=== PATIENT | female | born 1945 | race Caucasian/White ===

== ENCOUNTER → 2019-02-10 | Outpatient (CLI) | payer MEDICARE ==
[~2019-02-10] MED LIST: AC500T PO; ALBU8.5H2 IH; ARMOUR THYROID; ASP81CT PO; ASPI-875 PO; CIPR-17 PO; DIAZ2TAB2 PO; DOXY100C42; ESTR0.5T; FLUC200T45 PO; IBP800T PO; IPRA3AMP19 IH; KETO75CA PO; LEVO500T69 PO; LOVA20TA2 PO; NORE1TAB6; PHEN-640 PO; PRCD5U PO; PRD10T PO; PRD20T PO; PROP20TA5 PO; PROP60CA PO; PROP60TA16 PO; PROPRANOLOL; SMTR50T PO; SULF-222; TAMS0.4C98 PO; THYR60TA2 PO; ZOLM5TAB8 PO
[2019-02-10 17:00] LABS: BASOPHILS % (AUTO) 0 % (0-10); EOSINOPHILS # (AUTO) 0.3 10^3/uL (0.0-0.3); EOSINOPHILS % (AUTO) 2 % (0-10); HEMATOCRIT 43 % (35-52); HEMOGLOBIN 14.3 G/DL (11.5-16.0); LYMPHOCYTES # (AUTO) 3.8 X 10^3 (1.0-4.0); LYMPHOCYTES % (AUTO) 24 % (12-44); MEAN CORPUSCULAR HEMOGLOBIN 30 PG (25-34); MEAN CORPUSCULAR HGB CONC 33 G/DL (32-36); MEAN CORPUSCULAR VOLUME 91 FL (80-99); MEAN PLATELET VOLUME 9.6 FL (7.4-10.4); MONOCYTES # (AUTO) 1.4 X 10^3 (0.0-1.0); MONOCYTES % (AUTO) 9 % (0-12); NEUTROPHILS # (AUTO) 10.2 X 10^3 (1.8-7.8); NEUTROPHILS % (AUTO) 65 % (42-75); PLATELET COUNT 337 10^3/uL (130-400); RED CELL DISTRIBUTION WIDTH 14.7 % (10.0-14.5); WHITE BLOOD COUNT 15.7 10^3/uL (4.3-11.0)
[2019-02-10 17:21] LABS: FIBRIN DEGRADATION PRODUCTS 0.83 UG/ML (0.00-0.49)
--- NOTE | 2019-02-10 17:29 | Diagnostic Imaging Report ---
PROCEDURE: US right lower extremity venous. TECHNIQUE: Multiple real-time grayscale images were obtained over the right lower extremity in various projections. Additional spectral analysis and color Doppler duplex images were also obtained. INDICATION: Right lower extremity pain. COMPARISON: None available. FINDINGS: The visualized deep venous structures of the right lower extremity demonstrate normal compression, flow, and augmentation. Limited evaluation in the area of pain in the medial left calf demonstrates no focal abnormality. No significant superficial edema or loculated fluid collection is demonstrated. IMPRESSION: No evidence of DVT. Dictated by: Dictated on workstation # [id number]
[2019-02-10 17:42] LABS: EOSINOPHILS % (MANUAL) 1 %; LYMPHOCYTES % (MANUAL) 25 %; MONOCYTES % (MANUAL) 11 %; NEUTROPHILS % (MANUAL) 63 %; RBC MORPH NORMAL
== END ==
LOC: RAD 16:35
PROVIDERS: ATTEND Nurse Practitioner Family
DX: M79.604 Pain in right leg (principal)
CPT/HCPCS: 36415; 85007; 85027; 85379; 85610

== ENCOUNTER → 2019-02-25 | Outpatient (CLI) | payer MEDICARE ==
--- NOTE | 2019-02-25 14:17 | Diagnostic Imaging Report ---
INDICATION: Back pain. Time of exam 12:42 p.m. FINDINGS: Three views of the lumbar spine were obtained. Curvature and alignment is normal. There is superior endplate compression deformity involving L1 and L4 vertebral bodies. Age of these are indeterminate. No definite retropulsion is seen. There is some multilevel facet arthropathy. Abdominal aorta is calcified. IMPRESSION: There are superior endplate fractures with some mild compression involving L1 and L4, age indeterminate. MRI would be recommended to evaluate acuity. Dictated by: Dictated on workstation # [id number]
--- NOTE | 2019-02-25 14:41 | Diagnostic Imaging Report ---
INDICATION: Right-sided pelvic pain. TIME OF EXAM: 12:43 p.m. Single AP view of the pelvis shows normal femoroacetabular alignment. Hip joint spaces are fairly well-maintained. The femoral heads and necks are intact. There are no fractures are seen. Rami are unremarkable. IMPRESSION: No acute bony abnormality is detected. Dictated by: Dictated on workstation # [id number]
== END ==
LOC: RAD 12:29
DX: S32.010A Wedge compression fracture of first lumbar vertebra, initial encounter for closed fracture (principal); S32.040A Wedge compression fracture of fourth lumbar vertebra, initial encounter for closed fracture; R10.2 Pelvic and perineal pain
CPT/HCPCS: 72100; 72170

== ENCOUNTER → 2019-03-30 | Outpatient (CLI) | payer MEDICARE ==
--- NOTE | 2019-03-30 10:59 | Diagnostic Imaging Report ---
INDICATION: Baseline COMPARISON: Postmenopausal asymptomatic screening FINDINGS: AP Spine L1-L4: [BMD (g/cm2): 0.865] [T-Score: -2.8] [Z-Score: -0.6] [BMD Previous: N/A] [BMD % Change: N/A] LT Hip Neck: [BMD (g/cm2): 0.550] [T-Score: -3.5] [Z-Score: -1.4] LT Hip Total: [BMD (g/cm2):0.571] [T-Score:-3.5] [Z-Score: -1.5] [BMD Previous: N/A] [BMD % Change: N/A] RT Hip Neck: [BMD (g/cm2):0.549] [T-Score:-3.5] [Z-Score:-1.4] RT Hip Total: [BMD (g/cm2):0.59] [T-score:-3.3] [Z-Score:-1.4] [BMD Previous:N/A] [BMD % Change:N/A] *Indicates significant change from prior examination based on 95% confidence level. World Health Organization criteria for BMD interpretation classify patients as Normal (T-score at or above -1.0), Osteopenic (T-score between -1.0 and -2.5) or Osteoporotic (T-score at or below -2.5). LIMITATIONS AND MODIFICATION: None. FRACTURE RISK (FRAX SCORE): The ten year probability of (%): Major Osteoporotic Fracture: [26.2] Hip Fracture: [16.1] IMPRESSION: 1. Osteoporosis. 2. Baseline examination. 3. See below National Osteoporosis Foundation guidelines on when to potentially initiate pharmacologic therapy. Based on the National Osteoporosis Foundation Guidelines, pharmacologic treatment should be initiated in any of the following, unless clinical conditions suggest otherwise: * Any patient with prior fragility fracture of the hip or vertebrae. A spine fracture indicates 5X risk for subsequent spine fracture and 2X risk for subsequent hip fracture. * Osteoporosis (T-score <-2.5). * Postmenopausal women and men age 50 and older with low bone mass/osteopenia (T-score between -1.0 and -2.5) by DXA and 10-year major osteoporotic fracture greater than 20% or a 10-year probability of hip fracture greater than 3%. These fracture risks are supplied above in the FRAX score, if applicable. * Clinician judgement and/or patient preferences may indicate treatment for people with 10-year fracture probabilities above or below these levels. Dictated by: Dictated on workstation # [id number]
== END ==
LOC: RAD 09:18
DX: Z13.820 Encounter for screening for osteoporosis (principal); M81.0 Age-related osteoporosis without current pathological fracture; Z78.0 Asymptomatic menopausal state
CPT/HCPCS: 77080

== ENCOUNTER 2019-05-31 14:41 | Outpatient (CLI) | payer MEDICARE ==
[~2019-05-31] VITALS: Ht 160 cm; Wt 49.9 kg
--- NOTE | 2019-05-31 16:20 | NUR ---
SAO2 88-89% ON ROOM AIR. O2 PLACED ON PT AT 3L PER NC. STATES SHE USES O2 AT HOME.
--- NOTE | 2019-05-31 16:43 | NUR ---
SL STARTED AND SOLUMEDROL GIVEN SLOW IV PUSH BY Ysohi BATES RN. PT UNSURE IF SHE HAS HAD THIS MEDICATION PREVIOUSLY. WILL MONITOR FOR 30 MIN FOR ADVERSE EFFECTS.
[2019-05-31] MEDS ORDERED: methylPREDNISolone 125 MG (Solu-MEDROL) VIAL IV ONE (16:45)
--- NOTE | 2019-05-31 17:10 | NUR ---
DENIES COMPLAINTS. SAO2 93-94%. PT IS TO FOLLOW UP WITH DR DANIEL TOMORROW AT HIS OFFICE. BABS MENSAH.
[2019-05-31 17:12] VITALS: BP 124/75
--- NOTE | 2019-05-31 17:30 | Diagnostic Imaging Report ---
INDICATION: Shortness of breath and cough. TIME OF EXAM: 2:57 p.m. COMPARISON: Comparison is made with prior exam from 12/10/2015. FINDINGS: The heart size is normal. The lungs are hyperinflated consistent with COPD. No infiltrates are seen. There is no effusion or pneumothorax. There are postop changes in the lower cervical spine. IMPRESSION: No acute cardiopulmonary process is detected. Dictated by: Dictated on workstation # [id number]
== END 2019-05-31 17:12 | disposition home or self-care (01) ==
LOC: RAD 14:41
PROVIDERS: ATTEND Nurse Practitioner Family
DX: J44.1 Chronic obstructive pulmonary disease with (acute) exacerbation (principal); Z98.890 Other specified postprocedural states
CPT/HCPCS: 71046; 96374

== ENCOUNTER 2019-06-07 08:02 | Outpatient (RCR) | payer MEDICARE ==
[2019-06-01 10:44] VITALS: BP 131/88
[2019-06-01] MEDS: methylPREDNISolone 125 MG (Solu-MEDROL) VIAL IV SCH ×2 (11:25→19:52)
[2019-06-01] MEDS: NS IV 1000 ML 1,000 ML IV SCH ×2 (11:30→11:56)
[2019-06-01 20:11] VITALS: BP 130/80
[2019-06-02 07:58] VITALS: BP 131/88
[2019-06-02] MEDS: methylPREDNISolone 125 MG (Solu-MEDROL) VIAL IV SCH ×2 (08:08→19:35)
[2019-06-02 19:51] VITALS: BP 130/80
[2019-06-03] MEDS: methylPREDNISolone 125 MG (Solu-MEDROL) VIAL IV SCH ×2 (08:26→19:38)
[2019-06-03 08:32] VITALS: BP 109/53
[2019-06-03 19:42] VITALS: BP 107/62
[2019-06-04] MEDS: methylPREDNISolone 125 MG (Solu-MEDROL) VIAL IV SCH ×2 (08:03→19:35)
[2019-06-04 10:10] VITALS: BP 109/53
[2019-06-04 19:41] VITALS: BP 102/58
[2019-06-05] MEDS: methylPREDNISolone 125 MG (Solu-MEDROL) VIAL IV SCH ×2 (08:25→19:45)
[2019-06-05 08:27] VITALS: BP 108/63
[2019-06-05 19:48] VITALS: BP 112/55
[2019-06-06 08:24] VITALS: BP 115/67
[2019-06-06] MEDS: methylPREDNISolone 125 MG (Solu-MEDROL) VIAL IV SCH ×2 (08:24→19:53)
[2019-06-06 08:40] LABS: BASOPHILS % (AUTO) 0 % (0-10); EOSINOPHILS % (AUTO) 0 % (0-10); HEMATOCRIT 42 % (35-52); HEMOGLOBIN 14.4 G/DL (11.5-16.0); LYMPHOCYTES # (AUTO) 1.6 X 10^3 (1.0-4.0); LYMPHOCYTES % (AUTO) 13 % (12-44); MEAN CORPUSCULAR HEMOGLOBIN 30 PG (25-34); MEAN CORPUSCULAR HGB CONC 35 G/DL (32-36); MEAN CORPUSCULAR VOLUME 87 FL (80-99); MEAN PLATELET VOLUME 9.2 FL (7.4-10.4); MONOCYTES # (AUTO) 0.9 X 10^3 (0.0-1.0); MONOCYTES % (AUTO) 8 % (0-12); NEUTROPHILS # (AUTO) 9.7 X 10^3 (1.8-7.8); NEUTROPHILS % (AUTO) 79 % (42-75); PLATELET COUNT 347 10^3/uL (130-400); RED CELL DISTRIBUTION WIDTH 14.5 % (10.0-14.5); WHITE BLOOD COUNT 12.2 10^3/uL (4.3-11.0)
[2019-06-06 09:08] LABS: ALBUMIN 3.4 GM/DL (3.2-4.5); BILIRUBIN,TOTAL 0.7 MG/DL (0.1-1.0); CALCIUM 8.6 MG/DL (8.5-10.1); CREATININE SERUM 0.96 MG/DL (0.60-1.30); POTASSIUM 4.2 MMOL/L (3.6-5.0); TOTAL PROTEIN 5.6 GM/DL (6.4-8.2)
[2019-06-06 19:59] VITALS: BP 114/77
[~2019-06-07] VITALS: Ht 160 cm; Wt 49.9 kg
[2019-06-07] MEDS: methylPREDNISolone 125 MG (Solu-MEDROL) VIAL IV SCH ×2 (08:18→19:40)
[2019-06-07 08:22] VITALS: BP 109/72
[2019-06-07 19:45] VITALS: BP 116/62
== END 2019-08-30 | disposition home or self-care (01) ==
LOC: SDC 08:02
PROVIDERS: ATTEND Nurse Practitioner Family
DX: E87.1 Hypo-osmolality and hyponatremia (principal); J44.1 Chronic obstructive pulmonary disease with (acute) exacerbation
CPT/HCPCS: 36415; 80053; 85025; 96361; 96365; 96374; 96375

== ENCOUNTER → 2019-10-11 | Outpatient (CLI) | payer MEDICARE ==
--- NOTE | 2019-10-11 15:27 | Diagnostic Imaging Report ---
INDICATION: Abdominal bloating. KUB. FINDINGS: Lung bases are clear. There is a moderate amount of stool throughout the colon. Bowel gas pattern is normal. There are no pathologic masses. There is a 1 cm linear opacity in the left mid abdomen of uncertain origin. This is likely a foreign body as it was not present on a film from 02/25/2019. IMPRESSION: Fecal stasis. No acute abnormality seen in the abdomen. Dictated by: Dictated on workstation # [id number]
== END ==
LOC: RAD 14:40
DX: K59.09 Other constipation (principal); R19.5 Other fecal abnormalities
CPT/HCPCS: 74018

== ENCOUNTER 2019-11-04 12:30 | Outpatient (CLI) | payer MEDICARE ==
[~2019-11-04] VITALS: Ht 160 cm; Wt 52.3 kg
[~2019-11-04 12:30] MED LIST changes: -TAMS0.4C98 PO; +TMSL.4C PO
[2019-11-04] MEDS ORDERED: ASPI-999 PO (12:35)
[2019-11-04] MEDS ORDERED: THYR90TA PO (12:35)
[2019-11-04] MEDS ORDERED: CHOL2000 PO (12:41)
[2019-11-04] MEDS ORDERED: SPIR25TA5 PO (12:41)
[2019-11-04] MEDS ORDERED: CETI10TA20 PO (12:41)
[2019-11-04] MEDS ORDERED: POTA10TA36 PO (12:41)
[2019-11-04] MEDS ORDERED: RT-ALBUINH IH (12:41)
[2019-11-04] MEDS ORDERED: IPRA0.2S51 IH (12:41)
[2019-11-04] MEDS ORDERED: FURO-124 PO (12:41)
[2019-11-04] MEDS ORDERED: ALEN70TA5 PO (12:41)
[2019-11-04] MEDS ORDERED: PROP60CA PO (12:41)
[2019-11-04] MEDS ORDERED: PRD10T PO (12:41)
[2019-11-04] MEDS ORDERED: CHOL500049 PO (12:41)
[2019-11-04] MEDS ORDERED: CALC600T12 PO (12:41)
[2019-11-04] MEDS ORDERED: FORM20VI IH (12:41)
[2019-11-04] MEDS ORDERED: TMSL.4C PO (12:41)
[2019-11-04] MEDS ORDERED: ETOD400T PO (12:41)
== END 2019-11-04 13:52 | disposition home or self-care (01) ==
LOC: PREOP 12:30
PROVIDERS: ATTEND Surgery
DX: Z01.818 Encounter for other preprocedural examination (principal)

== ENCOUNTER 2021-04-06 15:40 | Inpatient (IN) | payer MEDICARE ==
[~2021-04-06] VITALS: Ht 160 cm; Wt 54.8 kg
[~2021-04-06 15:40] MED LIST changes: +ALEN70TA80 PO; +ASPI-999 PO; +CALC600T91 PO; +CETI10TA49 PO; +CHOL200074 PO; +CHOL500049 PO; +DOXY-311; -DOXY100C42; +ETOD400T3 PO; +FORM20VI IH; +FURO-124 PO; +IPRA0.2S51 IH; +POTA10TA36 PO; +RT-ALBUINH IH; +SPIR25TA5 PO; +THYR90TA PO
--- NOTE | 2021-04-06 16:11 | ED General ---
General Chief Complaint: General Problems/Pain Stated Complaint: MULTIPLE FALLS/L LEG LAC/R SIDE PAIN Source of Information: Patient Exam Limitations: No Limitations (DHARMESH KOO APRN) History of Present Illness Date Seen by Provider: Apr 06, 2021 Time Seen by Provider: 16:08 Initial Comments To ER with reports of multiple falls. She arrives by private vehicle from home. The falls began 3 days ago and most recently yesterday. She has a large skin tear to the anterior aspect of the left lower leg. She did call [facility] to come assess her but then decided she did not want to go to the emergency room so was not transported. She fell again yesterday. She states that her family members thought she might have had a stroke because for the past 6 months she has had some troubles with word searching. She has COPD and is oxygen dependent continues to smoke 1 pack of cigarettes per day. She took a hydrocodone 10/325 just prior to arrival in the emergency room. As a result of the fall she also has some right flank pain for the past several days. Timing/Duration: 2-3 Days Severity: Moderate Associated Systoms: Denies Symptoms (DHARMESH KOO APRN) Allergies and Home Medications Allergies Coded Allergies: nitrofurantoin (Verified Allergy, Severe, RASH, 12/10/15) ITCHING AND RASH sulfamethoxazole (Verified Allergy, Severe, RASH, 12/10/15) ITCHING AND RASH trimethoprim (Verified Allergy, Severe, RASH, 12/10/15) ITCHING AND RASH azithromycin (Verified Allergy, Unknown, 08/14/14) cefixime (Verified Allergy, Unknown, 08/14/14) Home Medications Albuterol Sulfate 1 Puff Puff, 2 PUFF IH Q4H PRN for WHEEZING, (Reported) 1 PUFF = 90 MCG Alendronate Sodium 70 Mg Tablet, 70 MG PO WEEK, (Reported) Aspirin 81 Mg Tab.chew, 81 MG PO DAILY, (Reported) Calcium Carbonate 600 Mg Tablet, 1,200 MG PO DAILY, (Reported) Cetirizine HCl 10 Mg Tablet, 10 MG PO DAILY, (Reported) Cholecalciferol (Vitamin D3) 50 Mcg Capsule, 50 MCG PO DAILY, (Reported) Cholecalciferol (Vitamin D3) 50,000 Unit Capsule, 50,000 UNIT PO WEEK, (Reported) Etodolac 400 Mg Tablet, 400 MG PO DAILY PRN for joint swelling, (Reported) Formoterol Fumarate 20 Mcg/2 Ml Vial.neb, 20 MCG IH BID, (Reported) Furosemide 40 Mg Tablet, 40 MG PO DAILY, (Reported) Ipratropium [place] 0.2 Mg/1 Ml Solution, 0.2 MG IH TID PRN for SHORTNESS OF BREATH, (Reported) Potassium Chloride 10 Meq Tab.er.prt, 10 MEQ PO DAILY, (Reported) Prednisone 10 Mg Tab, 10 MG PO DAILY, (Reported) Propranolol HCl Unknown Strength Cap.sa.24h, 1 CAP PO DAILY, (Reported) Spironolactone 25 Mg Tablet, 25 MG PO DAILY, (Reported) Tamsulosin HCl 0.4 Mg Cap, 0.4 MG PO HS, (Reported) Thyroid,Pork 90 Mg Tablet, 90 MG PO DAILY, (Reported) Patient Home Medication List Home Medication List Reviewed: Yes (DHARMESH KOO APRN) Review of Systems Review of Systems Constitutional: see HPI EENTM: see HPI Respiratory: no symptoms reported Cardiovascular: no symptoms reported Genitourinary: no symptoms reported Musculoskeletal: no symptoms reported Skin: no symptoms reported Psychiatric/Neurological: No Symptoms Reported Hematologic/Lymphatic: No Symptoms Reported Immunological/Allergic: no symptoms reported (DHARMESH KOO APRN) Past Svxmlhb-Vbmnma-Tdlrbl Hx Patient Social History Type Used: Cigarettes 2nd Hand Smoke Exposure: Yes Recent Hopitalizations: No (DHARMESH KOO APRN) Immunizations Up To Date PED Vaccines UTD: No Date of Pneumonia Vaccine: May 13, 2013 Date of Influenza Vaccine: Aug 16, 2019 (DHARMESH KOO APRN) Seasonal Allergies Seasonal Allergies: Yes (DHARMESH KOO APRN) Past Medical History Surgeries: Yes (cervical spine, teeth removal) Breast, Orthopedic, Thyroidectomy Respiratory: Yes Pneumonia, COPD Cardiac: No (lower extremity edema) Neurological: Yes (TREMORS) Headaches /Migraines Reproductive Disorders: No Female Reproductive Disorders: Denies Genitourinary: Yes (retention) Bladder Infection Gastrointestinal: No Musculoskeletal: Yes (CERVICAL SPINE SX) Osteoporosis, Chronic Back Pain Endocrine: Yes (BENIGN THYROID TUMOR) Hypothyroidsim HEENT: No Cancer: No Psychosocial: Yes Anxiety Integumentary: No Blood Disorders: No (DHARMESH KOO APRN) Family Medical History Bladder problems G8 SISTER FH: lung cancer 19 FATHER Thyroid disease 19 MOTHER Physical Exam Vital Signs Vital Signs - First Documented 04/06/21 16:08 Temp 36.9 Pulse 89 Resp 22 B/P (MAP) 101/52 (68) Pulse Ox 96 O2 Delivery Room Air (KENDRA LYN MD) Vital Signs Capillary Refill : (DHARMESH KOO APRN) Height, Weight, BMI Height: 5'3.00" Weight: 110lbs. 0.0oz. 49.867238bf; 20.42 BMI Method:Stated General Appearance: No Apparent Distress, WD/WN, Chronically ill (Appears in a poor state of overall health, speaks in full sentences and is no acute distress. There is a scab over the lateral aspect of the left eyebrow likely from one of her falls.) Eyes: Bilateral Eye Normal Inspection, Bilateral Eye PERRL, Bilateral Eye EOMI HEENT: PERRL/EOMI, TMs Normal Neck: Full Range of Motion, Normal Inspection Respiratory: No Accessory Muscle Use, No Respiratory Distress, Decreased Breath Sounds Cardiovascular: Regular Rate, Rhythm Gastrointestinal: Normal Bowel Sounds, Non Tender, Soft Neurologic/Psychiatric: Alert, Oriented x3 Skin: Normal Color, Warm/Dry, Other (Ecchymosis and large skin tear with a small portion of this down to the bone of the anterior tibia on the left) (DHARMESH KOO APRN) Focused Exam Lactate Level 04/06/21 17:58: Lactic Acid Level 1.72 (KENDRA LYN MD) Lactic Acid Level Laboratory Tests Test 04/06/21 17:58 Lactic Acid Level 1.72 MMOL/L (0.50-2.00) (KENDRA LYN MD) Progress/Results/Core Measures Suspected Sepsis SIRS Temperature: Pulse: Respiratory Rate: Laboratory Tests 04/06/21 16:36: White Blood Count 17.5H Blood Pressure / Mean: 04/06/21 17:58: Lactic Acid Level 1.72 Laboratory Tests 04/06/21 16:36: Creatinine 2.45H, Platelet Count 392, Total Bilirubin 0.4 (DHARMESH KOO APRN) Results/Orders Lab Results Laboratory Tests Test 04/06/21 16:26 04/06/21 16:36 04/06/21 17:58 04/06/21 18:40 Range/Units Blood Gas Puncture Site RT RADIAL Blood Gas Patient Temperature 98.3 Arterial Blood pH 7.46 H 7.37-7.43 Arterial Blood Partial Pressure CO2 38 35-45 MMHG Arterial Blood Partial Pressure O2 78 L 79-93 MMHG Arterial Blood HCO3 27 23-27 MMOL/L Arterial Blood Total CO2 28.0 21.0-31.0 MMOL/L Arterial Blood Oxygen Saturation 97 94-100 % Arterial Blood Base Excess 3.1 H -2.5-2.5 MMOL/L [place] Test YES-POS Blood Gas Ventilator Setting NO Blood Gas Inspired Oxygen 3 White Blood Count 17.5 H 4.3-11.0 10^3/uL Red Blood Count 3.80 3.80-5.11 10^6/uL Hemoglobin 11.3 L 11.5-16.0 g/dL Hematocrit 35 35-52 % Mean Corpuscular Volume 92 80-99 fL Mean Corpuscular Hemoglobin 30 25-34 pg Mean Corpuscular Hemoglobin Concent 32 32-36 g/dL Red Cell Distribution Width 14.9 H 10.0-14.5 % Platelet Count 392 130-400 10^3/uL Mean Platelet Volume 9.8 9.0-12.2 fL Immature Granulocyte % (Auto) 1 % Neutrophils (%) (Auto) 81 H 42-75 % Lymphocytes (%) (Auto) 10 L 12-44 % Monocytes (%) (Auto) 7 0-12 % Eosinophils (%) (Auto) 1 0-10 % Basophils (%) (Auto) 0 0-10 % Neutrophils # (Auto) 14.1 H 1.8-7.8 10^3/uL Lymphocytes # (Auto) 1.7 1.0-4.0 10^3/uL Monocytes # (Auto) 1.2 H 0.0-1.0 10^3/uL Eosinophils # (Auto) 0.2 0.0-0.3 10^3/uL Basophils # (Auto) 0.1 0.0-0.1 10^3/uL Immature Granulocyte # (Auto) 0.2 H 0.0-0.1 10^3/uL Neutrophils % (Manual) 84 % Lymphocytes % (Manual) 10 % Monocytes % (Manual) 5 % Eosinophils % (Manual) 1 % Poikilocytosis SLIGHT Anisocytosis SLIGHT Sodium Level 133 L 135-145 MMOL/L Potassium Level 3.9 3.6-5.0 MMOL/L Chloride Level 86 L 98-107 MMOL/L Carbon Dioxide Level 23 21-32 MMOL/L Anion Gap 24 H 5-14 MMOL/L Blood Urea Nitrogen 39 H 7-18 MG/DL Creatinine 2.45 H 0.60-1.30 MG/DL Estimat Glomerular Filtration Rate 19 BUN/Creatinine Ratio 16 Glucose Level 66 L 70-105 MG/DL Calcium Level 10.6 H 8.5-10.1 MG/DL Corrected Calcium 11.1 H 8.5-10.1 MG/DL Magnesium Level 1.8 1.6-2.4 MG/DL Total Bilirubin 0.4 0.1-1.0 MG/DL Aspartate Amino Transf (AST/SGOT) 26 5-34 U/L Alanine Aminotransferase (ALT/SGPT) 16 0-55 U/L Alkaline Phosphatase 47 40-136 U/L B-Type Natriuretic Peptide 259.1 H <100.0 PG/ML Total Protein 6.9 6.4-8.2 GM/DL Albumin 3.4 3.2-4.5 GM/DL Lactic Acid Level 1.72 0.50-2.00 MMOL/L Urine Color YELLOW Urine Clarity CLEAR Urine pH 5.5 5-9 Urine Specific [place] 1.010 L 1.016-1.022 Urine Protein NEGATIVE NEGATIVE Urine Glucose (UA) NEGATIVE NEGATIVE Urine Ketones TRACE H NEGATIVE Urine Nitrite NEGATIVE NEGATIVE Urine Bilirubin NEGATIVE NEGATIVE Urine Urobilinogen 0.2 < = 1.0 MG/DL Urine Leukocyte Esterase NEGATIVE NEGATIVE Urine RBC (Auto) NEGATIVE NEGATIVE Urine RBC NONE /HPF Urine WBC 0-2 /HPF Urine Squamous Epithelial Cells 10-25 H /HPF Urine Renal Epithelial Cells 5-10 /HPF Urine Crystals NONE /LPF Urine Bacteria FEW H /HPF Urine Casts PRESENT /LPF Urine Hyaline Casts 5-10 H /LPF Urine Mucus NEGATIVE /LPF Urine Culture Indicated NO (KENDRA LYN MD) Vital Signs/I&O 04/06/21 16:08 Temp 36.9 Pulse 89 Resp 22 B/P (MAP) 101/52 (68) Pulse Ox 96 O2 Delivery Room Air (KENDRA LYN MD) Vital Signs/I&O Capillary Refill : (DHARMESH KOO APRN) Diagnostic Imaging Diagonstic Imaging: CT Comments NAME: AYO CHÁVEZ [facility] REC#: [id number] PT STATUS: REG ER : 1945 PHYSICIAN: DHARMESH KOO APRN ADMIT DATE: 04/06/21/ER Draft Date of Exam:04/06/21 CT HEAD/CERVICAL SPINE WO PROCEDURE: CT head and CT cervical spine without contrast. TECHNIQUE: Multiple contiguous axial images were obtained through the brain and cervical spine without the use of intravenous contrast. Sagittal and coronal reformations through the cervical spine were then performed. Auto Exposure Controls were utilized during the CT exam to meet ALARA standards for radiation dose reduction. INDICATION: Fall x3 recently. Head injury. EXAMINATION: CT brain and CT cervical spine from 04/06/2021. FINDINGS: BRAIN: There is no evidence for hemorrhage or infarct. No mass, mass effect, or midline shift. No hydrocephalus. The calvarium is intact. Paranasal sinuses and mastoid air cells are clear. IMPRESSION: 1. No acute intracranial process. CT CERVICAL SPINE: There are bilateral intrapedicular screws with intervening rods along the anterior aspect of the cervical spine extending from C5 through C7. The orthopedic hardware appears intact. There is grade 1 anterolisthesis at C4-C5 with minimal grade 1 retrolisthesis at C3-C4. Remaining alignment is preserved. Vertebral body heights are maintained. No acute fractures identified. Pleural thickening noted in the apex on the right with mild emphysematous disease also noted bilaterally. Prevertebral soft tissues appear unremarkable. IMPRESSION: 1. Postoperative findings in the cervical spine with multilevel degenerative changes also noted. No acute osseous abnormality appreciated. Dictated on workstation # [id number] Dict: 04/06/21 1739 Trans: 04/06/21 1750 [id number] Interpreted by: MAYRA GARRIDO MD Electronically signed by: NAME: AYO [facility]Z [facility] REC#: [id number] PT STATUS: REG ER : 1945 PHYSICIAN: DHARMESH KOO APRN ADMIT DATE: 04/06/21/ER Draft Date of Exam:04/06/21 TIBIA/FIBULA, LEFT, 2 VIEWS INDICATION: Multiple recent falls. Gash to the anterior tibia and fibula. EXAMINATION: Left tibia and fibula from 04/06/2021 FINDINGS: 4 views of the tibia and fibula. There is an opacity overlying the medial soft tissues of the proximal tibia and fibula possibly an overlying bandage, correlate clinically. No underlying radiopaque foreign bodies appreciated. There are no acute osseous abnormalities. The joint spaces appear preserved. IMPRESSION: 1. No acute osseous abnormality with no radiopaque foreign bodies appreciated. Dictated on workstation # [id number] Dict: 04/06/21 1754 Trans: 04/06/21 [id number] CV [id number] Interpreted by: MAYRA GARRIDO MD Electronically signed by: (DHARMESH KOO APRN) Departure Impression Primary Impression: Acute kidney injury Additional Impressions: Frequent falls Right rib fracture Disposition: 01 HOME, SELF-CARE Condition: Stable Departure-Patient Inst. Referrals: TIA DANIEL MD (PCP/Family) Primary Care Physician ATTENDING PHYSICIAN NOTE: I was physically present as attending physician in the emergency department during the care of this patient, but I was not directly involved in the decision making or delivery of care for this patient. (KENDRA LYN MD) DHARMESH KOO APRN Apr 06, 2021 16:11 KENDRA LYN MD Apr 07, 2021 06:37
[2021-04-06] MEDS ORDERED: TETANUS,DIPTH,PERTUSS P/F (BOOSTRIX) 0.5 ML VIAL IM ONE (16:15)
[2021-04-06] MEDS ORDERED: NS IV 500 ML 500 ML IV SCH (16:15)
[2021-04-06 16:32] LABS: ABG BASE EXCESS 3.1 MMOL/L (-2.5-2.5); ABG OXYGEN SATURATION 97 % (94-100); ABG PCO2 38 MMHG (35-45); ABG PH 7.46 (7.37-7.43); ABG PO2 78 MMHG (79-93)
[2021-04-06 16:34] LABS: ALLENS TEST YES-POS; INSPIRED O2 3; PATIENT TEMP 98.3; VENTILATOR NO
[2021-04-06 16:43] LABS: BASOPHILS # (AUTO) 0.1 10^3/uL (0.0-0.1); BASOPHILS % (AUTO) 0 % (0-10); EOSINOPHILS # (AUTO) 0.2 10^3/uL (0.0-0.3); EOSINOPHILS % (AUTO) 1 % (0-10); HEMATOCRIT 35 % (35-52); HEMOGLOBIN 11.3 g/dL (11.5-16.0); LYMPHOCYTES # (AUTO) 1.7 10^3/uL (1.0-4.0); LYMPHOCYTES % (AUTO) 10 % (12-44); MEAN CORPUSCULAR HEMOGLOBIN 30 pg (25-34); MEAN CORPUSCULAR HGB CONC 32 g/dL (32-36); MEAN CORPUSCULAR VOLUME 92 fL (80-99); MEAN PLATELET VOLUME 9.8 fL (9.0-12.2); MONOCYTES # (AUTO) 1.2 10^3/uL (0.0-1.0); MONOCYTES % (AUTO) 7 % (0-12); NEUTROPHILS # (AUTO) 14.1 10^3/uL (1.8-7.8); NEUTROPHILS % (AUTO) 81 % (42-75); PLATELET COUNT 392 10^3/uL (130-400); WHITE BLOOD COUNT 17.5 10^3/uL (4.3-11.0)
[2021-04-06 16:53] LABS: ALBUMIN 3.4 GM/DL (3.2-4.5); POTASSIUM 3.9 MMOL/L (3.6-5.0)
[2021-04-06 16:55] LABS: CALCIUM 10.6 MG/DL (8.5-10.1)
[2021-04-06 16:56] LABS: TOTAL PROTEIN 6.9 GM/DL (6.4-8.2)
[2021-04-06 16:57] LABS: BILIRUBIN,TOTAL 0.4 MG/DL (0.1-1.0)
[2021-04-06 16:59] LABS: CREATININE SERUM 2.45 MG/DL (0.60-1.30)
[2021-04-06 17:01] LABS: ANISOCYTOSIS SLIGHT; EOSINOPHILS % (MANUAL) 1 %; LYMPHOCYTES % (MANUAL) 10 %; MONOCYTES % (MANUAL) 5 %; NEUTROPHILS % (MANUAL) 84 %; POIKILOCYTOSIS SLIGHT
[2021-04-06 17:02] LABS: MAGNESIUM 1.8 MG/DL (1.6-2.4)
[2021-04-06] MEDS ORDERED: fentaNYL INJ 100 MCG/2 ML AMP ONE (17:19)
[2021-04-06] MEDS ORDERED: fentaNYL INJ 100 MCG/2 ML AMP IVP ONE ×2 (17:30)
--- NOTE | 2021-04-06 17:51 | Diagnostic Imaging Report ---
PROCEDURE: CT head and CT cervical spine without contrast. TECHNIQUE: Multiple contiguous axial images were obtained through the brain and cervical spine without the use of intravenous contrast. Sagittal and coronal reformations through the cervical spine were then performed. Auto Exposure Controls were utilized during the CT exam to meet ALARA standards for radiation dose reduction. INDICATION: Fall x3 recently. Head injury. EXAMINATION: CT brain and CT cervical spine from 04/06/2021. FINDINGS: BRAIN: There is no evidence for hemorrhage or infarct. No mass, mass effect, or midline shift. No hydrocephalus. The calvarium is intact. Paranasal sinuses and mastoid air cells are clear. IMPRESSION: 1. No acute intracranial process. CT CERVICAL SPINE: There are bilateral intrapedicular screws with intervening rods along the anterior aspect of the cervical spine extending from C5 through C7. The orthopedic hardware appears intact. There is grade 1 anterolisthesis at C4-C5 with minimal grade 1 retrolisthesis at C3-C4. Remaining alignment is preserved. Vertebral body heights are maintained. No acute fractures identified. Pleural thickening noted in the apex on the right with mild emphysematous disease also noted bilaterally. Prevertebral soft tissues appear unremarkable. IMPRESSION: 1. Postoperative findings in the cervical spine with multilevel degenerative changes also noted. No acute osseous abnormality appreciated. Dictated by: Dictated on workstation # [id number]
--- NOTE | 2021-04-06 17:59 | Diagnostic Imaging Report ---
PROCEDURE: CT chest, abdomen, and pelvis without contrast. TECHNIQUE: Multiple contiguous axial images were obtained through the chest, abdomen, and pelvis without the use of intravenous contrast. Auto Exposure Controls were utilized during the CT exam to meet ALARA standards for radiation dose reduction. INDICATION: Falls, right-sided back pain There are slightly displaced fractures of the right 2nd through 8th ribs. These were not present on the prior CT chest exam of 08/14/14 and consequently most likely acute or subacute in nature. There is no sign of a pneumothorax on the right. There also appear to be healed fractures of the left 3rd through 6th ribs. Suspect these are long-standing in nature. The prominent area of atelectasis and consolidation in the right lung base seen previously is again evident although is somewhat less conspicuous than on the prior study. The left lung remains generally clear. The heart size is within normal limits. Coronary artery calcifications are evident. The aorta is not abnormally dilated. There is no obvious mediastinal or hilar adenopathy. The thyroid gland was not well visualized. The orthopedic hardware overlying the cervicothoracic junction seen previously is partially visualized on this study. There is no obvious breast mass. The suspected cyst in the medial aspect of the right lobe of the liver seen previously is again evident. The cyst does measure slightly larger and is now estimated to be approximately 4.0 cm as opposed to 3.4 cm on the prior study. The liver is otherwise unremarkable. The spleen, pancreas, adrenals, gallbladder, kidneys, aorta and inferior vena cava show no sign of an acute abnormality. The stomach is not well-distended and consequently difficult to assess. As on the prior exam, the urinary bladder is distended by urine and the uterus is small. There is no pelvic mass or free fluid collection evident. The appendix was visualized and is not abnormally thickened. There are few diverticula in the sigmoid and descending colon but there is no evidence for acute diverticulitis. The reconstructed parasagittal images show mild compression deformities of the superior endplates of L1 and L4 as well as T5 and T3. These injuries are indeterminate in age but could be acute or subacute in nature. If further evaluation is desired, then MRI would be recommended. IMPRESSION: 1. There are multiple slightly displaced fractures involving the right ribs and several slightly displaced healed fractures of the left ribs. There is no sign of a pneumothorax, however. 2. The prominent area of atelectasis and consolidation in the right lung base seen previously is not as conspicuous on this exam. There is still a fair amount of residual density present, however. 3. There is no acute cardiopulmonary abnormality identified otherwise. 4. There is no acute abnormality of the abdomen or pelvis noted. 5. There are multiple compression deformities involving the thoracic and lumbar spine. These are indeterminate in age. Additional considerations as above. Dictated by: Dictated on workstation # [id number]
--- NOTE | 2021-04-06 18:02 | Diagnostic Imaging Report ---
INDICATION: Multiple recent falls. Gash to the anterior tibia and fibula. EXAMINATION: Left tibia and fibula from 04/06/2021 FINDINGS: 4 views of the tibia and fibula. There is an opacity overlying the medial soft tissues of the proximal tibia and fibula possibly an overlying bandage, correlate clinically. No underlying radiopaque foreign bodies appreciated. There are no acute osseous abnormalities. The joint spaces appear preserved. IMPRESSION: 1. No acute osseous abnormality with no radiopaque foreign bodies appreciated. Dictated by: Dictated on workstation # [id number]
[2021-04-06 19:15] LABS: BILIRUBIN,URINE NEGATIVE (NEGATIVE); CLARITY,URINE CLEAR; COLOR,URINE YELLOW; GLUCOSE, URINE (UA) NEGATIVE (NEGATIVE); KETONES,URINE TRACE (NEGATIVE); LEUKOCYTE ESTERASE ,URINE NEGATIVE (NEGATIVE); NITRITE,URINE NEGATIVE (NEGATIVE); PH,URINE 5.5 (5-9); PROTEIN,URINE NEGATIVE (NEGATIVE)
[2021-04-06 19:32] LABS: BACTERIA,URINE FEW /HPF; WBC,URINE 0-2 /HPF
[2021-04-06 20:35] VITALS: BP 93/62
[2021-04-06] MEDS ORDERED: fentaNYL INJ 100 MCG/2 ML AMP IV PRN (21:30)
[2021-04-06] MEDS ORDERED: ONDANSETRON 4 MG/2 ML (SDV) Z0FRAN IV PRN (21:30)
[2021-04-06] MEDS: CEPHALEXIN 250 MG (KEFLEX) CAP PO SCH (21:50)
[2021-04-06] MEDS: LACTATED RINGERS 1,000 ML IV SCH (21:50)
[2021-04-06 23:40] VITALS: BP 101/52
[2021-04-06 23:46] VITALS: BP 92/60
[2021-04-07] MEDS ORDERED: RT-ALBUTEROL/IPRATROPIUM 3 ML (DUONEB) VIAL INH PRN (00:15)
[2021-04-07 04:13] VITALS: BP 101/50
[2021-04-07] MEDS: LACTATED RINGERS 1,000 ML IV SCH ×3 (05:12→20:36)
[2021-04-07 05:13] LABS: BASOPHILS % (AUTO) 0 % (0-10); EOSINOPHILS # (AUTO) 0.3 10^3/uL (0.0-0.3); EOSINOPHILS % (AUTO) 2 % (0-10); HEMATOCRIT 31 % (35-52); HEMOGLOBIN 9.8 g/dL (11.5-16.0); LYMPHOCYTES # (AUTO) 1.5 10^3/uL (1.0-4.0); LYMPHOCYTES % (AUTO) 12 % (12-44); MEAN CORPUSCULAR HEMOGLOBIN 30 pg (25-34); MEAN CORPUSCULAR HGB CONC 31 g/dL (32-36); MEAN CORPUSCULAR VOLUME 95 fL (80-99); MEAN PLATELET VOLUME 9.4 fL (9.0-12.2); MONOCYTES # (AUTO) 1.1 10^3/uL (0.0-1.0); MONOCYTES % (AUTO) 9 % (0-12); NEUTROPHILS # (AUTO) 9.5 10^3/uL (1.8-7.8); NEUTROPHILS % (AUTO) 76 % (42-75); PLATELET COUNT 322 10^3/uL (130-400); WHITE BLOOD COUNT 12.5 10^3/uL (4.3-11.0)
[2021-04-07 05:28] LABS: POTASSIUM 3.8 MMOL/L (3.6-5.0)
[2021-04-07 05:29] LABS: CALCIUM 9.2 MG/DL (8.5-10.1)
[2021-04-07 05:34] LABS: CREATININE SERUM 2.07 MG/DL (0.60-1.30)
[2021-04-07] MEDS: predniSONE 10 MG TAB PO SCH ×2 (05:46→06:00)
[2021-04-07 07:56] VITALS: BP 109/53
--- NOTE | 2021-04-07 08:56 | Physical Therapy Evaluation ---
PT Evaluation-General Medical Diagnosis Admission Date Apr 06, 2021 at 19:26 Medical Diagnosis: ABHAY/rib fracture/left LE wound Onset Date: Apr 06, 2021 Therapy Diagnosis Therapy Diagnosis: debility/weakness Height/Weight Height (Feet): 5 Height (Inches): 3.00 Weight (Pounds): 110 Weight (Ounces): 0.0 Precautions Precautions/Isolations: Standard Precautions Referral Physician: Balwinder Reason for Referral: Evaluation/Treatment Medical History Pertinent Medical History: COPD (O2 dependent), Smoking Current History ER secondary to multiple falls Reviewed History: Yes Social History Home: Single Level Current Living Status: Other Family Prior Prior Level of Function SCALE: Activities may be completed with or without assistive devices. 4-Kfinnbijga-wgydcnc completes the activity by him/herself with no assistance from a helper. 5-Set-up or Clean-up Assistance-helper sets up or cleans up; patient completes activity. [place] assists only prior to or following the activity. 4-Supervision or Touching Assistance-helper provides verbal cues and/or touching/steadying and/or contact guard assistance as patient completes activity. Assistance may be provided throughout the activity or intermittently. 3-Partial/Moderate Assistance-helper does LESS THAN HALF the effort. [place] lifts, holds or supports trunk or limbs, but provides less than half the effort. 2-Substantial/Maximal Assistance-helper does MORE THAN HALF the effort. [place] lifts or holds trunk or limbs and provides more than half the effort. 2-Vwujsvgwd-llggpa does ALL the effort. Patient does none of the effort to complete the activity. Or, the assistance of 2 or more helpers is required for the patient to complete the activity. If activity was not attempted, code reason: 7-Patient Refused. 9-Not Applicable-not attempted and the patient did not perform the activity before the current illness, exacerbation or injury. 10-Not Attempted due to Environmental Limitations-(lack of equipment, weather restraints, etc.). 88-Not Attempted due to Medical Conditions or Safety Concerns. Bed Mobility: 6 Transfers (B,C,W/C): 6 Gait: 6 Stairs: 6 Indoor Mobility (Ambulation): Independent Stairs: Independent Prior Devices Use: None PT Evaluation-Current Subjective Patient reluctantly agrees to PT. Objective Patient Orientation: Person, Time, Situation Attachments: Oxygen, IV ROM/Strength ROM Lower Extremities bilateral LE WFL Strength Lower Extremities 3/5 grossly bilateral LE all planes Integumentary/Posture Integumentary refer to nursing notes Bowel Incontinence: No Bladder Incontinence: No Posture slightly kyphotic Neuromuscular (Tone, Coordination, Reflexes) grossly intact Sensory Vision: Wears Glasses Hearing: Functional Transfers Roll Left to Right (QC): 3 Lying to Sitting/Side of Bed(Q: 3 Sit to Stand (QC): 3 Chair/Qja-ca-Conll Xfer(QC): 3 Toilet Transfer (QC): 3 (patient toileted self independently) Gait Does the Patient Walk?: Yes Mode of Locomotion: Walk Anticipated Mode of Locomotion: Walk Walk 10 feet (QC): 4 Walk 50 ft with 2 Turns(QC): 4 Walk 150 ft (QC): 7 Gait Assistive Device: FWW Comments/Gait Description slow, functional gait sequence Balance Sitting Static: Normal Sitting Dynamic: Normal Standing Static: Fair Standing Dynamic: Fair Assessment/Needs 76 y.o. female, will benefit from skilled PT to address functional strength and mobility to improve current LOF to safely return to home with family at maximum LOF. Rehab Potential: Fair PT [facility] Goals Systems Analyst Developer Goals PT [facility] Goals Time Frame: Apr 14, 2021 Roll Left & Right (QC): 6 Sit to Lying (QC): 6 Lying-Sitting on Side/Bed(QC): 6 Sit to Stand (QC): 6 Chair/Oyw-ml-Cxsve Xfer(QC): 6 Toilet Transfer (QC): 6 Does the Patient Walk: Yes Walk 10 feet (QC): 6 Walk 50ft with 2 Turns (QC): 6 Walk 150 ft (QC): 6 PT Plan Problem List Problem List: Activity Tolerance, Functional Strength, Safety, Balance, Gait, Transfer, Bed Mobility Treatment/Plan Treatment Plan: Continue Plan of Care Treatment Plan: Bed Mobility, Education, Functional Activity [place], Functional Strength, Gait, Safety, Therapeutic Exercise, Transfers Treatment Duration: Apr 14, 2021 Frequency: 6 times per week Estimated Hrs Per Day: .25 hour per day Patient and/or Family Agrees t: Yes Time/GCodes Time In: 803 Time Out: 820 Total Billed Treatment Time: 17 Total Billed Treatment 1 visit EVModC 17 min JOHNSON FELIZ PT Apr 07, 2021 08:56
[2021-04-07] MEDS: DOCUSATE SODIUM 100 MG (COLACE) CAP PO SCH ×2 (09:07→20:29)
[2021-04-07] MEDS: CEPHALEXIN 250 MG (KEFLEX) CAP PO SCH ×3 (09:08→20:29)
--- NOTE | 2021-04-07 09:13 | Occupational Therapy Eval ---
OT Evaluation-General/PLF Medical Diagnosis Admission Date Apr 06, 2021 at 19:26 Medical Diagnosis: ABHAY/rib fracture/left LE wound Onset Date: Apr 06, 2021 Therapy Diagnosis Therapy Diagnosis: decreased ADL status Height/Weight Height (Feet): 5 Height (Inches): 3.00 Weight (Pounds): 110 Weight (Ounces): 0.0 Precautions Precautions/Isolations: Standard Precautions Referral Physician: Balwinder Referral Reason: Evaluation/Treatment Medical History Pertinent Medical History: COPD (O2 dependent), Smoking Additional Medical History cervical spine surgery, tremors, benign thyroid tumor, hypothyroidism Current History ED due to multiple falls over last several days. Social History Home: Single Level Current Living Status: Spouse ADL-Prior Level of Function SCALE: Activities may be completed with or without assistive devices. 2-Aqehmvlihh-gvdrutn completes the activity by him/herself with no assistance from a helper. 5-Set-up or Clean-up Assistance-helper sets up or cleans up; patient completes activity. [place] assists only prior to or following the activity. 4-Supervision or Touching Assistance-helper provides verbal cues and/or touching/steadying and/or contact guard assistance as patient completes activity. Assistance may be provided throughout the activity or intermittently. 3-Partial/Moderate Assistance-helper does LESS THAN HALF the effort. [place] lifts, holds or supports trunk or limbs, but provides less than half the effort. 2-Substantial/Maximal Assistance-helper does MORE THAN HALF the effort. [place] lifts or holds trunk or limbs and provides more than half the effort. 9-Ojhekyvjn-fnsenq does ALL the effort. Patient does none of the effort to complete the activity. Or, the assistance of 2 or more helpers is required for the patient to complete the activity. If activity was not attempted, code reason: 7-Patient Refused. 9-Not Applicable-not attempted and the patient did not perform the activity before the current illness, exacerbation or injury. 10-Not Attempted due to Environmental Limitations-(lack of equipment, weather restraints, etc.). 88-Not Attempted due to Medical Conditions or Safety Concerns. ADL PLOF Comments Pt indicates her assists her with walking around the house, she owns a 4WW, but only uses on occasion. She is able to get dressed herself, bathe herself, and toilet herself, but has assistance walking into bathroom. She has a tub/shower with a shower chair. Self Care: Needed Some Help DME/Equipment: Bath Chair, Tub/Shower OT Current Status Subjective Pt seated in recliner sleeping, awoken and agreeable to OT evaluation. Mental Status/Objective Patient Orientation: Person, Place, Situation Attachments: IV, Oxygen Current Glasses/Contacts: Yes Hand Dominance: Right Upper Extremity ROM BUE WFL, shoulder flexion to approx 140 degrees Upper Extremity Coordination WFL Upper Extremity Sensation WFL Upper Extremity Strength grossly 3/5 ADL-Treatment Eating (QC): 4 (SBA with taking drink of coffee, pt almost spilled onto self, requiring cue) Oral Hygiene (QC): 4 (SBA, pt able to complete oral care at tray table, required minimal cues for sequencing.) Other Treatments Pt seated in recliner, awoken and agreeable to OT Tx. OT educated pt on purpose and benefit of OT tx, she verbalized understanding. Pt provided information about PLOF and home set up, and participated in UE screen. OT asked pt if she has had breakfast, she shakes her head no, and indicates she isn't hungry. She does take a few drinks of her coffee. Pt agreeable to brushing her hair and teeth. Combed hair with set up assist, SBA for oral care due to min verbal cues for sequencing. Pt's arrived. Pt informs she would like him to order her breakfast. OT offers assistance and calls breakfast in for pt. Post tx, pt seated in recliner, call light in reach and all needs met. Education OT Patient Education: Correct positioning, Modified ADL techniques, Progress toward Goal/Update tx plan, Purpose of tx/functional activities, Rehab process Teaching Recipient: Patient Teaching Methods: Discussion Response to Teaching: Verbalize Understanding OT Group Home Goals Telecom Billing Analyst Goals Time Frame: Apr 14, 2021 Eating (QC): 6 Oral Hygiene (QC): 6 Toileting Hygiene (QC): 4 Shower/Bathe Self (QC): 4 Upper Body Dressing (QC): 5 Lower Body Dressing (QC): 4 On/Off Footwear (QC): 4 Additional Goals: 1-Demonstrate ADL Tasks, 2-Verbalize Understanding, 3- ImproveStrength/[place] 1=Demonstrate adherence to instructed precautions during ADL tasks. 2=Patient will verbalize/demonstrate understanding of assistive devices/modifica tions for ADL. 3=Patient will improve strength/tolerance for activity to enable patient to perform ADL's. OT Education/Plan Problem List/Assessment Assessment: Decreased Activ Tolerance, Decreased UE Strength, Impaired Funct Balance, Impaired I ADL's, Impaired Self-Care Skills, Restricted Funct UE ROM Discharge Recommendations Plan/Recommendations: Continue POC Treatment Plan/Plan of Care Patient would benefit from OT for education, treatment and training to promote independence in ADL's, mobility, safety and/or upper extremity function for ADL's. Plan of Care: ADL Retraining, Functional Mobility, UE Funct Exercise/Act Treatment Duration: Apr 14, 2021 Frequency: 5 times per week Estimated Hrs Per Day: .25 hour per day Rehab Potential: Fair Time/GCodes Start Time: 08:37 Stop Time: 08:57 Total Time Billed (hr/min): 20 Billed Treatment Time 1, SRINIVASAN BENITES OT Apr 07, 2021 09:13
[2021-04-07] MEDS: RT-ALBUTEROL/IPRATROPIUM 3 ML (DUONEB) VIAL INH SCH ×2 (10:00→19:55)
[2021-04-07 11:46] VITALS: BP 101/51
--- NOTE | 2021-04-07 12:36 | Consultation - Surgery ---
History of Present Illness History of Present Illness Patient Consulted On(paz/time) 04/07/21 12:30 Time Seen by Provider: 11:25 History of Present Illness Surgery asked to consult regarding fractured ribs. HPI per ED: To ER with reports of multiple falls. She arrives by private vehicle from home. The falls began 3 days ago and most recently yesterday. She has a large skin tear to the anterior aspect of the left lower leg. She did call [facility] to come assess her but then decided she did not want to go to the emergency room so was not transported. She fell again yesterday. She states that her family members thought she might have had a stroke because for the past 6 months she has had some troubles with word searching. She has COPD and is oxygen dependent continues to smoke 1 pack of cigarettes per day. She took a hydrocodone just prior to arrival in the emergency room. As a result of the fall she also has some right flank pain for the past several days. Timing/Duration: 2-3 Days Severity: Moderate Associated Systoms: Denies Symptoms When I saw pt she was sitting up in chair, sleepy but easily arousable. Stated the rib pain was an 8 out of 10, had been a 3 out of 10. Worse with movement and deep breaths. Her asked about pain control. Allergies and Home Medications Allergies Coded Allergies: nitrofurantoin (Verified Allergy, Severe, RASH, 12/10/15) ITCHING AND RASH sulfamethoxazole (Verified Allergy, Severe, RASH, 12/10/15) ITCHING AND RASH trimethoprim (Verified Allergy, Severe, RASH, 12/10/15) ITCHING AND RASH azithromycin (Verified Allergy, Unknown, 08/14/14) cefixime (Verified Allergy, Unknown, 08/14/14) Home Medications Albuterol Sulfate 1 Puff Puff, 2 PUFF IH Q4H PRN for WHEEZING, (Reported) 1 PUFF = 90 MCG Alendronate Sodium 70 Mg Tablet, 70 MG PO WEEK, (Reported) Aspirin 81 Mg Tab.chew, 81 MG PO DAILY, (Reported) Calcium Carbonate 600 Mg Tablet, 1,200 MG PO DAILY, (Reported) Cetirizine HCl 10 Mg Tablet, 10 MG PO DAILY, (Reported) Cholecalciferol (Vitamin D3) 50 Mcg Capsule, 50 MCG PO DAILY, (Reported) Cholecalciferol (Vitamin D3) 50,000 Unit Capsule, 50,000 UNIT PO WEEK, (Reported) Etodolac 400 Mg Tablet, 400 MG PO DAILY PRN for joint swelling, (Reported) Formoterol Fumarate 20 Mcg/2 Ml Vial.neb, 20 MCG IH BID, (Reported) Furosemide 40 Mg Tablet, 40 MG PO DAILY, (Reported) Ipratropium [place] 0.2 Mg/1 Ml Solution, 0.2 MG IH TID PRN for SHORTNESS OF BREATH, (Reported) Potassium Chloride 10 Meq Tab.er.prt, 10 MEQ PO DAILY, (Reported) Prednisone 10 Mg Tab, 10 MG PO DAILY, (Reported) Propranolol HCl Unknown Strength Cap.sa.24h, 1 CAP PO DAILY, (Reported) Spironolactone 25 Mg Tablet, 25 MG PO DAILY, (Reported) Tamsulosin HCl 0.4 Mg Cap, 0.4 MG PO HS, (Reported) Thyroid,Pork 90 Mg Tablet, 90 MG PO DAILY, (Reported) Patient Home Medication List Home Medication List Reviewed: Yes Past Xozlcyb-Udcizf-Tawfrb Hx Patient Social History Smoking Status: Current Everyday Smoker Type Used: Cigarettes 2nd Hand Smoke Exposure: Yes Recent Hopitalizations: No Alcohol Use?: No Have you traveled recently?: No Immunizations Up To Date PED Vaccines UTD: No Date of Pneumonia Vaccine: May 13, 2013 Date of Influenza Vaccine: Aug 16, 2019 Seasonal Allergies Seasonal Allergies: Yes Surgeries History of Surgeries: Yes (cervical spine, teeth removal) Surgeries: Breast, Orthopedic, Thyroidectomy Respiratory History of Respiratory Disorde: Yes Respiratory Disorders: Pneumonia, COPD Cardiovascular History of Cardiac Disorders: No (lower extremity edema) Neurological History of Neurological Disord: Yes (TREMORS) Neurological Disorders: Headaches /Migraines Reproductive System Hx Reproductive Disorders: No Female Reproductive Disorders: Denies Genitourinary History of Genitourinary Disor: Yes (retention) Genitourinary Disorders: Bladder Infection Gastrointestinal History of Gastrointestinal Di: No Musculoskeletal History of Musculoskeletal Dis: Yes (CERVICAL SPINE SX) Musculoskeletal Disorders: Osteoporosis, Chronic Back Pain Endocrine History of Endocrine Disorders: Yes (BENIGN THYROID TUMOR) Endocrine Disorders: Hypothyroidsim HEENT History of HEENT Disorders: No Cancer History of Cancer: No Psychosocial History of Psychiatric Problem: Yes Behavioral Health Disorders: Anxiety Integumentary History of Skin or Integumenta: No Blood Transfusions History of Blood Disorders: No Family Medical History Significant Family History: Cancer Family Medial History: Bladder problems G8 SISTER FH: lung cancer 19 FATHER Thyroid disease 19 MOTHER Review of Systems-General Constitutional: malaise, weakness EENTM: No blurred vision, No double vision Respiratory: cough, dyspnea on exertion, short of breath Cardiovascular: chest pain (with deep breaths); No palpitations Gastrointestinal: No abdominal pain, No jaundice, No nausea, No vomiting Genitourinary: No dysuria, No frequency, No hematuria Musculoskeletal: joint pain, joint swelling, muscle stiffness Skin: No change in color, No change in hair/nails Psychiatric/Neurological: Anxiety, Depressed; Denies Seizure, Denies Tremors Physical Exam-General Problems Physical Exam Vital Signs Vital Signs - First Documented 04/06/21 04/06/21 04/06/21 16:08 20:24 23:40 Temp 36.9 Pulse 89 Resp 22 B/P (MAP) 101/52 (68) Pulse Ox 96 O2 Delivery Room Air O2 Flow Rate 4.00 FiO2 21 Capillary Refill : Less Than 3 Seconds General Appearance: no apparent distress, cachetic Eyes: Bilateral Eye PERRL, Bilateral Eye EOMI HEENT: pharynx normal; No scleral icterus (R), No scleral icterus (L) Neck: non-tender, supple Respiratory: no respiratory distress, no accessory muscle use, decreased breath sounds Cardiovascular: regular rate, rhythm, no murmur Gastrointestinal: non tender, soft, no organomegaly Back: CVA tenderness (R), muscle spasm, vertebral tenderness Extremities: no pedal edema, no calf tenderness Neurologic/Psychiatric: cutter operator brick II-XII nml as tested, alert, other (sleepy, prob secondary to pain meds) Skin: normal color, warm/dry Lymphatic: no adenopathy (neck, axilla or groin) Data Review Labs Laboratory Tests 04/06/21 16:26: Blood Gas Puncture Site RT RADIAL, Blood Gas Patient Temperature 98.3, Arterial Blood pH 7.46H, Arterial Blood Partial Pressure CO2 38, Arterial Blood Partial Pressure O2 78L, Arterial Blood HCO3 27, Arterial Blood Total CO2 28.0, Arterial Blood Oxygen Saturation 97, Arterial Blood Base Excess 3.1H, [place] Test YES-POS, Blood Gas Ventilator Setting NO, Blood Gas Inspired Oxygen 3 04/06/21 16:36: White Blood Count 17.5H, Red Blood Count 3.80, Hemoglobin 11.3L, Hematocrit 35, Mean Corpuscular Volume 92, Mean Corpuscular Hemoglobin 30, Mean Corpuscular Hemoglobin Concent 32, Red Cell Distribution Width 14.9H, Platelet Count 392, Mean Platelet Volume 9.8, Immature Granulocyte % (Auto) 1, Neutrophils (%) (Auto) 81H, Lymphocytes (%) (Auto) 10L, Monocytes (%) (Auto) 7, Eosinophils (%) (Auto) 1, Basophils (%) (Auto) 0, Neutrophils # (Auto) 14.1H, Lymphocytes # (Auto) 1.7, Monocytes # (Auto) 1.2H, Eosinophils # (Auto) 0.2, Basophils # (Auto) 0.1, Immature Granulocyte # (Auto) 0.2H, Neutrophils % (Manual) 84, Lymphocytes % (Manual) 10, Monocytes % (Manual) 5, Eosinophils % (Manual) 1, Poikilocytosis SLIGHT, Anisocytosis SLIGHT, Sodium Level 133L, Potassium Level 3.9, Chloride Level 86L, Carbon Dioxide Level 23, Anion Gap 24H, Blood Urea Nitrogen 39H, Creatinine 2.45H, Estimat Glomerular Filtration Rate 19, BUN/Creatinine Ratio 16, Glucose Level 66L, Calcium Level 10.6H, Corrected Calcium 11.1H, Magnesium Level 1.8, Total Bilirubin 0.4, Aspartate Amino Transf (AST/SGOT) 26, Alanine Aminotransferase (ALT/SGPT) 16, Alkaline Phosphatase 47, B-Type Natriuretic Peptide 259.1H, Total Protein 6.9, Albumin 3.4 04/06/21 17:58: Lactic Acid Level 1.72 04/06/21 18:40: Urine Color YELLOW, Urine Clarity CLEAR, Urine pH 5.5, Urine Specific [place] 1.010L, Urine Protein NEGATIVE, Urine Glucose (UA) NEGATIVE, Urine Ketones TRACEH, Urine Nitrite NEGATIVE, Urine Bilirubin NEGATIVE, Urine Urobilinogen 0.2, Urine Leukocyte Esterase NEGATIVE, Urine RBC (Auto) NEGATIVE, Urine RBC NONE, Urine WBC 0-2, Urine Squamous Epithelial Cells 10-25H, Urine Renal Epithelial Cells 5-10, Urine Crystals NONE, Urine Bacteria FEWH, Urine Casts PRESENT, Urine Hyaline Casts 5-10H, Urine Mucus NEGATIVE, Urine Culture Indicated NO 04/07/21 05:03: White Blood Count 12.5H, Red Blood Count 3.30L, Hemoglobin 9.8L, Hematocrit 31L, Mean Corpuscular Volume 95, Mean Corpuscular Hemoglobin 30, Mean Corpuscular Hemoglobin Concent 31L, Red Cell Distribution Width 14.6H, Platelet Count 322, Mean Platelet Volume 9.4, Immature Granulocyte % (Auto) 1, Neutrophils (%) (Auto) 76H, Lymphocytes (%) (Auto) 12, Monocytes (%) (Auto) 9, Eosinophils (%) (Auto) 2, Basophils (%) (Auto) 0, Neutrophils # (Auto) 9.5H, Lymphocytes # (Auto) 1.5, Monocytes # (Auto) 1.1H, Eosinophils # (Auto) 0.3, Basophils # (Auto) 0.0, Immature Granulocyte # (Auto) 0.2H, Sodium Level 136, Potassium Level 3.8, Chloride Level 93L, Carbon Dioxide Level 26, Anion Gap 17H, Blood Urea Nitrogen 34H, Creatinine 2.07H, Estimat Glomerular Filtration Rate 23, BUN/Creatinine Ratio 16, Glucose Level 61L, Calcium Level 9.2, Procalcitonin 0.19H Radiology Date of Exam:04/06/21 CT CHEST/ABDOMEN/PELVIS WO PROCEDURE: CT chest, abdomen, and pelvis without contrast. TECHNIQUE: Multiple contiguous axial images were obtained through the chest, abdomen, and pelvis without the use of intravenous contrast. Auto Exposure Controls were utilized during the CT exam to meet ALARA standards for radiation dose reduction. INDICATION: Falls, right-sided back pain There are slightly displaced fractures of the right 2nd through 8th ribs. These were not present on the prior CT chest exam of 08/14/14 and consequently most likely acute or subacute in nature. There is no sign of a pneumothorax on the right. There also appear to be healed fractures of the left 3rd through 6th ribs. Suspect these are long-standing in nature. The prominent area of atelectasis and consolidation in the right lung base seen previously is again evident although is somewhat less conspicuous than on the prior study. The left lung remains generally clear. The heart size is within normal limits. Coronary artery calcifications are evident. The aorta is not abnormally dilated. There is no obvious mediastinal or hilar adenopathy. The thyroid gland was not well visualized. The orthopedic hardware overlying the cervicothoracic junction seen previously is partially visualized on this study. There is no obvious breast mass. The suspected cyst in the medial aspect of the right lobe of the liver seen previously is again evident. The cyst does measure slightly larger and is now estimated to be approximately 4.0 cm as opposed to 3.4 cm on the prior study. The liver is otherwise unremarkable. The spleen, pancreas, adrenals, gallbladder, kidneys, aorta and inferior vena cava show no sign of an acute abnormality. The stomach is not well-distended and consequently difficult to assess. As on the prior exam, the urinary bladder is distended by urine and the uterus is small. There is no pelvic mass or free fluid collection evident. The appendix was visualized and is not abnormally thickened. There are few diverticula in the sigmoid and descending colon but there is no evidence for acute diverticulitis. The reconstructed parasagittal images show mild compression deformities of the superior endplates of L1 and L4 as well as T5 and T3. These injuries are indeterminate in age but could be acute or subacute in nature. If further evaluation is desired, then MRI would be recommended. IMPRESSION: 1. There are multiple slightly displaced fractures involving the right ribs and several slightly displaced healed fractures of the left ribs. There is no sign of a pneumothorax, however. 2. The prominent area of atelectasis and consolidation in the right lung base seen previously is not as conspicuous on this exam. There is still a fair amount of residual density present, however. 3. There is no acute cardiopulmonary abnormality identified otherwise. 4. There is no acute abnormality of the abdomen or pelvis noted. 5. There are multiple compression deformities involving the thoracic and lumbar spine. These are indeterminate in age. Additional considerations as above. Dictated by: Dictated on workstation # [id number] Dict: 04/06/21 [id number] Trans: 04/06/212020 [facility] [id number] Interpreted by: KARMA CHANCE MD Electronically signed by: KARMA CHANCE MD 04/06/212020 Assessment/Plan Assessment/Plan Assessment/Plan Multiple Rib Fx on Right Laceration skin down to Tibia - Left leg COPD Pt must take deep breaths, she hadn't been using the IS; I asked nurse to please instruct pt on the use of IS. I explained to pt that the most important thing would be deep breathing to make sure she doesn't get atelectasis or a pneumonia. She is at increased risk for this because of her COPD and chronic tobacco abuse. In addition she won't want to take deep breaths because of pain. asked about pain control; I told him this will be a fine line because she is already sleepy and we need her awake taking deep breaths. DUGLAS MONTERO DO Apr 07, 2021 12:36
--- NOTE | 2021-04-07 16:11 | History & Physical-Hospitalist ---
History of Present Illness HPI/Chief Complaint Anna Singh is a 76 year old female with PMH oxygen dependent COPD, tobacco abuse, CKD 3, hypothyroidism, who presented with falls. She began falling several days ago. EMS was called at that time but she decided she did not want to go to the hospital. She fell again and she was brought to the ER for evaluation. She is unsure why she fell. She does not know if she was lightheaded or dizzy. She does not know if she passed out. She says she got up from a chair at the kitchen table and began walking to the bedroom and fell. Her thought she had been sitting on the edge of the bed and fell asleep, then fell over. She reports rib pain with deep breaths. She is not short of breath. She has been having frequent falls lately. She has not been eating and drinking well. Source: patient Exam Limitations: no limitations Date Seen 04/07/21 Time Seen by a Provider: 09:50 Attending Physician Margie Farr MD PCP Christiano Pereira MD Referring Physician Date of Admission Apr 06, 2021 at 19:26 Home Medications & Allergies Home Medications Reviewed patient Home Medication Reconciliation performed by pharmacy medication reconciliations layout technician and/or nursing. Patients Allergies have been reviewed. Allergies Allergies Coded Allergies nitrofurantoin (Verified Allergy, Severe, RASH, 12/10/15) ITCHING AND RASH sulfamethoxazole (Verified Allergy, Severe, RASH, 12/10/15) ITCHING AND RASH trimethoprim (Verified Allergy, Severe, RASH, 12/10/15) ITCHING AND RASH azithromycin (Verified Allergy, Unknown, 08/14/14) cefixime (Verified Allergy, Unknown, 08/14/14) Past [place]-Zhipbb-Arfosv Hx Patient Social History Tobacco Use?: Yes Tobacco type used: Cigarettes Smoking Status: Current Everyday Smoker Substance use?: No Alcohol Use?: No Pt feels they are or have been: No Immunizations Up To Date Date of Influenza Vaccine: Aug 16, 2019 First/Initial COVID19 Vaccinat: 2020 Second COVID19 Vaccination Aron: 2020 PED Vaccines UTD: No Date of Pneumonia Vaccine: May 13, 2013 Seasonal Allergies Seasonal Allergies: Yes Current Status Primary Language: Israeli Preferred Spoken Language: Israeli Sensory deficits: Vision impairment Past Medical History Surgeries: Breast, Orthopedic, Thyroidectomy Pneumonia, COPD Headaches /Migraines Bladder Infection Osteoporosis, Chronic Back Pain Hypothyroidsim Anxiety Blood Disorders: No Family Medical History Reviewed Nursing Family Hx Bladder problems G8 SISTER FH: lung cancer 19 FATHER Thyroid disease 19 MOTHER Cancer Review of Systems Constitutional: weakness EENTM: no symptoms reported Respiratory: no symptoms reported Cardiovascular: chest pain Gastrointestinal: no symptoms reported Genitourinary: no symptoms reported Musculoskeletal: back pain Skin: no symptoms reported Psychiatric/Neurological: No Symptoms Reported Physical Exam Physical Exam Vital Signs Vital Signs - First Documented 04/06/21 04/06/21 04/06/21 16:08 20:24 23:40 Temp 36.9 Pulse 89 Resp 22 B/P (MAP) 101/52 (68) Pulse Ox 96 O2 Delivery Room Air O2 Flow Rate 4.00 FiO2 21 Capillary Refill : Less Than 3 Seconds Height, Weight, BMI Height: 5'3.00" Weight: 110lbs. 0.0oz. 49.695391aq; 21.40 BMI Method:Stated General Appearance: No Apparent Distress, Thin HEENT: PERRL/EOMI, Pharynx Normal Neck: Normal Inspection, Supple Respiratory: No Respiratory Distress, Wheezing Cardiovascular: Regular Rate, Rhythm, No Edema, No Murmur Gastrointestinal: Normal Bowel Sounds, Non Tender, Soft Extremity: No Pedal Edema, Other (left shultz wound) Neurologic/Psychiatric: Alert, Oriented x3, Normal Mood/Affect Skin: Other (left shultz wound) Results Results/Procedures Labs Laboratory Tests 04/06/21 16:36 04/07/21 05:03 Patient resulted labs reviewed. Imaging: Reviewed Imaging Report Assessment/Plan Admission Diagnosis Multiple bilateral rib fractures Admission Status: Inpatient Order (span 2 midnights) Reason for Inpatient Admission: ABHAY Frequent falls Assessment and Plan Ground level fall Frequent falls Rib fractures Compression fractures COPD Chronic respiratory failure with hypoxia CT showed multiple bilateral rib fractures, no pneumothorax, no consolidation Surgery consulted, appreciate assistance Incenctive spirometry Pain regimen Bowel regimen Supplemental oxygen as needed PT/OT ABHAY Cr 2.45 on arrival, improved to 2.07 today, baseline ~1 Continue IV fluids DVT prophylaxis: Lovenox Diagnosis/Problems Diagnosis/Problems (1) Multiple fractures of ribs, bilateral, initial encounter for closed fracture Status: Acute (2) ABHAY (acute kidney injury) Status: Acute (3) Tobacco abuse Status: Chronic (4) COPD (chronic obstructive pulmonary disease) Status: Chronic (5) Chronic respiratory failure with hypoxia Status: Chronic MARGIE FARR MD Apr 07, 2021 16:11
[2021-04-07] MEDS ORDERED: polyethylene glycoL POWDER 17 GM (MIRALAX) PACK PO PRN (16:15)
[2021-04-07] MEDS ORDERED: NICOTINE 14 MG (NICODERM) PATCH TD ONE (16:15)
[2021-04-07] MEDS ORDERED: ANTACID SUSP 30 ML UDC (MYLANTA) PO PRN (16:15)
[2021-04-07] MEDS ORDERED: BISACODYL 10 MG SUPP (DULCOLAX) PR PRN (16:15)
[2021-04-07] MEDS ORDERED: ACETAMINOPHEN 325 MG TABLET PO PRN (16:15)
[2021-04-07 16:27] VITALS: BP 108/55
[2021-04-07] MEDS: ENOXAPARIN 30 MG/0.3 ML (LOVENOX) SYR SC SCH ×2 (17:56→17:58)
[2021-04-07 20:04] VITALS: BP 108/53
[2021-04-07] MEDS: SENNOSIDES 8.6 MG (SENOKOT) TAB PO SCH (20:29)
[2021-04-07 23:33] VITALS: BP 92/56
[2021-04-08] MEDS: MELATONIN 3 MG TABLET PO PRN ×2 (01:06→23:52)
[2021-04-08] MEDS: LACTATED RINGERS 1,000 ML IV SCH ×3 (04:31→22:02)
[2021-04-08 04:52] VITALS: BP 94/52
[2021-04-08] MEDS: predniSONE 10 MG TAB PO SCH (06:39)
[2021-04-08] MEDS: RT-ALBUTEROL/IPRATROPIUM 3 ML (DUONEB) VIAL INH SCH ×2 (07:02→19:50)
[2021-04-08 08:00] VITALS: BP 112/54
[2021-04-08] MEDS: NICOTINE 14 MG (NICODERM) PATCH TD SCH (08:15)
[2021-04-08] MEDS: CEPHALEXIN 250 MG (KEFLEX) CAP PO SCH ×3 (08:15→20:20)
[2021-04-08] MEDS: SENNOSIDES 8.6 MG (SENOKOT) TAB PO SCH ×2 (08:15→20:19)
[2021-04-08] MEDS: DOCUSATE SODIUM 100 MG (COLACE) CAP PO SCH ×2 (08:15→20:19)
[2021-04-08] MEDS ORDERED: PHARMACY TO DOSE SQ SCH (09:00)
--- NOTE | 2021-04-08 10:22 | Progress Note - Surgery ---
Subjective Time Seen by a Provider: 09:26 Subjective/Events-last exam Pt seen and examined, sitting up in bed in NAD. Pt states it still hurts to breath, but she has not gotten any worse. Tolerating diet and using IS. Review of Systems General: Fatigue Pulmonary: Dyspnea Cardiovascular: Chest Pain (with deep breaths) Gastrointestinal: No: Nausea, Vomiting, Abdominal Pain Focused Exam Lactate Level 04/06/21 17:58: Lactic Acid Level 1.72 Objective Exam Vital Signs Date Time Temp Pulse Resp B/P (MAP) Pulse Ox O2 Delivery O2 Flow Rate FiO2 04/08/21 08:28 94 Nasal Cannula 4.00 04/08/21 08:00 36.5 63 20 112/54 (73) 95 Nasal Cannula 3.00 04/08/21 07:03 98 Nasal Cannula 4.00 04/08/21 04:52 36.6 64 18 94/52 (66) 98 Nasal Cannula 4.00 04/07/21 23:33 36.5 68 18 92/56 (68) 93 Nasal Cannula 4.00 04/07/21 20:04 35.6 71 18 108/53 (71) 93 Nasal Cannula 4.00 04/07/21 20:00 93 Nasal Cannula 4.00 04/07/21 19:56 90 Nasal Cannula 4.00 04/07/21 16:27 35.7 75 18 108/55 (72) 93 Nasal Cannula 4.00 04/07/21 11:46 36.4 82 20 101/51 (68) 93 Nasal Cannula 4.00 I & O 04/08/21 06:59 Intake Total 1840 ml Balance 1840 ml Capillary Refill : Less Than 3 Seconds General Appearance: No Apparent Distress, Thin HEENT: PERRL/EOMI, Pharynx Normal Neck: Normal Inspection, Supple Respiratory: No Respiratory Distress, Wheezing Cardiovascular: Regular Rate, Rhythm, No Edema, No Murmur Gastrointestinal: non tender, soft, no organomegaly Extremity: No Pedal Edema, Other (left shultz wound) Neurologic/Psychiatric: Alert, Oriented x3, Normal Mood/Affect Skin: Other (left shultz wound) Results Lab Microbiology 04/06/21 Blood Culture - Preliminary, Resulted No growth Assessment/Plan Assessment/Plan Assessment/Plan Multiple Rib Fx on Right Laceration skin down to Tibia - Left leg COPD Pt encouraged to use IS and ambulate. I explained to pt that her rib/chest pain would be there for 2-4 weeks at least; will try to control her pain but it won't be zero. Tibia looks good, no changes. DUGLAS MONTERO DO Apr 08, 2021 10:22
[2021-04-08 11:21] LABS: BASOPHILS % (AUTO) 0 % (0-10); EOSINOPHILS % (AUTO) 0 % (0-10); HEMATOCRIT 28 % (35-52); LYMPHOCYTES # (AUTO) 0.8 10^3/uL (1.0-4.0); LYMPHOCYTES % (AUTO) 7 % (12-44); MEAN CORPUSCULAR HEMOGLOBIN 30 pg (25-34); MEAN CORPUSCULAR HGB CONC 32 g/dL (32-36); MEAN CORPUSCULAR VOLUME 93 fL (80-99); MEAN PLATELET VOLUME 9.2 fL (9.0-12.2); MONOCYTES # (AUTO) 0.4 10^3/uL (0.0-1.0); MONOCYTES % (AUTO) 4 % (0-12); NEUTROPHILS # (AUTO) 10.4 10^3/uL (1.8-7.8); NEUTROPHILS % (AUTO) 89 % (42-75); PLATELET COUNT 323 10^3/uL (130-400); WHITE BLOOD COUNT 11.8 10^3/uL (4.3-11.0)
[2021-04-08 11:43] LABS: CALCIUM 8.6 MG/DL (8.5-10.1); CREATININE SERUM 1.13 MG/DL (0.60-1.30); POTASSIUM 3.8 MMOL/L (3.6-5.0)
[2021-04-08 12:00] VITALS: BP 104/53
--- NOTE | 2021-04-08 12:43 | Progress Note - Hospitalist ---
Subjective HPI/CC On Admission Date Seen by Provider: Apr 08, 2021 Time Seen by Provider: 10:15 Anna Singh is a 76 year old female with PMH oxygen dependent COPD, tobacco abuse, CKD 3, hypothyroidism, who presented with falls. She began falling several days ago. EMS was called at that time but she decided she did not want to go to the hospital. She fell again and she was brought to the ER for evaluation. She is unsure why she fell. She does not know if she was lightheaded or dizzy. She does not know if she passed out. She says she got up from a chair at the kitchen table and began walking to the bedroom and fell. Her thought she had been sitting on the edge of the bed and fell asleep, then fell over. She reports rib pain with deep breaths. She is not short of breath. She has been having frequent falls lately. She has not been eating and drinking well. Subjective/Events-last exam She is still having rib pain. She is using her incentive spirometer. She has now been up and moving around much. She has been refusing her Lovenox and does not want to take it despite her high risk of DVT/PE. Focused Exam Lactate Level 04/06/21 17:58: Lactic Acid Level 1.72 Objective Exam Vital Signs Vital Signs Date Time Temp Pulse Resp B/P (MAP) Pulse Ox O2 Delivery O2 Flow Rate FiO2 04/08/21 12:00 36.6 70 20 104/53 (70) 97 Nasal Cannula 3.00 04/06/21 23:40 21 Capillary Refill : Less Than 3 Seconds General Appearance: No Apparent Distress, WD/WN Respiratory: No Chest Non Tender; Lungs Clear, Normal Breath Sounds, No Respiratory Distress Cardiovascular: Regular Rate, Rhythm, No Edema, No Murmur Gastrointestinal: Normal Bowel Sounds, Non Tender, Soft Extremity: Normal Inspection, Non Tender, No Pedal Edema Neurologic/Psychiatric: Alert, Oriented x3, No Motor/Sensory Deficits, Normal Mood/Affect Skin: Normal Color, Warm/Dry Results/Procedures Lab Laboratory Tests 04/08/21 11:14 Patient resulted labs reviewed. Imaging: Reviewed Imaging Report Assessment/Plan Assessment and Plan Assess & Plan/Chief Complaint Ground level fall Frequent falls Rib fractures History of compression fractures COPD Chronic respiratory failure with hypoxia CT showed multiple bilateral rib fractures, no pneumothorax, no consolidation Surgery consulted, appreciate assistance Incenctive spirometry Pain regimen Bowel regimen Supplemental oxygen as needed PT/OT Refusing prophylactic Lovenox Encourage ambulation ABHAY Cr 2.45 on arrival, improved to 1.13 today, baseline ~1 Decrease IV fluids Normocytic anemia Hgb 9 Check iron, B12, folate DVT prophylaxis: refusing Lovenox Diagnosis/Problems Diagnosis/Problems (1) Multiple fractures of ribs, bilateral, initial encounter for closed fracture Status: Acute (2) ABHAY (acute kidney injury) Status: Acute (3) Tobacco abuse Status: Chronic (4) COPD (chronic obstructive pulmonary disease) Status: Chronic (5) Chronic respiratory failure with hypoxia Status: Chronic (6) Normocytic anemia Status: Acute (7) Medication refused Status: Acute MARGIE FARR MD Apr 08, 2021 12:43
[2021-04-08 15:37] VITALS: BP 128/66
[2021-04-08 19:38] VITALS: BP 113/67
[2021-04-09 00:10] VITALS: BP 111/71
[2021-04-09 04:41] VITALS: BP 110/67
[2021-04-09] MEDS: LACTATED RINGERS 1,000 ML IV SCH ×2 (06:43→12:59)
[2021-04-09] MEDS: predniSONE 10 MG TAB PO SCH (06:43)
[2021-04-09] MEDS: RT-ALBUTEROL/IPRATROPIUM 3 ML (DUONEB) VIAL INH SCH (07:03)
[2021-04-09] MEDS: SENNOSIDES 8.6 MG (SENOKOT) TAB PO SCH (08:05)
[2021-04-09] MEDS: DOCUSATE SODIUM 100 MG (COLACE) CAP PO SCH ×2 (08:05→08:32)
[2021-04-09] MEDS: NICOTINE 14 MG (NICODERM) PATCH TD SCH (08:15)
[2021-04-09 08:18] VITALS: BP 120/79
[2021-04-09] MEDS: CEPHALEXIN 250 MG (KEFLEX) CAP PO SCH ×2 (08:32→12:52)
--- NOTE | 2021-04-09 11:07 | Physical Therapy Daily Note ---
PT Daily Note-Current Subjective Patient agrees to PT. Mental Status Patient Orientation: Normal For Age Attachments: Oxygen (3L O2 NC), IV Transfers SCALE: Activities may be completed with or without assistive devices. 6-Zeyojcawrk-uiwgivp completes the activity by him/herself with no assistance from a helper. 5-Set-up or Clean-up Assistance-helper sets up or cleans up; patient completes activity. [place] assists only prior to or following the activity. 4-Supervision or Touching Assistance-helper provides verbal cues and/or touching/steadying and/or contact guard assistance as patient completes activity. Assistance may be provided throughout the activity or intermittently. 3-Partial/Moderate Assistance-helper does LESS THAN HALF the effort. [place] li fts, holds or supports trunk or limbs, but provides less than half the effort. 2-Substantial/Maximal Assistance-helper does MORE THAN HALF the effort. [place] lifts or holds trunk or limbs and provides more than half the effort. 3-Tycdsgpre-wkmfgp does ALL the effort. Patient does none of the effort to complete the activity. Or, the assistance of 2 or more helpers is required for the patient to complete the activity. If activity was not attempted, code reason: 7-Patient Refused. 9-Not Applicable-not attempted and the patient did not perform the activity before the current illness, exacerbation or injury. 10-Not Attempted due to Environmental Limitations-(lack of equipment, weather restraints, etc.). 88-Not Attempted due to Medical Conditions or Safety Concerns. Lying to Sitting/Side of Bed(Q: 6 Sit to Stand (QC): 4 (CGA) Chair/Wez-rz-Gmshb Xfer(QC): 4 (CGA) Gait Training Does the Patient Walk?: Yes Distance: 250' Walk 10 feet (QC): 4 (CGA) Walk 50 ft with 2 Turns(QC): 4 (CGA) Walk 150 ft (QC): 4 (CGA) Gait Assistive Device: FWW slow, extended UE's with FWW use/3 standing recovery periods due to fatigue Exercises Seated Therapy Exercises: Ankle pumps, Long arc quads Seated Reps: 15 Assessment Patient is up in recliner with needs met. Patient does fatigue with minimal activity. Increase activity as tolerated by patient. PT Predatory Animal Hunter Goals Predatory Animal Hunter Goals PT Predatory Animal Hunter Goals Time Frame: Apr 14, 2021 Roll Left & Right (QC): 6 Sit to Lying (QC): 6 Lying-Sitting on Side/Bed(QC): 6 Sit to Stand (QC): 6 Chair/Lrt-qc-Hgtok Xfer(QC): 6 Toilet Transfer (QC): 6 Does the Patient Walk: Yes Walk 10 feet (QC): 6 Walk 50ft with 2 Turns (QC): 6 Walk 150 ft (QC): 6 PT Plan Treatment/Plan Treatment Plan: Continue Plan of Care Treatment Plan: Bed Mobility, Education, Functional Activity [place], Functional Strength, Gait, Safety, Therapeutic Exercise, Transfers Treatment Duration: Apr 14, 2021 Frequency: 6 times per week Estimated Hrs Per Day: .25 hour per day Patient and/or Family Agrees t: Yes Time/GCodes Time In: 910 Time Out: 922 Total Billed Treatment Time: 12 Total Billed Treatment 1 visit FA 12 min JOHNSON FELIZ PT Apr 09, 2021 11:07
[2021-04-09 11:56] VITALS: BP 111/53
--- NOTE | 2021-04-09 12:17 | Discharge Summary ---
Diagnosis/Chief Complaint Date of Admission Apr 06, 2021 at 19:26 Date of Discharge Discharge Date: Apr 09, 2021 Admission Diagnosis Multiple bilateral rib fractures Primary Care Christiano Pereira MD Discharge Diagnosis (1) Multiple fractures of ribs, bilateral, initial encounter for closed fracture Status: Acute (2) ABHAY (acute kidney injury) Status: Acute (3) Tobacco abuse Status: Chronic (4) COPD (chronic obstructive pulmonary disease) Status: Chronic (5) Chronic respiratory failure with hypoxia Status: Chronic (6) Normocytic anemia Status: Acute (7) Medication refused Status: Acute Discharge Summary Procedures/Consulations Dr Kuo- Surgery Discharge Physical Exam Allergies: Coded Allergies: nitrofurantoin (Verified Allergy, Severe, RASH, 12/10/15) ITCHING AND RASH sulfamethoxazole (Verified Allergy, Severe, RASH, 12/10/15) ITCHING AND RASH trimethoprim (Verified Allergy, Severe, RASH, 12/10/15) ITCHING AND RASH azithromycin (Verified Allergy, Unknown, 08/14/14) cefixime (Verified Allergy, Unknown, 08/14/14) Vitals & I&Os Vital Signs Date Time Temp Pulse Resp B/P (MAP) Pulse Ox O2 Delivery O2 Flow Rate FiO2 04/09/21 11:56 35.8 69 16 111/53 (72) 98 Nasal Cannula 3.00 04/06/21 23:40 21 General Appearance: No Apparent Distress, WD/WN Respiratory: Lungs Clear, No Respiratory Distress Cardiovascular: Regular Rate, Rhythm, No Murmur Neurologic/Psychiatric: Alert, Oriented x3 Hospital Course Pt was admitted due to weakness and falls with resultant rib fractures. She also had an ABHAY which resolved with IVF. She had an uneventful hospital stay. She was seen by PT/OT and did well and was able to be discharged to IRU for continued intensive strengthening. Labs (last 24 hrs) Microbiology 04/06/21 Blood Culture - Preliminary, Resulted No growth Patient resulted labs reviewed. Imaging: Reviewed Imaging Report Discussion & Recommendations Discharge Planning: >30 minutes discharge planning Discharge Home Medications: Active Scripts Active Reported Hydrocodone-Acetamin 10-325 mg (Hydrocodone/Acetaminophen) 1 Each Tablet 1 Each PO Q6H PRN Rhinocort Allergy (Budesonide) 8.43 Ml [place].pump 2 Sprays NS DAILY Vitamin D3 (Cholecalciferol (Vitamin D3)) 1,250 Mcg Capsule 1,250 Mcg PO Friday[place]ston with Iron Tab Chew (Pedi Mv No.79/Ferrous Fumarate) 18 Mg Tab.chew 18 Mg PO DAILY Prednisone 5 Mg Tablet 10 Mg PO DAILY TAKES 2 (5MG) TABLETS Nystatin 100,000 Unit/1 Ml Oral.susp 15 Ml PO BID Citalopram HBr (Citalopram Hydrobromide) 20 Mg Tablet 20 Mg PO HS Promethazine-Codeine Solution (Promethazine HCl/Codeine) 473 Ml Syrup 5 Ml PO HS Propranolol HCl ER (Propranolol HCl) 120 Mg Cap.sa.24h 120 Mg PO DAILY Chlorhexidine Gluconate 473 Ml Mouthwash 15 Ml PO BID Proair Hfa (Albuterol Sulfate) 1 Puff Puff 2 Puff IH Q4H PRN Zyrtec (Cetirizine HCl) 10 Mg Tablet 10 Mg PO DAILY Flomax (Tamsulosin HCl) 0.4 Mg Cap 0.4 Mg PO HS Perforomist (Formoterol Fumarate) 20 Mcg/2 Ml Vial.neb 20 Mcg IH BID Ipratropium [place] 0.2 Mg/1 Ml Solution 0.2 Mg IH TID PRN Lasix (Furosemide) 40 Mg Tablet 40 Mg PO DAILY Potassium Chloride 10 Meq Tab.er.prt 10 Meq PO DAILY Vitamin D3 (Cholecalciferol (Vitamin D3)) 50 Mcg Capsule 50 Mcg PO DAILY Calcium (Calcium Carbonate) 600 Mg Tablet 1,200 Mg PO DAILY Spironolactone 25 Mg Tablet 25 Mg PO DAILY Aspirin 81 Mg Tab.chew 81 Mg PO DAILY [place] Thyroid (Thyroid,Pork) 90 Mg Tablet 90 Mg PO DAILY Instructions to patient/family Please see electronic discharge instructions given to patient. JAYCOB FRIEDMAN MD Apr 09, 2021 12:17
[2021-04-09] MEDS ORDERED: NFCHLORHGL PO (13:05)
[2021-04-09] MEDS ORDERED: CHOL500049 PO (13:05)
[2021-04-09] MEDS ORDERED: NYST1000 PO (13:05)
[2021-04-09] MEDS ORDERED: BUDE8.43 NS (13:05)
[2021-04-09] MEDS ORDERED: CITA20TA9 PO (13:05)
[2021-04-09] MEDS ORDERED: PRED5TAB PO (13:05)
[2021-04-09] MEDS ORDERED: PEDI18TA2 PO (13:05)
[2021-04-09] MEDS ORDERED: CHOL12502 PO (13:05)
[2021-04-09] MEDS ORDERED: PROM473S9 PO (13:05)
[2021-04-09] MEDS ORDERED: PROP120C3 PO (13:05)
[2021-04-09] MEDS ORDERED: HYDR-3820 PO (13:11)
--- NOTE | 2021-04-09 15:04 | Occupational Ther Daily Note ---
OT Current Status-Daily Note Subjective Pt. does not state pain level, but states that she had just "choked" on some perez before OT came into room. States that she is okay now, but needs to drink water. Declines further needed care for this issue. Appearance Pt. up in chair. Agrees to work with OT at chair level. Mental Status/Objective Patient Orientation: Person, Place ADL-Treatment Therapy Code Descriptions/Definitions Functional [place] Measure: 0=Not Assessed/NA 4=Minimal Assistance 1=Total Assistance 5=Supervision or Setup 2=Maximal Assistance 6=Modified [place] 3=Moderate Assistance 7=Complete IndependenceSCALE: Activities may be completed with or without assistive devices. 4-Zttpklgxxd-kdfhezu completes the activity by him/herself with no assistance from a helper. 5-Set-up or Clean-up Assistance-helper sets up or cleans up; patient completes activity. [place] assists only prior to or following the activity. 4-Supervision or Touching Assistance-helper provides verbal cues and/or touching/steadying and/or contact guard assistance as patient completes activity. Assistance may be provided throughout the activity or intermittently. 3-Partial/Moderate Assistance-helper does LESS THAN HALF the effort. [place] lifts, holds or supports trunk or limbs, but provides less than half the effort. 2-Substantial/Maximal Assistance-helper does MORE THAN HALF the effort. [place] lifts or holds trunk or limbs and provides more than half the effort. 6-Nfmfrmxsa-mrbdrl does ALL the effort. Patient does none of the effort to complete the activity. Or, the assistance of 2 or more helpers is required for the patient to complete the activity. If activity was not attempted, code reason: 7-Patient Refused. 9-Not Applicable-not attempted and the patient did not perform the activity before the current illness, exacerbation or injury. 10-Not Attempted due to Environmental Limitations-(lack of equipment, weather restraints, etc.). 88-Not Attempted due to Medical Conditions or Safety Concerns. Oral Hygiene (QC): 5 Other Treatment Pt. up in chair. She is upset because she states that she took a bite of her food, and it "went down the wrong pipe." Pt. has recovered, and OT observes, assesses her with liquids and more food. Pt. okay, but adamant at this time that she will not ambulate into bathroom to clean up. Pt. does agree to brush teeth, but when its suggested to ambulate into bathroom to brush teeth, pt. states, "I'm not walking right now." Pt. had ambulated earlier with PT. OT brings pt. warm washcloth. She washes face, hands and arms with increased time needed, stating that it feels good. OT sets up oral care supplies, and pt. brushes teeth at chair level. Duff hair. OT brings in fresh water and warm blanket. All needs are met and pt. states that she is comfortable. Education OT Patient Education: Correct positioning, Modified ADL techniques, Progress toward Goal/Update tx plan, Purpose of tx/functional activities, Reviewed precautions, Rehab process Teaching Recipient: Patient Teaching Methods: Demonstration Response to Teaching: Verbalize Understanding, Return Demonstration OT Care Home Goals Care Home Goals Time Frame: Apr 14, 2021 Eating (QC): 6 Oral Hygiene (QC): 6 Toileting Hygiene (QC): 4 Shower/Bathe Self (QC): 4 Upper Body Dressing (QC): 5 Lower Body Dressing (QC): 4 On/Off Footwear (QC): 4 Additional Goals: 1-Demonstrate ADL Tasks, 2-Verbalize Understanding, 3- ImproveStrength/[place] 1=Demonstrate adherence to instructed precautions during ADL tasks. 2=Patient will verbalize/demonstrate understanding of assistive devices/modifications for ADL. 3=Patient will improve strength/tolerance for activity to enable patient to perform ADL's. OT Education/Plan Problem List/Assessment Assessment: Decreased Activ Tolerance, Impaired I ADL's, Impaired Self-Care Skills Discharge Recommendations Plan/Recommendations: Continue POC Therapy Discharge Recommendati: Post Acute OT Treatment Plan/Plan of Care Treatment,Training & Education: Yes Patient would benefit from OT for education, treatment and training to promote independence in ADL's, mobility, safety and/or upper extremity function for ADL's. Plan of Care: ADL Retraining, Functional Mobility, UE Funct Exercise/Act Treatment Duration: Apr 14, 2021 Frequency: 5 times per week Estimated Hrs Per Day: .25 hour per day Agreement: Yes Rehab Potential: Fair Time/GCodes Start Time: 10:05 Stop Time: 10:40 Total Time Billed (hr/min): 35 Billed Treatment Time 1, ADL x 2 MALIHA QUEEN OT Apr 09, 2021 15:04
[2021-04-09] MEDS ORDERED: ENOXAPARIN 40 MG/0.4 ML (LOVENOX) SYR SC SCH (17:00)
--- NOTE | 2021-04-10 15:39 | Physician Query Clarification ---
PQ-Further Specificity Admission/Discharge Admission Date: Apr 06, 2021 at 19:26 Discharge Date: Apr 09, 2021 at 13:09 Dr. Navarro, The medical record reflects the following clinical scenario: History/Risk Factors: hx falls, osteoporosis, ABHAY, Clinical Findings:There are multiple slightly displaced fractures involving the right ribs and several slightly displaced healed fractures of the left ribs. Treatment: IVP Fentanyl, Hydrocodone PO,IVF Question: Can you further specify if the fractures are due to trauma or osteoporosis per the clinical indicators above? Please document a response in the Progress Notes or Discharge Summary. 1. rt rib fractures d/t trauma 2. rt rib fractures d/t osteoporosis 3. Other, with explanation of the clinical findings. 4. Clinically undetermined, no explanation for the clinical findings. PHYSICIAN RESPONSE Can you specify per above: 1 Please remember a lack of response to the above will prompt a phone page by CDI/Coding staff. In responding to this query, please exercise your independent professional judgment. The purpose of this communication is to more accurately reflect the complexity of your patients condition. The fact that a question is asked does not imply that any particular answer is desired or expected. Thank you for your timely response to this clarification. Requestors name: Sam THIS PHYSICIAN QUERY FORM IS A PERMANENT PART OF THE MEDICAL RECORD SAM GEORGES Apr 10, 2021 15:39 JAYCOB NAVARRO MD Apr 11, 2021 13:45
== END 2021-04-09 13:09 | DRG 184 ==
LOC: EDUNIT# 15:40 → ER 15:43 → 4TH 19:26
PROVIDERS: ADMIT Internal Medicine; ATTEND Internal Medicine
DX: S22.43XA Multiple fractures of ribs, bilateral, initial encounter for closed fracture (principal); N17.9 Acute kidney failure, unspecified; J96.11 Chronic respiratory failure with hypoxia; Z91.81 History of falling; S81.812A Laceration without foreign body, left lower leg, initial encounter; N18.30 Chronic kidney disease, stage 3 unspecified; J44.9 Chronic obstructive pulmonary disease, unspecified; D64.9 Anemia, unspecified; F17.210 Nicotine dependence, cigarettes, uncomplicated; M81.0 Age-related osteoporosis without current pathological fracture; E89.0 Postprocedural hypothyroidism; F41.9 Anxiety disorder, unspecified; Z99.81 Dependence on supplemental oxygen; Z87.01 Personal history of pneumonia (recurrent); Z23 Encounter for immunization; Z88.1 Allergy status to other antibiotic agents; Z88.2 Allergy status to sulfonamides; Z79.82 Long term (current) use of aspirin; Z79.52 Long term (current) use of systemic steroids; W19.XXXA Unspecified fall, initial encounter
CPT/HCPCS: 36415; 70450; 71250; 72125; 73590; 74176; 80048; 80053; 81000; 82607; 82728; 82746; 82805; 83540; 83550; 83605; 83735; 83880; 84145; 85007; 85025; 85027; 87040; 90471; 90715; 93005; 94640; 94760; 96374

== ENCOUNTER 2021-04-09 11:41 | Inpatient (IN) | payer MEDICARE ==
[~2021-04-09] VITALS: Ht 160 cm; Wt 62.7 kg
[2021-04-09] MEDS ORDERED: MELATONIN 3 MG TABLET PO PRN ×2 (12:15→15:15)
[2021-04-09] MEDS ORDERED: CALCIUM CARBONATE 500 MG (TUMS) TAB.CHEW PO PRN (12:15)
[2021-04-09] MEDS ORDERED: diphenhydrAMINE 25 MG TAB (BENADRYL) PO PRN (12:15)
[2021-04-09] MEDS ORDERED: HYDROcodone/APAP 5 MG/325 MG (LORTAB) TAB PO PRN (12:15)
[2021-04-09] MEDS ORDERED: LACTULOSE SYRUP 10GM/15ML (ENULOSE) 30ML UDC PO PRN (12:15)
[2021-04-09] MEDS ORDERED: ONDANSETRON 4 MG (ZOFRAN) ORAL DISSOLVE TAB PO PRN (12:15)
[2021-04-09] MEDS ORDERED: ACETAMINOPHEN 325 MG TABLET PO PRN ×2 (12:15→15:15)
[2021-04-09] MEDS ORDERED: guaiFENesin/CODEINE (ROBITUSSIN AC) 10ML UDC PO PRN (12:15)
[2021-04-09] MEDS ORDERED: BISACODYL 10 MG SUPP (DULCOLAX) PR PRN ×2 (12:15→15:15)
[2021-04-09] MEDS ORDERED: DOCUSATE SODIUM 100 MG (COLACE) CAP PO PRN (12:15)
[2021-04-09] MEDS ORDERED: FLEET ENEMA ADULT 1 EA BTL PR PRN (12:15)
[2021-04-09] MEDS ORDERED: ALPRAZolam 0.25 MG (XANAX) TAB PO PRN (12:15)
[2021-04-09] MEDS ORDERED: LOPERAMIDE 2 MG (IMODIUM) TABLET PO PRN (12:15)
[2021-04-09 13:00] VITALS: BP 128/78
[2021-04-09] MEDS ORDERED: BUDE8.43 NS (13:05)
[2021-04-09] MEDS ORDERED: CHOL12502 PO (13:05)
[2021-04-09] MEDS ORDERED: CHOL500049 PO (13:05)
[2021-04-09] MEDS ORDERED: NYST1000 PO (13:05)
[2021-04-09] MEDS ORDERED: PROM473S9 PO (13:05)
[2021-04-09] MEDS ORDERED: PRED5TAB PO (13:05)
[2021-04-09] MEDS ORDERED: CITA20TA9 PO (13:05)
[2021-04-09] MEDS ORDERED: PROP120C3 PO (13:05)
[2021-04-09] MEDS ORDERED: NFCHLORHGL PO (13:05)
[2021-04-09] MEDS ORDERED: PEDI18TA2 PO (13:05)
[2021-04-09] MEDS ORDERED: HYDR-3820 PO (13:11)
--- NOTE | 2021-04-09 15:01 | Occupational Therapy Eval ---
OT Evaluation-General/PLF Medical Diagnosis Admission Date Apr 09, 2021 at 13:00 Medical Diagnosis: Debility Onset Date: Apr 06, 2021 Therapy Diagnosis Therapy Diagnosis: weakness, decreased ADL Status Height/Weight Height (Feet): 5 Height (Inches): 3.00 Weight (Pounds): 110 Weight (Ounces): 0.0 Precautions Precautions/Isolations: Fall Prevention, Standard Precautions Referral Physician: John Referral Reason: Evaluation/Treatment Medical History Pertinent Medical History: COPD (O2 dependent), Smoking Additional Medical History cervical spine surgery, tremors, benign thyroid tumor, hypothyroidism Current History ED due to multiple fall. Imaging revealed slightly displaced fractures of the right 2nd through 8th ribs. Transfer to ARU 04/09/21 for continued medication management and skilled therapy. Social History Home: Single Level Current Living Status: Spouse Entry Into Home: Stairs With Railing Steps Into Home: 4 ADL-Prior Level of Function SCALE: Activities may be completed with or without assistive devices. 8-Fpdluoacfs-mpauhfw completes the activity by him/herself with no assistance from a helper. 5-Set-up or Clean-up Assistance-helper sets up or cleans up; patient completes activity. [place] assists only prior to or following the activity. 4-Supervision or Touching Assistance-helper provides verbal cues and/or touching/steadying and/or contact guard assistance as patient completes activity. Assistance may be provided throughout the activity or intermittently. 3-Partial/Moderate Assistance-helper does LESS THAN HALF the effort. [place] lifts, holds or supports trunk or limbs, but provides less than half the effort. 2-Substantial/Maximal Assistance-helper does MORE THAN HALF the effort. [place] lifts or holds trunk or limbs and provides more than half the effort. 3-Zrvmdcxbq-xrffsk does ALL the effort. Patient does none of the effort to complete the activity. Or, the assistance of 2 or more helpers is required for the patient to complete the activity. If activity was not attempted, code reason: 7-Patient Refused. 9-Not Applicable-not attempted and the patient did not perform the activity before the current illness, exacerbation or injury. 10-Not Attempted due to Environmental Limitations-(lack of equipment, weather restraints, etc.). 88-Not Attempted due to Medical Conditions or Safety Concerns. ADL PLOF Comments Pt indicates her assists her with walking around the house, she owns a 4WW, but only uses on occasion. She is able to bathe herself, and toilet herself, but has assistance walking into bathroom. Initially she indicates she is able to dress independently, but further discussion revealed she has assistance with threading BLEs into pants, and assist with footwear. She has a tub/shower with a shower chair. Self Care: Needed Some Help Functional Cognition: Independent DME/Equipment: Bath Chair, Tub/Shower DME/Equipment Comments 4WW OT Current Status Subjective Pt agreeable to OT evaluation and OT/PT cotreat. Rates pain 8/10 in R ribs. Mental Status/Objective Patient Orientation: Person, Place, Time, Situation Attachments: Oxygen (3L) Current Glasses/Contacts: Yes Hearing Aids: No Dentures/Partials: No Hand Dominance: Right Upper Extremity ROM RUE shoulder flexion to approx 110 degrees, limited by pain LUE shoulder flexion to approx 140 degrees, WFL. Upper Extremity Coordination WFL Upper Extremity Sensation WFL Upper Extremity Strength RUE not tested due to pain, LUE grossly 3+/5 ADL-Treatment Eating (QC): 5 (set up assist) Oral Hygiene (QC): 5 (based on clincial judgement, set up assist) Shower/Bathe Self (QC): 4 (CGA, pt able to wash/dry all parts with increased time.) Upper Body Dressing (QC): 5 (set up assist with truss puller helper shirt.) Lower Body Dressing (QC): 3 (CGA in stand for pant hike, pt able to thread BLEs into underwear, assist with threading LLE into pants.) On/Off Footwear (QC): 3 (Pt able to doff bilateral gripper socks, assist to don.) Toileting Hygiene (QC): 4 (CGA, pt able to complete hygiene and pant hike.) Pt required increased time with all ADLs due to pain and slow movements. Other Treatments OT evaluation complete, then OT/PT cotreat due to skill of 2 clinicals required which a rehab spec could not perform in order to decrease fall risk, coordinate UEs/LEs, and due to pt's limitations in strength, pain, mobility, and activity tolerance. OT focused on ADLs, UE placement, cues for sequencing and safety, PT focused on LE placement, gross overall movement, and transfers/mobility. Pt used FWW to perform functional mobility in halls, states legs are fatiguing requiring seated rest break. Pt performed functional car transfers, then requests to use toilet. Pt taken to her room, she completes toileting, then used FWW to go to therapy gym, 1 seated rest break. Pt performed functional transfer for 1 step and uneven surface. Pt sat on edge of mat, encouraged to complete bed transfer, but pt declines at this time stating she would like her pain medicine to kick in. Pt returned to her room, completed sponge bath and dressing at [facility]. Pt states need to toilet again, uses FWW to go into bathroom, CGA. Pt completed toileting, then transferred to bed. Post tx, pt laying in bed, call light in reach and all needs met. Patient performs bed mobility and supine <-> sit with independence, sit <-> stand min assist, transfers CGA, toilet transfer min assist Education OT Patient Education: Correct positioning, Modified ADL techniques, Progress toward Goal/Update tx plan, Purpose of tx/functional activities, Rehab process Teaching Recipient: Patient Teaching Methods: Discussion Response to Teaching: Verbalize Understanding OT Short Term Goals Short Term Goals Time Frame: Apr 18, 2021 Shower/bathe self: 5 Upper body dressin Lower body dressin OT Laborer Concrete Paving Goals Snf Goals Time Frame: May 04, 2021 Eating (QC): 6 Oral Hygiene (QC): 6 Toileting Hygiene (QC): 6 Shower/Bathe Self (QC): 6 Upper Body Dressing (QC): 6 Lower Body Dressing (QC): 6 On/Off Footwear (QC): 6 Additional Goals: 1-Demonstrate ADL Tasks, 2-Verbalize Understanding, 3- ImproveStrength/[place] 1=Demonstrate adherence to instructed precautions during ADL tasks. 2=Patient will verbalize/demonstrate understanding of assistive devices/modifications for ADL. 3=Patient will improve strength/tolerance for activity to enable patient to perform ADL's. OT Education/Plan Problem List/Assessment Assessment: Decreased Activ Tolerance, Decreased UE Strength, Impaired Funct Balance, Impaired I ADL's, Impaired Self-Care Skills, Restricted Funct UE ROM Discharge Recommendations Plan/Recommendations: Continue POC Treatment Plan/Plan of Care Patient would benefit from OT for education, treatment and training to promote independence in ADL's, mobility, safety and/or upper extremity function for ADL's. Plan of Care: ADL Retraining, Functional Mobility, Group Exercise/Act as Ind, UE Funct Exercise/Act Treatment Duration: May 04, 2021 Frequency: At least 5 of 7 days/Wk (IRF) Estimated Hrs Per Day: 1.5 hours per day Agreement: Yes Rehab Potential: Good Time/GCodes Start Time: 13:10 Stop Time: 14:40 Total Time Billed (hr/min): 90 Billed Treatment Time 6305-9515 OT evaluation (10'), 5748-1157 OT/PT cotreat (80') 1, EVM (10'), ADL 2 (35), FA 3 (45) SRINIVASAN LANGE OT Apr 09, 2021 15:01
[2021-04-09] MEDS ORDERED: ONDANSETRON 4 MG/2 ML (SDV) Z0FRAN IV PRN (15:15)
[2021-04-09] MEDS ORDERED: fentaNYL INJ 100 MCG/2 ML AMP IV PRN (15:15)
[2021-04-09] MEDS ORDERED: polyethylene glycoL POWDER 17 GM (MIRALAX) PACK PO PRN (15:15)
[2021-04-09] MEDS ORDERED: ANTACID SUSP 30 ML UDC (MYLANTA) PO PRN (15:15)
[2021-04-09] MEDS ORDERED: ENOXAPARIN 40 MG/0.4 ML (LOVENOX) SYR SC SCH (15:15)
--- NOTE | 2021-04-09 15:15 | Physical Therapy Evaluation ---
PT Evaluation-General Medical Diagnosis Admission Date Apr 09, 2021 at 13:00 Medical Diagnosis: Debility Onset Date: Apr 06, 2021 Therapy Diagnosis Therapy Diagnosis: impaired mobility, strength, endurance Height/Weight Height (Feet): 5 Height (Inches): 3.00 Weight (Pounds): 110 Weight (Ounces): 0.0 Precautions Precautions/Isolations: Fall Prevention, Standard Precautions Referral Physician: Hali Lopez DO Reason for Referral: Evaluation/Treatment Medical History Pertinent Medical History: COPD (O2 dependent), Smoking Additional Medical History O2 dependent Current History ER secondary to multiple falls, has rib fx's Reviewed History: Yes Social History Home: Single Level (but has a basement) Current Living Status: Spouse Entry Into Home: Stairs With Railing PT Steps Into Home: 4 Prior Prior Level of Function SCALE: Activities may be completed with or without assistive devices. 5-Cunmorrkue-uqozyyj completes the activity by him/herself with no assistance from a helper. 5-Set-up or Clean-up Assistance-helper sets up or cleans up; patient completes activity. [place] assists only prior to or following the activity. 4-Supervision or Touching Assistance-helper provides verbal cues and/or touching/steadying and/or contact guard assistance as patient completes activity. Assistance may be provided throughout the activity or intermittently. 3-Partial/Moderate Assistance-helper does LESS THAN HALF the effort. [place] lifts, holds or supports trunk or limbs, but provides less than half the effort. 2-Substantial/Maximal Assistance-helper does MORE THAN HALF the effort. [place] lifts or holds trunk or limbs and provides more than half the effort. 8-Ixiqdjbtd-xvpcai does ALL the effort. Patient does none of the effort to complete the activity. Or, the assistance of 2 or more helpers is required for the patient to complete the activity. If activity was not attempted, code reason: 7-Patient Refused. 9-Not Applicable-not attempted and the patient did not perform the activity before the current illness, exacerbation or injury. 10-Not Attempted due to Environmental Limitations-(lack of equipment, weather restraints, etc.). 88-Not Attempted due to Medical Conditions or Safety Concerns. Bed Mobility: 6 Transfers (B,C,W/C): 6 Gait: 6 Stairs: 6 PT Evaluation-Current Subjective Patient in recliner pre tx, agrees to PT, has 8/10 pain in right flank/rib area, nurse notified. Will be co-treating with OT for part of tx due to poor patient mobility, strength, endurance, severe pain with activity, coordinate UE and LE with activity, safety and reduce risk of falls. Pt/Family Goals to be independent at home Objective Patient Orientation: Person, Place, Situation ROM/Strength ROM Lower Extremities WNL Strength Lower Extremities LLE (hip flexion 3+/5, knee flexion 4-/5, knee extension 4-/5, dorsiflexion 4/5), RLE (hip flexion 3+/5, knee flexion 4-/5, knee extension 4-/5, dorsiflexion 4/5) Sensory Vision: Wears Glasses Hearing: Functional Hand Dominance: Right Sensation Right Lower Extremit: Intact Sensation Left Lower Extremity: Intact Transfers Roll Left & Right (QC): 6 Sit to Lying (QC): 6 Lying to Sitting/Side of Bed(Q: 6 Sit to Stand (QC): 3 Chair/Opt-gs-Wznsv Xfer(QC): 4 Toilet Transfer (QC): 3 Car Transfer (QC): 4 Patient performs bed mobility and supine <-> sit with independence, sit <-> stand min assist, transfers CGA, toilet transfer min assist, car transfer CGA. Patient has some difficulty with sit <-> stand due to leg weakness and rib pain. Gait Does the Patient Walk?: Yes Mode of Locomotion: Walk Anticipated Mode of Locomotion: Walk Walk 10 feet (QC): 4 Walk 50 ft with 2 Turns(QC): 4 Walk 150 ft (QC): 88 Walking 10ft/uneven surface-QC: 4 Distance: 100'x9 Gait Assistive Device: FWW Comments/Gait Description Patient can ambulate 100' with a rolling walker with CGA (including 50' with at least 2 turns of 90 degrees and 10' over an uneven surface). Patient ambulates slowly, has pain, cannot go further due to pain and fatigue. Wheelchair Training Does the Pt Use a Wheelchair?: No Wheel 50 ft with 2 turns (QC): 9 Wheel 150 ft (QC): 9 Stairs #of Steps: 1 1 Step (curb) (QC): 4 4 Steps (QC): 88 12 Steps (QC): 88 Patient can go up and down 1 step using a rolling walker with CGA, cues for foot placement. Balance Sitting Static: Normal Sitting Dynamic: Normal Standing Static: Fair Standing Dynamic: Fair Picking up an Object (QC): 88 Treatment PT performed bed mobility and transfers, ambulation, balance and positioning during toileting and bathing and dressing, OT performed bathing and dressing and toileting and UE positioning and safety during activity. Assessment/Needs Patient in bed post tx with nurse call, phone, tray, all needs met. Patient has impaired mobility, strength, endurance. Patient mostly needs assist to stand from a sitting position. Rehab Potential: Fair PT Short Term Goals Short Term Goals Time Frame: Apr 16, 2021 Roll Left & Right: 6 Sit to lyin Lying to sitting on side of be: 6 Sit to stand: 4 Chair/ztt-ht-vnfug transfer: 4 Walk 10 feet: 4 Walk 50 feet with two turns: 4 Walk 150 feet: 4 PT Injection Molder Goals Usp Goals PT Injection Molder Goals Time Frame: Apr 30, 2021 Roll Left & Right (QC): 6 Sit to Lying (QC): 6 Lying-Sitting on Side/Bed(QC): 6 Sit to Stand (QC): 5 Chair/Qdw-ej-Qbauq Xfer(QC): 5 Toilet Transfer (QC): 5 Car Transfer (QC): 5 Does the Patient Walk: Yes Walk 10 feet (QC): 5 Walk 50ft with 2 Turns (QC): 5 Walk 150 ft (QC): 5 Walking 10ft on Uneven Surface: 5 1 Step (curb) (QC): 5 4 Steps (QC): 5 12 Steps (QC): 88 Picking up an Object (QC): 88 Wheel 50 feet with 2 turns (QC: 9 Wheel 150 feet: 9 PT Plan Problem List Problem List: Activity Tolerance, Functional Strength, Safety, Balance, Gait, Transfer, Bed Mobility, ROM Treatment/Plan Treatment Plan: Continue Plan of Care Treatment Plan: Bed Mobility, Education, Functional Activity [place], Functional Strength, Gait, Safety, Therapeutic Exercise, Transfers Treatment Duration: Apr 30, 2021 Frequency: At least 5 of 7 days/Wk (IRF) Estimated Hrs Per Day: 1.5 hours per day Patient and/or Family Agrees t: Yes Safety Risks/Education Patient Education: Gait Training, Transfer Techniques, Steps, Correct Positioning, Safety Issues Teaching Recipient: Patient Teaching Methods: Demonstration, Discussion Response to Teaching: Reinforcement Needed Discharge Recommendations Plan Patient will perform bed mobility and transfer training, balance and endurance training ,functional strengthening, stair training, gait training, and education, to improve functional mobility and independence at home. Therapy Discharge Recommendati: Scheduled Assistance, Home & Family, Post Acute PT Time/GCodes Time In: 1300 Time Out: 1440 Total Billed Treatment Time: 90 Total Billed Treatment 1 visit EVM 10' FA 80' PT eval from [id number], OT eval from [id number], co-treat from [id number] SONG LEACH PT Apr 09, 2021 15:15
[2021-04-09] MEDS ORDERED: NON-FORMULARY MEDICATION 1 EA EA (Cholecalciferol (Vitamin D3) (Vitamin D3) 1,250 MCG) PO SCH (15:45)
[2021-04-09] MEDS ORDERED: RT-IPRATROPIUM (ATROVENT) 0.5MG/2.5ML AMP IH PRN (15:45)
[2021-04-09] MEDS ORDERED: ENOXAPARIN 30 MG/0.3 ML (LOVENOX) SYR SC SCH (17:00)
[2021-04-09] MEDS: ZINC OXIDE 16% OINT (BUTT PASTE) 57 GM TUBE TOP SCH (17:38)
--- NOTE | 2021-04-09 17:57 | PM&R Post Admission Assessment ---
PM&R HP Date of Visit: Apr 09, 2021 Time of Visit: 18:15 History of Present Illness Chief complaint: Debility with rib fractures from multiple falls History of present illness: This is a 76-year-old white female clinic patient Dr. Pereira who is an oxygen and prednisone dependent COPD patient continues to smoke who presents to inpatient rehab after being admitted for rib fractures and severe pain with exacerbation of COPD. Patient reports pain is an issue so pain medication. She generally does not use any type of assistive device to ambulate she has had multiple falls and x-ray showed multiple compression fractures also. She lives with her at home. 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 She seems to be very chronically debilitated and requires a lot more help at home and originally reported. She reports that her bowels are now moving even though she is taking pain medication. Past Hwiwbhm-Hmrrtm-Ydkqgh Hx Past Med/Social Hx: Reviewed Nursing Past Med/Soc Hx, Reviewed and Corrections made Patient Social History Marrital Status: Employed/Student: retired Alcohol Use: Denies Use Smoking Status: Current Someday Smoker Type Used: Cigarettes 2nd Hand Smoke Exposure: Yes Recent Hopitalizations: No Immunizations Up To Date Pediatric: No Date of Pneumonia Vaccine: May 13, 2013 Date of Influenza Vaccine: Aug 16, 2019 Seasonal Allergies Seasonal Allergies: Yes Past Medical History Surgeries: Breast, Orthopedic, Thyroidectomy Neurological: Headaches /Migraines Reproductive: No Female Reproductive Disorders: Denies Genitourinary: Bladder Infection Musculoskeletal: Osteoporosis, Chronic Back Pain Endocrine: Hypothyroidsim Psychosocial: Anxiety History of Blood Disorders: No Family History Bladder problems G8 SISTER FH: lung cancer 19 FATHER Thyroid disease 19 MOTHER Cancer Prior Level of Function Bed Mobility: 6 Transfers: 6 Gait: 6 Stairs: 6 Self Care: Needed Some Help Functional Cognition: Independent Current Level of Fuctioning Roll Left to Right: 6 Sit to Lyin Lying to Sitting/Side of Bed: 6 Sit to Stand: 3 Chair/Gpx-te-Nxamp Xfer: 4 Car Transfer: 4 Does the Patient Walk: Yes Mode of Locomotion: Walk Anticipated Mode of Locomotion: Walk Walk 10 feet: 4 Walk 50 ft with 2 Turns: 4 Walk 150 ft: 88 Walking 10ft on uneven surface: 4 Gait Assistive Device: FWW Does the Pt Use a Wheelchair: No Wheel 50 ft with 2 turns: 9 Wheel 150 ft: 9 #of Steps: 1 1 Step (curb): 4 4 Steps: 88 12 Steps: 88 Picking up an Object: 88 Eatin (set up assist) Oral Hygiene: 5 (based on clincial judgement, set up assist) Shower/Bathe Self: 4 (CGA, pt able to wash/dry all parts with increased time.) Upper Body Dressin (set up assist with pipe puller shirt.) Lower Body Dressin (CGA in stand for pant hike, pt able to thread BLEs into underwear, assist with threading LLE into pants.) On/Off Footwear: 3 (Pt able to doff bilateral gripper socks, assist to don.) Toileting Hygiene: 4 (CGA, pt able to complete hygiene and pant hike.) PM&R Allergy/Meds/Data Review Allergies Coded Allergies: nitrofurantoin (Verified Allergy, Severe, RASH, 12/10/15) ITCHING AND RASH sulfamethoxazole (Verified Allergy, Severe, RASH, 12/10/15) ITCHING AND RASH trimethoprim (Verified Allergy, Severe, RASH, 12/10/15) ITCHING AND RASH azithromycin (Verified Allergy, Unknown, 08/14/14) cefixime (Verified Allergy, Unknown, 08/14/14) Home Medications Scheduled Aspirin (Aspirin), 81 MG PO DAILY, (Reported) Budesonide (Rhinocort Allergy), 2 SPRAYS NS DAILY, (Reported) Calcium Carbonate (Calcium), 1,200 MG PO DAILY, (Reported) Cetirizine HCl (Zyrtec), 10 MG PO DAILY, (Reported) Chlorhexidine Gluconate (Chlorhexidine Gluconate), 15 ML PO BID, (Reported) Cholecalciferol (Vitamin D3) (Vitamin D3), 50 MCG PO DAILY, (Reported) Cholecalciferol (Vitamin D3) (Vitamin D3), 1,250 MCG PO FRIDAY, (Reported) Citalopram Hydrobromide (Citalopram HBr), 20 MG PO HS, (Reported) Formoterol Fumarate (Perforomist), 20 MCG IH BID, (Reported) Furosemide (Lasix), 40 MG PO DAILY, (Reported) Nystatin (Nystatin), 15 ML PO BID, (Reported) Pedi Mv No.79/Ferrous Fumarate (Flintstones with Iron Tab Chew), 18 MG PO DAILY, (Reported) Potassium Chloride (Potassium Chloride), 10 MEQ PO DAILY, (Reported) Prednisone (Prednisone), 10 MG PO DAILY, (Reported) Promethazine HCl/Codeine (Promethazine-Codeine Solution), 5 ML PO HS, (Reported) Propranolol HCl (Propranolol HCl ER), 120 MG PO DAILY, (Reported) Spironolactone (Spironolactone), 25 MG PO DAILY, (Reported) Tamsulosin HCl (Flomax), 0.4 MG PO HS, (Reported) Thyroid,Pork ([place] Thyroid), 90 MG PO DAILY, (Reported) Scheduled PRN Albuterol Sulfate (Proair Hfa), 2 PUFF IH Q4H PRN for WHEEZING, (Reported) Hydrocodone/Acetaminophen (Hydrocodone-Acetamin 10-325 mg), 1 EACH PO Q6H PRN for PAIN-MODERATE (5-7), (Reported) Ipratropium [place] (Ipratropium [place]), 0.2 MG IH TID PRN for SHORTNESS OF BREATH, (Reported) Discontinued Medications Alendronate Sodium (Alendronate Sodium), 70 MG PO WEEK, (Reported) Discontinued Reason: No Longer Taking Cholecalciferol (Vitamin D3) (Vitamin D3), 50,000 UNIT PO WEEK, (Reported) Discontinued Reason: Prescription changed Cholecalciferol (Vitamin D3) (Weekly-D), 1,250 MCG PO FRIDAY, (Reported) Discontinued Reason: Duplicate Order Etodolac (Etodolac), 400 MG PO DAILY PRN for joint swelling, (Reported) Discontinued Reason: No Longer Taking Prednisone (Prednisone), 10 MG PO DAILY, (Reported) Discontinued Reason: Duplicate Order Propranolol HCl (Propranolol HCl ER), 1 CAP PO DAILY, (Reported) Discontinued Reason: Duplicate Order Current Medications Current Medications Reviewed Review of Systems Constitutional: see HPI EENTM: no symptoms reported Respiratory: cough, dyspnea on exertion, short of breath Cardiovascular: no symptoms reported Gastrointestinal: no symptoms reported Genitourinary: no symptoms reported Musculoskeletal: back pain, joint pain, muscle pain, muscle stiffness, muscle cramps Skin: no symptoms reported Psychiatric/Neurological: Anxiety, Depressed All Other Systems Reviewed Negative Unless Noted: Yes Physical Exam Physical Exam Vital Signs Vital Signs - First Documented 04/09/21 16:53 Pulse Ox 96 O2 Delivery Nasal Cannula O2 Flow Rate 3.00 Capillary Refill : Height, Weight, BMI Height: 5'3.00" Weight: 110lbs. 0.0oz. [id number]; 21.40 BMI Method:Stated General Appearance: No Apparent Distress, WD/WN, Anxious, Chronically ill Eyes: Bilateral Eye Normal Inspection, Bilateral Eye PERRL HEENT: PERRL/EOMI, Normal ENT Inspection, Pharynx Normal Neck: Full Range of Motion, Normal Inspection, Non Tender, Supple, Carotid Bruit Respiratory: Chest Non Tender, No Respiratory Distress, Accessory Muscle Use (Subtle during conversation), Decreased Breath Sounds, Wheezing Cardiovascular: Regular Rate, Rhythm, No Edema, No Gallop, No JVD, No Murmur, Normal Peripheral Pulses Gastrointestinal: Normal Bowel Sounds, No Organomegaly, No Pulsatile Mass, Non Tender, Soft Back: Normal Inspection, No CVA Tenderness, No Vertebral Tenderness Extremity: Normal Capillary Refill, Normal Inspection, Normal Range of Motion, Non Tender, No Calf Tenderness, No Pedal Edema Neurologic/Psychiatric: Alert, Oriented x3, No Motor/Sensory Deficits, Normal Mood/Affect, Abnormal Gait, Depressed Affect, Motor Weakness (Generalized all extremities) Skin: Normal Color, Warm/Dry Lymphatic: No Adenopathy PM&R Medical Assessment & Plan REHAB/MEDICAL ASSESSMENT AND PLAN: REHAB IMPAIRMENT GROUP: Debility with rib fractures and falls ETIOLOGIC DIAGNOSIS: Debility with rib fractures and falls The comorbidities that impact the patients function and/or functional outcome by: Current smoker, severe COPD, oxygen dependency, osteoporosis, steroid dependent REHAB PLAN: The patient is being admitted to our comprehensive inpatient rehabilitation f acility and can tolerate the intensity of service consisting of at least: 180 minutes of therapy a day, 5 out of 7 days a week Rehab treatment will consist of: PT and OT will focus on increased ambulation with assistive device and fall risk prevention in order to return back home to independent living The patient/family has a good understanding of our discharge process and will benefit from an interdisciplinary inpatient rehabilitation program. The patient has potential to make improvement and is in need of at least two of the following multidisciplinary therapies including but not limited to physical, oc cupational, speech, and prosthetics and orthotics. Additionally the patient will need services from respiratory, nutritional services, wound care, psychology, etc. (Customize this to each patient). Given the patients complex condition and risk of further medical complications, rehabilitation services cannot be safely or effectively provided at a lower level of care such as a [facility] nursing facility. BARRIERS TO DISCHARGE: Severe debility ESTIMATED LOS: 10 days DISPOSITION: Home with home health RELEVANT CHANGES SINCE PREADMISSION SCREENING: I have compared the patients medical and functional status at the time of the preadmission screening and there are: no changes PROGNOSIS: Guarded REHABILITATION GOALS: 1. PT and OT will focus on increased ambulation with assistive device and fall risk prevention in order to return back home to independent living All the above goals were reviewed with the patient and he/she is in agreement. By signing this document, I acknowledge that I have personally performed a full physical examination on this patient within 24 hours of admission to this inpatient rehabilitation facility and have determined the patient to be able to tolerate the above course of treatment at an intensive level for a reasonable period of time. I will be completing a detailed individualized Plan of Care for this patient by day #4 of the patients stay based upon the Preadmission Screen, the Post-Admission Evaluation, and the therapy evaluations. Admission Dx/Comorbidities: (1) Debility ICD Codes: R53.81 - Other malaise (2) Immobility ICD Codes: Z74.09 - Other reduced mobility (3) Chronic respiratory failure with hypoxia Status: Chronic ICD Codes: J96.11 - Chronic respiratory failure with hypoxia (4) Medication refused Status: Acute ICD Codes: Z53.20 - Procedure and treatment not carried out because of p atient's decision for unspecified reasons (5) Normocytic anemia Status: Acute ICD Codes: D64.9 - Anemia, unspecified (6) Multiple fractures of ribs, bilateral, initial encounter for closed fracture Status: Acute ICD Codes: S22.43XA - Multiple fractures of ribs, bilateral, initial encounter for closed fracture (7) ABHAY (acute kidney injury) Status: Acute ICD Codes: N17.9 - Acute kidney failure, unspecified (8) Tobacco abuse Status: Chronic ICD Codes: Z72.0 - Tobacco use (9) COPD (chronic obstructive pulmonary disease) Status: Chronic ICD Codes: J44.9 - Chronic obstructive pulmonary disease, unspecified (10) Frequent falls Status: Acute ICD Codes: R29.6 - Repeated falls (11) Dehydration Status: Acute ICD Codes: E86.0 - Dehydration Assessment/Plan Assessment and Plan Assess & Plan/Chief Complaint Assessment: Acute on chronic debility Multiple falls Severe right rib fractures multiple Acute exacerbation of COPD with bronchitis Active wheezing requiring IV steroids and oral antibiotics Current smoker Severe COPD Prednisone dependent Osteoporosis Hypothyroidism Chronic kidney disease Refusing Lovenox for DVT prophylaxis Plan: IV steroids Inpatient rehab protocol Nebulizer treatments Oxygen Refusing DVT prophylaxis CASTRO MOLINA DO Apr 09, 2021 17:57
[2021-04-09] MEDS: LIDOCAINE 4% (SALONPAS) PATCH TOP SCH (19:45)
[2021-04-09] MEDS ORDERED: methylPREDNISolone 40 MG/ML (Solu-MEDROL) VIAL ONE (19:49)
[2021-04-09] MEDS: polyethylene glycoL POWDER 17 GM (MIRALAX) PACK PO SCH (19:51)
[2021-04-09] MEDS: RT-ALBUTEROL/IPRATROPIUM 3 ML (DUONEB) VIAL INH SCH (20:27)
[2021-04-09] MEDS: methylPREDNISolone 40 MG/ML (Solu-MEDROL) VIAL IV SCH (20:36)
[2021-04-09] MEDS: NYSTATIN ORAL SUSP 5 ML UDC PO SCH (20:36)
[2021-04-09] MEDS: CHLORHEXIDINE 0.12% SOLN 15 ML (PERIDEX) UDC PO SCH (20:36)
[2021-04-09] MEDS: PROMETHAZINE/ CODEINE SYRUP 5 ML UDC PO SCH (20:36)
[2021-04-09] MEDS: SENNOSIDES 8.6 MG (SENOKOT) TAB PO SCH (20:37)
[2021-04-09] MEDS: CEFDINIR 300 MG (OMNICEF) CAP PO SCH (20:37)
[2021-04-09] MEDS: DOCUSATE SODIUM 100 MG (COLACE) CAP PO SCH (20:38)
[2021-04-09] MEDS: TAMSULOSIN 0.4 MG (FLOMAX) CAP PO SCH (20:38)
[2021-04-09] MEDS: LIDOCAINE PATCH REMOVAL TP SCH (20:41)
[2021-04-09 20:45] VITALS: BP 140/61
[2021-04-09] MEDS ORDERED: NON-FORMULARY MEDICATION 1 EA EA (Formoterol Fumarate (Perforomist) 20 MCG) IH SCH (21:00)
[2021-04-09] MEDS ORDERED: CEPHALEXIN 250 MG (KEFLEX) CAP PO SCH (21:00)
[2021-04-09] MEDS ORDERED: DOCUSATE SODIUM 100 MG (COLACE) CAP PO SCH (21:00)
[2021-04-09] MEDS ORDERED: SENNA W/DOCUSATE (SENOKOT S) TABLET PO SCH (21:00)
[2021-04-10 05:14] LABS: BASOPHILS % (AUTO) 0 % (0-10); EOSINOPHILS % (AUTO) 0 % (0-10); HEMATOCRIT 30 % (35-52); HEMOGLOBIN 9.2 g/dL (11.5-16.0); LYMPHOCYTES # (AUTO) 0.8 10^3/uL (1.0-4.0); LYMPHOCYTES % (AUTO) 10 % (12-44); MEAN CORPUSCULAR HEMOGLOBIN 30 pg (25-34); MEAN CORPUSCULAR HGB CONC 31 g/dL (32-36); MEAN CORPUSCULAR VOLUME 96 fL (80-99); MEAN PLATELET VOLUME 8.9 fL (9.0-12.2); MONOCYTES # (AUTO) 0.2 10^3/uL (0.0-1.0); MONOCYTES % (AUTO) 2 % (0-12); NEUTROPHILS # (AUTO) 6.4 10^3/uL (1.8-7.8); NEUTROPHILS % (AUTO) 85 % (42-75); PLATELET COUNT 287 10^3/uL (130-400); WHITE BLOOD COUNT 7.5 10^3/uL (4.3-11.0)
[2021-04-10 05:29] LABS: ALBUMIN 2.7 GM/DL (3.2-4.5)
[2021-04-10 05:30] LABS: POTASSIUM 4.2 MMOL/L (3.6-5.0)
[2021-04-10 05:31] LABS: CALCIUM 8.5 MG/DL (8.5-10.1)
[2021-04-10 05:32] LABS: TOTAL PROTEIN 5.1 GM/DL (6.4-8.2)
[2021-04-10 05:34] LABS: BILIRUBIN,TOTAL 0.2 MG/DL (0.1-1.0)
[2021-04-10 05:35] LABS: CREATININE SERUM 0.95 MG/DL (0.60-1.30)
[2021-04-10] MEDS: THYROID (ARMOUR) 60 MG TABLET PO SCH (06:26)
[2021-04-10] MEDS: MULTIVITAMINS LIQUID 15 ML UDC PO SCH ×3 (06:29→09:09)
--- NOTE | 2021-04-10 06:42 | Individualized Plan of Care ---
Individualized Plan of Care Rehab Nursing IPOC Order Admission Date Apr 09, 2021 at 13:00 Current Orders Orders Admission Order(Inpt,Obs,Sdc) (04/09/21 12:07) Vital Signs: Per Unit Policy ( ,16,00 (04/09/21 12:07) Shailesh Perkins (04/09/21 12:07) Sequential Compression Device .admit (04/09/21 12:07) Numerical Analysis Group Manager-Inpt Rehab Con (04/09/21 12:07) Rehab Nursing Orders-Ipoc (04/09/21 12:07) Physical Therapy Rehab Orders (04/09/21 12:07) Occupational Therapy Rehab Ord (04/09/21 12:07) Speech Therapy Rehab Orders (04/09/21 12:07) Cbc With Automated Diff (04/10/21 06:00) Comprehensive Metabolic Panel (04/10/21 06:00) Precautions (Aru) (04/09/21 12:07) Weekly Weight WEEK (04/09/21 12:07) Rehab-Intensity Of Therapy (04/09/21 12:07) Acetaminophen Tablet/Caplet (Tylenol T (04/09/21 12:15) Alprazolam Tablet (Xanax Tablet) (04/09/21 12:15) Calcium Carbonate Chew Tablet (Antacid C (04/09/21 12:15) Diphenhydramine Tablet (Benadryl Tablet) (04/09/21 12:15) Docusate Sodium Capsule (Colace Capsule) (04/09/21 21:00) Docusate Sodium Capsule (Colace Capsule) (04/09/21 12:15) Bisacodyl Suppository (Dulcolax Supposit (04/09/21 12:15) Lactulose Oral Solution (Enulose Oral So (04/09/21 12:15) Na Phos/Na Biphos Enema (Fleet Enema [place] (04/09/21 12:15) Guaifenesin/Codeine Syrup (Robitussin Ac (04/09/21 12:15) Hydrocodone/Apap 5/325 Tablet (Lortab 5 (04/09/21 12:15) Loperamide Tablet (Imodium Tablet) (04/09/21 12:15) Melatonin Tablet (Melatonin Tablet) (04/09/21 12:15) Polyethylene Glycol Powder Pkt (Miralax (04/09/21 21:00) Ondansetron Oral Dissolve Tab (Zofran (04/09/21 12:15) Senna S Tablet (Senokot S Tablet) (04/09/21 21:00) Initiate Admission Nursing Pro .admission (04/09/21 12:07) Admission Order(Inpt,Obs,Sdc) (04/09/21 13:00) Code/Resuscitation (04/09/21 13:21) Ambulate 08,12,20 (04/09/21 13:00) Isolation Central Supply Req (04/09/21 13:21) Admission Arrival Bed Request (04/09/21 13:25) General/Regular (04/09/21 Lunch) Mat Initiate Protocol (04/09/21 14:14) Rt Request For Service (04/09/21 14:14) Rt Request For Service (04/09/21 14:14) General/Regular (04/09/21 Dinner) Albuterol/Ipra Inhalation Soln (Duoneb I (04/09/21 15:15) Cephalexin Capsule (Keflex Capsule) (04/09/21 21:00) Docusate Sodium Capsule (Colace Capsule) (04/09/21 21:00) Bisacodyl Suppository (Dulcolax Supposit (04/09/21 15:15) Enoxaparin Injection (Lovenox Injection) (04/09/21 15:15) Hydrocodone/Apap 10/325 Tablet (Lortab 1 (04/09/21 15:15) Melatonin Tablet (Melatonin Tablet) (04/09/21 15:15) Polyethylene Glycol Powder Pkt (Miralax (04/09/21 15:15) Antacid Suspension (Mylanta Suspension (04/09/21 15:15) Nicotine Patch (Nicoderm Patch) (04/10/21 09:00) Ondansetron Injection (Zofran Injectio (04/09/21 15:15) Sennosides Tablet (Senokot Tablet) (04/09/21 21:00) Acetaminophen Tablet/Caplet (Tylenol T (04/09/21 15:15) Fentanyl Inj (Sublimaze Injection) (04/09/21 15:15) Prednisone Tablet (Deltasone Tablet) (04/10/21 07:00) Consult General Surgery (04/09/21 15:10) Incentive Spirometry Initial (04/09/21 15:10) Mat Initiate Protocol (04/09/21 15:10) Svn Small Volume Nebulizer (04/09/21 15:10) Incentive Spirometry (Nursing) Q2H (04/09/21 15:10) Aspirin Chewable Tablet (Baby Aspirin Ch (04/10/21 09:00) Calcium Carbonate Tablet (Calcarb 600 Ta (04/10/21 09:00) Chlorhexidine 0.12% Oral Soln (Peridex 0 (04/09/21 21:00) Citalopram Tablet (Celexa Tablet) (04/09/21 21:00) Furosemide Tablet (Lasix Tablet) (04/10/21 09:00) Hydrocodone/Apap 10/325 Tablet (Lortab 1 (04/09/21 15:45) Ipratropium 0.02% Neb Solution (Atrovent (04/09/21 15:45) Nystatin Oral Suspension (Mycostatin O (04/09/21 21:00) Promethazine/ Codeine Syrup (Phenergan W (04/09/21 21:00) Propranolol [place] (Non-Formulary) (Inderal (04/10/21 18:15) Spironolactone Tablet (Aldactone Tablet) (04/10/21 09:00) Tamsulosin Capsule (Flomax Capsule) (04/09/21 21:00) (Nf) Budesonide (Rhinocort Allergy) (04/10/21 09:00) (Nf) Cetirizine Hcl (Zyrtec) (04/10/21 09:00) (Nf) Cholecalciferol (Vitamin D3) (Vitam (04/09/21 15:45) (Nf) Cholecalciferol (Vitamin D3) (Vitam (04/10/21 09:00) (Nf) Formoterol Fumarate (Perforomist) (04/09/21 21:00) (Nf) Pedi Mv No.79/Ferrous Fumarate (Fli (04/10/21 09:00) (Nf) Potassium Chloride (04/10/21 09:00) (Nf) Thyroid,Pork ([place] Thyroid) (04/10/21 09:00) Patch Removal (Patch Removal) (04/10/21 08:59) Potassium Chloride (Tablet) (Klor Con Ta (04/10/21 08:00) Loratadine Tablet (Claritin Tablet) (04/10/21 09:00) Cholecalciferol Capsule/Tablet (Vitamin (04/10/21 09:00) Thyroid ([place]) Tablet (Thyroid ([place] (04/10/21 06:30) Fluticasone Nasal [place] (Flonase Nasal S (04/10/21 09:00) Enoxaparin Injection (Lovenox Injection) (04/09/21 17:00) Multivitamins Liquid (Geritol Liquid) (04/10/21 07:00) Zinc Oxide 16% (Butt Paste) (04/09/21 21:00) Lidocaine 4% Patch ([place] 4% Patch) (04/09/21 19:00) Albuterol/Ipra Inhalation Soln (Duoneb I (04/09/21 19:00) Svn Small Volume Nebulizer (04/09/21 18:49) Oxycodone Immediate Rel Tablet (Oxyir Ta (04/09/21 19:00) Cefdinir Capsule (Omnicef Capsule) (04/09/21 21:00) Methylprednisolone Sod Succ (Solu-Medrol (04/09/21 21:00) Methylprednisolone Sod Succ (Solu-Medrol (04/09/21 19:49) Patch Removal (Patch Removal) (04/09/21 21:00) Patient Visit (04/09/21 ) Pt Eval Moderate Complexity (04/09/21 ) Functional Activities, Ea 15 (04/09/21 ) Consult Pulmonology (04/10/21 09:05) Enoxaparin Injection (Lovenox Injection) (04/10/21 09:00) (Nf) Formoterol Fumarate (Perforomist) (04/10/21 21:00) Bipap (Bilevel) Set Up (04/10/21 12:34) Therapeutic Multivitamin Tab (Vitamins, (04/11/21 07:00) Patient May Use Own Med,Single (Patient (04/10/21 13:45) Patient May Use Own Med,Single (Patient (04/10/21 13:45) Patient Visit (04/10/21 ) Speech Sound Lang Comp (04/10/21 ) Treat. Speech/Lang/Voice (04/10/21 ) Patient Visit (04/10/21 ) Functional Activities, Ea 15 (04/10/21 ) Exercise Therap, Ea 15 Min (04/10/21 ) Dressing Order (Intervention) DAILY PRN (04/10/21 14:56) Rehab Nursing Orders: Ongoing Assess. of Cognitive Status, Ongoing Assess. of Function Status, Bladder Management, Bladder Scan, Bladder Training, Bowel Management, Bowel Training, Disease Management & Educaiton, DVT Prophylaxis, Fall Prevention, Fluid/Electrolyte/Nutrition Mgmt, Infection Prevention, Medication Management & Education, Management of Risks & Complications, Nutrition Management, Pain Management, Patient/Family Support, Safety Management Intensity of Therapy to be met Patient to be seen: Min.3h per day/5 of 7d PT IPOC Problem List: Activity Tolerance, Functional Strength, Safety, Balance, Gait, Transfer, Bed Mobility, ROM Treatment Plan: Continue Plan of Care Bed Mobility, Education, Functional Activity [place], Functional Strength, Gait, Safety, Therapeutic Exercise, Transfers Treatment Duration: Apr 30, 2021 Frequency: At least 5 of 7 days/Wk (IRF) Estimated Hrs Per Day: 1.5 hours per day OT IPOC Problems: Decreased Activ Tolerance, Decreased UE Strength, Impaired Funct Balance, Impaired I ADL's, Impaired Self-Care Skills, Restricted Funct UE ROM OT Treatment, Training and Edu: Yes Plan of Care: ADL Retraining, Functional Mobility, Group Exercise/Act as Ind, U E Funct Exercise/Act Treatment Duration: May 04, 2021 Frequency: At least 5 of 7 days/Wk (IRF) Estimated Hrs Per Day: 1.[address] IPOC Speech Therapy Treatment Plan: Discontinue ST Treatment Duration: Apr 10, 2021 Frequency: Modified Program (IRF) Estimated Hrs Per Day: Other Numerical Analysis Group Manager/Case Mgmt Numerical Analysis Group Manager/Case Managemen: Discharge Planning Dietitian/Workers Compensation Specialist Dietitian/Workers Compensation Specialist to monitor nutritional status and make changes and/or recommendations as needed and work with speech pathology on dietary upgrades as the occur. Physician IPOC Medical Issues being managed closely and that require the 24 hour availability of a physician: Patient with severe COPD now with rib fractures and exacerbation of COPD with bronchitis requiring IV steroids and antibiotics and pulmonology consultation nebulizer treatments and increased oxygen requirements will require close monitoring for decompensation Medical Issues: Bowel/Bladder Function, DVT Prophylaxis, Falls Precautions, Fluid/Electrolyte/Nutrition Balance, Infection Protection, Pain Management Brief Synthesis of Preadmission Screen, Post-Admission Evaluation, and Therapy Evaluations: PT and OT will focus on regaining ambulatory function along with independent ADLs in order to recover from rib fractures and manage rib pain along with resolution of exacerbation of COPD with bronchitis Medical Prognosis: Guarded Anticipated Length of Stay: 7 days CASTRO MOLINA DO Apr 10, 2021 06:42
--- NOTE | 2021-04-10 06:42 | PM&R Progress Note ---
Subjective HPI/CC On Admission Date Seen by Provider: Apr 10, 2021 Time Seen by Provider: 10:00 Subjective/Events-last exam 04/10/2021: Pt doing pretty well Upset about her home nebulizer medication restarted. Pharmacy will be in charge of that Pulmonology consult at noon today Hemoglobin 9.2 Pt very wheezy Refusing SCDs and Lovenox Bowels are moving well Review of Systems General: Fatigue Pulmonary: Dyspnea Objective Exam Vital Signs Vital Signs Date Time Temp Pulse Resp B/P (MAP) Pulse Ox O2 Delivery O2 Flow Rate FiO2 04/10/21 21:29 95 Nasal Cannula 3.00 04/10/21 20:00 36.4 88 16 91/51 (64) Capillary Refill : General Appearance: No Apparent Distress, WD/WN, Anxious, Chronically ill HEENT: PERRL/EOMI, Normal ENT Inspection, Pharynx Normal Neck: Full Range of Motion, Normal Inspection, Non Tender, Supple, Carotid Bruit Respiratory: Chest Non Tender, No Respiratory Distress, Accessory Muscle Use (Subtle during conversation), Decreased Breath Sounds, Wheezing Cardiovascular: Regular Rate, Rhythm, No Edema, No Gallop, No JVD, No Murmur, Normal Peripheral Pulses Gastrointestinal: Normal Bowel Sounds, No Organomegaly, No Pulsatile Mass, Non Tender, Soft Back: Normal Inspection, No CVA Tenderness, No Vertebral Tenderness Extremity: Normal Capillary Refill, Normal Inspection, Normal Range of Motion, Non Tender, No Calf Tenderness, No Pedal Edema Neurologic/Psychiatric: Alert, Oriented x3, No Motor/Sensory Deficits, Normal Mood/Affect, Abnormal Gait, Depressed Affect, Motor Weakness (Generalized all extremities) Skin: Normal Color, Warm/Dry Lymphatic: No Adenopathy Results/Procedures Lab Patient resulted labs reviewed. FIM Transfers Therapy Code Descriptions/Definitions Functional [place] Measure: 0=Not Assessed/NA 4=Minimal Assistance 1=Total Assistance 5=Supervision or Setup 2=Maximal Assistance 6=Modified [place] 3=Moderate Assistance 7=Complete IndependenceSCALE: Activities may be completed with or without assistive devices. 9-Qdjxuvyaek-dyihtdq completes the activity by him/herself with no assistance from a helper. 5-Set-up or Clean-up Assistance-helper sets up or cleans up; patient completes activity. [place] assists only prior to or following the activity. 4-Supervision or Touching Assistance-helper provides verbal cues and/or touching/steadying and/or contact guard assistance as patient completes activity. Assistance may be provided throughout the activity or intermittently. 3-Partial/Moderate Assistance-helper does LESS THAN HALF the effort. [place] lifts, holds or supports trunk or limbs, but provides less than half the effort. 2-Substantial/Maximal Assistance-helper does MORE THAN HALF the effort. [place] lifts or holds trunk or limbs and provides more than half the effort. 6-Vouipqwlb-ettmzh does ALL the effort. Patient does none of the effort to complete the activity. Or, the assistance of 2 or more helpers is required for the patient to complete the activity. If activity was not attempted, code reason: 7-Patient Refused. 9-Not Applicable-not attempted and the patient did not perform the activity before the current illness, exacerbation or injury. 10-Not Attempted due to Environmental Limitations-(lack of equipment, weather restraints, etc.). 88-Not Attempted due to Medical Conditions or Safety Concerns. Roll Left to Right (QC): 6 Sit to Lying (QC): 6 Sit to Stand (QC): 3 Chair/Vrp-op-Xouwy Xfer(QC): 4 Car Transfer (QC): 4 Gait Training Does the Patient Walk?: Yes Walk 10 feet (QC): 4 Walk 50 ft with 2 Turns(QC): 4 Walk 150 ft (QC): 88 Walking 10ft/uneven surface-QC: 4 Gait Assistive Device: FWW Wheelchair Training Does the Pt Use a Wheelchair?: No Wheel 50 ft with 2 turns (QC): 9 Wheel 150 ft (QC): 9 Stair Training #of Steps: 1 1 Step (curb) (QC): 4 4 Steps (QC): 88 12 Steps (QC): 88 Balance Picking up an Object (QC): 88 ADL-Treatment Eating (QC): 5 (set up assist) Oral Hygiene (QC): 5 (based on clincial judgement, set up assist) Shower/Bathe Self (QC): 4 (CGA, pt able to wash/dry all parts with increased time.) Upper Body Dressing (QC): 5 (set up assist with tack puller shirt.) Lower Body Dressing (QC): 3 (CGA in stand for pant hike, pt able to thread BLEs into underwear, assist with threading LLE into pants.) On/Off Footwear (QC): 3 (Pt able to doff bilateral gripper socks, assist to don.) Toileting Hygiene (QC): 4 (CGA, pt able to complete hygiene and pant hike.) Assessment/Plan Assessment and Plan Assess & Plan/Chief Complaint Assessment: Acute on chronic debility Multiple falls Severe right rib fractures multiple Acute exacerbation of COPD with bronchitis Active wheezing requiring IV steroids and oral antibiotics Current smoker Severe COPD Prednisone dependent Osteoporosis Hypothyroidism Chronic kidney disease Refusing Lovenox for DVT prophylaxis Plan: IV steroids Inpatient rehab protocol Nebulizer treatments Oxygen Refusing DVT prophylaxis 04/10/2021: Pulmonology consult appreciated Wheezing continues Monitor closely Home nebulizer machine meds to be restarted (1) Debility (2) Immobility (3) Chronic respiratory failure with hypoxia Status: Chronic (4) Medication refused Status: Acute (5) Normocytic anemia Status: Acute (6) Multiple fractures of ribs, bilateral, initial encounter for closed fracture Status: Acute (7) ABHAY (acute kidney injury) Status: Acute (8) Tobacco abuse Status: Chronic (9) COPD (chronic obstructive pulmonary disease) Status: Chronic (10) Frequent falls Status: Acute (11) Dehydration Status: Acute CASTRO MOLINA DO Apr 10, 2021 06:42
[2021-04-10] MEDS ORDERED: predniSONE 10 MG TAB PO SCH (07:00)
[2021-04-10] MEDS: RT-ALBUTEROL/IPRATROPIUM 3 ML (DUONEB) VIAL INH SCH ×2 (07:18→07:27)
[2021-04-10 07:57] VITALS: BP 117/57
[2021-04-10] MEDS: SENNOSIDES 8.6 MG (SENOKOT) TAB PO SCH ×2 (08:57→20:36)
[2021-04-10] MEDS: NICOTINE 14 MG (NICODERM) PATCH TD SCH (08:57)
[2021-04-10] MEDS: CALCIUM CARBONATE 600 MG (CALCARB) TAB PO SCH (08:57)
[2021-04-10] MEDS: SPIRONOLACTONE 25 MG (ALDACTONE) TAB PO SCH (08:57)
[2021-04-10] MEDS: KCL 10 MEQ TAB (MICRO K) PO SCH (08:57)
[2021-04-10] MEDS: LORATADINE (CLARITIN) 10 MG TAB PO SCH (08:58)
[2021-04-10] MEDS: ASPIRIN 81 MG CHEW (CHILDREN'S ASA) PO SCH (08:58)
[2021-04-10] MEDS: VITAMIN D3 25 MCG (1,000 UNITS) TABLET PO SCH (08:58)
[2021-04-10] MEDS: DOCUSATE SODIUM 100 MG (COLACE) CAP PO SCH ×2 (08:58→20:36)
[2021-04-10] MEDS: CEFDINIR 300 MG (OMNICEF) CAP PO SCH ×2 (08:58→20:36)
[2021-04-10] MEDS: FUROSEMIDE 40 MG (LASIX) TAB PO SCH (08:58)
[2021-04-10] MEDS: methylPREDNISolone 40 MG/ML (Solu-MEDROL) VIAL IV SCH ×2 (08:59→20:36)
[2021-04-10] MEDS: LIDOCAINE 4% (SALONPAS) PATCH TOP SCH (08:59)
[2021-04-10] MEDS: polyethylene glycoL POWDER 17 GM (MIRALAX) PACK PO SCH ×2 (08:59→20:46)
[2021-04-10] MEDS ORDERED: [UNRECOGNIZED DRUG - REMARK] NS SCH (09:00)
[2021-04-10] MEDS ORDERED: NON-FORMULARY MEDICATION 1 EA EA (Potassium Chloride 10 MEQ) PO SCH (09:00)
[2021-04-10] MEDS ORDERED: NON-FORMULARY MEDICATION 1 EA EA (Cetirizine HCl (Zyrtec) 10 MG) PO SCH (09:00)
[2021-04-10] MEDS ORDERED: NON-FORMULARY MEDICATION 1 EA EA (Pedi Mv No.79/Ferrous Fumarate (Flintstones with Iron Ta PO SCH (09:00)
[2021-04-10] MEDS: NICOTINE PATCH REMOVAL TP SCH (09:00)
[2021-04-10] MEDS ORDERED: THYROID PORK 90 MG PO SCH (09:00)
[2021-04-10] MEDS ORDERED: NON-FORMULARY MEDICATION 1 EA EA (Cholecalciferol (Vitamin D3) (Vitamin D3) 50 MCG) PO SCH (09:00)
[2021-04-10] MEDS: CHLORHEXIDINE 0.12% SOLN 15 ML (PERIDEX) UDC PO SCH ×2 (09:00→20:37)
[2021-04-10] MEDS: FLUTICASONE NASAL SPRAY (FLONASE) 16 GM BTL NS SCH (09:01)
--- NOTE | 2021-04-10 09:01 | ST Cognitive Linguistic Eval ---
Speech Evaluation-General Medical Diagnosis Debility Onset Date: Apr 06, 2021 Therapy Diagnosis Therapy Diagnosis: Cognitive-communication Medical History Pertinent Medical History: COPD (O2 dependent), Smoking Reviewed History: Yes Social History Current Living Status: Spouse Speech PLF-Current Status Prior Level of Function Patient lives at home with her where she was independent for most of her daily needs. Subjective Patient was pleasant and cooperative with the cognitive assessment. Language Eval: Auditory Comprehends Simple Yes/No Ques: Functional Indent/Objects [place]: Functional Ident/Pics in [place]: Functional Follows 1-Step Commands: Functional Follows Complex Directions: Functional Follows General Conversations: Functional Language Eval: Verbal Language Completes Spontaneous Greeting: Functional Produces Auto, Serial Info: Functional Imitates Simple Words/Phrases: Functional Word Finding: Mild Requests Basic Needs: Functional States Basic Personal Info: Functional Expresses Complex Ideas: Functional Objective Cognitive Domain Attention: WNL Memory: WNL Problem Solving: Functional Executive Functions: WNL Visuospatial Skills: WNL Composite Severity Rating: WNL Clock Drawing Severity Rating: WNL Objective Formal/Standardized Tests [facility] Status ([facility]) Results 28/30, within normal range of function Oral Motor/Speech Production Within Normal Limits Impression Patient is a pleasant 76 y/o female who was admitted to the ARU with fractured ribs from a fall. Patient states she has fallen 3x in the past week. Her fractured ribs are causing a great deal of pain and she has debility requiring therapy to improve. The patient was given the SLUMS at bedside with her present. She obtained a score of 28/30 which is within the normal range of function. Speech Patient Assess Expression of Ideas/Wants: Expression (4) Understanding Verbal Content: Understands (4) Brief Interview-Mental Status: Yes Repetition of Three Words: Three (3) Temporal Orientation: Year: Correct (3) Temporal Orientation: Month: Accurate within 5 days(2) Temporal Orientation: Day: Correct (1) Recall : Wear to say "Sock": Yes, no cue required (2) Recall : Color: Yes, no cue required (2) Recall : Bed: Yes,after cueing (1) Memory/Recall Ability: Current season, That he or she is in a hsp/hsp unit Speech-Plan Patient/Family Goals Patient/Family Goals: Patient plans on returning to her home upon discharge. Treatment Plan Speech Therapy Treatment Plan: Discontinue ST Treatment Duration: Apr 10, 2021 Frequency: 1 time per week Estimated Hrs Per Day: .5 hour per day Rehab Potential: Fair Barriers to Learning: Patient's recent series of falls Pt/Family Agrees to Plan: Yes Safety Risks/Education Teaching Recipient: Patient, Significant Other Teaching Methods: Discussion Response to Teaching: Verbalize Understanding Education Topics Provided: Safety within her room, communication of wants/needs Time Speech Therapy Time In: 08:30 Speech Therapy Time Out: 09:00 Total Billed Time: 30 Billed Treatment Time 1, [facility] Apr 10, 2021 09:01
[2021-04-10] MEDS: ZINC OXIDE 16% OINT (BUTT PASTE) 57 GM TUBE TOP SCH ×2 (09:07→20:37)
--- NOTE | 2021-04-10 10:15 | Pulmonary Consultation ---
History of Present Illness History of Present Illness Date Seen by Provider: Apr 10, 2021 Time Seen by Provider: 11:00 Date of Admission History of Present Illness Pt with hx of copd, advanced stage, on home o2 4l, steroids chronic use, presented to rehab for optimization of function and exercise tolerance. Exercise tolerance feet now up to 1 block and 4 steps stairs cough pattern occ / clear sputum ( painful act due to broken ribs) sputum production on/ off sputum color clear to yellow nocturnal symptoms uses o2 snoring occ daytime sleepiness occ use of rescue inhalers 2-4/day use of rescue nebs 1-2/ day Allergies and Home Medications Allergies Coded Allergies: nitrofurantoin (Verified Allergy, Severe, RASH, 12/10/15) ITCHING AND RASH sulfamethoxazole (Verified Allergy, Severe, RASH, 12/10/15) ITCHING AND RASH trimethoprim (Verified Allergy, Severe, RASH, 12/10/15) ITCHING AND RASH azithromycin (Verified Allergy, Unknown, 08/14/14) cefixime (Verified Allergy, Unknown, 08/14/14) Home Medications Albuterol Sulfate 1 Puff Puff, 2 PUFF IH Q4H PRN for WHEEZING, (Reported) Aspirin 81 Mg Tab.chew, 81 MG PO DAILY, (Reported) Budesonide 8.43 Ml [place].pump, 2 SPRAYS NS DAILY, (Reported) Calcium Carbonate 600 Mg Tablet, 1,200 MG PO DAILY, (Reported) Cetirizine HCl 10 Mg Tablet, 10 MG PO DAILY, (Reported) Chlorhexidine Gluconate 473 Ml Mouthwash, 15 ML PO BID, (Reported) Cholecalciferol (Vitamin D3) 50 Mcg Capsule, 50 MCG PO DAILY, (Reported) Cholecalciferol (Vitamin D3) 1,250 Mcg Capsule, 1,250 MCG PO FRIDAY, (Reported) Citalopram Hydrobromide 20 Mg Tablet, 20 MG PO HS, (Reported) Formoterol Fumarate 20 Mcg/2 Ml Vial.neb, 20 MCG IH BID, (Reported) Furosemide 40 Mg Tablet, 40 MG PO DAILY, (Reported) Hydrocodone/Acetaminophen 1 Each Tablet, 1 EACH PO Q6H PRN for PAIN-MODERATE (5- 7), (Reported) Ipratropium [place] 0.2 Mg/1 Ml Solution, 0.2 MG IH TID PRN for SHORTNESS OF BREATH, (Reported) Nystatin 100,000 Unit/1 Ml Oral.susp, 15 ML PO BID, (Reported) Pedi Mv No.79/Ferrous Fumarate 18 Mg Tab.chew, 18 MG PO DAILY, (Reported) Potassium Chloride 10 Meq Tab.er.prt, 10 MEQ PO DAILY, (Reported) Prednisone 5 Mg Tablet, 10 MG PO DAILY, (Reported) TAKES 2 (5MG) TABLETS Promethazine HCl/Codeine 473 Ml Syrup, 5 ML PO HS, (Reported) Propranolol HCl 120 Mg Cap.sa.24h, 120 MG PO DAILY, (Reported) Spironolactone 25 Mg Tablet, 25 MG PO DAILY, (Reported) Tamsulosin HCl 0.4 Mg Cap, 0.4 MG PO HS, (Reported) Thyroid,Pork 90 Mg Tablet, 90 MG PO DAILY, (Reported) Past Medical/Social/Family Hx Patient Social History Mar[place] Status: Employed/Student: retired Tobacco Use?: Yes Tobacco type used: Cigarettes Smoking Status: Current Someday Smoker Smokeless Tobacco Frequency: Current Everyday User E-Cig or Vaping type used: Nicotine Substance use?: No Alcohol Use?: Yes Immunizations Up To Date Influenza Vaccine Up-to-Date: No; Not Current First/Initial COVID19 Vaccinat: 2020 Second COVID19 Vaccination [place]: 2020 TB Skin Test: Positive Date of Pneumonia Vaccine: May 13, 2013 Current Status Communicates: Verbally Primary Language: Somali Preferred Spoken Language: Somali Is interpretation needed?: No Review of Systems Constitutional: weakness Respiratory: cough, dyspnea on exertion, short of breath Sepsis Event Evaluation Height, Weight, BMI Height: 5'3.00" Weight: 110lbs. 0.0oz. 49.863665tm; 21.40 BMI Method:Stated Exam Exam Patient acknowledged, consented, and participated in this virtual visit which was conducted using real time audio/video Vital Signs Date Time Temp Pulse Resp B/P (MAP) Pulse Ox O2 Delivery O2 Flow Rate FiO2 04/10/21 09:12 95 Room Air 3.00 04/10/21 07:57 36.6 86 16 117/57 (77) 96 Nasal Cannula 3.00 04/10/21 07:28 96 Nasal Cannula 3.00 04/09/21 20:45 95 Room Air 3.00 04/09/21 20:45 36.7 79 22 140/61 (87) 95 Room Air 04/09/21 20:28 96 Nasal Cannula 3.00 04/09/21 16:53 96 Nasal Cannula 3.00 04/09/21 13:00 36.4 72 22 128/78 (95) 97 Nasal Cannula 3.00 Height & Weight Height: 5'3.00" Weight: 110lbs. 0.0oz. 49.865000pa; 21.40 BMI Method:Stated General Appearance: No Apparent Distress, WD/WN, Anxious, Chronically ill HEENT: PERRL/EOMI, Normal ENT Inspection, Pharynx Normal Neck: Full Range of Motion, Normal Inspection, Non Tender, Supple, Carotid Bruit Respiratory: Chest Non Tender, No Respiratory Distress, Accessory Muscle Use (Subtle during conversation), Decreased Breath Sounds, Wheezing Cardiovascular: Regular Rate, Rhythm, No Edema, No Gallop, No JVD, No Murmur, Normal Peripheral Pulses Extremity: Normal Capillary Refill, Normal Inspection, Normal Range of Motion, Non Tender, No Calf Tenderness, No Pedal Edema Neurologic/Psychiatric: Alert, Oriented x3, No Motor/Sensory Deficits, Normal Mood/Affect, Abnormal Gait, Depressed Affect, Motor Weakness (Generalized all extremities) Skin: Normal Color, Warm/Dry Lymphatic: No Adenopathy Results Lab Laboratory Tests 04/10/21 05:05 Assessment/Plan Assessment/Plan Advanced COPD -home O2 keep pulse ox >89% -consider ABG if pco2 >54mmHg we will advice nocturnal bipap -sleep study outpatient -[facility] inhaler may not be an option due to financial constrains; consider sample in the clinic/ continue LABA nebs and prn nebs/ inhalers SUJATHA -covid vaccination/ influenza pneumonia vaccine updates -smoking cessation discussed in details/ continue to use the nicotine patch -abg if pco2>54 consider nocturnal bipap / bipap 10/ empirically dw patient in details used magdiel miller communicated with DONALD Jaquez MD Apr 10, 2021 10:14
[2021-04-10] MEDS: ENOXAPARIN 40 MG/0.4 ML (LOVENOX) SYR SC SCH (10:48)
--- NOTE | 2021-04-10 12:01 | Occupational Ther Daily Note ---
OT Current Status-Daily Note Subjective Pt alert, sitting in recliner. Pt wondering about her breathing treatments, let nrsg know pt's question. No c/o pain at this time though fatigues easily and requires multiple lengthy recovery breaks. Mental Status/Objective Patient Orientation: Person, Place, Time, Situation Attachments: IV, Oxygen (4L sitting, 6L with activity) ADL-Treatment Pt agrees to shower. Pt ambulates to bathroom using FWW with SBA. SBA to transfer on/off toilet using grabbars and FWW. SBA using grabbars and FWW to manipulate clothing, sitting on toilet to complete hygiene. SBA for shower transfer using FWW, grabbars and shower bench. Sitting on shower bench, pt able to complete all areas except buttocks and jolie area. SBA in standing while pt stood to bath those areas. Pt used LH sponge, grabbars and hand held shower to complete bathing. After set up, pt able to don/doff upper body clothing by self. Pt will need AE for lower body dressing due to SOA with bending over. Assist given to thread lower body clothing over feet then pt able to stand and hike pants over hips with SBA. Pt completed toileting 2x's during session. Co -treat with PT ([id number]) for skilled intervention that requires 2 clinicians due to increase SOA with activity, decreased activity tolerance. PT focusing on B LE strengthening, mobility and transfers while OT focusing on ADLs and functional mobility. After session, pt sitting in recliner with call light/phone in reach. All needs met in room. Therapy Code Descriptions/Definitions Functional [place] Measure: 0=Not Assessed/NA 4=Minimal Assistance 1=Total Assistance 5=Supervision or Setup 2=Maximal Assistance 6=Modified [place] 3=Moderate Assistance 7=Complete IndependenceSCALE: Activities may be completed with or without assistive devices. 0-Nmkkookhgg-syceavz completes the activity by him/herself with no assistance from a helper. 5-Set-up or Clean-up Assistance-helper sets up or cleans up; patient completes activity. [place] assists only prior to or following the activity. 4-Supervision or Touching Assistance-helper provides verbal cues and/or touching/steadying and/or contact guard assistance as patient completes act ivity. Assistance may be provided throughout the activity or intermittently. 3-Partial/Moderate Assistance-helper does LESS THAN HALF the effort. [place] lifts, holds or supports trunk or limbs, but provides less than half the effort. 2-Substantial/Maximal Assistance-helper does MORE THAN HALF the effort. [place] lifts or holds trunk or limbs and provides more than half the effort. 4-Rqktsylmh-ydfgcs does ALL the effort. Patient does none of the effort to complete the activity. Or, the assistance of 2 or more helpers is required for the patient to complete the activity. If activity was not attempted, code reason: 7-Patient Refused. 9-Not Applicable-not attempted and the patient did not perform the activity before the current illness, exacerbation or injury. 10-Not Attempted due to Environmental Limitations-(lack of equipment, weather restraints, etc.). 88-Not Attempted due to Medical Conditions or Safety Concerns. Oral Hygiene (QC): 7 (Declined due to fatigue) Shower/Bathe Self (QC): 4 Upper Body Dressing (QC): 5 Lower Body Dressing (QC): 3 On/Off Footwear: 3 Toileting Hygiene (QC): 4 Toilet Transfer (QC): 4 OT Short Term Goals Short Term Goals Time Frame: Apr 18, 2021 Shower/bathe self: 5 Upper body dressin Lower body dressin OT Mcfp Goals Sign Carpenter Goals Time Frame: May 04, 2021 Eating (QC): 6 Oral Hygiene (QC): 6 Toileting Hygiene (QC): 6 Shower/Bathe Self (QC): 6 Upper Body Dressing (QC): 6 Lower Body Dressing (QC): 6 On/Off Footwear (QC): 6 Additional Goals: 1-Demonstrate ADL Tasks, 2-Verbalize Understanding, 3- ImproveStrength/[place] 1=Demonstrate adherence to instructed precautions during ADL tasks. 2=Patient will verbalize/demonstrate understanding of assistive devices/modifications for ADL. 3=Patient will improve strength/tolerance for activity to enable patient to perform ADL's. OT Education/Plan Problem List/Assessment Assessment: Decreased Activ Tolerance, Decreased UE Strength, Impaired Self- Care Skills Discharge Recommendations Plan/Recommendations: Continue POC Treatment Plan/Plan of Care Patient would benefit from OT for education, treatment and training to promote independence in ADL's, mobility, safety and/or upper extremity function for ADL's. Plan of Care: ADL Retraining, Functional Mobility, Group Exercise/Act as Ind, UE Funct Exercise/Act Treatment Duration: May 04, 2021 Frequency: At least 5 of 7 days/Wk (IRF) Estimated Hrs Per Day: 1.5 hours per day Agreement: Yes Rehab Potential: Fair Time/GCodes Start Time: 10:30 Stop Time: 12:00 Total Time Billed (hr/min): 90 Billed Treatment Time 1 visit-ADL 5 (70 min) FA 1 (20 min) co-treat with PT [id number] ERIK DE LA GARZA Apr 10, 2021 12:01
--- NOTE | 2021-04-10 12:23 | Physical Therapy Daily Note ---
PT Daily Note-Current Subjective Pt finishing shower and getting dressed upon arrival. Pt agrees to co-treat w/OT. Pain Comment: Pt reports pain in ribs during tx but doesn't rate. Mental Status Patient Orientation: Person, Place, Situation Attachments: Oxygen (4L when sitting and 6L with standing or ambulation) Transfers SCALE: Activities may be completed with or without assistive devices. 7-Htlprosptf-jrqbwak completes the activity by him/herself with no assistance from a helper. 5-Set-up or Clean-up Assistance-helper sets up or cleans up; patient completes activity. [place] assists only prior to or following the activity. 4-Supervision or Touching Assistance-helper provides verbal cues and/or touching/steadying and/or contact guard assistance as patient completes activity. Assistance may be provided throughout the activity or intermittently. 3-Partial/Moderate Assistance-helper does LESS THAN HALF the effort. [place] lifts, holds or supports trunk or limbs, but provides less than half the effort. 2-Substantial/Maximal Assistance-helper does MORE THAN HALF the effort. [place] lifts or holds trunk or limbs and provides more than half the effort. 3-Gujsmzvhz-wfcmbb does ALL the effort. Patient does none of the effort to complete the activity. Or, the assistance of 2 or more helpers is required for the patient to complete the activity. If activity was not attempted, code reason: 7-Patient Refused. 9-Not Applicable-not attempted and the patient did not perform the activity before the current illness, exacerbation or injury. 10-Not Attempted due to Environmental Limitations-(lack of equipment, weather restraints, etc.). 88-Not Attempted due to Medical Conditions or Safety Concerns. Sit to Lying (QC): 4 Sit to Stand (QC): 4 Toilet Transfer (QC): 4 Weight Bearing Full Weight Bearing Full Weight Bearing Gait Training Does the Patient Walk?: Yes Distance: 15' x4 Walk 10 feet (QC): 4 Gait Persons Needed: 1 Gait Assistive Device: FWW Exercises Seated Therapy Exercises: Ankle pumps, Long arc quads, Hip flexion, Glut set Seated Reps: 15 Treatments Co-treat with PT ([id number]) for skilled intervention that requires 2 clinicians due to increase SOA with activity, decreased activity tolerance. PT focusing on B LE strengthening, mobility and transfers while OT focusing on ADLs and functional mobility. Pt toilets and finishes dressing. Pt completes Seated EX in recliner. After session, pt sitting in recliner with call light/phone [facility]. All needs met in room. [id number]: Pt asks to use BR then wants to return to bed to rest at end of tx. NUMERICAL CONTROL DRILL PRESS OPERATOR assists with positioning to comfort. All needs met, call light in hand. Assessment Current Status: Fair Progress Pt continues to be SOA and needs frequent RB. Pt wants to have breathing tx before extensive walking or hard exercise progression. NUMERICAL CONTROL DRILL PRESS OPERATOR encourages pt to push self but monitors O2 during tx. PT Short Term Goals Short Term Goals Time Frame: Apr 16, 2021 Roll Left & Right: 6 Sit to lyin Lying to sitting on side of be: 6 Sit to stand: 4 Chair/ckc-la-gvddt transfer: 4 Walk 10 feet: 4 Walk 50 feet with two turns: 4 Walk 150 feet: 4 PT Lab Pack Chemist Goals [facility] Goals PT Lab Pack Chemist Goals Time Frame: Apr 30, 2021 Roll Left & Right (QC): 6 Sit to Lying (QC): 6 Lying-Sitting on Side/Bed(QC): 6 Sit to Stand (QC): 5 Chair/Nkr-ob-Zinpj Xfer(QC): 5 Toilet Transfer (QC): 5 Car Transfer (QC): 5 Does the Patient Walk: Yes Walk 10 feet (QC): 5 Walk 50ft with 2 Turns (QC): 5 Walk 150 ft (QC): 5 Walking 10ft on Uneven Surface: 5 1 Step (curb) (QC): 5 4 Steps (QC): 5 12 Steps (QC): 88 Picking up an Object (QC): 88 Wheel 50 feet with 2 turns (QC: 9 Wheel 150 feet: 9 PT Plan Problem List Problem List: Activity Tolerance, Functional Strength Treatment/Plan Treatment Plan: Continue Plan of Care Treatment Plan: Bed Mobility, Education, Functional Activity [place], Functional Strength, Gait, Safety, Therapeutic Exercise, Transfers Treatment Duration: Apr 30, 2021 Frequency: At least 5 of 7 days/Wk (IRF) Estimated Hrs Per Day: 1.5 hours per day Patient and/or Family Agrees t: Yes Safety Risks/Education Patient Education: Gait Training, Correct Positioning, Safety Issues Teaching Recipient: Patient Teaching Methods: Discussion Response to Teaching: Verbalize Understanding Time/GCodes Time In: 1115 Time Out: 1430 Total Billed Treatment Time: 75 Total Billed Treatment [id number]: 1, FA x2 (25m) & EX (20m) Co-treat for 45m [id number]: 1, FA (15m) & EX (15m) PARKER LICEA NUMERICAL CONTROL DRILL PRESS OPERATOR Apr 10, 2021 12:23
[2021-04-10] MEDS: NYSTATIN ORAL SUSP 5 ML UDC PO SCH ×2 (13:22→20:37)
[2021-04-10] MEDS ORDERED: PATIENT MAY USE OWN MED,SINGLE MED PO SCH ×2 (13:45)
[2021-04-10] MEDS: PROPRANOLOL LA 120 MG (INDERAL LA) CAP NON-FORMULARY PO SCH (18:39)
[2021-04-10 20:00] VITALS: BP 91/51
[2021-04-10] MEDS: TAMSULOSIN 0.4 MG (FLOMAX) CAP PO SCH (20:36)
[2021-04-10] MEDS: PROMETHAZINE/ CODEINE SYRUP 5 ML UDC PO SCH (20:37)
[2021-04-10] MEDS: LIDOCAINE PATCH REMOVAL TP SCH (20:38)
[2021-04-10] MEDS: [UNRECOGNIZED DRUG - REMARK] IH SCH (21:29)
[2021-04-11] MEDS: THYROID (ARMOUR) 60 MG TABLET PO SCH (06:07)
--- NOTE | 2021-04-11 06:39 | PM&R Progress Note ---
Subjective HPI/CC On Admission Date Seen by Provider: Apr 11, 2021 Time Seen by Provider: 11:15 Subjective/Events-last exam 04/11/2021: Pt doing pretty well Pulmonology consult appreciated BiPAP will be set up tonight since it wasnt set up yesterday Bowels havent moved so giving laxatives Refusing Lovenox and SCDs Lungs are much improved on exam Discharge on 04/16/21 04/10/2021: Pt doing pretty well Upset about her home nebulizer medication restarted. Pharmacy will be in charge of that Pulmonology consult at noon today Hemoglobin 9.2 Pt very wheezy Refusing SCDs and Lovenox Bowels are moving well Review of Systems General: Fatigue, Malaise Pulmonary: Dyspnea Objective Exam Vital Signs Vital Signs Date Time Temp Pulse Resp B/P (MAP) Pulse Ox O2 Delivery O2 Flow Rate FiO2 04/11/21 21:00 Nasal Cannula 4.00 04/11/21 20:49 98 04/11/21 20:00 36.2 74 14 120/58 (78) Capillary Refill : General Appearance: No Apparent Distress, WD/WN, Anxious, Chronically ill HEENT: PERRL/EOMI, Normal ENT Inspection, Pharynx Normal Neck: Full Range of Motion, Normal Inspection, Non Tender, Supple, Carotid Bruit Respiratory: Chest Non Tender, No Respiratory Distress, Accessory Muscle Use (Subtle during conversation), Decreased Breath Sounds, Wheezing (Improved today) Cardiovascular: Regular Rate, Rhythm, No Edema, No Gallop, No JVD, No Murmur, Normal Peripheral Pulses Gastrointestinal: Normal Bowel Sounds, No Organomegaly, No Pulsatile Mass, Non Tender, Soft Back: Normal Inspection, No CVA Tenderness, No Vertebral Tenderness Extremity: Normal Capillary Refill, Normal Inspection, Normal Range of Motion, Non Tender, No Calf Tenderness, No Pedal Edema Neurologic/Psychiatric: Alert, Oriented x3, No Motor/Sensory Deficits, Normal Mood/Affect, Abnormal Gait, Depressed Affect, Motor Weakness (Generalized all extremities) Skin: Normal Color, Warm/Dry Lymphatic: No Adenopathy Results/Procedures Lab Patient resulted labs reviewed. FIM Transfers Therapy Code Descriptions/Definitions Functional [place] Measure: 0=Not Assessed/NA 4=Minimal Assistance 1=Total Assistance 5=Supervision or Setup 2=Maximal Assistance 6=Modified [place] 3=Moderate Assistance 7=Complete IndependenceSCALE: Activities may be completed with or without assistive devices. 5-Xukmrwvkdx-wwuvidv completes the activity by him/herself with no assistance from a helper. 5-Set-up or Clean-up Assistance-helper sets up or cleans up; patient completes activity. [place] assists only prior to or following the activity. 4-Supervision or Touching Assistance-helper provides verbal cues and/or touching/steadying and/or contact guard assistance as patient completes activity. Assistance may be provided throughout the activity or intermittently. 3-Partial/Moderate Assistance-helper does LESS THAN HALF the effort. [place] lifts, holds or supports trunk or limbs, but provides less than half the effort. 2-Substantial/Maximal Assistance-helper does MORE THAN HALF the effort. [place] lifts or holds trunk or limbs and provides more than half the effort. 4-Ohoyzbfse-evmavf does ALL the effort. Patient does none of the effort to complete the activity. Or, the assistance of 2 or more helpers is required for the patient to complete the activity. If activity was not attempted, code reason: 7-Patient Refused. 9-Not Applicable-not attempted and the patient did not perform the activity before the current illness, exacerbation or injury. 10-Not Attempted due to Environmental Limitations-(lack of equipment, weather restraints, etc.). 88-Not Attempted due to Medical Conditions or Safety Concerns. Roll Left to Right (QC): 6 Sit to Lying (QC): 4 Sit to Stand (QC): 4 Chair/Adp-pv-Zvwxv Xfer(QC): 4 Car Transfer (QC): 4 Gait Training Does the Patient Walk?: Yes Distance: 15' x4 Walk 10 feet (QC): 4 Walk 50 ft with 2 Turns(QC): 4 Walk 150 ft (QC): 88 Walking 10ft/uneven surface-QC: 4 Gait Persons Needed: 1 Gait Assistive Device: FWW Wheelchair Training Does the Pt Use a Wheelchair?: No Wheel 50 ft with 2 turns (QC): 9 Wheel 150 ft (QC): 9 Stair Training #of Steps: 1 1 Step (curb) (QC): 4 4 Steps (QC): 88 12 Steps (QC): 88 Balance Picking up an Object (QC): 88 ADL-Treatment Eating (QC): 5 (set up assist) Oral Hygiene (QC): 7 (Declined due to fatigue) Shower/Bathe Self (QC): 4 Upper Body Dressing (QC): 5 Lower Body Dressing (QC): 3 On/Off Footwear (QC): 3 Toileting Hygiene (QC): 4 Toilet Transfer (QC): 4 Assessment/Plan Assessment and Plan Assess & Plan/Chief Complaint Assessment: Acute on chronic debility Multiple falls Severe right rib fractures multiple Acute exacerbation of COPD with bronchitis Active wheezing requiring IV steroids and oral antibiotics Current smoker Severe COPD Prednisone dependent Osteoporosis Hypothyroidism Chronic kidney disease Refusing Lovenox for DVT prophylaxis Plan: IV steroids Inpatient rehab protocol Nebulizer treatments Oxygen Refusing DVT prophylaxis 04/10/2021: Pulmonology consult appreciated Wheezing continues Monitor closely Home nebulizer machine meds to be restarted 04/11/2021: BiPAP set up Nebulizers IV steroids Antibiotics (1) Debility (2) Immobility (3) Chronic respiratory failure with hypoxia Status: Chronic (4) Medication refused Status: Acute (5) Normocytic anemia Status: Acute (6) Multiple fractures of ribs, bilateral, initial encounter for closed fracture Status: Acute (7) ABHAY (acute kidney injury) Status: Acute (8) Tobacco abuse Status: Chronic (9) COPD (chronic obstructive pulmonary disease) Status: Chronic (10) Frequent falls Status: Acute (11) Dehydration Status: Acute CASTRO MOLINA DO Apr 11, 2021 06:39
[2021-04-11] MEDS ORDERED: [UNRECOGNIZED DRUG - REMARK] PO SCH (07:00)
[2021-04-11 07:35] VITALS: BP 107/59
[2021-04-11] MEDS: methylPREDNISolone 40 MG/ML (Solu-MEDROL) VIAL IV SCH ×2 (08:22→20:14)
[2021-04-11] MEDS: NYSTATIN ORAL SUSP 5 ML UDC PO SCH ×2 (08:22→20:14)
[2021-04-11] MEDS: CHLORHEXIDINE 0.12% SOLN 15 ML (PERIDEX) UDC PO SCH ×2 (08:22→20:14)
[2021-04-11] MEDS: ENOXAPARIN 40 MG/0.4 ML (LOVENOX) SYR SC SCH ×2 (08:22→08:34)
[2021-04-11] MEDS: polyethylene glycoL POWDER 17 GM (MIRALAX) PACK PO SCH ×3 (08:22→20:19)
[2021-04-11] MEDS: LORATADINE (CLARITIN) 10 MG TAB PO SCH (08:23)
[2021-04-11] MEDS: ASPIRIN 81 MG CHEW (CHILDREN'S ASA) PO SCH (08:23)
[2021-04-11] MEDS: FUROSEMIDE 40 MG (LASIX) TAB PO SCH (08:23)
[2021-04-11] MEDS: KCL 10 MEQ TAB (MICRO K) PO SCH (08:23)
[2021-04-11] MEDS: DOCUSATE SODIUM 100 MG (COLACE) CAP PO SCH ×2 (08:23→20:14)
[2021-04-11] MEDS: CEFDINIR 300 MG (OMNICEF) CAP PO SCH ×2 (08:23→20:14)
[2021-04-11] MEDS: CALCIUM CARBONATE 600 MG (CALCARB) TAB PO SCH (08:23)
[2021-04-11] MEDS: SPIRONOLACTONE 25 MG (ALDACTONE) TAB PO SCH (08:23)
[2021-04-11] MEDS: SENNOSIDES 8.6 MG (SENOKOT) TAB PO SCH ×2 (08:23→20:14)
[2021-04-11] MEDS: VITAMIN D3 25 MCG (1,000 UNITS) TABLET PO SCH (08:24)
[2021-04-11] MEDS: LIDOCAINE 4% (SALONPAS) PATCH TOP SCH (08:24)
[2021-04-11] MEDS: ZINC OXIDE 16% OINT (BUTT PASTE) 57 GM TUBE TOP SCH ×2 (08:24→20:19)
[2021-04-11] MEDS: FLUTICASONE NASAL SPRAY (FLONASE) 16 GM BTL NS SCH (08:25)
[2021-04-11] MEDS: PROPRANOLOL LA 120 MG (INDERAL LA) CAP NON-FORMULARY PO SCH (08:25)
[2021-04-11] MEDS: NICOTINE PATCH REMOVAL TP SCH (08:26)
[2021-04-11] MEDS: NICOTINE 14 MG (NICODERM) PATCH TD SCH (08:26)
[2021-04-11] MEDS: [UNRECOGNIZED DRUG - REMARK] IH SCH ×2 (08:29→20:44)
[2021-04-11] MEDS: RT-ALBUTEROL/IPRATROPIUM 3 ML (DUONEB) VIAL INH PRN ×2 (08:30→08:37)
--- NOTE | 2021-04-11 09:56 | Pulmonary Progress Note ---
Subjective Date Seen by a Provider: Apr 11, 2021 Time Seen by a Provider: 09:40 Subjective/Events-last exam 76 yo F with severe COPD, on LAMA neb, , IV Medrol, Recent CT chest showed several slightly displaced rib Fx on right and left, has had nerve block for pain. Rib pain is less after nerve block, feels can take deeper breath and cough better. Coughing up whitish yellow. Breathing is better, uses walker but breathing on minimal exertion is SOB. Still smoking few cigarettes/d Using nicotine patch Got COVID vaccine, No chest pain, At home takes nebulizer, albuterol, oxygen at home is set @ 4 lpm Sepsis Event Evaluation Height, Weight, BMI Height: 5'3.00" Weight: 110lbs. 0.0oz. 49.890486wg; 21.40 BMI Method:Stated Exam Exam Patient acknowledged, consented, and participated in this virtual visit which was conducted using real time audio/video Vital Signs Date Time Temp Pulse Resp B/P (MAP) Pulse Ox O2 Delivery O2 Flow Rate FiO2 04/11/21 08:38 96 Nasal Cannula 4.00 04/11/21 08:30 98 Nasal Cannula 4.00 04/11/21 07:35 36.4 58 16 107/59 (75) 99 Nasal Cannula 3.50 04/10/21 21:29 95 Nasal Cannula 3.00 04/10/21 21:00 Room Air 3.00 04/10/21 20:00 36.4 88 16 91/51 (64) 99 Height & Weight Height: 5'3.00" Weight: 110lbs. 0.0oz. 49.443817mm; 21.40 BMI Method:Stated General Appearance: No Apparent Distress, WD/WN, Anxious, Chronically ill HEENT: PERRL/EOMI, Normal ENT Inspection, Pharynx Normal Neck: Full Range of Motion, Normal Inspection, Non Tender, Supple, Carotid Bruit Respiratory: Chest Non Tender, No Respiratory Distress, Accessory Muscle Use (Subtle during conversation), Decreased Breath Sounds, Rhonci, Wheezing, Other Cardiovascular: Regular Rate, Rhythm, No Edema, No Gallop, No JVD, No Murmur, Normal Peripheral Pulses Gastrointestinal: normal bowel sounds Extremity: Normal Capillary Refill, Normal Inspection, Normal Range of Motion, Non Tender, No Calf Tenderness, No Pedal Edema, Pedal Edema Neurologic/Psychiatric: Alert, Oriented x3, No Motor/Sensory Deficits, Normal Mood/Affect, Abnormal Gait, Depressed Affect, Motor Weakness (Generalized all e xtremities) Skin: Normal Color, Warm/Dry Lymphatic: No Adenopathy Results Lab Laboratory Tests 04/10/21 05:05 Assessment/Plan Assessment/Plan Trend is towards improvement, would continue on present meds, can roll changer to oral prednisone tomorrow and continue other meds, She will work on smoking cessation. SpO2 is in good range , Time spent with patient (mins): 15 GIANLUCA DE LA CRUZ MD Apr 11, 2021 09:56
--- NOTE | 2021-04-11 10:55 | Occupational Ther Daily Note ---
OT Current Status-Daily Note Subjective Pt alert, sitting in recliner. Pt agrees to therapy. No c/o pain. Pt communicates a lot and requires multiple recovery breaks, increased time to complete all tasks. Mental Status/Objective Patient Orientation: Person, Place, Time, Situation Attachments: Oxygen (4L-6L with activity) ADL-Treatment Pt declines shower today, wants every other day due to being cold. Pt initially wanted to shampoo hair, but did not want to get cold. Attempted to have pt use shampoo cap and pt Pt sits at sink to complete oral care independently. Pt declines to change clothing. Discussed home bathroom, pt has tub shower with shower seat. Discussing alternative ways of stepping into tub that will be more safe, at this time pt's is assisting with stepping in. Therapy Code Descriptions/Definitions Functional [place] Measure: 0=Not Assessed/NA 4=Minimal Assistance 1=Total Assistance 5=Supervision or Setup 2=Maximal Assistance 6=Modified [place] 3=Moderate Assistance 7=Complete IndependenceSCALE: Activities may be completed with or without assistive devices. 9-Sicjedssal-syikzwt completes the activity by him/herself with no assistance from a helper. 5-Set-up or Clean-up Assistance-helper sets up or cleans up; patient completes activity. [place] assists only prior to or following the activity. 4-Supervision or Touching Assistance-helper provides verbal cues and/or touching/steadying and/or contact guard assistance as patient completes activity. Assistance may be provided throughout the activity or intermittently. 3-Partial/Moderate Assistance-helper does LESS THAN HALF the effort. [place] lifts, holds or supports trunk or limbs, but provides less than half the effort. 2-Substantial/Maximal Assistance-helper does MORE THAN HALF the effort. [place] lifts or holds trunk or limbs and provides more than half the effort. 5-Ruviisaad-lcbgni does ALL the effort. Patient does none of the effort to complete the activity. Or, the assistance of 2 or more helpers is required for the patient to complete the activity. If activity was not attempted, code reason: 7-Patient Refused. 9-Not Applicable-not attempted and the patient did not perform the activity before the current illness, exacerbation or injury. 10-Not Attempted due to Environmental Limitations-(lack of equipment, weather restraints, etc.). 88-Not Attempted due to Medical Conditions or Safety Concerns. Oral Hygiene (QC): 6 Other Treatment Gathered all equipment for lower body dressing for pt to use during stay. Pt ambulating using FWW with SBA for safety throughout ARU floor to increase B UE strength, activity tolerance and functional mobility balance. After session, pt sitting in recliner with call light/phone in reach. All needs met in room. OT Short Term Goals Short Term Goals Time Frame: Apr 18, 2021 Shower/bathe self: 5 Upper body dressin Lower body dressin OT Care Home Goals Rn Nicu Goals Time Frame: May 04, 2021 Eating (QC): 6 Oral Hygiene (QC): 6 Toileting Hygiene (QC): 6 Shower/Bathe Self (QC): 6 Upper Body Dressing (QC): 6 Lower Body Dressing (QC): 6 On/Off Footwear (QC): 6 Additional Goals: 1-Demonstrate ADL Tasks, 2-Verbalize Understanding, 3- ImproveStrength/[place] 1=Demonstrate adherence to instructed precautions during ADL tasks. 2=Patient will verbalize/demonstrate understanding of assistive dev ices/modifications for ADL. 3=Patient will improve strength/tolerance for activity to enable patient to perform ADL's. OT Education/Plan Problem List/Assessment Assessment: Decreased Activ Tolerance, Decreased UE Strength, Impaired Self- Care Skills Discharge Recommendations Plan/Recommendations: Continue POC Treatment Plan/Plan of Care Patient would benefit from OT for education, treatment and training to promote independence in ADL's, mobility, safety and/or upper extremity function for ADL's. Plan of Care: ADL Retraining, Functional Mobility, Group Exercise/Act as Ind, UE Funct Exercise/Act Treatment Duration: May 04, 2021 Frequency: At least 5 of 7 days/Wk (IRF) Estimated Hrs Per Day: 1.5 hours per day Agreement: Yes Rehab Potential: Fair Time/GCodes Start Time: 10:00 Stop Time: 11:00 Total Time Billed (hr/min): 60 Billed Treatment Time 1 visit-ADL 2 (30 min) FA 2 (30 min) ERIK DE LA GARZA Apr 11, 2021 10:55
--- NOTE | 2021-04-11 12:20 | Physical Therapy Daily Note ---
PT Daily Note-Current Subjective Pt sitting in recliner upon arrival. Pt agrees to PT. Pt reports SOA and wants to work on EX before walking since just getting back from OT tx. Pain Location: No Pain Reported Mental Status Patient Orientation: Person, Place, Time, Situation Attachments: Oxygen Transfers SCALE: Activities may be completed with or without assistive devices. 8-Rsdphqhlhm-snpwraj completes the activity by him/herself with no assistance from a helper. 5-Set-up or Clean-up Assistance-helper sets up or cleans up; patient completes activity. [place] assists only prior to or following the activity. 4-Supervision or Touching Assistance-helper provides verbal cues and/or touching/steadying and/or contact guard assistance as patient completes activity. Assistance may be provided throughout the activity or intermittently. 3-Partial/Moderate Assistance-helper does LESS THAN HALF the effort. [place] lifts, holds or supports trunk or limbs, but provides less than half the effort. 2-Substantial/Maximal Assistance-helper does MORE THAN HALF the effort. [place] lifts or holds trunk or limbs and provides more than half the effort. 6-Apzscgkos-qjjprg does ALL the effort. Patient does none of the effort to comp lete the activity. Or, the assistance of 2 or more helpers is required for the patient to complete the activity. If activity was not attempted, code reason: 7-Patient Refused. 9-Not Applicable-not attempted and the patient did not perform the activity before the current illness, exacerbation or injury. 10-Not Attempted due to Environmental Limitations-(lack of equipment, weather restraints, etc.). 88-Not Attempted due to Medical Conditions or Safety Concerns. Sit to Stand (QC): 5 Weight Bearing Full Weight Bearing Full Weight Bearing Gait Training Does the Patient Walk?: Yes Distance: 200', 150' Walk 10 feet (QC): 5 Walk 50 ft with 2 Turns(QC): 5 Walk 150 ft (QC): 5 Gait Persons Needed: 1 Gait Assistive Device: FWW Exercises Supine Ex: Ankle pumps, Quad Set, Glut sets, Heel Slides, Short Arc Quads, Straight leg raise, Hip abd/add Supine Reps: 10 Seated Therapy Exercises: Ankle pumps, Long arc quads, Hip flexion, Glut set Seated Reps: 10 Treatments Completes Supine & Seated Ex with RECOVERY ASSISTANT giving written HEP for both EX. Pt asks questions about how Weekly Mtg works and reports feeling better with Breathing Tx. TF to standing and amb. in hallway, RB as needed. Pt returns to room with all needs met, call light in hand. Assessment Current Status: Good Progress Pt is limited by discomfort & SOA at this time. PT Short Term Goals Short Term Goals Time Frame: Apr 16, 2021 Roll Left & Right: 6 Sit to lyin Lying to sitting on side of be: 6 Sit to stand: 4 Chair/kmz-rb-xuzmz transfer: 4 Walk 10 feet: 4 Walk 50 feet with two turns: 4 Walk 150 feet: 4 PT Machine Applicator Cementer Goals Machine Applicator Cementer Goals PT Machine Applicator Cementer Goals Time Frame: Apr 30, 2021 Roll Left & Right (QC): 6 Sit to Lying (QC): 6 Lying-Sitting on Side/Bed(QC): 6 Sit to Stand (QC): 5 Chair/Auc-ih-Lbxov Xfer(QC): 5 Toilet Transfer (QC): 5 Car Transfer (QC): 5 Does the Patient Walk: Yes Walk 10 feet (QC): 5 Walk 50ft with 2 Turns (QC): 5 Walk 150 ft (QC): 5 Walking 10ft on Uneven Surface: 5 1 Step (curb) (QC): 5 4 Steps (QC): 5 12 Steps (QC): 88 Picking up an Object (QC): 88 Wheel 50 feet with 2 turns (QC: 9 Wheel 150 feet: 9 PT Plan Problem List Problem List: Activity Tolerance, Functional Strength Treatment/Plan Treatment Plan: Continue Plan of Care Treatment Plan: Bed Mobility, Education, Functional Activity [place], Functional Strength, Gait, Safety, Therapeutic Exercise, Transfers Treatment Duration: Apr 30, 2021 Frequency: At least 5 of 7 days/Wk (IRF) Estimated Hrs Per Day: 1.5 hours per day Patient and/or Family Agrees t: Yes Safety Risks/Education Patient Education: Gait Training, Transfer Techniques, Correct Positioning Teaching Recipient: Patient Teaching Methods: Discussion Response to Teaching: Verbalize Understanding Time/GCodes Time In: 1100 Time Out: 1200 Total Billed Treatment Time: 60 Total Billed Treatment 1, FA (15m), EX x2 (25m) & GT (20m) PARKER LICEA RECOVERY ASSISTANT Apr 11, 2021 12:19
[2021-04-11] MEDS ORDERED: ERGO1250 PO (12:44)
--- NOTE | 2021-04-11 14:51 | Therapy Group Daily Note ---
Therapy Daily Group Note Patient Education Topic Other List Below (memory) Exercises LE Seated Exercise, UE Exercise Session Ratio (pt:therapist): 6:2 Goal of Session: Memory Strategies, UE/LE Strengthing Goal Met for this Session: Yes Pt Benefit of Group: Contributions to Others, F/U Use of Strategies @Home, Increased Functional Safety, Increased Functional Strength, Improved Cognition, Recognition of Peers, Socialization Other/Notes Pt ambulated using [facility]PT [facility]. Group consisted of introductions (name, place born, most trouble in childhood), socialization, seated B UE/LE exercises, memory activity and education on memory strategies. Pt introduced self appropriately and actively listened to peers. Pt able to complete B UE/LE seated exercises without difficulty, 1 set 10 reps of each. Pt acknowledged understanding of memory education and gave personal strategies for memory aides. Pt participated fully in memory activity and was able to complete 2 out 4 attempts. After therapy, pt lying in bed with call light/phone in reach. All needs met in room. Start Time: 13:00 Stop Time: 14:15 Total Billed Treatment Time: 75 Total Billed Treatment 1-GRP ERIK DE LA GARZA Apr 11, 2021 14:51
[2021-04-11 20:00] VITALS: BP 120/58
[2021-04-11] MEDS: PROMETHAZINE/ CODEINE SYRUP 5 ML UDC PO SCH (20:14)
[2021-04-11] MEDS: TAMSULOSIN 0.4 MG (FLOMAX) CAP PO SCH (20:14)
[2021-04-11] MEDS: LIDOCAINE PATCH REMOVAL TP SCH (20:18)
[2021-04-11] MEDS ORDERED: RT-ALBUTEROL/IPRATROPIUM 3 ML (DUONEB) VIAL INH SCH (21:00)
--- NOTE | 2021-04-12 06:10 | PM&R Progress Note ---
Subjective HPI/CC On Admission Date Seen by Provider: Apr 12, 2021 Time Seen by Provider: 11:30 Subjective/Events-last exam 04/12/2021: Moved to ICU 04/11/2021: Pt doing pretty well Pulmonology consult appreciated BiPAP will be set up tonight since it wasnt set up yesterday Bowels havent moved so giving laxatives Refusing Lovenox and SCDs Lungs are much improved on exam Discharge on 04/16/21 04/10/2021: Pt doing pretty well Upset about her home nebulizer medication restarted. Pharmacy will be in charge of that Pulmonology consult at noon today Hemoglobin 9.2 Pt very wheezy Refusing SCDs and Lovenox Bowels are moving well Review of Systems Pulmonary: Dyspnea Focused Exam Lactate Level 04/12/21 06:50: Lactic Acid Level 1.33 Objective Exam Vital Signs Vital Signs Date Time Temp Pulse Resp B/P (MAP) Pulse Ox O2 Delivery O2 Flow Rate FiO2 04/12/21 06:34 57 19 93 100.00 04/11/21 21:00 Nasal Cannula 04/11/21 20:00 36.2 120/58 (78) Capillary Refill : General Appearance: WD/WN, Anxious, Chronically ill, Moderate Distress HEENT: PERRL/EOMI, Normal ENT Inspection, Pharynx Normal Neck: Full Range of Motion, Normal Inspection, Non Tender, Supple, Carotid Bruit Respiratory: Chest Non Tender, No Respiratory Distress, Accessory Muscle Use (Subtle during conversation), Decreased Breath Sounds, Wheezing (Improved today) Cardiovascular: Regular Rate, Rhythm, No Edema, No Gallop, No JVD, No Murmur, Normal Peripheral Pulses Gastrointestinal: Normal Bowel Sounds, No Organomegaly, No Pulsatile Mass, Non Tender, Soft Back: Normal Inspection, No CVA Tenderness, No Vertebral Tenderness Extremity: Normal Capillary Refill, Normal Inspection, Normal Range of Motion, Non Tender, No Calf Tenderness, No Pedal Edema Neurologic/Psychiatric: Alert, Oriented x3, No Motor/Sensory Deficits, Normal Mood/Affect, Abnormal Gait, Depressed Affect, Motor Weakness (Generalized all extremities) Skin: Normal Color, Warm/Dry Lymphatic: No Adenopathy Results/Procedures Lab Laboratory Tests 04/12/21 06:50 Patient resulted labs reviewed. FIM Transfers Therapy Code Descriptions/Definitions Functional [place] Measure: 0=Not Assessed/NA 4=Minimal Assistance 1=Total Assistance 5=Supervision or Setup 2=Maximal Assistance 6=Modified [place] 3=Moderate Assistance 7=Complete IndependenceSCALE: Activities may be completed with or without assistive devices. 3-Hkgmtjwmgl-bvexfzr completes the activity by him/herself with no assistance from a helper. 5-Set-up or Clean-up Assistance-helper sets up or cleans up; patient completes activity. [place] assists only prior to or following the activity. 4-Supervision or Touching Assistance-helper provides verbal cues and/or touching/steadying and/or contact guard assistance as patient completes activity. Assistance may be provided throughout the activity or intermittently. 3-Partial/Moderate Assistance-helper does LESS THAN HALF the effort. [place] lifts, holds or supports trunk or limbs, but provides less than half the effort. 2-Substantial/Maximal Assistance-helper does MORE THAN HALF the effort. [place] lifts or holds trunk or limbs and provides more than half the effort. 4-Dqfhtfrsj-cepmhp does ALL the effort. Patient does none of the effort to complete the activity. Or, the assistance of 2 or more helpers is required for the patient to complete the activity. If activity was not attempted, code reason: 7-Patient Refused. 9-Not Applicable-not attempted and the patient did not perform the activity before the current illness, exacerbation or injury. 10-Not Attempted due to Environmental Limitations-(lack of equipment, weather restraints, etc.). 88-Not Attempted due to Medical Conditions or Safety Concerns. Roll Left to Right (QC): 6 Sit to Lying (QC): 4 Sit to Stand (QC): 5 Chair/Fvv-yl-Huyyc Xfer(QC): 4 Car Transfer (QC): 4 Gait Training Does the Patient Walk?: Yes Distance: 200', 150' Walk 10 feet (QC): 5 Walk 50 ft with 2 Turns(QC): 5 Walk 150 ft (QC): 5 Walking 10ft/uneven surface-QC: 4 Gait Persons Needed: 1 Gait Assistive Device: FWW Wheelchair Training Does the Pt Use a Wheelchair?: No Wheel 50 ft with 2 turns (QC): 9 Wheel 150 ft (QC): 9 Stair Training #of Steps: 1 1 Step (curb) (QC): 4 4 Steps (QC): 88 12 Steps (QC): 88 Balance Picking up an Object (QC): 88 ADL-Treatment Eating (QC): 5 (set up assist) Oral Hygiene (QC): 6 Shower/Bathe Self (QC): 4 Upper Body Dressing (QC): 5 Lower Body Dressing (QC): 3 On/Off Footwear (QC): 3 Toileting Hygiene (QC): 4 Toilet Transfer (QC): 4 Assessment/Plan Assessment and Plan Assess & Plan/Chief Complaint Assessment: Acute on chronic debility Multiple falls Severe right rib fractures multiple Acute exacerbation of COPD with bronchitis Active wheezing requiring IV steroids and oral antibiotics Current smoker Severe COPD Prednisone dependent Osteoporosis Hypothyroidism Chronic kidney disease Refusing Lovenox for DVT prophylaxis Plan: IV steroids Inpatient rehab protocol Nebulizer treatments Oxygen Refusing DVT prophylaxis 04/10/2021: Pulmonology consult appreciated Wheezing continues Monitor closely Home nebulizer machine meds to be restarted 04/11/2021: BiPAP set up Nebulizers IV steroids Antibiotics 04/12/2021: Moved to ICU (1) Debility (2) Immobility (3) Chronic respiratory failure with hypoxia Status: Chronic (4) Medication refused Status: Acute (5) Normocytic anemia Status: Acute (6) Multiple fractures of ribs, bilateral, initial encounter for closed fracture Status: Acute (7) ABHAY (acute kidney injury) Status: Acute (8) Tobacco abuse Status: Chronic (9) COPD (chronic obstructive pulmonary disease) Status: Chronic (10) Frequent falls Status: Acute (11) Dehydration Status: Acute CASTRO MOLINA DO Apr 12, 2021 06:10
[2021-04-12] MEDS: [UNRECOGNIZED DRUG - REMARK] IH SCH (06:39)
[2021-04-12 06:55] LABS: BASOPHILS % (AUTO) 0 % (0-10); EOSINOPHILS % (AUTO) 0 % (0-10); HEMATOCRIT 31 % (35-52); HEMOGLOBIN 9.6 g/dL (11.5-16.0); LYMPHOCYTES # (AUTO) 1.9 10^3/uL (1.0-4.0); LYMPHOCYTES % (AUTO) 14 % (12-44); MEAN CORPUSCULAR HEMOGLOBIN 30 pg (25-34); MEAN CORPUSCULAR HGB CONC 31 g/dL (32-36); MEAN CORPUSCULAR VOLUME 95 fL (80-99); MEAN PLATELET VOLUME 8.8 fL (9.0-12.2); MONOCYTES # (AUTO) 0.8 10^3/uL (0.0-1.0); MONOCYTES % (AUTO) 6 % (0-12); NEUTROPHILS # (AUTO) 10.1 10^3/uL (1.8-7.8); NEUTROPHILS % (AUTO) 77 % (42-75); PLATELET COUNT 320 10^3/uL (130-400); WHITE BLOOD COUNT 13.1 10^3/uL (4.3-11.0)
[2021-04-12 07:04] LABS: ALBUMIN 3.3 GM/DL (3.2-4.5); POTASSIUM 4.1 MMOL/L (3.6-5.0)
[2021-04-12 07:06] LABS: CALCIUM 9.6 MG/DL (8.5-10.1)
[2021-04-12 07:07] LABS: TOTAL PROTEIN 5.6 GM/DL (6.4-8.2)
[2021-04-12 07:09] LABS: BILIRUBIN,TOTAL 0.3 MG/DL (0.1-1.0)
[2021-04-12 07:10] LABS: CREATININE SERUM 1.11 MG/DL (0.60-1.30)
--- NOTE | 2021-04-12 07:16 | Diagnostic Imaging Report ---
INDICATION: Patient is on BiPAP, respiratory distress. Comparison with 12/10/2015. FINDINGS: Portable chest. There is obstructive interstitial lung disease. There is hazy appearance of the right lung base suggesting probable infiltrate as well. Heart is not enlarged. No pneumothorax. There is blunting of the right costophrenic angle consistent with small pleural effusion. IMPRESSION: Findings suggesting probable superimposed right lower lobe pneumonia with pleural effusion on chronic obstructive lung disease. Dictated by: Dictated on workstation # [id number]
[2021-04-12] MEDS ORDERED: THYR60TA2 PO (10:29)
--- NOTE | 2021-04-13 09:29 | Discharge Summary ---
Diagnosis/Chief Complaint Date of Admission Apr 09, 2021 at 13:00 Date of Discharge Discharge Diagnosis Assessment: Acute on chronic debility Multiple falls Severe right rib fractures multiple Acute exacerbation of COPD with bronchitis Active wheezing requiring IV steroids and oral antibiotics Current smoker Severe COPD Prednisone dependent Osteoporosis Hypothyroidism Chronic kidney disease Refusing Lovenox for DVT prophylaxis Plan: IV steroids Inpatient rehab protocol Nebulizer treatments Oxygen Refusing DVT prophylaxis 04/10/2021: Pulmonology consult appreciated Wheezing continues Monitor closely Home nebulizer machine meds to be restarted 04/11/2021: BiPAP set up Nebulizers IV steroids Antibiotics 04/12/2021: Moved to ICU (1) Debility (2) Immobility (3) Chronic respiratory failure with hypoxia Status: Chronic (4) Medication refused Status: Acute (5) Normocytic anemia Status: Acute (6) Multiple fractures of ribs, bilateral, initial encounter for closed fracture Status: Acute (7) ABHAY (acute kidney injury) Status: Acute (8) Tobacco abuse Status: Chronic (9) COPD (chronic obstructive pulmonary disease) Status: Chronic (10) Frequent falls Status: Acute (11) Dehydration Status: Acute Discharge Summary Discharge Physical Examination Allergies: Coded Allergies: nitrofurantoin (Verified Allergy, Severe, RASH, 12/10/15) ITCHING AND RASH sulfamethoxazole (Verified Allergy, Severe, RASH, 12/10/15) ITCHING AND RASH trimethoprim (Verified Allergy, Severe, RASH, 12/10/15) ITCHING AND RASH azithromycin (Verified Allergy, Unknown, 08/14/14) cefixime (Verified Allergy, Unknown, 08/14/14) Vitals & I&Os Vital Signs Date Time Temp Pulse Resp B/P (MAP) Pulse Ox O2 Delivery O2 Flow Rate FiO2 04/12/21 06:34 57 19 93 100.00 04/11/21 21:00 Nasal Cannula 04/11/21 20:00 36.2 120/58 (78) General Appearance: Alert, Oriented X3, Cooperative Respiratory: Other (wheezing) Hospital Course Was the Problem List Reviewed?: Yes Hospital course: Patient had an uneventful hospital course although short until she started having more difficulty respiratory willard even though she was on IV steroids and oral antibiotics for bacterial bronchitis. She was able to participate in therapy but she started declining with low oxygen levels and the decision was made to send up to the ICU and return back within 3 days but she appeared to have declined and the decision was made to close at the rehab account. Labs (last 24 hrs) Laboratory Tests 04/10/21 05:05: White Blood Count 7.5, Red Blood Count 3.08L, Hemoglobin 9.2L, Hematocrit 30L, Mean Corpuscular Volume 96, Mean Corpuscular Hemoglobin 30, Mean Corpuscular Hemoglobin Concent 31L, Red Cell Distribution Width 14.9H, Platelet Count 287, Mean Platelet Volume 8.9L, Immature Granulocyte % (Auto) 2, Neutrophils (%) (Auto) 85H, Lymphocytes (%) (Auto) 10L, Monocytes (%) (Auto) 2, Eosinophils (%) (Auto) 0, Basophils (%) (Auto) 0, Neutrophils # (Auto) 6.4, Lymphocytes # (Auto) 0.8L, Monocytes # (Auto) 0.2, Eosinophils # (Auto) 0.0, Basophils # (Auto) 0.0, Immature Granulocyte # (Auto) 0.2H, Sodium Level 137, Potassium Level 4.2, Chloride Level 101, Carbon Dioxide Level 27, Anion Gap 9, Blood Urea Nitrogen 13, Creatinine 0.95, Estimat Glomerular Filtration Rate 58, BUN/Creatinine Ratio 14, Glucose Level 127H, Calcium Level 8.5, Corrected Calcium 9.5, Total Bilirubin 0.2, Aspartate Amino Transf (AST/SGOT) 21, Alanine Aminotransferase (ALT/SGPT) 19, Alkaline Phosphatase 39L, Total Protein 5.1L, Albumin 2.7L 04/12/21 06:50: White Blood Count 13.1H, Red Blood Count 3.22L, Hemoglobin 9.6L, Hematocrit 31L, Mean Corpuscular Volume 95, Mean Corpuscular Hemoglobin 30, Mean Corpuscular Hemoglobin Concent 31L, Red Cell Distribution Width 15.1H, Platelet Count 320, Mean Platelet Volume 8.8L, Immature Granulocyte % (Auto) 2, Neutrophils (%) (Auto) 77H, Lymphocytes (%) (Auto) 14, Monocytes (%) (Auto) 6, Eosinophils (%) (Auto) 0, Basophils (%) (Auto) 0, Neutrophils # (Auto) 10.1H, Lymphocytes # (Auto) 1.9, Monocytes # (Auto) 0.8, Eosinophils # (Auto) 0.0, Basophils # (Auto) 0.0, Immature Granulocyte # (Auto) 0.3H, Sodium Level 136, Potassium Level 4.1, Chloride Level 95L, Carbon Dioxide Level 31, Anion Gap 10, Blood Urea Nitrogen 22H, Creatinine 1.11, Estimat Glomerular Filtration Rate 48, BUN/Creatinine Ratio 20, Glucose Level 102, Calcium Level 9.6, Corrected Calcium 10.2H, Total B ilirubin 0.3, Aspartate Amino Transf (AST/SGOT) 17, Alanine Aminotransferase (ALT/SGPT) 19, Alkaline Phosphatase 42, Total Protein 5.6L, Albumin 3.3, D-Dimer 2.18H, Lactic Acid Level 1.33, Troponin I 0.035H, B-Type Natriuretic Peptide 548.3H, Procalcitonin 0.03 Pending Labs Laboratory Tests 04/10/21 05:05: White Blood Count 7.5, Red Blood Count 3.08, Hemoglobin 9.2, Hematocrit 30, Mean Corpuscular Volume 96, Mean Corpuscular Hemoglobin 30, Mean Corpuscular Hemoglobin Concent 31, Red Cell Distribution Width 14.9, Platelet Count 287, Mean Platelet Volume 8.9, Immature Granulocyte % (Auto) 2, Neutrophils (%) (Auto) 85, Lymphocytes (%) (Auto) 10, Monocytes (%) (Auto) 2, Eosinophils (%) (Auto) 0, Basophils (%) (Auto) 0, Neutrophils # (Auto) 6.4, Lymphocytes # (Auto) 0.8, Monocytes # (Auto) 0.2, Eosinophils # (Auto) 0.0, Basophils # (Auto) 0.0, Immature Granulocyte # (Auto) 0.2, Sodium Level 137, Potassium Level 4.2, Chloride Level 101, Carbon Dioxide Level 27, Anion Gap 9, Blood Urea Nitrogen 13, Creatinine 0.95, Estimat Glomerular Filtration Rate 58, BUN/Creatinine Ratio 14, Glucose Level 127, Calcium Level 8.5, Corrected Calcium 9.5, Total Bilirubin 0.2, Aspartate Amino Transf (AST/SGOT) 21, Alanine Aminotransferase (ALT/SGPT) 19, Alkaline Phosphatase 39, Total Protein 5.1, Albumin 2.7 04/12/21 06:50: White Blood Count 13.1, Red Blood Count 3.22, Hemoglobin 9.6, Hematocrit 31, Mean Corpuscular Volume 95, Mean Corpuscular Hemoglobin 30, Mean Corpuscular Hemoglobin Concent 31, Red Cell Distribution Width 15.1, Platelet Count 320, Mean Platelet Volume 8.8, Immature Granulocyte % (Auto) 2, Neutrophils (%) (Auto) 77, Lymphocytes (%) (Auto) 14, Monocytes (%) (Auto) 6, Eosinophils (%) (Auto) 0, Basophils (%) (Auto) 0, Neutrophils # (Auto) 10.1, Lymphocytes # (Auto) 1.9, Monocytes # (Auto) 0.8, Eosinophils # (Auto) 0.0, Basophils # (Auto) 0.0, Immature Granulocyte # (Auto) 0.3, Sodium Level 136, Potassium Level 4.1, Chloride Level 95, Carbon Dioxide Level 31, Anion Gap 10, Blood Urea Nitrogen 22, Creatinine 1.11, Estimat Glomerular Filtration Rate 48, BUN/Creatinine Ratio 20, Glucose Level 102, Calcium Level 9.6, Corrected Calcium 10.2, Total Bilirubin 0.3, Aspartate Amino Transf (AST/SGOT) 17, Alanine Aminotransferase (ALT/SGPT) 19, Alkaline Phosphatase 42, Total Protein 5.6, Albumin 3.3, D-Dimer 2.18, Lactic Acid Level 1.33, Troponin I 0.035, B-Type Natriuretic Peptide 548.3, Procalcitonin 0.03 Discharge Home Medications: Active Scripts Active Reported [place] Thyroid (Thyroid,Pork) 60 Mg Tablet 90 Mg PO DAILY TAKES 1 & (60MG) TABS Vitamin D2 (Ergocalciferol (Vitamin D2)) 1,250 Mcg Capsule 1,250 Mcg PO FRIDAY Hydrocodone-Acetamin 10-325 mg (Hydrocodone/Acetaminophen) 1 Each Tablet 1 Each PO Q6H PRN Rhinocort Allergy (Budesonide) 8.43 Ml [place].pump 2 Sprays NS DAILY [place] with Iron Tab Chew (Pedi Mv No.79/Ferrous Fumarate) 18 Mg Tab.chew 18 Mg PO DAILY Prednisone 5 Mg Tablet 10 Mg PO DAILY TAKES 2 (5MG) TABLETS Citalopram HBr (Citalopram Hydrobromide) 20 Mg Tablet 20 Mg PO HS Promethazine-Codeine Solution (Promethazine HCl/Codeine) 473 Ml Syrup 5 Ml PO HS Propranolol HCl ER (Propranolol HCl) 120 Mg Cap.sa.24h 120 Mg PO DAILY LAST FILLED 01-26-2021 #30/30 DAY SUPPLY Chlorhexidine Gluconate 473 Ml Mouthwash 15 Ml PO BID TAKES AFTER BREATHING TREATMENTS Proair Hfa (Albuterol Sulfate) 1 Puff Puff 2 Puff IH Q4H PRN Zyrtec (Cetirizine HCl) 10 Mg Tablet 10 Mg PO DAILY Flomax (Tamsulosin HCl) 0.4 Mg Cap 0.4 Mg PO HS Perforomist (Formoterol Fumarate) 20 Mcg/2 Ml Vial.neb 20 Mcg IH BID Ipratropium [place] 0.2 Mg/1 Ml Solution 0.2 Mg IH TID PRN Lasix (Furosemide) 40 Mg Tablet 40 Mg PO DAILY Potassium Chloride 10 Meq Tab.er.prt 10 Meq PO DAILY Vitamin D3 (Cholecalciferol (Vitamin D3)) 50 Mcg Capsule 50 Mcg PO DAILY Calcium (Calcium Carbonate) 600 Mg Tablet 1,200 Mg PO DAILY Spironolactone 25 Mg Tablet 25 Mg PO DAILY Aspirin 81 Mg Tab.chew 81 Mg PO DAILY Instructions to patient/family Please see electronic discharge instructions given to patient. Diagnosis/Problems Diagnosis/Problems (1) Debility (2) Immobility (3) Chronic respiratory failure with hypoxia Status: Chronic (4) Medication refused Status: Acute (5) Normocytic anemia Status: Acute (6) Multiple fractures of ribs, bilateral, initial encounter for closed fracture Status: Acute (7) ABHAY (acute kidney injury) Status: Acute (8) Tobacco abuse Status: Chronic (9) COPD (chronic obstructive pulmonary disease) Status: Chronic (10) Frequent falls Status: Acute (11) Dehydration Status: Acute CASTRO MOLINA DO Apr 13, 2021 09:29
--- NOTE | 2021-04-13 14:25 | Therapy Team Discharge Summary ---
Therapy Discharge Summary Discharge Recommendations Date of Discharge Apr 12, 2021 at 06:58 Occupational Therapy Pt admitted to ARU with debility. At OF, pt had assistance with functional m obility using FWW. Her assisted her around the house and into bathroom. Pt indicates she was IND with toileting and showering, but required assistance with LE dressing. Upon initial evaluation, pt required set up assistance with eating, CGA showering, set up upper body dressing, min A lower body dressing, mod A footwear and CGA toileting. OT txs focused on increasing safety and independence with ADLS and functional mobility and increasing BUE strength and activity tolerance. Pt transferred to ICU due to c/o SOB with O2 sat at 77% (O2 level increased but sats didn't improve greater than 82%). Pt met LTG of being independent with oral care, but did not attain any other goals due to short stay. Pt transferred off of unit to higher level of care, discharge from OT. Decreased Activ Tolerance, Decreased UE Strength, Impaired Self-Care Skills PT Server Software Engineer Goals Server Software Engineer Goals PT Mcfp Goals Time Frame: Apr 30, 2021 Roll Left to Right (QC): 6 Sit to Lying (QC): 6 Lying-Sitting on Side/Bed(QC): 6 Sit to Stand (QC): 5 Chair/Nob-ao-Ljcrg Xfer(QC): 5 Car Transfer (QC): 5 Does the Patient Walk: Yes Walk 10 feet (QC): 5 Walk 10ft-Uneven Surface(QC): 5 Walk 50ft with 2 Turns (QC): 5 Walk 150 ft (QC): 5 Wheel 50 feet with 2 turns (QC: 9 1 Step (curb) (QC): 5 4 Steps (QC): 5 12 Steps (QC): 88 Picking up an Object (QC): 88 OT Mcfp Goals Server Software Engineer Goals Time Frame: May 04, 2021 Eating (QC): 6 (not met) Oral Hygiene (QC): 6 (met) Shower/Bathe Self (QC): 6 (not met) Upper Body Dressing (QC): 6 Lower Body Dressing (QC): 6 (not met) On/Off Footwear (QC): 6 (not met) Toileting Hygiene (QC): 6 (not met) Toilet/Commode Transfer (QC): 5 (not met) Additional Goals: 1-Demonstrate ADL Tasks, 2-Verbalize Understanding, 3- ImproveStrength/[place] 1=Demonstrate adherence to instructed precautions during ADL tasks. 2=Patient will verbalize/demonstrate understanding of assistive devices/modifications for ADL. 3=Patient will improve strength/tolerance for activity to enable patient to perform ADL's. SRINIVASAN LANGE OT Apr 13, 2021 14:25
--- NOTE | 2021-04-13 14:26 | Therapy Team Discharge Summary ---
Therapy Discharge Summary Discharge Recommendations Date of Discharge Apr 12, 2021 at 06:58 Physical Therapy Patient came to rehab with debility. Upon evaluation patient performed bed mobility and supine <-> sit with independence, sit <-> stand min assist, transfers CGA, toilet transfer min assist, car transfer CGA, ambulated 100' with a rolling walker with CGA (including 50' with at least 2 turns of 90 degrees and 10' over an uneven surface), and could go up and down 1 step using a rolling walker with CGA. Patient has been performing bed mobility and transfer traini ng, balance and endurance training, functional strengthening, gait training, and education. Patient ended up having to go to ICU due to respiratory issues. Her ending quality codes were not able to be obtained. Patient will be discharged from PT at this time. Occupational Therapy Decreased Activ Tolerance, Decreased UE Strength, Impaired Self-Care Skills PT Window Framer Goals Window Framer Goals PT Window Framer Goals Time Frame: Apr 30, 2021 Roll Left to Right (QC): 6 Sit to Lying (QC): 6 Lying-Sitting on Side/Bed(QC): 6 Sit to Stand (QC): 5 Chair/Ehu-hw-Vqari Xfer(QC): 5 Car Transfer (QC): 5 Does the Patient Walk: Yes Walk 10 feet (QC): 5 Walk 10ft-Uneven Surface(QC): 5 Walk 50ft with 2 Turns (QC): 5 Walk 150 ft (QC): 5 Wheel 50 feet with 2 turns (QC: 9 1 Step (curb) (QC): 5 4 Steps (QC): 5 12 Steps (QC): 88 Picking up an Object (QC): 88 OT Window Framer Goals Intermediate Goals Time Frame: May 04, 2021 Eating (QC): 6 Oral Hygiene (QC): 6 Shower/Bathe Self (QC): 6 Upper Body Dressing (QC): 6 Lower Body Dressing (QC): 6 On/Off Footwear (QC): 6 Toileting Hygiene (QC): 6 Toilet/Commode Transfer (QC): 5 Additional Goals: 1-Demonstrate ADL Tasks, 2-Verbalize Understanding, 3- ImproveStrength/Kaleigh 1=Demonstrate adherence to instructed precautions during ADL tasks. 2=Patient will verbalize/demonstrate understanding of assistive devices/modifications for ADL. 3=Patient will improve strength/tolerance for activity to enable patient to perform ADL's. SONG LEACH PT Apr 13, 2021 14:26
[2021-04-15] MEDS ORDERED: VITAMIN D2 1.25 MG (50,000 UNITS) CAP PO SCH (09:00)
== END 2021-04-12 06:58 | disposition short-term general hospital (02) | DRG 560 ==
PROVIDERS: ADMIT Internal Medicine; ATTEND Internal Medicine
DX: S22.41XD Multiple fractures of ribs, right side, subsequent encounter for fracture with routine healing (principal); J44.1 Chronic obstructive pulmonary disease with (acute) exacerbation; J96.11 Chronic respiratory failure with hypoxia; N17.9 Acute kidney failure, unspecified; Z91.81 History of falling; N18.9 Chronic kidney disease, unspecified; F17.210 Nicotine dependence, cigarettes, uncomplicated; E03.9 Hypothyroidism, unspecified; F41.9 Anxiety disorder, unspecified; F32.9 Major depressive disorder, single episode, unspecified; M81.0 Age-related osteoporosis without current pathological fracture; Z99.81 Dependence on supplemental oxygen; Z79.82 Long term (current) use of aspirin; Z79.52 Long term (current) use of systemic steroids; Z88.1 Allergy status to other antibiotic agents; Z88.2 Allergy status to sulfonamides; W19.XXXD Unspecified fall, subsequent encounter; Z74.09 Other reduced mobility; R53.81 Other malaise; D64.9 Anemia, unspecified; E86.0 Dehydration; Z79.899 Other long term (current) drug therapy
CPT/HCPCS: 36415; 71045; 80053; 83605; 83880; 84145; 84484; 85025; 85379; 94640; 94660; 94760

== ENCOUNTER 2021-04-18 11:59 | Inpatient (IN) | payer MEDICARE ==
[~2021-04-18] VITALS: Ht 160 cm; Wt 61.7 kg
[~2021-04-18 11:59] MED LIST changes: +ACETAMINOPHEN 325 MG TABLET PO PRN; +ANTACID SUSP 30 ML UDC (MYLANTA) PO PRN; +BISACODYL 10 MG SUPP (DULCOLAX) PR PRN; +BUDE8.43 NS; +CALCIUM CARBONATE 500 MG (TUMS) TAB.CHEW PO PRN; +CHOL12502 PO; +CITA20TA9 PO; +DOCUSATE SODIUM 100 MG (COLACE) CAP PO PRN; +ENOXAPARIN 60 MG/0.6 ML (LOVENOX) SYR SC SCH; +ERGO1250 PO; +FLEET ENEMA ADULT 1 EA BTL PR PRN; +HYDR-3820 PO; +LOPERAMIDE 2 MG (IMODIUM) TABLET PO PRN; +LORazepam INJ 2 MG/ML (ATIVAN) VIAL IVP PRN; +MELATONIN 3 MG TABLET PO PRN; +NFCHLORHGL PO; +NS IV 500 ML 500 ML IV SCH; +NYST1000 PO; +ONDANSETRON 4 MG (ZOFRAN) ORAL DISSOLVE TAB PO PRN; +ONDANSETRON 4 MG/2 ML (SDV) Z0FRAN IV PRN; +PEDI18TA2 PO; +PRED5TAB PO; +PROM473S9 PO; +PROP120C3 PO; +RT-ALBUTEROL SULF 2.5 MG/3 ML PRE-MIX VIAL IH PRN; +RT-IPRATROPIUM (ATROVENT) 0.5MG/2.5ML AMP IH PRN; +diphenhydrAMINE 25 MG TAB (BENADRYL) PO PRN; +fentaNYL INJ 100 MCG/2 ML AMP IV PRN; +guaiFENesin/CODEINE (ROBITUSSIN AC) 10ML UDC PO PRN; +morphine INJ 10 MG/ML 1ML (SYR OR VIAL) IVP PRN; +polyethylene glycoL POWDER 17 GM (MIRALAX) PACK PO PRN
--- NOTE | 2021-04-18 13:22 | Occupational Therapy Eval ---
OT Evaluation-General/PLF Medical Diagnosis Admission Date Apr 18, 2021 at 11:59 Medical Diagnosis: Weakness/ debility Onset Date: Apr 06, 2021 Therapy Diagnosis Therapy Diagnosis: Decreased ADL status Height/Weight Height (Feet): 5 Height (Inches): 3.00 Weight (Pounds): 110 Weight (Ounces): 0.0 Referral Physician: Balwinder Referral Reason: Activity Tolerance, Self Care, Evaluation/Treatment, Strengthening/ROM Medical History Pertinent Medical History: COPD, Smoking Additional Medical History COPD, frequent falls, weakness/ debility Current History ED due to multiple falls over last several days April 06. Pt has multiple rib fx, ABHAY, COPD exasperation. Pt admits to ARU, transfer to ICU 04/12 2* to SOB and 82% 02 levels. Reviewed History: Yes Social History Home: Single Level Current Living Status: Spouse Entry Into Home: Stairs With Railing Steps Into Home: 4 ADL-Prior Level of Function SCALE: Activities may be completed with or without assistive devices. 6-Dnfckuwsrw-kasubhi completes the activity by him/herself with no assistance from a helper. 5-Set-up or Clean-up Assistance-helper sets up or cleans up; patient completes activity. [place] assists only prior to or following the activity. 4-Supervision or Touching Assistance-helper provides verbal cues and/or t ouching/steadying and/or contact guard assistance as patient completes activity. Assistance may be provided throughout the activity or intermittently. 3-Partial/Moderate Assistance-helper does LESS THAN HALF the effort. [place] lifts, holds or supports trunk or limbs, but provides less than half the effort. 2-Substantial/Maximal Assistance-helper does MORE THAN HALF the effort. [place] lifts or holds trunk or limbs and provides more than half the effort. 3-Xnpmvsmhy-ttyosv does ALL the effort. Patient does none of the effort to complete the activity. Or, the assistance of 2 or more helpers is required for the patient to complete the activity. If activity was not attempted, code reason: 7-Patient Refused. 9-Not Applicable-not attempted and the patient did not perform the activity before the current illness, exacerbation or injury. 10-Not Attempted due to Environmental Limitations-(lack of equipment, weather restraints, etc.). 88-Not Attempted due to Medical Conditions or Safety Concerns. ADL PLOF Comments IND PLOF though required min A with LB dressing PLOF Self Care: Needed Some Help Functional Cognition: Independent DME/Equipment: Bath Chair, Tub/Shower DME/Equipment Comments bc, tub/shower Occupation: retired Drive Self: No OT Current Status Subjective Pt AxO, present. Pt upright in recliner with BLE elevated. Pt agrees to tx. OT evaluation: 0206-7492 (10) PT evaluation: 2331-3029 (10) OT/ PT co-treat: 3334-3520 (15) with OT addressing ADLs, home environment, AE/ AD etc and PT addressing fx endurance, LE movement, balance/ transfers, etc. Mental Status/Objective Patient Orientation: Person, Place, Situation, Normal For Age Attachments: Oxygen Current Glasses/Contacts: Yes Hearing Aids: No Dentures/Partials: No Hand Dominance: Right Upper Extremity ROM WFL BUE, excluding RUE wrist (decreased wrist flexion due to edema/ bruising/ pain, PROM WFL) Upper Extremity Coordination WFL BUE Upper Extremity Sensation WFL BUE Upper Extremity Strength Decreased BUE (3+/5) Edema: BLE (10+ sec pitting), pain ADL-Treatment Eating (QC): 5 (s/u and assist with cutting tasks due to R hand weakness (pt is bruised from hand to shoulder)) Oral Hygiene (QC): 6 (IND in chair per clinical judgment) Shower/Bathe Self (QC): 3 (min A 2* to LB per clinical judgment) Upper Body Dressing (QC): 5 (s/u per clinical judgment) Lower Body Dressing (QC): 3 (Mod A (pt threads RLE, requires assist with threading LLE and completes pulling over hips with min A.) On/Off Footwear (QC): 1 (TD increased pain.) Toileting Hygiene (QC): 3 (min A for thoroughness.) Other Treatments Pt requires cues for initiation of tasks. Pt MMT/ ROM and home screening. Pt and OT discuss use of TTB and HHOT post SNF setting. Pt agrees. Dons briefs over BLE as outlined. Pt sit to stand with PT assist (see PT notes for A level). Ambulates with FWW to commode over toilet. Pt requires A to pull down/ pull up pants. Butt paste applied to coccyx per pt request. Returns to chair CGA, LEs elevated (BLE swelling pitting 10+ sec). Pt educated on OT/ PT role and SWB status. Pt will benefit from OT to address functional ambulation/ activity tolerance, UE strength, ADLs and IADLs and adaptive techniques to continue to increase functional IND. Education OT Patient Education: Correct positioning, Modified ADL techniques, Progress toward Goal/Update tx plan, Purpose of tx/functional activities, Safety issues, Transfer techniques Teaching Recipient: Patient Teaching Methods: Demonstration, Discussion Response to Teaching: Verbalize Understanding, Return Demonstration, Reinforcement Needed OT Intermediate Goals Manager Field Investigations Goals Time Frame: May 02, 2021 Eating (QC): 6 Oral Hygiene (QC): 6 Toileting Hygiene (QC): 4 Shower/Bathe Self (QC): 4 Upper Body Dressing (QC): 5 Lower Body Dressing (QC): 4 On/Off Footwear (QC): 4 Additional Goals: 1-Demonstrate ADL Tasks, 2-Verbalize Understanding, 3-ImproveStrength/[place] 1=Demonstrate adherence to instructed precautions during ADL tasks. 2=Patient will verbalize/demonstrate understanding of assistive devices/modifications for ADL. 3=Patient will improve strength/tolerance for activity to enable patient to perform ADL's. OT Education/Plan Problem List/Assessment Assessment: Decreased Activ Tolerance, Decreased UE Strength, Dependent Transfers, Edema, Impaired Bed Mobility, Impaired Coordination, Impaired Funct Balance, Impaired I ADL's, Impaired Self-Care Skills, Restricted Funct UE ROM Discharge Recommendations Plan/Recommendations: Continue POC Therapy Discharge Recommendati: 24 Hour Supervision, Post Acute OT Equpiment Recommendations-D/C: Extended Bath Bench, Hip Kit Treatment Plan/Plan of Care Treatment,Training & Education: Yes Patient would benefit from OT for education, treatment and training to promote independence in ADL's, mobility, safety and/or upper extremity function for ADL's. Plan of Care: ADL Retraining, Caregiver Training, Functional Mobility, UE Funct Exercise/Act, W/C Management Training Treatment Duration: May 02, 2021 Frequency: 5 times per week Estimated Hrs Per Day: .25 hour per day Agreement: Yes Rehab Potential: Fair Time/GCodes Start Time: 12:38 (1258) Stop Time: 12:48 (1313) Total Time Billed (hr/min): 25 Billed Treatment Time OT evaluation: 1603-7060 (10) PT evaluation: 7737-3601 (10)-- uncharged time. OT/ PT co-treat: 3061-8902 (15) with OT addressing ADLs, home environment, AE/ AD etc and PT addressing fx endurance, LE movement, balance/ transfers, etc. 1, EVM (10), ADL (15)= 25 RENETTA HERNANDEZ OTR Apr 18, 2021 13:22
[2021-04-18] MEDS ORDERED: FUROSEMIDE 40 MG/4 ML INJ (LASIX) IVP ONE (13:45)
--- NOTE | 2021-04-18 14:09 | Physical Therapy Evaluation ---
PT Evaluation-General Medical Diagnosis Admission Date Apr 18, 2021 at 11:59 Medical Diagnosis: Weakness/ debility Onset Date: Apr 06, 2021 Therapy Diagnosis Therapy Diagnosis: impaired mobility, strength, endurance Height/Weight Height (Feet): 5 Height (Inches): 3.00 Weight (Pounds): 110 Weight (Ounces): 0.0 Referral Physician: Balwinder Reason for Referral: Evaluation/Treatment Medical History Pertinent Medical History: COPD, Smoking Additional Medical History rib fractures from falls at home Reviewed History: Yes Social History Home: Single Level Current Living Status: Spouse Entry Into Home: Stairs With Railing PT Steps Into Home: 4 Prior Prior Level of Function SCALE: Activities may be completed with or without assistive devices. 2-Ngytkzjjvp-vmdxfbs completes the activity by him/herself with no assistance from a helper. 5-Set-up or Clean-up Assistance-helper sets up or cleans up; patient completes activity. [place] assists only prior to or following the activity. 4-Supervision or Touching Assistance-helper provides verbal cues and/or touching/steadying and/or contact guard assistance as patient completes activity. Assistance may be provided throughout the activity or intermittently. 3-Partial/Moderate Assistance-helper does LESS THAN HALF the effort. [place] lifts, holds or supports trunk or limbs, but provides less than half the effort. 2-Substantial/Maximal Assistance-helper does MORE THAN HALF the effort. [place] lifts or holds trunk or limbs and provides more than half the effort. 7-Irqsxmwiw-raupeh does ALL the effort. Patient does none of the effort to complete the activity. Or, the assistance of 2 or more helpers is required for the patient to complete the activity. If activity was not attempted, code reason: 7-Patient Refused. 9-Not Applicable-not attempted and the patient did not perform the activity before the current illness, exacerbation or injury. 10-Not Attempted due to Environmental Limitations-(lack of equipment, weather restraints, etc.). 88-Not Attempted due to Medical Conditions or Safety Concerns. Bed Mobility: 6 Transfers (B,C,W/C): 6 Gait: 6 Stairs: 6 Indoor Mobility (Ambulation): Independent Stairs: Independent PT Evaluation-Current Subjective Patient in recliner pre tx, agrees to PT, has unrated pain in legs (says it is pretty bad) Pt/Family Goals "to get stronger" Objective Patient Orientation: Person, Place, Situation Attachments: Oxygen, IV ROM/Strength ROM Lower Extremities WNL Strength Lower Extremities LLE (hip flexion 3/5, knee flexion 3+/5, knee extension 4-/5, dorsiflexion 3/5), RLE (hip flexion 3/5, knee flexion 3+/5, knee extension 4-/5, dorsiflexion 3/5) Sensory Hearing: Functional Hand Dominance: Right Sensation Right Lower Extremit: Intact Sensation Left Lower Extremity: Intact Transfers Roll Left & Right (QC): 7 Sit to Lying (QC): 7 Lying to Sitting/Side of Bed(Q: 7 Sit to Stand (QC): 3 Chair/Rek-ah-Zvhrl Xfer(QC): 3 Toilet Transfer (QC): 3 Car Transfer (QC): 9 Patient refused to get into and out of bed. She stands with min/mod assist and performs transfers with min assist, cues for hand placement and positioning Gait Does the Patient Walk?: Yes Mode of Locomotion: Walk Anticipated Mode of Locomotion: Walk Walk 10 feet (QC): 4 Walk 50 ft with 2 Turns(QC): 88 Walk 150 ft (QC): 88 Walking 10ft/uneven surface-QC: 88 Distance: 15'x2 Gait Assistive Device: FWW Comments/Gait Description Patient ambulates slowly, unsteady but no vaughn LOB, she gets very SOB after just walking 15', she recovers fairly quickly after sitting and having a short rest with purse lip breathing. Patient ambulates to the restroom and sits on toilet, she is able to get her brief on/off herself and wipe herself (OT helps with this). Wheelchair Training Wheel 50 ft with 2 turns (QC): 9 Wheel 150 ft (QC): 9 Stairs 1 Step (curb) (QC): 88 4 Steps (QC): 88 12 Steps (QC): 88 Balance Sitting Static: Fair Sitting Dynamic: Fair Standing Static: Poor Standing Dynamic: Poor Picking up an Object (QC): 88 Treatment BLE seated exercise x20 (AP, LAQ) Assessment/Needs Patient in recliner post tx with nurse call, phone, tray, all needs met, legs elevated and on pillows with heel float. Patient has impaired mobility, strength, endurance. She is unsteady with ambulation and can only ambulate short distances. Rehab Potential: Fair PT Mechanical Fitter Goals Longterm Goals PT Mechanical Fitter Goals Time Frame: May 02, 2021 Roll Left & Right (QC): 6 Sit to Lying (QC): 4 Lying-Sitting on Side/Bed(QC): 4 Sit to Stand (QC): 4 Chair/Gkl-zd-Unhat Xfer(QC): 4 Toilet Transfer (QC): 4 Car Transfer (QC): 4 Does the Patient Walk: Yes Walk 10 feet (QC): 4 Walk 50ft with 2 Turns (QC): 4 Walk 150 ft (QC): 88 Walking 10ft on Uneven Surface: 88 1 Step (curb) (QC): 3 4 Steps (QC): 3 12 Steps (QC): 88 Picking up an Object (QC): 88 Wheel 50 feet with 2 turns (QC: 9 Wheel 150 feet: 9 PT Plan Problem List Problem List: Activity Tolerance, Functional Strength, Safety, Balance, Gait, Transfer, Bed Mobility, ROM Treatment/Plan Treatment Plan: Continue Plan of Care Treatment Plan: Bed Mobility, Education, Functional Activity [place], Functional Strength, Gait, Safety, Therapeutic Exercise, Transfers Treatment Duration: May 02, 2021 Frequency: 6 times per week Estimated Hrs Per Day: .25 hour per day Patient and/or Family Agrees t: Yes Safety Risks/Education Patient Education: Gait Training, Transfer Techniques, Correct Positioning, Safety Issues Teaching Recipient: Patient Teaching Methods: Demonstration, Discussion Response to Teaching: Reinforcement Needed Discharge Recommendations Plan Patient will perform bed mobility and transfer training, balance and endurance training, functional strengthening, stair training, gait training, and education, to improve functional mobility and independence at home. Therapy Discharge Recommendati: Scheduled Assistance, Home & Family, Post Acute PT Time/GCodes Time In: 1248 Time Out: 1313 Total Billed Treatment Time: 25 Total Billed Treatment 1 visit TRES 10' FA 15' SONG LEACH PT Apr 18, 2021 14:09
[2021-04-18] MEDS: AUGMENTIN 500 MG TAB (AMOXICILLIN/CLAVULANATE) PO SCH (17:16)
[2021-04-18 17:50] VITALS: BP 128/73
[2021-04-18] MEDS: RT-ALBUTEROL/IPRATROPIUM 3 ML (DUONEB) VIAL INH SCH (18:36)
--- NOTE | 2021-04-18 18:46 | CONSULTATION REPORT ---
DATE OF SERVICE: 04/18/2021 ADMITTING PHYSICIAN: Dr. Lopez. HISTORY OF PRESENT ILLNESS: The patient is a 76-year-old female, who was admitted acute bed status on 04/12/2021. She was moved from inpatient rehabilitation to the ICU due to hypoxia with a pulse oxygenation of 82% on BiPAP. The patient had an uneventful rehabilitation course and was there after a same level fall and rib fractures. She does have a multitude of medical problems including COPD and is oxygen dependent at home and also does take prednisone. She was admitted to the ICU for exacerbation of COPD. Since that time, she has improved with medical management; however, she has had significant anemia. On initial admission, her hemoglobin was 9.1; however, over several days, she has had a decreasing hemoglobin to where it 7.0 today with a hematocrit of 22. We had done a previous endoscopy before in the past. We had done a colonoscopy on her on 11/10/2019 and she was found to have chronic stage II external and internal hemorrhoids as well as a moderate sigmoid diverticulosis and a small hyperplastic polyp of the ascending colon. PAST MEDICAL HISTORY: COPD, history of pneumonia, hypertension, migraine headaches, osteoporosis, degenerative joint disease, anxiety. PAST SURGICAL HISTORY: Thyroidectomy, breast biopsy, orthopedic procedure. ALLERGIES: NITROFURANTOIN, BACTRIM, AZITHROMYCIN. MEDICATIONS: Albuterol inhaler 1 puff q.4 hours p.r.n., aspirin 81 mg daily, budesonide 2 sprays daily, cetirizine 10 mg daily, citalopram 25 mg daily, formoterol 20 mcg nebulizer b.i.d., furosemide 40 mg daily, hydrocodone 10/325 q.6 hours p.r.n., ipratropium bromide t.i.d. p.r.n., potassium 10 mEq daily, prednisone 5 mg daily, propranolol 120 mg daily, spironolactone 25 mg daily, tamsulosin 0.4 mg daily, Pork Thyroid 60 mg daily. SOCIAL HISTORY: Positive smoke 60 pack years. Negative alcohol. FAMILY HISTORY: Father with lung cancer at age 65. Son, diabetes. Brother, myocardial infarction, age 55. VITAL SIGNS: Temperature 36.6, blood pressure 127/62, pulse 65, respirations 18, pulse ox 96% on 2 liters nasal cannula. REVIEW OF SYSTEMS: A well-nourished female, currently in no acute distress. She is not experiencing any shortness of breath or difficulty breathing. No chest pain, palpitations, diaphoresis. No nausea, vomiting, no diarrhea or constipation. No known red blood per rectum, no dark tarry stools. No fever, chills, no recent inadvertent weight loss. All other review of systems negative. PHYSICAL EXAMINATION: CHEST: Distant breath sounds and scattered wheezes bilaterally. HEART: Regular, no murmurs. EXTREMITIES: No lower extremity edema, negative Homans sign. HEENT: No scleral icterus. NECK: No cervical lymphadenopathy. ABDOMEN: Soft, nontender, nondistended. SKIN: Warm, dry. LABORATORY DATA: WBC 12.5, hemoglobin 7.0, hematocrit 22, platelets 260. BUN is 22, creatinine 0.83. Iron 24. Total iron binding capacity 227. ASSESSMENT AND PLAN: A 76-year-old female with iron deficiency anemia. Differential is broad and we will schedule her for an EGD and colonoscopy on this visit. Job ID: [id number] DocumentID: [id number] Dictated Date: 04/18/2021 15:40:27 Casing Crew Date: 04/18/2021 16:42:45 Dictated By: BOB SERRANO MD [facility]
[2021-04-18] MEDS: SENNA W/DOCUSATE (SENOKOT S) TABLET PO SCH (19:36)
[2021-04-18] MEDS: LACTULOSE SYRUP 10GM/15ML (ENULOSE) 30ML UDC PO SCH (19:36)
[2021-04-18] MEDS: SENNOSIDES 8.6 MG (SENOKOT) TAB PO SCH (19:37)
[2021-04-18] MEDS: FAMOTIDINE 20 MG (PEPCID) TABLET PO SCH (20:37)
[2021-04-18] MEDS: PROMETHAZINE/ CODEINE SYRUP 5 ML UDC PO SCH (20:37)
[2021-04-18] MEDS: NYSTATIN ORAL SUSP 5 ML UDC PO SCH (20:37)
[2021-04-18] MEDS: TAMSULOSIN 0.4 MG (FLOMAX) CAP PO SCH (20:37)
[2021-04-18] MEDS: ZINC OXIDE 16% OINT (BUTT PASTE) 57 GM TUBE TOP SCH (20:43)
[2021-04-18] MEDS: PATCH REMOVAL TP SCH (20:44)
[2021-04-18] MEDS: CHLORHEXIDINE 0.12% SOLN 15 ML (PERIDEX) UDC PO SCH (20:46)
[2021-04-18] MEDS ORDERED: methylPREDNISolone 40 MG/ML (Solu-MEDROL) VIAL IV SCH (21:00)
[2021-04-19] MEDS: MULTIVIT W/MINERALS TAB (THERAGRAN M) PO SCH (04:07)
[2021-04-19] MEDS: THYROID (ARMOUR) 60 MG TABLET PO SCH (06:02)
[2021-04-19] MEDS: predniSONE 20 MG TAB PO SCH (06:03)
[2021-04-19 06:19] VITALS: BP 122/73
[2021-04-19 07:03] LABS: BASOPHILS % (AUTO) 0 % (0-10); EOSINOPHILS # (AUTO) 0.1 10^3/uL (0.0-0.3); EOSINOPHILS % (AUTO) 0 % (0-10); HEMATOCRIT 28 % (35-52); LYMPHOCYTES # (AUTO) 2.1 10^3/uL (1.0-4.0); LYMPHOCYTES % (AUTO) 14 % (12-44); MEAN CORPUSCULAR HEMOGLOBIN 31 pg (25-34); MEAN CORPUSCULAR HGB CONC 34 g/dL (32-36); MEAN CORPUSCULAR VOLUME 92 fL (80-99); MEAN PLATELET VOLUME 9.8 fL (9.0-12.2); MONOCYTES # (AUTO) 1.5 10^3/uL (0.0-1.0); MONOCYTES % (AUTO) 10 % (0-12); NEUTROPHILS # (AUTO) 11.3 10^3/uL (1.8-7.8); NEUTROPHILS % (AUTO) 71 % (42-75); PLATELET COUNT 259 10^3/uL (130-400); WHITE BLOOD COUNT 15.9 10^3/uL (4.3-11.0)
[2021-04-19 07:06] LABS: HEMOGLOBIN 9.5 g/dL (11.5-16.0)
[2021-04-19] MEDS: RT-ALBUTEROL/IPRATROPIUM 3 ML (DUONEB) VIAL INH SCH ×4 (07:10→18:23)
[2021-04-19 07:26] LABS: BUN/CREATININE RATIO 27; CALCIUM 8.7 MG/DL (8.5-10.1); CARBON DIOXIDE 26 MMOL/L (21-32); CHLORIDE 97 MMOL/L (98-107); CREATININE SERUM 0.83 MG/DL (0.60-1.30); GFR ESTIMATED > 60; GLUCOSE 80 MG/DL (70-105); MAGNESIUM 1.7 MG/DL (1.6-2.4); POTASSIUM 3.8 MMOL/L (3.6-5.0); SODIUM 131 MMOL/L (135-145)
[2021-04-19] MEDS: KCL 20 MEQ TAB (K-DUR) PO SCH (07:52)
[2021-04-19] MEDS: POTASSIUM CL 10MEQ/50ML IVPB 50 ML IV SCH (07:52)
--- NOTE | 2021-04-19 08:41 | Cardiology Progress Note ---
Subjective Date Seen by Provider: Apr 19, 2021 Time Seen by Provider: 08:39 Subjective/Events-last exam Patient was seen at bedside, laying down comfortably, still having some shortness of breath but overall feeling better Review of Systems General: No Chills, No Night Sweats; Fatigue, Malaise; No Appetite, No Other HEENT: No Head Aches, No Visual Changes, No Eye Pain, No Ear Pain, No Dysphasia, No Sinus Congestion, No Post Nasal Drip, No Sore Throat, No Other Pulmonary: Dyspnea; No Cough, No Pleuritic Chest Pain, No Other Cardiovascular: No: Chest Pain, Palpitations, Orthopnea, Paroxysmal Noc. Dyspnea, Edema, Lt Headedness, Other Objective-Cardiology Exam Last Set of Vital Signs Vital Signs 04/19/21 04/19/21 06:19 07:10 Temp 35.6 Pulse 63 Resp 20 B/P (MAP) 122/73 (89) Pulse Ox 94 O2 Delivery Nasal Cannula O2 Flow Rate 2.00 I&O Intake and Output 04/19/21 00:00 Intake Total 1470 ml Balance 1470 ml Intake Oral 1470 ml # Voids 5 # Bowel Movements 4 General: Alert, Oriented X3, Cooperative HEENT: Atraumatic, PERRLA Neck: Supple, No JVD, No Thyromegaly Lungs: Other (Bilateral rhonchi and wheezing) Heart: Regular Rate, Normal S1, Normal S2, No Murmurs Abdomen: Normal Bowel Sounds, Soft, No Tenderness, No Hepatosplenomegaly, No Masses Extremities: No Clubbing, No Cyanosis, No Edema, Normal Pulses, No Tenderness/Swelling Skin: No Rashes, No Breakdown, No Significant Lesion Neuro: Normal Gait, Normal Speech, Strength at 5/5 X4 Ext, Normal Tone, Sensati on Intact Psych/Mental Status: Mental Status NL, Mood NL Results Lab Laboratory Tests 04/19/21 06:33 A/P-Cardiology Admission Diagnosis Acute respiratory failure Anemia Paroxysmal atrial fibrillation Tobaccoism Assessment/Plan Acute on chronic respiratory failure, slight improvement, currently on nasal cannula, improving slowly, managed by primary care team, overall guarded prognosis Anemia, received blood transfusion, seen by Dr. Cat, possible endoscopy. Paroxysmal atrial fibrillation, had transient episode of atrial fibrillation on April 13, 2021, converted back to sinus rhythm on Cardizem drip. Better at this time, continue to monitor Pneumonia, pulmonary infiltrate and pleural effusion, receiving antibiotics. No change on chest x-ray Congestive heart failure, mild elevation in BNP. Echocardiogram showed ejection fraction 50%, started on low-dose diuretics. Continue to monitor Change in mental status, generalized fatigue and lethargy, probably secondary to severe hypoxemia and respiratory failure. Feeling better today Tobaccoism, still an active smoker, discussed with her and her about smoking cessation Multiple rib fractures. History of anemia. Monitor H&H. Debility and generalized weakness, patient was followed by PT/OT AKOSUA NEWELL MD Apr 19, 2021 8:40 am
[2021-04-19] MEDS: LIDOCAINE 4% (SALONPAS) PATCH TOP SCH (08:47)
[2021-04-19] MEDS: MAGNESIUM 1 GM/100 ML IVPB 100 ML IV SCH (08:47)
[2021-04-19] MEDS: PANTOPRAZOLE 40 MG (PROTONIX) TAB PO SCH (08:48)
[2021-04-19] MEDS: CALCIUM CARBONATE 600 MG (CALCARB) TAB PO SCH (08:48)
[2021-04-19] MEDS: LORATADINE (CLARITIN) 10 MG TAB PO SCH (08:48)
[2021-04-19] MEDS: VITAMIN D3 25 MCG (1,000 UNITS) TABLET PO SCH (08:48)
[2021-04-19] MEDS: NICOTINE 14 MG (NICODERM) PATCH TD SCH (08:48)
[2021-04-19] MEDS: SPIRONOLACTONE 25 MG (ALDACTONE) TAB PO SCH (08:48)
[2021-04-19] MEDS: AUGMENTIN 500 MG TAB (AMOXICILLIN/CLAVULANATE) PO SCH ×2 (08:48→17:04)
[2021-04-19] MEDS: CHLORHEXIDINE 0.12% SOLN 15 ML (PERIDEX) UDC PO SCH ×2 (08:48→21:32)
[2021-04-19] MEDS: SENNA W/DOCUSATE (SENOKOT S) TABLET PO SCH ×2 (08:49→21:32)
[2021-04-19] MEDS: NYSTATIN ORAL SUSP 5 ML UDC PO SCH ×2 (08:49→21:32)
[2021-04-19] MEDS: ZINC OXIDE 16% OINT (BUTT PASTE) 57 GM TUBE TOP SCH ×2 (08:50→21:33)
[2021-04-19] MEDS: PROPRANOLOL LA 120 MG (INDERAL LA) CAP NON-FORMULARY PO SCH (08:50)
[2021-04-19] MEDS: FLUTICASONE NASAL SPRAY (FLONASE) 16 GM BTL NS SCH (08:51)
[2021-04-19] MEDS: SENNOSIDES 8.6 MG (SENOKOT) TAB PO SCH ×2 (09:02→21:33)
[2021-04-19] MEDS: LACTULOSE SYRUP 10GM/15ML (ENULOSE) 30ML UDC PO SCH ×2 (09:02→21:32)
[2021-04-19] MEDS: ASPIRIN 81 MG CHEW (CHILDREN'S ASA) PO SCH (09:02)
[2021-04-19] MEDS: KCL 10 MEQ TAB (MICRO K) PO SCH (09:02)
--- NOTE | 2021-04-19 10:19 | Physical Therapy Daily Note ---
PT Daily Note-Current Subjective Patient agrees to PT. Mental Status Patient Orientation: Normal For Age Attachments: Oxygen, IV Transfers SCALE: Activities may be completed with or without assistive devices. 0-Pkplkdelnn-rarbnlr completes the activity by him/herself with no assistance from a helper. 5-Set-up or Clean-up Assistance-helper sets up or cleans up; patient completes activity. [place] assists only prior to or following the activity. 4-Supervision or Touching Assistance-helper provides verbal cues and/or touching/steadying and/or contact guard assistance as patient completes activity. Assistance may be provided throughout the activity or intermittently. 3-Partial/Moderate Assistance-helper does LESS THAN HALF the effort. [place] lifts, holds or supports trunk or limbs, but provides less than half the effort. 2-Substantial/Maximal Assistance-helper does MORE THAN HALF the effort. [place] lifts or holds trunk or limbs and provides more than half the effort. 6-Gzlvooouy-gmzwxx does ALL the effort. Patient does none of the effort to complete the activity. Or, the assistance of 2 or more helpers is required for the patient to complete the activity. If activity was not attempted, code reason: 7-Patient Refused. 9-Not Applicable-not attempted and the patient did not perform the activity before the current illness, exacerbation or injury. 10-Not Attempted due to Environmental Limitations-(lack of equipment, weather restraints, etc.). 88-Not Attempted due to Medical Conditions or Safety Concerns. Lying to Sitting/Side of Bed(Q: 4 (SBA) Sit to Stand (QC): 3 Chair/Msp-wd-Hfiye Xfer(QC): 4 (CGA) Gait Training Does the Patient Walk?: Yes Distance: 30' Walk 10 feet (QC): 3 Gait Assistive Device: FWW very slow with increase SOA with minimal activity Exercises Seated Therapy Exercises: Ankle pumps, Long arc quads Seated Reps: 15 Assessment Patient requires time to complete all functional tasks. Patient tolerates minimal activity. PT Custodial Goals Tire Service Technician Goals PT Custodial Goals Time Frame: May 02, 2021 Roll Left & Right (QC): 6 Sit to Lying (QC): 4 Lying-Sitting on Side/Bed(QC): 4 Sit to Stand (QC): 4 Chair/Gia-xq-Sgmzm Xfer(QC): 4 Toilet Transfer (QC): 4 Car Transfer (QC): 4 Does the Patient Walk: Yes Walk 10 feet (QC): 4 Walk 50ft with 2 Turns (QC): 4 Walk 150 ft (QC): 88 Walking 10ft on Uneven Surface: 88 1 Step (curb) (QC): 3 4 Steps (QC): 3 12 Steps (QC): 88 Picking up an Object (QC): 88 Wheel 50 feet with 2 turns (QC: 9 Wheel 150 feet: 9 PT Plan Treatment/Plan Treatment Plan: Continue Plan of Care Treatment Plan: Bed Mobility, Education, Functional Activity [place], Functional Strength, Gait, Safety, Therapeutic Exercise, Transfers Treatment Duration: May 02, 2021 Frequency: 6 times per week Estimated Hrs Per Day: .25 hour per day Patient and/or Family Agrees t: Yes Time/GCodes Time In: 916 Time Out: 934 Total Billed Treatment Time: 18 Total Billed Treatment 1 visit FA 18 min JOHNSON FELIZ PT Apr 19, 2021 10:19
[2021-04-19 10:41] VITALS: BP 122/73
--- NOTE | 2021-04-19 10:54 | Occupational Ther Daily Note ---
OT Current Status-Daily Note Subjective Pt alert, sitting in recliner. Attempted to see pt at 1040 and pt refused at this time stating that she had to recovery from her busy morning. Will attempt to see pt at 1300. Pt agrees to participate in OT session at 1300. Mental Status/Objective Patient Orientation: Person, Place, Time, Situation Attachments: IV, Oxygen (2L at rest 4L with activity) ADL-Treatment Pt requests shower. Set up for shower. Pt sitting on BSC is able to bathe upper body, buttocks and jolie area. Assist to bathe lower body/feet. Pt takes increased time to complete all tasks due to low endurance and SOA. Assist to don/doff socks and SHAKA hose. After set up, pt able to don/doff upper body clothing, After therapy, pt sitting in recliner with call light/phone in reach. BSC close to pt due to bowel prep for colonoscopy tomorrow. All needs met in room. Therapy Code Descriptions/Definitions Functional [place] Measure: 0=Not Assessed/NA 4=Minimal Assistance 1=Total Assistance 5=Supervision or Setup 2=Maximal Assistance 6=Modified [place] 3=Moderate Assistance 7=Complete IndependenceSCALE: Activities may be completed with or without assistive devices. 9-Hpjtubigru-ajfjvcc completes the activity by him/herself with no assistance from a helper. 5-Set-up or Clean-up Assistance-helper sets up or cleans up; patient completes activity. [place] assists only prior to or following the activity. 4-Supervision or Touching Assistance-helper provides verbal cues and/or touching/steadying and/or contact guard assistance as patient completes activity. Assistance may be provided throughout the activity or intermittently. 3-Partial/Moderate Assistance-helper does LESS THAN HALF the effort. [place] lifts, holds or supports trunk or limbs, but provides less than half the effort. 2-Substantial/Maximal Assistance-helper does MORE THAN HALF the effort. [place] lifts or holds trunk or limbs and provides more than half the effort. 7-Bxlqvcnnu-hythyj does ALL the effort. Patient does none of the effort to complete the activity. Or, the assistance of 2 or more helpers is required for the patient to complete the activity. If activity was not attempted, code reason: 7-Patient Refused. 9-Not Applicable-not attempted and the patient did not perform the activity before the current illness, exacerbation or injury. 10-Not Attempted due to Environmental Limitations-(lack of equipment, weather restraints, etc.). 88-Not Attempted due to Medical Conditions or Safety Concerns. Bathing Location: L Arm, R Arm, L Upper Leg, R Upper Leg, Chest, Abdomen, Buttocks, Perineal Area Shower/Bathe Self (QC): 3 Upper Body Dressing (QC): 5 On/Off Footwear: 2 Toileting Hygiene (QC): 4 Toilet Transfer (QC): 4 OT Mail Room Clerk Goals Assisted Goals Time Frame: May 02, 2021 Eating (QC): 6 Oral Hygiene (QC): 6 Toileting Hygiene (QC): 4 Shower/Bathe Self (QC): 4 Upper Body Dressing (QC): 5 Lower Body Dressing (QC): 4 On/Off Footwear (QC): 4 Additional Goals: 1-Demonstrate ADL Tasks, 2-Verbalize Understanding, 3- ImproveStrength/[place] 1=Demonstrate adherence to instructed precautions during ADL tasks. 2=Patient will verbalize/demonstrate understanding of assistive devices/modifications for ADL. 3=Patient will improve strength/tolerance for activity to enable patient to perform ADL's. OT Education/Plan Problem List/Assessment Assessment: Decreased Activ Tolerance, Decreased UE Strength, Impaired Self- Care Skills Discharge Recommendations Plan/Recommendations: Continue POC Treatment Plan/Plan of Care Patient would benefit from OT for education, treatment and training to promote independence in ADL's, mobility, safety and/or upper extremity function for ADL's. Plan of Care: ADL Retraining, Caregiver Training, Functional Mobility, UE Funct Exercise/Act, W/C Management Training Treatment Duration: May 02, 2021 Frequency: 5 times per week Estimated Hrs Per Day: .25 hour per day Agreement: Yes Rehab Potential: Fair Time/GCodes Start Time: 13:00 Stop Time: 14:10 Total Time Billed (hr/min): 70 Billed Treatment Time 1 visit-ADL 5 (70 min) ERIK DE LA GARZA Apr 19, 2021 10:54
[2021-04-19] MEDS ORDERED: MAGNESIUM CITRATE 300 ML BTL PO SCH (11:00)
--- NOTE | 2021-04-19 15:11 | Progress Note-Pre Operative ---
Pre-Operative Progress Note H&P Reviewed The H&P was reviewed, patient examined and no changes noted. Date Seen by Provider: Apr 19, 2021 Time Seen by Provider: 15:00 Date H&P Reviewed: Apr 19, 2021 Time H&P Reviewed: 15:00 Pre-Operative Diagnosis: anemia BOB SERRANO MD Apr 19, 2021 15:11
--- NOTE | 2021-04-19 15:12 | Conscious Sedation/ASA ---
Conscious Sedation Pre-Proced Time 15:00 ASA Score 3 For ASA 3 and 4: Consider anesthesia and medical clearance. Also, for patients with a history of failed moderate sedation consider anesthesia. Airway Lungs Heart ASA score ASA 1: a normal healthy patient ASA 2: a patient with a mild systemic disease (mid diabetes, controlled hypertension, obesity ASA 3: a patient with a severe systemic disease that limits activity (angina, COPD, prior Myocardial infarction) ASA 4: a patient with an incapacitating disease that is a constant threat to life (CHF, renal failure) ASA 5: a moribund patient not expected to survive 24 hrs. (ruptured aneurysm) ASA 6: a declared brain- patient whose organs are being harvested. For emergent operations, add the letter E after the classification Mallampati Classification Grade 2 Sedation Plan Analgesia, Amnesia, Plan communicated to team members, Discussed options with patient/fam, Discussed risks with patient/fam The patient is an appropriate candidate to undergo the planned procedure, sedation, and anesthesia. The patient immediately re-assessed prior to indication. BOB SERRANO MD Apr 19, 2021 15:12
[2021-04-19] MEDS: MAGNESIUM CITRATE 300 ML BTL PO SCH ×2 (17:04→21:32)
[2021-04-19 17:13] VITALS: BP 120/71
[2021-04-19] MEDS: TAMSULOSIN 0.4 MG (FLOMAX) CAP PO SCH (21:32)
[2021-04-19] MEDS: PROMETHAZINE/ CODEINE SYRUP 5 ML UDC PO SCH (21:32)
[2021-04-19] MEDS: FAMOTIDINE 20 MG (PEPCID) TABLET PO SCH (21:32)
[2021-04-19] MEDS: PATCH REMOVAL TP SCH (21:33)
[2021-04-20] VITALS (9 sets, daily range): BP systolic 96–127; BP diastolic 48–75
[2021-04-20] MEDS: MAGNESIUM CITRATE 300 ML BTL PO SCH ×2 (00:08→03:48)
[2021-04-20 04:19] LABS: BASOPHILS # (AUTO) 0.1 10^3/uL (0.0-0.1); BASOPHILS % (AUTO) 0 % (0-10); EOSINOPHILS # (AUTO) 0.1 10^3/uL (0.0-0.3); EOSINOPHILS % (AUTO) 1 % (0-10); HEMATOCRIT 29 % (35-52); HEMOGLOBIN 9.4 g/dL (11.5-16.0); LYMPHOCYTES # (AUTO) 1.9 10^3/uL (1.0-4.0); LYMPHOCYTES % (AUTO) 12 % (12-44); MEAN CORPUSCULAR HEMOGLOBIN 30 pg (25-34); MEAN CORPUSCULAR HGB CONC 33 g/dL (32-36); MEAN CORPUSCULAR VOLUME 92 fL (80-99); MEAN PLATELET VOLUME 9.3 fL (9.0-12.2); MONOCYTES # (AUTO) 1.5 10^3/uL (0.0-1.0); MONOCYTES % (AUTO) 10 % (0-12); NEUTROPHILS # (AUTO) 11.5 10^3/uL (1.8-7.8); NEUTROPHILS % (AUTO) 72 % (42-75); PLATELET COUNT 256 10^3/uL (130-400); WHITE BLOOD COUNT 15.9 10^3/uL (4.3-11.0)
[2021-04-20 04:33] LABS: CHLORIDE 102 MMOL/L (98-107); POTASSIUM 3.4 MMOL/L (3.6-5.0); SODIUM 134 MMOL/L (135-145)
[2021-04-20 04:34] LABS: CALCIUM 8.3 MG/DL (8.5-10.1)
[2021-04-20 04:35] LABS: GLUCOSE 82 MG/DL (70-105)
[2021-04-20 04:36] LABS: CARBON DIOXIDE 24 MMOL/L (21-32)
[2021-04-20 04:37] LABS: BILIRUBIN,TOTAL 0.9 MG/DL (0.1-1.0)
[2021-04-20 04:39] LABS: ALKALINE PHOSPHATASE 49 U/L (40-136); CREATININE SERUM 0.81 MG/DL (0.60-1.30); GFR ESTIMATED > 60
[2021-04-20 04:40] LABS: BUN/CREATININE RATIO 19
[2021-04-20 04:42] LABS: ALANINE AMINOTRANSFERASE 32 U/L (0-55); MAGNESIUM 2.7 MG/DL (1.6-2.4)
[2021-04-20] MEDS: MAGNESIUM 1 GM/100 ML IVPB 100 ML IV SCH (04:46)
[2021-04-20] MEDS: KCL 20 MEQ TAB (K-DUR) PO SCH (04:46)
[2021-04-20] MEDS: POTASSIUM CL 10MEQ/50ML IVPB 50 ML IV SCH ×2 (04:47→05:06)
[2021-04-20] MEDS: MULTIVIT W/MINERALS TAB (THERAGRAN M) PO SCH (04:47)
[2021-04-20] MEDS: predniSONE 20 MG TAB PO SCH (05:21)
[2021-04-20] MEDS: THYROID (ARMOUR) 60 MG TABLET PO SCH (05:21)
[2021-04-20] MEDS: RT-ALBUTEROL/IPRATROPIUM 3 ML (DUONEB) VIAL INH SCH ×3 (07:13→20:51)
[2021-04-20] MEDS: LIDOCAINE 4% (SALONPAS) PATCH TOP SCH (08:03)
[2021-04-20] MEDS: NICOTINE 14 MG (NICODERM) PATCH TD SCH (08:03)
[2021-04-20] MEDS: IRON SUCROSE 200 MG/10 ML (VENOFER) VIAL IV SCH (08:04)
[2021-04-20] MEDS: ZINC OXIDE 16% OINT (BUTT PASTE) 57 GM TUBE TOP SCH ×2 (08:04→21:18)
--- NOTE | 2021-04-20 08:41 | Occupational Ther Daily Note ---
OT Current Status-Daily Note Subjective Pt alert, lying in bed. Pt requires encouragement to participate in therapy though no OOB activities. Pt states that she has been up all night pooping and is just to tired. PT and [place] encouraging pt to get OOB to help increase strength and endurance. Pt refused to get OOB. Mental Status/Objective Patient Orientation: Person, Place, Time, Situation Attachments: IV, Oxygen (2L) ADL-Treatment After gathering supplies, pt able to complete oral care and wash face. Pt continued to decline to sit in recliner. After therapy, pt lying in bed with call light/phone in reach. All needs met in room. Therapy Code Descriptions/Definitions Functional [place] Measure: 0=Not Assessed/NA 4=Minimal Assistance 1=Total Assistance 5=Supervision or Setup 2=Maximal Assistance 6=Modified [place] 3=Moderate Assistance 7=Complete IndependenceSCALE: Activities may be completed with or without assistive devices. 3-Wpqahgnafy-ltaunck completes the activity by him/herself with no assistance from a helper. 5-Set-up or Clean-up Assistance-helper sets up or cleans up; patient completes activity. [place] assists only prior to or following the activity. 4-Supervision or Touching Assistance-helper provides verbal cues and/or touching/steadying and/or contact guard assistance as patient completes activity. Assistance may be provided throughout the activity or intermittently. 3-Partial/Moderate Assistance-helper does LESS THAN HALF the effort. [place] lifts, holds or supports trunk or limbs, but provides less than half the effort. 2-Substantial/Maximal Assistance-helper does MORE THAN HALF the effort. [place] lifts or holds trunk or limbs and provides more than half the effort. 1-Txfjgqjeh-sbojmy does ALL the effort. Patient does none of the effort to complete the activity. Or, the assistance of 2 or more helpers is required for the patient to complete the activity. If activity was not attempted, code reason: 7-Patient Refused. 9-Not Applicable-not attempted and the patient did not perform the activity before the current illness, exacerbation or injury. 10-Not Attempted due to Environmental Limitations-(lack of equipment, weather restraints, etc.). 88-Not Attempted due to Medical Conditions or Safety Concerns. Oral Hygiene (QC): 5 OT Jail Goals Jail Goals Time Frame: May 02, 2021 Eating (QC): 6 Oral Hygiene (QC): 6 Toileting Hygiene (QC): 4 Shower/Bathe Self (QC): 4 Upper Body Dressing (QC): 5 Lower Body Dressing (QC): 4 On/Off Footwear (QC): 4 Additional Goals: 1-Demonstrate ADL Tasks, 2-Verbalize Understanding, 3-ImproveStrength/[place] 1=Demonstrate adherence to instructed precautions during ADL tasks. 2=Patient will verbalize/demonstrate understanding of assistive devices/modifications for ADL. 3=Patient will improve strength/tolerance for activity to enable patient to perform ADL's. OT Education/Plan Problem List/Assessment Assessment: Decreased Activ Tolerance Discharge Recommendations Plan/Recommendations: Continue POC Treatment Plan/Plan of Care Patient would benefit from OT for education, treatment and training to promote independence in ADL's, mobility, safety and/or upper extremity function for ADL's. Plan of Care: ADL Retraining, Caregiver Training, Functional Mobility, UE Funct Exercise/Act, W/C Management Training Treatment Duration: May 02, 2021 Frequency: 5 times per week Estimated Hrs Per Day: .25 hour per day Agreement: Yes Rehab Potential: Fair Time/GCodes Start Time: 08:30 Stop Time: 08:45 Total Time Billed (hr/min): 15 Billed Treatment Time 1 visit-ADL 1 (15 min) ERIK DE LA GARZA Apr 20, 2021 08:41
[2021-04-20] MEDS: AUGMENTIN 500 MG TAB (AMOXICILLIN/CLAVULANATE) PO SCH ×2 (09:01→16:27)
[2021-04-20] MEDS: LORATADINE (CLARITIN) 10 MG TAB PO SCH (09:02)
[2021-04-20] MEDS: SPIRONOLACTONE 25 MG (ALDACTONE) TAB PO SCH (09:02)
[2021-04-20] MEDS: NYSTATIN ORAL SUSP 5 ML UDC PO SCH ×2 (09:02→21:21)
[2021-04-20] MEDS: CALCIUM CARBONATE 600 MG (CALCARB) TAB PO SCH (09:02)
[2021-04-20] MEDS: PROPRANOLOL LA 120 MG (INDERAL LA) CAP NON-FORMULARY PO SCH (09:02)
[2021-04-20] MEDS: ASPIRIN 81 MG CHEW (CHILDREN'S ASA) PO SCH (09:02)
[2021-04-20] MEDS: KCL 10 MEQ TAB (MICRO K) PO SCH (09:02)
[2021-04-20] MEDS: LACTULOSE SYRUP 10GM/15ML (ENULOSE) 30ML UDC PO SCH ×2 (09:02→21:16)
[2021-04-20] MEDS: CHLORHEXIDINE 0.12% SOLN 15 ML (PERIDEX) UDC PO SCH ×2 (09:02→21:18)
[2021-04-20] MEDS: FLUTICASONE NASAL SPRAY (FLONASE) 16 GM BTL NS SCH (09:02)
[2021-04-20] MEDS: SENNOSIDES 8.6 MG (SENOKOT) TAB PO SCH ×2 (09:03→21:15)
[2021-04-20] MEDS: VITAMIN D3 25 MCG (1,000 UNITS) TABLET PO SCH (09:03)
[2021-04-20] MEDS: PANTOPRAZOLE 40 MG (PROTONIX) TAB PO SCH (09:03)
[2021-04-20] MEDS: SENNA W/DOCUSATE (SENOKOT S) TABLET PO SCH ×2 (09:03→21:15)
--- NOTE | 2021-04-20 09:52 | Physical Therapy Progress Note ---
Therapy Progress Note Patient adamantly declined PT stating she "wasn't feeling it". Patient reports she has been up all night incontinent BM due to prep for colonoscopy. Nursing confirms. PT attempted to encourage patient to perform up to recliner or commode and to ambulate in room, however, patient continued to decline. OT present for bed ADL session. SW coordinator notified. 1 ref ([id number]) JOHNSON FELIZ PT Apr 20, 2021 09:52
[2021-04-20] MEDS ORDERED: LACTATED RINGERS 1,000 ML IV ONE ×2 (13:24→14:30)
[2021-04-20] MEDS ORDERED: fentaNYL INJ 100 MCG/2 ML AMP ONE (14:01)
[2021-04-20] MEDS ORDERED: MIDAZOLAM 5 MG/5 ML (VERSED) VIAL ONE (14:02)
[2021-04-20] MEDS ORDERED: LIDOCAINE JELLY 2% 6 ML SYRINGE ONE (14:02)
[2021-04-20] MEDS ORDERED: HURRICAINE EXT TUBE (BENZOCAINE) ONE (14:03)
[2021-04-20] MEDS ORDERED: LIDOCAINE JELLY 2% 6 ML SYRINGE MM PRN (14:15)
[2021-04-20] MEDS ORDERED: MIDAZOLAM 5 MG/5 ML (VERSED) VIAL IV ONE (14:15)
[2021-04-20] MEDS ORDERED: HURRICAINE EXT TUBE (BENZOCAINE) XX PRN (14:15)
[2021-04-20] MEDS ORDERED: fentaNYL INJ 100 MCG/2 ML AMP IVP ONE (14:15)
--- NOTE | 2021-04-20 14:38 | Progress Note-Post Operative ---
Post-Operative Progess Note Surgeon (s)/Farmer [employer] Grain (s) Surgeon BOB SERRANO MD [employer]: none Pre-Operative Diagnosis anemia Post-Operative Diagnosis reflux esophagitis(stage 3), moderate gastritis, large pyloric ulcer with overlying fibrin clot(6-8mm). chronic stage 2 ext and int hemorrhoids, moderate sigmoid diverticulosis, no active bleed. Procedure & Operative Findings Date of Procedure 04/20/21 Procedure Performed/Findings EGD with bx. Sigmoidoscopy Anesthesia Type cs Estimated Blood Loss Estimated blood loss (mL): minimal Specimens/Packing Specimens Removed pyloric ulcer, antrum, ge jxn BOB SERRANO MD Apr 20, 2021 14:38
[2021-04-20] MEDS: SUCRALFATE 1 GM (CARAFATE) TAB PO SCH ×2 (16:27→21:18)
--- NOTE | 2021-04-20 18:54 | OPERATIVE REPORT ---
DATE OF SERVICE: 04/20/2021 ATTENDING PRIMARY CARE PHYSICIAN: Christiano Pereira MD ADMITTING PHYSICIAN: Dr. Lopez. PREOPERATIVE DIAGNOSIS: Iron deficiency anemia. POSTOPERATIVE DIAGNOSES: Large pyloric ulcer approximately 6 to 8 mm in size with an overlying fibrin clot, no active bleeding. Reflux esophagitis stage III, small hiatal hernia approximately 2 cm in size. Moderate sigmoid diverticulosis, chronic stage II external and internal hemorrhoids. PROCEDURE: EGD with biopsy, sigmoidoscopy. SURGEON: Bob Cat MD. ANESTHESIA: Conscious sedation. ESTIMATED BLOOD LOSS: Minimal. FINDINGS: Large pyloric ulcer approximately 6 to 8 mm in size with an overlying fibrin clot, no active bleeding. Reflux esophagitis stage III, small hiatal hernia approximately 2 cm in size. Moderate sigmoid diverticulosis, chronic stage II external and internal hemorrhoids. DISPOSITION: The patient tolerated the procedure well. INDICATIONS: The patient is a 76-year-old female who fell some time ago; however, she did have a fractured rib and did require rehabilitation. She was admitted for increased weakness and was found to have a significant iron deficiency anemia. Upon further questioning, she does report a history of gastroesophageal reflux disease as well as peptic ulcer disease. We had also done a colonoscopy on her in 2019 and she was found to have diverticulosis. DESCRIPTION OF PROCEDURE: The patient was brought to the endoscopy suite, laid in left lateral decubitus position with head slightly elevated. After adequate IV pain and sedating medications and conscious sedation anesthesia, the mouthpiece was applied. The endoscope was placed in the mouth, visualizing the pharynx and hypopharyngeal region. Vocal cords, epiglottis and vallecula identified and appeared to be normal. The endoscope was then gently intubated into the esophageal opening and esophagus insufflated. The endoscope was then advanced through the first, second and third portion of esophagus at the level of the GE junction, a reflux esophagitis stage III identified. There were no ulcers or strictures identified in this region. A biopsy was taken with forceps with visualization of good hemostasis. The endoscope was then advanced into the stomach and endoscope retroflexed, visualizing a small hiatal hernia approximately 2 cm in size. There was a significant size of a pyloric ulcer with an overlying fibrin clot approximately 6 to 8 mm in size. A biopsy was taken of the edge of the ulcer with forceps with visualization of good hemostasis. The endoscope was then advanced through the pylorus to the first and second portion of the duodenum, which appeared normal. Biopsy was taken of the antrum to rule out H. pylori as well as the GE junction. The endoscope was then slowly withdrawn while taking a second look and suctioning of residual air with no additional findings. We then proceeded with a sigmoidoscopy portion of the procedure and a digital rectal examination was performed, which revealed chronic stage II external and internal hemorrhoids, not actively edematous nor inflamed and no bleeding. Endoscope was then intubated and anus and rectum gently insufflated. The endoscope was then advanced through the valves of [place] of the rectum with no polyps or any neoplasms identified. Through the sigmoid colon, a moderate sigmoid diverticulosis identified. There were no mucosal inflammatory changes to indicate any active diverticulitis. There was a significant amount of resistance met at this time and it was decided to just stop at the descending colon and proceeded with a sigmoidoscopy. The endoscope was then slowly withdrawn while taking a second look and suctioning residual air with no additional findings. The patient tolerated the procedure well. We will start her on Protonix 40 mg daily as well as Carafate 1 gram q.i.d. for the next two weeks as well on a p.r.n. basis. Job ID: [id number] DocumentID: [id number] Dictated Date: 04/20/2021 14:33:48 Cell Operator Date: 04/20/2021 18:54:02 Dictated By: BOB CAT MD
[2021-04-20] MEDS: PANTOPRAZOLE 40 MG (PROTONIX) VIAL IV SCH (21:18)
[2021-04-20] MEDS: FAMOTIDINE 20 MG (PEPCID) TABLET PO SCH (21:18)
[2021-04-20] MEDS: PROMETHAZINE/ CODEINE SYRUP 5 ML UDC PO SCH (21:18)
[2021-04-20] MEDS: TAMSULOSIN 0.4 MG (FLOMAX) CAP PO SCH (21:18)
[2021-04-20] MEDS: PATCH REMOVAL TP SCH (21:18)
[2021-04-20] MEDS: ALPRAZolam 0.25 MG (XANAX) TAB PO PRN (21:46)
[2021-04-21 00:15] VITALS: BP 102/55
[2021-04-21] MEDS: MAGNESIUM 1 GM/100 ML IVPB 100 ML IV SCH (06:00)
[2021-04-21] MEDS: oxyCODONE/APAP 7.5-325 MG (PERCOCET 7.5) TABLET PO PRN ×2 (06:08→14:54)
[2021-04-21 06:41] LABS: BASOPHILS % (AUTO) 0 % (0-10); EOSINOPHILS # (AUTO) 0.3 10^3/uL (0.0-0.3); EOSINOPHILS % (AUTO) 3 % (0-10); HEMATOCRIT 27 % (35-52); HEMOGLOBIN 8.9 g/dL (11.5-16.0); LYMPHOCYTES # (AUTO) 1.4 10^3/uL (1.0-4.0); LYMPHOCYTES % (AUTO) 12 % (12-44); MEAN CORPUSCULAR HEMOGLOBIN 31 pg (25-34); MEAN CORPUSCULAR HGB CONC 33 g/dL (32-36); MEAN CORPUSCULAR VOLUME 94 fL (80-99); MEAN PLATELET VOLUME 9.3 fL (9.0-12.2); MONOCYTES % (AUTO) 8 % (0-12); NEUTROPHILS # (AUTO) 8.5 10^3/uL (1.8-7.8); NEUTROPHILS % (AUTO) 71 % (42-75); PLATELET COUNT 229 10^3/uL (130-400)
[2021-04-21] MEDS: RT-ALBUTEROL/IPRATROPIUM 3 ML (DUONEB) VIAL INH SCH ×2 (06:44→20:36)
[2021-04-21] MEDS: FORMOTEROL FUMARATE IH SCH ×3 (06:45→11:01)
[2021-04-21 06:48] LABS: CHLORIDE 101 MMOL/L (98-107); POTASSIUM 3.6 MMOL/L (3.6-5.0); SODIUM 134 MMOL/L (135-145)
[2021-04-21] MEDS: predniSONE 20 MG TAB PO SCH (06:48)
[2021-04-21] MEDS: THYROID (ARMOUR) 60 MG TABLET PO SCH (06:48)
[2021-04-21] MEDS: SUCRALFATE 1 GM (CARAFATE) TAB PO SCH ×4 (06:48→21:28)
[2021-04-21 06:50] LABS: CALCIUM 7.7 MG/DL (8.5-10.1); GLUCOSE 71 MG/DL (70-105)
[2021-04-21] MEDS: POTASSIUM CL 10MEQ/50ML IVPB 50 ML IV SCH (06:50)
[2021-04-21] MEDS: KCL 20 MEQ TAB (K-DUR) PO SCH (06:51)
[2021-04-21 06:52] VITALS: BP 96/57
[2021-04-21 06:52] LABS: CARBON DIOXIDE 25 MMOL/L (21-32)
[2021-04-21 06:54] LABS: CREATININE SERUM 0.76 MG/DL (0.60-1.30); GFR ESTIMATED > 60
[2021-04-21] MEDS: MULTIVIT W/MINERALS TAB (THERAGRAN M) PO SCH (06:54)
[2021-04-21 06:55] LABS: BUN/CREATININE RATIO 16
[2021-04-21 06:56] LABS: MAGNESIUM 2.3 MG/DL (1.6-2.4)
[2021-04-21 08:00] VITALS: BP 94/53
[2021-04-21] MEDS ORDERED: KCL 20 MEQ TAB (K-DUR) PO ONE (09:00)
[2021-04-21] MEDS: VITAMIN D3 25 MCG (1,000 UNITS) TABLET PO SCH (10:58)
[2021-04-21] MEDS: LORATADINE (CLARITIN) 10 MG TAB PO SCH (10:58)
[2021-04-21] MEDS: CALCIUM CARBONATE 600 MG (CALCARB) TAB PO SCH (10:58)
[2021-04-21] MEDS: ASPIRIN 81 MG CHEW (CHILDREN'S ASA) PO SCH (10:59)
[2021-04-21] MEDS: SPIRONOLACTONE 25 MG (ALDACTONE) TAB PO SCH (10:59)
[2021-04-21] MEDS: NYSTATIN ORAL SUSP 5 ML UDC PO SCH ×2 (10:59→21:29)
[2021-04-21] MEDS: PANTOPRAZOLE 40 MG (PROTONIX) VIAL IV SCH ×2 (10:59→21:28)
[2021-04-21] MEDS: NICOTINE 14 MG (NICODERM) PATCH TD SCH (10:59)
[2021-04-21] MEDS: CHLORHEXIDINE 0.12% SOLN 15 ML (PERIDEX) UDC PO SCH ×2 (10:59→21:28)
[2021-04-21] MEDS: KCL 10 MEQ TAB (MICRO K) PO SCH (10:59)
[2021-04-21] MEDS: LACTULOSE SYRUP 10GM/15ML (ENULOSE) 30ML UDC PO SCH ×2 (11:02→21:11)
[2021-04-21] MEDS: SENNOSIDES 8.6 MG (SENOKOT) TAB PO SCH ×2 (11:02→21:10)
[2021-04-21] MEDS: SENNA W/DOCUSATE (SENOKOT S) TABLET PO SCH ×2 (11:02→21:10)
[2021-04-21] MEDS: FLUTICASONE NASAL SPRAY (FLONASE) 16 GM BTL NS SCH (11:02)
[2021-04-21] MEDS: PROPRANOLOL LA 120 MG (INDERAL LA) CAP NON-FORMULARY PO SCH (11:03)
[2021-04-21] MEDS: ZINC OXIDE 16% OINT (BUTT PASTE) 57 GM TUBE TOP SCH ×2 (11:04→21:30)
[2021-04-21] MEDS: LIDOCAINE 4% (SALONPAS) PATCH TOP SCH (11:11)
[2021-04-21] MEDS: AUGMENTIN 500 MG TAB (AMOXICILLIN/CLAVULANATE) PO SCH ×2 (11:11→18:03)
--- NOTE | 2021-04-21 11:17 | Cardiology Progress Note ---
Subjective Date Seen by Provider: Apr 21, 2021 Time Seen by Provider: 11:16 Subjective/Events-last exam Patient was seen at bedside, laying down comfortably, feeling better today. Review of Systems General: No Chills, No Night Sweats, No Fatigue, No Malaise, No Appetite, No Other HEENT: No Head Aches, No Visual Changes, No Eye Pain, No Ear Pain, No Dysphasia, No Sinus Congestion, No Post Nasal Drip, No Sore Throat, No Other Pulmonary: No Dyspnea, No Cough, No Pleuritic Chest Pain, No Other Cardiovascular: No: Chest Pain, Palpitations, Orthopnea, Paroxysmal Noc. Dyspnea, Edema, Lt Headedness, Other Objective-Cardiology Exam Last Set of Vital Signs Vital Signs 04/19/21 04/21/21 04/21/21 10:41 08:00 09:00 Temp 35.4 Pulse 66 Resp 18 B/P (MAP) 94/53 (67) Pulse Ox 94 O2 Delivery High Flow N/C O2 Flow Rate 3.00 FiO2 28 I&O Intake and Output 04/21/21 00:00 Intake Total 700 ml Balance 700 ml Intake Oral 400 ml IV Total 300 ml # Voids 3 # Bowel Movements 9 General: Alert, Oriented X3, Cooperative HEENT: Atraumatic, PERRLA Neck: Supple, No JVD, No Thyromegaly Lungs: Other (Bilateral rhonchi and wheezing) Heart: Regular Rate, Normal S1, Normal S2, No Murmurs Abdomen: Normal Bowel Sounds, Soft, No Tenderness, No Hepatosplenomegaly, No Masses Extremities: No Clubbing, No Cyanosis, No Edema, Normal Pulses, No Tenderness/Swelling Skin: No Rashes, No Breakdown, No Significant Lesion Neuro: Normal Gait, Normal Speech, Strength at 5/5 X4 Ext, Normal Tone, Sensation Intact Psych/Mental Status: Mental Status NL, Mood NL Results Lab Laboratory Tests 04/21/21 06:30 A/P-Cardiology Admission Diagnosis Acute respiratory failure Anemia Paroxysmal atrial fibrillation Tobaccoism Assessment/Plan Acute on chronic respiratory failure, slight improvement, currently on nasal cannula, improving slowly, managed by primary care team, overall guarded prognosis Gastric ulcer noted by endoscopy, no active bleeding, started on Carafate in addition to PPI, managed by Dr. Cat Anemia, status post blood transfusion, continue to monitor H&H Paroxysmal atrial fibrillation, had transient episode of atrial fibrillation on April 13, 2021, converted back to sinus rhythm on Cardizem drip. Better at this time, continue to monitor Pneumonia, pulmonary infiltrate and pleural effusion, receiving antibiotics. No change on chest x-ray, managed by primary care physician Congestive heart failure, mild elevation in BNP. Echocardiogram showed ejection fraction 50%, started on low-dose diuretics. Continue to monitor Change in mental status, generalized fatigue and lethargy, probably secondary to severe hypoxemia and respiratory failure. Feeling better today Tobaccoism, still an active smoker, discussed with her and her about smoking cessation Multiple rib fractures. History of anemia. Monitor H&H. Debility and generalized weakness, patient was followed by PT/OT AKOSUA NEWELL MD Apr 21, 2021 11:17 am
[2021-04-21 12:00] VITALS: BP 109/69
--- NOTE | 2021-04-21 13:01 | Progress Note - Hospitalist ---
Subjective HPI/CC On Admission Date Seen by Provider: Apr 21, 2021 Time Seen by Provider: 10:10 Subjective/Events-last exam She has not been sleeping well recently. She is still feeling weak. She is not short of breath at this time. She denies any chest pain. She is not having any nausea or vomiting. She has not been eating much. Objective Exam Vital Signs Vital Signs Date Time Temp Pulse Resp B/P (MAP) Pulse Ox O2 Delivery O2 Flow Rate FiO2 04/21/21 12:00 36.2 73 18 109/69 (82) 95 High Flow N/C 2.00 04/19/21 10:41 28 Capillary Refill : General Appearance: No Apparent Distress, Chronically ill Respiratory: No Respiratory Distress, Decreased Breath Sounds Cardiovascular: Regular Rate, Rhythm, No Murmur Gastrointestinal: Normal Bowel Sounds, Non Tender, Soft Extremity: Normal Inspection, Non Tender, Pedal Edema Neurologic/Psychiatric: Alert, Oriented x3, Normal Mood/Affect, Motor Weakness Skin: Normal Color, Warm/Dry Results/Procedures Lab Laboratory Tests 04/21/21 06:30 Patient resulted labs reviewed. Imaging: Reviewed Imaging Report Assessment/Plan Assessment and Plan Assess & Plan/Chief Complaint Acute on chronic respiratory failure with hypoxia Pneumonia Acute exacerbation of severe COPD Current smoker Poor prognosis Continue antibiotics Continue steroids MAT protocol Supplemental oxygen as needed Paroxysmal atrial fibrillation Cardiology consulted, appreciate assistance Currently in normal sinus rhythm Refusing Lovenox Iron deficiency anemia Pyloric ulcer Gastritis Esophagitis s/p EGD/colonoscopy 04/20 Revealed esophagitis, gastritis, pyloric ulcer, diverticulosis, internal and external hemorrhoids Started PPI and Carafate Recent falls Rib fractures Debility PT/OT Planning for discharge to [facility] for ongoing therapies Diagnosis/Problems Diagnosis/Problems (1) Acute and chronic respiratory failure with hypoxia Status: Acute (2) Pneumonia Status: Acute (3) COPD (chronic obstructive pulmonary disease) Status: Acute Qualifiers: COPD type: COPD with acute exacerbation Qualified Codes: J44.1 - Chronic obstructive pulmonary disease with (acute) exacerbation (4) WAYNE (iron deficiency anemia) Status: Acute Qualifiers: Iron deficiency anemia type: chronic blood loss Qualified Codes: D50.0 - Iron deficiency anemia secondary to blood loss (chronic) (5) Esophagitis with gastritis Status: Acute (6) Pyloric ulcer Status: Acute Qualifiers: Gastric ulcer chronicity: acute Qualified Codes: K25.3 - Acute gastric ulcer without hemorrhage or perforation (7) Diverticulosis Status: Acute (8) Internal and external hemorrhoids without complication Status: Acute (9) Atrial fibrillation Status: Acute Qualifiers: Atrial fibrillation type: paroxysmal Qualified Codes: I48.0 - Paroxysmal atrial fibrillation (10) Tobacco abuse Status: Acute (11) Frequent falls Status: Acute (12) Multiple fractures of ribs, bilateral, initial encounter for closed fracture Status: Acute (13) Debility Status: Acute MARGIE FARR MD Apr 21, 2021 13:01
--- NOTE | 2021-04-21 13:25 | Physical Therapy Progress Note ---
Therapy Progress Note Pt's was present and politely declined therapy for Anna due to pt resting. PORSHA OGDEN PT Apr 21, 2021 13:25
[2021-04-21 13:53] VITALS: BP 109/62
[2021-04-21 18:00] VITALS: BP 113/73
[2021-04-21] MEDS: TAMSULOSIN 0.4 MG (FLOMAX) CAP PO SCH (21:28)
[2021-04-21] MEDS: FAMOTIDINE 20 MG (PEPCID) TABLET PO SCH (21:29)
[2021-04-21] MEDS: PATCH REMOVAL TP SCH (21:29)
[2021-04-21] MEDS: PROMETHAZINE/ CODEINE SYRUP 5 ML UDC PO SCH (21:29)
[2021-04-21] MEDS: ALPRAZolam 0.25 MG (XANAX) TAB PO PRN (22:11)
[2021-04-22] MEDS: oxyCODONE/APAP 7.5-325 MG (PERCOCET 7.5) TABLET PO PRN (02:52)
[2021-04-22 05:40] LABS: POTASSIUM 4.9 MMOL/L (3.6-5.0)
[2021-04-22 05:42] LABS: CALCIUM 7.4 MG/DL (8.5-10.1)
[2021-04-22 05:46] LABS: CREATININE SERUM 0.93 MG/DL (0.60-1.30)
[2021-04-22 05:48] LABS: MAGNESIUM 2.1 MG/DL (1.6-2.4)
[2021-04-22] MEDS: MAGNESIUM 1 GM/100 ML IVPB 100 ML IV SCH (05:50)
[2021-04-22] MEDS: KCL 20 MEQ TAB (K-DUR) PO SCH (05:50)
[2021-04-22] MEDS: POTASSIUM CL 10MEQ/50ML IVPB 50 ML IV SCH (05:50)
[2021-04-22 06:40] VITALS: BP 92/53
[2021-04-22] MEDS: SUCRALFATE 1 GM (CARAFATE) TAB PO SCH ×4 (06:44→21:24)
[2021-04-22] MEDS: THYROID (ARMOUR) 60 MG TABLET PO SCH (06:44)
[2021-04-22] MEDS: MULTIVIT W/MINERALS TAB (THERAGRAN M) PO SCH (06:44)
[2021-04-22] MEDS: predniSONE 20 MG TAB PO SCH (06:44)
[2021-04-22] MEDS: SPIRONOLACTONE 25 MG (ALDACTONE) TAB PO SCH (08:57)
[2021-04-22] MEDS: LORATADINE (CLARITIN) 10 MG TAB PO SCH (08:57)
[2021-04-22] MEDS: KCL 10 MEQ TAB (MICRO K) PO SCH (08:57)
[2021-04-22] MEDS: VITAMIN D3 25 MCG (1,000 UNITS) TABLET PO SCH (08:57)
[2021-04-22] MEDS: AUGMENTIN 500 MG TAB (AMOXICILLIN/CLAVULANATE) PO SCH (08:57)
[2021-04-22] MEDS: ASPIRIN 81 MG CHEW (CHILDREN'S ASA) PO SCH (08:57)
[2021-04-22] MEDS: PANTOPRAZOLE 40 MG (PROTONIX) VIAL IV SCH ×2 (08:59→21:24)
[2021-04-22] MEDS: NYSTATIN ORAL SUSP 5 ML UDC PO SCH ×2 (09:00→21:24)
[2021-04-22] MEDS ORDERED: VITAMIN D2 1.25 MG (50,000 UNITS) CAP PO SCH (09:00)
[2021-04-22] MEDS: SENNOSIDES 8.6 MG (SENOKOT) TAB PO SCH ×2 (09:04→21:35)
[2021-04-22] MEDS: NICOTINE 14 MG (NICODERM) PATCH TD SCH (09:04)
[2021-04-22] MEDS: SENNA W/DOCUSATE (SENOKOT S) TABLET PO SCH ×2 (09:04→21:35)
[2021-04-22] MEDS: ZINC OXIDE 16% OINT (BUTT PASTE) 57 GM TUBE TOP SCH ×2 (09:04→21:26)
[2021-04-22] MEDS: LACTULOSE SYRUP 10GM/15ML (ENULOSE) 30ML UDC PO SCH ×2 (09:05→21:35)
[2021-04-22] MEDS: PROPRANOLOL LA 120 MG (INDERAL LA) CAP NON-FORMULARY PO SCH ×2 (09:06→11:54)
[2021-04-22] MEDS: CALCIUM CARBONATE 600 MG (CALCARB) TAB PO SCH (10:01)
[2021-04-22] MEDS: CHLORHEXIDINE 0.12% SOLN 15 ML (PERIDEX) UDC PO SCH ×2 (10:01→21:24)
[2021-04-22] MEDS: IRON SUCROSE 200 MG/10 ML (VENOFER) VIAL IV SCH (10:01)
[2021-04-22] MEDS: RT-ALBUTEROL/IPRATROPIUM 3 ML (DUONEB) VIAL INH SCH ×2 (10:06→20:48)
[2021-04-22] MEDS: FLUTICASONE NASAL SPRAY (FLONASE) 16 GM BTL NS SCH (10:34)
--- NOTE | 2021-04-22 11:50 | Cardiology Progress Note ---
Subjective Date Seen by Provider: Apr 22, 2021 Time Seen by Provider: 11:49 Subjective/Events-last exam Patient was seen at bedside, sitting comfortably in a chair, still having dyspnea Review of Systems General: No Chills, No Night Sweats; Fatigue; No Malaise, No Appetite, No Other HEENT: No Head Aches, No Visual Changes, No Eye Pain, No Ear Pain, No Dysphasia, No Sinus Congestion, No Post Nasal Drip, No Sore Throat, No Other Pulmonary: Dyspnea; No Cough, No Pleuritic Chest Pain, No Other Cardiovascular: No: Chest Pain, Palpitations, Orthopnea, Paroxysmal Noc. Dyspnea, Edema, Lt Headedness, Other Objective-Cardiology Exam Last Set of Vital Signs Vital Signs 04/21/21 04/22/21 04/22/21 13:53 06:40 10:06 Temp 36.3 Pulse 61 Resp 20 B/P (MAP) 92/53 (66) Pulse Ox 98 O2 Delivery Nasal Cannula O2 Flow Rate 3.00 FiO2 28 I&O Intake and Output 04/22/21 00:00 Intake Total 950 ml Balance 950 ml Intake Oral 950 ml # Voids 4 # Bowel Movements 1 General: Alert, Oriented X3, Cooperative HEENT: Atraumatic, PERRLA Neck: Supple, No JVD, No Thyromegaly Lungs: Other (Bilateral rhonchi and wheezing) Heart: Regular Rate, Normal S1, Normal S2, No Murmurs Abdomen: Normal Bowel Sounds, Soft, No Tenderness, No Hepatosplenomegaly, No Masses Extremities: No Clubbing, No Cyanosis, No Edema, Normal Pulses, No Tenderness/Swelling Skin: No Rashes, No Breakdown, No Significant Lesion Neuro: Normal Gait, Normal Speech, Strength at 5/5 X4 Ext, Normal Tone, Sensation Intact Psych/Mental Status: Mental Status NL, Mood NL Results Lab Laboratory Tests 04/22/21 05:15 A/P-Cardiology Admission Diagnosis Acute respiratory failure Anemia Paroxysmal atrial fibrillation Tobaccoism Assessment/Plan Status post acute on chronic respiratory failure, slight improvement, currently on nasal cannula, improving slowly, managed by primary care team, overall guarded prognosis Gastric ulcer noted by endoscopy, no active bleeding, started on Carafate in addition to PPI, managed by Dr. Cat Anemia, status post blood transfusion, continue to monitor H&H Paroxysmal atrial fibrillation, had transient episode of atrial fibrillation on April 13, 2021, converted back to sinus rhythm on Cardizem drip. Better at this time, continue to monitor Pneumonia, pulmonary infiltrate and pleural effusion, receiving antibiotics. No change on chest x-ray, managed by primary care physician Congestive heart failure, mild elevation in BNP. Echocardiogram showed ejection fraction 50%, started on low-dose diuretics. Continue to monitor Change in mental status, generalized fatigue and lethargy, probably secondary to severe hypoxemia and respiratory failure. Feeling better today Tobaccoism, still an active smoker, discussed with her and her about smoking cessation Multiple rib fractures. History of anemia. Monitor H&H. Debility and generalized weakness, patient was followed by PT/OT AKOSUA NEWELL MD Apr 22, 2021 11:50
[2021-04-22] MEDS: LIDOCAINE 4% (SALONPAS) PATCH TOP SCH (15:15)
[2021-04-22 15:55] VITALS: BP 111/70
[2021-04-22 18:00] VITALS: BP 111/70
[2021-04-22] MEDS: FAMOTIDINE 20 MG (PEPCID) TABLET PO SCH (21:24)
[2021-04-22] MEDS: PROMETHAZINE/ CODEINE SYRUP 5 ML UDC PO SCH (21:24)
[2021-04-22] MEDS: PATCH REMOVAL TP SCH (21:26)
[2021-04-23 04:31] VITALS: BP 111/70
[2021-04-23 06:18] VITALS: BP 96/60
[2021-04-23 06:21] LABS: BASOPHILS % (AUTO) 0 % (0-10); EOSINOPHILS # (AUTO) 0.1 10^3/uL (0.0-0.3); EOSINOPHILS % (AUTO) 1 % (0-10); HEMATOCRIT 25 % (35-52); LYMPHOCYTES # (AUTO) 1.3 10^3/uL (1.0-4.0); LYMPHOCYTES % (AUTO) 13 % (12-44); MEAN CORPUSCULAR HEMOGLOBIN 30 pg (25-34); MEAN CORPUSCULAR HGB CONC 32 g/dL (32-36); MEAN CORPUSCULAR VOLUME 97 fL (80-99); MEAN PLATELET VOLUME 9.7 fL (9.0-12.2); MONOCYTES % (AUTO) 10 % (0-12); NEUTROPHILS # (AUTO) 7.5 10^3/uL (1.8-7.8); NEUTROPHILS % (AUTO) 71 % (42-75); PLATELET COUNT 236 10^3/uL (130-400); WHITE BLOOD COUNT 10.7 10^3/uL (4.3-11.0)
[2021-04-23] MEDS: THYROID (ARMOUR) 60 MG TABLET PO SCH (06:21)
[2021-04-23] MEDS: predniSONE 20 MG TAB PO SCH (06:21)
[2021-04-23] MEDS: SUCRALFATE 1 GM (CARAFATE) TAB PO SCH ×2 (06:21→10:18)
[2021-04-23] MEDS: MULTIVIT W/MINERALS TAB (THERAGRAN M) PO SCH (06:21)
[2021-04-23 06:23] LABS: SMEAR SCAN COMMENT YES
[2021-04-23 06:32] LABS: CHLORIDE 104 MMOL/L (98-107); POTASSIUM 4.7 MMOL/L (3.6-5.0); SODIUM 134 MMOL/L (135-145)
[2021-04-23 06:33] LABS: CALCIUM 7.8 MG/DL (8.5-10.1)
[2021-04-23 06:34] LABS: GLUCOSE 92 MG/DL (70-105)
[2021-04-23 06:35] LABS: CARBON DIOXIDE 24 MMOL/L (21-32)
[2021-04-23] MEDS: POTASSIUM CL 10MEQ/50ML IVPB 50 ML IV SCH (06:37)
[2021-04-23] MEDS: KCL 20 MEQ TAB (K-DUR) PO SCH (06:37)
[2021-04-23 06:38] LABS: CREATININE SERUM 0.79 MG/DL (0.60-1.30); GFR ESTIMATED > 60
[2021-04-23 06:39] LABS: BUN/CREATININE RATIO 14
[2021-04-23 06:40] LABS: MAGNESIUM 1.9 MG/DL (1.6-2.4)
[2021-04-23] MEDS: MAGNESIUM 1 GM/100 ML IVPB 100 ML IV SCH (06:44)
[2021-04-23] MEDS: RT-ALBUTEROL/IPRATROPIUM 3 ML (DUONEB) VIAL INH SCH (07:23)
[2021-04-23] MEDS: SENNA W/DOCUSATE (SENOKOT S) TABLET PO SCH (09:00)
[2021-04-23] MEDS: LACTULOSE SYRUP 10GM/15ML (ENULOSE) 30ML UDC PO SCH (09:00)
[2021-04-23] MEDS: SENNOSIDES 8.6 MG (SENOKOT) TAB PO SCH (09:00)
[2021-04-23] MEDS ORDERED: ENOXAPARIN 40 MG/0.4 ML (LOVENOX) SYR SQ SCH (09:00)
[2021-04-23] MEDS ORDERED: PANT40TA2 PO (10:10)
[2021-04-23] MEDS ORDERED: HYDR-3820 PO (10:10)
[2021-04-23] MEDS ORDERED: SUCR1TAB PO (10:10)
[2021-04-23] MEDS ORDERED: NYST1000 PO (10:10)
--- NOTE | 2021-04-23 10:12 | Discharge Inst-Skilled Nursing ---
Discharge Inst-Skilled NF Consult/Follow Up/Orders Follow Up Appt.: within [address] Pereira Skilled NF Admit to: Via [facility] Certification ([facility]) I certify that SNF services are required to be given on an inpatient basis because of the above named patient's need for [facility] care on a continuing basis for the conditions(s) for which he/she was receiving inpatient hospital services prior to his/her transfer to the SNF. Detention Facility Order: Nursing Services, Director Of Marketing-Evaluate & Treat, Physical Therapy-Evaluate & Treat Oxygen Delivery Method: Nasal Cannula Oxygen Flow Rate L/min (Range): 3 Discharge Diet: Other Diet (Peptic ulcer diet) Daily Activity as Tolerated: Yes Resuscitation Status: Do Not Resuscitate New & Resume Previous Orders Jaycob Navarro Apr 23, 2021 10:11 JAYCOB NAVARRO MD Apr 23, 2021 10:12
--- NOTE | 2021-04-23 10:15 | Discharge Summary ---
Diagnosis/Chief Complaint Date of Admission Apr 18, 2021 at 11:59 Date of Discharge Discharge Date: Apr 23, 2021 Primary Care Christiano Pereira MD Discharge Diagnosis (1) Acute and chronic respiratory failure with hypoxia Status: Acute (2) Pneumonia Status: Acute (3) COPD (chronic obstructive pulmonary disease) Status: Acute (4) WAYNE (iron deficiency anemia) Status: Acute (5) Esophagitis with gastritis Status: Acute (6) Pyloric ulcer Status: Acute (7) Diverticulosis Status: Acute (8) Internal and external hemorrhoids without complication Status: Acute (9) Atrial fibrillation Status: Acute (10) Tobacco abuse Status: Acute (11) Frequent falls Status: Acute (12) Multiple fractures of ribs, bilateral, initial encounter for closed fracture Status: Acute (13) Debility Status: Acute Discharge Summary Discharge Physical Exam Allergies: Coded Allergies: nitrofurantoin (Verified Allergy, Severe, RASH, 12/10/15) ITCHING AND RASH sulfamethoxazole (Verified Allergy, Severe, RASH, 12/10/15) ITCHING AND RASH trimethoprim (Verified Allergy, Severe, RASH, 12/10/15) ITCHING AND RASH azithromycin (Verified Allergy, Unknown, 08/14/14) cefixime (Verified Allergy, Unknown, 08/14/14) Vitals & I&Os Vital Signs Date Time Temp Pulse Resp B/P (MAP) Pulse Ox O2 Delivery O2 Flow Rate FiO2 04/23/21 07:24 94 Nasal Cannula 3.00 04/23/21 06:18 36.5 61 20 96/60 (72) 04/23/21 04:31 28 Hospital Course Labs (last 24 hrs) Laboratory Tests 04/23/21 06:14: White Blood Count 10.7, Red Blood Count 2.63L, Hemoglobin 8.0L, Hematocrit 25L, Mean Corpuscular Volume 97, Mean Corpuscular Hemoglobin 30, Mean Corpuscular Hemoglobin Concent 32, Red Cell Distribution Width 15.5H, Platelet Count 236, Mean Platelet Volume 9.7, Immature Granulocyte % (Auto) 6, Neutrophils (%) (Auto) 71, Lymphocytes (%) (Auto) 13, Monocytes (%) (Auto) 10, Eosinophils (%) (Auto) 1, Basophils (%) (Auto) 0, Neutrophils # (Auto) 7.5, Lymphocytes # (Auto) 1.3, Monocytes # (Auto) 1.0, Eosinophils # (Auto) 0.1, Basophils # (Auto) 0.0, Immature Granulocyte # (Auto) 0.6H, Sodium Level 134L, Potassium Level 4.7, Chloride Level 104, Carbon Dioxide Level 24, Anion Gap 6, Blood Urea Nitrogen 11, Creatinine 0.79, Estimat Glomerular Filtration Rate > 60, BUN/Creatinine Ratio 14, Glucose Level 92, Calcium Level 7.8L, Magnesium Level 1.9, Smear Scan YES Patient resulted labs reviewed. Pending Labs Laboratory Tests 04/23/21 06:14: White Blood Count 10.7, Red Blood Count 2.63, Hemoglobin 8.0, Hematocrit 25, Mean Corpuscular Volume 97, Mean Corpuscular Hemoglobin 30, Mean Corpuscular Hemoglobin Concent 32, Red Cell Distribution Width 15.5, Platelet Count 236, Mean Platelet Volume 9.7, Immature Granulocyte % (Auto) 6, Neutrophils (%) (Auto) 71, Lymphocytes (%) (Auto) 13, Monocytes (%) (Auto) 10, Eosinophils (%) (Auto) 1, Basophils (%) (Auto) 0, Neutrophils # (Auto) 7.5, Lymphocytes # (Auto) 1.3, Monocytes # (Auto) 1.0, Eosinophils # (Auto) 0.1, Basophils # (Auto) 0.0, Immature Granulocyte # (Auto) 0.6, Sodium Level 134, Potassium Level 4.7, Chloride Level 104, Carbon Dioxide Level 24, Anion Gap 6, Blood Urea Nitrogen 11, Creatinine 0.79, Estimat Glomerular Filtration Rate > 60, BUN/Creatinine Ratio 14, Glucose Level 92, Calcium Level 7.8, Magnesium Level 1.9, Smear Scan YES Imaging: Reviewed Imaging Report Discharge Home Medications: Active Scripts Active Protonix (Pantoprazole Sodium) 40 Mg Tablet.dr 40 Mg PO DAILY Sucralfate 1 Gm Tablet 1 Gm PO ACHS Nystatin 100,000 Unit/1 Ml Oral.susp 15 Ml PO BID Hydrocodone-Acetamin 10-325 mg (Hydrocodone/Acetaminophen) 1 Each Tablet 1 Each PO Q6H PRN Reported [place] Thyroid (Thyroid,Pork) 60 Mg Tablet 90 Mg PO DAILY TAKES 1 & (60MG) TABS Vitamin D2 (Ergocalciferol (Vitamin D2)) 1,250 Mcg Capsule 1,250 Mcg PO FRIDAY Rhinocort Allergy (Budesonide) 8.43 Ml [place].pump 2 Sprays NS DAILY Flintstones with Iron Tab Chew (Pedi Mv No.79/Ferrous Fumarate) 18 Mg Tab.chew 18 Mg PO DAILY Prednisone 5 Mg Tablet 10 Mg PO DAILY TAKES 2 (5MG) TABLETS Citalopram HBr (Citalopram Hydrobromide) 20 Mg Tablet 20 Mg PO HS Promethazine-Codeine Solution (Promethazine HCl/Codeine) 473 Ml Syrup 5 Ml PO HS Propranolol HCl ER (Propranolol HCl) 120 Mg Cap.sa.24h 120 Mg PO DAILY LAST FILLED 01-26-2021 #30/30 DAY SUPPLY Chlorhexidine Gluconate 473 Ml Mouthwash 15 Ml PO BID TAKES AFTER BREATHING TREATMENTS Proair Hfa (Albuterol Sulfate) 1 Puff Puff 2 Puff IH Q4H PRN Zyrtec (Cetirizine HCl) 10 Mg Tablet 10 Mg PO DAILY Flomax (Tamsulosin HCl) 0.4 Mg Cap 0.4 Mg PO HS Perforomist (Formoterol Fumarate) 20 Mcg/2 Ml Vial.neb 20 Mcg IH BID Ipratropium Dell 0.2 Mg/1 Ml Solution 0.2 Mg IH TID PRN Lasix (Furosemide) 40 Mg Tablet 40 Mg PO DAILY Potassium Chloride 10 Meq Tab.er.prt 10 Meq PO DAILY Vitamin D3 (Cholecalciferol (Vitamin D3)) 50 Mcg Capsule 50 Mcg PO DAILY Calcium (Calcium Carbonate) 600 Mg Tablet 1,200 Mg PO DAILY Spironolactone 25 Mg Tablet 25 Mg PO DAILY Aspirin 81 Mg Tab.chew 81 Mg PO DAILY Instructions to patient/family Please see electronic discharge instructions given to patient. Problem Qualifiers (1) COPD (chronic obstructive pulmonary disease): COPD type: COPD with acute exacerbation Qualified Codes: J44.1 - Chronic o bstructive pulmonary disease with (acute) exacerbation (2) WAYNE (iron deficiency anemia): Iron deficiency anemia type: chronic blood loss Qualified Codes: D50.0 - Iron deficiency anemia secondary to blood loss (chronic) (3) Pyloric ulcer: Gastric ulcer chronicity: acute Qualified Codes: K25.3 - Acute gastric ulcer without hemorrhage or perforation (4) Atrial fibrillation: Atrial fibrillation type: paroxysmal Qualified Codes: I48.0 - Paroxysmal atrial fibrillation JAYCOB FRIEDMAN MD Apr 23, 2021 10:14
[2021-04-23] MEDS: PANTOPRAZOLE 40 MG (PROTONIX) VIAL IV SCH (10:17)
[2021-04-23] MEDS: ASPIRIN 81 MG CHEW (CHILDREN'S ASA) PO SCH (10:17)
[2021-04-23] MEDS: VITAMIN D3 25 MCG (1,000 UNITS) TABLET PO SCH (10:18)
[2021-04-23] MEDS: KCL 10 MEQ TAB (MICRO K) PO SCH (10:18)
[2021-04-23] MEDS: NYSTATIN ORAL SUSP 5 ML UDC PO SCH (10:18)
[2021-04-23] MEDS: SPIRONOLACTONE 25 MG (ALDACTONE) TAB PO SCH (10:18)
[2021-04-23] MEDS: LORATADINE (CLARITIN) 10 MG TAB PO SCH (10:18)
[2021-04-23] MEDS: CALCIUM CARBONATE 600 MG (CALCARB) TAB PO SCH (10:19)
[2021-04-23] MEDS: CHLORHEXIDINE 0.12% SOLN 15 ML (PERIDEX) UDC PO SCH (10:28)
[2021-04-23] MEDS: FLUTICASONE NASAL SPRAY (FLONASE) 16 GM BTL NS SCH (10:28)
[2021-04-23] MEDS: NICOTINE 14 MG (NICODERM) PATCH TD SCH (10:29)
[2021-04-23] MEDS: ZINC OXIDE 16% OINT (BUTT PASTE) 57 GM TUBE TOP SCH (10:29)
[2021-04-23] MEDS: LIDOCAINE 4% (SALONPAS) PATCH TOP SCH (10:39)
--- NOTE | 2021-04-23 10:46 | Cardiology Progress Note ---
Subjective Date Seen by Provider: Apr 23, 2021 Time Seen by Provider: 10:45 Subjective/Events-last exam Patient was seen at bedside, sitting comfortably, feeling better today, breathing better today Review of Systems General: No Chills, No Night Sweats; Fatigue; No Malaise, No Appetite, No Other HEENT: No Head Aches, No Visual Changes, No Eye Pain, No Ear Pain, No D ysphasia, No Sinus Congestion, No Post Nasal Drip, No Sore Throat, No Other Pulmonary: Dyspnea; No Cough, No Pleuritic Chest Pain, No Other Cardiovascular: No: Chest Pain, Palpitations, Orthopnea, Paroxysmal Noc. Dyspnea, Edema, Lt Headedness, Other Objective-Cardiology Exam Last Set of Vital Signs Vital Signs 04/23/21 04/23/21 04/23/21 04:31 06:18 07:24 Temp 36.5 Pulse 61 Resp 20 B/P (MAP) 96/60 (72) Pulse Ox 94 O2 Delivery Nasal Cannula O2 Flow Rate 3.00 FiO2 28 I&O Intake and Output 04/22/21 23:59 Intake Total 1530 ml Output Total 400 ml Balance 1130 ml Intake Oral 1530 ml Output Urine Total 400 ml # Voids 2 # Bowel Movements 1 General: Alert, Oriented X3, Cooperative HEENT: Atraumatic, PERRLA Neck: Supple, No JVD, No Thyromegaly Lungs: Other (Bilateral rhonchi and wheezing) Heart: Regular Rate, Normal S1, Normal S2, No Murmurs Abdomen: Normal Bowel Sounds, Soft, No Tenderness, No Hepatosplenomegaly, No Masses Extremities: No Clubbing, No Cyanosis, No Edema, Normal Pulses, No Tenderness/Swelling Skin: No Rashes, No Breakdown, No Significant Lesion Neuro: Normal Gait, Normal Speech, Strength at 5/5 X4 Ext, Normal Tone, Sensation Intact Psych/Mental Status: Mental Status NL, Mood NL Results Lab Laboratory Tests 04/23/21 06:14 A/P-Cardiology Admission Diagnosis Acute respiratory failure Anemia Paroxysmal atrial fibrillation Tobaccoism Assessment/Plan Status post acute on chronic respiratory failure, slight improvement, currently on nasal cannula, improving slowly, managed by primary care team, overall guarded prognosis Gastric ulcer noted by endoscopy, no active bleeding, started on Carafate in addition to PPI, managed by Dr. Cat Anemia, status post blood transfusion, continue to monitor H&H Paroxysmal atrial fibrillation, had transient episode of atrial fibrillation on April 13, 2021, converted back to sinus rhythm on Cardizem drip. Better at this time, continue to monitor Pneumonia, pulmonary infiltrate and pleural effusion, receiving antibiotics. No change on chest x-ray, managed by primary care physician Congestive heart failure, mild elevation in BNP. Echocardiogram showed ejection fraction 50%, started on low-dose diuretics. Continue to monitor Change in mental status, generalized fatigue and lethargy, probably secondary to severe hypoxemia and respiratory failure. Feeling better today Tobaccoism, still an active smoker, discussed with her and her about smoking cessation Multiple rib fractures. History of anemia. Monitor H&H. Debility and generalized weakness, patient was followed by PT/OT AKOSUA NEWELL MD Apr 23, 2021 10:46 am
--- NOTE | 2021-04-23 11:46 | Therapy Team Discharge Summary ---
Therapy Discharge Summary Discharge Recommendations Date of Discharge Physical Therapy Patient continues to require minimal assist with all mobility and much encouragement to participate with therapy. Patient ambulates with FWW and O2 minimal assist x 20-30' with noted increase SOA with HF O2. Patient tolerates minimal activity and requires much education to increase activity to ensure safe return to home. Patient bed mobility and transfers are minimal assist. PT to continue at [place]. Goals address but not attained. Occupational Therapy Decreased Activ Tolerance PT Health Promotion Specialist Goals Senior Care Goals PT Senior Care Goals Time Frame: May 02, 2021 Roll Left to Right (QC): 6 Sit to Lying (QC): 4 Lying-Sitting on Side/Bed(QC): 4 Sit to Stand (QC): 4 Chair/Iot-qk-Cecyc Xfer(QC): 4 Car Transfer (QC): 4 Does the Patient Walk: Yes Walk 10 feet (QC): 4 Walk 10ft-Uneven Surface(QC): 88 Walk 50ft with 2 Turns (QC): 4 Walk 150 ft (QC): 88 Wheel 50 feet with 2 turns (QC: 9 1 Step (curb) (QC): 3 4 Steps (QC): 3 12 Steps (QC): 88 Picking up an Object (QC): 88 OT Senior Care Goals Health Promotion Specialist Goals Time Frame: May 02, 2021 Eating (QC): 6 Oral Hygiene (QC): 6 Shower/Bathe Self (QC): 4 Upper Body Dressing (QC): 5 Lower Body Dressing (QC): 4 On/Off Footwear (QC): 4 Toileting Hygiene (QC): 4 Toilet/Commode Transfer (QC): 4 Additional Goals: 1-Demonstrate ADL Tasks, 2-Verbalize Understanding, 3- ImproveStrength/Kaleigh 1=Demonstrate adherence to instructed precautions during ADL tasks. 2=Patient will verbalize/demonstrate understanding of assistive devices/modifications for ADL. 3=Patient will improve strength/tolerance for activity to enable patient to perform ADL's. JOHNSON FELIZ PT Apr 23, 2021 11:46
--- NOTE | 2021-04-23 12:43 | Occupational Ther Daily Note ---
OT Current Status-Daily Note Subjective Pt alert and oriented, sitting in recliner. Pt declines to participate in ADLs stating that they are just going to bundle me up and take me to [facility]. Encouraged pt to don clothing, brush teeth and pt continued to decline to participate stating that she will be leaving shortly. Mental Status/Objective Patient Orientation: Person, Place, Time, Situation Attachments: Oxygen ADL-Treatment Pt stated that she had shower 04/22/21. As described, pt sat on shower bench and completed shower using hand held shower, grabbars. Pt unable to stand up from bench on own, required assistance to cleanse feet. Pt stated that she was able to reach all other areas by self. Pt also stated that she had gotten herself the bathroom and completed toileting independently. Pt has demonstrated that she is able to complete oral care and eating independently. Pt does fatigue quickly and then requires recovery break and at time more assistance. Pt continued to decline participating in OT session. Reported to nrsg. Pt sitting in recliner with call light/phone in reach. All needs met in room. Therapy Code Descriptions/Definitions Functional Elbert Measure: 0=Not Assessed/NA 4=Minimal Assistance 1=Total Assistance 5=Supervision or Setup 2=Maximal Assistance 6=Modified Elbert 3=Moderate Assistance 7=Complete IndependenceSCALE: Activities may be completed with or without assistive devices. 2-Cufvhzgifx-unopeql completes the activity by him/herself with no assistance from a helper. 5-Set-up or Clean-up Assistance-helper sets up or cleans up; patient completes activity. [place] assists only prior to or following the activity. 4-Supervision or Touching Assistance-helper provides verbal cues and/or touching/steadying and/or contact guard assistance as patient completes activity. Assistance may be provided throughout the activity or intermittently. 3-Partial/Moderate Assistance-helper does LESS THAN HALF the effort. [place] lifts, holds or supports trunk or limbs, but provides less than half the effort. 2-Substantial/Maximal Assistance-helper does MORE THAN HALF the effort. [place] lifts or holds trunk or limbs and provides more than half the effort. 8-Igcwsuwbu-ilrzak does ALL the effort. Patient does none of the effort to complete the activity. Or, the assistance of 2 or more helpers is required for the patient to complete the activity. If activity was not attempted, code reason: 7-Patient Refused. 9-Not Applicable-not attempted and the patient did not perform the activity before the current illness, exacerbation or injury. 10-Not Attempted due to Environmental Limitations-(lack of equipment, weather restraints, etc.). 88-Not Attempted due to Medical Conditions or Safety Concerns. Eating (QC): 6 Oral Hygiene (QC): 6 Shower/Bathe Self (QC): 3 Upper Body Dressing (QC): 5 Lower Body Dressing (QC): 4 On/Off Footwear: 3 Toileting Hygiene (QC): 6 Toilet Transfer (QC): 6 OT Terrazzo Supervisor Goals Detention Goals Time Frame: May 02, 2021 Eating (QC): 6 Oral Hygiene (QC): 6 Toileting Hygiene (QC): 4 Shower/Bathe Self (QC): 4 Upper Body Dressing (QC): 5 Lower Body Dressing (QC): 4 On/Off Footwear (QC): 4 Additional Goals: 1-Demonstrate ADL Tasks, 2-Verbalize Understanding, 3- ImproveStrength/Kaleigh 1=Demonstrate adherence to instructed precautions during ADL tasks. 2=Patient will verbalize/demonstrate understanding of assistive devices/modifications for ADL. 3=Patient will improve strength/tolerance for activity to enable patient to perform ADL's. OT Education/Plan Problem List/Assessment Assessment: Decreased Activ Tolerance, Decreased UE Strength, Impaired Self- Care Skills Discharge Recommendations Plan/Recommendations: Continue POC Treatment Plan/Plan of Care Patient would benefit from OT for education, treatment and training to promote independence in ADL's, mobility, safety and/or upper extremity function for ADL's. Plan of Care: ADL Retraining, Caregiver Training, Functional Mobility, UE Funct Exercise/Act, W/C Management Training Treatment Duration: May 02, 2021 Frequency: 5 times per week Estimated Hrs Per Day: .25 hour per day Agreement: Yes Rehab Potential: Fair Time/GCodes Start Time: 11:20 Stop Time: 11:28 Total Time Billed (hr/min): 8 Billed Treatment Time 1 visit-FA 1 (8 min) ERIK DE LA GARZA Apr 23, 2021 12:43
[2021-04-23 13:20] VITALS: BP 96/60
--- NOTE | 2021-04-24 15:31 | Therapy Team Discharge Summary ---
Therapy Discharge Summary Discharge Recommendations Date of Discharge Apr 23, 2021 at 13:20 Occupational Therapy Pt admitted to [facility]. At OF, pt indicates independent with most ADLs, requiring min A with lower body dressing. Upon initial evaluation, pt required set up assistance with eating, IND oral care, min A showering, set up upper body dressing, mod A lower body dressing, total assist footwear, and min A toileting. OT tx focused on increasing BUE Strength and activity tolerance, and increasing safety and independence with ADLs. At discharge, pt IND with eating, oral care and toileting, required set up assistance UE dressing, min A showering, CGA lower body dressing, and mod A footwear. LTGs addressed, pt made functional progress towards goals, but did not attain all LTGs. Pt discharged to SNF, OT recommended to continue. Pt discharged from this facility, d/c from OT. Decreased Activ Tolerance, Decreased UE Strength, Impaired Self-Care Skills PT Mcfp Goals Mcfp Goals PT Periodicals Clerk Goals Time Frame: May 02, 2021 Roll Left to Right (QC): 6 Sit to Lying (QC): 4 Lying-Sitting on Side/Bed(QC): 4 Sit to Stand (QC): 4 Chair/Pna-yx-Ogasr Xfer(QC): 4 Car Transfer (QC): 4 Does the Patient Walk: Yes Walk 10 feet (QC): 4 Walk 10ft-Uneven Surface(QC): 88 Walk 50ft with 2 Turns (QC): 4 Walk 150 ft (QC): 88 Wheel 50 feet with 2 turns (QC: 9 1 Step (curb) (QC): 3 4 Steps (QC): 3 12 Steps (QC): 88 Picking up an Object (QC): 88 OT Mcfp Goals Mcfp Goals Time Frame: May 02, 2021 Eating (QC): 6 (met) Oral Hygiene (QC): 6 (met) Shower/Bathe Self (QC): 4 (not met) Upper Body Dressing (QC): 5 (met) Lower Body Dressing (QC): 4 (met) On/Off Footwear (QC): 4 (not met) Toileting Hygiene (QC): 4 (met) Toilet/Commode Transfer (QC): 4 (met) Additional Goals: 1-Demonstrate ADL Tasks, 2-Verbalize Understanding, 3-ImproveStrength/K[place] 1=Demonstrate adherence to instructed precautions during ADL tasks. 2=Patient will verbalize/demonstrate understanding of assistive devices/modifications for ADL. 3=Patient will improve strength/tolerance for activity to enable patient to perform ADL's. SRINIVASAN LANGE OT Apr 24, 2021 15:31
== END 2021-04-23 13:20 | DRG 193 ==
LOC: 4TH 11:59
PROVIDERS: ADMIT Internal Medicine; ATTEND Family Medicine
PROC: 0DJD8ZZ Inspection of Lower Intestinal Tract, Via Natural or Artificial Opening Endoscopic (ICD-10-PCS; 2021-04-20)
PROC: 0DB78ZX Excision of Stomach, Pylorus, Via Natural or Artificial Opening Endoscopic, Diagnostic (ICD-10-PCS; principal; 2021-04-20 14:05)
PROC: 0DB48ZX Excision of Esophagogastric Junction, Via Natural or Artificial Opening Endoscopic, Diagnostic (ICD-10-PCS; 2021-04-20 14:05)
DX: J18.9 Pneumonia, unspecified organism (principal); J96.21 Acute and chronic respiratory failure with hypoxia; K25.4 Chronic or unspecified gastric ulcer with hemorrhage; J44.0 Chronic obstructive pulmonary disease with (acute) lower respiratory infection; J44.1 Chronic obstructive pulmonary disease with (acute) exacerbation; Z99.81 Dependence on supplemental oxygen; S22.43XD Multiple fractures of ribs, bilateral, subsequent encounter for fracture with routine healing; D50.9 Iron deficiency anemia, unspecified; I11.0 Hypertensive heart disease with heart failure; I50.9 Heart failure, unspecified; M81.0 Age-related osteoporosis without current pathological fracture; M19.91 Primary osteoarthritis, unspecified site; F41.9 Anxiety disorder, unspecified; F17.210 Nicotine dependence, cigarettes, uncomplicated; I48.0 Paroxysmal atrial fibrillation; K21.00 Gastro-esophageal reflux disease with esophagitis, without bleeding; K29.70 Gastritis, unspecified, without bleeding; K44.9 Diaphragmatic hernia without obstruction or gangrene; K64.1 Second degree hemorrhoids; K57.90 Diverticulosis of intestine, part unspecified, without perforation or abscess without bleeding; Z79.82 Long term (current) use of aspirin; Z79.52 Long term (current) use of systemic steroids
CPT/HCPCS: 36415; 80048; 80053; 83735; 85025; 94640; 94760

== ENCOUNTER 2021-06-13 13:10 | Inpatient (IN) | payer MEDICARE ==
[~2021-06-13] VITALS: Ht 160 cm; Wt 68.0 kg
[~2021-06-13 13:10] MED LIST changes: -ACETAMINOPHEN 325 MG TABLET PO PRN; -ANTACID SUSP 30 ML UDC (MYLANTA) PO PRN; -BISACODYL 10 MG SUPP (DULCOLAX) PR PRN; -CALCIUM CARBONATE 500 MG (TUMS) TAB.CHEW PO PRN; -DOCUSATE SODIUM 100 MG (COLACE) CAP PO PRN; -ENOXAPARIN 60 MG/0.6 ML (LOVENOX) SYR SC SCH; -FLEET ENEMA ADULT 1 EA BTL PR PRN; -FORM20VI IH; +FORM20VI NEB; -LOPERAMIDE 2 MG (IMODIUM) TABLET PO PRN; -LORazepam INJ 2 MG/ML (ATIVAN) VIAL IVP PRN; -MELATONIN 3 MG TABLET PO PRN; -NS IV 500 ML 500 ML IV SCH; -ONDANSETRON 4 MG (ZOFRAN) ORAL DISSOLVE TAB PO PRN; -ONDANSETRON 4 MG/2 ML (SDV) Z0FRAN IV PRN; +PANT40TA2 PO; -RT-ALBUTEROL SULF 2.5 MG/3 ML PRE-MIX VIAL IH PRN; -RT-IPRATROPIUM (ATROVENT) 0.5MG/2.5ML AMP IH PRN; +SUCR1TAB PO; -diphenhydrAMINE 25 MG TAB (BENADRYL) PO PRN; -fentaNYL INJ 100 MCG/2 ML AMP IV PRN; -guaiFENesin/CODEINE (ROBITUSSIN AC) 10ML UDC PO PRN; -morphine INJ 10 MG/ML 1ML (SYR OR VIAL) IVP PRN; -polyethylene glycoL POWDER 17 GM (MIRALAX) PACK PO PRN
--- NOTE | 2021-06-13 13:36 | ED General ---
General Stated Complaint: AMS Source of Information: EMS Exam Limitations: Physical Impairments History of Present Illness Date Seen by Provider: Jun 13, 2021 Time Seen by Provider: 13:15 Initial Comments Patient is a 76-year-old female who presents from home by EMS with a chief complaint of increasing altered mental status over 3 days. Patient is a poor h istorian, will not converse for me all she does is lay in the bed and moaning. When asked specific things like to you have a headache she will say abruptly "no". She also denies chest pain. She would not answer the question of whether or not she has abdominal pain. She states "I am cold". When I asked her to open her eyes she said "no" and when I asked her why she said "because I do not want to". I am unable to gather any other history as the patient will not otherwise converse. Patient known to wear oxygen at home at 3 L. EMS reported that the patient was hypoxic at 80% on 5 L per nasal cannula in route. Covid vaccination status unknown, Covid exposure unknown. Further history from her is that she has had a fairly rapid decline over the last 3 to 4 days, not conversing, not interacting or answering questions. He was concerned for stroke. He is asking if she can go back over to [facility] for rehab after her admission again here as she did so well back earlier in the summer when she was admitted for similar complaints. Timing/Duration: 3-4 Days Allergies and Home Medications Allergies Coded Allergies: nitrofurantoin (Verified Allergy, Severe, RASH, 12/10/15) ITCHING AND RASH sulfamethoxazole (Verified Allergy, Severe, RASH, 12/10/15) ITCHING AND RASH trimethoprim (Verified Allergy, Severe, RASH, 12/10/15) ITCHING AND RASH azithromycin (Verified Allergy, Unknown, 08/14/14) cefixime (Verified Allergy, Unknown, 08/14/14) Home Medications Acetaminophen 325 Mg Capsule, 325-650 MG PO Q8H PRN for PAIN-MILD (1-4), (Reported) Last Action: Held Albuterol Sulfate 1 Puff Puff, 2 PUFF IH Q4H PRN for WHEEZING, (Reported) Last Action: Held Alprazolam 0.5 Mg Tablet, 0.5 MG PO BID PRN for ANXIETY, (Reported) Last Action: Continued Aspirin 81 Mg Tab.chew, 81 MG PO DAILY, (Reported) Last Action: Continued Budesonide 8.43 Ml [place].pump, 2 SPRAYS NS DAILY, (Reported) Last Action: Converted Calcium Carbonate 600 Mg Tablet, 1,200 MG PO DAILY, (Reported) Last Action: Held Cetirizine HCl 10 Mg Tablet, 10 MG PO DAILY, (Reported) Last Action: Converted Chlorhexidine Gluconate 473 Ml Mouthwash, 15 ML PO BID, (Reported) TAKES AFTER BREATHING TREATMENTS Last Action: Held Cholecalciferol (Vitamin D3) 50 Mcg Capsule, 50 MCG PO DAILY, (Reported) Last Action: Held Citalopram Hydrobromide 20 Mg Tablet, 20 MG PO HS, (Reported) Last Action: Continued Ergocalciferol (Vitamin D2) 1,250 Mcg Capsule, 1,250 MCG PO FRIDAY, (Reported) LAST FILLED 04-01-2021 #4/28 DAY SUPPLY Last Action: Held Formoterol Fumarate 20 Mcg/2 Ml Vial.neb, 2 ML NEB BID, (Reported) Last Action: Converted Furosemide 40 Mg Tablet, 40 MG PO DAILY, (Reported) Last Action: Held Hydrocodone/Acetaminophen 1 Each Tablet, 1 EACH PO QID PRN for PAIN-MODERATE (5- 7), (Reported) Last Action: Held Ipratropium [place] 0.2 Mg/1 Ml Solution, 0.2 MG IH TID PRN for SHORTNESS OF BREATH, (Reported) Last Action: Held Pedi Mv No.79/Ferrous Fumarate 18 Mg Tab.chew, 18 MG PO DAILY, (Reported) Last Action: Held Potassium Chloride 10 Meq Tablet.er, 10 MEQ PO DAILY, (Reported) Last Action: Held Prednisone 5 Mg Tablet, 10 MG PO DAILY, (Reported) LAST FILLED 01-26-2021 #60/30 DAY SUPPLY TAKES 2 (5MG) TABLETS Last Action: Continued Promethazine HCl/Codeine 473 Ml Syrup, 5 ML PO HS, (Reported) Last Action: Held Propranolol HCl 120 Mg Cap.sa.24h, 120 MG PO DAILY, (Reported) LAST FILLED 01-26-2021 #30/30 DAY SUPPLY Last Action: Held Spironolactone 25 Mg Tablet, 25 MG PO DAILY, (Reported) Last Action: Held Tamsulosin HCl 0.4 Mg Cap, 0.4 MG PO HS, (Reported) Last Action: Continued Thyroid,Pork 60 Mg Tablet, 90 MG PO DAILY, (Reported) TAKES 1 & (60MG) TABS Last Action: Continued Patient Home Medication List Home Medication List Reviewed: Yes Review of Systems Review of Systems Constitutional: see HPI Cardiovascular: no symptoms reported Psychiatric/Neurological: Denies Headache Past Jxewraf-Irngql-Ykelxp Hx Immunizations Up To Date PED Vaccines UTD: No Seasonal Allergies Seasonal Allergies: Yes Past Medical History Surgeries: Yes (cervical spine, teeth removal) Breast, Orthopedic, Thyroidectomy Respiratory: Yes Pneumonia, COPD Cardiac: No (lower extremity edema) Hypertension Neurological: Yes (TREMORS) Headaches /Migraines Reproductive Disorders: No Female Reproductive Disorders: Denies Genitourinary: Yes (retention) Bladder Infection Gastrointestinal: No Musculoskeletal: Yes (CERVICAL SPINE SX) Osteoporosis, Chronic Back Pain Endocrine: Yes (BENIGN THYROID TUMOR) Hypothyroidsim HEENT: No Cancer: No Psychosocial: Yes Anxiety Integumentary: No Blood Disorders: No Family Medical History Bladder problems G8 SISTER FH: lung cancer 19 FATHER Thyroid disease 19 MOTHER Cancer Physical Exam-Suspected Sepsis Physical Exam Vital Signs Vital Signs - First Documented 06/13/21 16:24 FiO2 21 Capillary Refill : Height, Weight, BMI Height: 5'3.00" Weight: 110lbs. 0.0oz. 49.957614kj; 24.49 BMI Method:Stated General Appearance: Anxious, Chronically ill Eyes: Bilateral Eye Normal Inspection, Bilateral Eye PERRL HEENT: PERRL/EOMI, Other (dry oral mucosa) Neck: Supple Respiratory: No Accessory Muscle Use, No Respiratory Distress, Wheezing (Coarse expiratory wheezes noted throughout all lung alva.) Cardiovascular: Regular Rate, Rhythm, Normal Peripheral Pulses Gastrointestinal: Soft, Distended, Tenderness (Patient moans louder with palpation of the abdomen) Extremity: Normal Capillary Refill, Normal Inspection, No Calf Tenderness Neurologic/Psychiatric: No Motor/Sensory Deficits Skin: normal color, warm/dry Focused Exam Lactate Level 06/13/21 13:25: Lactic Acid Level 1.94 Lactic Acid Level Progress/Results/Core Measures Suspected Sepsis SIRS Temperature: Pulse: Respiratory Rate: Laboratory Tests 06/13/21 13:25: White Blood Count 13.9H 06/15/21 07:15: White Blood Count 12.3H Blood Pressure / Mean: 06/13/21 13:25: Lactic Acid Level 1.94 Laboratory Tests 06/13/21 13:25: Creatinine 0.84, INR Comment 0.9, Platelet Count 393, Total Bilirubin 0.6 06/15/21 07:15: Creatinine 0.70, Platelet Count 268 Results/Orders Lab Results Laboratory Tests Test 06/13/21 19:04 06/15/21 07:15 Range/Units Glucometer 99 70-110 MG/DL White Blood Count 12.3 H 4.3-11.0 10^3/uL Red Blood Count 3.37 L 3.80-5.11 10^6/uL Hemoglobin 10.4 L 11.5-16.0 g/dL Hematocrit 34 L 35-52 % Mean Corpuscular Volume 100 H 80-99 fL Mean Corpuscular Hemoglobin 31 25-34 pg Mean Corpuscular Hemoglobin Concent 31 L 32-36 g/dL Red Cell Distribution Width 15.3 H 10.0-14.5 % Platelet Count 268 130-400 10^3/uL Mean Platelet Volume 9.1 9.0-12.2 fL Immature Granulocyte % (Auto) 2 % Neutrophils (%) (Auto) 73 42-75 % Lymphocytes (%) (Auto) 12 12-44 % Monocytes (%) (Auto) 11 0-12 % Eosinophils (%) (Auto) 2 0-10 % Basophils (%) (Auto) 0 0-10 % Neutrophils # (Auto) 9.0 H 1.8-7.8 10^3/uL Lymphocytes # (Auto) 1.5 1.0-4.0 10^3/uL Monocytes # (Auto) 1.4 H 0.0-1.0 10^3/uL Eosinophils # (Auto) 0.3 0.0-0.3 10^3/uL Basophils # (Auto) 0.0 0.0-0.1 10^3/uL Immature Granulocyte # (Auto) 0.2 H 0.0-0.1 10^3/uL Sodium Level 140 135-145 MMOL/L Potassium Level 2.9 L 3.6-5.0 MMOL/L Chloride Level 106 98-107 MMOL/L Carbon Dioxide Level 25 21-32 MMOL/L Anion Gap 9 5-14 MMOL/L Blood Urea Nitrogen 5 L 7-18 MG/DL Creatinine 0.70 0.60-1.30 MG/DL Estimat Glomerular Filtration Rate 82 BUN/Creatinine Ratio 7 Glucose Level 86 70-105 MG/DL Calcium Level 8.1 L 8.5-10.1 MG/DL Magnesium Level 1.5 L 1.6-2.4 MG/DL My Orders Medications Given in ED Vital Signs/I&O 06/15/21 06/15/21 06/15/21 06/15/21 07:00 08:00 08:00 10:32 Temp 36.1 Pulse 68 68 Resp 20 B/P (MAP) 97/53 (68) Pulse Ox 99 99 O2 Delivery Nasal Cannula Nasal Cannula Nasal Cannula O2 Flow Rate 4.00 4.00 4.00 06/15/21 06/15/21 06/15/21 06/15/21 12:00 12:54 14:26 16:00 Temp 36.0 36.4 Pulse 70 68 77 Resp 20 22 B/P (MAP) 111/55 (73) 109/54 (72) Pulse Ox 98 99 95 O2 Delivery Nasal Cannula Nasal Cannula Nasal Cannula O2 Flow Rate 4.00 4.00 2.00 Capillary Refill : Diagnostic Imaging Diagonstic Imaging: Xray, CT Plain Films/CT/US/NM/MRI: chest, head Comments NAME: CHÁVEZAYO Lifestander REC#: [id number] PT STATUS: REG ER : 1945 PHYSICIAN: VIKTORIYA MARI MD ADMIT DATE: 06/13/21/ER Draft Date of Exam:06/13/21 CHEST 1 VIEW, AP/PA ONLY INDICATION: Altered mental status, cough COMPARISON: 04/17/2021 FINDINGS: Single view chest demonstrates small effusion and atelectasis in the right base. Underlying pneumonia not excluded. Chronic healed rib fractures are seen bilaterally. Left lung is clear. The heart is prominent without pulmonary edema. There is no pneumothorax. IMPRESSION: Atelectasis, effusion and/or infiltrate right lung base. Dictated on workstation # [id number] Dict: 06/13/21 1444 Trans: 06/13/21 1447 [facility] [id number] Interpreted by: MINA CURTIS Electronically signed by: NAME: AYO CHÁVEZ Lifestander REC#: [id number] PT STATUS: REG ER : 1945 PHYSICIAN: VIKTORIYA MARI MD ADMIT DATE: 06/13/21/ER Draft Date of Exam:06/13/21 CT HEAD WO PROCEDURE: CT head without contrast. TECHNIQUE: Multiple contiguous axial images were obtained through the brain without the use of intravenous contrast. Auto Exposure Controls were utilized during the CT exam to meet ALARA standards for radiation dose reduction. INDICATION: Altered mental status and slurred speech. Comparison is made prior head CT from 04/06/2021. Ventricles and sulci are within normal limits. No sulcal effacement or midline shift is identified. No acute intra-axial or extra-axial hemorrhage is detected. Cisterns are patent. The visualized paranasal sinuses are clear. IMPRESSION: No acute intracranial process is detected. Dictated on workstation # [id number] Dict: 06/13/21 1500 Trans: 06/13/21 1503 [facility] [id number] Interpreted by: LADI MATHIS MD Electronically signed by: Departure Communication (Admissions) Time/Spoke to Admitting Phy: 15:[address] Britt Impression Primary Impression: UTI (lower urinary tract infection) Additional Impressions: Altered mental status Qualified Codes: R41.82 - Altered mental status, unspecified Sepsis Qualified Codes: A41.9 - Sepsis, unspecified organism; R65.20 - Severe sepsis without septic shock; G93.40 - Encephalopathy, unspecified Disposition: ADMITTED INPATIENT Condition: Stable Admissions Decision to Admit Reason: Admit from ER (General) Decision to Admit/Date: Jun 13, 2021 Time/Decision to Admit Time: 15:13 Departure-Patient Inst. Referrals: TIA DANIEL MD (PCP/Family) Primary Care Physician VIKTORIYA MARI MD Jun 13, 2021 13:36
[2021-06-13 13:48] LABS: BASOPHILS # (AUTO) 0.1 10^3/uL (0.0-0.1); BASOPHILS % (AUTO) 0 % (0-10); EOSINOPHILS # (AUTO) 0.4 10^3/uL (0.0-0.3); EOSINOPHILS % (AUTO) 3 % (0-10); HEMATOCRIT 41 % (35-52); HEMOGLOBIN 12.3 g/dL (11.5-16.0); LYMPHOCYTES # (AUTO) 2.2 10^3/uL (1.0-4.0); LYMPHOCYTES % (AUTO) 16 % (12-44); MEAN CORPUSCULAR HEMOGLOBIN 31 pg (25-34); MEAN CORPUSCULAR HGB CONC 30 g/dL (32-36); MEAN CORPUSCULAR VOLUME 102 fL (80-99); MEAN PLATELET VOLUME 9.4 fL (9.0-12.2); MONOCYTES # (AUTO) 1.3 10^3/uL (0.0-1.0); MONOCYTES % (AUTO) 10 % (0-12); NEUTROPHILS # (AUTO) 9.7 10^3/uL (1.8-7.8); NEUTROPHILS % (AUTO) 70 % (42-75); PLATELET COUNT 393 10^3/uL (130-400); WHITE BLOOD COUNT 13.9 10^3/uL (4.3-11.0)
[2021-06-13 13:50] LABS: BILIRUBIN,URINE NEGATIVE (NEGATIVE); CLARITY,URINE CLOUDY; COLOR,URINE YELLOW; GLUCOSE, URINE (UA) NEGATIVE (NEGATIVE); KETONES,URINE NEGATIVE (NEGATIVE); LEUKOCYTE ESTERASE ,URINE 2+ (NEGATIVE); NITRITE,URINE POSITIVE (NEGATIVE); PH,URINE 6.5 (5-9); PROTEIN,URINE TRACE (NEGATIVE)
[2021-06-13 13:57] LABS: ALBUMIN 3.4 GM/DL (3.2-4.5); POTASSIUM 4.4 MMOL/L (3.6-5.0)
[2021-06-13 13:58] LABS: CALCIUM 9.7 MG/DL (8.5-10.1)
[2021-06-13 13:59] LABS: TOTAL PROTEIN 6.5 GM/DL (6.4-8.2)
[2021-06-13 14:01] LABS: BILIRUBIN,TOTAL 0.6 MG/DL (0.1-1.0); INR 0.9 (0.8-1.4); PROTHROMBIN TIME PATIENT 12.4 SEC (12.2-14.7)
[2021-06-13 14:03] LABS: CREATININE SERUM 0.84 MG/DL (0.60-1.30)
[2021-06-13 14:06] LABS: BACTERIA,URINE MODERATE /HPF; WBC,URINE TNTC /HPF
[2021-06-13] MEDS ORDERED: PIPERACILLIN/TAZOBACTAM (BULK) 4.5 GM in NS (IVPB) 100 ML IV ONE (14:45)
--- NOTE | 2021-06-13 14:48 | Diagnostic Imaging Report ---
INDICATION: Altered mental status, cough COMPARISON: 04/17/2021 FINDINGS: Single view chest demonstrates small effusion and atelectasis in the right base. Underlying pneumonia not excluded. Chronic healed rib fractures are seen bilaterally. Left lung is clear. The heart is prominent without pulmonary edema. There is no pneumothorax. IMPRESSION: Atelectasis, effusion and/or infiltrate right lung base. Dictated by: Dictated on workstation # [id number]
--- NOTE | 2021-06-13 15:03 | Diagnostic Imaging Report ---
PROCEDURE: CT head without contrast. TECHNIQUE: Multiple contiguous axial images were obtained through the brain without the use of intravenous contrast. Auto Exposure Controls were utilized during the CT exam to meet ALARA standards for radiation dose reduction. INDICATION: Altered mental status and slurred speech. Comparison is made prior head CT from 04/06/2021. Ventricles and sulci are within normal limits. No sulcal effacement or midline shift is identified. No acute intra-axial or extra-axial hemorrhage is detected. Cisterns are patent. The visualized paranasal sinuses are clear. IMPRESSION: No acute intracranial process is detected. Dictated by: Dictated on workstation # [id number]
[2021-06-13 16:20] VITALS: BP 118/78
[2021-06-13 16:24] VITALS: BP 107/49
[2021-06-13] MEDS ORDERED: RT-ALBUTEROL/IPRATROPIUM 3 ML (DUONEB) VIAL INH PRN (16:30)
[2021-06-13] MEDS: NS IV 1000 ML 1,000 ML IV SCH (17:17)
[2021-06-13 19:35] VITALS: BP 93/55
[2021-06-13] MEDS: PIPERACILLIN/TAZO 4.5 GM/NS 100 ML IV SCH ×2 (20:23)
[2021-06-13 20:55] VITALS: BP 101/59
[2021-06-13] MEDS ORDERED: ACETAMINOPHEN 500 MG TAB (TYLENOL) PO PRN (21:30)
[2021-06-13] MEDS ORDERED: CALCIUM CARBONATE 500 MG (TUMS) TAB.CHEW PO PRN (21:30)
[2021-06-13] MEDS ORDERED: LOPERAMIDE 2 MG (IMODIUM) TABLET PO PRN (21:30)
[2021-06-13] MEDS ORDERED: ONDANSETRON 4 MG/2 ML (SDV) Z0FRAN IVP PRN (21:30)
[2021-06-13] MEDS ORDERED: MELATONIN 3 MG TABLET PO PRN (21:30)
[2021-06-13] MEDS ORDERED: DOCUSATE SODIUM 100 MG (COLACE) CAP PO PRN (21:30)
[2021-06-13] MEDS ORDERED: ONDANSETRON 4 MG (ZOFRAN) ORAL DISSOLVE TAB PO PRN (21:30)
[2021-06-13] MEDS ORDERED: diphenhydrAMINE 25 MG TAB (BENADRYL) PO PRN (21:30)
[2021-06-13] MEDS ORDERED: APIXABAN 5 MG (ELIQUIS) TABLET ONE (21:52)
[2021-06-13] MEDS: APIXABAN 5 MG (ELIQUIS) TABLET PO SCH (21:53)
[2021-06-13] MEDS: dilTIAZem120 MG (CARDIZEM CD) CAP PO SCH (21:53)
[2021-06-13 23:25] VITALS: BP 95/50
[2021-06-14 03:39] VITALS: BP 102/50
[2021-06-14] MEDS: PIPERACILLIN/TAZO 4.5 GM/NS 100 ML IV SCH ×6 (04:54→19:49)
[2021-06-14] MEDS: NS IV 1000 ML 1,000 ML IV SCH ×3 (04:54→23:55)
[2021-06-14] MEDS: ALPRAZolam 0.25 MG (XANAX) TAB PO PRN ×2 (05:45→19:49)
[2021-06-14 07:43] VITALS: BP 94/51
[2021-06-14] MEDS ORDERED: ACETAMINOPHEN 325 MG TABLET PO PRN (08:00)
[2021-06-14] MEDS: dilTIAZem120 MG (CARDIZEM CD) CAP PO SCH (08:38)
[2021-06-14] MEDS: polyethylene glycoL POWDER 17 GM (MIRALAX) PACK PO SCH ×2 (08:38→19:49)
[2021-06-14] MEDS: APIXABAN 5 MG (ELIQUIS) TABLET PO SCH ×2 (08:38→19:49)
[2021-06-14] MEDS: SENNA W/DOCUSATE (SENOKOT S) TABLET PO SCH ×2 (08:39→19:51)
[2021-06-14] MEDS ORDERED: HYDR-3820 PO ×2 (09:27)
[2021-06-14] MEDS ORDERED: FURO40TA4 PO ×2 (09:27)
[2021-06-14] MEDS ORDERED: ACET325C7 PO ×2 (09:27)
[2021-06-14] MEDS ORDERED: POTA10TA PO ×2 (09:27)
[2021-06-14] MEDS ORDERED: ALPR0.5T7 PO ×2 (09:27)
[2021-06-14 11:37] VITALS: BP 114/58
--- NOTE | 2021-06-14 12:05 | Consultation-Cardiology ---
HPI-Cardiology Cardiology Consultation Date of Consultation 06/14/21 Date of Admission Time Seen by Provider: 12:00 Indication: Atrial fibrillation HPI 76-year-old lady with extensive history, was admitted for change in mental status and lethargy, has been deteriorating. I was unable to obtain any history from the patient, history was obtained by reviewing her record. It was felt that she had atrial fibrillation, review of her EKGs showed significant artifact with underlying sinus rhythm, repeat EKG showed again artifacts with sinus rhythm, she has been requiring higher dose of oxygen. Was seen by the emergency room physician then she was admitted to the floor. Home Medications & Allergies Allergies: Coded Allergies: nitrofurantoin (Verified Allergy, Severe, RASH, 12/10/15) ITCHING AND RASH sulfamethoxazole (Verified Allergy, Severe, RASH, 12/10/15) ITCHING AND RASH trimethoprim (Verified Allergy, Severe, RASH, 12/10/15) ITCHING AND RASH azithromycin (Verified Allergy, Unknown, 08/14/14) cefixime (Verified Allergy, Unknown, 08/14/14) Home Medication List Reviewed: Yes OLF-Iinsto-Mlhwti Hx Patient Social History Marital Status: Type Used: Cigarettes 2nd Hand Smoke Exposure: Yes Recent Hopitalizations: No Have you traveled recently?: No Immunizations Up To Date Date of Pneumonia Vaccine: May 13, 2013 Date of Influenza Vaccine: Aug 16, 2019 Past Medical History Unable to provide past medical history Family Medical History Significant Family History: Cancer Family History: Bladder problems G8 SISTER FH: lung cancer 19 FATHER Thyroid disease 19 MOTHER Review of Systems-General Review of Systems Constitutional: see HPI, malaise, weakness, other (Unable to provide review of system) Respiratory: short of breath Cardiovascular: no symptoms reported Psychiatric/Neurological: Denies Headache Reviewed Test Results Reviewed Test Results Lab Laboratory Tests Test 06/13/21 13:25 06/13/21 13:36 06/13/21 13:38 06/13/21 19:04 Range/Units White Blood Count 13.9 H 4.3-11.0 10^3/uL Red Blood Count 3.99 3.80-5.11 10^6/uL Hemoglobin 12.3 11.5-16.0 g/dL Hematocrit 41 35-52 % Mean Corpuscular Volume 102 H 80-99 fL Mean Corpuscular Hemoglobin 31 25-34 pg Mean Corpuscular Hemoglobin Concent 30 L 32-36 g/dL Red Cell Distribution Width 15.3 H 10.0-14.5 % Platelet Count 393 130-400 10^3/uL Mean Platelet Volume 9.4 9.0-12.2 fL Immature Granulocyte % (Auto) 2 % Neutrophils (%) (Auto) 70 42-75 % Lymphocytes (%) (Auto) 16 12-44 % Monocytes (%) (Auto) 10 0-12 % Eosinophils (%) (Auto) 3 0-10 % Basophils (%) (Auto) 0 0-10 % Neutrophils # (Auto) 9.7 H 1.8-7.8 10^3/uL Lymphocytes # (Auto) 2.2 1.0-4.0 10^3/uL Monocytes # (Auto) 1.3 H 0.0-1.0 10^3/uL Eosinophils # (Auto) 0.4 H 0.0-0.3 10^3/uL Basophils # (Auto) 0.1 0.0-0.1 10^3/uL Immature Granulocyte # (Auto) 0.2 H 0.0-0.1 10^3/uL Prothrombin Time 12.4 12.2-14.7 SEC INR Comment 0.9 0.8-1.4 Activated Partial Thromboplast Time 32 24-35 SEC Sodium Level 137 135-145 MMOL/L Potassium Level 4.4 3.6-5.0 MMOL/L Chloride Level 97 L 98-107 MMOL/L Carbon Dioxide Level 32 21-32 MMOL/L Anion Gap 8 5-14 MMOL/L Blood Urea Nitrogen 10 7-18 MG/DL Creatinine 0.84 0.60-1.30 MG/DL Estimat Glomerular Filtration Rate 66 BUN/Creatinine Ratio 12 Glucose Level 92 70-105 MG/DL Lactic Acid Level 1.94 0.50-2.00 MMOL/L Calcium Level 9.7 8.5-10.1 MG/DL Corrected Calcium 10.2 H 8.5-10.1 MG/DL Total Bilirubin 0.6 0.1-1.0 MG/DL Aspartate Amino Transf (AST/SGOT) 12 5-34 U/L Alanine Aminotransferase (ALT/SGPT) 11 0-55 U/L Alkaline Phosphatase 104 40-136 U/L C-Reactive Protein High Sensitivity 8.37 H 0.00-0.50 MG/DL Total Protein 6.5 6.4-8.2 GM/DL Albumin 3.4 3.2-4.5 GM/DL Procalcitonin 0.07 <0.10 NG/ML Urine Color YELLOW Urine Clarity CLOUDY Urine pH 6.5 5-9 Urine Specific [place] 1.010 L 1.016-1.022 Urine Protein TRACE H NEGATIVE Urine Glucose (UA) NEGATIVE NEGATIVE Urine Ketones NEGATIVE NEGATIVE Urine Nitrite POSITIVE H NEGATIVE Urine Bilirubin NEGATIVE NEGATIVE Urine Urobilinogen 0.2 < = 1.0 MG/DL Urine Leukocyte Esterase 2+ H NEGATIVE Urine RBC (Auto) 1+ H NEGATIVE Urine RBC 2-5 H /HPF Urine WBC TNTC H /HPF Urine Crystals NONE /LPF Urine Bacteria MODERATE H /HPF Urine Casts NONE /LPF Urine Mucus NEGATIVE /LPF Urine Culture Indicated CULTURE PENDING Influenza Type A (RT-PCR) Not Detected Not Detecte Influenza Type B (RT-PCR) Not Detected Not Detecte SARS-CoV-2 RNA (RT-PCR) Not Detected Not Detecte Glucometer 99 70-110 MG/DL Physical Exam Physical Exam Vital Signs Vital Signs - First Documented 06/13/21 16:24 FiO2 21 Capillary Refill : Less Than 3 Seconds Height, Weight, BMI Height: 5'3.00" Weight: 110lbs. 0.0oz. 49.936795dh; 26.56 BMI Method:Stated General Appearance: Anxious, Chronically ill Eyes: Bilateral Eye Normal Inspection, Bilateral Eye PERRL HEENT: PERRL/EOMI, Other (dry oral mucosa) Neck: Supple Respiratory: No Accessory Muscle Use, No Respiratory Distress, Wheezing (Coarse expiratory wheezes noted throughout all lung alva.) Cardiovascular: Regular Rate, Rhythm, Normal Peripheral Pulses Gastrointestinal: Soft, Distended, Tenderness (Patient moans louder with palpation of the abdomen) Extremity: Normal Capillary Refill, Normal Inspection, No Calf Tenderness Neurologic/Psychiatric: No Motor/Sensory Deficits A/P-Cardiology Admission Diagnosis Sepsis Urinary tract infection Change in mental status Hypoxemia Assessment/Plan Change in mental status, progressive cognitive deterioration with generalized weakness. Probably at this time due to underlying sepsis. Managed by primary care team Urinary tract infection, started on Zosyn, managed by primary care physician Progressive shortness of breath, requiring higher dose of oxygen, probable underlying pneumonia. Managed by primary care team, I recommend evaluating ABG Paroxysmal atrial fibrillation, had a transient episode of atrial fibrillation in April 2021 and converted to sinus rhythm on Cardizem drip. She has been maintained on oral Cardizem and Eliquis. Tolerating medication well. This admission all her EKGs are showing underlying sinus rhythm with artifacts Echocardiogram done in April 2021 showing ejection fraction 50 to 55%, PA pressure 20 to 25 mmHg. Continue to monitor History of anemia requiring blood transfusion, continue to monitor H&H History of tobaccoism, has been an active smoker until her last admission in April 2021 History of multiple rib fractures, generalized weakness and debility. AKOSUA NEWELL MD Jun 14, 2021 12:05
--- NOTE | 2021-06-14 12:31 | History & Physical-Hospitalist ---
History of Present Illness HPI/Chief Complaint Anna Singh is a 76 year old female with PMH COPD, chronic hypoxic respiratory failure on home oxygen, tobacco abuse, atrial fibrillation, osteoporosis, CKD, hypothyroidism, who presented with altered mental status. She is a poor historian due to her altered mental status. Her is present and provides the history. She had been in her normal state of health until a few days ago. He says she was slurring her words. She became more confused and she was brought into the hospital. He says she has had urinary tract infections before, but she used to be able to tell when she was getting them, until recently. Source: patient, family Exam Limitations: clinical condition Date Seen 06/14/21 Time Seen by a Provider: 08:55 Attending Physician Margie Farr MD PCP Christiano Pereira MD Referring Physician Date of Admission Jun 13, 2021 at 15:22 Home Medications & Allergies Home Medications Reviewed patient Home Medication Reconciliation performed by pharmacy medication reconciliations truck engine technician and/or nursing. Patients Allergies have been reviewed. Allergies Allergies Coded Allergies nitrofurantoin (Verified Allergy, Severe, RASH, 12/10/15) ITCHING AND RASH sulfamethoxazole (Verified Allergy, Severe, RASH, 12/10/15) ITCHING AND RASH trimethoprim (Verified Allergy, Severe, RASH, 12/10/15) ITCHING AND RASH azithromycin (Verified Allergy, Unknown, 08/14/14) cefixime (Verified Allergy, Unknown, 08/14/14) Past Hetahxz-Alafjo-Fijyhb Hx Patient Social History Marrital Status: Tobacco Use?: No Immunizations Up To Date Date of Influenza Vaccine: Aug 16, 2019 First/Initial COVID19 Vaccinat: 2020 Second COVID19 Vaccination Aron: 2020 Tetanus Booster (TDap): Unknown PED Vaccines UTD: No Date of Pneumonia Vaccine: May 13, 2013 Seasonal Allergies Seasonal Allergies: Yes Current Status status: No status: No Advance Directives: Yes Advance Directive Location: Copy placed in chart Communicates: Verbally Primary Language: [place] Preferred Spoken Language: [place] Is interpretation needed?: No Implanted or Applied Medical D: None Past Medical History Surgeries: Breast, Orthopedic, Thyroidectomy Pneumonia, COPD Hypertension Headaches /Migraines Bladder Infection Osteoporosis, Chronic Back Pain Hypothyroidsim Anxiety Blood Disorders: No Family Medical History Bladder problems G8 SISTER FH: lung cancer 19 FATHER Thyroid disease 19 MOTHER Cancer Review of Systems Constitutional: see HPI Physical Exam Physical Exam Vital Signs Vital Signs - First Documented 06/13/21 16:24 FiO2 21 Capillary Refill : Less Than 3 Seconds Height, Weight, BMI Height: 5'3.00" Weight: 110lbs. 0.0oz. 49.016764sq; 26.56 BMI Method:Stated General Appearance: No Apparent Distress, Chronically ill Neck: Normal Inspection, Supple Respiratory: Lungs Clear, Normal Breath Sounds, No Respiratory Distress Cardiovascular: Regular Rate, Rhythm, No Murmur Gastrointestinal: Normal Bowel Sounds, Non Tender, Soft Extremity: Normal Inspection, Non Tender, Pedal Edema Neurologic/Psychiatric: Alert, Disoriented (oriented to self and place, disoriented to date), Motor Weakness Skin: Normal Color, Warm/Dry Results Results/Procedures Labs Laboratory Tests 06/13/21 13:25 Patient resulted labs reviewed. Imaging: Reviewed Imaging Report Assessment/Plan Admission Diagnosis Sepsis due to UTI Admission Status: Inpatient Order (span 2 midnights) Reason for Inpatient Admission: IV antibiotics Assessment and Plan Sepsis due to UTI UA consistent with UTI Urine culture with preliminary Klebsiella Await final ID and susceptibilities Started on Zosyn IV fluids Chronic respiratory failure with hypoxia COPD Continue home meds and oxygen AFib Continue home meds Cardiology consulted, appreciate assistance Debility PT/OT DVT prophylaxis: already receiving therapeutic anticoagulation Diagnosis/Problems Diagnosis/Problems (1) Sepsis Status: Acute Qualifiers: Sepsis type: sepsis due to unspecified organism Sepsis acute organ dysfunction status: with acute organ dysfunction Severe sepsis acute organ dy sfunction type: encephalopathy Severe sepsis shock status: without septic shock Qualified Codes: A41.9 - Sepsis, unspecified organism; R65.20 - Severe sepsis without septic shock; G93.40 - Encephalopathy, unspecified (2) UTI (lower urinary tract infection) Status: Acute (3) Debility Status: Acute (4) Chronic respiratory failure with hypoxia Status: Chronic (5) COPD (chronic obstructive pulmonary disease) Status: Chronic MARGIE FARR MD Jun 14, 2021 12:31
[2021-06-14] MEDS ORDERED: ALPRAZolam 0.5 MG (XANAX) TAB PO PRN (12:45)
--- NOTE | 2021-06-14 14:17 | Physical Therapy Evaluation ---
PT Evaluation-General Medical Diagnosis Admission Date Jun 13, 2021 at 15:22 Medical Diagnosis: UTI/sepsis/AMS Onset Date: Jun 13, 2021 Therapy Diagnosis Therapy Diagnosis: generalized weakness/debility Height/Weight Height (Feet): 5 Height (Inches): 3.00 Weight (Pounds): 110 Weight (Ounces): 0.0 Precautions Precautions/Isolations: Fall Prevention, Standard Precautions Referral Physician: Balwinder Reason for Referral: Evaluation/Treatment Medical History Pertinent Medical History: Atrial Fib, COPD (O2 dependent), HTN, Smoking Current History EMS from home secondary to AMS Reviewed History: Yes Social History Home: Single Level Current Living Status: Spouse Prior Prior Level of Function SCALE: Activities may be completed with or without assistive devices. 9-Enqcpnczux-qwxnoji completes the activity by him/herself with no assistance from a helper. 5-Set-up or Clean-up Assistance-helper sets up or cleans up; patient completes activity. [place] assists only prior to or following the activity. 4-Supervision or Touching Assistance-helper provides verbal cues and/or touching/steadying and/or contact guard assistance as patient completes activity. Assistance may be provided throughout the activity or intermittently. 3-Partial/Moderate Assistance-helper does LESS THAN HALF the effort. [place] lifts, holds or supports trunk or limbs, but provides less than half the effort. 2-Substantial/Maximal Assistance-helper does MORE THAN HALF the effort. [place] lifts or holds trunk or limbs and provides more than half the effort. 8-Cxbhqclwp-mnmwjf does ALL the effort. Patient does none of the effort to complete the activity. Or, the assistance of 2 or more helpers is required for the patient to complete the activity. If activity was not attempted, code reason: 7-Patient Refused. 9-Not Applicable-not attempted and the patient did not perform the activity before the current illness, exacerbation or injury. 10-Not Attempted due to Environmental Limitations-(lack of equipment, weather restraints, etc.). 88-Not Attempted due to Medical Conditions or Safety Concerns. Bed Mobility: 6 Transfers (B,C,W/C): 6 Gait: 6 Indoor Mobility (Ambulation): Independent Prior Devices Use: Walker PT Evaluation-Current Subjective Patient is very confused. Did request to use commode. Objective Patient Orientation: Confused Attachments: Oxygen, Sotomayor Catheter, IV ROM/Strength ROM Lower Extremities bilateral LE WFL Strength Lower Extremities 3-/5 grossly bilateral LE all planes (patient unable to follow direction for formal testing) Integumentary/Posture Bowel Incontinence: Yes Bladder Incontinence: Sotomayor Cath Posture WFL Neuromuscular (Tone, Coordination, Reflexes) severely diminished with all Sensory Vision: Functional Hearing: Functional Transfers Roll Left to Right (QC): 2 Sit to Lying (QC): 2 Lying to Sitting/Side of Bed(Q: 2 Sit to Stand (QC): 2 Toilet Transfer (QC): 2 Patient incontinent BM during transfer Gait Does the Patient Walk?: No and Walking Goal IS indicated Mode of Locomotion: Walk Anticipated Mode of Locomotion: Walk Walk 10 feet (QC): 88 Walk 50 ft with 2 Turns(QC): 88 Walk 150 ft (QC): 88 Balance Sitting Static: Fair Sitting Dynamic: Fair Standing Static: Poor Standing Dynamic: Poor Assessment/Needs 76 y.o. female, will benefit from skilled PT to address functional strength and mobility to improve current LOF to safely return to home or care facility at maximum LOF. Rehab Potential: Guarded PT Fdc Goals Fdc Goals PT [employer] Clerk Goals Time Frame: Jun 30, 2021 Roll Left & Right (QC): 5 Sit to Lying (QC): 5 Lying-Sitting on Side/Bed(QC): 5 Sit to Stand (QC): 5 Chair/Jie-aj-Nyimu Xfer(QC): 5 Toilet Transfer (QC): 5 Walk 10 feet (QC): 4 Walk 50ft with 2 Turns (QC): 4 Walk 150 ft (QC): 4 PT Plan Problem List Problem List: Activity Tolerance, Functional Strength, Safety, Balance, Gait, Transfer, Bed Mobility Treatment/Plan Treatment Plan: Continue Plan of Care Treatment Plan: Bed Mobility, Education, Functional Activity [place], Functional Strength, Gait, Safety, Therapeutic Exercise, Transfers Treatment Duration: Jun 30, 2021 Frequency: 6 times per week Estimated Hrs Per Day: .25 hour per day Time/GCodes Time In: 1346 Time Out: 1400 Total Billed Treatment Time: 14 Total Billed Treatment 1 visit EVMod 14 min JOHNSON FELIZ PT Jun 14, 2021 14:17
--- NOTE | 2021-06-14 14:53 | Occupational Therapy Eval ---
OT Evaluation-General/PLF Medical Diagnosis Admission Date Jun 13, 2021 at 15:22 Medical Diagnosis: UTI/sepsis/AMS Onset Date: Jun 13, 2021 Therapy Diagnosis Therapy Diagnosis: decreased ADL status, weakness Height/Weight Height (Feet): 5 Height (Inches): 3.00 Weight (Pounds): 110 Weight (Ounces): 0.0 Precautions Precautions/Isolations: Fall Prevention, Standard Precautions Referral Physician: Balwinder Referral Reason: Evaluation/Treatment Medical History Pertinent Medical History: Atrial Fib, COPD (O2 dependent), HTN, Smoking Additional Medical History COPD, hypoxic respiratory failure, tobacco abuse, afib, osteoporosis, CKD, hypothyroidism. Current History present with AMS Social History Home: Single Level Current Living Status: Spouse ADL-Prior Level of Function SCALE: Activities may be completed with or without assistive devices. 7-Njzjdahqno-nbyfkjo completes the activity by him/herself with no assistance from a helper. 5-Set-up or Clean-up Assistance-helper sets up or cleans up; patient completes activity. [place] assists only prior to or following the activity. 4-Supervision or Touching Assistance-helper provides verbal cues and/or touching/steadying and/or contact guard assistance as patient completes activity. Assistance may be provided throughout the activity or intermittently. 3-Partial/Moderate Assistance-helper does LESS THAN HALF the effort. [place] lifts, holds or supports trunk or limbs, but provides less than half the effort. 2-Substantial/Maximal Assistance-helper does MORE THAN HALF the effort. [place] lifts or holds trunk or limbs and provides more than half the effort. 5-Iyzfurrdb-noxrqk does ALL the effort. Patient does none of the effort to complete the activity. Or, the assistance of 2 or more helpers is required for the patient to complete the activity. If activity was not attempted, code reason: 7-Patient Refused. 9-Not Applicable-not attempted and the patient did not perform the activity before the current illness, exacerbation or injury. 10-Not Attempted due to Environmental Limitations-(lack of equipment, weather restraints, etc.). 88-Not Attempted due to Medical Conditions or Safety Concerns. ADL PLOF Comments Unknown at this time, pt unable to provide information Self Care: Unknown Functional Cognition: Unknown OT Current Status Subjective Pt on BSC, agreeable to OT tx. Mental Status/Objective Patient Orientation: Confused Attachments: Sotomayor Catheter, IV, Oxygen Current Glasses/Contacts: Yes Upper Extremity ROM unable to assess due to pt unable to follow instructions. Upper Extremity Strength unable to assess due to pt unable to follow instructions. ADL-Treatment Eating (QC): 2 (Pt refused to drink, assist to bring spoon to mouth. ate 2 bites of jello.) Toileting Hygiene (QC): 1 (Total assist ) Other Treatments Pt on BSC, completed toileting. Max A sit to stand. Total assist with hygiene post BM, then max A transfer to bed, max A supine to sit. Pt unable to follow instructions for ROM/MMT testing. OT encouraged pt to eat, she would not reach for food on tray. OT attempted to place cup in pt's hand, but pt moved hand back under the covers. Pt able to open eyes with instruction, but then closed them. OT placed straw in pts mouth, pt refused to drink sprite and broth. OT scooped up jello, pt ate 2 bites, then began shaking her head "no" refusing more. Post tx, pt in bed, call light in reach and all needs met Education OT Patient Education: Correct positioning, Modified ADL techniques, Progress toward Goal/Update tx plan, Purpose of tx/functional activities Teaching Recipient: Patient Teaching Methods: Discussion Response to Teaching: Unable to Return Demonstration, Unable to Comprehend OT Penitentiary Goals Swimming Teacher Goals Time Frame: Jun 29, 2021 Eating (QC): 6 Oral Hygiene (QC): 5 Toileting Hygiene (QC): 4 Shower/Bathe Self (QC): 4 Upper Body Dressing (QC): 5 Lower Body Dressing (QC): 4 On/Off Footwear (QC): 4 Additional Goals: 1-Demonstrate ADL Tasks, 2-Verbalize Understanding, 3-ImproveStrength/[place] 1=Demonstrate adherence to instructed precautions during ADL tasks. 2=Patient will verbalize/demonstrate understanding of assistive devices/modifications for ADL. 3=Patient will improve strength/tolerance for activity to enable patient to perform ADL's. OT Education/Plan Problem List/Assessment Assessment: Decreased Activ Tolerance, Decreased Safety Aware, Decreased UE Strength, Impaired Bed Mobility, Impaired Cognition, Impaired Coordination, Impaired Funct Balance, Impaired I ADL's, Impaired Self-Care Skills Discharge Recommendations Plan/Recommendations: Continue POC Treatment Plan/Plan of Care Patient would benefit from OT for education, treatment and training to promote independence in ADL's, mobility, safety and/or upper extremity function for ADL's. Plan of Care: ADL Retraining, Functional Mobility, UE Funct Exercise/Act Treatment Duration: Jun 22, 2021 Frequency: 5 times per week Estimated Hrs Per Day: .25 hour per day Rehab Potential: Guarded Time/GCodes Start Time: 13:55 Stop Time: 14:05 Total Time Billed (hr/min): 10 Billed Treatment Time 1, SRINIVASAN BENITES OT Jun 14, 2021 14:53
[2021-06-14 16:00] VITALS: BP 107/53
[2021-06-14] MEDS: TAMSULOSIN 0.4 MG (FLOMAX) CAP PO SCH (19:49)
[2021-06-14 19:53] VITALS: BP 110/54
[2021-06-14] MEDS: RT-ALBUTEROL HFA 8.5 GM INHALER IH SCH (20:19)
[2021-06-14 23:21] VITALS: BP 95/50
[2021-06-15 03:37] VITALS: BP 102/57
[2021-06-15] MEDS: RT-ALBUTEROL HFA 8.5 GM INHALER IH SCH ×4 (04:04→22:25)
[2021-06-15] MEDS: PIPERACILLIN/TAZO 4.5 GM/NS 100 ML IV SCH ×2 (04:08)
[2021-06-15 07:24] LABS: BASOPHILS % (AUTO) 0 % (0-10); EOSINOPHILS # (AUTO) 0.3 10^3/uL (0.0-0.3); EOSINOPHILS % (AUTO) 2 % (0-10); HEMATOCRIT 34 % (35-52); HEMOGLOBIN 10.4 g/dL (11.5-16.0); LYMPHOCYTES # (AUTO) 1.5 10^3/uL (1.0-4.0); LYMPHOCYTES % (AUTO) 12 % (12-44); MEAN CORPUSCULAR HEMOGLOBIN 31 pg (25-34); MEAN CORPUSCULAR HGB CONC 31 g/dL (32-36); MEAN CORPUSCULAR VOLUME 100 fL (80-99); MEAN PLATELET VOLUME 9.1 fL (9.0-12.2); MONOCYTES # (AUTO) 1.4 10^3/uL (0.0-1.0); MONOCYTES % (AUTO) 11 % (0-12); NEUTROPHILS % (AUTO) 73 % (42-75); PLATELET COUNT 268 10^3/uL (130-400); WHITE BLOOD COUNT 12.3 10^3/uL (4.3-11.0)
[2021-06-15 07:40] LABS: POTASSIUM 2.9 MMOL/L (3.6-5.0)
[2021-06-15 07:41] LABS: CALCIUM 8.1 MG/DL (8.5-10.1)
[2021-06-15 07:45] LABS: CREATININE SERUM 0.7 MG/DL (0.60-1.30)
[2021-06-15 08:00] VITALS: BP 97/53
[2021-06-15] MEDS: SENNA W/DOCUSATE (SENOKOT S) TABLET PO SCH ×2 (08:07→20:12)
[2021-06-15] MEDS: polyethylene glycoL POWDER 17 GM (MIRALAX) PACK PO SCH ×2 (08:07→20:12)
[2021-06-15] MEDS: APIXABAN 5 MG (ELIQUIS) TABLET PO SCH ×2 (09:13→20:11)
[2021-06-15] MEDS: predniSONE 5 MG TAB PO SCH (09:13)
[2021-06-15] MEDS: ASPIRIN 81 MG CHEW (CHILDREN'S ASA) PO SCH (09:13)
[2021-06-15] MEDS: THYROID (ARMOUR) 60 MG TABLET PO SCH (09:13)
[2021-06-15] MEDS: LORATADINE (CLARITIN) 10 MG TAB PO SCH (09:13)
[2021-06-15] MEDS: dilTIAZem120 MG (CARDIZEM CD) CAP PO SCH (09:13)
[2021-06-15] MEDS: FLUTICASONE NASAL SPRAY (FLONASE) 16 GM BTL NS SCH (09:14)
[2021-06-15] MEDS: POTASSIUM CL 10MEQ/50ML IVPB 50 ML IV SCH ×5 (09:49→15:17)
[2021-06-15] MEDS: MAGNESIUM 1 GM/100 ML IVPB 100 ML IV SCH ×3 (09:49→15:15)
[2021-06-15] MEDS: KCL 20 MEQ TAB (K-DUR) PO SCH (09:50)
--- NOTE | 2021-06-15 09:51 | Physical Therapy Daily Note ---
PT Daily Note-Current Subjective Patient slightly more alert on this date. Mental Status Patient Orientation: Confused Attachments: Oxygen, Sotomayor Catheter, IV Transfers SCALE: Activities may be completed with or without assistive devices. 7-Ynmijmsvpk-nycndor completes the activity by him/herself with no assistance from a helper. 5-Set-up or Clean-up Assistance-helper sets up or cleans up; patient completes activity. [place] assists only prior to or following the activity. 4-Supervision or Touching Assistance-helper provides verbal cues and/or touching/steadying and/or contact guard assistance as patient completes activity. Assistance may be provided throughout the activity or intermittently. 3-Partial/Moderate Assistance-helper does LESS THAN HALF the effort. [place] lifts, holds or supports trunk or limbs, but provides less than half the effort. 2-Substantial/Maximal Assistance-helper does MORE THAN HALF the effort. [place] lifts or holds trunk or limbs and provides more than half the effort. 5-Tsgnihgeo-hdnplq does ALL the effort. Patient does none of the effort to complete the activity. Or, the assistance of 2 or more helpers is required for the patient to complete the activity. If activity was not attempted, code reason: 7-Patient Refused. 9-Not Applicable-not attempted and the patient did not perform the activity before the current illness, exacerbation or injury. 10-Not Attempted due to Environmental Limitations-(lack of equipment, weather restraints, etc.). 88-Not Attempted due to Medical Conditions or Safety Concerns. Sit to Lying (QC): 2 Lying to Sitting/Side of Bed(Q: 2 Sit to Stand (QC): 2 Toilet Transfer (QC): 2 sit to stand x 3 sets with BOOT REPAIRER present due to incontinent BM requiring dependent assist to cleanse and change patient. Gait Training Does the Patient Walk?: No and Walking Goal IS indicated Assessment Patient tolerates minimal activity due to fatigue. Increase activity as tolerated by patient. PT Dry Cleaning Teacher Goals Usp Goals PT Dry Cleaning Teacher Goals Time Frame: Jun 30, 2021 Roll Left & Right (QC): 5 Sit to Lying (QC): 5 Lying-Sitting on Side/Bed(QC): 5 Sit to Stand (QC): 5 Chair/Hry-hb-Gbcau Xfer(QC): 5 Toilet Transfer (QC): 5 Walk 10 feet (QC): 4 Walk 50ft with 2 Turns (QC): 4 Walk 150 ft (QC): 4 PT Plan Treatment/Plan Treatment Plan: Continue Plan of Care Treatment Plan: Bed Mobility, Education, Functional Activity [place], Functional Strength, Gait, Safety, Therapeutic Exercise, Transfers Treatment Duration: Jun 30, 2021 Frequency: 6 times per week Estimated Hrs Per Day: .25 hour per day Time/GCodes Time In: 854 Time Out: 905 Total Billed Treatment Time: 11 Total Billed Treatment 1 visit FA 11 min JOHNSON FELIZ PT Jun 15, 2021 09:51
[2021-06-15] MEDS: MEROPENEM 500 MG in WATER (STERILE) FOR INJECTION 10 ML IV SCH ×3 (11:15→22:10)
[2021-06-15 12:00] VITALS: BP 111/55
--- NOTE | 2021-06-15 12:56 | Progress Note - Hospitalist ---
Subjective HPI/CC On Admission Date Seen by Provider: Jun 15, 2021 Time Seen by Provider: 09:45 Anna Singh is a 76 year old female with PMH COPD, chronic hypoxic respiratory failure on home oxygen, tobacco abuse, atrial fibrillation, osteoporosis, CKD, hypothyroidism, who presented with altered mental status. She is a poor historian due to her altered mental status. Her is present and provides the history. She had been in her normal state of health until a few days ago. He says she was slurring her words. She became more confused and she was brought into the hospital. He says she has had urinary tract infections b efore, but she used to be able to tell when she was getting them, until recently. Subjective/Events-last exam She is still sleepy and lethargic. She does wake up and follow commands. She is disoriented. Her is at the bedside and all questions were answered. Focused Exam Lactate Level 06/13/21 13:25: Lactic Acid Level 1.94 Objective Exam Vital Signs Vital Signs Date Time Temp Pulse Resp B/P (MAP) Pulse Ox O2 Delivery O2 Flow Rate FiO2 06/15/21 10:32 99 Nasal Cannula 4.00 06/15/21 08:00 36.1 68 20 97/53 (68) 06/13/21 16:24 21 Capillary Refill : Less Than 3 Seconds General Appearance: No Apparent Distress, WD/WN HEENT: PERRL/EOMI, Pharynx Normal Neck: Normal Inspection, Supple Respiratory: Lungs Clear, Normal Breath Sounds, No Respiratory Distress Cardiovascular: Regular Rate, Rhythm, No Edema, No Murmur Gastrointestinal: Normal Bowel Sounds, Non Tender, Soft Extremity: Normal Inspection, Non Tender, No Pedal Edema Neurologic/Psychiatric: Disoriented, Motor Weakness (diffuse), Other (sleeping, easily arousable, lethargic) Skin: Normal Color, Warm/Dry Results/Procedures Lab Laboratory Tests 06/15/21 07:15 Patient resulted labs reviewed. Imaging: Reviewed Imaging Report Assessment/Plan Assessment and Plan Assess & Plan/Chief Complaint Sepsis due to UTI UA consistent with UTI Urine culture with Klebsiella aerogenes Appears to be resistant to Zosyn Transition to Meropenem Chronic respiratory failure with hypoxia COPD Continue home meds and oxygen AFib Continue home meds Cardiology consulted, appreciate assistance Debility PT/OT DVT prophylaxis: already receiving therapeutic anticoagulation Diagnosis/Problems Diagnosis/Problems (1) Sepsis Status: Acute Qualifiers: Sepsis type: sepsis due to unspecified organism Sepsis acute organ dysfunction status: with acute organ dysfunction Severe sepsis acute organ dysfunction type: encephalopathy Severe sepsis shock status: without septic shock Qualified Codes: A41.9 - Sepsis, unspecified organism; R65.20 - Severe sepsis without septic shock; G93.40 - Encephalopathy, unspecified (2) UTI (lower urinary tract infection) Status: Acute (3) Debility Status: Acute (4) Chronic respiratory failure with hypoxia Status: Chronic (5) COPD (chronic obstructive pulmonary disease) Status: Chronic MARGIE FARR MD Jun 15, 2021 12:56
--- NOTE | 2021-06-15 12:59 | Occupational Ther Daily Note ---
OT Current Status-Daily Note Subjective Pt's eyes closed and would not open to name or touch. Pt was moving arms and body around in bed though not alert/awake, moaning in sleep. Mental Status/Objective Patient Orientation: Unable to Assess Attachments: IV, Telemetry ADL-Treatment Pt dependent for toileting. Incontinent of bowel. Assist x2 to roll and cleanse in bed. Opened eyes 1x during session then closed them and did not open again. Pt did verbalize during session, though did not make sense. After therapy, pt lying in bed with call light/phone in reach. Nrsg aware of position. All needs met. Therapy Code Descriptions/Definitions Functional [place] Measure: 0=Not Assessed/NA 4=Minimal Assistance 1=Total Assistance 5=Supervision or Setup 2=Maximal Assistance 6=Modified [place] 3=Moderate Assistance 7=Complete IndependenceSCALE: Activities may be completed with or without assistive devices. 4-Zubvisyfve-mokvbif completes the activity by him/herself with no assistance from a helper. 5-Set-up or Clean-up Assistance-helper sets up or cleans up; patient completes activity. [place] assists only prior to or following the activity. 4-Supervision or Touching Assistance-helper provides verbal cues and/or touching/steadying and/or contact guard assistance as patient completes activity. Assistance may be provided throughout the activity or intermittently. 3-Partial/Moderate Assistance-helper does LESS THAN HALF the effort. [place] lifts, holds or supports trunk or limbs, but provides less than half the effort. 2-Substantial/Maximal Assistance-helper does MORE THAN HALF the effort. [place] lifts or holds trunk or limbs and provides more than half the effort. 6-Qvncgovcx-gzlnxl does ALL the effort. Patient does none of the effort to complete the activity. Or, the assistance of 2 or more helpers is required for the patient to complete the activity. If activity was not attempted, code reason: 7-Patient Refused. 9-Not Applicable-not attempted and the patient did not perform the activity before the current illness, exacerbation or injury. 10-Not Attempted due to Environmental Limitations-(lack of equipment, weather restraints, etc.). 88-Not Attempted due to Medical Conditions or Safety Concerns. Toileting Hygiene (QC): 1 OT Prison Goals Prison Goals Time Frame: Jun 29, 2021 Eating (QC): 6 Oral Hygiene (QC): 5 Toileting Hygiene (QC): 4 Shower/Bathe Self (QC): 4 Upper Body Dressing (QC): 5 Lower Body Dressing (QC): 4 On/Off Footwear (QC): 4 Additional Goals: 1-Demonstrate ADL Tasks, 2-Verbalize Understanding, 3- ImproveStrength/[place] 1=Demonstrate adherence to instructed precautions during ADL tasks. 2=Patient will verbalize/demonstrate understanding of assistive devices/modif ications for ADL. 3=Patient will improve strength/tolerance for activity to enable patient to perform ADL's. OT Education/Plan Problem List/Assessment Assessment: Decreased Activ Tolerance, Decreased Safety Aware, Impaired Bed Mobility, Impaired Cognition, Impaired Self-Care Skills Discharge Recommendations Plan/Recommendations: Continue POC Treatment Plan/Plan of Care Patient would benefit from OT for education, treatment and training to promote independence in ADL's, mobility, safety and/or upper extremity function for ADL's. Plan of Care: ADL Retraining, Functional Mobility, UE Funct Exercise/Act Treatment Duration: Jun 22, 2021 Frequency: 5 times per week Estimated Hrs Per Day: .25 hour per day Rehab Potential: Guarded Time/GCodes Start Time: 12:30 Stop Time: 12:45 Total Time Billed (hr/min): 15 Billed Treatment Time 1 visit-FA 1 (15 min) ERIK DE LA GARZA Jun 15, 2021 12:59
[2021-06-15 16:00] VITALS: BP 109/54
--- NOTE | 2021-06-15 16:51 | Physician Query Clarification ---
Physician Query-General Query to Physician: The medical record reflects the following clinical evidence: Clinical Indicators: Per HPI: " She had been in her normal state of health until a few days ago. He says she was slurring her words. She became more confused and she was brought into the hospital". laborer beam house documentation of GCS 12, has improved to 14 since starting treatment Risk Factor(s): UTI, Sepsis Treatment: IV fluids, IV Meropenem, IV Zosyn, 1. Metabolic encephalopathy in the setting of UTI/Sepsis, present on admission 2. Other explanation of clinical findings 3. Unable to determine (no explanation for clinical findings) Please clarify and document your clinical opinion in the progress notes and discharge summary including the definitive and/or presumptive diagnosis, (suspected or probable), related to the above clinical findings. Please include clinical findings supporting your diagnosis. Karina Hough MSN, RN Clinical Truck Safety Inspector [phone] [email or web address] PHYSICIAN RESPONSE: Based on the clinical findings in the record, please respond to the query above on this document as an addendum. Physician Response: Physician Response 1 If you have questions please contact: Missile Inspector: Ext: Thank you for your time and cooperation. Clinical Truck Safety Inspector/Missile Inspector This is a permanent part of the medical re cord KARINA HOUGH Jun 15, 2021 16:51 JAYCOB FRIEDMAN MD Jul 02, 2021 15:06
--- NOTE | 2021-06-15 16:57 | Physician Query Clarification ---
Physician Query-General Query to Physician: The medical record reflects the following clinical evidence: Clinical Indicators: Documentation on Nursing admission assessment of a stage II pressure ulcer to coccyx/sacral area Risk Factor(s): Chronic Hypoxic Respiratory failure, Smoker, Weakness Treatment: Turn q 2 hours, "Aquacel AG applied to slough base, covered with Allevyn", Frequent skin assessments, 1. Pressure ulcer of sacral region, stage 2, present on admission 2. Other explanation of clinical findings 3. Unable to determine (no explanation for clinical findings) Please clarify and document your clinical opinion in the progress notes and discharge summary including the definitive and/or presumptive diagnosis, (susp ected or probable), related to the above clinical findings. Please include clinical findings supporting your diagnosis. Karina Hough MSN, RN Clinical Software Analyst [phone] [email or web address] PHYSICIAN RESPONSE: Based on the clinical findings in the record, please respond to the query above on this document as an addendum. Physician Response: Physician Response 1 If you have questions please contact: Principal Programmer: Ext: Thank you for your time and cooperation. Clinical Software Analyst/Principal Programmer This is a permanent part of the medical record KARINA HOUGH Jun 15, 2021 16:57 JAYCOB FRIEDMAN MD Jul 02, 2021 15:07
[2021-06-15 20:00] VITALS: BP 113/57
[2021-06-15] MEDS: TAMSULOSIN 0.4 MG (FLOMAX) CAP PO SCH (20:11)
[2021-06-15] MEDS: NS IV 1000 ML 1,000 ML IV SCH (22:10)
[2021-06-15 23:30] VITALS: BP 114/55
[2021-06-16] MEDS: RT-ALBUTEROL HFA 8.5 GM INHALER IH SCH ×4 (03:19→21:24)
[2021-06-16] MEDS: MEROPENEM 500 MG in WATER (STERILE) FOR INJECTION 10 ML IV SCH ×4 (03:57→23:47)
[2021-06-16 04:00] VITALS: BP 109/62
[2021-06-16 07:10] LABS: BASOPHILS # (AUTO) 0.1 10^3/uL (0.0-0.1); BASOPHILS % (AUTO) 1 % (0-10); EOSINOPHILS # (AUTO) 0.2 10^3/uL (0.0-0.3); EOSINOPHILS % (AUTO) 2 % (0-10); HEMATOCRIT 33 % (35-52); HEMOGLOBIN 9.9 g/dL (11.5-16.0); LYMPHOCYTES # (AUTO) 1.5 10^3/uL (1.0-4.0); LYMPHOCYTES % (AUTO) 14 % (12-44); MEAN CORPUSCULAR HEMOGLOBIN 31 pg (25-34); MEAN CORPUSCULAR HGB CONC 30 g/dL (32-36); MEAN CORPUSCULAR VOLUME 101 fL (80-99); MONOCYTES # (AUTO) 0.8 10^3/uL (0.0-1.0); MONOCYTES % (AUTO) 7 % (0-12); NEUTROPHILS # (AUTO) 8.4 10^3/uL (1.8-7.8); NEUTROPHILS % (AUTO) 75 % (42-75); PLATELET COUNT 303 10^3/uL (130-400); WHITE BLOOD COUNT 11.3 10^3/uL (4.3-11.0)
[2021-06-16 07:16] LABS: ALBUMIN 2.6 GM/DL (3.2-4.5); POTASSIUM 3.8 MMOL/L (3.6-5.0)
[2021-06-16 07:17] LABS: CALCIUM 8.2 MG/DL (8.5-10.1)
[2021-06-16 07:18] LABS: TOTAL PROTEIN 4.9 GM/DL (6.4-8.2)
[2021-06-16 07:20] LABS: BILIRUBIN,TOTAL 0.3 MG/DL (0.1-1.0)
[2021-06-16 07:22] LABS: CREATININE SERUM 0.63 MG/DL (0.60-1.30)
[2021-06-16 08:00] VITALS: BP 124/76
[2021-06-16] MEDS: MAGNESIUM 1 GM/100 ML IVPB 100 ML IV SCH (09:26)
[2021-06-16] MEDS: POTASSIUM CL 10MEQ/50ML IVPB 50 ML IV SCH (09:26)
[2021-06-16] MEDS: KCL 20 MEQ TAB (K-DUR) PO SCH (09:26)
[2021-06-16] MEDS: ASPIRIN 81 MG CHEW (CHILDREN'S ASA) PO SCH (09:28)
[2021-06-16] MEDS: LORATADINE (CLARITIN) 10 MG TAB PO SCH (09:28)
[2021-06-16] MEDS: APIXABAN 5 MG (ELIQUIS) TABLET PO SCH ×3 (09:28→23:16)
[2021-06-16] MEDS: polyethylene glycoL POWDER 17 GM (MIRALAX) PACK PO SCH ×2 (09:28→21:07)
[2021-06-16] MEDS: THYROID (ARMOUR) 60 MG TABLET PO SCH (09:28)
[2021-06-16] MEDS: dilTIAZem120 MG (CARDIZEM CD) CAP PO SCH (09:28)
[2021-06-16] MEDS: SENNA W/DOCUSATE (SENOKOT S) TABLET PO SCH ×2 (09:28→21:07)
[2021-06-16] MEDS: predniSONE 5 MG TAB PO SCH (09:28)
[2021-06-16] MEDS: NS IV 1000 ML 1,000 ML IV SCH (09:29)
[2021-06-16] MEDS: FLUTICASONE NASAL SPRAY (FLONASE) 16 GM BTL NS SCH (09:29)
--- NOTE | 2021-06-16 09:38 | Physical Therapy Progress Note ---
Therapy Progress Note Pt refusing PT session this date, she is sitting up in recliner with blankets covering her shoulders and legs, noticeable shaking. Pt states she is not feeling well and has tears in her eyes. She reports she has already been up and showered this date. Will return Friday to continue with PT POC. ELISEO VAUGHAN PT Jun 16, 2021 09:37
--- NOTE | 2021-06-16 11:36 | Diagnostic Imaging Report ---
EXAMINATION: Chest radiograph, portable AP view. DATE: 06/16/2021 11:01 AM INDICATION: 76-year-old female, shortness of breath, pneumonia. COMPARISON: June 13, 2021. FINDINGS: There is cervical spine hardware. Heart size and mediastinal contours are unchanged. There is a normal variant esophagus lobe. There is no identified pneumothorax. There is nonspecific right basilar airspace consolidation. There are chronic appearing bilateral rib deformities. IMPRESSION: 1. Nonspecific bibasilar airspace consolidation which may relate to infiltrate, effusion, and/or atelectasis. This is similar to June 13, 2021. Dictated by: Dictated on workstation # [id number]
[2021-06-16 11:39] VITALS: BP 119/80
--- NOTE | 2021-06-16 12:48 | Progress Note - Hospitalist ---
Subjective HPI/CC On Admission Date Seen by Provider: Jun 16, 2021 Time Seen by Provider: 09:50 Anna Singh is a 76 year old female with PMH COPD, chronic hypoxic respiratory failure on home oxygen, tobacco abuse, atrial fibrillation, osteoporosis, CKD, hypothyroidism, who presented with altered mental status. She is a poor historian due to her altered mental status. Her is present and provides the history. She had been in her normal state of health until a few days ago. He says she was slurring her words. She became more confused and she was brought into the hospital. He says she has had urinary tract infections b efore, but she used to be able to tell when she was getting them, until recently. Subjective/Events-last exam She is feeling better this morning. She is sitting in her bedside chair. She has more awake and alert. She has no complaints. Focused Exam Lactate Level 06/13/21 13:25: Lactic Acid Level 1.94 Objective Exam Vital Signs Vital Signs Date Time Temp Pulse Resp B/P (MAP) Pulse Ox O2 Delivery O2 Flow Rate FiO2 06/16/21 11:39 35.7 91 20 119/80 (93) 96 Nasal Cannula 1.00 06/13/21 16:24 21 Capillary Refill : Less Than 3 Seconds General Appearance: No Apparent Distress, Chronically ill Respiratory: Lungs Clear, Normal Breath Sounds, No Respiratory Distress Cardiovascular: Regular Rate, Rhythm, No Edema, No Murmur Gastrointestinal: Normal Bowel Sounds, Non Tender, Soft Extremity: Normal Inspection, Non Tender, No Pedal Edema Neurologic/Psychiatric: Alert, Normal Mood/Affect, Disoriented, Motor Weakness Skin: Normal Color, Warm/Dry Results/Procedures Lab Laboratory Tests 06/16/21 06:55 Patient resulted labs reviewed. Imaging: Reviewed Imaging Report Assessment/Plan Assessment and Plan Assess & Plan/Chief Complaint Sepsis due to UTI UA consistent with UTI Urine culture with Klebsiella aerogenes Continue meropenem Chronic respiratory failure with hypoxia COPD Continue home meds and oxygen MAT protocol AFib Continue home meds Cardiology consulted, appreciate assistance Debility PT/OT DVT prophylaxis: already receiving therapeutic anticoagulation Diagnosis/Problems Diagnosis/Problems (1) Sepsis Status: Acute Qualifiers: Sepsis type: sepsis due to unspecified organism Sepsis acute organ dysfunction status: with acute organ dysfunction Severe sepsis acute organ dysfunction type: encephalopathy Severe sepsis shock status: without septic shock Qualified Codes: A41.9 - Sepsis, unspecified organism; R65.20 - Severe sepsis without septic shock; G93.40 - Encephalopathy, unspecified (2) UTI (lower urinary tract infection) Status: Acute (3) Debility Status: Acute (4) Chronic respiratory failure with hypoxia Status: Chronic (5) COPD (chronic obstructive pulmonary disease) Status: Chronic MARGIE FARR MD Jun 16, 2021 12:48
--- NOTE | 2021-06-16 13:57 | Progress Note - Cardiology ---
Cardiology SOAP Progress Note Subjective: Gen weakness and malaise present No cp or palp or syncope No n/v/d Objective: I&O/Vital Signs 06/16/21 06/16/21 06/16/21 06/16/21 03:19 04:00 07:00 08:00 Temp 36.0 35.2 Pulse 81 79 86 Resp 20 20 B/P (MAP) 109/62 (78) 124/76 (92) Pulse Ox 91 95 97 O2 Delivery Nasal Cannula Nasal Cannula Nasal Cannula O2 Flow Rate 2.00 2.00 1.50 06/16/21 06/16/21 06/16/21 09:40 11:39 13:00 Temp 35.7 Pulse 91 80 Resp 20 B/P (MAP) 119/80 (93) Pulse Ox 95 96 O2 Delivery Nasal Cannula Nasal Cannula O2 Flow Rate 1.00 1.00 06/16/21 00:00 Intake Total 1910 ml Output Total 500 ml Balance 1410 ml Weight (Pounds): 110 Weight (Ounces): 0.0 Weight (Calculated Kilograms): 49.018860 Constitutional: AAO x 3, well-developed, well-nourished Respiratory: No accessory muscle use; other (fair entry, diminished bs at bases, scattered rhonchi) Cardiovascular: regular rate-rhythm, S1 and S2, systolic murmur (soft KIERSTEN at card base) Gastrointestional: No tender; soft; No guarding, No rebound; audible bowel sounds Extremities: No clubbing, No cyanosis, No significant edema Neurologic/Psychiatric: oriented x 3, other (moves all limbs) Skin: normal color, warm/dry Results/Procedures: Labs Laboratory Tests 06/16/21 06:55: White Blood Count 11.3H, Red Blood Count 3.25L, Hemoglobin 9.9L, Hematocrit 33L, Mean Corpuscular Volume 101H, Mean Corpuscular Hemoglobin 31, Mean Corpuscular Hemoglobin Concent 30L, Red Cell Distribution Width 15.3H, Platelet Count 303, Mean Platelet Volume 9.0, Immature Granulocyte % (Auto) 3, Neutrophils (%) (Auto) 75, Lymphocytes (%) (Auto) 14, Monocytes (%) (Auto) 7, Eosinophils (%) (Auto) 2, Basophils (%) (Auto) 1, Neutrophils # (Auto) 8.4H, Lymphocytes # (Auto) 1.5, Monocytes # (Auto) 0.8, Eosinophils # (Auto) 0.2, Basophils # (Auto) 0.1, Immature Granulocyte # (Auto) 0.3H, Sodium Level 142, Potassium Level 3.8, Chloride Level 112H, Carbon Dioxide Level 18L, Anion Gap 12, Blood Urea Nitrogen 4L, Creatinine 0.63, Estimat Glomerular Filtration Rate 92, BUN/Creatinine Ratio 6, Glucose Level 63L, Calcium Level 8.2L, Corrected Calcium 9.3, Total Bilirubin 0.3, Aspartate Amino Transf (AST/SGOT) 12, Alanine Aminotransferase (ALT/SGPT) 10, Alkaline Phosphatase 65, Total Protein 4.9L, Albumin 2.6L, Procalcitonin 0.10H Microbiology 06/13/21 Blood Culture - Preliminary, Resulted No growth 06/13/21 Urine Culture - Final, Complete Klebsiella aerogenes Laboratory Tests 06/15/21 07:15 06/16/21 06:55 A/P: Assessment: Mental status changes due to sepsis due to UTI COPD PAF - transient episode of atrial fibrillation in April 2021 and converted to sinus rhythm on Cardizem drip. She has been maintained on oral Cardizem and Eliquis - during this admission serial ECGs (06/13/21 and 06/14/21) have shown baseline artifact that the computer has read as A Fib but the rhythm has actually been sinus Echocardiogram done in April 2021 showing ejection fraction 50 to 55%, PA pressure 20 to 25 mmHg History of anemia requiring blood transfusion History of tobaccoism, has been an active smoker until her last admission in April 2021 History of multiple rib fractures, generalized weakness and debility. Plan: * Continue dilt and apixaban because of h/o of PAF. No PAF demonstrated during this study * Advised to continue to refrain from smoking * Monitor labs MARIA FERNANDA ELLIOTT MD FACP [facility] Jun 16, 2021 13:57
[2021-06-16] MEDS: LACTOBACILLUS ACIDOPHILUS (PROBIOTIC) CAPSULE PO SCH ×2 (15:20→18:52)
[2021-06-16 16:15] VITALS: BP 133/73
[2021-06-16 20:29] VITALS: BP 117/67
[2021-06-16] MEDS: TAMSULOSIN 0.4 MG (FLOMAX) CAP PO SCH ×2 (21:04→23:16)
[2021-06-16 23:47] VITALS: BP 92/53
[2021-06-17] VITALS (7 sets, daily range): BP systolic 107–135; BP diastolic 64–90
[2021-06-17] MEDS: RT-ALBUTEROL HFA 8.5 GM INHALER IH SCH ×4 (02:54→21:17)
[2021-06-17] MEDS: MEROPENEM 500 MG in WATER (STERILE) FOR INJECTION 10 ML IV SCH ×4 (03:02→20:32)
[2021-06-17 05:48] LABS: BASOPHILS # (AUTO) 0.1 10^3/uL (0.0-0.1); BASOPHILS % (AUTO) 0 % (0-10); EOSINOPHILS # (AUTO) 0.1 10^3/uL (0.0-0.3); EOSINOPHILS % (AUTO) 1 % (0-10); HEMATOCRIT 36 % (35-52); HEMOGLOBIN 11.4 g/dL (11.5-16.0); LYMPHOCYTES # (AUTO) 1.9 10^3/uL (1.0-4.0); LYMPHOCYTES % (AUTO) 16 % (12-44); MEAN CORPUSCULAR HEMOGLOBIN 31 pg (25-34); MEAN CORPUSCULAR HGB CONC 32 g/dL (32-36); MEAN CORPUSCULAR VOLUME 97 fL (80-99); MEAN PLATELET VOLUME 8.9 fL (9.0-12.2); MONOCYTES # (AUTO) 0.9 10^3/uL (0.0-1.0); MONOCYTES % (AUTO) 7 % (0-12); NEUTROPHILS # (AUTO) 8.5 10^3/uL (1.8-7.8); NEUTROPHILS % (AUTO) 72 % (42-75); PLATELET COUNT 405 10^3/uL (130-400); WHITE BLOOD COUNT 11.8 10^3/uL (4.3-11.0)
[2021-06-17 05:57] LABS: POTASSIUM 3.1 MMOL/L (3.6-5.0)
[2021-06-17 05:59] LABS: CALCIUM 8.6 MG/DL (8.5-10.1)
[2021-06-17 06:03] LABS: CREATININE SERUM 0.69 MG/DL (0.60-1.30)
[2021-06-17] MEDS: MAGNESIUM 1 GM/100 ML IVPB 100 ML IV SCH (06:07)
[2021-06-17] MEDS: KCL 20 MEQ TAB (K-DUR) PO SCH ×2 (07:29→08:49)
[2021-06-17] MEDS: POTASSIUM CL 10MEQ/50ML IVPB 50 ML IV SCH ×6 (07:30→10:59)
[2021-06-17] MEDS: predniSONE 5 MG TAB PO SCH (08:32)
[2021-06-17] MEDS: LACTOBACILLUS ACIDOPHILUS (PROBIOTIC) CAPSULE PO SCH ×3 (08:32→22:25)
[2021-06-17] MEDS: polyethylene glycoL POWDER 17 GM (MIRALAX) PACK PO SCH ×2 (08:33→19:27)
[2021-06-17] MEDS: FLUTICASONE NASAL SPRAY (FLONASE) 16 GM BTL NS SCH (08:33)
[2021-06-17] MEDS: THYROID (ARMOUR) 60 MG TABLET PO SCH (08:33)
[2021-06-17] MEDS: LORATADINE (CLARITIN) 10 MG TAB PO SCH (08:33)
[2021-06-17] MEDS: ASPIRIN 81 MG CHEW (CHILDREN'S ASA) PO SCH (08:33)
[2021-06-17] MEDS: APIXABAN 5 MG (ELIQUIS) TABLET PO SCH ×2 (08:33→22:25)
[2021-06-17] MEDS: SENNA W/DOCUSATE (SENOKOT S) TABLET PO SCH ×2 (08:34→19:27)
[2021-06-17] MEDS ORDERED: NICOTINE 21 MG (NICODERM) PATCH TD ONE (15:15)
--- NOTE | 2021-06-17 15:33 | Progress Note - Cardiology ---
Cardiology SOAP Progress Note Subjective: Gen malaise present No cp or palp or syncope or shortness of breath Objective: I&O/Vital Signs 06/17/21 06/17/21 06/17/21 06/17/21 03:43 07:00 07:23 08:00 Temp 36.6 36.1 Pulse 92 127 97 Resp 18 16 B/P (MAP) 131/81 (98) 119/79 (92) Pulse Ox 95 93 O2 Delivery Room Air Room Air Nasal Cannula O2 Flow Rate 4.00 06/17/21 06/17/21 11:35 13:00 Temp 36.5 Pulse 110 107 Resp 22 B/P (MAP) 107/64 (78) Pulse Ox 94 O2 Delivery Room Air 06/17/21 00:00 Intake Total 665 ml Output Total 650 ml Balance 15 ml Weight (Pounds): 110 Weight (Ounces): 0.0 Weight (Calculated Kilograms): 49.217852 Constitutional: AAO x 3, well-developed, well-nourished Respiratory: No accessory muscle use; other (fair entry, diminished bs at bases, scattered rhonchi) Cardiovascular: regular rate-rhythm, S1 and S2, systolic murmur (soft KIERSTEN at card base) Gastrointestional: No tender; soft; No guarding, No rebound; audible bowel sounds Extremities: No clubbing, No cyanosis, No significant edema Neurologic/Psychiatric: oriented x 3, other (moves all limbs) Skin: normal color, warm/dry Results/Procedures: Labs Laboratory Tests 06/17/21 05:02: White Blood Count 11.8H, Red Blood Count 3.70L, Hemoglobin 11.4L, Hematocrit 36, Mean Corpuscular Volume 97, Mean Corpuscular Hemoglobin 31, Mean Corpuscular Hemoglobin Concent 32, Red Cell Distribution Width 15.1H, Platelet Count 405H, Mean Platelet Volume 8.9L, Immature Granulocyte % (Auto) 3, Neutrophils (%) (Auto) 72, Lymphocytes (%) (Auto) 16, Monocytes (%) (Auto) 7, Eosinophils (%) (Auto) 1, Basophils (%) (Auto) 0, Neutrophils # (Auto) 8.5H, Lymphocytes # (Auto) 1.9, Monocytes # (Auto) 0.9, Eosinophils # (Auto) 0.1, Basophils # (Auto) 0.1, Immature Granulocyte # (Auto) 0.4H, Sodium Level 141, Potassium Level 3.1L, Chloride Level 109H, Carbon Dioxide Level 19L, Anion Gap 13, Blood Urea Nitrogen 2L, Creatinine 0.69, Estimat Glomerular Filtration Rate 83, BUN/Creatinine Ratio 3, Glucose Level 66L, Calcium Level 8.6, Magnesium Level 2.0 Microbiology 06/17/21 C. difficile GDH Antigen & Toxins - Final, Complete 06/13/21 Blood Culture - Preliminary, Resulted No growth 06/13/21 Urine Culture - Final, Complete Klebsiella aerogenes Laboratory Tests 06/16/21 06:55 06/17/21 05:02 A/P: Assessment: Mental status changes due to sepsis due to UTI COPD PAF - transient episode of atrial fibrillation in April 2021 and converted to sinus rhythm on Cardizem drip. She has been maintained on oral Cardizem and Eliquis - during this admission serial ECGs (06/13/21 and 06/14/21) have shown baseline artifact that the computer has read as A Fib but the rhythm has actually been sinus - ECG and tele strips of 06/16/21 show PAF with RVR Echocardiogram done in April 2021 showing ejection fraction 50 to 55%, PA pressure 20 to 25 mmHg History of anemia requiring blood transfusion History of tobaccoism, has been an active smoker until her last admission in April 2021 History of multiple rib fractures, generalized weakness and debility. Plan: * Increase dilt * Continue apixaban * Advised to continue to refrain from smoking * Replenish electrolytes * Monitor labs MARIA FERNANDA ELLIOTT MD FACP [facility] Jun 17, 2021 15:33
[2021-06-17] MEDS ORDERED: LORazepam INJ 2 MG/ML (ATIVAN) VIAL IVP PRN (17:45)
--- NOTE | 2021-06-17 18:18 | Progress Note - Hospitalist ---
Subjective HPI/CC On Admission Date Seen by Provider: Jun 17, 2021 Time Seen by Provider: 10:10 Anna Singh is a 76 year old female with PMH COPD, chronic hypoxic respiratory failure on home oxygen, tobacco abuse, atrial fibrillation, osteoporosis, CKD, hypothyroidism, who presented with altered mental status. She is a poor historian due to her altered mental status. Her is present and provides the history. She had been in her normal state of health until a few days ago. He says she was slurring her words. She became more confused and she was brought into the hospital. He says she has had urinary tract infections b efore, but she used to be able to tell when she was getting them, until recently. Subjective/Events-last exam She is confused today. She denies pain. She denies shortness of breath. She denies palpitations. She was refusing to take pills earlier and said, "I didn't know who those people were." Objective Exam Vital Signs Vital Signs Date Time Temp Pulse Resp B/P (MAP) Pulse Ox O2 Delivery O2 Flow Rate FiO2 06/17/21 15:30 36.7 101 18 125/65 (85) 95 Room Air 06/17/21 08:00 4.00 06/13/21 16:24 21 Capillary Refill : Less Than 3 Seconds General Appearance: No Apparent Distress, Chronically ill Respiratory: Lungs Clear, Normal Breath Sounds, No Respiratory Distress Cardiovascular: Regular Rate, Rhythm, No Edema, No Murmur Gastrointestinal: Normal Bowel Sounds, Non Tender, Soft Extremity: Normal Inspection, Non Tender, No Pedal Edema Neurologic/Psychiatric: Alert, Disoriented, Motor Weakness Skin: Normal Color, Warm/Dry Results/Procedures Lab Laboratory Tests 06/17/21 05:02 Patient resulted labs reviewed. Imaging: Reviewed Imaging Report Assessment/Plan Assessment and Plan Assess & Plan/Chief Complaint UTI UA consistent with UTI Urine culture with Klebsiella aerogenes Continue meropenem Delirium Reorient as needed Avoid delirium triggers as able Chronic respiratory failure with hypoxia COPD Continue home meds and oxygen MAT protocol AFib Continue diltiazem and Eliquis Cardiology consulted, appreciate assistance Debility PT/OT DVT prophylaxis: already receiving therapeutic anticoagulation Sepsis, resolved Diagnosis/Problems Diagnosis/Problems (1) Sepsis Status: Resolved Qualifiers: Sepsis type: sepsis due to unspecified organism Sepsis acute organ dysfunction status: with acute organ dysfunction Severe sepsis acute organ dysfunction type: encephalopathy Severe sepsis shock status: without septic shock Qualified Codes: A41.9 - Sepsis, unspecified organism; R65.20 - Severe sepsis without septic shock; G93.40 - Encephalopathy, unspecified Resolution Date/Time: 06/17/21 @ 18:17 (2) UTI (lower urinary tract infection) Status: Acute (3) Debility Status: Acute (4) Chronic respiratory failure with hypoxia Status: Chronic (5) COPD (chronic obstructive pulmonary disease) Status: Chronic (6) Delirium Status: Acute (7) Atrial fibrillation Status: Acute Qualifiers: Atrial fibrillation type: paroxysmal Qualified Codes: I48.0 - Paroxysmal atrial fibrillation MARGIE FARR MD Jun 17, 2021 18:18
[2021-06-17] MEDS: TAMSULOSIN 0.4 MG (FLOMAX) CAP PO SCH (22:25)
[2021-06-18] MEDS: MEROPENEM 500 MG in WATER (STERILE) FOR INJECTION 10 ML IV SCH ×4 (01:53→21:51)
[2021-06-18] MEDS: RT-ALBUTEROL HFA 8.5 GM INHALER IH SCH ×2 (02:46→07:38)
[2021-06-18 03:54] VITALS: BP 156/85
[2021-06-18 06:33] LABS: POTASSIUM 4.2 MMOL/L (3.6-5.0)
[2021-06-18 06:34] LABS: CALCIUM 9.1 MG/DL (8.5-10.1)
[2021-06-18] MEDS: KCL 20 MEQ TAB (K-DUR) PO SCH (06:36)
[2021-06-18] MEDS: POTASSIUM CL 10MEQ/50ML IVPB 50 ML IV SCH (06:36)
[2021-06-18 06:38] LABS: CREATININE SERUM 0.72 MG/DL (0.60-1.30)
[2021-06-18] MEDS: MAGNESIUM 1 GM/100 ML IVPB 100 ML IV SCH (07:21)
[2021-06-18] MEDS: polyethylene glycoL POWDER 17 GM (MIRALAX) PACK PO SCH ×2 (08:19→19:55)
[2021-06-18] MEDS: SENNA W/DOCUSATE (SENOKOT S) TABLET PO SCH ×2 (08:20→19:55)
[2021-06-18 08:49] VITALS: BP 116/72
[2021-06-18] MEDS: LACTOBACILLUS ACIDOPHILUS (PROBIOTIC) CAPSULE PO SCH ×3 (09:24→17:09)
[2021-06-18] MEDS: APIXABAN 5 MG (ELIQUIS) TABLET PO SCH ×2 (09:24→19:55)
[2021-06-18] MEDS: ASPIRIN 81 MG CHEW (CHILDREN'S ASA) PO SCH (09:24)
[2021-06-18] MEDS: predniSONE 5 MG TAB PO SCH (09:24)
[2021-06-18] MEDS: THYROID (ARMOUR) 60 MG TABLET PO SCH (09:27)
--- NOTE | 2021-06-18 09:30 | Physical Therapy Daily Note ---
PT Daily Note-Current Subjective Pt. in bed, incontinent of BM, states she needs to go to the bathroom. Mental Status Attachments: Sotom[place]or Catheter Transfers SCALE: Activities may be completed with or without assistive devices. 9-Ctalakgazo-txqruau completes the activity by him/herself with no assistance from a helper. 5-Set-up or Clean-up Assistance-helper sets up or cleans up; patient completes activity. [place] assists only prior to or following the activity. 4-Supervision or Touching Assistance-helper provides verbal cues and/or touching/steadying and/or contact guard assistance as patient completes activity. Assistance may be provided throughout the activity or intermittently. 3-Partial/Moderate Assistance-helper does LESS THAN HALF the effort. [place] lifts, holds or supports trunk or limbs, but provides less than half the effort. 2-Substantial/Maximal Assistance-helper does MORE THAN HALF the effort. [place] lifts or holds trunk or limbs and provides more than half the effort. 0-Stpivwhsr-awbert does ALL the effort. Patient does none of the effort to complete the activity. Or, the assistance of 2 or more helpers is required for the patient to complete the activity. If activity was not attempted, code reason: 7-Patient Refused. 9-Not Applicable-not attempted and the patient did not perform the activity before the current illness, exacerbation or injury. 10-Not Attempted due to Environmental Limitations-(lack of equipment, weather restraints, etc.). 88-Not Attempted due to Medical Conditions or Safety Concerns. Lying to Sitting/Side of Bed(Q: 3 Sit to Stand (QC): 4 Toilet Transfer (QC): 4 Gait Training Does the Patient Walk?: Yes Distance: 2 x 3 ft Gait Persons Needed: 1 Gait Assistive Device: FWW several cues needed for walker management and direction Treatments toileting, transfers Assessment Current Status: Fair Progress Pt. incontinent of BM in bed and during transfer to commode. Pt. is CGA for transfer to commode but is confused and needs several cues during transfer. Therapist assist with patient gown change and clean-up. Pt. transferred with mi n A commode to chair. Up in chair post session with call light, nurse present and all needs met. PT Graduate Advisor Goals Nursing Home Goals PT Graduate Advisor Goals Time Frame: Jun 30, 2021 Roll Left & Right (QC): 5 Sit to Lying (QC): 5 Lying-Sitting on Side/Bed(QC): 5 Sit to Stand (QC): 5 Chair/Itd-zh-Qjhtk Xfer(QC): 5 Toilet Transfer (QC): 5 Walk 10 feet (QC): 4 Walk 50ft with 2 Turns (QC): 4 Walk 150 ft (QC): 4 PT Plan Treatment/Plan Treatment Plan: Continue Plan of Care Treatment Plan: Bed Mobility, Education, Functional Activity [place], Functional Strength, Gait, Safety, Therapeutic Exercise, Transfers Treatment Duration: Jun 30, 2021 Frequency: 6 times per week Estimated Hrs Per Day: .25 hour per day Time/GCodes Time In: 0810 Time Out: 0835 Total Billed Treatment Time: 25 Total Billed Treatment 1, FA 25' DERIC GOODWIN PT Jun 18, 2021 09:30
[2021-06-18] MEDS: LORATADINE (CLARITIN) 10 MG TAB PO SCH (09:43)
[2021-06-18] MEDS: NICOTINE 21 MG (NICODERM) PATCH TD SCH (09:47)
[2021-06-18] MEDS: PATCH REMOVAL TP SCH (09:47)
[2021-06-18] MEDS: FLUTICASONE NASAL SPRAY (FLONASE) 16 GM BTL NS SCH (09:48)
[2021-06-18 11:03] VITALS: BP 116/72
--- NOTE | 2021-06-18 11:13 | Progress Note - Hospitalist ---
Subjective HPI/CC On Admission Date Seen by Provider: Jun 18, 2021 Time Seen by Provider: 09:30 Anna Singh is a 76 year old female with PMH COPD, chronic hypoxic respiratory failure on home oxygen, tobacco abuse, atrial fibrillation, osteoporosis, CKD, hypothyroidism, who presented with altered mental status. She is a poor historian due to her altered mental status. Her is present and provides the history. She had been in her normal state of health until a few days ago. He says she was slurring her words. She became more confused and she was brought into the hospital. He says she has had urinary tract infections b efore, but she used to be able to tell when she was getting them, until recently. Subjective/Events-last exam Patient reports feeling much better. Requesting to go home. at bedside and is worried about not having home health set up. Offered discharge tomorrow. and patient are both agreeable to this plan. Objective Exam Vital Signs Vital Signs Date Time Temp Pulse Resp B/P (MAP) Pulse Ox O2 Delivery O2 Flow Rate FiO2 06/18/21 11:03 37.0 100 94 21 06/18/21 08:49 18 116/72 (87) Room Air 06/17/21 08:00 4.00 Capillary Refill : Less Than 3 Seconds General Appearance: No Apparent Distress, Chronically ill Respiratory: Lungs Clear, No Respiratory Distress Cardiovascular: Regular Rate, Rhythm, No Murmur Gastrointestinal: Normal Bowel Sounds, Non Tender, Soft Neurologic/Psychiatric: Alert, Oriented x3 Results/Procedures Lab Laboratory Tests 06/18/21 06:15 Patient resulted labs reviewed. Imaging: Reviewed Imaging Report Assessment/Plan Assessment and Plan Assess & Plan/Chief Complaint UTI UA consistent with UTI Urine culture with Klebsiella aerogenes Continue meropenem due to allergies- can likely due a fuoroquinolone upon discharge Hopefully home tomorrow with resumption of home health Delirium Reorient as needed Avoid delirium triggers as able Improving per Chronic respiratory failure with hypoxia COPD Continue home meds and oxygen MAT protocol AFib Continue diltiazem and Eliquis Cardiology consulted, appreciate assistance Debility PT/OT DVT prophylaxis: already receiving therapeutic anticoagulation Sepsis, resolved JAYCOB FRIEDMAN MD Jun 18, 2021 11:13
--- NOTE | 2021-06-18 11:14 | D/C HH Face to Face Order ---
D/C Face to Face Orders Instructions for Patient Via [facility], Patient Instructions/FollowUp: Please continue take your medications as written. Please follow-up with Dr. Pereira to follow-up this hospital stay. Physician to follow Patient: Dr Pereira Discharge Diet for Home: No Restrictions Patient Data-Allergies,Ht & Wt Patient Allergies: Coded Allergies: nitrofurantoin (Verified Allergy, Severe, RASH, 12/10/15) ITCHING AND RASH sulfamethoxazole (Verified Allergy, Severe, RASH, 12/10/15) ITCHING AND RASH trimethoprim (Verified Allergy, Severe, RASH, 12/10/15) ITCHING AND RASH azithromycin (Verified Allergy, Unknown, 08/14/14) cefixime (Verified Allergy, Unknown, 08/14/14) Height (Feet): 5 Height (Inches): 3.00 Weight (Pounds): 110 Weight (Ounces): 0.0 Home Health Need/Face to Face Date of Face to Face: Jun 18, 2021 Clinical Findings: Generalized weakness and fatigue I have seen Pt [id number]: Yes Discharged To: Home Diagnosis/Conditions: UTI Patient is Homebound due to: Binh fall risk due to instabilty, Muscle weakness Homebound Status Due to the above stated illness, injury or surgical procedure (medical condition or diagnosis) and associated clinical findings, the patient is homebound because of his/her inability to leave home except with aid of a supportive device and/or person AND leaving the home requires a considerable and taxing effort or is medically contraindicated. Pt req the following assistanc: Aid of another person, Walker Home Health Nursing Orders Home Health Services Order: Nursing Services, Driver Recruiter-Evaluate & Treat, Physical Therapy-Evaluate & Treat Home Health Infusion Therapy Line Start Date: Jun 13, 2021 Therapy Orders Therapy Orders: OT (must have SN or PT order), Physical Therapy Therapy Specific Orders: Eval assistive deivces, Teach enviro modif ications/safety, Gait training, Increase strength/endurance Certify Stmt I certify that this patient is under my care and that I, a nurse practitioner or a physician; a bus assistant working with me, had a face to face encounter that -me ets the physician face to face encounter requirements with this patient as dated. JAYCOB FRIEDMAN MD Jun 18, 2021 11:14
[2021-06-18 12:15] VITALS: BP 105/69
--- NOTE | 2021-06-18 12:20 | Occupational Ther Daily Note ---
OT Current Status-Daily Note Subjective Pt. mumbles. Unable to stay awake. Mental Status/Objective Patient Orientation: Confused ADL-Treatment Therapy Code Descriptions/Definitions Functional Stephens Measure: 0=Not Assessed/NA 4=Minimal Assistance 1=Total Assistance 5=Supervision or Setup 2=Maximal Assistance 6=Modified Stephens 3=Moderate Assistance 7=Complete IndependenceSCALE: Activities may be completed with or without assistive devices. 9-Ixauptomui-ufswipi completes the activity by him/herself with no assistance from a helper. 5-Set-up or Clean-up Assistance-helper sets up or cleans up; patient completes activity. [place] assists only prior to or following the activity. 4-Supervision or Touching Assistance-helper provides verbal cues and/or touching/steadying and/or contact guard assistance as patient completes a ctivity. Assistance may be provided throughout the activity or intermittently. 3-Partial/Moderate Assistance-helper does LESS THAN HALF the effort. [place] lifts, holds or supports trunk or limbs, but provides less than half the effort. 2-Substantial/Maximal Assistance-helper does MORE THAN HALF the effort. [place] lifts or holds trunk or limbs and provides more than half the effort. 2-Yjwxaivdu-fawhrg does ALL the effort. Patient does none of the effort to complete the activity. Or, the assistance of 2 or more helpers is required for the patient to complete the activity. If activity was not attempted, code reason: 7-Patient Refused. 9-Not Applicable-not attempted and the patient did not perform the activity before the current illness, exacerbation or injury. 10-Not Attempted due to Environmental Limitations-(lack of equipment, weather restraints, etc.). 88-Not Attempted due to Medical Conditions or Safety Concerns. Oral Hygiene (QC): 2 Other Treatment Pt. up in chair asleep. She does open eyes to cues and does state a few words to OT. Agrees to brush her hair, but then is unable to brush it. Unable to hold brush. OT brushed hair for her. Pt. nods when OT asks if she would like to brush her teeth. Pt. is unable to hold toothbrush, but does indicate she wants teeth brushed. OT brushes pt teeth. Pt. is able to take some sips of water, swish in mouth, and spit out. Max cues given. Pt. closes eyes again. All needs met. Education OT Patient Education: Correct positioning, Modified ADL techniques, Progress toward Goal/Update tx plan, Purpose of tx/functional activities, Reviewed precautions, Rehab process Teaching Recipient: Patient Teaching Methods: Demonstration, Discussion Response to Teaching: Unable to Comprehend, Reinforcement Needed OT [facility] Goals Sales Representative Graphic Art Goals Time Frame: Jun 29, 2021 Eating (QC): 6 Oral Hygiene (QC): 5 Toileting Hygiene (QC): 4 Shower/Bathe Self (QC): 4 Upper Body Dressing (QC): 5 Lower Body Dressing (QC): 4 On/Off Footwear (QC): 4 Additional Goals: 1-Demonstrate ADL Tasks, 2-Verbalize Understanding, 3- ImproveStrength/[place] 1=Demonstrate adherence to instructed precautions during ADL tasks. 2=Patient will verbalize/demonstrate understanding of assistive devices/modifications for ADL. 3=Patient will improve strength/tolerance for activity to enable patient to perform ADL's. OT Education/Plan Discharge Recommendations Plan/Recommendations: Continue POC Treatment Plan/Plan of Care Treatment,Training & Education: Yes Patient would benefit from OT for education, treatment and training to promote independence in ADL's, mobility, safety and/or upper extremity function for ADL's. Plan of Care: ADL Retraining, Functional Mobility, UE Funct Exercise/Act Treatment Duration: Jun 22, 2021 Frequency: 5 times per week Estimated Hrs Per Day: .25 hour per day Rehab Potential: Guarded Time/GCodes Start Time: 10:20 Stop Time: 10:30 Total Time Billed (hr/min): 10 Billed Treatment Time 1, ADL MALIHA QUEEN OT Jun 18, 2021 12:20
--- NOTE | 2021-06-18 13:31 | Progress Note - Cardiology ---
Cardiology SOAP Progress Note Subjective: Gen malaise and weakness present Shortness of breath with mild exertion No cp or syncope or palp No n/v/d Poor appetite Objective: I&O/Vital Signs 06/18/21 06/18/21 06/18/21 06/18/21 02:46 03:54 07:00 07:38 Temp 36.2 Pulse 105 101 Resp 20 B/P (MAP) 156/85 (108) Pulse Ox 92 90 96 O2 Delivery Room Air Room Air Room Air 06/18/21 06/18/21 06/18/21 06/18/21 08:00 08:49 11:03 12:15 Temp 37.0 37.0 36.9 Pulse 100 100 104 Resp 18 18 B/P (MAP) 116/72 (87) 105/69 (81) Pulse Ox 94 94 94 96 O2 Delivery Room Air Room Air Room Air FiO2 21 06/18/21 00:00 Intake Total 580 ml Output Total 500 ml Balance 80 ml Weight (Pounds): 110 Weight (Ounces): 0.0 Weight (Calculated Kilograms): [id number] Constitutional: AAO x 3, well-developed, well-nourished Respiratory: No accessory muscle use; other (fair entry, diminished bs at bases, scattered rhonchi) Cardiovascular: regular rate-rhythm, S1 and S2, systolic murmur (soft KIERSTEN at card base) Gastrointestional: No tender; soft; No guarding, No rebound; audible bowel sounds Extremities: No clubbing, No cyanosis, No significant edema Neurologic/Psychiatric: oriented x 3, other (moves all limbs) Skin: normal color, warm/dry Results/Procedures: Labs Laboratory Tests 06/18/21 06:15: Sodium Level 138, Potassium Level 4.2, Chloride Level 110H, Carbon Dioxide Level 21, Anion Gap 7, Blood Urea Nitrogen 3L, Creatinine 0.72, Estimat Glomerular Filtration Rate 79, BUN/Creatinine Ratio 4, Glucose Level 81, Calcium Level 9.1, Magnesium Level 2.0 Microbiology 06/17/21 C. difficile GDH Antigen & Toxins - Final, Complete 06/13/21 Blood Culture - Preliminary, Resulted No growth 06/13/21 Urine Culture - Final, Complete Klebsiella aerogenes Laboratory Tests 06/17/21 05:02 06/18/21 06:15 A/P: Assessment: Mental status changes due to sepsis due to UTI, improving COPD PAF - transient episode of atrial fibrillation in April 2021 and converted to sinus rhythm on Cardizem drip. She has been maintained on oral Cardizem and Eliquis - during this admission serial ECGs (06/13/21 and 06/14/21) have shown baseline artifact that the computer has read as A Fib but the rhythm has actually been sinus - ECG and tele strips of 06/16/21 and 06/17/21 and 06/18/21 show PAF with RVR Echocardiogram done in April 2021 showing ejection fraction 50 to 55%, PA pressure 20 to 25 mmHg History of anemia requiring blood transfusion History of tobaccoism, has been an active smoker until her last admission in April 2021 History of multiple rib fractures, generalized weakness and debility. Plan: * Ventricular rate is still not controlled well. Further increase long-acting dilt * Continue apixaban * Advised to continue to refrain from smoking * Monitor labs MARIA FERNANDA ELLIOTT MD FACP FAC CCDS Jun 18, 2021 13:31
[2021-06-18 15:20] VITALS: BP 88/61
[2021-06-18 19:10] VITALS: BP 107/58
[2021-06-18] MEDS: TAMSULOSIN 0.4 MG (FLOMAX) CAP PO SCH (19:55)
[2021-06-19 00:16] VITALS: BP 97/65
[2021-06-19 04:11] VITALS: BP 99/63
[2021-06-19 05:50] LABS: POTASSIUM 3.8 MMOL/L (3.6-5.0)
[2021-06-19 05:55] LABS: CREATININE SERUM 0.72 MG/DL (0.60-1.30)
[2021-06-19 05:58] LABS: MAGNESIUM 1.9 MG/DL (1.6-2.4)
[2021-06-19] MEDS: MAGNESIUM 1 GM/100 ML IVPB 100 ML IV SCH (06:06)
[2021-06-19] MEDS: POTASSIUM CL 10MEQ/50ML IVPB 50 ML IV SCH (06:06)
[2021-06-19] MEDS: KCL 20 MEQ TAB (K-DUR) PO SCH (06:06)
[2021-06-19] MEDS: MEROPENEM 500 MG in WATER (STERILE) FOR INJECTION 10 ML IV SCH (06:20)
[2021-06-19 07:49] VITALS: BP 89/57
--- NOTE | 2021-06-19 08:42 | Discharge Summary ---
Diagnosis/Chief Complaint Date of Admission Jun 13, 2021 at 15:22 Date of Discharge Discharge Date: Jun 19, 2021 Admission Diagnosis Sepsis due to UTI Primary Care Christiano Pereira MD Discharge Diagnosis (1) Sepsis Status: Resolved (2) UTI (lower urinary tract infection) Status: Acute (3) Debility Status: Acute (4) Chronic respiratory failure with hypoxia Status: Chronic (5) COPD (chronic obstructive pulmonary disease) Status: Chronic (6) Delirium Status: Acute (7) Atrial fibrillation Status: Acute Discharge Summary Discharge Physical Exam Allergies: Coded Allergies: nitrofurantoin (Verified Allergy, Severe, RASH, 12/10/15) ITCHING AND RASH sulfamethoxazole (Verified Allergy, Severe, RASH, 12/10/15) ITCHING AND RASH trimethoprim (Verified Allergy, Severe, RASH, 12/10/15) ITCHING AND RASH azithromycin (Verified Allergy, Unknown, 08/14/14) cefixime (Verified Allergy, Unknown, 08/14/14) Vitals & I&Os Vital Signs Date Time Temp Pulse Resp B/P (MAP) Pulse Ox O2 Delivery O2 Flow Rate FiO2 06/19/21 11:00 36.7 96 18 89/57 95 Room Air 4.00 06/18/21 11:03 21 General Appearance: No Apparent Distress, Chronically ill Cardiovascular: Regular Rate, Rhythm, No Murmur Gastrointestinal: Normal Bowel Sounds, Soft Neurologic/Psychiatric: Alert, Oriented x3 Hospital Course Patient was admitted to the hospital due to metabolic encephalopathy secondary to sepsis from a urinary tract infection. She was started on IV antibiotics and improved. Urine culture revealed Klebsiella and she was treated with IV Merrem per sensitivities and patient allergies. She did well and mentation improved. She was transitioned to [facility] for discharge. She was discharged home in stable and improved condition with home health and is to follow-up with her primary care physician to follow-up this hospital stay. Labs (last 24 hrs) Laboratory Tests 06/19/21 05:27: Sodium Level 138, Potassium Level 3.8, Chloride Level 109H, Carbon Dioxide Level 18L, Anion Gap 11, Blood Urea Nitrogen 6L, Creatinine 0.72, Estimat Glomerular Filtration Rate 79, BUN/Creatinine Ratio 8, Glucose Level 81, Calcium Level 9.0, Magnesium Level 1.9 Microbiology 06/17/21 C. difficile GDH Antigen & Toxins - Final, Complete 06/13/21 Blood Culture - Final, Complete No growth 06/13/21 Urine Culture - Final, Complete Klebsiella aerogenes Patient resulted labs reviewed. kleaer INTERP AMPICILLIN R GENTAMICIN S Cefuroxime S CEFAZOLIN R CEFTRIAXONE S AMOX/CLAV R TRIMETH/SULFA S LEVOFLOXACIN S CIPROFLOXACIN S MEROPENEM S NITROFURANTOIN R Pending Labs Imaging: Reviewed Imaging Report Discussion & Recommendations Discharge Planning: >30 minutes discharge planning Discharge Home Medications: Active Scripts Active Multaq (Dronedarone HCl) 400 Mg Tablet 400 Mg PO BID Eliquis (Apixaban) 5 Mg Tablet 5 Mg PO BID Diltiazem 24Hr ER (Diltiazem HCl) 240 Mg Cap.er.24h 240 Mg PO DAILY Ciprofloxacin HCl 500 Mg Tablet 500 Mg PO BID Reported Tylenol (Acetaminophen) 325 Mg Capsule 325-650 Mg PO Q8H PRN Alprazolam 0.5 Mg Tablet 0.5 Mg PO BID PRN Furosemide 40 Mg Tablet 40 Mg PO DAILY K-Tab ER (Potassium Chloride) 10 Meq Tablet.er 10 Meq PO DAILY Hydrocodone-Acetamin 10-325 mg (Hydrocodone/Acetaminophen) 1 Each Tablet 1 Each PO QID PRN [place] Thyroid (Thyroid,Pork) 60 Mg Tablet 90 Mg PO DAILY TAKES 1 & (60MG) TABS Vitamin D2 (Ergocalciferol (Vitamin D2)) 1,250 Mcg Capsule 1,250 Mcg PO FRIDAY LAST FILLED 04-01-2021 #4/ DAY SUPPLY Rhinocort Allergy (Budesonide) 8.43 Ml [place].pump 2 Sprays NS DAILY Flintstones with Iron Tab Chew (Pedi Mv No.79/Ferrous Fumarate) 18 Mg Tab.chew 18 Mg PO DAILY Citalopram HBr (Citalopram Hydrobromide) 20 Mg Tablet 20 Mg PO HS Promethazine-Codeine Solution (Promethazine HCl/Codeine) 473 Ml Syrup 5 Ml PO HS Chlorhexidine Gluconate 473 Ml Mouthwash 15 Ml PO BID TAKES AFTER BREATHING TREATMENTS Proair Hfa (Albuterol Sulfate) 1 Puff Puff 2 Puff IH Q4H PRN Zyrtec (Cetirizine HCl) 10 Mg Tablet 10 Mg PO DAILY Flomax (Tamsulosin HCl) 0.4 Mg Cap 0.4 Mg PO HS Perforomist (Formoterol Fumarate) 20 Mcg/2 Ml Vial.neb 2 Ml NEB BID Ipratropium [place] 0.2 Mg/1 Ml Solution 0.2 Mg IH TID PRN Vitamin D3 (Cholecalciferol (Vitamin D3)) 50 Mcg Capsule 50 Mcg PO DAILY Calcium (Calcium Carbonate) 600 Mg Tablet 1,200 Mg PO DAILY Spironolactone 25 Mg Tablet 25 Mg PO DAILY Aspirin 81 Mg Tab.chew 81 Mg PO DAILY Instructions to patient/family Please see electronic discharge instructions given to patient. Problem Qualifiers (1) Sepsis: Sepsis type: sepsis due to unspecified organism Sepsis acute organ dysfunction status: with acute organ dysfunction Severe sepsis acute organ dysfunction type: encephalopathy Severe sepsis shock status: without septic shock Qualified Codes: A41.9 - Sepsis, unspecified organism; R65.20 - Severe sepsis without septic shock; G93.40 - Encephalopathy, unspecified (2) Atrial fibrillation: Atrial fibrillation type: paroxysmal Qualified Codes: I48.0 - Paroxysmal atrial fibrillation JAYCOB FRIEDMAN MD Jun 19, 2021 08:42
--- NOTE | 2021-06-19 08:43 | Cardiology Progress Note ---
Subjective Date Seen by Provider: Jun 19, 2021 Time Seen by Provider: 08:41 Subjective/Events-last exam Patient is laying down in bed, feeling better, more awake, pleasant. Review of Systems General: No Chills, No Night Sweats; Fatigue; No Malaise, No Appetite, No Other HEENT: No Head Aches, No Visual Changes, No Eye Pain, No Ear Pain, No Dysphasia, No Sinus Congestion, No Post Nasal Drip, No Sore Throat, No Other Pulmonary: No Dyspnea, No Cough, No Pleuritic Chest Pain, No Other Cardiovascular: No: Chest Pain, Palpitations, Orthopnea, Paroxysmal Noc. Dyspnea, Edema, Lt Headedness, Other Objective-Cardiology Exam Last Set of Vital Signs Vital Signs 06/17/21 06/18/21 06/19/21 08:00 11:03 07:49 Temp 36.7 Pulse 96 Resp 18 B/P (MAP) 89/57 (68) Pulse Ox 95 O2 Delivery Room Air O2 Flow Rate 4.00 FiO2 21 I&O Intake and Output 06/19/21 00:00 Intake Total 400 ml Output Total 500 ml Balance -100 ml Intake Oral 390 ml IV Total 10 ml Output Urine Total 500 ml # Voids 1 # Bowel Movements 5 General: Alert, Oriented X3, Cooperative HEENT: Atraumatic, PERRLA Neck: Supple, No JVD, No Thyromegaly Lungs: Clear to Auscultation, Normal Air Movement Heart: Regular Rate, Normal S1, Normal S2, No Murmurs Abdomen: Normal Bowel Sounds, Soft, No Tenderness, No Hepatosplenomegaly, No Masses Extremities: No Clubbing, No Cyanosis, No Edema, Normal Pulses, No Tenderness/Swelling Skin: No Rashes, No Breakdown, No Significant Lesion Neuro: Normal Gait, Normal Speech, Strength at 5/5 X4 Ext, Normal Tone, Sensation Intact Psych/Mental Status: Mental Status NL, Mood NL Results Lab Laboratory Tests 06/19/21 05:27 A/P-Cardiology Admission Diagnosis Sepsis Urinary tract infection Change in mental status Hypoxemia Assessment/Plan Change in mental status, returned to baseline, feeling better. Continue to monitor Urinary tract infection, improved, followed and managed by primary care physician Progressive shortness of breath, requiring higher dose of oxygen, probable underlying pneumonia. Managed by primary care team, I recommend evaluating ABG Paroxysmal atrial fibrillation, had a transient episode of atrial fibrillation in April 2021 and converted to sinus rhythm on Cardizem drip. She has been maintained on oral Cardizem and Eliquis. Initial 2 EKGs on admission showed artifact in sinus rhythm although the computer read as A. fib. Patient had few breakthrough atrial fibrillation episodes on telemetry and the EKG from 06/17/2021 showing atrial fibrillation unable to tolerate higher dose of diltiazem due to hypotension. I will add Multaq and decrease diltiazem dose. Monitor tolerance and response Echocardiogram done in April 2021 showing ejection fraction 50 to 55%, PA pressure 20 to 25 mmHg. Continue to monitor History of anemia requiring blood transfusion, continue to monitor H&H History of tobaccoism, has been an active smoker until her last admission in April 2021 History of multiple rib fractures, generalized weakness and debility. AKOSUA NEWELL MD Jun 19, 2021 08:43
[2021-06-19] MEDS ORDERED: CIPR500T5 PO ×2 (08:49)
[2021-06-19] MEDS ORDERED: DRONEDARONE TABLET 400 MG TABLET PO SCH (09:00)
[2021-06-19] MEDS: APIXABAN 5 MG (ELIQUIS) TABLET PO SCH (09:14)
[2021-06-19] MEDS: LORATADINE (CLARITIN) 10 MG TAB PO SCH (09:14)
[2021-06-19] MEDS: THYROID (ARMOUR) 60 MG TABLET PO SCH (09:16)
[2021-06-19] MEDS: LACTOBACILLUS ACIDOPHILUS (PROBIOTIC) CAPSULE PO SCH (09:16)
[2021-06-19] MEDS: predniSONE 5 MG TAB PO SCH (09:16)
[2021-06-19] MEDS: ASPIRIN 81 MG CHEW (CHILDREN'S ASA) PO SCH (09:16)
[2021-06-19] MEDS: SENNA W/DOCUSATE (SENOKOT S) TABLET PO SCH (09:17)
[2021-06-19] MEDS: NICOTINE 21 MG (NICODERM) PATCH TD SCH (09:17)
[2021-06-19] MEDS: PATCH REMOVAL TP SCH (09:17)
[2021-06-19] MEDS: polyethylene glycoL POWDER 17 GM (MIRALAX) PACK PO SCH (09:18)
[2021-06-19] MEDS: FLUTICASONE NASAL SPRAY (FLONASE) 16 GM BTL NS SCH (09:18)
--- NOTE | 2021-06-19 09:22 | Physical Therapy Daily Note ---
PT Daily Note-Current Subjective Pt in bed w/ in room upon arrival. Pt reluctantly agrees to tx. Pt states no pain but c/o being cold throughout tx. Mental Status Patient Orientation: Person, Confused, Place Transfers SCALE: Activities may be completed with or without assistive devices. 8-Zxcwofrizd-fbjkumg completes the activity by him/herself with no assistance from a helper. 5-Set-up or Clean-up Assistance-helper sets up or cleans up; patient completes activity. [place] assists only prior to or following the activity. 4-Supervision or Touching Assistance-helper provides verbal cues and/or touching/steadying and/or contact guard assistance as patient completes activity. Assistance may be provided throughout the activity or intermittently. 3-Partial/Moderate Assistance-helper does LESS THAN HALF the effort. [place] lifts, holds or supports trunk or limbs, but provides less than half the effort. 2-Substantial/Maximal Assistance-helper does MORE THAN HALF the effort. [place] lifts or holds trunk or limbs and provides more than half the effort. 7-Ayxfvszpp-whvupp does ALL the effort. Patient does none of the effort to complete the activity. Or, the assistance of 2 or more helpers is required for the patient to complete the activity. If activity was not attempted, code reason: 7-Patient Refused. 9-Not Applicable-not attempted and the patient did not perform the activity before the current illness, exacerbation or injury. 10-Not Attempted due to Environmental Limitations-(lack of equipment, weather restraints, etc.). 88-Not Attempted due to Medical Conditions or Safety Concerns. Roll Left & Right (QC): 5 Sit to Lying (QC): 5 Lying to Sitting/Side of Bed(Q: 5 Sit to Stand (QC): 5 Gait Training Does the Patient Walk?: Yes Distance: 20' x2 Walk 10 feet (QC): 5 Gait Persons Needed: 1 Gait Assistive Device: FWW Exercises Supine Ex: Ankle pumps Supine Reps: 10 Treatments Pt completes supine ex followed by bed mobility w/ SBA. Pt sit to stand and amb around bed and to BR w/ FWW and SBA. Pt needing A w/ doffing/donning brief as well as cleaning. Pt amb back to bed, able to sit to supine SBA. Pt left in bed w/ all needs met, call light in hand. Assessment Current Status: Good Progress Pt progressing well, just requires encouragement for tx. PT Mcc Goals Spanish Medical Interpreter Goals PT Spanish Medical Interpreter Goals Time Frame: Jun 30, 2021 Roll Left & Right (QC): 5 Sit to Lying (QC): 5 Lying-Sitting on Side/Bed(QC): 5 Sit to Stand (QC): 5 Chair/Enw-vs-Kqvwv Xfer(QC): 5 Toilet Transfer (QC): 5 Walk 10 feet (QC): 4 Walk 50ft with 2 Turns (QC): 4 Walk 150 ft (QC): 4 PT Plan Treatment/Plan Treatment Plan: Continue Plan of Care Treatment Plan: Bed Mobility, Education, Functional Activity [place], Functional Strength, Gait, Safety, Therapeutic Exercise, Transfers Treatment Duration: Jun 30, 2021 Frequency: 6 times per week Estimated Hrs Per Day: .25 hour per day Time/GCodes Time In: 828 Time Out: 840 Total Billed Treatment Time: 12 Total Billed Treatment SHAINA Amos SYDNEY PTA Jun 19, 2021 09:22
[2021-06-19] MEDS ORDERED: DILT240C91 PO ×2 (09:37)
[2021-06-19] MEDS ORDERED: DRON400T6 PO ×2 (09:37)
[2021-06-19] MEDS ORDERED: APIX5TAB PO ×2 (09:37)
[2021-06-19 11:00] VITALS: BP 89/57
== END 2021-06-19 10:40 | disposition home health service (06) | DRG 871 ==
LOC: EDUNIT# 13:10 → ER 13:12 → 4TH 15:22
PROVIDERS: ADMIT Internal Medicine; ATTEND Family Medicine
DX: A41.59 Other Gram-negative sepsis (principal); G93.41 Metabolic encephalopathy; J96.11 Chronic respiratory failure with hypoxia; F05 Delirium due to known physiological condition; N39.0 Urinary tract infection, site not specified; R65.20 Severe sepsis without septic shock; I12.9 Hypertensive chronic kidney disease with stage 1 through stage 4 chronic kidney disease, or unspecified chronic kidney disease; M81.0 Age-related osteoporosis without current pathological fracture; Z66 Do not resuscitate; E03.9 Hypothyroidism, unspecified; F41.9 Anxiety disorder, unspecified; J44.9 Chronic obstructive pulmonary disease, unspecified; N18.9 Chronic kidney disease, unspecified; I48.0 Paroxysmal atrial fibrillation; L89.152 Pressure ulcer of sacral region, stage 2; Z87.891 Personal history of nicotine dependence; Z77.22 Contact with and (suspected) exposure to environmental tobacco smoke (acute) (chronic); Z86.2 Personal history of diseases of the blood and blood-forming organs and certain disorders involving the immune mechanism; Z99.81 Dependence on supplemental oxygen; Z79.82 Long term (current) use of aspirin; Z79.899 Other long term (current) drug therapy; Z88.2 Allergy status to sulfonamides; Z88.1 Allergy status to other antibiotic agents
CPT/HCPCS: 36415; 51702; 70450; 71045; 80048; 80053; 81000; 82947; 83605; 83735; 84145; 85025; 85610; 85730; 86141; 87015; 87040; 87045; 87046; 87077; 87088; 87186; 87324; 87449; 87636; 87899; 93005; 94640; 96374

== ENCOUNTER 2021-06-25 09:28 | Emergency (ER) | payer MEDICARE ==
[~2021-06-25] VITALS: Ht 160 cm; Wt 50.0 kg
[~2021-06-25 09:28] MED LIST changes: +ACET325C7 PO; +ALPR0.5T7 PO; +APIX5TAB PO; +CIPR500T5 PO; +DILT240C91 PO; +DRON400T6 PO; +FURO40TA4 PO; +POTA10TA PO
--- NOTE | 2021-06-25 10:01 | ED General ---
General Stated Complaint: GENERALIZED WEAKNESS Source of Information: Patient, Spouse Exam Limitations: No Limitations History of Present Illness Date Seen by Provider: Jun 25, 2021 Time Seen by Provider: 09:35 Initial Comments Patient to the ER by EMS with chief complaint of weakness altered mental status decreased appetite. Patient says she had an occasional cough and felt poor for the past week. She says she was recently in the hospital a few weeks ago for pneumonia. She says she was tested negative for Covid at that time. She has not been tested recently. She has had vaccines for COVID-19. arrives and states that she has been in the hospital twice with pneumonia the first time. She went to the [facility] for about a week and had to come back for a UTI admission. Patient has chronic back pain for which she uses hydrocodone 10 x 325 every 6 hours on the clock. She recently has had a lot of loose stools related to all the antibiotics she was on. She took an Imodium 3 or 4 days ago and has had poor appetite and has not had to have a bowel movement or urinate since then according to her . She is a patient of Dr. Turcios. Allergies and Home Medications Allergies Coded Allergies: nitrofurantoin (Verified Allergy, Severe, RASH, 12/10/15) ITCHING AND RASH sulfamethoxazole (Verified Allergy, Severe, RASH, 12/10/15) ITCHING AND RASH trimethoprim (Verified Allergy, Severe, RASH, 12/10/15) ITCHING AND RASH azithromycin (Verified Allergy, Unknown, 08/14/14) cefixime (Verified Allergy, Unknown, 08/14/14) Patient Home Medication List Home Medication List Reviewed: Yes Acetaminophen (Tylenol) 325 Mg Capsule, 325-650 MG PO Q8H PRN for PAIN-MILD (1- 4), (Reported) Entered as Reported by: ZORAN BUTT on 06/14/21 0927 Albuterol Sulfate (Proair Hfa) 1 Puff Puff, 2 PUFF IH Q4H PRN for WHEEZING, (Reported) Entered as Reported by: JULIAN ALVARADO on 11/04/19 1241 Alprazolam (Alprazolam) 0.5 Mg Tablet, 0.5 MG PO BID PRN for ANXIETY Prescribed by: GELY CAMERON on 06/25/21 1427 Last Action: New Order Apixaban (Eliquis) 5 Mg Tablet, 5 MG PO BID Prescribed by: JAYCOB FRIEDMAN on 06/19/21 0937 Aspirin (Aspirin) 81 Mg Tab.chew, 81 MG PO DAILY, (Reported) Entered as Reported by: JULIAN ALVARADO on 11/04/19 1235 Budesonide (Rhinocort Allergy) 8.43 Ml [place].pump, 2 SPRAYS NS DAILY, (Reported) Entered as Reported by: EVIN HOLLAND on 04/09/21 1305 Calcium Carbonate (Calcium) 600 Mg Tablet, 1,200 MG PO DAILY, (Reported) Entered as Reported by: JULIAN ALVARADO on 11/04/19 1241 Cetirizine HCl (Zyrtec) 10 Mg Tablet, 10 MG PO DAILY, (Reported) Entered as Reported by: JULIAN ALVARADO on 11/04/19 1241 Chlorhexidine Gluconate (Chlorhexidine Gluconate) 473 Ml Mouthwash, 15 ML PO BID, (Reported) Entered as Reported by: EVIN HOLLAND on 04/09/21 1305 Cholecalciferol (Vitamin D3) (Vitamin D3) 50 Mcg Capsule, 50 MCG PO DAILY, (Reported) Entered as Reported by: JULIAN ALVARADO on 11/04/19 1241 Ciprofloxacin HCl (Ciprofloxacin HCl) 500 Mg Tablet, 500 MG PO BID Prescribed by: JAYCOB FRIEDMAN on 06/19/21 0849 Citalopram Hydrobromide (Citalopram HBr) 20 Mg Tablet, 20 MG PO HS, (Reported) Entered as Reported by: EVIN HOLLAND on 04/09/21 1305 Diltiazem HCl (Diltiazem 24Hr ER) 240 Mg Cap.er.24h, 240 MG PO DAILY Prescribed by: JAYCOB FRIEDMAN on 06/19/21 09 Dronedarone HCl (Multaq) 400 Mg Tablet, 400 MG PO BID Prescribed by: JAYCOB FRIEDMAN on 06/19/21 09 Ergocalciferol (Vitamin D2) (Vitamin D2) 1,250 Mcg Capsule, 1,250 MCG PO FRIDAY, (Reported) Entered as Reported by: EVIN HOLLAND on 04/11/21 1244 Formoterol Fumarate (Perforomist) 20 Mcg/2 Ml Vial.neb, 2 ML NEB BID, (Reported) Entered as Reported by: JULIAN ALVARADO on 11/04/19 1241 Furosemide (Furosemide) 40 Mg Tablet, 40 MG PO DAILY, (Reported) Entered as Reported by: ZORAN BUTT on 06/14/21926 Hydrocodone/Acetaminophen (Hydrocodone-Acetamin 10-325 mg) 1 Each Tablet, 1 EACH PO QID PRN for PAIN-MODERATE (5-7) Prescribed by: GELY CAMERON on 06/25/21 1427 Last Action: New Order Ipratropium [place] (Ipratropium [place]) 0.2 Mg/1 Ml Solution, 0.2 MG IH TID PRN for SHORTNESS OF BREATH, (Reported) Entered as Reported by: JULIAN ALVARADO on 11/04/19 124 Pedi Mv No.79/Ferrous Fumarate (Flintstones with Iron Tab Chew) 18 Mg Tab.chew, 18 MG PO DAILY, (Reported) Entered as Reported by: EVIN HOLLAND on 04/09/21 1305 Potassium Chloride (K-Tab ER) 10 Meq Tablet.er, 10 MEQ PO DAILY, (Reported) Entered as Reported by: ZORAN BUTT on 06/14/21926 Promethazine HCl/Codeine (Promethazine-Codeine Solution) 473 Ml Syrup, 5 ML PO HS, (Reported) Entered as Reported by: EVIN HOLLAND on 04/09/21 1305 Spironolactone (Spironolactone) 25 Mg Tablet, 25 MG PO DAILY, (Reported) Entered as Reported by: JULIAN ALVARADO on 11/04/19 1241 Tamsulosin HCl (Flomax) 0.4 Mg Cap, 0.4 MG PO HS, (Reported) Entered as Reported by: JULIAN ALVARADO on 11/04/19 124 Thyroid,Pork ([place] Thyroid) 60 Mg Tablet, 90 MG PO DAILY, (Reported) Entered as Reported by: ZORAN BUTT on 04/12/21 1029 Discontinued Medications Prednisone (Prednisone) 5 Mg Tablet, 10 MG PO DAILY, (Reported) Entered as Reported by: EVIN HOLLAND on 04/09/21 1305 Propranolol HCl (Propranolol HCl ER) 120 Mg Cap.sa.24h, 120 MG PO DAILY, (Reported) Entered as Reported by: EVIN HOLLAND on 04/09/21 1305 Review of Systems Review of Systems Constitutional: No chills, No diaphoresis, No fever; malaise, weakness EENTM: No ear discharge, No ear pain Respiratory: cough (occ) Cardiovascular: No chest pain, No palpitations Gastrointestinal: abdominal pain; No nausea, No vomiting Genitourinary: No discharge, No dysuria Musculoskeletal: see HPI, back pain; No joint pain Skin: No see HPI, No change in color, No change in hair/nails Psychiatric/Neurological: Denies Anxiety, Denies Depressed All Other Systems Reviewed Negative Unless Noted: Yes Past Qcxbdgg-Belzpj-Byzkba Hx Patient Social History Tobacco Use?: Yes Tobacco type used: Cigarettes Smoking Status: Current Everyday Smoker Use of E-Cig and/or Vaping dev: No Substance use?: No Immunizations Up To Date PED Vaccines UTD: No First/Initial COVID19 Vaccinat: 2020 Second COVID19 Vaccination Aron: 2020 Seasonal Allergies Seasonal Allergies: Yes Past Medical History Surgeries: Yes (cervical spine, teeth removal) Breast, Orthopedic, Thyroidectomy Respiratory: Yes Pneumonia, COPD Cardiac: No (lower extremity edema) Hypertension Neurological: Yes (TREMORS) Headaches /Migraines Reproductive Disorders: No Female Reproductive Disorders: Denies Genitourinary: Yes (retention) Bladder Infection Gastrointestinal: No Musculoskeletal: Yes (CERVICAL SPINE SX) Osteoporosis, Chronic Back Pain Endocrine: Yes (BENIGN THYROID TUMOR) Hypothyroidsim HEENT: No Cancer: No Psychosocial: Yes Anxiety Integumentary: No Blood Disorders: No Family Medical History Bladder problems G8 SISTER FH: lung cancer 19 FATHER Thyroid disease 19 MOTHER Cancer Physical Exam Vital Signs Vital Signs - First Documented 06/25/21 09:28 Temp 36.7 Pulse 80 Resp 18 B/P (MAP) 113/63 (80) Pulse Ox 100 O2 Delivery Nasal Cannula O2 Flow Rate 2.00 Capillary Refill : Height, Weight, BMI Height: 5'3.00" Weight: 110lbs. 0.0oz. 49.279565kd; 26.56 BMI Method:Stated General Appearance: Chronically ill, Thin Eyes: Bilateral Eye Normal Inspection, Bilateral Eye PERRL, Bilateral Eye EOMI HEENT: PERRL/EOMI, TMs Normal; No Pharynx Normal, No Moist Mucous Membranes Neck: Full Range of Motion, Normal Inspection, Non Tender, Supple Respiratory: Lungs Clear, Normal Breath Sounds, No Accessory Muscle Use, Respiratory Distress (Mild oxygen saturations 90% on room air nonlabored) Cardiovascular: Regular Rate, Rhythm, Normal Peripheral Pulses Gastrointestinal: Normal Bowel Sounds, Non Tender, Soft Extremity: Normal Capillary Refill, Normal Inspection, Non Tender, No Calf Tenderness, No Pedal Edema Neurologic/Psychiatric: Alert, Oriented x3, No Motor/Sensory Deficits Skin: Normal Color, Warm/Dry Progress/Results/Core Measures Suspected Sepsis SIRS Temperature: Pulse: Respiratory Rate: Laboratory Tests 06/25/21 11:10: White Blood Count 15.5H Blood Pressure / Mean: Laboratory Tests 06/25/21 11:10: Platelet Count 524H 06/25/21 11:19: Creatinine 0.74, Total Bilirubin 0.4 Results/Orders Lab Results Laboratory Tests Test 06/25/21 10:04 06/25/21 10:14 06/25/21 11:10 06/25/21 11:19 Range/Units Blood Gas Puncture Site RR Blood Gas Patient Temperature 37 Arterial Blood pH 7.39 7.37-7.43 Arterial Blood Partial Pressure CO2 40 35-45 MMHG Arterial Blood Partial Pressure O2 136 H 79-93 MMHG Arterial Blood HCO3 24 23-27 MMOL/L Arterial Blood Total CO2 24.8 21.0-31.0 MMOL/L Arterial Blood Oxygen Saturation 99 94-100 % Arterial Blood Base Excess -0.7 -2.5-2.5 MMOL/L [place] Test YES-POS Blood Gas Ventilator Setting NO Blood Gas Inspired Oxygen 2L Influenza Type A (RT-PCR) Not Detected Not Detecte Influenza Type B (RT-PCR) Not Detected Not Detecte SARS-CoV-2 RNA (RT-PCR) Not Detected Not Detecte White Blood Count 15.5 H 4.3-11.0 10^3/uL Red Blood Count 3.81 3.80-5.11 10^6/uL Hemoglobin 11.8 11.5-16.0 g/dL Hematocrit 39 35-52 % Mean Corpuscular Volume 103 H 80-99 fL Mean Corpuscular Hemoglobin 31 25-34 pg Mean Corpuscular Hemoglobin Concent 30 L 32-36 g/dL Red Cell Distribution Width 16.1 H 10.0-14.5 % Platelet Count 524 H 130-400 10^3/uL Mean Platelet Volume 8.9 L 9.0-12.2 fL Immature Granulocyte % (Auto) 4 % Neutrophils (%) (Auto) 70 42-75 % Lymphocytes (%) (Auto) 14 12-44 % Monocytes (%) (Auto) 8 0-12 % Eosinophils (%) (Auto) 3 0-10 % Basophils (%) (Auto) 0 0-10 % Neutrophils # (Auto) 10.9 H 1.8-7.8 10^3/uL Lymphocytes # (Auto) 2.2 1.0-4.0 10^3/uL Monocytes # (Auto) 1.3 H 0.0-1.0 10^3/uL Eosinophils # (Auto) 0.5 H 0.0-0.3 10^3/uL Basophils # (Auto) 0.1 0.0-0.1 10^3/uL Immature Granulocyte # (Auto) 0.7 H 0.0-0.1 10^3/uL Neutrophils % (Manual) 80 % Lymphocytes % (Manual) 13 % Monocytes % (Manual) 5 % Myelocytes % 1 % Reactive Lymphocytes 1 % Anisocytosis SLIGHT Macrocytosis SLIGHT Pearl Cells SLIGHT D-Dimer 0.78 H 0.00-0.49 UG/ML Sodium Level 138 135-145 MMOL/L Potassium Level 3.8 3.6-5.0 MMOL/L Chloride Level 104 98-107 MMOL/L Carbon Dioxide Level 22 21-32 MMOL/L Anion Gap 12 5-14 MMOL/L Blood Urea Nitrogen 10 7-18 MG/DL Creatinine 0.74 0.60-1.30 MG/DL Estimat Glomerular Filtration Rate 77 BUN/Creatinine Ratio 14 Glucose Level 72 70-105 MG/DL Calcium Level 8.8 8.5-10.1 MG/DL Corrected Calcium 9.6 8.5-10.1 MG/DL Total Bilirubin 0.4 0.1-1.0 MG/DL Aspartate Amino Transf (AST/SGOT) 9 5-34 U/L Alanine Aminotransferase (ALT/SGPT) 10 0-55 U/L Alkaline Phosphatase 85 40-136 U/L C-Reactive Protein High Sensitivity 7.59 H 0.00-0.50 MG/DL Total Protein 5.8 L 6.4-8.2 GM/DL Albumin 3.0 L 3.2-4.5 GM/DL Procalcitonin 0.12 H <0.10 NG/ML Test 06/25/21 13:20 Range/Units Urine Color YELLOW Urine Clarity CLEAR Urine pH 6.0 5-9 Urine Specific [place] 1.020 1.016-1.022 Urine Protein NEGATIVE NEGATIVE Urine Glucose (UA) NEGATIVE NEGATIVE Urine Ketones 1+ H NEGATIVE Urine Nitrite NEGATIVE NEGATIVE Urine Bilirubin NEGATIVE NEGATIVE Urine Urobilinogen 0.2 < = 1.0 MG/DL Urine Leukocyte Esterase NEGATIVE NEGATIVE Urine RBC (Auto) TRACE-L NEGATIVE Urine RBC 2-5 H /HPF Urine WBC 2-5 /HPF Urine Squamous Epithelial Cells NONE /HPF Urine Crystals NONE /LPF Urine Bacteria TRACE /HPF Urine Casts NONE /LPF Urine Mucus NEGATIVE /LPF Urine Yeast MODERATE H /HPF Urine Culture Indicated YES My Orders Orders - GELY CAMERON Arterial Blood Gas (06/25/21 09:46) Blood Culture (06/25/21 09:46) Cbc With Automated Diff (06/25/21 09:46) Comprehensive Metabolic Panel (06/25/21 09:46) Hs C Reactive Protein (06/25/21 09:46) Procalcitonin (Pct) (06/25/21 09:46) Fibrin Degradation Products (06/25/21 09:46) Covid 19 Inhouse Test (06/25/21 09:46) Influenza A And B By Pcr (06/25/21 09:46) Isolation Central Supply Req (06/25/21 09:46) Chest 1 View, Ap/Pa Only (06/25/21 09:46) Ct Head Wo (06/25/21 09:46) Ed Iv/Invasive Line Start (06/25/21 10:07) Ns Iv 1000 Ml (Sodium Chloride 0.9%) (06/25/21 10:15) Ua Culture If Indicated (06/25/21 10:07) Fentanyl Inj (Sublimaze Injection) (06/25/21 11:15) Fentanyl Inj (Sublimaze Injection) (06/25/21 11:05) Fentanyl Inj (Sublimaze Injection) (06/25/21 11:45) Manual Differential (06/25/21 11:10) Fentanyl Inj (Sublimaze Injection) (06/25/21 11:34) Ct Abdomen/Pelvis W (06/25/21 12:04) Iohexol Injection (Omnipaque 350 Mg/Ml 1 (06/25/21 12:45) Received Contrast (Hold Metformin- Contr (06/25/21 12:45) Straight Cath For Spec.-Adult (06/25/21 13:27) Urine Culture (06/25/21 13:20) Fluconazole Tablet (Ed Only) (Diflucan T (06/25/21 13:45) Medications Given in ED Current Medications Medications Dose Ordered Sig/Chai Route Start Time Stop Time Status Last Admin Dose Admin Fentanyl Citrate 25 mcg ONCE ONCE IVP 06/25/21 11:45 06/25/21 11:46 DC 06/25/21 11:41 25 MCG Fentanyl Citrate 50 mcg ONCE ONCE IVP 06/25/21 11:15 06/25/21 11:16 DC 06/25/21 11:12 50 MCG Fluconazole 150 mg ONCE ONCE PO 06/25/21 13:45 06/25/21 13:49 DC 06/25/21 14:25 150 MG Iohexol 100 ml ONCE ONCE IV 06/25/21 12:45 06/25/21 12:46 DC 06/25/21 12:33 65 ML Vital Signs/I&O 06/25/21 09:28 Temp 36.7 Pulse 80 Resp 18 B/P (MAP) 113/63 (80) Pulse Ox 100 O2 Delivery Nasal Cannula O2 Flow Rate 2.00 Capillary Refill : Progress Note #1: Time: 10:05 Progress Note Patient's altered but staff who seen her before and states that this is her baseline. Patient seems to be debilitated from her back pain constipated either from her opiates and Imodium or from decreased intake or some combination of the 2. Plan to give her some fluids check some urine check some labs get a chest x- ray and a CT of her abdomen and pelvis and she is complaining of abdominal pain. If everything looks okay then she definitely would benefit from some [facility] Progress Note #2: Time: 14:06 Progress Note counseling services manager is still working on placement and outpatient rehab and she thinks she can get it done today so we will let the patient remain in the ER for a little longer. She is comfortable and not needing anything else at this time. Progress Note #3: Time: 14:29 Progress Note Patient has a bed at [facility] for rehab. Sent her over and have her follow-up with primary care. The patient has some gas seen on CT and her urinary bladder which is felt to be residual from her recent UTI and based on her urine and lab work is not an active UTI. Diagnostic Imaging Diagonstic Imaging: Xray Plain Films/CT/US/NM/MRI: chest Comments [facility], [place] NAME: AYO CHÁVEZ [facility] REC#: [id number] PT STATUS: REG ER : 1945 PHYSICIAN: GELY CAMERON MD ADMIT DATE: 06/25/21/ER Draft Date of Exam:06/25/21 CHEST 1 VIEW, AP/PA ONLY EXAMINATION: Chest radiograph, portable AP view. DATE: 06/25/2021 11:55 AM INDICATION: 76-year-old female, chest pain. COMPARISON: June 16, 2021. FINDINGS: There is cervical spine hardware. There is a normal variant azygous lobe. Heart size and mediastinal contours are unchanged. There are chronic appearing rib deformities bilaterally. There is a gradient of attenuation overlying the right lung base. There are streaky opacities in the left medial lung base. There is mild improved aeration of the right lung base compared to prior study. IMPRESSION: 1. Persistent nonspecific right greater than left bibasilar airspace consolidation with improved aeration of the right lung base since June 16, 2021. Dictated on workstation # [id number] Dict: 06/25/21 1156 Trans: 06/25/[address] [place] [address] [id number] Interpreted by: BAM KEYES MD Electronically signed by: Reviewed: Reviewed by Me Diagonstic Imaging: CT Plain Films/CT/US/NM/MRI: head Comments [facility], [place] NAME: AYO CHÁVEZ [facility] REC#: [id number] PT STATUS: REG ER : 1945 PHYSICIAN: GELY CAMERON MD ADMIT DATE: 06/25/21/ER Signed Date of Exam:06/25/21 CT HEAD WO PROCEDURE: CT head without contrast. TECHNIQUE: Multiple contiguous axial images were obtained through the brain without the use of intravenous contrast. Auto Exposure Controls were utilized during the CT exam to meet ALARA standards for radiation dose reduction. INDICATION: Altered mental status and weakness COMPARISON: 06/13/2021 CT HEAD: CT images of the head were obtained. FINDINGS: Ventricles and sulci are within normal limits for size. There is no intracranial hemorrhage identified. There is no abnormal mass effect or shift of midline structures. IMPRESSION: Unremarkable CT of the head. Dictated by: Dictated on workstation # [id number] Dict: 06/25/21 1152 Trans: 06/25/21 1153 [id number] Interpreted by: KENYA SUAZO MD Electronically signed by: KENYA SUAZO MD 06/25/21 115 Reviewed: Reviewed by Me Diagonstic Imaging: CT Plain Films/CT/US/NM/MRI: abdomen, pelvis Comments [facility], [place] NAME: NAWAF CHÁVEZRA [place] [facility] REC#: [id number] PT STATUS: REG ER : 1945 PHYSICIAN: GELY CAMERON MD ADMIT DATE: 06/25/21/ER Signed Date of Exam:06/25/21 CT ABDOMEN/PELVIS W PROCEDURE: CT abdomen and pelvis with contrast. TECHNIQUE: Multiple contiguous axial images were obtained through the abdomen and pelvis after administration of intravenous contrast. Auto Exposure Controls were utilized during the CT exam to meet ALARA standards for radiation dose reduction. All CT scans use one or more of the following dose optimizing techniques: Automated exposure control, MA and/or KvP adjustment based on patient size and exam type or iterative reconstruction. INDICATION: Low back pain COMPARISON: Comparison is made with a CT from 04/06/2021. FINDINGS: The lung bases are clear. There are liver cysts present. No acute abnormality of the gallbladder is seen. The bile ducts are not dilated. The spleen, pancreas, and adrenals are normal. There is a cyst on the right kidney. No acute abnormality of either kidney is seen. The ureters are normal. The bladder is mildly distended with no lesion identified. There is some air in the bladder, which could be due to catheterization. No air in the bladder wall is seen. There is no adnexal mass. No acute bowel abnormality is seen. There is no ascites. There is no adenopathy. There is no acute bony abnormality. IMPRESSION: The urinary bladder is distended which has some air in the lumen, but no wall thickening or air in the gallbladder wall is seen. No other acute abnormality is evident. Dictated by: Dictated on workstation # [id number] Dict: 06/25/21 1235 Trans: 06/25/21 1248 [id number] Interpreted by: DENNIS CARBAJAL MD Electronically signed by: DENNIS CARBAJAL MD 06/25/21 1248 Reviewed: Reviewed by Me Departure Impression Primary Impression: Physical debility Disposition: SNF Condition: Stable Departure-Patient Inst. Decision time for Depature: 14:06 Referrals: TIA DANIEL MD (PCP/Family) Primary Care Physician Patient Instructions: Generalized Weakness Add. Discharge Instructions: Follow-up with your primary care doctor in the next 2 to 4 weeks. Work on rehab at the [facility]. Scripts Alprazolam (Alprazolam) 0.5 Mg Tablet 0.5 MG PO BID PRN for ANXIETY, #28 TAB 0 Refills Prov: GELY CAMERON 06/25/21 Hydrocodone/Acetaminophen (Hydrocodone-Acetamin 10-325 mg) 1 Each Tablet 1 EACH PO QID PRN for PAIN-MODERATE (5-7), #56 TAB 0 Refills Prov: GELY CAMERON 06/25/21 GELY CAMERON Jun 25, 2021 10:01
[2021-06-25 10:09] LABS: ABG BASE EXCESS -0.7 MMOL/L (-2.5-2.5); ABG OXYGEN SATURATION 99 % (94-100); ABG PCO2 40 MMHG (35-45); ABG PH 7.39 (7.37-7.43); ABG PO2 136 MMHG (79-93); ABG TCO2 24.8 MMOL/L (21.0-31.0); ALLENS TEST YES-POS; INSPIRED O2 2L; PATIENT TEMP 37; VENTILATOR NO
[2021-06-25] MEDS ORDERED: NS IV 1000 ML 1,000 ML IV SCH (10:15)
[2021-06-25] MEDS ORDERED: fentaNYL INJ 100 MCG/2 ML AMP ONE ×2 (11:05→11:34)
[2021-06-25] MEDS ORDERED: fentaNYL INJ 100 MCG/2 ML AMP IVP ONE ×2 (11:15→11:45)
[2021-06-25 11:33] LABS: BASOPHILS # (AUTO) 0.1 10^3/uL (0.0-0.1); BASOPHILS % (AUTO) 0 % (0-10); EOSINOPHILS # (AUTO) 0.5 10^3/uL (0.0-0.3); EOSINOPHILS % (AUTO) 3 % (0-10); HEMATOCRIT 39 % (35-52); HEMOGLOBIN 11.8 g/dL (11.5-16.0); LYMPHOCYTES # (AUTO) 2.2 10^3/uL (1.0-4.0); LYMPHOCYTES % (AUTO) 14 % (12-44); MEAN CORPUSCULAR HEMOGLOBIN 31 pg (25-34); MEAN CORPUSCULAR HGB CONC 30 g/dL (32-36); MEAN CORPUSCULAR VOLUME 103 fL (80-99); MEAN PLATELET VOLUME 8.9 fL (9.0-12.2); MONOCYTES # (AUTO) 1.3 10^3/uL (0.0-1.0); MONOCYTES % (AUTO) 8 % (0-12); NEUTROPHILS # (AUTO) 10.9 10^3/uL (1.8-7.8); NEUTROPHILS % (AUTO) 70 % (42-75); PLATELET COUNT 524 10^3/uL (130-400); WHITE BLOOD COUNT 15.5 10^3/uL (4.3-11.0)
[2021-06-25 11:39] LABS: POTASSIUM 3.8 MMOL/L (3.6-5.0)
[2021-06-25 11:40] LABS: CALCIUM 8.8 MG/DL (8.5-10.1)
[2021-06-25 11:41] LABS: TOTAL PROTEIN 5.8 GM/DL (6.4-8.2)
[2021-06-25 11:43] LABS: BILIRUBIN,TOTAL 0.4 MG/DL (0.1-1.0)
[2021-06-25 11:45] LABS: CREATININE SERUM 0.74 MG/DL (0.60-1.30)
--- NOTE | 2021-06-25 11:55 | Diagnostic Imaging Report ---
PROCEDURE: CT head without contrast. TECHNIQUE: Multiple contiguous axial images were obtained through the brain without the use of intravenous contrast. Auto Exposure Controls were utilized during the CT exam to meet ALARA standards for radiation dose reduction. INDICATION: Altered mental status and weakness COMPARISON: 06/13/2021 CT HEAD: CT images of the head were obtained. FINDINGS: Ventricles and sulci are within normal limits for size. There is no intracranial hemorrhage identified. There is no abnormal mass effect or shift of midline structures. IMPRESSION: Unremarkable CT of the head. Dictated by: Dictated on workstation # [id number]
[2021-06-25 11:57] LABS: NEUTROPHILS % (MANUAL) 80 %
[2021-06-25 11:58] LABS: ANISOCYTOSIS SLIGHT; BURR CELLS SLIGHT; LYMPHOCYTES % (MANUAL) 13 %; MONOCYTES % (MANUAL) 5 %; MYELOCYTES % 1 %; REACTIVE LYMPHOCYTES 1 %
--- NOTE | 2021-06-25 12:01 | Diagnostic Imaging Report ---
EXAMINATION: Chest radiograph, portable AP view. DATE: 06/25/2021 11:55 AM INDICATION: 76-year-old female, chest pain. COMPARISON: June 16, 2021. FINDINGS: There is cervical spine hardware. There is a normal variant azygous lobe. Heart size and mediastinal contours are unchanged. There are chronic appearing rib deformities bilaterally. There is a gradient of attenuation overlying the right lung base. There are streaky opacities in the left medial lung base. There is mild improved aeration of the right lung base compared to prior study. IMPRESSION: 1. Persistent nonspecific right greater than left bibasilar airspace consolidation with improved aeration of the right lung base since June 16, 2021. Dictated by: Dictated on workstation # [id number]
--- NOTE | 2021-06-25 12:40 | Diagnostic Imaging Report ---
PROCEDURE: CT abdomen and pelvis with contrast. TECHNIQUE: Multiple contiguous axial images were obtained through the abdomen and pelvis after administration of intravenous contrast. Auto Exposure Controls were utilized during the CT exam to meet ALARA standards for radiation dose reduction. All CT scans use one or more of the following dose optimizing techniques: Automated exposure control, MA and/or KvP adjustment based on patient size and exam type or iterative reconstruction. INDICATION: Low back pain COMPARISON: Comparison is made with a CT from 04/06/2021. FINDINGS: The lung bases are clear. There are liver cysts present. No acute abnormality of the gallbladder is seen. The bile ducts are not dilated. The spleen, pancreas, and adrenals are normal. There is a cyst on the right kidney. No acute abnormality of either kidney is seen. The ureters are normal. The bladder is mildly distended with no lesion identified. There is some air in the bladder, which could be due to catheterization. No air in the bladder wall is seen. There is no adnexal mass. No acute bowel abnormality is seen. There is no ascites. There is no adenopathy. There is no acute bony abnormality. IMPRESSION: The urinary bladder is distended which has some air in the lumen, but no wall thickening or air in the gallbladder wall is seen. No other acute abnormality is evident. Dictated by: Dictated on workstation # [id number]
[2021-06-25] MEDS ORDERED: HOLD METFORMIN - RECEIVED CONTRAST 20 ML VIAL IV SCH (12:45)
[2021-06-25] MEDS ORDERED: IOHEXOL 350 MG/ML 100 ML (OMNIPAQUE 350) VIAL IV ONE (12:45)
[2021-06-25 13:33] LABS: CLARITY,URINE CLEAR; COLOR,URINE YELLOW; GLUCOSE, URINE (UA) NEGATIVE (NEGATIVE); KETONES,URINE 1+ (NEGATIVE); LEUKOCYTE ESTERASE ,URINE NEGATIVE (NEGATIVE); NITRITE,URINE NEGATIVE (NEGATIVE); PROTEIN,URINE NEGATIVE (NEGATIVE)
[2021-06-25 13:43] LABS: BACTERIA,URINE TRACE /HPF; BILIRUBIN,URINE NEGATIVE (NEGATIVE); YEAST,URINE MODERATE /HPF
[2021-06-25] MEDS ORDERED: FLUCONAZOLE 150 MG TABLET (ED ONLY) PO ONE (13:45)
[2021-06-25] MEDS ORDERED: ALPR0.5T7 PO (14:27)
[2021-06-25] MEDS ORDERED: HYDR-3820 PO (14:27)
[2021-06-25 14:59] VITALS: BP 137/65
== END 2021-06-25 14:59 ==
LOC: EDUNIT# 09:33 → ER 09:36
DX: R53.81 Other malaise (principal); J44.9 Chronic obstructive pulmonary disease, unspecified; I10 Essential (primary) hypertension; F41.9 Anxiety disorder, unspecified; G89.29 Other chronic pain; M54.9 Dorsalgia, unspecified; F17.210 Nicotine dependence, cigarettes, uncomplicated; Z79.01 Long term (current) use of anticoagulants; Z79.82 Long term (current) use of aspirin; Z79.899 Other long term (current) drug therapy
CPT/HCPCS: 36415; 51701; 51702; 70450; 71045; 74177; 80053; 81000; 82805; 84145; 85007; 85027; 85379; 86141; 87040; 87088; 87636; 96361; 96374

== ENCOUNTER 2021-06-29 10:28 | Emergency (ER) | payer MEDICARE ==
[~2021-06-29] VITALS: Ht 160 cm; Wt 53.5 kg
[2021-06-29 11:21] LABS: BASOPHILS # (AUTO) 0.1 10^3/uL (0.0-0.1); BASOPHILS % (AUTO) 1 % (0-10); EOSINOPHILS # (AUTO) 0.3 10^3/uL (0.0-0.3); EOSINOPHILS % (AUTO) 2 % (0-10); HEMATOCRIT 32 % (35-52); HEMOGLOBIN 10.2 g/dL (11.5-16.0); LYMPHOCYTES # (AUTO) 1.9 10^3/uL (1.0-4.0); LYMPHOCYTES % (AUTO) 15 % (12-44); MEAN CORPUSCULAR HEMOGLOBIN 31 pg (25-34); MEAN CORPUSCULAR HGB CONC 32 g/dL (32-36); MEAN CORPUSCULAR VOLUME 98 fL (80-99); MEAN PLATELET VOLUME 9.2 fL (9.0-12.2); MONOCYTES # (AUTO) 1.2 10^3/uL (0.0-1.0); MONOCYTES % (AUTO) 10 % (0-12); NEUTROPHILS # (AUTO) 8.5 10^3/uL (1.8-7.8); NEUTROPHILS % (AUTO) 70 % (42-75); PLATELET COUNT 533 10^3/uL (130-400); WHITE BLOOD COUNT 12.3 10^3/uL (4.3-11.0)
[2021-06-29 11:23] LABS: ALBUMIN 2.9 GM/DL (3.2-4.5); POTASSIUM 3.4 MMOL/L (3.6-5.0)
[2021-06-29] MEDS ORDERED: fentaNYL INJ 100 MCG/2 ML AMP IVP STA (11:23)
[2021-06-29 11:24] LABS: CALCIUM 8.9 MG/DL (8.5-10.1)
[2021-06-29 11:25] LABS: BILIRUBIN,URINE NEGATIVE (NEGATIVE); CLARITY,URINE CLEAR; COLOR,URINE YELLOW; GLUCOSE, URINE (UA) NEGATIVE (NEGATIVE); KETONES,URINE NEGATIVE (NEGATIVE); LEUKOCYTE ESTERASE ,URINE 1+ (NEGATIVE); NITRITE,URINE NEGATIVE (NEGATIVE); PH,URINE 6.5 (5-9); PROTEIN,URINE NEGATIVE (NEGATIVE)
[2021-06-29 11:26] LABS: TOTAL PROTEIN 5.7 GM/DL (6.4-8.2)
[2021-06-29 11:27] LABS: BILIRUBIN,TOTAL 0.6 MG/DL (0.1-1.0)
[2021-06-29 11:29] LABS: CREATININE SERUM 1.23 MG/DL (0.60-1.30)
[2021-06-29] MEDS ORDERED: NS IV 1000 ML 1,000 ML IV SCH (11:30)
--- NOTE | 2021-06-29 11:46 | ED Fall/Injury ---
General Chief Complaint: Trauma-Non Activation Stated Complaint: FALL Nursing Triage Note: PT PRESENTS TO ED VIA EMS FROM [facility] FOR HYPOTENSION, UNWITNESSED FALL AT 0835 TODAY WHERE SHE HIT HER HEAD. PT DENIES LOC OR FAINTING. PT RECIEVED 1 L NS YESTERDAY FOR HYPOTENSION. History of Present Illness Date Seen by Provider: Jun 29, 2021 Time Seen by Provider: 11:00 Initial Comments 76-year-old female presents via EMS after a fall that occurred at 835 this morning. She is a resident at [facility], she was placed there after an ED visit on 06/25/21 for rehab. She reports that she was walking when she lost her balance and fell causing her to hit the back of her head. She has had previous surgery and has retained hardware in her cervical spine. She has chronic neck pain. She reports pain in the parietal region of her head and neck pain. She denies the neck pain being different than baseline for her. She denies any other pain related to the fall. She has no abrasions, ecchymosis or injuries. She states staff reported to her immediately after the fall. There was no loss of consciousness. She denies any nausea, vomiting, or seizure activity. She has been having hypotension, requiring IV infusion of normal saline yesterday. Her initial blood pressure 90/44, she is on Eliquis 5 mg daily for history of atrial fibrillation as well as Cardizem ER 240 mg daily. She is on no other antihypertensives. Staff reports she takes hydrocodone regularly for pain, she had not been given any today. She states her appetite and intake has been minimal. She denies vertigo or tripping on her O2 tubing. She is wearing non-skid socks but they are very big on her and could be a fall hazard. Occurred: this morning Injuries/Pain Location: head, neck Context: lost balance Loss of Consciousness: no loss of consciousness Associated Symptoms (Fall): No Abdominal Pain, No Chest Pain, No Confusion, No Dizziness, No Headache, No Lightheadedness, No Muscle Spasms, No Nausea/Vomiting; Neck Pain (chronic); No Ringing in Ears, No Seizures, No Shortness of Air, No Slurred Speech, No Trouble Walking, No Vision Changes Allergies and Home Medications Allergies Coded Allergies: nitrofurantoin (Verified Allergy, Severe, RASH, 12/10/15) ITCHING AND RASH sulfamethoxazole (Verified Allergy, Severe, RASH, 12/10/15) ITCHING AND RASH trimethoprim (Verified Allergy, Severe, RASH, 12/10/15) ITCHING AND RASH azithromycin (Verified Allergy, Unknown, 08/14/14) cefixime (Verified Allergy, Unknown, 08/14/14) Patient Home Medication List Home Medication List Reviewed: Yes Acetaminophen (Tylenol) 325 Mg Capsule, 325-650 MG PO Q8H PRN for PAIN-MILD (1- 4), (Reported) Entered as Reported by: ZORAN BUTT on 06/14/21 0927 Albuterol Sulfate (Proair Hfa) 1 Puff Puff, 2 PUFF IH Q4H PRN for WHEEZING, (Reported) Entered as Reported by: JULIAN ALVARADO on 11/04/19 1241 Alprazolam (Alprazolam) 0.5 Mg Tablet, 0.5 MG PO BID PRN for ANXIETY Prescribed by: GELY CAMERON on 06/25/21 1427 Apixaban (Eliquis) 5 Mg Tablet, 5 MG PO BID Prescribed by: JAYCOB FRIEDMAN on 06/19/21 0937 Aspirin (Aspirin) 81 Mg Tab.chew, 81 MG PO DAILY, (Reported) Entered as Reported by: JULIAN ALVARADO on 11/04/19 1235 Budesonide (Rhinocort Allergy) 8.43 Ml [place].pump, 2 SPRAYS NS DAILY, (Reported) Entered as Reported by: EVIN HOLLAND on 04/09/21 1305 Calcium Carbonate (Calcium) 600 Mg Tablet, 1,200 MG PO DAILY, (Reported) Entered as Reported by: JULIAN ALVARADO on 11/04/19 1241 Cetirizine HCl (Zyrtec) 10 Mg Tablet, 10 MG PO DAILY, (Reported) Entered as Reported by: JULIAN ALVARADO on 11/04/19 1241 Chlorhexidine Gluconate (Chlorhexidine Gluconate) 473 Ml Mouthwash, 15 ML PO BID, (Reported) Entered as Reported by: EVIN HOLLAND on 04/09/21 1305 Cholecalciferol (Vitamin D3) (Vitamin D3) 50 Mcg Capsule, 50 MCG PO DAILY, (Reported) Entered as Reported by: JULIAN ALVARADO on 11/04/19 1241 Ciprofloxacin HCl (Ciprofloxacin HCl) 500 Mg Tablet, 500 MG PO BID Prescribed by: JAYCOB FRIEDMAN on 06/19/21 0849 Citalopram Hydrobromide (Citalopram HBr) 20 Mg Tablet, 20 MG PO HS, (Reported) Entered as Reported by: EVIN HOLLAND on 04/09/21 1305 Diltiazem HCl (Diltiazem 24Hr ER) 240 Mg Cap.er.24h, 240 MG PO DAILY Prescribed by: JAYCOB FRIEDMAN on 06/19/21 0937 Diltiazem HCl (Diltiazem ER) 120 Mg Capsule.er, 120 MG PO DAILY Prescribed by: SLIME OLSON on 06/29/21 1303 Dronedarone HCl (Multaq) 400 Mg Tablet, 400 MG PO BID Prescribed by: JAYCOB FRIEDMAN on 06/19/21 0937 Ergocalciferol (Vitamin D2) (Vitamin D2) 1,250 Mcg Capsule, 1,250 MCG PO FRIDAY, (Reported) Entered as Reported by: EVIN HOLLAND on 04/11/21 1244 Formoterol Fumarate (Perforomist) 20 Mcg/2 Ml Vial.neb, 2 ML NEB BID, (Reported) Entered as Reported by: JULIAN ALVARADO on 11/04/19 1241 Furosemide (Furosemide) 40 Mg Tablet, 40 MG PO DAILY, (Reported) Entered as Reported by: ZORAN BUTT on 06/14/21 0927 Hydrocodone/Acetaminophen (Hydrocodone-Acetamin 10-325 mg) 1 Each Tablet, 1 EACH PO QID PRN for PAIN-MODERATE (5-7) Prescribed by: GELY CAMERON on 06/25/21 1427 Ipratropium [place] (Ipratropium [place]) 0.2 Mg/1 Ml Solution, 0.2 MG IH TID PRN for SHORTNESS OF BREATH, (Reported) Entered as Reported by: JULIAN ALVARADO on 11/04/19 1241 Levofloxacin (Levofloxacin) 250 Mg Tablet, 250 MG PO DAILY Prescribed by: SLIME OLSON on 06/29/21 1303 Pedi Mv No.79/Ferrous Fumarate (Flintstones with Iron Tab Chew) 18 Mg Tab.chew, 18 MG PO DAILY, (Reported) Entered as Reported by: EVIN HOLLAND on 04/09/21 1305 Potassium Chloride (K-Tab ER) 10 Meq Tablet.er, 10 MEQ PO DAILY, (Reported) Entered as Reported by: ZORAN BUTT on 06/14/21 0927 Promethazine HCl/Codeine (Promethazine-Codeine Solution) 473 Ml Syrup, 5 ML PO HS, (Reported) Entered as Reported by: EVIN HOLLAND on 04/09/21 1305 Spironolactone (Spironolactone) 25 Mg Tablet, 25 MG PO DAILY, (Reported) Entered as Reported by: JULIAN ALVARADO on 11/04/19 1241 Tamsulosin HCl (Flomax) 0.4 Mg Cap, 0.4 MG PO HS, (Reported) Entered as Reported by: JULIAN ALVARADO on 11/04/19 1241 Thyroid,Pork ([place] Thyroid) 60 Mg Tablet, 90 MG PO DAILY, (Reported) Entered as Reported by: ZORAN BUTT on 04/12/21 1029 Review of Systems Review of Systems Constitutional: no symptoms reported, see HPI Musculoskeletal: see HPI, neck pain, other (left parietal tenderness, no bleeding or abrasion) All Other Systems Reviewed Negative Unless Noted: Yes Past Qvdnwqy-Qnghjh-Eehlix Hx Patient Social History Tobacco Use?: Yes Substance use?: No Alcohol Use?: No Pt feels they are or have been: No Immunizations Up To Date PED Vaccines UTD: No First/Initial COVID19 Vaccinat: DECEMBER 2020 Second COVID19 Vaccination Aron: JANUARY 2021 COVID19 Vaccine Hog Sticker: ANNA Seasonal Allergies Seasonal Allergies: Yes Past Medical History Surgery/Hospitalization HX: PMH: UTI, COPD, AFIB, CHF, ANEMIA, HYPOTHYROIDISM, CHRONIC KIDNEY DISEASE, ANXIETY, DEPRESSION, GERD, GASTRIL ULCER, DIVERTICULOSIS Surgeries: Yes (cervical spine, teeth removal) Breast, Orthopedic, Thyroidectomy Respiratory: Yes Pneumonia, COPD Cardiac: No (lower extremity edema) Hypertension Neurological: Yes (TREMORS) Headaches /Migraines Reproductive Disorders: No Female Reproductive Disorders: Denies Genitourinary: Yes (retention) Bladder Infection Gastrointestinal: No Musculoskeletal: Yes (CERVICAL SPINE SX) Osteoporosis, Chronic Back Pain Endocrine: Yes (BENIGN THYROID TUMOR) Hypothyroidsim HEENT: No Cancer: No Psychosocial: Yes Anxiety Integumentary: No Blood Disorders: No Family Medical History Reviewed Nursing Family Hx Bladder problems G8 SISTER FH: lung cancer 19 FATHER Thyroid disease 19 MOTHER Cancer Physical Exam Vital Signs Vital Signs - First Documented 06/29/21 10:45 Temp 36.0 Pulse 89 Resp 18 B/P (MAP) 90/44 (59) Pulse Ox 96 O2 Delivery Nasal Cannula O2 Flow Rate 2.50 Capillary Refill : Less Than 3 Seconds Height, Weight, BMI Height: 5'3.00" Weight: 110lbs. 0.0oz. [id number]; 20.00 BMI Method:Stated General Appearance: WD/WN, no apparent distress HEENT: PERRL/EOMI, normal ENT inspection, TMs normal, pharynx normal Neck: supple, normal inspection, limited range of motion (trace limit secondary to previous hardware); No tender lateral, No tender midline Cardiovascular: normal peripheral pulses, regular rate, rhythm, no edema Respiratory: chest non-tender, lungs clear, normal breath sounds Gastrointestinal: normal bowel sounds, non tender, soft Extremities: normal range of motion, non-tender, normal inspection, normal capillary refill Neurologic/Psychiatric: no motor/sensory deficits, alert, normal mood/affect, oriented x 3 Skin: other (stage one ulcer to sacram, with padded dressing in place. No drainage. Mild tenderness. ) [place] Coma Score Best Eye Response: (4) Open Spontaneously Best Verbal Response: (5) Oriented Best Motor Response: (6) Obeys Commands [place] Total: 15 Progress/Results/Core Measures Results/Orders Lab Results Laboratory Tests Test 06/29/21 10:42 06/29/21 10:57 Range/Units White Blood Count 12.3 H 4.3-11.0 10^3/uL Red Blood Count 3.32 L 3.80-5.11 10^6/uL Hemoglobin 10.2 L 11.5-16.0 g/dL Hematocrit 32 L 35-52 % Mean Corpuscular Volume 98 80-99 fL Mean Corpuscular Hemoglobin 31 25-34 pg Mean Corpuscular Hemoglobin Concent 32 32-36 g/dL Red Cell Distribution Width 15.9 H 10.0-14.5 % Platelet Count 533 H 130-400 10^3/uL Mean Platelet Volume 9.2 9.0-12.2 fL Immature Granulocyte % (Auto) 3 % Neutrophils (%) (Auto) 70 42-75 % Lymphocytes (%) (Auto) 15 12-44 % Monocytes (%) (Auto) 10 0-12 % Eosinophils (%) (Auto) 2 0-10 % Basophils (%) (Auto) 1 0-10 % Neutrophils # (Auto) 8.5 H 1.8-7.8 10^3/uL Lymphocytes # (Auto) 1.9 1.0-4.0 10^3/uL Monocytes # (Auto) 1.2 H 0.0-1.0 10^3/uL Eosinophils # (Auto) 0.3 0.0-0.3 10^3/uL Basophils # (Auto) 0.1 0.0-0.1 10^3/uL Immature Granulocyte # (Auto) 0.3 H 0.0-0.1 10^3/uL Sodium Level 134 L 135-145 MMOL/L Potassium Level 3.4 L 3.6-5.0 MMOL/L Chloride Level 101 98-107 MMOL/L Carbon Dioxide Level 21 21-32 MMOL/L Anion Gap 12 5-14 MMOL/L Blood Urea Nitrogen 8 7-18 MG/DL Creatinine 1.23 0.60-1.30 MG/DL Estimat Glomerular Filtration Rate 43 BUN/Creatinine Ratio 7 Glucose Level 76 70-105 MG/DL Calcium Level 8.9 8.5-10.1 MG/DL Corrected Calcium 9.8 8.5-10.1 MG/DL Total Bilirubin 0.6 0.1-1.0 MG/DL Aspartate Amino Transf (AST/SGOT) 23 5-34 U/L Alanine Aminotransferase (ALT/SGPT) 12 0-55 U/L Alkaline Phosphatase 77 40-136 U/L Total Protein 5.7 L 6.4-8.2 GM/DL Albumin 2.9 L 3.2-4.5 GM/DL Urine Color YELLOW Urine Clarity CLEAR Urine pH 6.5 5-9 Urine Specific [place] 1.010 L 1.016-1.022 Urine Protein NEGATIVE NEGATIVE Urine Glucose (UA) NEGATIVE NEGATIVE Urine Ketones NEGATIVE NEGATIVE Urine Nitrite NEGATIVE NEGATIVE Urine Bilirubin NEGATIVE NEGATIVE Urine Urobilinogen 0.2 < = 1.0 MG/DL Urine Leukocyte Esterase 1+ H NEGATIVE Urine RBC (Auto) 3+ H NEGATIVE Urine RBC 2-5 H /HPF Urine WBC 25-50 H /HPF Urine Squamous Epithelial Cells 2-5 /HPF Urine Crystals NONE /LPF Urine Bacteria TRACE /HPF Urine Casts NONE /LPF Urine Mucus NEGATIVE /LPF Urine Culture Indicated YES My Orders Orders - SLIME OLSON Cbc With Automated Diff (06/29/21 11:13) Comprehensive Metabolic Panel (06/29/21 11:13) Ua Culture If Indicated (06/29/21 11:13) Ed Iv/Invasive Line Start (06/29/21 11:23) Ns Iv 1000 Ml (Sodium Chloride 0.9%) (06/29/21 11:30) Fentanyl Inj (Sublimaze Injection) (06/29/21 11:23) Ct Head/Cervical Spine Wo (06/29/21 11:24) Urine Culture (06/29/21 10:57) Levofloxacin Tablet (Levaquin Tablet) (06/29/21 12:47) Vital Signs/I&O 06/29/21 06/29/21 10:45 12:03 Temp 36.0 36.0 Pulse 89 89 Resp 18 18 B/P (MAP) 90/44 (59) 90/44 (59) Pulse Ox 96 96 O2 Delivery Nasal Cannula Nasal Cannula O2 Flow Rate 2.50 Blood Pressure Mean: 59 Progress Progress Note : Time: 11:00 Progress Note Patient seen and evaluated, reviewed medication list from [facility]. We will check labs and CT of head and neck. Will give normal saline 1 L per IV. Second B/P 102/60. Will continue to monitor. Will give fentanyl 25 mcg for pain. 1200 patient reports improvement in pain, awaiting CT. UTI present, will give Levaquin 500 mg orally and then start 250 mg daily at long-term care tomorrow. 1240 CT shows no acute changes. Spoke with Dr. Saleh about blood pressure. Recommended holding the diltiazem through the weekend and then starting 120 mg on 07/03/21. Discharge instructions and return precautions reviewed with the patient. Diagnostic Imaging Diagonstic Imaging: CT Plain Films/CT/US/NM/MRI: c-spine, head Comments NAME: AYO CHÁVEZ Yoshi Panviva REC#: [id number] PT STATUS: REG ER : 1945 PHYSICIAN: SLIME OLSON ADMIT DATE: 06/29/21/ER Draft Date of Exam:06/29/21 CT HEAD/CERVICAL SPINE WO PROCEDURE: CT head and CT cervical spine without contrast. TECHNIQUE: Multiple contiguous axial images were obtained through the brain and cervical spine without the use of intravenous contrast. Sagittal and coronal reformations through the cervical spine were then performed. Auto Exposure Controls were utilized during the CT exam to meet ALARA standards for radiation dose reduction. INDICATION: Fall with head and neck injury. Correlation is made with recent head CT from 06/25/2021. CT HEAD: The ventricular size and sulcal pattern are stable. There is no sulcal effacement or midline shift. No acute intra-axial or extra-axial hemorrhage is detected. Cisterns are patent. Visualized paranasal sinuses are clear apart from opacification of several posterior ethmoid air cells and some thickening of the sphenoid sinus. IMPRESSION: No acute intracranial process is detected. CT CERVICAL SPINE: Postoperative changes of anterior cervical discectomy and fusion C5-C7 is noted. The hardware is intact without fracture or loosening. Vertebral body heights are maintained. There is degenerative disc disease C3-C4 and C4-C5 levels with disc space narrowing and marginal spurring. No fractures are identified. Prevertebral tissues are within normal limits. Odontoid is intact. IMPRESSION: Cervical spondylosis and postsurgical changes. No acute bony abnormality is identified. Dictated on workstation # [id number] Dict: 06/29/21 1214 Trans: 06/29/21 1224 CV [id number] Interpreted by: LADI MATHIS MD Electronically signed by: Reviewed: Reviewed by Me Departure Impression Primary Impression: Fall Qualified Codes: W19.XXXA - Unspecified fall, initial encounter Additional Impressions: UTI (lower urinary tract infection) Hypotension Qualified Codes: I95.9 - Hypotension, unspecified Disposition: 01 HOME, SELF-CARE Condition: Stable Departure-Patient Inst. Decision time for Depature: 12:40 Referrals: TIA DANIEL MD (PCP/Family) Primary Care Physician MERVAT SERNA MD Patient Instructions: Orthostatic Hypotension (DC), Preventing Falls, Urinary Tract Infection, Adult (DC) Add. Discharge Instructions: Stop Diltiazem, resume 07/02/21 at Diltiazem 120 mg ER once daily (hold if B/P lower than 100/60). Leviquan 250 mg orally, daily for 5 days, start 06/30/21. Increase water intake, 8 ounces every 2 hours while awake. Continue home medications as prescribed by PCP. Change positions every 2 hours to keep pressure off of sacrum. Continue wound care to sacrum. Assure no skid socks fit the patient, if they are too big, it is a fall hazard. Follow-up with primary care provider if symptoms are not improving. Return to the emergency department for new problems. All discharge instructions reviewed with patient and/or family. Voiced understanding. Scripts Diltiazem HCl (Diltiazem ER) 120 Mg Capsule.er 120 MG PO DAILY, #30 CAP 1 Refill Prov: SLIME OLSON 06/29/21 Levofloxacin (Levofloxacin) 250 Mg Tablet 250 MG PO DAILY, #5 TAB 0 Refills Prov: SLIME OLSON 06/29/21 Copy Copies To 1: MERVAT SERNA MD, AMY ARNP Jun 29, 2021 11:46
[2021-06-29 11:56] LABS: WBC,URINE 25-50 /HPF
[2021-06-29 11:57] LABS: BACTERIA,URINE TRACE /HPF
--- NOTE | 2021-06-29 12:24 | Diagnostic Imaging Report ---
PROCEDURE: CT head and CT cervical spine without contrast. TECHNIQUE: Multiple contiguous axial images were obtained through the brain and cervical spine without the use of intravenous contrast. Sagittal and coronal reformations through the cervical spine were then performed. Auto Exposure Controls were utilized during the CT exam to meet ALARA standards for radiation dose reduction. INDICATION: Fall with head and neck injury. Correlation is made with recent head CT from 06/25/2021. CT HEAD: The ventricular size and sulcal pattern are stable. There is no sulcal effacement or midline shift. No acute intra-axial or extra-axial hemorrhage is detected. Cisterns are patent. Visualized paranasal sinuses are clear apart from opacification of several posterior ethmoid air cells and some thickening of the sphenoid sinus. IMPRESSION: No acute intracranial process is detected. CT CERVICAL SPINE: Postoperative changes of anterior cervical discectomy and fusion C5-C7 is noted. The hardware is intact without fracture or loosening. Vertebral body heights are maintained. There is degenerative disc disease C3-C4 and C4-C5 levels with disc space narrowing and marginal spurring. No fractures are identified. Prevertebral tissues are within normal limits. Odontoid is intact. IMPRESSION: Cervical spondylosis and postsurgical changes. No acute bony abnormality is identified. Dictated by: Dictated on workstation # [id number]
[2021-06-29] MEDS ORDERED: LEVO250T46 PO (13:03)
[2021-06-29] MEDS ORDERED: DILT120C85 PO (13:03)
[2021-06-29 14:25] VITALS: BP 97/50
== END 2021-06-29 14:25 | disposition home or self-care (01) ==
LOC: EDUNIT# 10:28 → ER 10:29
DX: N39.0 Urinary tract infection, site not specified (principal); I95.9 Hypotension, unspecified; J44.9 Chronic obstructive pulmonary disease, unspecified; I11.0 Hypertensive heart disease with heart failure; I50.9 Heart failure, unspecified; F41.9 Anxiety disorder, unspecified; F32.9 Major depressive disorder, single episode, unspecified; G89.29 Other chronic pain; M54.9 Dorsalgia, unspecified; I48.91 Unspecified atrial fibrillation; Z79.82 Long term (current) use of aspirin; Z79.01 Long term (current) use of anticoagulants; Z79.899 Other long term (current) drug therapy; Z79.891 Long term (current) use of opiate analgesic
CPT/HCPCS: 36415; 70450; 72125; 80053; 81000; 85025; 87088; 96361; 96374

== ENCOUNTER 2021-09-04 14:37 | Emergency (ER) | payer MEDICARE ==
[~2021-09-04] VITALS: Ht 62 cm; Wt 47.2 kg
[~2021-09-04 14:37] MED LIST changes: +DILT120C85 PO; +LEVO250T46 PO
[2021-09-04] MEDS ORDERED: LACTATED RINGERS 1,000 ML IV ONE ×2 (15:45→17:00)
--- NOTE | 2021-09-04 16:14 | Diagnostic Imaging Report ---
INDICATION: Sepsis. COMPARISON: 06/25/2021. FINDINGS: A single view of the chest demonstrates increasing atelectasis and/or infiltrate in the right base. The left lung is clear. The heart is prominent but stable. There is no pneumothorax. The osseous structures are stable. IMPRESSION: Increasing opacity in the right base. Dictated by: Dictated on workstation # [id number]
[2021-09-04 16:28] LABS: BASOPHILS % (AUTO) 0 % (0-10); EOSINOPHILS # (AUTO) 0.4 10^3/uL (0.0-0.3); EOSINOPHILS % (AUTO) 5 % (0-10); HEMATOCRIT 35 % (35-52); HEMOGLOBIN 10.7 g/dL (11.5-16.0); LYMPHOCYTES # (AUTO) 2.1 10^3/uL (1.0-4.0); LYMPHOCYTES % (AUTO) 25 % (12-44); MEAN CORPUSCULAR HEMOGLOBIN 30 pg (25-34); MEAN CORPUSCULAR HGB CONC 31 g/dL (32-36); MEAN CORPUSCULAR VOLUME 98 fL (80-99); MEAN PLATELET VOLUME 9.6 fL (9.0-12.2); MONOCYTES % (AUTO) 13 % (0-12); NEUTROPHILS # (AUTO) 4.5 10^3/uL (1.8-7.8); NEUTROPHILS % (AUTO) 55 % (42-75); PLATELET COUNT 290 10^3/uL (130-400); WHITE BLOOD COUNT 8.2 10^3/uL (4.3-11.0)
[2021-09-04] MEDS ORDERED: RT-ALBUTEROL/IPRATROPIUM 3 ML (DUONEB) VIAL INH ONE (16:45)
[2021-09-04] MEDS ORDERED: MEROPENEM 500 MG in NS (IVPB) 100 ML IV ONE (16:45)
[2021-09-04 16:48] LABS: ALBUMIN 2.9 GM/DL (3.2-4.5)
[2021-09-04 16:49] LABS: POTASSIUM 3.5 MMOL/L (3.6-5.0); PROTHROMBIN TIME PATIENT 13.6 SEC (12.2-14.7)
[2021-09-04 16:50] LABS: CALCIUM 8.3 MG/DL (8.5-10.1)
[2021-09-04 16:51] LABS: TOTAL PROTEIN 5.6 GM/DL (6.4-8.2)
[2021-09-04 16:53] LABS: BILIRUBIN,TOTAL 0.2 MG/DL (0.1-1.0)
[2021-09-04 16:55] LABS: CREATININE SERUM 1.2 MG/DL (0.60-1.30)
--- NOTE | 2021-09-04 18:05 | ED General ---
General Chief Complaint: Respiratory Problems Stated Complaint: SOB SORE THROAT Nursing Triage Note: Pt arrives via POV from home with c/o increasing SOB. Pt reports hx of COPD, wears 2L O2 at home; states over the last few days she has had to increase her O2 to 4L. Pt reports SOB on exertion. Pt also reports that she is CDIFF+ et is currently on antibiotics for this. Source of Information: Patient Exam Limitations: No Limitations History of Present Illness Date Seen by Provider: Sep 04, 2021 Time Seen by Provider: 14:41 Initial Comments This 76-year-old woman presents to the emergency department with complaints of shortness of breath and sore throat. She has been on a prednisone taper for COPD exacerbation. She is also presently being treated for C. difficile colitis and has significant diarrhea. She is noted to be hypotensive which she believes to be from the diarrhea. She is afebrile but does complain of increased productive cough. She has increased her oxygen flow at home from 2 L to 4 L. She reports her normal systolic blood pressures in the 90s. Allergies and Home Medications Allergies Coded Allergies: nitrofurantoin (Verified Allergy, Severe, RASH, 12/10/15) ITCHING AND RASH sulfamethoxazole (Verified Allergy, Severe, RASH, 12/10/15) ITCHING AND RASH trimethoprim (Verified Allergy, Severe, RASH, 12/10/15) ITCHING AND RASH azithromycin (Verified Allergy, Unknown, 08/14/14) cefixime (Verified Allergy, Unknown, 08/14/14) Patient Home Medication List Home Medication List Reviewed: Yes Acetaminophen (Tylenol) 325 Mg Capsule, 325-650 MG PO Q8H PRN for PAIN-MILD (1- 4), (Reported) Entered as Reported by: ZORAN BUTT on 06/14/21 0992 Albuterol Sulfate (Proair Hfa) 1 Puff Puff, 2 PUFF IH Q4H PRN for WHEEZING, (Reported) Entered as Reported by: JULIAN ALVARADO on 11/04/19 1241 Alprazolam (Alprazolam) 0.5 Mg Tablet, 0.5 MG PO BID PRN for ANXIETY Prescribed by: GELY CAMERON on 06/25/21 1427 Apixaban (Eliquis) 5 Mg Tablet, 5 MG PO BID Prescribed by: JAYCOB FRIEDMAN on 06/19/21 0937 Aspirin (Aspirin) 81 Mg Tab.chew, 81 MG PO DAILY, (Reported) Entered as Reported by: JULIAN ALVARADO on 11/04/19 1235 Budesonide (Rhinocort Allergy) 8.43 Ml [place].pump, 2 SPRAYS NS DAILY, (Reported) Entered as Reported by: EVIN HOLLAND on 04/09/21 1305 Calcium Carbonate (Calcium) 600 Mg Tablet, 1,200 MG PO DAILY, (Reported) Entered as Reported by: JULIAN ALVARADO on 11/04/19 1241 Cetirizine HCl (Zyrtec) 10 Mg Tablet, 10 MG PO DAILY, (Reported) Entered as Reported by: JULIAN ALVARADO on 11/04/19 1241 Chlorhexidine Gluconate (Chlorhexidine Gluconate) 473 Ml Mouthwash, 15 ML PO BID, (Reported) Entered as Reported by: EVIN HOLLAND on 04/09/21 1305 Cholecalciferol (Vitamin D3) (Vitamin D3) 50 Mcg Capsule, 50 MCG PO DAILY, (Reported) Entered as Reported by: JULIAN ALVARADO on 11/04/19 1241 Ciprofloxacin HCl (Ciprofloxacin HCl) 500 Mg Tablet, 500 MG PO BID Prescribed by: JAYCBO FRIEDMAN on 06/19/21 0849 Citalopram Hydrobromide (Citalopram HBr) 20 Mg Tablet, 20 MG PO HS, (Reported) Entered as Reported by: EVIN HOLLAND on 04/09/21 1305 Diltiazem HCl (Diltiazem 24Hr ER) 240 Mg Cap.er.24h, 240 MG PO DAILY Prescribed by: JAYCOB FRIEDMAN on 06/19/21 09 Diltiazem HCl (Diltiazem ER) 120 Mg Capsule.er, 120 MG PO DAILY Prescribed by: SLIME OLSON on 06/29/21 1303 Doxycycline Hyclate (Doxycycline Hyclate) 100 Mg Tablet, 100 MG PO BID Prescribed by: KENDRA GROSS on 09/04/21 1810 Dronedarone HCl (Multaq) 400 Mg Tablet, 400 MG PO BID Prescribed by: JAYCOB FRIEDMAN on 06/19/21 09 Ergocalciferol (Vitamin D2) (Vitamin D2) 1,250 Mcg Capsule, 1,250 MCG PO FRIDAY, (Reported) Entered as Reported by: EVIN HOLLAND on 04/11/21 1244 Fluconazole (Diflucan) 150 Mg Tablet, 150 MG PO UD Prescribed by: KENDRA GROSS on 09/04/211809 Formoterol Fumarate (Perforomist) 20 Mcg/2 Ml Vial.neb, 2 ML NEB BID, (Reported) Entered as Reported by: JULIAN ALVARADO on 11/04/19 1241 Furosemide (Furosemide) 40 Mg Tablet, 40 MG PO DAILY, (Reported) Entered as Reported by: ZORAN BUTT on 06/14/21 09 Hydrocodone/Acetaminophen (Hydrocodone-Acetamin 10-325 mg) 1 Each Tablet, 1 EACH PO QID PRN for PAIN-MODERATE (5-7) Prescribed by: GELY CAMERON on 06/25/21 1427 Ipratropium [place] (Ipratropium [place]) 0.2 Mg/1 Ml Solution, 0.2 MG IH TID PRN for SHORTNESS OF BREATH, (Reported) Entered as Reported by: JULIAN ALVARADO on 11/04/19 124 L.acidoph & Paracasei,B.lactis (Probiotic) 1 Each Capsule, 1 EACH PO TID Prescribed by: KENDRA GROSS on 09/04/211809 Levofloxacin (Levofloxacin) 250 Mg Tablet, 250 MG PO DAILY Prescribed by: SLIME OLSON on 06/29/21 1303 Pedi Mv No.79/Ferrous Fumarate (Flintstones with Iron Tab Chew) 18 Mg Tab.chew, 18 MG PO DAILY, (Reported) Entered as Reported by: EVIN HOLLAND on 04/09/21 1305 Potassium Chloride (K-Tab ER) 10 Meq Tablet.er, 10 MEQ PO DAILY, (Reported) Entered as Reported by: ZORAN BUTT on 06/14/21 09 Promethazine HCl/Codeine (Promethazine-Codeine Solution) 473 Ml Syrup, 5 ML PO HS, (Reported) Entered as Reported by: EVIN HOLLAND on 04/09/21 1305 Spironolactone (Spironolactone) 25 Mg Tablet, 25 MG PO DAILY, (Reported) Entered as Reported by: JULIAN ALVARADO on 11/04/19 1241 Tamsulosin HCl (Flomax) 0.4 Mg Cap, 0.4 MG PO HS, (Reported) Entered as Reported by: JULIAN ALVARADO on 11/04/19 1241 Thyroid,Pork (Mehama Thyroid) 60 Mg Tablet, 90 MG PO DAILY, (Reported) Entered as Reported by: ZORAN BUTT on 04/12/21 1029 Review of Systems Review of Systems Constitutional: no symptoms reported EENTM: no symptoms reported Respiratory: see HPI Cardiovascular: see HPI Gastrointestinal: see HPI Genitourinary: dysuria : No Musculoskeletal: no symptoms reported Skin: no symptoms reported Psychiatric/Neurological: No Symptoms Reported Hematologic/Lymphatic: No Symptoms Reported Past Kgzgbts-Adopmc-Wfteze Hx Patient Social History Tobacco Use?: Yes Tobacco type used: Cigarettes Smoking Status: Light Tobacco Smoker Use of E-Cig and/or Vaping dev: No Substance use?: No Alcohol Use?: No Pt feels they are or have been: No Immunizations Up To Date PED Vaccines UTD: No Influenza Vaccine Up-to-Date: Yes; Up-to-Date First/Initial COVID19 Vaccinat: DECEMBER 2020 Second COVID19 Vaccination Aron: JANUARY 2021 Third COVID19 Vaccination Date: DECEMBER 2020 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 difficile colitis) Musculoskeletal: Yes (CERVICAL SPINE SX) Osteoporosis, Chronic Back Pain Endocrine: Yes (BENIGN THYROID TUMOR) Hypothyroidsim HEENT: No Cancer: No Psychosocial: Yes Anxiety Integumentary: No Blood Disorders: No Family Medical History Bladder problems G8 SISTER FH: lung cancer 19 FATHER Thyroid disease 19 MOTHER Cancer Physical Exam-Suspected Sepsis Physical Exam Vital Signs Vital Signs - First Documented 09/04/21 15:10 Temp 37.0 Pulse 80 Resp 18 B/P (MAP) 84/53 (63) Pulse Ox 96 O2 Delivery Nasal Cannula O2 Flow Rate 4.00 Capillary Refill : Blood Pressure Mean: 63 Height, Weight, BMI Height: 5'3.00" Weight: 110lbs. 0.0oz. 49.691841dt; 122.00 BMI Method:Stated General Appearance: No Apparent Distress, WD/WN HEENT: PERRL/EOMI, Normal ENT Inspection Neck: Normal Inspection Respiratory: No Accessory Muscle Use, No Respiratory Distress, Crackles, Rhonci, Other (Diminished in the bases) Cardiovascular: Regular Rate, Rhythm, No Edema, No Murmur Gastrointestinal: Non Tender, Soft; No Distended Extremity: Normal Inspection, Non Tender, No Pedal Edema Skin: normal color, warm/dry Focused Exam Lactate Level 09/04/21 16:15: Lactic Acid Level 1.51 Lactic Acid Level Progress/Results/Core Measures Suspected Sepsis SIRS Temperature: Pulse: 80 Respiratory Rate: 18 Laboratory Tests 09/04/21 16:15: White Blood Count 8.2 Blood Pressure 84 /53 Mean: 63 09/04/21 16:15: Lactic Acid Level 1.51 Laboratory Tests 09/04/21 16:15: Creatinine 1.20, INR Comment 1.0, Platelet Count 290, Total Bilirubin 0.2 Results/Orders Lab Results Laboratory Tests Test 09/04/21 15:15 09/04/21 16:15 Range/Units Influenza Type A (RT-PCR) Not Detected Not Detecte Influenza Type B (RT-PCR) Not Detected Not Detecte SARS-CoV-2 RNA (RT-PCR) Not Detected Not Detecte White Blood Count 8.2 4.3-11.0 10^3/uL Red Blood Count 3.53 L 3.80-5.11 10^6/uL Hemoglobin 10.7 L 11.5-16.0 g/dL Hematocrit 35 35-52 % Mean Corpuscular Volume 98 80-99 fL Mean Corpuscular Hemoglobin 30 25-34 pg Mean Corpuscular Hemoglobin Concent 31 L 32-36 g/dL Red Cell Distribution Width 15.6 H 10.0-14.5 % Platelet Count 290 130-400 10^3/uL Mean Platelet Volume 9.6 9.0-12.2 fL Immature Granulocyte % (Auto) 2 % Neutrophils (%) (Auto) 55 42-75 % Lymphocytes (%) (Auto) 25 12-44 % Monocytes (%) (Auto) 13 H 0-12 % Eosinophils (%) (Auto) 5 0-10 % Basophils (%) (Auto) 0 0-10 % Neutrophils # (Auto) 4.5 1.8-7.8 10^3/uL Lymphocytes # (Auto) 2.1 1.0-4.0 10^3/uL Monocytes # (Auto) 1.0 0.0-1.0 10^3/uL Eosinophils # (Auto) 0.4 H 0.0-0.3 10^3/uL Basophils # (Auto) 0.0 0.0-0.1 10^3/uL Immature Granulocyte # (Auto) 0.1 0.0-0.1 10^3/uL Prothrombin Time 13.6 12.2-14.7 SEC INR Comment 1.0 0.8-1.4 Activated Partial Thromboplast Time 40 H 24-35 SEC Sodium Level 140 135-145 MMOL/L Potassium Level 3.5 L 3.6-5.0 MMOL/L Chloride Level 101 98-107 MMOL/L Carbon Dioxide Level 27 21-32 MMOL/L Anion Gap 12 5-14 MMOL/L Blood Urea Nitrogen 17 7-18 MG/DL Creatinine 1.20 0.60-1.30 MG/DL Estimat Glomerular Filtration Rate 44 BUN/Creatinine Ratio 14 Glucose Level 106 H 70-105 MG/DL Lactic Acid Level 1.51 0.50-2.00 MMOL/L Calcium Level 8.3 L 8.5-10.1 MG/DL Corrected Calcium 9.2 8.5-10.1 MG/DL Total Bilirubin 0.2 0.1-1.0 MG/DL Aspartate Amino Transf (AST/SGOT) 21 5-34 U/L Alanine Aminotransferase (ALT/SGPT) 14 0-55 U/L Alkaline Phosphatase 65 40-136 U/L C-Reactive Protein High Sensitivity 10.50 H 0.00-0.50 MG/DL Total Protein 5.6 L 6.4-8.2 GM/DL Albumin 2.9 L 3.2-4.5 GM/DL Procalcitonin 0.21 H <0.10 NG/ML My Orders Orders - KENDRA LYN MD Influenza A And B By Pcr (09/04/21 14:41) Covid 19 Inhouse Test (09/04/21 14:41) Cbc With Automated Diff (09/04/21 15:38) Comprehensive Metabolic Panel (09/04/21 15:38) Hs C Reactive Protein (09/04/21 15:38) Procalcitonin (Pct) (09/04/21 15:38) Ed Iv/Invasive Line Start (09/04/21 15:38) Blood Culture (09/04/21 15:41) Protime With Inr (09/04/21 15:41) Partial Thromboplastin Time (09/04/21 15:41) Chest 1 View, Ap/Pa Only (09/04/21 15:41) Vital Signs Adult Sepsis Patie Q15M (09/04/21 15:41) O2 (09/04/21 15:41) Remove Rings In Anticipation O (09/04/21 15:41) Lactic Acid Analyzer (09/04/21 15:41) Lactated Ringers (Lr 1000 Ml Iv Solution (09/04/21 15:45) Albuterol/Ipra Inhalation Soln (Duoneb I (09/04/21 16:45) Svn Small Volume Nebulizer (09/04/21 16:42) Meropenem (Merrem 500 Mg) (09/04/21 16:45) Lactated Ringers (Lr 1000 Ml Iv Solution (09/04/21 17:00) Medications Given in ED Vital Signs/I&O Capillary Refill : Blood Pressure Mean: 63 Progress Note : Time: 18:03 Progress Note Labs did not support sepsis or septic shock. I believe the hypotension was secondary to hypovolemia. Systolic blood pressure is now 101 after 2 L LR. She states her normal systolic blood pressure is in the mid 90s. Patient is feeling relatively well. X-ray did reveal a right lower lobe pneumonia. Plan to treat this with doxycycline. She received a dose of meropenem in the ER because of her allergy profile. She also received a Duoneb treatment. Patient states she has had some urinary tract infection symptoms. She did not give a urine spec imen here because of contamination from diarrhea. She did not want to have a straight catheter specimen obtained, and she states she would like to pursue a urinalysis as an outpatient at [facility]. She is to continue on her steroid taper and her oral vancomycin for C. difficile. She has a strong desire to return home. Since her vital signs are stable at this time, I am allowing her to be discharged with close follow-up. Patient complains of significant sore throat. Throat is normal to inspection. I am suspicious she may have esophageal candidiasis due to her steroid and antibiotic use. I am recommending probiotics and a couple doses of Diflucan. See discharge instructions for further discussion. Diagnostic Imaging Diagonstic Imaging: Xray Plain Films/CT/US/NM/MRI: chest Comments Chest x-ray viewed by me and report reviewed. See report below: NAME: AYO CHÁVEZ [facility] REC#: [id number] PT STATUS: REG ER : 1945 PHYSICIAN: KENDRA LYN MD ADMIT DATE: 09/04/21/ER Signed Date of Exam:09/04/21 CHEST 1 VIEW, AP/PA ONLY INDICATION: Sepsis. COMPARISON: 06/25/2021. FINDINGS: A single view of the chest demonstrates increasing atelectasis and/or infiltrate in the right base. The left lung is clear. The heart is prominent but stable. There is no pneumothorax. The osseous structures are stable. IMPRESSION: Increasing opacity in the right base. Dictated by: Dictated on workstation # [id number] Dict: 09/04/21 1611 Trans: 09/04/21 1625 [id number] Interpreted by: MINA CURTIS Electronically signed by: MINA CURTIS 09/04/21 1625 Departure Impression Primary Impression: Right lower lobe pneumonia Qualified Codes: J18.9 - Pneumonia, unspecified organism Additional Impressions: Hypovolemia C. difficile colitis COPD exacerbation Sore throat Disposition: 01 HOME, SELF-CARE Condition: Improved Departure-Patient Inst. Decision time for Depature: 18:02 Referrals: TIA DANIEL MD (PCP/Family) Primary Care Physician Patient Instructions: COPD Exacerbation, Adult ED, Clostridioides difficile, Pneumonia, Adult ED Add. Discharge Instructions: Drink plenty of clear liquids to stay well-hydrated. Continue using your medications as previously prescribed including your steroid taper. I am suspicious your sore throat may be caused by yeast esophagitis from steroid and antibiotic use. Use the Diflucan by taking 1 tablet today and then another tablet in 3 or 4 days. Start doxycycline for treatment of pneumonia. Complete the entire course. Add probiotics to your treatment for C. difficile. Return to care if you have worsening symptoms. Follow-up with Dr. Serna or Shankar He as soon as possible. Call with questions or concerns. All discharge instructions reviewed with patient and/or family. Voiced understanding. Scripts Fluconazole (Diflucan) 150 Mg Tablet 150 MG PO UD, #2 TAB Take 1 tablet now. Repeat in 3 or 4 days. Prov: KENDRA LYN MD 09/04/21 L.acidoph & Paracasei,B.lactis (Probiotic) 1 Each Capsule 1 EACH PO TID, #90 CAP Prov: KENDRA LYN MD 09/04/21 Doxycycline Hyclate (Doxycycline Hyclate) 100 Mg Tablet 100 MG PO BID, #20 TAB 0 Refills Prov: KENDRA LYN MD 09/04/21 Copy Copies To 1: MERVAT SERNA MD Copies To 2: SHANKAR HE JOSHUA T MD Sep 04, 2021 18:05
[2021-09-04] MEDS ORDERED: L.AC1CAP6 PO (18:10)
[2021-09-04] MEDS ORDERED: DOXY100T2 PO (18:10)
[2021-09-04] MEDS ORDERED: FLUC150T PO (18:10)
[2021-09-04 18:14] VITALS: BP 101/52
== END 2021-09-04 18:26 | disposition home or self-care (01) ==
LOC: EDUNIT# 14:37 → ER 14:40
DX: J18.1 Lobar pneumonia, unspecified organism (principal); E86.1 Hypovolemia; K52.9 Noninfective gastroenteritis and colitis, unspecified; J44.1 Chronic obstructive pulmonary disease with (acute) exacerbation; J02.9 Acute pharyngitis, unspecified; I10 Essential (primary) hypertension; F41.9 Anxiety disorder, unspecified; G89.29 Other chronic pain; M54.9 Dorsalgia, unspecified; Z20.822 Contact with and (suspected) exposure to COVID-19; Z79.891 Long term (current) use of opiate analgesic; Z79.82 Long term (current) use of aspirin
CPT/HCPCS: 36415; 71045; 80053; 83605; 84145; 85025; 85610; 85730; 86141; 87040; 87636

== ENCOUNTER → 2021-09-13 | Outpatient (CLI) | payer MEDICARE ==
[~2021-09-13] MED LIST changes: +DOXY100T2 PO; +FLUC150T PO; +L.AC1CAP6 PO; -LEVO250T46 PO; +LVF250T PO; -POTA10TA36 PO; +POTA10TA37 PO
--- NOTE | 2021-09-13 12:50 | Diagnostic Imaging Report ---
INDICATION: Chest pain. TECHNIQUE: PA and lateral views of the chest are obtained. COMPARISON: Comparison is made to study of 09/04/2021. FINDINGS: Overall heart size and pulmonary vascularity are within normal limits. There are partially healed rib fractures bilaterally. No pneumothorax is identified. Surgical findings are seen in the lower cervical spine. There is mild compression deformity involving a lower thoracic vertebral body of indeterminate age. IMPRESSION: No pneumothorax identified. There are multiple [id number] bilateral rib fractures with lower thoracic compression fracture deformity noted. Otherwise, no definite acute abnormality is seen. Dictated by: Dictated on workstation # [id number]
== END ==
LOC: RAD 12:23
PROVIDERS: ATTEND Physician Assistant
DX: S22.43XA Multiple fractures of ribs, bilateral, initial encounter for closed fracture (principal); M43.8X4 Other specified deforming dorsopathies, thoracic region; X58.XXXA Exposure to other specified factors, initial encounter
CPT/HCPCS: 71046

== ENCOUNTER → 2021-09-26 | Outpatient (CLI) | payer MEDICARE | LOC: LABNPT 08:38 | PROVIDERS: ATTEND Internal Medicine | DX: Z20.822 Contact with and (suspected) exposure to COVID-19 (principal) | CPT/HCPCS: 87636 ==

== ENCOUNTER 2021-12-05 22:51 | Emergency (ER) | payer MEDICARE ==
[2021-12-05 23:06] LABS: ABG BASE EXCESS 1.2 MMOL/L (-2.5-2.5); ABG OXYGEN SATURATION 93 % (94-100); ABG PO2 81 MMHG (79-93); ABG TCO2 30.4 MMOL/L (21.0-31.0)
[2021-12-05 23:07] LABS: ALLENS TEST YES-POS; INSPIRED O2 7L NRB; PATIENT TEMP 36.9; VENTILATOR NO
[2021-12-05 23:08] LABS: ABG PCO2 72 MMHG (35-45); ABG PH 7.22 (7.37-7.43)
[2021-12-05 23:10] LABS: BASOPHILS # (AUTO) 0.1 10^3/uL (0.0-0.1); BASOPHILS % (AUTO) 1 % (0-10); EOSINOPHILS # (AUTO) 2.3 10^3/uL (0.0-0.3); EOSINOPHILS % (AUTO) 16 % (0-10); HEMATOCRIT 51 % (35-52); HEMOGLOBIN 15.3 g/dL (11.5-16.0); LYMPHOCYTES # (AUTO) 2.8 10^3/uL (1.0-4.0); LYMPHOCYTES % (AUTO) 20 % (12-44); MEAN CORPUSCULAR HEMOGLOBIN 30 pg (25-34); MEAN CORPUSCULAR HGB CONC 30 g/dL (32-36); MEAN CORPUSCULAR VOLUME 99 fL (80-99); MEAN PLATELET VOLUME 9.7 fL (9.0-12.2); MONOCYTES # (AUTO) 0.9 10^3/uL (0.0-1.0); MONOCYTES % (AUTO) 6 % (0-12); NEUTROPHILS # (AUTO) 7.7 10^3/uL (1.8-7.8); NEUTROPHILS % (AUTO) 56 % (42-75); PLATELET COUNT 493 10^3/uL (130-400); WHITE BLOOD COUNT 13.8 10^3/uL (4.3-11.0)
--- NOTE | 2021-12-05 23:13 | ED Respiratory ---
General Chief Complaint: Respiratory Problems Stated Complaint: COPD Source: patient Exam Limitations: no limitations History of Present Illness Date Seen by Provider: Dec 05, 2021 Time Seen by Provider: 22:45 Initial Comments Patient to the ER by EMS from home with chief complaint about 2 hours ago started having some worsening shortness of air. No history of heart failure or chest pain. No history of coronary disease. She does have a history of COPD and takes 3 to 4 L of oxygen by nasal cannula supplementally at baseline. Patient was in the low 80s on baseline oxygen per EMS when they arrived. They put her on a nonrebreather at 10 L which brought her to 92 to 94%. Patient states she took a couple puffs of her albuterol and and a DuoNeb inhaled nebulized breathing treatment. Neither 1 seem to help her. She is not having a productive cough fevers chills nausea vomiting or pain. She does not wear CPAP at night. She does not have diabetes. She is known to MABEL Mistry at [facility]. She is on Eliquis and Lasix. She denies any weight gain or swelling in her legs. She has a headache tonight. Allergies and Home Medications Allergies Coded Allergies: nitrofurantoin (Verified Allergy, Severe, RASH, 12/10/15) ITCHING AND RASH sulfamethoxazole (Verified Allergy, Severe, RASH, 12/10/15) ITCHING AND RASH trimethoprim (Verified Allergy, Severe, RASH, 12/10/15) ITCHING AND RASH azithromycin (Verified Allergy, Unknown, 08/14/14) cefixime (Verified Allergy, Unknown, 08/14/14) Patient Home Medication List Home Medication List Reviewed: Yes Acetaminophen (Tylenol) 325 Mg Capsule, 325-650 MG PO Q8H PRN for PAIN-MILD (1- 4), (Reported) Entered as Reported by: ZORAN BUTT on 06/14/21 0927 Albuterol Sulfate (Proair Hfa) 1 Puff Puff, 2 PUFF IH Q4H PRN for WHEEZING, (Reported) Entered as Reported by: JULIAN ALVARADO on 11/04/19 1241 Alprazolam (Alprazolam) 0.5 Mg Tablet, 0.5 MG PO BID PRN for ANXIETY Prescribed by: GELY CAMERON on 06/25/21 1427 Apixaban (Eliquis) 5 Mg Tablet, 5 MG PO BID Prescribed by: JAYCOB FRIEDMAN on 06/19/21 0937 Aspirin (Aspirin) 81 Mg Tab.chew, 81 MG PO DAILY, (Reported) Entered as Reported by: JULIAN ALVARADO on 11/04/19 1235 Budesonide (Rhinocort Allergy) 8.43 Ml [place].pump, 2 SPRAYS NS DAILY, (Reported) Entered as Reported by: EVIN HOLLAND on 04/09/21 1305 Calcium Carbonate (Calcium) 600 Mg Tablet, 1,200 MG PO DAILY, (Reported) Entered as Reported by: JULIAN ALVARADO on 11/04/19 1241 Cetirizine HCl (Zyrtec) 10 Mg Tablet, 10 MG PO DAILY, (Reported) Entered as Reported by: JULIAN ALVARADO on 11/04/19 1241 Chlorhexidine Gluconate (Chlorhexidine Gluconate) 473 Ml Mouthwash, 15 ML PO BID, (Reported) Entered as Reported by: EVIN HOLLAND on 04/09/21 1305 Cholecalciferol (Vitamin D3) (Vitamin D3) 50 Mcg Capsule, 50 MCG PO DAILY, (Reported) Entered as Reported by: JULIAN ALVARADO on 11/04/19 1241 Ciprofloxacin HCl (Ciprofloxacin HCl) 500 Mg Tablet, 500 MG PO BID Prescribed by: JAYCOB FRIEDMAN on 06/19/21 0849 Citalopram Hydrobromide (Citalopram HBr) 20 Mg Tablet, 20 MG PO HS, (Reported) Entered as Reported by: EVIN HOLLAND on 04/09/21 1305 Diltiazem HCl (Diltiazem 24Hr ER) 240 Mg Cap.er.24h, 240 MG PO DAILY Prescribed by: JAYCOB FRIEDMAN on 06/19/21 0937 Diltiazem HCl (Diltiazem ER) 120 Mg Capsule.er, 120 MG PO DAILY Prescribed by: SLIME OLSON on 06/29/21 1303 Doxycycline Hyclate (Doxycycline Hyclate) 100 Mg Tablet, 100 MG PO BID Prescribed by: KENDRA GROSS on 09/04/21 1810 Dronedarone HCl (Multaq) 400 Mg Tablet, 400 MG PO BID Prescribed by: JAYCOB FRIEDMAN on 06/19/21 0937 Ergocalciferol (Vitamin D2) (Vitamin D2) 1,250 Mcg Capsule, 1,250 MCG PO FRIDAY, (Reported) Entered as Reported by: EVIN HOLLAND on 04/11/21 1244 Fluconazole (Diflucan) 150 Mg Tablet, 150 MG PO UD Prescribed by: KENDRA GROSS on 09/04/211809 Formoterol Fumarate (Perforomist) 20 Mcg/2 Ml Vial.neb, 2 ML NEB BID, (Reported) Entered as Reported by: JULIAN ALVARADO on 11/04/19 1241 Furosemide (Furosemide) 40 Mg Tablet, 40 MG PO DAILY, (Reported) Entered as Reported by: ZORAN BUTT on 06/14/21 09 Hydrocodone/Acetaminophen (Hydrocodone-Acetamin 10-325 mg) 1 Each Tablet, 1 EACH PO QID PRN for PAIN-MODERATE (5-7) Prescribed by: GELY CAMERON on 06/25/21 1427 Ipratropium [place] (Ipratropium [place]) 0.2 Mg/1 Ml Solution, 0.2 MG IH TID PRN for SHORTNESS OF BREATH, (Reported) Entered as Reported by: JULIAN ALVARADO on 11/04/19 1241 L.acidoph & Paracasei,B.lactis (Probiotic) 1 Each Capsule, 1 EACH PO TID Prescribed by: KENDRA GROSS on 09/04/211809 Levofloxacin (Levofloxacin) 250 Mg Tablet, 250 MG PO DAILY Prescribed by: SLIME OLSON on 06/29/21 1303 Pedi Mv No.79/Ferrous Fumarate (Flintstones with Iron Tab Chew) 18 Mg Tab.chew, 18 MG PO DAILY, (Reported) Entered as Reported by: EVIN HOLLAND on 04/09/21 1305 Potassium Chloride (K-Tab ER) 10 Meq Tablet.er, 10 MEQ PO DAILY, (Reported) Entered as Reported by: ZORAN BUTT on 06/14/21 09 Promethazine HCl/Codeine (Promethazine-Codeine Solution) 473 Ml Syrup, 5 ML PO HS, (Reported) Entered as Reported by: EVIN HOLLAND on 04/09/21 1305 Spironolactone (Spironolactone) 25 Mg Tablet, 25 MG PO DAILY, (Reported) Entered as Reported by: JULIAN ALVARADO on 11/04/19 1241 Tamsulosin HCl (Flomax) 0.4 Mg Cap, 0.4 MG PO HS, (Reported) Entered as Reported by: JULIAN ALVARADO on 11/04/19 1241 Thyroid,Pork ([place] Thyroid) 60 Mg Tablet, 90 MG PO DAILY, (Reported) Entered as Reported by: ZORAN BUTT on 04/12/21 1029 Review of Systems Review of Systems Constitutional: No chills, No diaphoresis EENTM: No ear discharge, No ear pain, No blurred vision Respiratory: No cough, No short of breath Cardiovascular: No chest pain, No edema Gastrointestinal: No abdominal pain, No nausea, No vomiting Genitourinary: No discharge, No dysuria Musculoskeletal: No back pain, No joint pain All Other Systems Reviewed Negative Unless Noted: Yes Past Wuptkko-Zmhvdw-Hmyvfu Hx Patient Social History Tobacco Use?: No Use of E-Cig and/or Vaping dev: No Substance use?: No Immunizations Up To Date PED Vaccines UTD: No First/Initial COVID19 Vaccinat: DECEMBER 2020 Second COVID19 Vaccination Aron: JANUARY 2021 Third COVID19 Vaccination Date: DECEMBER 2020 Seasonal Allergies Seasonal Allergies: Yes Past Medical History Surgery/Hospitalization HX: PMH: UTI, COPD, AFIB, CHF, ANEMIA, HYPOTHYROIDISM, CHRONIC KIDNEY DISEASE, ANXIETY, DEPRESSION, GERD, GASTRIL ULCER, DIVERTICULOSIS Surgeries: Yes (cervical spine, teeth removal) Breast, Orthopedic, Thyroidectomy Respiratory: Yes Pneumonia, COPD Cardiac: Yes Chronic Edema/Swelling, Hypertension Neurological: Yes (TREMORS) Headaches /Migraines Reproductive Disorders: No Female Reproductive Disorders: Denies Genitourinary: Yes (retention) Bladder Infection Gastrointestinal: Yes (C. difficile colitis) Musculoskeletal: Yes (CERVICAL SPINE SX) Osteoporosis, Chronic Back Pain Endocrine: Yes (BENIGN THYROID TUMOR) Hypothyroidsim HEENT: No Cancer: No Psychosocial: Yes Anxiety Integumentary: No Blood Disorders: No Family Medical History Bladder problems G8 SISTER FH: lung cancer 19 FATHER Thyroid disease 19 MOTHER Cancer Physical Exam Vital Signs - First Documented 12/05/21 22:55 Temp 36.9 Pulse 78 Resp 25 B/P (MAP) 138/87 (104) Pulse Ox 97 O2 Delivery Non Rebreather O2 Flow Rate 7.00 Capillary Refill : Height: 5'3.00" Weight: 110lbs. 0.0oz. 49.057856mt; 122.00 BMI Method:Stated General Appearance: moderate distress, thin (Chronically ill) Eyes: Bilateral Eye Normal Inspection, Bilateral Eye PERRL, Bilateral Eye EOMI HEENT: PERRL/EOMI, normal ENT inspection, TMs normal, pharynx normal Neck: full range of motion, supple, normal inspection Respiratory: lungs clear, normal breath sounds, no respiratory distress, no accessory muscle use Cardiovascular: normal peripheral pulses, regular rate, rhythm Gastrointestinal: non tender, soft Extremities: normal range of motion, non-tender, no pedal edema, normal capillary refill Neurologic/Psychiatric: alert, normal mood/affect, oriented x 3 Skin: normal color, warm/dry Progress/Results/Core Measures Suspected Sepsis SIRS Temperature: Pulse: Respiratory Rate: Laboratory Tests 12/05/21 23:00: White Blood Count 13.8H Blood Pressure / Mean: Laboratory Tests 12/05/21 23:00: Creatinine 0.90, INR Comment 1.1, Platelet Count 493H, Total Bilirubin 0.3 Results/Orders Lab Results Laboratory Tests Test 12/05/21 22:58 12/05/21 23:00 12/05/21 23:01 Range/Units Blood Gas Puncture Site R RAD Blood Gas Patient Temperature 36.9 Arterial Blood pH 7.22 *L 7.37-7.43 Arterial Blood Partial Pressure CO2 72 *H 35-45 MMHG Arterial Blood Partial Pressure O2 81 79-93 MMHG Arterial Blood HCO3 28 H 23-27 MMOL/L Arterial Blood Total CO2 30.4 21.0-31.0 MMOL/L Arterial Blood Oxygen Saturation 93 L 94-100 % Arterial Blood Base Excess 1.2 -2.5-2.5 MMOL/L [place] Test YES-POS Blood Gas Ventilator Setting NO Blood Gas Inspired Oxygen 7L NRB White Blood Count 13.8 H 4.3-11.0 10^3/uL Red Blood Count 5.14 H 3.80-5.11 10^6/uL Hemoglobin 15.3 11.5-16.0 g/dL Hematocrit 51 35-52 % Mean Corpuscular Volume 99 80-99 fL Mean Corpuscular Hemoglobin 30 25-34 pg Mean Corpuscular Hemoglobin Concent 30 L 32-36 g/dL Red Cell Distribution Width 14.8 H 10.0-14.5 % Platelet Count 493 H 130-400 10^3/uL Mean Platelet Volume 9.7 9.0-12.2 fL Immature Granulocyte % (Auto) 1 % Neutrophils (%) (Auto) 56 42-75 % Lymphocytes (%) (Auto) 20 12-44 % Monocytes (%) (Auto) 6 0-12 % Eosinophils (%) (Auto) 16 H 0-10 % Basophils (%) (Auto) 1 0-10 % Neutrophils # (Auto) 7.7 1.8-7.8 10^3/uL Lymphocytes # (Auto) 2.8 1.0-4.0 10^3/uL Monocytes # (Auto) 0.9 0.0-1.0 10^3/uL Eosinophils # (Auto) 2.3 H 0.0-0.3 10^3/uL Basophils # (Auto) 0.1 0.0-0.1 10^3/uL Immature Granulocyte # (Auto) 0.1 0.0-0.1 10^3/uL Neutrophils % (Manual) 58 % Lymphocytes % (Manual) 15 % Monocytes % (Manual) 9 % Eosinophils % (Manual) 12 % Basophils % (Manual) 0 % Band Neutrophils 0 % Reactive Lymphocytes 6 % Toxic Granulation 1+ Anisocytosis SLIGHT Prothrombin Time 14.4 12.2-14.7 SEC INR Comment 1.1 0.8-1.4 D-Dimer 0.61 H 0.00-0.49 UG/ML Sodium Level 142 135-145 MMOL/L Potassium Level 5.3 H 3.6-5.0 MMOL/L Chloride Level 107 98-107 MMOL/L Carbon Dioxide Level 26 21-32 MMOL/L Anion Gap 9 5-14 MMOL/L Blood Urea Nitrogen 9 7-18 MG/DL Creatinine 0.90 0.60-1.30 MG/DL Estimat Glomerular Filtration Rate 67 BUN/Creatinine Ratio 10 Glucose Level 117 H 70-105 MG/DL Calcium Level 9.7 8.5-10.1 MG/DL Corrected Calcium 10.1 8.5-10.1 MG/DL Total Bilirubin 0.3 0.1-1.0 MG/DL Aspartate Amino Transf (AST/SGOT) 21 5-34 U/L Alanine Aminotransferase (ALT/SGPT) 7 0-55 U/L Alkaline Phosphatase 65 40-136 U/L Troponin I < 0.028 <0.028 NG/ML C-Reactive Protein High Sensitivity 0.49 0.00-0.50 MG/DL B-Type Natriuretic Peptide 139.8 H <100.0 PG/ML Total Protein 6.9 6.4-8.2 GM/DL Albumin 3.5 3.2-4.5 GM/DL Procalcitonin 0.05 <0.10 NG/ML Influenza Type A (RT-PCR) Not Detected Not Detecte Influenza Type B (RT-PCR) Not Detected Not Detecte SARS-CoV-2 RNA (RT-PCR) Not Detected Not Detecte My Orders Orders - GELY CAMERON Arterial Blood Gas (12/05/21 22:59) Methylprednisolone Sod Succ (Solu-Medrol (12/05/21 23:15) Piperacillin Sodium/Tazobactam (Zosyn Vi (12/05/21:15) Vancomycin Injection (Vancomycin Injecti (12/05/21:15) Ed Iv/Invasive Line Start (12/05/21:) Lactated Ringers (Lr 1000 Ml Iv Solution (12/05/21:15) Cbc With Automated Diff (12/05/21:) Comprehensive Metabolic Panel (12/05/21:) Hs C Reactive Protein (12/05/21:) Bnp [place] (12/05/21:) Troponin I [place] (12/05/21:) Continuous Ekg Monitoring (12/05/21:) Ekg Tracing (12/05/21:) Blood Culture (12/05/21:) Procalcitonin (Pct) (12/05/21:) Protime With Inr (12/05/21:) Covid 19 Inhouse Test (12/05/21:) Influenza A And B By Pcr (12/05/21:) Fibrin Degradation Products (12/05/21:) Bipap (Bilevel) Set Up (12/05/21:) Manual Differential (12/05/21:00) Lorazepam Injection (Ativan Injection) (12/05/21 23:45) Chest 1 View, Ap/Pa Only (12/06/21 00:01) Medications Given in ED Current Medications Medications Dose Ordered Sig/Chai Route Start Time Stop Time Status Last Admin Dose Admin Lactated Ringer's 1,000 ml @ 0 mls/hr Q0M ONCE IV 12/05/21 23:15 12/05/21 23:16 DC 12/05/21 23:13 1,000 MLS/HR Methylprednisolone Sodium Succinate 125 mg ONCE ONCE IVP 12/05/21 23:15 12/05/21 23:16 DC 12/05/21 23:13 125 MG Piperacillin Sod/ Tazobactam Sod 4.5 gm/Sodium Chloride 100 ml @ 200 mls/hr ONCE ONCE IV 12/05/21 23:15 12/05/21 23:44 DC 12/05/21 23:23 200 MLS/HR Vancomycin HCl 1000 mg/Sodium Chloride 250 ml @ 250 mls/hr ONCE ONCE IV 12/05/21 23:15 12/06/21 00:14 DC 12/05/21 23:21 250 MLS/HR Vital Signs/I&O 12/05/21 12/05/21 12/05/21 22:55 23:00 23:30 Temp 36.9 Pulse 78 84 Resp 25 24 B/P (MAP) 138/87 (104) Pulse Ox 97 97 O2 Delivery Non Rebreather O2 Flow Rate 7.00 3.00 45.00 Capillary Refill : Progress Note #1: Time: 23:12 Progress Note Initiate BiPAP, ABG labs and chest x-ray. Is not septic by vital signs. No history of fever or chills. We will go ahead and initiate Solu-Medrol and antibiotics. Covid and influenza swabs. Patient's initial ABG findings respiratory acidosis with CO2 of 72 and pH of 7.2 merit a stay in the hospital. BiPap 12/6 @45% FiO2. Progress Note #2: Time: 00:15 Progress Note Jordan: 1215: Paged Dr. Liriano ECG Initial ECG Impression Date: Dec 05, 2021 Initial ECG Impression Time: 23:02 Initial ECG Rate: 75 Initial ECG Rhythm: Normal Sinus Initial ECG Intervals: QT (470) Initial ECG Impression: Normal Comment Normal sinus rhythm without clinically relevant ST changes Diagnostic Imaging Diagonstic Imaging: Xray Plain Films/CT/US/NM/MRI: chest Comments COPD. Scant pleural effusion with blunting of the right side costophrenic angle. No infiltrate Reviewed: Reviewed by Me Departure Impression Primary Impression: Acute respiratory failure with hypoxia and hypercapnia Disposition: XFER SHT-TRM HOSP Condition: Stable Transfer Transfer Reason: Exceeds level of care (On diversion.) Time Spoke to Accepting Phy: 00:34 Transfer Progress Notes Discussed the case with Dr. Liriano and he agrees to accept the patient to [facility]. They will call back with room and report. Transfer Facility: [facility], [place]. Method of Transfer: EMS Departure-Patient Inst. Referrals: MERVAT SERNA MD (PCP) Primary Care Physician GELY CAMERON Dec 05, 2021 23:13
[2021-12-05] MEDS ORDERED: PIPERACILLIN SODIUM/TAZOBACTAM 4.5 GM in NS (IVPB) 100 ML IV ONE (23:15)
[2021-12-05] MEDS ORDERED: LACTATED RINGERS 1,000 ML IV ONE (23:15)
[2021-12-05] MEDS ORDERED: methylPREDNISolone 125 MG (Solu-MEDROL) VIAL IVP ONE (23:15)
[2021-12-05] MEDS ORDERED: VANCOMYCIN INJECTION 1,000 MG in NS (IVPB) 250 ML IV ONE (23:15)
[2021-12-05 23:21] LABS: FIBRIN DEGRADATION PRODUCTS 0.61 UG/ML (0.00-0.49); INR 1.1 (0.8-1.4); PROTHROMBIN TIME PATIENT 14.4 SEC (12.2-14.7)
[2021-12-05 23:28] LABS: ALBUMIN 3.5 GM/DL (3.2-4.5)
[2021-12-05 23:29] LABS: BAND NEUTROPHILS 0 %; BASOPHILS % (MANUAL) 0 %; CHLORIDE 107 MMOL/L (98-107); EOSINOPHILS % (MANUAL) 12 %; LYMPHOCYTES % (MANUAL) 15 %; MONOCYTES % (MANUAL) 9 %; NEUTROPHILS % (MANUAL) 58 %; POTASSIUM 5.3 MMOL/L (3.6-5.0); REACTIVE LYMPHOCYTES 6 %; SODIUM 142 MMOL/L (135-145)
[2021-12-05 23:30] LABS: ANISOCYTOSIS SLIGHT; CALCIUM 9.7 MG/DL (8.5-10.1); TOXIC GRANULATION/VACUOLAZATIO 1+
[2021-12-05 23:31] LABS: GLUCOSE 117 MG/DL (70-105); TOTAL PROTEIN 6.9 GM/DL (6.4-8.2)
[2021-12-05 23:32] LABS: CARBON DIOXIDE 26 MMOL/L (21-32)
[2021-12-05 23:33] LABS: BILIRUBIN,TOTAL 0.3 MG/DL (0.1-1.0)
[2021-12-05 23:34] LABS: ALKALINE PHOSPHATASE 65 U/L (40-136)
[2021-12-05 23:35] LABS: GFR ESTIMATED 67
[2021-12-05 23:36] LABS: BUN/CREATININE RATIO 10
[2021-12-05 23:38] LABS: ALANINE AMINOTRANSFERASE 7 U/L (0-55)
[2021-12-05] MEDS ORDERED: LORazepam INJ 2 MG/ML (ATIVAN) VIAL IVP ONE (23:45)
[2021-12-06 02:27] VITALS: BP 129/70
--- NOTE | 2021-12-06 07:36 | Diagnostic Imaging Report ---
INDICATION: Shortness of air COMPARISON: 09/13/2021 TECHNIQUE: Single frontal radiograph of the chest dated 12/06/2021. FINDINGS: The cardiac silhouette is within normal limits in size. No significant pulmonary vascular congestion. The lungs are hyperinflated. Mild chronic background interstitial opacities are again seen within the lungs. [place] lobe fissure noted on the right. There has been interval development of a small right basilar pleural-parenchymal opacity. Multiple bilateral chronic and healing rib fractures are again seen. No pneumothorax. Postsurgical changes within the cervical spine. No new acute osseous abnormality. IMPRESSION: Development of a small right basilar pleural-parenchymal opacity, related to a combination of pleural fluid with adjacent atelectasis and/or infiltrate. Persistent background pulmonary hyperinflation with minimal chronic interstitial lung changes. Multiple bilateral chronic healed and healing rib fractures. Dictated by: Dictated on workstation # [id number]
== END 2021-12-06 03:37 | disposition short-term general hospital (02) ==
LOC: EDUNIT# 22:51 → ER 22:52
DX: J96.01 Acute respiratory failure with hypoxia (principal); J96.02 Acute respiratory failure with hypercapnia; Z20.822 Contact with and (suspected) exposure to COVID-19; Z79.01 Long term (current) use of anticoagulants
CPT/HCPCS: 36415; 51702; 71045; 80053; 82805; 83880; 84145; 84484; 85007; 85027; 85379; 85610; 86141; 87040; 87636; 93005; 94660

== ENCOUNTER → 2022-02-05 | Outpatient (CLI) | payer MEDICARE ==
--- NOTE | 2022-02-05 18:30 | Diagnostic Imaging Report ---
INDICATION: Follow-up pneumonia. TIME OF EXAM: 3:36 p.m. COMPARISON: Correlation is made with prior chest 09/13/2021. FINDINGS: Heart size is normal. Patient has developed a [id number] right effusion. Left lung is clear. There is no pneumothorax. Postop changes in the lower cervical spine are noted. IMPRESSION: Development of a right basilar effusion since exam from 09/13/2021. Dictated by: Dictated on workstation # [id number]
--- NOTE | 2022-02-05 18:31 | Diagnostic Imaging Report ---
INDICATION: Left shoulder pain. TIME OF EXAM: 3:38 p.m. FINDINGS: Three views of the left shoulder were obtained. Glenohumeral and acromioclavicular alignment are normal. The acromiohumeral space is normal. No fracture or dislocation is seen. IMPRESSION: No acute bony abnormality is detected. Dictated by: Dictated on workstation # [id number]
== END ==
LOC: RAD 15:13
PROVIDERS: ATTEND Physician Assistant
DX: M25.512 Pain in left shoulder (principal); J44.9 Chronic obstructive pulmonary disease, unspecified; J90 Pleural effusion, not elsewhere classified
CPT/HCPCS: 71046; 73030

== ENCOUNTER 2022-04-28 15:45 | Emergency (ER) | payer MEDICARE ==
[~2022-04-28] VITALS: Ht 157 cm; Wt 42.0 kg
[~2022-04-28 15:45] MED LIST changes: +ACHD5005 PO; +ALBU2.5V4 NEB; +FAMO20TA5 PO; +FORM20VI3 NEB; +MIDO2.5T PO; +MIRT-68 PO; +ONDA4TAB11 PO; +PRED10TA22 PO
[2022-04-28 16:32] LABS: BASOPHILS # (AUTO) 0.1 10^3/uL (0.0-0.1); BASOPHILS % (AUTO) 1 % (0-10); EOSINOPHILS # (AUTO) 0.9 10^3/uL (0.0-0.3); EOSINOPHILS % (AUTO) 7 % (0-10); HEMATOCRIT 38 % (35-52); HEMOGLOBIN 12.2 g/dL (11.5-16.0); LYMPHOCYTES # (AUTO) 2.9 10^3/uL (1.0-4.0); LYMPHOCYTES % (AUTO) 23 % (12-44); MEAN CORPUSCULAR HEMOGLOBIN 30 pg (25-34); MEAN CORPUSCULAR HGB CONC 33 g/dL (32-36); MEAN CORPUSCULAR VOLUME 92 fL (80-99); MEAN PLATELET VOLUME 10.9 fL (9.0-12.2); MONOCYTES # (AUTO) 1.3 10^3/uL (0.0-1.0); MONOCYTES % (AUTO) 11 % (0-12); NEUTROPHILS # (AUTO) 7.1 10^3/uL (1.8-7.8); NEUTROPHILS % (AUTO) 56 % (42-75); PLATELET COUNT 448 10^3/uL (130-400); WHITE BLOOD COUNT 12.5 10^3/uL (4.3-11.0)
[2022-04-28 16:34] LABS: ALBUMIN 3.8 GM/DL (3.2-4.5); POTASSIUM 4.9 MMOL/L (3.6-5.0)
[2022-04-28 16:35] LABS: CALCIUM 10.5 MG/DL (8.5-10.1)
[2022-04-28 16:36] LABS: INR 1.3 (0.8-1.4); PROTHROMBIN TIME PATIENT 16.1 SEC (12.2-14.7)
[2022-04-28 16:37] LABS: TOTAL PROTEIN 6.9 GM/DL (6.4-8.2)
[2022-04-28 16:38] LABS: BILIRUBIN,TOTAL 0.2 MG/DL (0.1-1.0)
[2022-04-28 16:40] LABS: CREATININE SERUM 1.86 MG/DL (0.60-1.30)
--- NOTE | 2022-04-28 16:49 | ED Respiratory ---
General Chief Complaint: Respiratory Problems Stated Complaint: HYPOXIA Nursing Triage Note: PT ARRIVED PER [facility], PT CO OF SOA, EMS STATES SAT WAS 70% ON OWN O2 AT 5L W VERY LONG CORD. PT 100% UPON ARRIVAL TO ED. NO RESP DISTRESS NOTED AT THIS X. PT HAS IV NS INFUSING. PT DENIES PAIN AT THIS. Source: patient, family () Exam Limitations: no limitations (VIKTORIYA MARI MD) History of Present Illness Date Seen by Provider: Apr 28, 2022 Time Seen by Provider: 16:38 Initial Comments Patient is a 77-year-old female history of COPD, oxygen dependent at about 3 L at home. States over the course of the last week she has had increasing nasal congestion and rhinorrhea, increasing shortness of breath and cough. She has had to bump her home oxygen up to 5 L. She also was complaining of some burning with urination at the beginning of the week, she sent a urine sample to [facility] and her nurse practitioner called and she was started on some antibiotics midweek last week. Her states that she only has 2 pills left. She denies fevers or chills. She had a mild sore throat earlier in the week. No headache, chest pain, nausea, vomiting or diarrhea. No loss of taste or smell. She reports no COVID-positive contacts. She does not leave her house usually. She has not had a COVID booster just her initial vaccine series. Patient reports slightly decreased appetite over the course of the last couple of days as well. She does still smoke. She has a history of atrial fibrillation, she follows with Dr. Saleh. She is also scheduled to see Dr. Nuñez for a sleep study soon. Apparently she and her called 911 this afternoon because she was "gasping for breath". When EMS arrived they found that she had a very long oxygen extension tubing at home and when they put her on EMS oxygen her sats came right back up to about 97%. On my evaluation of the patient her blood pressure is in the 70s over 50s. Her heart rate is A. fib RVR 100-1 22. All other review of systems reviewed and negative except as stated Timing/Duration: week Severity: moderate Associated Symptoms: cough, nasal congestion, nasal drainage, shortness of breath, sore throat (VIKTORIYA MARI MD) Allergies and Home Medications Allergies Coded Allergies: nitrofurantoin (Verified Allergy, Severe, RASH, 12/10/15) ITCHING AND RASH sulfamethoxazole (Verified Allergy, Severe, RASH, 12/10/15) ITCHING AND RASH trimethoprim (Verified Allergy, Severe, RASH, 12/10/15) ITCHING AND RASH azithromycin (Verified Allergy, Unknown, 08/14/14) cefixime (Verified Allergy, Unknown, 08/14/14) Patient Home Medication List Home Medication List Reviewed: Yes (VIKTORIYA MARI MD) Acetaminophen (Tylenol) 325 Mg Capsule, 325-650 MG PO Q8H PRN for PAIN-MILD (1-4 ), (Reported) Entered as Reported by: ZORAN BUTT on 06/14/21 0927 Albuterol Sulfate (Proair Hfa) 1 Puff Puff, 2 PUFF IH Q4H PRN for WHEEZING, (Reported) Entered as Reported by: JULIAN ALVARADO on 11/04/19 1241 Albuterol Sulfate (Albuterol Sulfate) 2.5 Mg/3 Ml (0.083 %) Vial.neb, 2.5 MG NEB DAILY, (Reported) Entered as Reported by: ZORAN BUTT on 03/27/22 1110 Alprazolam (Alprazolam) 0.5 Mg Tablet, 0.25 MG PO HS, (Reported) Entered as Reported by: ZORAN BUTT on 03/27/22 1110 Apixaban (Eliquis) 5 Mg Tablet, 5 MG PO BID, (Reported) Entered as Reported by: ZORAN BUTT on 03/27/22 1110 Calcium Carbonate (Calcium) 600 Mg Tablet, 600 MG PO DAILY, (Reported) Entered as Reported by: JULIAN ALVARADO on 11/04/19 1241 Cholecalciferol (Vitamin D3) (Vitamin D3) 50 Mcg Capsule, 50 MCG PO DAILY, ( Reported) Entered as Reported by: JULIAN ALVARADO on 11/04/19 1241 Citalopram Hydrobromide (Citalopram HBr) 20 Mg Tablet, 20 MG PO HS, (Reported) Entered as Reported by: EVIN HOLLAND on 04/09/21 1305 Ergocalciferol (Vitamin D2) (Vitamin D2) 1,250 Mcg (50118 Unit) Capsule, 1,250 MCG PO SUN, (Reported) Entered as Reported by: ZORAN BUTT on 03/27/221109 Famotidine (Famotidine) 20 Mg Tablet, 20 MG PO DAILY, (Reported) Entered as Reported by: ZORAN BUTT on 03/27/221109 Formoterol Fumarate (Formoterol Fumarate) 20 Mcg/2 Ml Vial.neb, 2 ML NEB DAILY, (Reported) Entered as Reported by: ZORAN BUTT on 03/27/221109 Hydrocodone/Acetaminophen (Hydrocodone-Acetamin 5-325 mg) 5 Mg-325 Mg Tablet, 5 MG PO Q6H PRN for PAIN-MODERATE (5-7), (Reported) Entered as Reported by: ZORAN BUTT on 03/27/221109 Ipratropium Quinby (Ipratropium Quinby) 0.2 Mg/1 Ml Solution, 0.2 MG IH TID PRN for SHORTNESS OF BREATH, (Reported) Entered as Reported by: JULIAN ALVARADO on 11/04/19 1241 Midodrine HCl (Midodrine HCl) 2.5 Mg Tablet, 2.5 MG PO TID, (Reported) Entered as Reported by: ZORAN BUTT on 03/27/22 111 Mirtazapine (Mirtazapine) 15 Mg Tablet, 15 MG PO HS, (Reported) Entered as Reported by: ZORAN BUTT on 03/27/221109 Ondansetron (Ondansetron Odt) 4 Mg Tab.rapdis, 4 MG PO Q6H PRN for NAUSEA/VOMITING-1ST LINE, (Reported) Entered as Reported by: ZORAN BUTT on 03/27/221109 Potassium Chloride (K-Tab ER) 10 Meq Tablet.er, 10 MEQ PO DAILY, (Reported) Entered as Reported by: ZORAN BUTT on 06/14/21 09 Prednisone (Prednisone) 10 Mg Tab.ds.pk, 10 MG PO DAILY Prescribed by: JAYCOB FRIEDMAN on 03/28/22 0906 Propranolol HCl (Propranolol HCl) 20 Mg Tablet, 20 MG PO DAILY, (Reported) Entered as Reported by: ZORAN BUTT on 03/27/22 111 Thyroid,Pork ([place] Thyroid) 60 Mg Tablet, 120 MG PO DAILY, (Reported) Entered as Reported by: ZORAN BUTT on 04/12/21 1029 Review of Systems Review of Systems Constitutional: see HPI EENTM: nose congestion, throat pain Respiratory: cough, phlegm (occasional - not colored), short of breath Gastrointestinal: loss of appetite Genitourinary: no symptoms reported Musculoskeletal: no symptoms reported Skin: no symptoms reported Psychiatric/Neurological: No Symptoms Reported (VIKTORIYA MARI MD) All Other Systems Reviewed Negative Unless Noted: Yes (VIKTORIYA MARI MD) Past Kqnjkpd-Uwenxs-Njkceb Hx Patient Social History Tobacco Use?: Yes Tobacco type used: Cigarettes Smoking Status: Current Everyday Smoker Substance use?: No Alcohol Use?: No (VIKTORIYA MARI MD) Immunizations Up To Date PED Vaccines UTD: No First/Initial COVID19 Vaccinat: FEBRUARY 2021 Second COVID19 Vaccination Aron: MARCH 2021 Third COVID19 Vaccination Date: FEBRUARY 2021 (VIKTORIYA MARI MD) Seasonal Allergies Seasonal Allergies: Yes (VIKTORIYA MARI MD) Past Medical History Surgery/Hospitalization HX: Cervical spine, COPD, A-FIB Surgeries: Yes (cervical spine, teeth removal) Breast, Orthopedic, Thyroidectomy Respiratory: Yes Pneumonia, COPD Cardiac: Yes Chronic Edema/Swelling, Hypertension Neurological: Yes (TREMORS) Headaches /Migraines Reproductive Disorders: No Female Reproductive Disorders: Denies Genitourinary: Yes (retention) Bladder Infection Gastrointestinal: Yes (C. difficile colitis) Musculoskeletal: Yes (CERVICAL SPINE SX) Osteoporosis, Chronic Back Pain Endocrine: Yes (BENIGN THYROID TUMOR) Hypothyroidsim HEENT: No Cancer: No Psychosocial: Yes Anxiety Integumentary: No Blood Disorders: No (VIKTORIYA MARI MD) Family Medical History Bladder problems G8 SISTER FH: lung cancer 19 FATHER Thyroid disease 19 MOTHER Cancer (VIKTORIYA MARI MD) Physical Exam Vital Signs - First Documented (VIDHYA ENGLAND DO) Capillary Refill : Less Than 3 Seconds (VIKTORIYA MARI MD) Height: 5'3.00" Weight: 110lbs. 0.0oz. 49.579895is; 17.00 BMI Method:Stated General Appearance: WD/WN, no apparent distress, thin Eyes: Bilateral Eye Normal Inspection, Bilateral Eye PERRL, Bilateral Eye EOMI HEENT: PERRL/EOMI, pharynx normal (slightly dry mucosa) Neck: supple Respiratory: lungs clear, normal breath sounds, no respiratory distress, no accessory muscle use Cardiovascular: tachycardia, irregularly irregular Gastrointestinal: normal bowel sounds, non tender, soft Extremities: normal range of motion, non-tender, no pedal edema, normal capillary refill (2 sec; slightly decreaed skin turgor) Neurologic/Psychiatric: strategic planner II-XII nml as tested, no motor/sensory deficits, alert, normal mood/affect, oriented x 3 Skin: normal color, warm/dry (VIKTORIYA MARI MD) Focused Exam Lactate Level 04/28/22 15:50: Lactic Acid Level 1.64 (VIDHYA ENGLAND DO) Lactic Acid Level Laboratory Tests Test 04/28/22 15:50 Lactic Acid Level 1.64 MMOL/L (0.50-2.00) (VIDHYA ENGLAND DO) Progress/Results/Core Measures Suspected Sepsis SIRS Temperature: Pulse: 120 Respiratory Rate: 14 Laboratory Tests 04/28/22 15:50: White Blood Count 12.5H Blood Pressure 85 /67 Mean: 73 04/28/22 15:50: Lactic Acid Level 1.64 Laboratory Tests 04/28/22 15:50: Creatinine 1.86H, INR Comment 1.3, Platelet Count 448H, Total Bilirubin 0.2 (VIKTORIYA MARI MD) Results/Orders Lab Results Laboratory Tests Test 04/28/22 15:50 04/28/22 17:25 Range/Units White Blood Count 12.5 H 4.3-11.0 10^3/uL Red Blood Count 4.08 3.80-5.11 10^6/uL Hemoglobin 12.2 11.5-16.0 g/dL Hematocrit 38 35-52 % Mean Corpuscular Volume 92 80-99 fL Mean Corpuscular Hemoglobin 30 25-34 pg Mean Corpuscular Hemoglobin Concent 33 32-36 g/dL Red Cell Distribution Width 14.1 10.0-14.5 % Platelet Count 448 H 130-400 10^3/uL Mean Platelet Volume 10.9 9.0-12.2 fL Immature Granulocyte % (Auto) 2 % Neutrophils (%) (Auto) 56 42-75 % Lymphocytes (%) (Auto) 23 12-44 % Monocytes (%) (Auto) 11 0-12 % Eosinophils (%) (Auto) 7 0-10 % Basophils (%) (Auto) 1 0-10 % Neutrophils # (Auto) 7.1 1.8-7.8 10^3/uL Lymphocytes # (Auto) 2.9 1.0-4.0 10^3/uL Monocytes # (Auto) 1.3 H 0.0-1.0 10^3/uL Eosinophils # (Auto) 0.9 H 0.0-0.3 10^3/uL Basophils # (Auto) 0.1 0.0-0.1 10^3/uL Immature Granulocyte # (Auto) 0.3 H 0.0-0.1 10^3/uL Prothrombin Time 16.1 H 12.2-14.7 SEC INR Comment 1.3 0.8-1.4 Activated Partial Thromboplast Time 37 H 24-35 SEC Sodium Level 138 135-145 MMOL/L Potassium Level 4.9 3.6-5.0 MMOL/L Chloride Level 103 98-107 MMOL/L Carbon Dioxide Level 17 L 21-32 MMOL/L Anion Gap 18 H 5-14 MMOL/L Blood Urea Nitrogen 37 H 7-18 MG/DL Creatinine 1.86 H 0.60-1.30 MG/DL Estimat Glomerular Filtration Rate 28 BUN/Creatinine Ratio 20 Glucose Level 87 70-105 MG/DL Lactic Acid Level 1.64 0.50-2.00 MMOL/L Calcium Level 10.5 H 8.5-10.1 MG/DL Corrected Calcium 10.7 H 8.5-10.1 MG/DL Total Bilirubin 0.2 0.1-1.0 MG/DL Aspartate Amino Transf (AST/SGOT) 16 5-34 U/L Alanine Aminotransferase (ALT/SGPT) 9 0-55 U/L Alkaline Phosphatase 43 40-136 U/L C-Reactive Protein High Sensitivity 2.07 H 0.00-0.50 MG/DL Total Protein 6.9 6.4-8.2 GM/DL Albumin 3.8 3.2-4.5 GM/DL Procalcitonin 0.09 <0.10 NG/ML SARS-CoV-2 RNA (RT-PCR) Not Detected Not Detecte Urine Color YELLOW Urine Clarity CLEAR Urine pH 6.0 5-9 Urine Specific Watts 1.020 1.016-1.022 Urine Protein NEGATIVE NEGATIVE Urine Glucose (UA) NEGATIVE NEGATIVE Urine Ketones NEGATIVE NEGATIVE Urine Nitrite NEGATIVE NEGATIVE Urine Bilirubin NEGATIVE NEGATIVE Urine Urobilinogen 0.2 < = 1.0 MG/DL Urine Leukocyte Esterase 2+ H NEGATIVE Urine RBC (Auto) NEGATIVE NEGATIVE Urine RBC RARE /HPF Urine WBC 50-100 H /HPF Urine Squamous Epithelial Cells 0-2 /HPF Urine Crystals NONE /LPF Urine Bacteria TRACE /HPF Urine Casts NONE /LPF Urine Mucus NEGATIVE /LPF Urine Culture Indicated YES (VIDHYA ENGLAND DO) Vital Signs/I&O 04/28/22 04/28/22 15:45 15:45 Temp 36.8 Pulse 120 Resp 14 B/P (MAP) 85/67 (73) Pulse Ox 100 O2 Delivery Nasal Cannula Nasal Cannula O2 Flow Rate 5.00 5.00 5.00 (VIDHYA ENGLAND DO) Vital Signs/I&O Capillary Refill : Less Than 3 Seconds (VIKTORIYA MARI MD) Blood Pressure Mean: 73 Progress Note : Time: 17:13 Progress Note I was reviewing the patient's medical record as well as her home medications. The patient is supposed to be on midodrine 2.5 mg 3 times daily. She did and her did indicate to me that she did not take any of her morning medications today. I am fairly confident that because she has not taken her midodrine this is why her blood pressure is low and it does not reflect sepsis as the patient clinically does not appear septic. I am giving her a second liter of fluids, will give her one of her 2.5 mg midodrine's. Anticipate that this will improve her blood pressure. She is still without any respiratory distress satting fine on her normal 3-1/2 L of oxygen. Chest x-ray is pending as is urinalysis. Her CBC looks fairly normal. Her creatinine is creeping up, fairly significant change coordinator recent months. I suspect that IV fluids will be beneficial to her. She was put on Levaquin on April 23 500 mg x 7 days. At this time resting comfortably. (VIKTORIYA MARI MD) Progress Note : Progress Note ASSUMED CARE OF PT AT SHIFT CHANGE HAVE REVIEWED ALL TEST RESULTS WITH PT AND PT HAS 2 MORE DAYS OF LEVAQUIN, AND BASED ON HER MULTIPLE ANTIBIOTIC ALLERGIES, AND HISTORY OF CHRONIC UTI'S, WILL HAVE PT CONTINUE THIS UNTIL CULTURES RESULTS HAVE COME BACK. PT IS COMPLETELY ASYMPTOMATIC REGARDING UTI SYMPTOMS PT FEELS COMPLETELY FINE NOW AND IS ANXIOUS TO GO HOME, AND FEELS COMFORTABLE GOING HOME VITALS ARE STABLE, WITH O2 SAT 100% ON HER NORMAL O2/NC RATE, HER BP IS > 100 SYSTOLIC, HR IN 80'S, NO DYSPNEA OR WHEEZING PT HAS NO RESPIRATORY SYMPTOMS PT HAS NO SYMPTOMS OF ANY KIND AT THIS TIME AND STATES SHE FEELS GREAT. (VIDHYA ENGLAND DO) Diagnostic Imaging Comments CXR--PER RADIOLOGIST REPORT AT 1757 FINDINGS: Old healed rib deformities, chronic. Air trapping and COPD, chronic. There is reduction in right pleural fluid and improved expansion of the infrahilar right lower lobe with no adverse development. IMPRESSION: Improvements in right thoracic pleural-parenchymal basilar opacity with background COPD and old rib deformities, chronic. No adverse interval development. Reviewed: Reviewed by Me (VIDHYA ENGLAND DO) Departure Impression Primary Impression: UTI (lower urinary tract infection) Additional Impressions: Dehydration COPD (chronic obstructive pulmonary disease) Disposition: HOME, SELF-CARE Condition: Improved Departure-Patient Inst. Decision time for Depature: 18:03 (VIDHYA ENGLAND DO) Referrals: MERVAT SERNA MD (PCP/Family) Primary Care Physician Patient Instructions: Chronic Obstructive Pulmonary Disease (COPD) (DC), Dehydration, Adult (DC), Urinary Tract Infection, Adult (DC) Add. Discharge Instructions: FINISH LEVAQUIN INCREASE YOUR FLUID INTAKE--DRINK ENOUGH SO YOU ARE URINATING EVERY 2-3 HOURS WHILE AWAKE CONTINUE YOUR REGULAR MEDICATIONS PRESCRIBED FOLLOW UP WITH DR. SERNA'S OFFICE ON FRIDAY FOR FURTHER CARE--CALL IN THE MORNING TO SCHEDULE APPOINTMENT All discharge instructions reviewed with patient and/or family. Voiced unders tanding. VIKTORIYA MARI MD Apr 28, 2022 16:49 VIDHYA ENGLAND DO Apr 28, 2022 17:59
[2022-04-28] MEDS ORDERED: NS IV 1000 ML 1,000 ML IV SCH (17:00)
[2022-04-28] MEDS ORDERED: MIDODRINE 10 MG (PROAMATINE) TAB PO STA (17:12)
[2022-04-28 17:31] LABS: BILIRUBIN,URINE NEGATIVE (NEGATIVE); CLARITY,URINE CLEAR; COLOR,URINE YELLOW; GLUCOSE, URINE (UA) NEGATIVE (NEGATIVE); KETONES,URINE NEGATIVE (NEGATIVE); LEUKOCYTE ESTERASE ,URINE 2+ (NEGATIVE); NITRITE,URINE NEGATIVE (NEGATIVE); PROTEIN,URINE NEGATIVE (NEGATIVE)
[2022-04-28 17:41] LABS: BACTERIA,URINE TRACE /HPF; RBC,URINE RARE /HPF; SQUAMOUS EPITHELIAL CELL,UR 0-2 /HPF; WBC,URINE 50-100 /HPF
--- NOTE | 2022-04-28 17:54 | Diagnostic Imaging Report ---
INDICATION: Shortness of air. COMPARISON: 03/27/2022. FINDINGS: Old healed rib deformities, chronic. Air trapping and COPD, chronic. There is reduction in right pleural fluid and improved expansion of the infrahilar right lower lobe with no adverse development. IMPRESSION: Improvements in right thoracic pleural-parenchymal basilar opacity with background COPD and old rib deformities, chronic. No adverse interval development. Dictated by: Dictated on workstation # [id number]
[2022-04-28 18:13] VITALS: BP 102/72
== END 2022-04-28 18:13 | disposition home or self-care (01) ==
LOC: EDUNIT# 15:45 → ER 15:46
DX: J44.9 Chronic obstructive pulmonary disease, unspecified (principal); N39.0 Urinary tract infection, site not specified; E86.0 Dehydration; F17.210 Nicotine dependence, cigarettes, uncomplicated; Z99.81 Dependence on supplemental oxygen; Z20.822 Contact with and (suspected) exposure to COVID-19; Z28.310 Unvaccinated for COVID-19
CPT/HCPCS: 36415; 71045; 80053; 81000; 83605; 84145; 85025; 85610; 85730; 86141; 87040; 87088; 87636

== ENCOUNTER 2022-06-11 19:47 | Outpatient (CLI) | payer MEDICARE | END 2022-06-12 06:48 | disposition home or self-care (01) | LOC: SLEEP 19:47 | PROVIDERS: ATTEND Otolaryngology Otolaryngology/Facial Plastic Surgery | DX: G47.33 Obstructive sleep apnea (adult) (pediatric) (principal); J44.9 Chronic obstructive pulmonary disease, unspecified | CPT/HCPCS: 95811 ==

== ENCOUNTER 2022-07-17 19:21 | Outpatient (CLI) | payer MEDICARE ==
[~2022-07-17 19:21] MED LIST changes: +LEVO250T66 PO; -LVF250T PO; +POTA-177 PO; -POTA10TA37 PO
== END 2022-07-18 06:10 | disposition home or self-care (01) ==
LOC: SLEEP 19:21
PROVIDERS: ATTEND Otolaryngology Otolaryngology/Facial Plastic Surgery
DX: G47.33 Obstructive sleep apnea (adult) (pediatric) (principal); G47.31 Primary central sleep apnea
CPT/HCPCS: 95811

== ENCOUNTER 2023-03-26 15:46 | Emergency (ER) | payer MEDICARE ==
[~2023-03-26] VITALS: Ht 157 cm; Wt 39.9 kg
[~2023-03-26 15:46] MED LIST changes: +ALBU8.5H6 IH; +DILT120C71 PO; -DILT120C85 PO; -DOXY-311; +DOXY-444; -RT-ALBUINH IH
--- NOTE | 2023-03-26 15:59 | ED General ---
General Chief Complaint: Respiratory Problems Stated Complaint: SOB History of Present Illness Date Seen by Provider: Mar 26, 2023 Time Seen by Provider: 15:59 Initial Comments 78-year-old female presents with shortness of breath x2 days. Patient reports that she has some increasing shortness of breath for 2 days, has a history of COPD is normally on 5 L nasal cannula. Patient reports that her heart rate seemed a bit off. That she is had mild increase in cough. Allergies and Home Medications Allergies Coded Allergies: nitrofurantoin (Verified Allergy, Severe, RASH, 12/10/15) ITCHING AND RASH sulfamethoxazole (Verified Allergy, Severe, RASH, 12/10/15) ITCHING AND RASH trimethoprim (Verified Allergy, Severe, RASH, 12/10/15) ITCHING AND RASH azithromycin (Verified Allergy, Unknown, 08/14/14) cefixime (Verified Allergy, Unknown, 08/14/14) Patient Home Medication List Home Medication List Reviewed: Yes Acetaminophen (Tylenol) 325 Mg Capsule, 325-650 MG PO Q8H PRN for PAIN-MILD (1- 4), (Reported) Entered as Reported by: ZORAN BUTT on 06/14/21 0927 Albuterol Sulfate (Ventolin Hfa) 1 Puff Puff, 2 PUFF IH Q4H PRN for WHEEZING, (Reported) Entered as Reported by: JULIAN ALVARADO on 11/04/19 1241 Albuterol Sulfate (Albuterol Sulfate) 2.5 Mg/3 Ml (0.083 %) Vial.neb, 2.5 MG NEB DAILY, (Reported) Entered as Reported by: ZORAN BUTT on 03/27/22 1110 Alprazolam (Alprazolam) 0.5 Mg Tablet, 0.25 MG PO HS, (Reported) Entered as Reported by: ZORAN BUTT on 03/27/22 1110 Apixaban (Eliquis) 5 Mg Tablet, 5 MG PO BID, (Reported) Entered as Reported by: ZORAN BUTT on 03/27/22 1110 Calcium Carbonate (Calcium) 600 Mg Tablet, 600 MG PO DAILY, (Reported) Entered as Reported by: JULIAN ALVARADO on 11/04/19 1241 Cholecalciferol (Vitamin D3) (Vitamin D3) 50 Mcg Capsule, 50 MCG PO DAILY, (Reported) Entered as Reported by: JULIAN ALVARADO on 11/04/19 1241 Citalopram Hydrobromide (Citalopram HBr) 20 Mg Tablet, 20 MG PO HS, (Reported) Entered as Reported by: EVIN HOLLAND on 04/09/21 1305 Ergocalciferol (Vitamin D2) (Vitamin D2) 1,250 Mcg (27301 Unit) Capsule, 1,250 MCG PO SUN, (Reported) Entered as Reported by: ZORAN BUTT on 03/27/22 111 Famotidine (Famotidine) 20 Mg Tablet, 20 MG PO DAILY, (Reported) Entered as Reported by: ZORAN BUTT on 03/27/22 111 Formoterol Fumarate (Formoterol Fumarate) 20 Mcg/2 Ml Vial.neb, 2 ML NEB DAILY, (Reported) Entered as Reported by: ZORAN BUTT on 03/27/22 111 Hydrocodone/Acetaminophen (Hydrocodone-Acetamin 5-325 mg) 5 Mg-325 Mg Tablet, 5 MG PO Q6H PRN for PAIN-MODERATE (5-7), (Reported) Entered as Reported by: ZORAN UBTT on 03/27/22 111 Ipratropium Malone (Ipratropium Malone) 0.2 Mg/1 Ml Solution, 0.2 MG IH TID PRN for SHORTNESS OF BREATH, (Reported) Entered as Reported by: JULIAN ALVARADO on 11/04/19 1241 Midodrine HCl (Midodrine HCl) 2.5 Mg Tablet, 2.5 MG PO TID, (Reported) Entered as Reported by: ZORAN BUTT on 03/27/22 111 Mirtazapine (Mirtazapine) 15 Mg Tablet, 15 MG PO HS, (Reported) Entered as Reported by: ZORAN BUTT on 03/27/22 111 Ondansetron (Ondansetron Odt) 4 Mg Tab.rapdis, 4 MG PO Q6H PRN for NAUSEA/VOMITING-1ST LINE, (Reported) Entered as Reported by: ZORAN BUTT on 03/27/22 111 Potassium Chloride (K-Tab ER) 10 Meq Tablet.er, 10 MEQ PO DAILY, (Reported) Entered as Reported by: ZORAN BUTT on 06/14/21 0927 Prednisone (Prednisone) 10 Mg Tab.ds.pk, 10 MG PO DAILY Prescribed by: JAYCOB FRIEDMAN on 03/28/22 0906 Propranolol HCl (Propranolol HCl) 20 Mg Tablet, 20 MG PO DAILY, (Reported) Entered as Reported by: ZORAN BUTT on 03/27/22 1110 Thyroid,Pork (Irwin Thyroid) 60 Mg Tablet, 120 MG PO DAILY, (Reported) Entered as Reported by: ZORAN BUTT on 04/12/21 1029 Review of Systems Review of Systems Constitutional: see HPI EENTM: no symptoms reported Respiratory: cough, short of breath Cardiovascular: no symptoms reported Gastrointestinal: no symptoms reported Genitourinary: no symptoms reported Musculoskeletal: no symptoms reported Skin: no symptoms reported Past Vmxusnl-Qrabto-Bleujc Hx Patient Social History Tobacco Use?: Yes Tobacco type used: Cigarettes Smoking Status: Current Everyday Smoker Substance use?: No Alcohol Use?: No Pt feels they are or have been: No Immunizations Up To Date PED Vaccines UTD: No First/Initial COVID19 Vaccinat: FEBRUARY 2021 Second COVID19 Vaccination Aron: MARCH 2021 Third COVID19 Vaccination Date: FEBRUARY 2021 Seasonal Allergies Seasonal Allergies: Yes Past Medical History Surgery/Hospitalization HX: Cervical spine, COPD, A-FIB Surgeries: Yes (cervical spine, teeth removal) Breast, Orthopedic, Thyroidectomy Respiratory: Yes Pneumonia, COPD Cardiac: Yes Chronic Edema/Swelling, Hypertension Neurological: Yes (TREMORS) Headaches /Migraines Reproductive Disorders: No Female Reproductive Disorders: Denies Genitourinary: Yes (retention) Bladder Infection Gastrointestinal: Yes (C. difficile colitis) Musculoskeletal: Yes (CERVICAL SPINE SX) Osteoporosis, Chronic Back Pain Endocrine: Yes (BENIGN THYROID TUMOR) Hypothyroidsim HEENT: No Cancer: No Psychosocial: Yes Anxiety Integumentary: No Blood Disorders: No Family Medical History Bladder problems G8 SISTER FH: lung cancer 19 FATHER Thyroid disease 19 MOTHER Cancer Physical Exam Vital Signs Vital Signs - First Documented 03/26/23 03/26/23 15:51 16:07 Temp 36.8 Pulse 98 Resp 16 B/P (MAP) 107/70 (82) Pulse Ox 98 O2 Delivery Nasal Cannula O2 Flow Rate 5.00 Capillary Refill : Height, Weight, BMI Height: 5'3.00" Weight: 110lbs. 0.0oz. [id number]; 17.00 BMI Method:Stated General Appearance: Chronically ill, Other (frail ) Respiratory: Decreased Breath Sounds Cardiovascular: Tachycardia Neurologic/Psychiatric: Alert, Oriented x3, No Motor/Sensory Deficits Skin: Normal Color, Warm/Dry Progress/Results/Core Measures Suspected Sepsis SIRS Temperature: Pulse: Respiratory Rate: Laboratory Tests 03/26/23 16:07: White Blood Count 15.1H Blood Pressure / Mean: Laboratory Tests 03/26/23 16:07: Creatinine 1.35H, Platelet Count 318, Total Bilirubin 0.6 Results/Orders Lab Results Laboratory Tests Test 03/26/23 16:07 Range/Units White Blood Count 15.1 H 4.3-11.0 10^3/uL Red Blood Count 3.76 L 3.80-5.11 10^6/uL Hemoglobin 11.2 L 11.5-16.0 g/dL Hematocrit 35 35-52 % Mean Corpuscular Volume 94 80-99 fL Mean Corpuscular Hemoglobin 30 25-34 pg Mean Corpuscular Hemoglobin Concent 32 32-36 g/dL Red Cell Distribution Width 14.6 H 10.0-14.5 % Platelet Count 318 130-400 10^3/uL Mean Platelet Volume 10.5 9.0-12.2 fL Immature Granulocyte % (Auto) 1 % Neutrophils (%) (Auto) 72 42-75 % Lymphocytes (%) (Auto) 17 12-44 % Monocytes (%) (Auto) 9 0-12 % Eosinophils (%) (Auto) 1 0-10 % Basophils (%) (Auto) 0 0-10 % Neutrophils # (Auto) 10.9 H 1.8-7.8 10^3/uL Lymphocytes # (Auto) 2.6 1.0-4.0 10^3/uL Monocytes # (Auto) 1.3 H 0.0-1.0 10^3/uL Eosinophils # (Auto) 0.2 0.0-0.3 10^3/uL Basophils # (Auto) 0.0 0.0-0.1 10^3/uL Immature Granulocyte # (Auto) 0.1 0.0-0.1 10^3/uL Neutrophils % (Manual) 72 % Lymphocytes % (Manual) 23 % Monocytes % (Manual) 5 % Hypersegmented Neutrophils SLIGHT Blood Morphology Comment NORMAL Sodium Level 141 135-145 MMOL/L Potassium Level 3.6 3.6-5.0 MMOL/L Chloride Level 100 98-107 MMOL/L Carbon Dioxide Level 25 21-32 MMOL/L Anion Gap 16 H 5-14 MMOL/L Blood Urea Nitrogen 36 H 7-18 MG/DL Creatinine 1.35 H 0.60-1.30 MG/DL Estimat Glomerular Filtration Rate 41 BUN/Creatinine Ratio 27 Glucose Level 111 H 70-105 MG/DL Calcium Level 10.1 8.5-10.1 MG/DL Corrected Calcium 10.3 H 8.5-10.1 MG/DL Magnesium Level 1.7 1.6-2.4 MG/DL Total Bilirubin 0.6 0.1-1.0 MG/DL Aspartate Amino Transf (AST/SGOT) 12 5-34 U/L Alanine Aminotransferase (ALT/SGPT) 9 0-55 U/L Alkaline Phosphatase 54 40-136 U/L B-Type Natriuretic Peptide 157.8 H <100.0 PG/ML Total Protein 6.9 6.4-8.2 GM/DL Albumin 3.7 3.2-4.5 GM/DL My Orders Orders - PETERSON,HERB L DO Bnp Veronique (03/26/23 15:59) Cbc With Automated Diff (03/26/23 15:59) Comprehensive Metabolic Panel (03/26/23 15:59) Magnesium (03/26/23 15:59) Ed Iv/Invasive Line Start (03/26/23 15:59) Ns Iv 500 Ml (Sodium Chloride 0.9%) (03/26/23 16:00) Albuterol/Ipra Inhalation Soln (Duoneb I (03/26/23 16:00) Chest 1 View, Ap/Pa Only (03/26/23 15:59) Svn Small Volume Nebulizer (03/26/23 15:59) Methylprednisolone Sod Succ (Solu-Medrol (03/26/23 16:00) Manual Differential (03/26/23 16:07) Albuterol/Ipra Inhalation Soln (Duoneb I (03/26/23 17:15) Svn Small Volume Nebulizer (03/26/23 17:03) Ct Chest W (03/26/23 17:03) Medications Given in ED Current Medications Medications Dose Ordered Sig/Chai Route Start Time Stop Time Status Last Admin Dose Admin Albuterol/ Ipratropium 3 ml ONCE ONCE INH 03/26/23 16:00 03/26/23 16:03 DC 03/26/23 16:15 3 ML Methylprednisolone Sodium Succinate 40 mg ONCE ONCE IV 03/26/23 16:00 03/26/23 16:03 DC 03/26/23 16:13 40 MG Sodium Chloride 500 ml @ 0 mls/hr Q0M ONCE IV 03/26/23 16:00 03/26/23 16:03 DC 03/26/23 16:13 0 MLS/HR Vital Signs/I&O 03/26/23 03/26/23 03/26/23 15:51 16:07 16:09 Temp 36.8 Pulse 98 Resp 16 B/P (MAP) 107/70 (82) Pulse Ox 98 O2 Delivery Nasal Cannula Nasal Cannula O2 Flow Rate 5.00 5.00 Capillary Refill : Progress Note : Progress Note Patient diagnostic studies were ordered reviewed and interpreted by me. She has a slight elevation of her white count and some mild elevated creatinine likely due to some mild dehydration. Patient was given some IV fluids and a DuoNeb. She felt significantly better. Patient's oxygen in the ER was 97 to 100% on her baseline home O2. Patient to be treated with doxycycline and couple days of steroids. Patient's chest x-ray was ordered reviewed, with initial interpretation by me with final interpretation per radiology report. Radiologist recommended CT with contrast to further evaluate right-sided volume loss. Discussed with patient. However at this time she would like to forego that CT. She has an appointment tomorrow with her primary care provider and reports that she will bring it up with her and they can determine if they want to do further CT and evaluation. Patient is requesting to be discharged home since she is feeling a lot better. She will get 1 more DuoNeb prior to discharge. She is stable upon discharge Diagnostic Imaging Diagonstic Imaging: Xray Plain Films/CT/US/NM/MRI: chest Comments Date of Exam:03/26/23 CHEST 1 VIEW, AP/PA ONLY EXAMINATION: Chest 1 view. HISTORY: Short of air. COMPARISON: 04/28/2022. FINDINGS: There is volume loss in the right hemithorax with a right base airspace opacity. The medial right upper zone airspace opacity. No pleural effusion or pneumothorax. Heart size is normal. IMPRESSION: Right-sided volume loss with right upper and lower zone airspace opacities. Findings may represent pneumonia. Consider chest CT with contrast to evaluate for a central obstructing lesion in the setting of volume loss. Reviewed: Reviewed by Me, Reviewed/Discussed Departure Impression Primary Impression: COPD exacerbation Disposition: 01 HOME, SELF-CARE Condition: Stable Departure-Patient Inst. Referrals: MERVAT SERNA MD (PCP/Family) Primary Care Physician Patient Instructions: COPD Exacerbation, Adult ED, How to Use a Nebulizer ED, How to use your metered dose inhaler (adults) Add. Discharge Instructions: Please keep your appointment with your primary care provider tomorrow. Please bring up your x-ray recommendations and asked her to review them. All discharge instructions reviewed with patient and/or family. Voiced understanding. Scripts Prednisone (Prednisone) 20 Mg Tab 20 MG PO DAILY, #4 TAB Take 3 tabs(60mg)daily, decrease by 1/2 tab(10mg)daily. Prov: HERB PETERSON DO 03/26/23 Doxycycline Hyclate (Doxycycline Hyclate) 100 Mg Tablet 100 MG PO BID, #20 TAB 0 Refills Prov: HERB PETERSON DO 03/26/23 HERB PETERSON DO Mar 26, 2023 15:59
[2023-03-26] MEDS ORDERED: NS IV 500 ML 500 ML IV ONE (16:00)
[2023-03-26] MEDS ORDERED: methylPREDNISolone 40 MG/ML (Solu-MEDROL) VIAL IV ONE (16:00)
[2023-03-26] MEDS ORDERED: RT-ALBUTEROL/IPRATROPIUM 3 ML (DUONEB) VIAL INH ONE ×2 (16:00→17:15)
[2023-03-26 16:14] LABS: BASOPHILS % (AUTO) 0 % (0-10); EOSINOPHILS # (AUTO) 0.2 10^3/uL (0.0-0.3); EOSINOPHILS % (AUTO) 1 % (0-10); HEMATOCRIT 35 % (35-52); HEMOGLOBIN 11.2 g/dL (11.5-16.0); LYMPHOCYTES # (AUTO) 2.6 10^3/uL (1.0-4.0); LYMPHOCYTES % (AUTO) 17 % (12-44); MEAN CORPUSCULAR HEMOGLOBIN 30 pg (25-34); MEAN CORPUSCULAR HGB CONC 32 g/dL (32-36); MEAN CORPUSCULAR VOLUME 94 fL (80-99); MEAN PLATELET VOLUME 10.5 fL (9.0-12.2); MONOCYTES # (AUTO) 1.3 10^3/uL (0.0-1.0); MONOCYTES % (AUTO) 9 % (0-12); NEUTROPHILS # (AUTO) 10.9 10^3/uL (1.8-7.8); NEUTROPHILS % (AUTO) 72 % (42-75); PLATELET COUNT 318 10^3/uL (130-400); WHITE BLOOD COUNT 15.1 10^3/uL (4.3-11.0)
[2023-03-26 16:22] LABS: ALBUMIN 3.7 GM/DL (3.2-4.5)
[2023-03-26 16:23] LABS: POTASSIUM 3.6 MMOL/L (3.6-5.0)
[2023-03-26 16:24] LABS: CALCIUM 10.1 MG/DL (8.5-10.1)
[2023-03-26 16:25] LABS: TOTAL PROTEIN 6.9 GM/DL (6.4-8.2)
[2023-03-26 16:27] LABS: BILIRUBIN,TOTAL 0.6 MG/DL (0.1-1.0)
[2023-03-26 16:28] LABS: CREATININE SERUM 1.35 MG/DL (0.60-1.30)
[2023-03-26 16:31] LABS: MAGNESIUM 1.7 MG/DL (1.6-2.4)
[2023-03-26 16:54] LABS: HYPERSEGMENTED NEUT SLIGHT; LYMPHOCYTES % (MANUAL) 23 %; MONOCYTES % (MANUAL) 5 %; NEUTROPHILS % (MANUAL) 72 %; RBC MORPH NORMAL
--- NOTE | 2023-03-26 16:56 | Diagnostic Imaging Report ---
EXAMINATION: Chest 1 view. HISTORY: Short of air. COMPARISON: 04/28/2022. FINDINGS: There is volume loss in the right hemithorax with a right base airspace opacity. The medial right upper zone airspace opacity. No pleural effusion or pneumothorax. Heart size is normal. IMPRESSION: Right-sided volume loss with right upper and lower zone airspace opacities. Findings may represent pneumonia. Consider chest CT with contrast to evaluate for a central obstructing lesion in the setting of volume loss. Dictated by: Dictated on workstation # [id number]
[2023-03-26] MEDS ORDERED: PRD20T PO (17:12)
[2023-03-26] MEDS ORDERED: DOXY100T2 PO (17:12)
[2023-03-26] MEDS ORDERED: IOHEXOL 350 MG/ML 100 ML (OMNIPAQUE 350) VIAL IV ONE (17:15)
[2023-03-26] MEDS ORDERED: NS 100 ML (IVPB) BAG IV ONE (17:15)
[2023-03-26] MEDS ORDERED: HOLD METFORMIN - RECEIVED CONTRAST 20 ML VIAL IV SCH (17:15)
[2023-03-26 17:42] VITALS: BP 102/62
== END 2023-03-26 17:42 | disposition home or self-care (01) ==
LOC: EDUNIT# 15:46 → ER 15:47
DX: J44.9 Chronic obstructive pulmonary disease, unspecified (principal); R79.89 Other specified abnormal findings of blood chemistry; F17.210 Nicotine dependence, cigarettes, uncomplicated; Z88.2 Allergy status to sulfonamides; Z88.1 Allergy status to other antibiotic agents
CPT/HCPCS: 36415; 71045; 80053; 83735; 83880; 85007; 85027

== ENCOUNTER → 2023-04-03 | Outpatient (CLI) | payer MEDICARE ==
--- NOTE | 2023-04-03 16:45 | Diagnostic Imaging Report ---
EXAMINATION: Chest 2 view HISTORY: Pneumonia COMPARISON: 03/26/2023 FINDINGS: The lungs are hyperinflated without edema or pneumonia. Previously seen right base opacity has improved. No pleural effusion or pneumothorax. Heart size is normal. IMPRESSION: 1. Clear lungs. Dictated by: Dictated on workstation # [id number]
== END ==
LOC: RAD 16:11
PROVIDERS: ATTEND Physician Assistant
DX: J18.9 Pneumonia, unspecified organism (principal); J44.1 Chronic obstructive pulmonary disease with (acute) exacerbation
CPT/HCPCS: 71046

== ENCOUNTER 2023-06-20 13:50 | Inpatient (IN) | payer MEDICARE ==
[~2023-06-20] VITALS: Ht 157 cm; Wt 47.0 kg
[~2023-06-20 13:50] MED LIST changes: +POTA-185 PO; -POTA10TA PO
[2023-06-20] MEDS ORDERED: NS IV 500 ML 500 ML IV ONE ×2 (14:15→15:45)
[2023-06-20 14:20] LABS: BASOPHILS % (AUTO) 0 % (0-10); EOSINOPHILS # (AUTO) 0.5 10^3/uL (0.0-0.3); EOSINOPHILS % (AUTO) 4 % (0-10); HEMATOCRIT 37 % (35-52); HEMOGLOBIN 11.4 g/dL (11.5-16.0); LYMPHOCYTES # (AUTO) 3.6 X 10^3 (1.0-4.0); LYMPHOCYTES % (AUTO) 27 % (12-44); MEAN CORPUSCULAR HEMOGLOBIN 30 pg (25-34); MEAN CORPUSCULAR HGB CONC 31 g/dL (32-36); MEAN CORPUSCULAR VOLUME 95 fL (80-99); MEAN PLATELET VOLUME 10.2 fL (9.0-12.2); MONOCYTES % (AUTO) 8 % (0-12); NEUTROPHILS # (AUTO) 8.1 X 10^3 (1.8-7.8); NEUTROPHILS % (AUTO) 61 % (42-75); PLATELET COUNT 329 10^3/uL (130-400); WHITE BLOOD COUNT 13.2 10^3/uL (4.3-11.0)
--- NOTE | 2023-06-20 14:24 | ED Respiratory ---
General Chief Complaint: Respiratory Problems Stated Complaint: SOB Nursing Triage Note: PT TO [facility] WITH C/O SOB SINCE WAKING UP THIS MORNING. PT CHRONIC ON 4L Source: patient Exam Limitations: no limitations History of Present Illness Date Seen by Provider: Jun 20, 2023 Time Seen by Provider: 13:57 Initial Comments Patient here with report of increasing oxygen requirement at home and increasing shortness of breath. States that she gets very fast heart rate anytime she moves. She has had cough with increased sputum production. Denies fevers but does have chills. Denies sore throat or runny nose. Denies dysuria or diarrhea. She has had longstanding problems with oxygen requirements due to COPD. She has had history of A-fib and is on Eliquis. Reports taking her medication as directed. She did albuterol treatment today which helped a little bit. She was having difficulty getting to the bathroom due to profound jasper rtness of breath and then tachycardia. States that oxygen is normally in the 90s when she is resting on her O2 and usually does okay but over the last week its gotten much worse. Timing/Duration: week Severity: moderate Prior Episodes/Possible Cause: occasional episodes Modifying Factors: Worse With Activity; Improves With Albuterol Nebulizer, Improves With Oxygen Associated Symptoms: No chest pain/soreness; cough; No headache; nasal congestion, shortness of breath; No sinus infection, No sore throat; wheezing Allergies and Home Medications Allergies Coded Allergies: nitrofurantoin (Verified Allergy, Severe, RASH, 12/10/15) ITCHING AND RASH sulfamethoxazole (Verified Allergy, Severe, RASH, 12/10/15) ITCHING AND RASH trimethoprim (Verified Allergy, Severe, RASH, 12/10/15) ITCHING AND RASH azithromycin (Verified Allergy, Unknown, 08/14/14) cefixime (Verified Allergy, Unknown, 08/14/14) Patient Home Medication List Home Medication List Reviewed: Yes Acetaminophen (Tylenol) 325 Mg Capsule, 325-650 MG PO Q8H PRN for PAIN-MILD (1- 4), (Reported) Entered as Reported by: ZORAN BUTT on 06/14/21 7619 Albuterol Sulfate (Ventolin Hfa) 1 Puff Puff, 2 PUFF IH Q4H PRN for WHEEZING, (Reported) Entered as Reported by: JULIAN ALVARADO on 11/04/19 1241 Albuterol Sulfate (Albuterol Sulfate) 2.5 Mg/3 Ml (0.083 %) Vial.neb, 2.5 MG NEB DAILY, (Reported) Entered as Reported by: ZORAN BUTT on 03/27/221109 Last Action: Last Taken Edited Alprazolam (Alprazolam) 0.5 Mg Tablet, 0.25 MG PO HS, (Reported) Entered as Reported by: ZORAN BUTT on 03/27/221109 Last Action: Last Taken Edited Apixaban (Eliquis) 5 Mg Tablet, 5 MG PO BID, (Reported) Entered as Reported by: ZORAN BUTT on 03/27/221109 Last Action: Last Taken Edited Calcium Carbonate (Calcium) 600 Mg Tablet, 600 MG PO DAILY, (Reported) Entered as Reported by: JULIAN ALVARADO on 11/04/19 1241 Last Action: Last Taken Edited Cholecalciferol (Vitamin D3) (Vitamin D3) 50 Mcg Capsule, 50 MCG PO DAILY, (Reported) Entered as Reported by: JULIAN ALVARADO on 11/04/19 1241 Last Action: Last Taken Edited Citalopram Hydrobromide (Citalopram HBr) 20 Mg Tablet, 20 MG PO HS, (Reported) Entered as Reported by: EVIN HOLLAND on 04/09/21 1305 Last Action: Last Taken Edited Ergocalciferol (Vitamin D2) (Vitamin D2) 1,250 Mcg (39720 Unit) Capsule, 1,250 MCG PO SUN, (Reported) Entered as Reported by: ZORAN BUTT on 03/27/221109 Last Action: Last Taken Edited Formoterol Fumarate (Formoterol Fumarate) 20 Mcg/2 Ml Vial.neb, 2 ML NEB DAILY, (Reported) Entered as Reported by: ZORAN BUTT on 03/27/221109 Hydrocodone/Acetaminophen (Hydrocodone-Acetamin 5-325 mg) 5 Mg-325 Mg Tablet, 5 MG PO Q6H PRN for PAIN-MODERATE (5-7), (Reported) Entered as Reported by: ZORAN BUTT on 03/27/221109 Last Action: Last Taken Edited Ipratropium [place] (Ipratropium [place]) 0.2 Mg/1 Ml Solution, 0.2 MG IH TID PRN for SHORTNESS OF BREATH, (Reported) Entered as Reported by: JULIAN ALVARADO on 11/04/19 1241 Midodrine HCl (Midodrine HCl) 2.5 Mg Tablet, 2.5 MG PO TID, (Reported) Entered as Reported by: ZORAN BUTT on 03/27/22 1110 Last Action: Last Taken Edited Mirtazapine (Mirtazapine) 15 Mg Tablet, 15 MG PO HS, (Reported) Entered as Reported by: ZORAN BUTT on 03/27/22 1110 Ondansetron (Ondansetron Odt) 4 Mg Tab.rapdis, 4 MG PO Q6H PRN for NAUSEA/VOMITING-1ST LINE, (Reported) Entered as Reported by: ZORAN BUTT on 03/27/22 111 Potassium Chloride (K-Tab ER) 10 Meq Tablet.er, 10 MEQ PO DAILY, (Reported) Entered as Reported by: ZORAN BUTT on 06/14/21 0927 Prednisone (Prednisone) 10 Mg Tab.ds.pk, 10 MG PO DAILY Prescribed by: JAYCOB NAVARRO on 03/28/22 0906 Prednisone (Prednisone) 20 Mg Tab, 20 MG PO DAILY Prescribed by: HERB PETERSON on 03/26/23 1712 Propranolol HCl (Propranolol HCl) 20 Mg Tablet, 20 MG PO DAILY, (Reported) Entered as Reported by: ZORAN BUTT on 03/27/22 1110 Thyroid,Pork ([place] Thyroid) 60 Mg Tablet, 120 MG PO DAILY, (Reported) Entered as Reported by: ZORAN BUTT on 04/12/21 1029 Review of Systems Review of Systems Constitutional: see HPI, chills; No fever EENTM: nose congestion; No throat pain Respiratory: see HPI, short of breath Cardiovascular: No chest pain, No edema Gastrointestinal: No nausea, No vomiting Genitourinary: no symptoms reported Musculoskeletal: muscle weakness Skin: no symptoms reported All Other Systems Reviewed Negative Unless Noted: Yes Past Eqxvgqd-Ryegis-Ilazdp Hx Patient Social History Tobacco Use?: Yes Tobacco type used: Cigarettes Substance use?: No Alcohol Use?: No Pt feels they are or have been: No Immunizations Up To Date PED Vaccines UTD: No First/Initial COVID19 Vaccinat: FEBRUARY 2021 Second COVID19 Vaccination Aron: MARCH 2021 Third COVID19 Vaccination Date: FEBRUARY 2021 Seasonal Allergies Seasonal Allergies: Yes Past Medical History Surgery/Hospitalization HX: Cervical spine, COPD, A-FIB Surgeries: Yes (cervical spine, teeth removal) Breast, Orthopedic, Thyroidectomy Respiratory: Yes Pneumonia, COPD Cardiac: Yes Chronic Edema/Swelling, Hypertension Neurological: Yes (TREMORS) Headaches /Migraines Reproductive Disorders: No Female Reproductive Disorders: Denies Genitourinary: Yes (retention) Bladder Infection Gastrointestinal: Yes (C. difficile colitis) Musculoskeletal: Yes (CERVICAL SPINE SX) Osteoporosis, Chronic Back Pain Endocrine: Yes (BENIGN THYROID TUMOR) Hypothyroidsim HEENT: No Cancer: No Psychosocial: Yes Anxiety Integumentary: No Blood Disorders: No Family Medical History Reviewed Nursing Family Hx Bladder problems G8 SISTER FH: lung cancer 19 FATHER Thyroid disease 19 MOTHER Cancer Physical Exam Vital Signs - First Documented Capillary Refill : Height: 5'3.00" Weight: 110lbs. 0.0oz. 49.802018st; 16.00 BMI Method:Stated General Appearance: WD/WN, no apparent distress HEENT: PERRL/EOMI, pharynx normal Neck: full range of motion, supple Respiratory: respiratory distress; No wheezing Cardiovascular: no murmur, tachycardia Gastrointestinal: non tender, soft Extremities: non-tender, normal inspection Neurologic/Psychiatric: alert, oriented x 3 Skin: normal color, warm/dry Focused Exam Lactate Level 06/20/23 14:08: Lactic Acid Level 3.02*H Lactic Acid Level Laboratory Tests Test 06/20/23 14:08 Lactic Acid Level 3.02 MMOL/L (0.50-2.00) *H Progress/Results/Core Measures Suspected Sepsis SIRS Temperature: Pulse: 99 Respiratory Rate: 20 Laboratory Tests 06/20/23 14:08: White Blood Count 13.2H Blood Pressure 111 /70 Mean: 84 06/20/23 14:08: Lactic Acid Level 3.02*H Laboratory Tests 06/20/23 14:08: Creatinine 1.41H, INR Comment 1.4, Platelet Count 329, Total Bilirubin 0.3 Results/Orders Lab Results Laboratory Tests Test 06/20/23 14:08 06/20/23 15:32 Range/Units White Blood Count 13.2 H 4.3-11.0 10^3/uL Red Blood Count 3.86 3.80-5.11 10^6/uL Hemoglobin 11.4 L 11.5-16.0 g/dL Hematocrit 37 35-52 % Mean Corpuscular Volume 95 80-99 fL Mean Corpuscular Hemoglobin 30 25-34 pg Mean Corpuscular Hemoglobin Concent 31 L 32-36 g/dL Red Cell Distribution Width 13.7 10.0-14.5 % Platelet Count 329 130-400 10^3/uL Mean Platelet Volume 10.2 9.0-12.2 fL Immature Granulocyte % (Auto) 0 % Neutrophils (%) (Auto) 61 42-75 % Lymphocytes (%) (Auto) 27 12-44 % Monocytes (%) (Auto) 8 0-12 % Eosinophils (%) (Auto) 4 0-10 % Basophils (%) (Auto) 0 0-10 % Neutrophils # (Auto) 8.1 H 1.8-7.8 X 10^3 Lymphocytes # (Auto) 3.6 1.0-4.0 X 10^3 Monocytes # (Auto) 1.0 0.0-1.0 X 10^3 Eosinophils # (Auto) 0.5 H 0.0-0.3 10^3/uL Basophils # (Auto) 0.0 0.0-0.1 10^3/uL Immature Granulocyte # (Auto) 0.0 0.0-0.1 10^3/uL Prothrombin Time 16.8 H 12.2-14.7 SEC INR Comment 1.4 0.8-1.4 Activated Partial Thromboplast Time 34 24-35 SEC Sodium Level 145 135-145 MMOL/L Potassium Level 3.5 L 3.6-5.0 MMOL/L Chloride Level 100 98-107 MMOL/L Carbon Dioxide Level 29 21-32 MMOL/L Anion Gap 16 H 5-14 MMOL/L Blood Urea Nitrogen 22 H 7-18 MG/DL Creatinine 1.41 H 0.60-1.30 MG/DL Estimat Glomerular Filtration Rate 39 BUN/Creatinine Ratio 16 Glucose Level 94 70-105 MG/DL Lactic Acid Level 3.02 *H 0.50-2.00 MMOL/L Calcium Level 10.5 H 8.5-10.1 MG/DL Corrected Calcium 10.5 H 8.5-10.1 MG/DL Total Bilirubin 0.3 0.1-1.0 MG/DL Aspartate Amino Transf (AST/SGOT) 13 5-34 U/L Alanine Aminotransferase (ALT/SGPT) 8 0-55 U/L Alkaline Phosphatase 49 40-136 U/L C-Reactive Protein High Sensitivity 1.81 H 0.00-0.50 MG/DL Total Protein 7.2 6.4-8.2 GM/DL Albumin 4.0 3.2-4.5 GM/DL Influenza Type A (RT-PCR) Not Detected Not Detecte Influenza Type B (RT-PCR) Not Detected Not Detecte SARS-CoV-2 RNA (RT-PCR) Not Detected Not Detecte Urine Color YELLOW Urine Clarity CLEAR Urine pH 6.0 5-9 Urine Specific [place] 1.010 L 1.016-1.022 Urine Protein NEGATIVE NEGATIVE Urine Glucose (UA) NEGATIVE NEGATIVE Urine Ketones NEGATIVE NEGATIVE Urine Nitrite NEGATIVE NEGATIVE Urine Bilirubin NEGATIVE NEGATIVE Urine Urobilinogen 0.2 < = 1.0 MG/DL Urine Leukocyte Esterase NEGATIVE NEGATIVE Urine RBC (Auto) NEGATIVE NEGATIVE Urine RBC NONE /HPF Urine WBC NONE /HPF Urine Squamous Epithelial Cells 0-2 /HPF Urine Crystals NONE /LPF Urine Bacteria NEGATIVE /HPF Urine Casts NONE /LPF Urine Mucus NEGATIVE /LPF Urine Culture Indicated CULTURE PENDING My Orders Orders - JIMMY MCKENZIE MD Cbc With Automated Diff (06/20/23 14:04) Comprehensive Metabolic Panel (06/20/23 14:04) Blood Culture (06/20/23 14:04) Sputum Culture (06/20/23 14:04) Urinalysis (06/20/23 14:04) Urine Culture (06/20/23 14:04) Protime With Inr (06/20/23 14:04) Partial Thromboplastin Time (06/20/23 14:04) Chest 1 View, Ap/Pa Only (06/20/23 14:04) Ed Iv/Invasive Line Start (06/20/23 14:04) Vital Signs Adult Sepsis Patie Q15M (06/20/23 14:04) O2 (06/20/23 14:04) Remove Rings In Anticipation O (06/20/23 14:04) Lactic Acid Analyzer (06/20/23 14:04) Influenza A And B By Pcr (06/20/23 14:04) Ed Iv/Invasive Line Start (06/20/23 14:04) Ns Iv 500 Ml (Ns Iv 500 Ml) (06/20/23 14:15) Covid 19 Inhouse Test (06/20/23 14:04) Hs C Reactive Protein (06/20/23 14:04) Dexamethasone Injection (Decadron Injec (06/20/23 15:00) Ipratropium/Albuterol Inh Soln (Ipratrop (06/20/23 15:00) Svn Small Volume Nebulizer (06/20/23 14:50) Ekg Tracing (06/20/23 15:18) Diltiazem Injection (Diltiazem Injection (06/20/23 15:45) Diltiazem Drip Pre-Mix (Diltiazem Drip P (06/20/23 15:45) Ns Iv 500 Ml (Ns Iv 500 Ml) (06/20/23 15:45) Ns Iv 500 Ml (Ns Iv 500 Ml) (06/20/23 15:39) Code/Resuscitation (06/20/23 16:04) Ed Admission (Communication) (06/20/23 16:04) Medications Given in ED Current Medications Medications Dose Ordered Sig/Chai Route Start Time Stop Time Status Last Admin Dose Admin Albuterol/ Ipratropium 3 ml ONCE ONCE INH 06/20/23 15:00 06/20/23 15:01 DC 06/20/23 15:11 3 ML Dexamethasone Sodium Phosphate 4 mg ONCE ONCE IV 06/20/23 15:00 06/20/23 15:01 DC 06/20/23 15:03 4 MG Diltiazem HCl 15 mg ONCE ONCE IVP 06/20/23 15:45 06/20/23 15:46 DC 06/20/23 15:45 15 MG Sodium Chloride 500 ml @ 0 mls/hr Q0M ONCE IV 06/20/23 14:15 06/20/23 14:16 DC 06/20/23 14:17 0 MLS/HR Sodium Chloride 500 ml @ 0 mls/hr Q0M ONCE IV 06/20/23 15:45 06/20/23 15:46 DC 06/20/23 15:46 0 MLS/HR Vital Signs/I&O 06/20/23 06/20/23 06/20/23 06/20/23 13:53 13:53 14:12 15:11 Temp 36.6 Pulse 99 Resp 20 B/P (MAP) 111/70 (84) Pulse Ox 90 89 94 O2 Delivery Nasal Cannula Nasal Cannula Nasal Cannula Nasal Cannula O2 Flow Rate 4.00 4.00 4.00 4.00 06/20/23 06/20/23 15:45 15:54 Pulse 141 110 B/P (MAP) 82/62 101/71 Capillary Refill : Blood Pressure Mean: 84 Progress Note : Progress Note Seen and evaluated. We will initiate sepsis protocol including CBC, CMP, blood cultures, lactic acid, coags and we will get CRP as well as COVID and influenza screen. Chest x-ray and UA ordered. O2 increased to 5 L which she is doing better on. We will give normal saline 500 mL bolus. Monitor patient. Differential diagnosis includes pneumonia, UTI, dehydration, COPD exacerbation, electrolyte abnormality 1551: Patient was noted to go into atrial fibrillation with rapid ventricular response. Heart rate was 99 200 on arrival and was sinus tach but now she is running 130s to 150s. We have initiated Cardizem drip after bolus. Bolus of 15 mg given and then drip will start at 5 and we we will titrate as needed. Chest x-ray reviewed and patient does have moderate right sided pneumothorax on my interpretation and verified with radiology. I have spoken with Dr. Cat, surgeon on-call and he will place Thora vent but would like to do that in the ICU and we will work to get her up to the ICU. I have reviewed the labs and CBC shows slightly elevated white count at 13.9 with otherwise grossly normal counts. UA is negative. Chemistry shows some mild elevation of serum creat inine but otherwise grossly normal electrolytes and LFTs. Lactic acid was elevated at 3 which I suspect is secondary to hypoxia earlier. CRP slightly elevated at 1.8. She did get 500 mL normal saline bolus repeated x1. I did discuss the case with Dr. Navarro who will see the patient in the ER. She is hospitalist on-call. She excepted patient for admission, inpatient status. 164 5: Patient has gone to the ICU. We did increase Cardizem drip to 10 mg/h. Patient is on high flow O2 via mask. I did speak with custom miller on-call Dr. Cedeno accepts patient in consult as well. I did discuss the case with the eICU team and reviewed all pertinent findings and treatments thus far. Patient is up to ICU now. ECG Initial ECG Impression Date: Jun 20, 2023 Initial ECG Impression Time: 15:21 Initial ECG Rate: 112 Initial ECG Rhythm: A Fib/Flutter Initial ECG Impression: Atrial Fibrillation w/RVR Comment Atrial fibrillation with rapid ventricular response and left axis deviation noted. No evidence of ST elevation MS. Interpreted by me. Diagnostic Imaging Diagonstic Imaging: Xray Plain Films/CT/US/NM/MRI: chest Comments [facility]. [place], [place] NAME: AYO CHÁVEZ [facility] REC#: [id number] PT STATUS: REG ER : 1945 PHYSICIAN: JIMMY MCKENZIE MD ADMIT DATE: 06/20/23/ER Draft Date of Exam:06/20/23 CHEST 1 VIEW, AP/PA ONLY HISTORY: Shortness of air. COMPARISON: 03/26/2023. TECHNIQUE: Frontal view of the chest. FINDINGS: There is a large right pneumothorax, approximately 50%. There are left basilar airspace opacities, may be scarring or atelectasis. The cardiac silhouette is stable in size. There is no pleural effusion. Bone density is diffusely low. IMPRESSION: 1. Large right pneumothorax. 2. Left basilar airspace opacity, may be scarring or atelectasis. Findings discussed with Jimmy Mckenzie MD by Dr. Lazo, on 06/20/2023 3:37 PM. Dictated on workstation # [id number] Dict: 06/20/23 1533 Trans: 06/20/23 1540 [facility] [id number] Interpreted by: MARII LAZO MD Electronically signed by: Critical Care Note Critical Care Start Time: 15:57 Stop Time: 16:45 Total Time (minutes) 30 minutes excluding separately billable procedures. See progress note for details. Departure Communication (Admissions) Time/Spoke to Admitting Phy: 15:51 Time/Spoke to Consulting Phy: 15:38 Impression Primary Impression: Atrial fibrillation with RVR Additional Impressions: Pneumothorax on right COPD exacerbation Disposition: ADMITTED INPATIENT Condition: Stable Admissions Decision to Admit Reason: Admit from ER (General) Decision to Admit/Date: Jun 20, 2023 Time/Decision to Admit Time: 15:51 Departure-Patient Inst. Referrals: MERVAT SERNA MD (PCP/Family) Primary Care Physician JIMMY MCKENZIE MD Jun 20, 2023 14:24
[2023-06-20 14:36] LABS: INR 1.4 (0.8-1.4); PROTHROMBIN TIME PATIENT 16.8 SEC (12.2-14.7)
[2023-06-20 14:40] LABS: BILIRUBIN,TOTAL 0.3 MG/DL (0.1-1.0); CALCIUM 10.5 MG/DL (8.5-10.1); CREATININE SERUM 1.41 MG/DL (0.60-1.30); POTASSIUM 3.5 MMOL/L (3.6-5.0); TOTAL PROTEIN 7.2 GM/DL (6.4-8.2)
[2023-06-20] MEDS ORDERED: RT-Ipratropium/Albuterol NEB 3 ML VIAL INH ONE (15:00)
[2023-06-20] MEDS ORDERED: dexAMETHasone INJ 4 MG/ML SDV IV ONE (15:00)
[2023-06-20] MEDS ORDERED: NS IV 500 ML 500 ML ONE ×2 (15:39→23:39)
--- NOTE | 2023-06-20 15:41 | Diagnostic Imaging Report ---
HISTORY: Shortness of air. COMPARISON: 03/26/2023. TECHNIQUE: Frontal view of the chest. FINDINGS: There is a large right pneumothorax, approximately 50%. There are left basilar airspace opacities, may be scarring or atelectasis. The cardiac silhouette is stable in size. There is no pleural effusion. Bone density is diffusely low. IMPRESSION: 1. Large right pneumothorax. 2. Left basilar airspace opacity, may be scarring or atelectasis. Findings discussed with Jimmy Grijalva MD by Dr. Dawn, on 06/20/2023 3:37 PM. Dictated by: Dictated on workstation # [id number]
[2023-06-20] MEDS ORDERED: dilTIAZem DRIP PRE-MIX 125 ML IV SCH (15:45)
[2023-06-20] MEDS ORDERED: dilTIAZem INJ 25 MG/5 ML VIAL IVP ONE (15:45)
[2023-06-20 15:54] LABS: BACTERIA,URINE NEGATIVE /HPF; BILIRUBIN,URINE NEGATIVE (NEGATIVE); CLARITY,URINE CLEAR; COLOR,URINE YELLOW; GLUCOSE, URINE (UA) NEGATIVE (NEGATIVE); KETONES,URINE NEGATIVE (NEGATIVE); LEUKOCYTE ESTERASE ,URINE NEGATIVE (NEGATIVE); NITRITE,URINE NEGATIVE (NEGATIVE); PROTEIN,URINE NEGATIVE (NEGATIVE); SQUAMOUS EPITHELIAL CELL,UR 0-2 /HPF
[2023-06-20] MEDS ORDERED: BISACODYL 10 MG SUPPOSITORY PR PRN (16:45)
[2023-06-20] MEDS ORDERED: LACTULOSE SYRUP 10GM/15ML 30ML UDC PO PRN (16:45)
[2023-06-20] MEDS ORDERED: ENOXAPARIN 150 MG/ML SYRINGE SQ SCH (16:45)
[2023-06-20] MEDS ORDERED: ONDANSETRON 4 MG ORAL DISSOLVE TABLET PO PRN (16:45)
[2023-06-20] MEDS ORDERED: ACETAMINOPHEN 325 MG TABLET PO PRN (16:45)
[2023-06-20] MEDS ORDERED: MELATONIN 3 MG TABLET PO PRN (16:45)
[2023-06-20] MEDS ORDERED: dilTIAZem IV FOR DRIP 125 MG in NS (IVPB) 100 ML 100 ML IV SCH (16:45)
[2023-06-20] MEDS ORDERED: MILK OF MAGNESIA 400 MG/5 ML 30 ML UDC PO PRN (16:45)
[2023-06-20] MEDS ORDERED: CALCIUM CARBONATE 500 MG CHEW TABLET PO PRN (16:45)
[2023-06-20 16:56] VITALS: BP 111/70
--- NOTE | 2023-06-20 17:03 | Tele-ICU Progress Note ---
Subjective Date Seen by a Provider: Jun 20, 2023 Time Seen by a Provider: 17:02 Subjective/Events-last exam (Tele-ICU Physician , consultation as per request of PCP Service provided via interactive audio and video telecommunications E-CARE system to a patient admitted to ICU bed in [facility]. Available chart/ vitals / labs / Images reviewed H&P is from ER notes Patient's information available about PMH, Shx, Fhx allergy reviewed inEMR. ROS as per chart and RN report Now in ICU, hemodynamically stable Video assessment done using teleICU camera, rest of exam as per RN Discussed with RN. Hospital course: A/P Spontaneous secondary PTX on RIGHT - O2 , chest tube to be place by SX AECOPD - with concominat PTX, viral panel negative - cont nebs - cont steroids today ( IMPROVEMENT INTERN on 3 l O2 at home ) A fib RVR , h/o PAF - on cardizem gtt - AC IMPROVEMENT INTERN with Eliquis -ECHO 2020 - EF 50% , PA pressure 20 elv lactate - with hypoxia and WOB - no infection CKD - close to baseline SOLOMON, -DX 2021 ( AHI 15 ) - during titration study went to CSA AHI 25 --> ASV EPAP min 4, MAx 20 , PS min ) , max 25 , rate auto - all SOLOMON /CSA resolved Lines : periph , (Central Line Necessity Reviewed) Sotomayor: OG: Nutrition: Analgesia: Anxiety/ delirium VTE Prophylaxis: IMPROVEMENT INTERN eliquis , ? lovenoc full dose tomorrow Stress Ulcer Prophylaxis: Plans in collaboration with bedside consultants and IM MDs. Discussed with RN to reach out if any questions or concerns A total of _15 minutes of critical care time was devoted to this patient today, required to treat and/or prevent further deterioration of critical care condition ( as above ) . I am remotely monitoring this patient from another state. I am unable to do the bedside exam, and history/physical and pertinent information is taken from other notes in the computer and bedside staff. . Sepsis Event Evaluation Height, Weight, BMI Height: 5'3.00" Weight: 110lbs. 0.0oz. 49.075690rk; 16.00 BMI Method:Stated Focused Exam Lactate Level 06/20/23 14:08: Lactic Acid Level 3.02*H Lactic Acid Level Laboratory Tests Test 06/20/23 14:08 Lactic Acid Level 3.02 MMOL/L (0.50-2.00) *H Exam Exam Patient acknowledged, consented, and participated in this virtual visit which was conducted using real time audio/video Vital Signs Date Time Temp Pulse Resp B/P (MAP) Pulse Ox O2 Delivery O2 Flow Rate FiO2 06/20/23 16:57 121 06/20/23 15:54 110 101/71 06/20/23 15:45 141 82/62 06/20/23 15:11 94 Nasal Cannula 4.00 06/20/23 14:12 Nasal Cannula 4.00 06/20/23 13:53 89 Nasal Cannula 4.00 06/20/23 13:53 36.6 99 20 111/70 (84) 90 Nasal Cannula 4.00 Height & Weight Height: 5'3.00" Weight: 110lbs. 0.0oz. 49.110189xf; 16.00 BMI Method:Stated General Appearance: Other Gastrointestinal: non tender, soft Results Lab Laboratory Tests 06/20/23 14:08 Assessment/Plan Assessment/Plan 1 ARLEEN GIL MD Jun 20, 2023 17:03
--- NOTE | 2023-06-20 17:03 | History & Physical-Hospitalist ---
History of Present Illness HPI/Chief Complaint Pt is a 78yoCf with a PMH COPD, a fib who presented to the ER due to shortness of breath. She states she has not been doing well for the last few months with her COPD and will be short of breath off and on. This morning she woke up and it was much worse prompting her to come to the ER today. When she got here her heart was racing but she was noted to be in sinus tach. Shortly after that her heart rate shot up to the 140s and EKG showed a fib with RVR. She was mildly hypotensive as well. CXR was obtained which showed a right sided pneumothorax. She denies any falls or injuries recently. She denies any chest pain, She denies any nausea or vomiting, fever, leg swelling, or fever. Source: patient Date Seen 06/20/23 Time Seen by a Provider: 16:00 Attending Physician Paolo Mendez MD PCP Admitting Physician: Jaycob Navarro MD Attending Physician: Jaycob Navarro MD Referring Physician Date of Admission Jun 20, 2023 at 16:25 Home Medications & Allergies Home Medications Reviewed patient Home Medication Reconciliation performed by pharmacy medication reconciliations speech therapist technician and/or nursing. Patients Allergies have been reviewed. Allergies Allergies Coded Allergies nitrofurantoin (Verified Allergy, Severe, RASH, 12/10/15) ITCHING AND RASH sulfamethoxazole (Verified Allergy, Severe, RASH, 12/10/15) ITCHING AND RASH trimethoprim (Verified Allergy, Severe, RASH, 12/10/15) ITCHING AND RASH azithromycin (Verified Allergy, Unknown, 08/14/14) cefixime (Verified Allergy, Unknown, 08/14/14) Past [id number]-[id number] Hx Patient Social History Marrital Status: Tobacco Use?: Yes Tobacco type used: Cigarettes Substance use?: No Alcohol Use?: No Pt feels they are or have been: No Immunizations Up To Date Date of Influenza Vaccine: Aug 16, 2019 First/Initial COVID19 Vaccinat: FEBRUARY 2021 Second COVID19 Vaccination Aron: MARCH 2021 Tetanus Booster (TDap): Unknown Hepatitis A: No Hepatitis B: No PED Vaccines UTD: No Date of Pneumonia Vaccine: May 13, 2013 Seasonal Allergies Seasonal Allergies: Yes Current Status Communicates: Verbally Primary Language: Congolese Preferred Spoken Language: Congolese Sensory deficits: Vision impairment Implanted or Applied Medical D: None Past Medical History Surgeries: Breast, Orthopedic, Thyroidectomy Pneumonia, COPD Chronic Edema/Swelling, Hypertension Headaches /Migraines Bladder Infection Osteoporosis, Chronic Back Pain Hypothyroidsim Anxiety Blood Disorders: No Family Medical History Reviewed Nursing Family Hx Bladder problems G8 SISTER FH: lung cancer 19 FATHER Thyroid disease 19 MOTHER Cancer Review of Systems Constitutional: see HPI Physical Exam Physical Exam Vital Signs Vital Signs - First Documented 06/20/23 16:56 FiO2 36 Capillary Refill : Height, Weight, BMI Height: 5'3.00" Weight: 110lbs. 0.0oz. 49.048677gy; 16.00 BMI Method:Stated General Appearance: Anxious, Chronically ill, Thin Respiratory: No Accessory Muscle Use, Wheezing, Other Cardiovascular: Irregularly Irregular, Tachycardia Gastrointestinal: Normal Bowel Sounds, Non Tender, Soft Extremity: No Calf Tenderness, No Pedal Edema Neurologic/Psychiatric: Alert, Oriented x3 Results Results/Procedures Labs Laboratory Tests 06/20/23 14:08 06/21/23 03:46 Patient resulted labs reviewed. Imaging: Reviewed Imaging Report Imaging [facility], [place], [place] NAME: AYO CHÁVEZ [facility] REC#: [id number] PT STATUS: REG ER : 1945 PHYSICIAN: JIMMY MCKENZIE MD ADMIT DATE: 06/20/23/ER Draft Date of Exam:06/20/23 CHEST 1 VIEW, AP/PA ONLY HISTORY: Shortness of air. COMPARISON: 03/26/2023. TECHNIQUE: Frontal view of the chest. FINDINGS: There is a large right pneumothorax, approximately 50%. There are left basilar airspace opacities, may be scarring or atelectasis. The cardiac silhouette is stable in size. There is no pleural effusion. Bone density is diffusely low. IMPRESSION: 1. Large right pneumothorax. 2. Left basilar airspace opacity, may be scarring or atelectasis. Findings discussed with Jimmy Mckenzie MD by Dr. Lazo, on 06/20/2023 3:37 PM. Dictated on workstation # [id number] Dict: 06/20/23 1533 Trans: 06/20/[address] [facility] [id number] Interpreted by: MARII LAZO MD Electronically signed by: Assessment/Plan Admission Diagnosis Acute on Chronic Hypoxic Respiratory failure Admission Status: Inpatient Order (span 2 midnights) Reason for Inpatient Admission: see below Assessment and Plan Acute on Chronic Hypoxic Respiratory failure COPD Exacerbation Pneumothorax 5lpm on oxi mask Steroids No indication for antibiotics as this time Surgery consulted for management of pneumothorax TeleICU lactic acidosis likely due to hypoxia A fib with RVR Cardizem gtt Lovenox for stroke ppx Cardiology consulted, appreciate recs hypothyroidism check tsh anxiety resume home xanax JAYCOB Worthington MD Jun 20, 2023 17:03
[2023-06-20] MEDS ORDERED: LIDOCAINE 1% INJ 20 ML VIAL ONE (17:28)
[2023-06-20] MEDS ORDERED: NICOTINE 7 MG PATCH TD NR (17:30)
[2023-06-20] MEDS: methylPREDNISolone INJ 125 MG VIAL IV SCH ×2 (17:32→23:42)
[2023-06-20] MEDS: dilTIAZem DRIP 125 MG/125 ML DRIP IV SCH (17:36)
[2023-06-20] MEDS ORDERED: LIDOCAINE 1% INJ 20 ML VIAL INJ ONE (17:45)
[2023-06-20] MEDS: ENOXAPARIN 40 MG/0.4 ML SYRINGE SC SCH (17:53)
[2023-06-20] MEDS: NS IV 1000 ML 1,000 ML IV SCH (17:53)
[2023-06-20] MEDS ORDERED: RT-ALBUTEROL SULF 2.5 MG/3 ML PRE-MIX VIAL INH SCH (18:00)
[2023-06-20] MEDS ORDERED: RT-Ipratropium/Albuterol NEB 3 ML VIAL IH SCH (18:00)
--- NOTE | 2023-06-20 18:53 | Diagnostic Imaging Report ---
INDICATION: Pneumothorax post placement of chest tube. COMPARISON: 06/20/2023. FINDINGS: Comparison with chest shows interval placement of a right upper chest chest tube. The previously demonstrated 50% right pneumothorax shows new complete reexpansion with residual of less than 10% pneumothorax remaining. There is underlying chronic parenchymal changes. The left lung appears reasonably well aerated. Cardiac contour is normal. IMPRESSION: Near complete expansion of the right lung post placement of a small Arabic right chest tube. The chest is otherwise senescent with COPD chronic parenchymal changes. Dictated by: Dictated on workstation # [id number]
[2023-06-20] MEDS: RT-Ipratropium/Albuterol NEB 3 ML VIAL IH SCH ×2 (19:12→22:33)
--- NOTE | 2023-06-20 19:39 | CONSULTATION REPORT ---
DATE OF SERVICE: 06/20/2023 ATTENDING PRIMARY CARE PHYSICIAN: Lizzy Deleon M.D. HISTORY OF PRESENT ILLNESS: The patient is a 78-year-old female who presented to the emergency department with acute onset of shortness of breath as well as mild chest discomfort. She does have a longstanding history of COPD due to smoking. She also does have a history of atrial fibrillation; however, when she presented to the emergency department, she was tachycardic with a rapid ventricular response. X-ray did show a right sided pneumothorax, likely secondary to ruptured bleb. PAST MEDICAL HISTORY: COPD, degenerative joint disease, migraine headaches, hypertension, history of pneumonia, thyroid nodule, benign breast lesions, osteoporosis. PAST SURGICAL HISTORY: Thyroid isthmusectomy, cervical spine ORIF. ALLERGIES: NITROFURANTOIN, BACTRIM, AZITHROMYCIN. MEDICATIONS: Albuterol inhaler 2 puffs q.4 hours p.r.n., albuterol breathing treatments p.r.n., alprazolam 0.5 mg daily, Eliquis 5 mg b.i.d., citalopram 20 mg daily, formoterol 20 mcg breathing treatment daily, hydrocodone p.r.n., ipratropium bromide p.r.n., midodrine 2.5 mg t.i.d., mirtazapine 15 mg daily, Zofran p.r.n., potassium 10 mEq daily, prednisone 30 mg daily, propranolol 20 mg daily, Lander Thyroid 60 mg daily. SOCIAL HISTORY: Positive smoke 60 pack years, negative alcohol. FAMILY HISTORY: Noncontributory. VITAL SIGNS: Temperature 36.6, blood pressure 101/55, pulse 37, respirations 21, pulse ox 95% on OxyMask at 10 liters. REVIEW OF SYSTEMS: Well-nourished female, currently in no acute distress. She is not experiencing shortness of breath or difficulty breathing. No chest pain, palpitations, diaphoresis. She does have exertional shortness of breath as well as mild discomfort in the right side of the chest. No new cough or sputum production. No nausea or vomiting. No diarrhea or constipation. No fever, chills, no recent inadvertent weight loss. All other review of systems negative. PHYSICAL EXAMINATION: CHEST: Decreased right-sided breath sounds with scattered wheezes and rhonchi bilaterally. HEART: Regular. No murmurs. Tachycardic. EXTREMITIES: No lower extremity edema. Negative Homans sign. HEENT: No scleral icterus. No cervical lymphadenopathy. ABDOMEN: Soft, nontender, nondistended. SKIN: Warm, dry. LABORATORY DATA: WBC 13.2, hemoglobin 11.4, hematocrit 37, platelets 329, BUN 22, creatinine 1.41. ASSESSMENT AND PLAN: A 78-year-old female with a spontaneous right sided pneumothorax, likely secondary to ruptured pulmonary bleb. We will proceed initially with a Thora-Vent placement and also place this to a water seal to identify any potential air leaks. We will place this on suction for now and get a followup chest x-ray in the a.m., and if the lung is fully inflated, we will then put on waterseal. Once the lung stays inflated on waterseal, we will then remove the chest tube. Job ID: [id number] DocumentID: [id number] Dictated Date: 06/20/2023 18:53:07 Department Head Date: 06/20/2023 19:37:00 Dictated By: BOB SERRANO MD
[2023-06-20] MEDS ORDERED: FAMO-356 PO (20:00)
[2023-06-20] MEDS ORDERED: BENZ100C18 PO (20:06)
[2023-06-20] MEDS ORDERED: FURO40TA4 PO (20:06)
[2023-06-20 22:38] LABS: ABG BASE EXCESS -1.7 MMOL/L (-2.5-2.5); ABG OXYGEN SATURATION 87 % (94-100); ABG PCO2 30 MMHG (35-45); ABG PH 7.47 (7.37-7.43); ABG PO2 48 MMHG (79-93); ABG TCO2 22.6 MMOL/L (21.0-31.0)
[2023-06-20 22:43] LABS: INSPIRED O2 10L; PATIENT TEMP 35.9; VENTILATOR NO
[2023-06-20] MEDS ORDERED: NS (IVPB) 250 ML 250 ML IV ONE (23:45)
[2023-06-21] MEDS: ALPRAZolam 0.25 MG TABLET PO PRN ×2 (00:13→12:07)
[2023-06-21] MEDS: HYDROcodone/ACETAMINOPHEN 5 MG/325 MG TABLET PO PRN (00:13)
[2023-06-21] MEDS: NS IV 1000 ML 1,000 ML IV SCH ×3 (02:07→17:44)
[2023-06-21] MEDS ORDERED: NS IV 500 ML 500 ML ONE (02:29)
[2023-06-21] MEDS: NS IV 500 ML 500 ML IV SCH ×2 (02:35→18:48)
[2023-06-21] MEDS: RT-Ipratropium/Albuterol NEB 3 ML VIAL IH SCH ×6 (02:47→22:05)
--- NOTE | 2023-06-21 03:10 | OPERATIVE REPORT ---
DATE OF SERVICE: 06/20/2023 ATTENDING PRIMARY CARE PHYSICIAN: Lizzy Deleon MD PREOPERATIVE DIAGNOSIS: Spontaneous right pneumothorax. POSTOPERATIVE DIAGNOSES: Spontaneous right pneumothorax. PROCEDURE: Placement of right Thora-Vent chest tube. SURGEON: Bob Serrano MD ANESTHESIA: Local. ESTIMATED BLOOD LOSS: Minimal. FINDINGS: No air leak with full insufflation after a followup chest x-ray. DISPOSITION: The patient tolerated the procedure well. INDICATIONS: The patient is a 78-year-old female with a longstanding history of smoking and COPD history. She developed shortness of breath early this morning as well as chest tightness sensation more on the right side. She was seen in the Emergency Department and found to be in atrial fibrillation with a rapid ventricular response. However, she was also found to have a right-sided pneumothorax. DESCRIPTION OF PROCEDURE: The chest and neck were prepped and draped in standard surgical fashion. At approximately the third intercostal space along the lateral anterior chest at the third intercostal space, the skin, muscle layers as well as the parietal pleura were anesthetized using 1% lidocaine. A transverse skin incision was made using an 11 blade and the combination chest tube and Thora-Vent were then placed and the chest tube was then guided over the trocar without any resistance. The chest tube was then placed to suction tubing and an atrium waterseal and placed to suction where initially a leak was identified; however, this stopped on its own. This was left on low continuous suction. The chest tube was affixed with the chest wall with the device within the thora-vent.. The patient tolerated the procedure well. We will get a post-procedure chest x-ray as well as a followup a.m. chest x-ray. Job ID: [id number] DocumentID: [id number] Dictated Date: 06/20/2023 18:56:43 Assembly Press Operator Date: 06/21/2023 03:08:00 Dictated By: BOB SERRANO MD [facility]
[2023-06-21 04:00] LABS: HEMATOCRIT 27 % (35-52); HEMOGLOBIN 8.9 g/dL (11.5-16.0); MEAN CORPUSCULAR HEMOGLOBIN 30 pg (25-34); MEAN CORPUSCULAR HGB CONC 33 g/dL (32-36); MEAN CORPUSCULAR VOLUME 94 fL (80-99); MEAN PLATELET VOLUME 10.9 fL (9.0-12.2); PLATELET COUNT 245 10^3/uL (130-400); WHITE BLOOD COUNT 9.6 10^3/uL (4.3-11.0)
[2023-06-21 04:11] LABS: POTASSIUM 3.4 MMOL/L (3.6-5.0)
[2023-06-21 04:13] LABS: CALCIUM 8.6 MG/DL (8.5-10.1)
[2023-06-21 04:17] LABS: CREATININE SERUM 0.98 MG/DL (0.60-1.30)
[2023-06-21 04:19] LABS: MAGNESIUM 1.5 MG/DL (1.6-2.4)
[2023-06-21] MEDS: methylPREDNISolone INJ 125 MG VIAL IV SCH (06:11)
[2023-06-21] MEDS: POTASSIUM CL 10MEQ/50ML IVPB 50 ML IV SCH ×4 (06:11→10:26)
[2023-06-21] MEDS: MAGNESIUM 1 GM/100 ML IVPB 100 ML IV SCH ×2 (06:11→08:42)
--- NOTE | 2023-06-21 06:36 | Diagnostic Imaging Report ---
Clinical indications: Patient with dyspnea and chest tube placed. EXAM: Portable chest x-ray upright view. COMPARISON: Chest x-ray dated 06/20/2023. FINDINGS: Small bore chest tube again seen overlying the right upper chest region. There is stable minimal sized right apical pneumothorax seen. There is increased lung markings in the right lung which may related to atelectasis with superimposed chronic lung changes. There is blunting of the right costophrenic angle region concerning for moderate pleural effusion. There is minimal left basilar atelectasis. Pulmonary vasculature and cardiac silhouette within normal limits. IMPRESSION: 1: Again seen small bore chest tube overlying the right upper lung field region. Stable minimal sized right apical pneumothorax. 2: Stable right lung atelectasis with superimposed chronic lung changes. Subtle infiltrate in the right lung also cannot be completely excluded. 3: There is a small right pleural effusion. Dictated by: Dictated on workstation # [id number]
--- NOTE | 2023-06-21 08:14 | Tele-ICU Progress Note ---
Progress Note video rounds completed Tele-ICU Physician, consultation as per request of PCP Service provided via interactive audio and video telecommunications E-CARE system to a patient admitted to ICU bed in [facility]. Available chart/ vitals / labs / Images reviewed H&P is from ER notes Patient's information available about PMH, Shx, Fhx allergy reviewed inEMR. ROS as per chart and RN report Now in ICU, hemodynamically stable Video assessment done using teleICU camera, rest of exam as per RN Discussed with RN. Hospital course: 78 y/o female with a fib/rvr and right pneumothorax from ruptured bleb from COPD Right chhest tube placed with improvement. On diltiazem drip at 5mg/hr IMP: Spontaneous pneumothorax on RIGHT - O2 , chest tube in place with resolution A fib RVR , h/o PAF - on cardizem gtt at 5mg/hr on lovenox 40mg q 12 - - CKD - close to baseline Plans in collaboration with bedside consultants and IM MDs. Time spent in review 15 minutes I am remotely monitoring this patient from another state. I am unable to do the bedside exam, and history/physical and pertinent information is taken from other notes in the computer and bedside staff. . Focused Exam Lactate Level 06/20/23 14:08: Lactic Acid Level 3.02*H 06/21/23 03:46: Lactic Acid Level 1.10 Height, Weight, BMI Height: 5'3.00" Weight: 110lbs. 0.0oz. 49.332881ga; 16.99 BMI Method:Stated Labs Laboratory Tests 06/20/23 14:08 06/21/23 03:46 Results Results/Procedures Labs Laboratory Tests 06/20/23 14:08 06/21/23 03:46 Patient resulted labs reviewed. Imaging: Reviewed Imaging Report Results Labs Labs Laboratory Tests 06/20/23 14:08: White Blood Count 13.2H, Red Blood Count 3.86, Hemoglobin 11.4L, Hematocrit 37, Mean Corpuscular Volume 95, Mean Corpuscular Hemoglobin 30, Mean Corpuscular Hemoglobin Concent 31L, Red Cell Distribution Width 13.7, Platelet Count 329, Mean Platelet Volume 10.2, Immature Granulocyte % (Auto) 0, Neutrophils (%) ( Auto) 61, Lymphocytes (%) (Auto) 27, Monocytes (%) (Auto) 8, Eosinophils (%) (Auto) 4, Basophils (%) (Auto) 0, Neutrophils # (Auto) 8.1H, Lymphocytes # (Auto) 3.6, Monocytes # (Auto) 1.0, Eosinophils # (Auto) 0.5H, Basophils # (Auto) 0.0, Immature Granulocyte # (Auto) 0.0, Prothrombin Time 16.8H, INR Comment 1.4, Activated Partial Thromboplast Time 34, Sodium Level 145, Potassium Level 3.5L, Chloride Level 100, Carbon Dioxide Level 29, Anion Gap 16H, Blood Urea Nitrogen 22H, Creatinine 1.41H, Estimat Glomerular Filtration Rate 39, BUN/Creatinine Ratio 16, Glucose Level 94, Lactic Acid Level 3.02*H, Calcium Level 10.5H, Corrected Calcium 10.5H, Total Bilirubin 0.3, Aspartate Amino T ransf (AST/SGOT) 13, Alanine Aminotransferase (ALT/SGPT) 8, Alkaline Phosphatase 49, C-Reactive Protein High Sensitivity 1.81H, Total Protein 7.2, Albumin 4.0, Thyroid Stimulating Hormone (TSH) 0.30L, Influenza Type A (RT-PCR) Not Detected, Influenza Type B (RT-PCR) Not Detected, SARS-CoV-2 RNA (RT-PCR) Not Detected 06/20/23 15:32: Urine Color YELLOW, Urine Clarity CLEAR, Urine pH 6.0, Urine Specific [place] 1.010L, Urine Protein NEGATIVE, Urine Glucose (UA) NEGATIVE, Urine Ketones NEGATIVE, Urine Nitrite NEGATIVE, Urine Bilirubin NEGATIVE, Urine Urobilinogen 0.2, Urine Leukocyte Esterase NEGATIVE, Urine RBC (Auto) NEGATIVE, Urine RBC NONE, Urine WBC NONE, Urine Squamous Epithelial Cells 0-2, Urine Crystals NONE, Urine Bacteria NEGATIVE, Urine Casts NONE, Urine Mucus NEGATIVE, Urine Culture Indicated CULTURE PENDING 06/20/23 22:30: Blood Gas Puncture Site LEFT RADIAL, Blood Gas Patient Temperature 35.9, Arterial Blood pH 7.47H, Arterial Blood Partial Pressure CO2 30L, Arterial Blood Partial Pressure O2 48L, Arterial Blood HCO3 22L, Arterial Blood Total CO2 22.6, Arterial Blood Oxygen Saturation 87L, Arterial Blood Base Excess -1.7, [place] Test NA, Blood Gas Ventilator Setting NO, Blood Gas Inspired Oxygen 10L 06/21/23 03:46: White Blood Count 9.6, Red Blood Count 2.93L, Hemoglobin 8.9L, Hematocrit 27L, Mean Corpuscular Volume 94, Mean Corpuscular Hemoglobin 30, Mean Corpuscular Hemoglobin Concent 33, Red Cell Distribution Width 13.7, Platelet Count 245, Mean Platelet Volume 10.9, Sodium Level 138, Potassium Level 3.4L, Chloride Level 105, Carbon Dioxide Level 21, Anion Gap 12, Blood Urea Nitrogen 21H, Creatinine 0.98, Estimat Glomerular Filtration Rate 60, BUN/Creatinine Ratio 21, Glucose Level 139H, Lactic Acid Level 1.10, Calcium Level 8.6, Magnesium Level 1.5L GIANLUCA CEDENO MD Jun 21, 2023 08:14
[2023-06-21] MEDS: NICOTINE 7 MG PATCH TD SCH (08:41)
[2023-06-21] MEDS: NICOTINE PATCH REMOVAL TP SCH (08:41)
--- NOTE | 2023-06-21 10:24 | Diagnostic Imaging Report ---
INDICATION: Shortness of breath. Comparison is made with prior exam of 06/20/2023. FINDINGS: A small right thoracostomy tube remains in place. There is right perihilar atelectasis and/or pneumonitis. The left lung is clear. There is no pneumothorax. The mediastinum is unremarkable. There is unchanged soft tissue prominence about the right hilum IMPRESSION: Persistent soft tissue prominence about the right hilum with some atelectasis and/or pneumonitis in the right midlung and likely trace right pleural effusion. There is no significant residual pneumothorax. Dictated by: Dictated on workstation # [id number]
[2023-06-21] MEDS ORDERED: NS IV 500 ML 500 ML IV PRN (10:30)
--- NOTE | 2023-06-21 10:30 | Progress Note - Hospitalist ---
Subjective HPI/CC On Admission Date Seen by Provider: Jun 21, 2023 Pt is a 78yoCf with a PMH COPD, a fib who presented to the ER due to shortness of breath. She states she has not been doing well for the last few months with her COPD and will be short of breath off and on. This morning she woke up and it was much worse prompting her to come to the ER today. When she got here her heart was racing but she was noted to be in sinus tach. Shortly after that her heart rate shot up to the 140s and EKG showed a fib with RVR. She was mildly hypotensive as well. CXR was obtained which showed a right sided pneumothorax. She denies any falls or injuries recently. She denies any chest pain, She denies any nausea or vomiting, fever, leg swelling, or fever. Subjective/Events-last exam Pt reports doing much better today. No complaints. Breathing improved. Had issues with thoravent last night but CXR stable last night. Focused Exam Lactate Level 06/20/23 14:08: Lactic Acid Level 3.02*H 06/21/23 03:46: Lactic Acid Level 1.10 Objective Exam Vital Signs Vital Signs Date Time Temp Pulse Resp B/P (MAP) Pulse Ox O2 Delivery O2 Flow Rate FiO2 06/21/23 10:00 83 109/94 (100) 90 High Flow N/C 5.00 06/21/23 07:50 36.3 06/20/23 23:15 22 06/20/23 16:56 36 Capillary Refill : General Appearance: No Apparent Distress, Chronically ill Respiratory: No Respiratory Distress, Wheezing (scant), Other (thoravent in place) Cardiovascular: Regular Rate, Rhythm Gastrointestinal: Normal Bowel Sounds, Soft Neurologic/Psychiatric: Alert, Oriented x3 Results/Procedures Lab Laboratory Tests 06/20/23 14:08 06/21/23 03:46 Patient resulted labs reviewed. Imaging: Reviewed Imaging Report Assessment/Plan Assessment and Plan Assess & Plan/Chief Complaint Acute on Chronic Hypoxic Respiratory failure COPD Exacerbation Pneumothorax 5lpm on NC- baseline is 4lpm I titrated down to 4lpm as she was satting 96%- remained above 91% while I was in the room Steroids No indication for antibiotics as this time Surgery consulted for management of pneumothorax- thoravent placed last night TeleICU lactic acidosis likely due to hypoxia A fib with RVR Cardizem gtt Converted to sinus rhythm last night Lovenox for stroke ppx Cardiology consulted, appreciate recs hypothyroidism TSH 0.3- check T4 anxiety Continue home xanax prn DVT ppx: JAYCOB Fernandez MD Jun 21, 2023 10:30
--- NOTE | 2023-06-21 11:22 | Progress Note ---
Subjective Date Seen by a Provider: Jun 21, 2023 Time Seen by a Provider: 11:00 Subjective/Events-last exam doing ok. breathing better. cxr improved. no SOB. Focused Exam Lactate Level 06/20/23 14:08: Lactic Acid Level 3.02*H 06/21/23 03:46: Lactic Acid Level 1.10 Objective Exam Vital Signs Date Time Temp Pulse Resp B/P (MAP) Pulse Ox O2 Delivery O2 Flow Rate FiO2 06/21/23 11:00 90 103/66 (78) 90 High Flow N/C 5.00 06/21/23 10:29 92 High Flow N/C 4.00 06/21/23 10:00 83 109/94 (100) 90 High Flow N/C 5.00 06/21/23 09:00 80 104/62 (72) 96 High Flow N/C 5.00 06/21/23 08:00 74 116/64 (82) 94 High Flow N/C 5.00 06/21/23 08:00 93 High Flow N/C 10.00 06/21/23 07:50 36.3 06/21/23 07:00 114/65 (74) 06/21/23 07:00 75 114/65 (74) 91 High Flow N/C 5.00 06/21/23 07:00 75 06/21/23 06:45 93 High Flow N/C 5.00 06/21/23 06:45 113/60 (79) 06/21/23 06:30 93/48 (65) 06/21/23 06:15 67 85/50 (62) 100 High Flow N/C 5.00 06/21/23 06:00 67 87/51 (64) 100 High Flow N/C 5.00 06/21/23 05:45 84/51 (62) High Flow N/C 5.00 06/21/23 05:30 91/49 (64) 100 High Flow N/C 5.00 06/21/23 05:15 93/53 (67) 99 High Flow N/C 5.00 06/21/23 05:00 70 92/57 (68) 99 High Flow N/C 5.00 06/21/23 04:45 71 97/58 (71) 100 High Flow N/C 5.00 06/21/23 04:30 73 96/54 (67) 98 High Flow N/C 6.00 06/21/23 04:15 76 105/57 (74) 92 High Flow N/C 6.00 06/21/23 04:00 97 High Flow N/C 7.00 06/21/23 04:00 99/59 (73) 06/21/23 03:45 36.6 74 96/55 (69) 98 High Flow N/C 6.00 06/21/23 03:30 77 105/57 (74) 98 High Flow N/C 6.00 06/21/23 03:15 76 101/56 (72) 97 High Flow N/C 6.00 06/21/23 03:00 77 98/59 (72) 97 High Flow N/C 6.00 06/21/23 02:47 94 High Flow N/C 7.00 06/21/23 02:45 97/69 (79) 95 High Flow N/C 6.00 06/21/23 02:30 98/51 (71) 06/21/23 02:15 94/53 (67) 06/21/23 02:00 78 89/50 (62) 96 High Flow N/C 8.00 06/21/23 01:45 98/46 (65) High Flow N/C 8.00 06/21/23 01:30 79 94/49 (70) 97 High Flow N/C 8.00 06/21/23 01:15 100/63 (73) 06/21/23 01:00 84 95/63 (73) 94 High Flow N/C 8.00 06/21/23 01:00 82 06/21/23 00:45 86/64 (68) 06/21/23 00:30 36.4 85 102/58 (75) 94 High Flow N/C 10.00 06/21/23 00:15 87 98/63 (71) 89 High Flow N/C 10.00 06/21/23 00:00 85 102/58 (73) 94 High Flow N/C 10.00 06/20/23 23:54 92 High Flow N/C 10.00 06/20/23 23:15 89 22 85/49 (67) 89 High Flow N/C 10.00 06/20/23 23:00 89 93/47 (62) 96 Nasal Cannula 4.00 06/20/23 22:34 90 High Flow N/C 10.00 06/20/23 22:00 98 104/48 (66) 92 Nasal Cannula 4.00 06/20/23 21:45 106 06/20/23 21:00 124 113/66 (82) 94 Nasal Cannula 4.00 06/20/23 20:15 141 91/69 (74) 92 Nasal Cannula 4.00 06/20/23 20:00 134 92/52 (64) 93 Nasal Cannula 4.00 06/20/23 20:00 36.2 06/20/23 19:45 141 78/56 (63) 96 Nasal Cannula 4.00 06/20/23 19:30 146 93/46 (50) 95 Nasal Cannula 4.00 06/20/23 19:15 137 91 Nasal Cannula 4.00 06/20/23 19:00 138 43 85/63 (68) 94 Nasal Cannula 4.00 06/20/23 19:00 133 06/20/23 18:00 137 21 101/55 (76) 95 OxyMask 10.00 06/20/23 17:36 121 111/70 06/20/23 17:00 147 23 89/49 (65) 96 OxyMask 10.00 06/20/23 16:57 121 06/20/23 16:56 36.6 99 90 36 06/20/23 16:40 20 106/76 92 OxyMask 8.00 06/20/23 16:40 90 OxyMask 10.00 06/20/23 15:54 110 101/71 06/20/23 15:45 141 82/62 06/20/23 15:11 94 Nasal Cannula 4.00 06/20/23 14:12 Nasal Cannula 4.00 06/20/23 13:53 89 Nasal Cannula 4.00 06/20/23 13:53 36.6 99 20 111/70 (84) 90 Nasal Cannula 4.00 I & O 06/21/23 07:00 Intake Total 3200 ml Output Total 350 ml Balance 2850 ml Capillary Refill : General Appearance: No Apparent Distress Neck: Full Range of Motion Respiratory: Rhonci, Wheezing Cardiovascular: Regular Rate, Rhythm Gastrointestinal: normal bowel sounds, non tender, soft Extremity: Normal Capillary Refill Neurologic/Psychiatric: Alert, Oriented x3 Skin: Normal Color Lymphatic: No Adenopathy Results Lab Laboratory Tests 06/20/23 14:08: White Blood Count 13.2H, Red Blood Count 3.86, Hemoglobin 11.4L, Hematocrit 37, Mean Corpuscular Volume 95, Mean Corpuscular Hemoglobin 30, Mean Corpuscular Hemoglobin Concent 31L, Red Cell Distribution Width 13.7, Platelet Count 329, Mean Platelet Volume 10.2, Immature Granulocyte % (Auto) 0, Neutrophils (%) (Auto) 61, Lymphocytes (%) (Auto) 27, Monocytes (%) (Auto) 8, Eosinophils (%) (Auto) 4, Basophils (%) (Auto) 0, Neutrophils # (Auto) 8.1H, Lymphocytes # (Auto) 3.6, Monocytes # (Auto) 1.0, Eosinophils # (Auto) 0.5H, Basophils # (Auto) 0.0, Immature Granulocyte # (Auto) 0.0, Prothrombin Time 16.8H, INR Comment 1.4, Activated Partial Thromboplast Time 34, Sodium Level 145, Potassium Level 3.5L, Chloride Level 100, Carbon Dioxide Level 29, Anion Gap 16H, Blood Urea Nitrogen 22H, Creatinine 1.41H, Estimat Glomerular Filtration Rate 39, BUN/Creatinine Ratio 16, Glucose Level 94, Lactic Acid Level 3.02*H, Calcium Level 10.5H, Corrected Calcium 10.5H, Total Bilirubin 0.3, Aspartate Amino Transf (AST/SGOT) 13, Alanine Aminotransferase (ALT/SGPT) 8, Alkaline Phosphatase 49, C-Reactive Protein High Sensitivity 1.81H, Total Protein 7.2, Albumin 4.0, Thyroid Stimulating Hormone (TSH) 0.30L, Influenza Type A (RT-PCR) Not Detected, Influenza Type B (RT-PCR) Not Detected, SARS-CoV-2 RNA (RT-PCR) Not Detected 06/20/23 15:32: Urine Color YELLOW, Urine Clarity CLEAR, Urine pH 6.0, Urine Specific Alpha 1.010L, Urine Protein NEGATIVE, Urine Glucose (UA) NEGATIVE, Urine Ketones NEGATIVE, Urine Nitrite NEGATIVE, Urine Bilirubin NEGATIVE, Urine Urobilinogen 0.2, Urine Leukocyte Esterase NEGATIVE, Urine RBC (Auto) NEGATIVE, Urine RBC NONE, Urine WBC NONE, Urine Squamous Epithelial Cells 0-2, Urine Crystals NONE, Urine Bacteria NEGATIVE, Urine Casts NONE, Urine Mucus NEGATIVE, Urine Culture Indicated CULTURE PENDING 06/20/23 22:30: Blood Gas Puncture Site LEFT RADIAL, Blood Gas Patient Temperature 35.9, Arterial Blood pH 7.47H, Arterial Blood Partial Pressure CO2 30L, Arterial Blood Partial Pressure O2 48L, Arterial Blood HCO3 22L, Arterial Blood Total CO2 22.6, Arterial Blood Oxygen Saturation 87L, Arterial Blood Base Excess -1.7, [place] Test NA, Blood Gas Ventilator Setting NO, Blood Gas Inspired Oxygen 10L 06/21/23 03:46: White Blood Count 9.6, Red Blood Count 2.93L, Hemoglobin 8.9L, Hematocrit 27L, Mean Corpuscular Volume 94, Mean Corpuscular Hemoglobin 30, Mean Corpuscular Hem oglobin Concent 33, Red Cell Distribution Width 13.7, Platelet Count 245, Mean Platelet Volume 10.9, Sodium Level 138, Potassium Level 3.4L, Chloride Level 105, Carbon Dioxide Level 21, Anion Gap 12, Blood Urea Nitrogen 21H, Creatinine 0.98, Estimat Glomerular Filtration Rate 60, BUN/Creatinine Ratio 21, Glucose Level 139H, Lactic Acid Level 1.10, Calcium Level 8.6, Magnesium Level 1.5L, Free Thyroxine 0.78 Assessment/Plan Assessment/Plan Assess & Plan/Chief Complaint spontaneous right ptx likely secondary to ruptured bleb s/p CT placement. place CT on water seal. f/u cxr in am. BOB SERRANO MD Jun 21, 2023 11:22
--- NOTE | 2023-06-21 11:51 | Physical Therapy Progress Note ---
Therapy Progress Note Patient refused treatment. Reports "Theres something wrong with this thing (chest tube) and I want to make sure its ok before I do anything." Nurse notified and agrees that patient can hold at this time. Will attempt at next available date. MERVAT SAVAGE PT Jun 21, 2023 11:51
[2023-06-21] MEDS: RT-ALBUTEROL SULF 2.5 MG/3 ML PRE-MIX VIAL INH PRN (12:46)
--- NOTE | 2023-06-21 12:56 | Diagnostic Imaging Report ---
CLINICAL INDICATION: Patient aspirated. EXAM: Portable chest x-ray, upright view. COMPARISON: Chest x-ray dated 06/21/2023. FINDINGS: Pigtail chest tube is seen in place. There appears to be development of a tiny subpulmonic pneumothorax in the right lung base. There is progression of mild atelectasis involving the right lung base. There is no pleural effusion. Decreased lung volume involving the right lung is again seen. There is mild atelectasis involving the left lung base. Pulmonary vasculature and cardiac silhouette are within normal limits. Multiple healed left rib fractures are seen. IMPRESSION: 1: Chest tube is in similar position. There is interval development of a tiny right subpulmonic pneumothorax. 2: There is progression of atelectasis involving the right lung base. 3: There is mild left lung base atelectasis. 4: The remainder of this exam shows no significant interval change compared to the prior study of comparison. Dictated by: Dictated on workstation # [id number]
--- NOTE | 2023-06-21 16:54 | Consultation-Cardiology ---
HPI-Cardiology Cardiology Consultation: Date of Consultation 06/21/23 Date of Admission Attending Physician Lyndsey He Admitting Physician Admitting Physician: Jaycob Friedman MD Attending Physician: Jaycob Friedman MD Consulting Physician Barbara MAST MD HPI: Time Seen by a Provider: 12:00 Chief Complaint: Shortness of breath This is a 78-year-old lady who has history of COPD. She has chronic dyspnea. However she presents with worsening shortness of breath which was worse recently. She was found to have right-sided pneumothorax. Received chest tube. She also complained of tachycardia and was found to be in atrial fibrillation with RVR. She is still short of breath. Converted to sinus rhythm overnight. Review of Systems-Cardiology Review of Systems Constitutional: tiredness Eyes: no symptoms reported Ears/Nose/Throat: no symptoms reported Respiratory: shortness of breath Cardiovascular: other (Tachycardia) Musculoskeletal: no symptoms reported Skin: no symptoms reported Psychiatric/Neurological: no symptoms reported Hematologic: no symptoms reported All Other Systems Reviewed Negative Unless Noted: Yes [id number] Hx Patient Social History Marrital Status: Smoking Status: Current Everyday Smoker 2nd Hand Smoke Exposure: Yes Alcohol Use?: No Pt feels they are or have been: No Tobacco type used: Cigarettes Immunizations Up To Date Date of Pneumonia Vaccine: May 13, 2013 Date of Influenza Vaccine: Aug 16, 2019 Past Medical History PMH As described under Assessment. Family Medical History Family History: Bladder problems G8 SISTER FH: lung cancer 19 FATHER Thyroid disease 19 MOTHER Allergies and Home Medications Allergies Coded Allergies: nitrofurantoin (Verified Allergy, Severe, RASH, 12/10/15) ITCHING AND RASH sulfamethoxazole (Verified Allergy, Severe, RASH, 12/10/15) ITCHING AND RASH trimethoprim (Verified Allergy, Severe, RASH, 12/10/15) ITCHING AND RASH azithromycin (Verified Allergy, Unknown, 08/14/14) cefixime (Verified Allergy, Unknown, 08/14/14) Patient Home Medication List Home Medication List Reviewed: Yes Acetaminophen (Tylenol) 325 Mg Capsule, 325-650 MG PO Q8H PRN for PAIN-MILD (1- 4), (Reported) Entered as Reported by: ZORAN BUTT on 06/14/21 0981 Albuterol Sulfate (Ventolin Hfa) 1 Puff Puff, 2 PUFF IH Q4H PRN for WHEEZING, (Reported) Entered as Reported by: JULIAN ALVARADO on 11/04/19 1241 Albuterol Sulfate (Albuterol Sulfate) 2.5 Mg/3 Ml (0.083 %) Vial.neb, 2.5 MG NEB DAILY, (Reported) Entered as Reported by: ZORAN BUTT on 03/27/221109 Last Action: Last Taken Edited Alprazolam (Alprazolam) 0.5 Mg Tablet, 0.25 MG PO HS, (Reported) Entered as Reported by: ZORAN BUTT on 03/27/221109 Last Action: Last Taken Edited Apixaban (Eliquis) 5 Mg Tablet, 5 MG PO BID, (Reported) Entered as Reported by: ZORAN BUTT on 03/27/221109 Last Action: Last Taken Edited Benzonatate (Tessalon Perles) 100 Mg Capsule, 200 MG PO TID Prescribed by: HALEY MARIANO on 06/20/232005 Last Action: New Order Calcium Carbonate (Calcium) 600 Mg Tablet, 600 MG PO DAILY, (Reported) Entered as Reported by: JULIAN ALVARADO on 11/04/19 124 Last Action: Last Taken Edited Cholecalciferol (Vitamin D3) (Vitamin D3) 50 Mcg Capsule, 50 MCG PO DAILY, (Reported) Entered as Reported by: JULIAN ALVARADO on 11/04/19 124 Last Action: Last Taken Edited Citalopram Hydrobromide (Citalopram HBr) 20 Mg Tablet, 20 MG PO HS, (Reported) Entered as Reported by: EVIN HOLLAND on 04/09/21 1305 Last Action: Last Taken Edited Ergocalciferol (Vitamin D2) (Vitamin D2) 1,250 Mcg (50488 Unit) Capsule, 1,250 MCG PO SUN, (Reported) Entered as Reported by: ZORAN BUTT on 03/27/221109 Last Action: Last Taken Edited Famotidine ([employer] (FAMOTIDINE)) 20 Mg Tablet, 20 MG PO BID Prescribed by: HALEY MARIANO on 06/20/231999 Last Action: New Order Formoterol Fumarate (Formoterol Fumarate) 20 Mcg/2 Ml Vial.neb, 2 ML NEB DAILY, (Reported) Entered as Reported by: ZORAN BUTT on 03/27/221109 Furosemide (Furosemide) 40 Mg Tablet, 40 MG PO DAILY Prescribed by: HALEY MARIANO on 06/20/232005 Last Action: New Order Hydrocodone/Acetaminophen (Hydrocodone-Acetamin 5-325 mg) 5 Mg-325 Mg Tablet, 5 MG PO Q6H PRN for PAIN-MODERATE (5-7), (Reported) Entered as Reported by: ZORAN BUTT on 03/27/221109 Last Action: Last Taken Edited Ipratropium [place] (Ipratropium [place]) 0.2 Mg/1 Ml Solution, 0.2 MG IH TID PRN for SHORTNESS OF BREATH, (Reported) Entered as Reported by: JULIAN ALVARADO on 11/04/19 1241 Midodrine HCl (Midodrine HCl) 2.5 Mg Tablet, 2.5 MG PO TID, (Reported) Entered as Reported by: ZORAN BUTT on 03/27/221109 Last Action: Last Taken Edited Mirtazapine (Mirtazapine) 15 Mg Tablet, 15 MG PO HS, (Reported) Entered as Reported by: ZORAN BUTT on 03/27/221109 Last Action: Last Taken Edited Ondansetron (Ondansetron Odt) 4 Mg Tab.rapdis, 4 MG PO Q6H PRN for NAUSEA/VOMITING-1ST LINE, (Reported) Entered as Reported by: ZORAN BUTT on 03/27/221109 Last Action: Last Taken Edited Potassium Chloride (K-Tab ER) 10 Meq Tablet.er, 10 MEQ PO DAILY, (Reported) Entered as Reported by: ZORAN BUTT on 06/14/21 0927 Last Action: Last Taken Edited Propranolol HCl (Propranolol HCl) 20 Mg Tablet, 20 MG PO DAILY, (Reported) Entered as Reported by: ZORAN BUTT on 03/27/22 111 Last Action: Last Taken Edited Thyroid,Pork ([place] Thyroid) 60 Mg Tablet, 120 MG PO DAILY, (Reported) Entered as Reported by: ZORAN BUTT on 04/12/21 1029 Last Action: Last Taken Edited Discontinued Medications Prednisone (Prednisone) 10 Mg Tab.ds.pk, 10 MG PO DAILY Discontinued Reason: No Longer Taking Prescribed by: JAYCOB FRIEDAMN on 03/28/22905 Last Action: Discontinued Prednisone (Prednisone) 20 Mg Tab, 20 MG PO DAILY Discontinued Reason: No Longer Taking Prescribed by: HERB PETERSON on 03/26/231711 Last Action: Discontinued Exam Vital Signs Vital Signs Date Time Temp Pulse Resp B/P (MAP) Pulse Ox O2 Delivery O2 Flow Rate FiO2 06/21/23 16:01 92 High Flow N/C 8.00 06/21/23 16:00 93 27 109/79 (86) 06/21/23 11:45 36.6 06/20/23 16:56 36 Physical Exam Constitutional: Mild respiratory distress. Chest: Good air entry bilaterally. Coarse breath sounds. CVS: Regular rhythm. No significant murmurs. No significant pedal edema. Neuro: Nonfocal Labs Laboratory Tests Test 06/20/23 22:30 06/21/23 03:46 Range/Units Blood Gas Puncture Site LEFT RADIAL Blood Gas Patient Temperature 35.9 Arterial Blood pH 7.47 H 7.37-7.43 Arterial Blood Partial Pressure CO2 30 L 35-45 MMHG Arterial Blood Partial Pressure O2 48 L 79-93 MMHG Arterial Blood HCO3 22 L 23-27 MMOL/L Arterial Blood Total CO2 22.6 21.0-31.0 MMOL/L Arterial Blood Oxygen Saturation 87 L 94-100 % Arterial Blood Base Excess -1.7 -2.5-2.5 MMOL/L [place]coe Test NA Blood Gas Ventilator Setting NO Blood Gas Inspired Oxygen 10L White Blood Count 9.6 4.3-11.0 10^3/uL Red Blood Count 2.93 L 3.80-5.11 10^6/uL Hemoglobin 8.9 L 11.5-16.0 g/dL Hematocrit 27 L 35-52 % Mean Corpuscular Volume 94 80-99 fL Mean Corpuscular Hemoglobin 30 25-34 pg Mean Corpuscular Hemoglobin Concent 33 32-36 g/dL Red Cell Distribution Width 13.7 10.0-14.5 % Platelet Count 245 130-400 10^3/uL Mean Platelet Volume 10.9 9.0-12.2 fL Sodium Level 138 135-145 MMOL/L Potassium Level 3.4 L 3.6-5.0 MMOL/L Chloride Level 105 98-107 MMOL/L Carbon Dioxide Level 21 21-32 MMOL/L Anion Gap 12 5-14 MMOL/L Blood Urea Nitrogen 21 H 7-18 MG/DL Creatinine 0.98 0.60-1.30 MG/DL Estimat Glomerular Filtration Rate 60 BUN/Creatinine Ratio 21 Glucose Level 139 H 70-105 MG/DL Lactic Acid Level 1.10 0.50-2.00 MMOL/L Calcium Level 8.6 8.5-10.1 MG/DL Magnesium Level 1.5 L 1.6-2.4 MG/DL Free Thyroxine 0.78 0.70-1.48 NG/DL ECG Impression ECG Initial ECG Rhythm: A Fib/Flutter A/P-Cardiology Assessment/Admission Diagnosis COPD exacerbation, Acute respiratory failure, Right pneumothorax, Atrial fibrillation with RVR Plan Acute respiratory failure due to COPD exacerbation and right pneumothorax. S/p chest tube done by Dr. SERRANO. Improved lung expansion. However patient continues to be short of breath and hypoxic. Will defer to the primary team. Atrial fibrillation with RVR, converted to sinus rhythm. Patient was on oral anticoagulation as an outpatient. Restart oral anticoagulation if okay with the surgery team. David for rate control. Barbara MAST MD Jun 21, 2023 16:54
[2023-06-21] MEDS: ENOXAPARIN 40 MG/0.4 ML SYRINGE SC SCH (17:44)
[2023-06-21] MEDS: dilTIAZem DRIP 125 MG/125 ML DRIP IV SCH (17:44)
[2023-06-21] MEDS: ACETAMINOPHEN 500 MG TABLET PO PRN (17:55)
[2023-06-21] MEDS: ONDANSETRON INJECTION 4 MG/2 ML (SDV) IV PRN (21:19)
[2023-06-21] MEDS: fentaNYL INJECTION 100 MCG/2 ML VIAL IVP PRN (21:20)
[2023-06-22] MEDS: NS IV 1000 ML 1,000 ML IV SCH ×3 (02:01→10:25)
[2023-06-22] MEDS: RT-Ipratropium/Albuterol NEB 3 ML VIAL IH SCH ×6 (02:40→22:20)
[2023-06-22] MEDS: ALPRAZolam 0.25 MG TABLET PO PRN ×3 (03:35→22:54)
[2023-06-22 05:30] LABS: HEMATOCRIT 27 % (35-52); HEMOGLOBIN 8.3 g/dL (11.5-16.0); MEAN CORPUSCULAR HEMOGLOBIN 30 pg (25-34); MEAN CORPUSCULAR HGB CONC 31 g/dL (32-36); MEAN CORPUSCULAR VOLUME 98 fL (80-99); PLATELET COUNT 228 10^3/uL (130-400); WHITE BLOOD COUNT 16.3 10^3/uL (4.3-11.0)
[2023-06-22 05:54] LABS: CALCIUM 7.8 MG/DL (8.5-10.1); CREATININE SERUM 0.83 MG/DL (0.60-1.30); MAGNESIUM 1.9 MG/DL (1.6-2.4); POTASSIUM 4.4 MMOL/L (3.6-5.0)
[2023-06-22] MEDS: POTASSIUM CL 10MEQ/50ML IVPB 50 ML IV SCH (05:55)
[2023-06-22] MEDS: MAGNESIUM 1 GM/100 ML IVPB 100 ML IV SCH ×3 (05:56→08:21)
[2023-06-22] MEDS: POTASSIUM CHLORIDE 20 MEQ TABLET PO SCH (05:56)
[2023-06-22] MEDS: NICOTINE 7 MG PATCH TD SCH (08:21)
[2023-06-22] MEDS: predniSONE 20 MG TABLET PO SCH (08:22)
[2023-06-22] MEDS: NICOTINE PATCH REMOVAL TP SCH (08:22)
--- NOTE | 2023-06-22 08:23 | Diagnostic Imaging Report ---
INDICATION: Dyspnea, follow-up right pneumothorax. COMPARISON: 06/21/2023. DISCUSSION: Single portable upright view of the chest was obtained. There is near complete opacification of the right hemithorax with significant volume loss. This likely represents developing large right effusion. There may be a tiny component of free air along the right lung base as seen on the prior exam. Left lung is well-aerated. Heart borders are obscured. Chest tube remains in place. IMPRESSION: 1. New near complete opacification of the right hemithorax likely due to a hydropneumothorax with a very large fluid component. Dictated by: Dictated on workstation # [id number]
--- NOTE | 2023-06-22 09:41 | Progress Note - Hospitalist ---
Subjective HPI/CC On Admission Date Seen by Provider: Jun 22, 2023 Pt is a 78yoCf with a PMH COPD, a fib who presented to the ER due to shortness of breath. She states she has not been doing well for the last few months with her COPD and will be short of breath off and on. This morning she woke up and it was much worse prompting her to come to the ER today. When she got here her heart was racing but she was noted to be in sinus tach. Shortly after that her heart rate shot up to the 140s and EKG showed a fib with RVR. She was mildly hypotensive as well. CXR was obtained which showed a right sided pneumothorax. She denies any falls or injuries recently. She denies any chest pain, She denies any nausea or vomiting, fever, leg swelling, or fever. Subjective/Events-last exam Pt reports doing better today. Breathing was worse overnight but better this morning. She has started to cough up some yellow sputum. Discussed CXR results with her and need for surgery to evaluate for chest tube. Focused Exam Lactate Level 06/20/23 14:08: Lactic Acid Level 3.02*H 06/21/23 03:46: Lactic Acid Level 1.10 Objective Exam Vital Signs Vital Signs Date Time Temp Pulse Resp B/P (MAP) Pulse Ox O2 Delivery O2 Flow Rate FiO2 06/22/23 09:14 High Flow N/C 9.00 06/22/23 09:00 77 22 99 06/22/23 08:11 36.2 06/20/23 16:56 36 Capillary Refill : General Appearance: No Apparent Distress, Anxious, Chronically ill, Thin Respiratory: Other (dminisihed breath sounds on right- could hear crackles in right apex, left lung with some wheezing but improved) Cardiovascular: Regular Rate, Rhythm, No Murmur Gastrointestinal: Normal Bowel Sounds, Soft Extremity: No Pedal Edema Neurologic/Psychiatric: Alert, Oriented x3 Results/Procedures Lab Laboratory Tests 06/22/23 04:58 Patient resulted labs reviewed. Imaging: Reviewed Imaging Report Assessment/Plan Assessment and Plan Assess & Plan/Chief Complaint Acute on Chronic Hypoxic Respiratory failure COPD Exacerbation Pneumothorax was on 15lpm on NC overnight, down to 9lpm now- baseline is 4lpm Steroids Leukocytosis today and likely due to steroids but given new opacification on CXR and sputum production will cover with abx Add Zosyn (has tolerated in the past with cephalosporin allergy) Surgery consulted for management of pneumothorax- thoravent in place but now appears to have hydropneumothorax- management per Dr Stephania Encarnacion A fib with RVR Cardizem gtt- transition to oral cardizem Lovenox for stroke ppx Cardiology consulted, appreciate recs hypothyroidism TSH 0.3- T4 normal anxiety Continue home xanax prn DVT ppx: Lovenox JAYCOB FRIEDMAN MD Jun 22, 2023 09:40
[2023-06-22] MEDS ORDERED: PIPERACILLIN/Tazobactam 4.5 GM in NS (IVPB) 100 ML 100 ML IV NR (09:45)
--- NOTE | 2023-06-22 09:51 | Tele-ICU Progress Note ---
Subjective Date Seen by a Provider: Jun 22, 2023 Time Seen by a Provider: 09:51 Subjective/Events-last exam (Tele-ICU Physician , Progress Note ) Service provided via interactive audio and video telecommunications E-CARE system to a patient admitted to ICU bed in [facility]. Patient is seen today due to persistent need of ICU care Available chart/ vitals / labs / Images reviewed Video assessment done using teleICU camera, rest of exam as per RN Discussed with RN Events overnight : Afebrile hemodynamically stable Respiratory - I/O = Drips: ns 125 Pressors- no Hospital course: (06/20) 78y/o F admitted with AFib/RVR & Lg R pneumothorax. > t Thora-Vent chest tube.. Patient on Eliquis. 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 Discussed with RN to reach out if any questions or concerns A total of 20 minutes of critical care time was devoted to this patient today, required to treat and/or prevent further deterioration of critical care condition ( as above ) . I am remotely monitoring this patient from another state. I am unable to do the bedside exam, and history/physical and pertinent information is taken from other notes in the computer and bedside staff. . Sepsis Event Evaluation Height, Weight, BMI Height: 5'3.00" Weight: 110lbs. 0.0oz. 49.759997nc; 16.99 BMI Method:Stated Focused Exam Lactate Level 06/20/23 14:08: Lactic Acid Level 3.02*H 06/21/23 03:46: Lactic Acid Level 1.10 Exam Exam Patient acknowledged, consented, and participated in this virtual visit which was conducted using real time audio/video Vital Signs Date Time Temp Pulse Resp B/P (MAP) Pulse Ox O2 Delivery O2 Flow Rate FiO2 06/22/23 09:14 High Flow N/C 9.00 06/22/23 09:00 77 22 117/60 (78) 99 High Flow N/C 15.00 06/22/23 08:11 36.2 06/22/23 08:00 66 13 117/76 (96) 98 High Flow N/C 15.00 06/22/23 07:00 68 06/22/23 07:00 66 21 108/65 (78) 97 High Flow N/C 15.00 06/22/23 06:00 66 14 118/68 (85) 99 High Flow N/C 15.00 06/22/23 05:00 73 25 121/81 (94) 96 High Flow N/C 15.00 06/22/23 04:00 High Flow N/C 10.00 06/22/23 04:00 72 10 113/60 (77) 97 High Flow N/C 15.00 06/22/23 03:00 67 10 122/64 (83) 97 High Flow N/C 15.00 06/22/23 02:40 99 High Flow N/C 8.00 06/22/23 02:00 74 19 100/55 (70) 99 High Flow N/C 15.00 06/22/23 01:00 71 06/22/23 01:00 71 10 105/64 (78) 99 High Flow N/C 15.00 06/22/23 00:00 36.5 06/22/23 00:00 92 High Flow N/C 8.00 06/22/23 00:00 74 18 96/50 (65) 97 High Flow N/C 15.00 06/21/23 23:00 16 102/55 (71) 97 High Flow N/C 15.00 06/21/23 22:06 97 High Flow N/C 10.00 06/21/23 22:00 80 21 109/63 (79) 98 High Flow N/C 15.00 06/21/23 21:00 85 18 109/72 (79) 98 High Flow N/C 15.00 06/21/23 20:42 92 High Flow N/C 8.00 06/21/23 20:00 36.7 06/21/23 20:00 19 114/55 (78) 100 High Flow N/C 15.00 06/21/23 19:00 93 06/21/23 19:00 91 32 105/78 (87) 94 High Flow N/C 15.00 06/21/23 18:42 98 High Flow N/C 8.00 06/21/23 18:00 87 20 110/58 (83) 92 High Flow N/C 15.00 06/21/23 17:44 90 113/71 06/21/23 17:00 90 18 113/71 (83) 96 High Flow N/C 15.00 06/21/23 16:01 92 High Flow N/C 8.00 06/21/23 16:00 93 27 109/79 (86) 91 High Flow N/C 15.00 06/21/23 16:00 36.4 06/21/23 15:00 90 27 115/56 (84) 99 High Flow N/C 15.00 06/21/23 14:46 93 High Flow N/C 8.00 06/21/23 14:39 93 High Flow N/C 15.00 06/21/23 14:00 86 15 109/56 (87) 94 High Flow N/C 15.00 06/21/23 13:00 93 26 104/70 (77) 92 High Flow N/C 15.00 06/21/23 12:57 102 06/21/23 12:47 88 OxyMask 15.00 06/21/23 12:35 97 High Flow N/C 15.00 06/21/23 12:18 OxyMask 15.00 06/21/23 12:00 89 OxyMask 15.00 06/21/23 12:00 94 136/70 (92) 90 High Flow N/C 5.00 06/21/23 11:45 36.6 06/21/23 11:00 90 103/66 (78) 90 High Flow N/C 5.00 06/21/23 10:29 92 High Flow N/C 4.00 06/21/23 10:00 83 109/94 (100) 90 High Flow N/C 5.00 I & O 06/22/23 06:59 Intake Total 2200 ml Output Total 1925 ml Balance 275 ml Height & Weight Height: 5'3.00" Weight: 110lbs. 0.0oz. 49.841863gp; 16.99 BMI Method:Stated General Appearance: No Apparent Distress, Anxious, Chronically ill, Thin Neck: Full Range of Motion Respiratory: Other (dminisihed breath sounds on right- could hear crackles in right apex, left lung with some wheezing but improved) Cardiovascular: Regular Rate, Rhythm, No Murmur Gastrointestinal: normal bowel sounds, non tender, soft Extremity: No Pedal Edema Neurologic/Psychiatric: Alert, Oriented x3 Skin: Normal Color Lymphatic: No Adenopathy Results Lab Laboratory Tests 06/20/23 14:08 06/21/23 03:46 06/22/23 04:58 Assessment/Plan Assessment/Plan 1 ARLEEN GIL MD Jun 22, 2023 09:51
[2023-06-22] MEDS ORDERED: dilTIAZem ER 120 MG CAPSULE PO NR (10:00)
--- NOTE | 2023-06-22 10:07 | Progress Note ---
Subjective Date Seen by a Provider: Jun 22, 2023 Time Seen by a Provider: 10:00 Subjective/Events-last exam doing ok. still has some breathing issues. cxr today worse. will place CT back on suction. Focused Exam Lactate Level 06/20/23 14:08: Lactic Acid Level 3.02*H 06/21/23 03:46: Lactic Acid Level 1.10 Objective Exam Vital Signs Date Time Temp Pulse Resp B/P (MAP) Pulse Ox O2 Delivery O2 Flow Rate FiO2 06/22/23 09:14 High Flow N/C 9.00 06/22/23 09:00 77 22 117/60 (78) 99 High Flow N/C 15.00 06/22/23 08:11 36.2 06/22/23 08:00 66 13 117/76 (96) 98 High Flow N/C 15.00 06/22/23 07:00 68 06/22/23 07:00 66 21 108/65 (78) 97 High Flow N/C 15.00 06/22/23 06:00 66 14 118/68 (85) 99 High Flow N/C 15.00 06/22/23 05:00 73 25 121/81 (94) 96 High Flow N/C 15.00 06/22/23 04:00 High Flow N/C 10.00 06/22/23 04:00 72 10 113/60 (77) 97 High Flow N/C 15.00 06/22/23 03:00 67 10 122/64 (83) 97 High Flow N/C 15.00 06/22/23 02:40 99 High Flow N/C 8.00 06/22/23 02:00 74 19 100/55 (70) 99 High Flow N/C 15.00 06/22/23 01:00 71 06/22/23 01:00 71 10 105/64 (78) 99 High Flow N/C 15.00 06/22/23 00:00 36.5 06/22/23 00:00 92 High Flow N/C 8.00 06/22/23 00:00 74 18 96/50 (65) 97 High Flow N/C 15.00 06/21/23 23:00 16 102/55 (71) 97 High Flow N/C 15.00 06/21/23 22:06 97 High Flow N/C 10.00 06/21/23 22:00 80 21 109/63 (79) 98 High Flow N/C 15.00 06/21/23 21:00 85 18 109/72 (79) 98 High Flow N/C 15.00 06/21/23 20:42 92 High Flow N/C 8.00 06/21/23 20:00 36.7 06/21/23 20:00 19 114/55 (78) 100 High Flow N/C 15.00 06/21/23 19:00 93 06/21/23 19:00 91 32 105/78 (87) 94 High Flow N/C 15.00 06/21/23 18:42 98 High Flow N/C 8.00 06/21/23 18:00 87 20 110/58 (83) 92 High Flow N/C 15.00 06/21/23 17:44 90 113/71 06/21/23 17:00 90 18 113/71 (83) 96 High Flow N/C 15.00 06/21/23 16:01 92 High Flow N/C 8.00 06/21/23 16:00 93 27 109/79 (86) 91 High Flow N/C 15.00 06/21/23 16:00 36.4 06/21/23 15:00 90 27 115/56 (84) 99 High Flow N/C 15.00 06/21/23 14:46 93 High Flow N/C 8.00 06/21/23 14:39 93 High Flow N/C 15.00 06/21/23 14:00 86 15 109/56 (87) 94 High Flow N/C 15.00 06/21/23 13:00 93 26 104/70 (77) 92 High Flow N/C 15.00 06/21/23 12:57 102 06/21/23 12:47 88 OxyMask 15.00 06/21/23 12:35 97 High Flow N/C 15.00 06/21/23 12:18 OxyMask 15.00 06/21/23 12:00 89 OxyMask 15.00 06/21/23 12:00 94 136/70 (92) 90 High Flow N/C 5.00 06/21/23 11:45 36.6 06/21/23 11:00 90 103/66 (78) 90 High Flow N/C 5.00 06/21/23 10:29 92 High Flow N/C 4.00 I & O 06/22/23 07:00 Intake Total 2200 ml Output Total 1925 ml Balance 275 ml Capillary Refill : General Appearance: No Apparent Distress Neck: Full Range of Motion Respiratory: Decreased Breath Sounds, Rhonci, Wheezing Cardiovascular: Regular Rate, Rhythm Gastrointestinal: normal bowel sounds, non tender, soft Extremity: Normal Capillary Refill Neurologic/Psychiatric: Alert, Oriented x3 Skin: Normal Color Lymphatic: No Adenopathy Results Lab Laboratory Tests 06/22/23 04:58: White Blood Count 16.3H, Red Blood Count 2.74L, Hemoglobin 8.3L, Hematocrit 27L, Mean Corpuscular Volume 98, Mean Corpuscular Hemoglobin 30, Mean Corpuscular Hemoglobin Concent 31L, Red Cell Distribution Width 14.5, Platelet Count 228, Mean Platelet Volume 11.0, Sodium Level 144, Potassium Level 4.4, Chloride Level 116H, Carbon Dioxide Level 19L, Anion Gap 9, Blood Urea Nitrogen 17, Creatinine 0.83, Estimat Glomerular Filtration Rate 73, BUN/Creatinine Ratio 20, Glucose Level 113H, Calcium Level 7.8L, Magnesium Level 1.9 Microbiology 06/20/23 MRSA Screen - Final, Complete MRSA not isolated 06/20/23 Urine Culture - Final, Complete See Comments 06/20/23 Blood Culture - Preliminary, Resulted Assessment/Plan Assessment/Plan Assess & Plan/Chief Complaint spontaneous right ptx likely secondary to ruptured bleb s/p CT placement. worsened cxr this am from recurrent ptx vs. COPD exacerbation/mucous. will place CT to suction. f/u cxr at 1400 and in am. BOB SERRANO MD Jun 22, 2023 10:07
--- NOTE | 2023-06-22 10:45 | Diagnostic Imaging Report ---
EXAMINATION: Chest radiograph, portable AP view. DATE: 06/22/2023 10:23 AM INDICATION: 78-year-old female, right-sided pneumothorax. Follow-up exam. COMPARISON: June 22, 2023 at 0718 hours. FINDINGS: There is cervical spine hardware. There is a right-sided chest tube. There is near complete opacification of right hemithorax. There is a small amount of pleural gas again noted which is unchanged. There is mediastinal shift to the right which is unchanged. There is no identified pneumothorax on the left. There is mild blunting of the left lateral costophrenic angle and streaky opacities in the left lung base. IMPRESSION: 1. Stable near complete opacification of the right hemithorax with pleural gas and right-sided chest tube noted. 2. Redemonstrated mediastinal shift to the right. 3. Streaky opacities in the left lung base which may relate to atelectasis and/or infiltrate. Dictated by: Dictated on workstation # [id number]
[2023-06-22] MEDS: fentaNYL INJECTION 100 MCG/2 ML VIAL IVP PRN ×2 (11:31→22:54)
[2023-06-22] MEDS: ACETAMINOPHEN 500 MG TABLET PO PRN (11:31)
[2023-06-22] MEDS: NS IV 500 ML 500 ML IV SCH (12:01)
--- NOTE | 2023-06-22 13:50 | Cardiology Progress Note ---
Cardiology SOAP Progress Note Subjective: severe shortness of breath Objective: I&O/Vital Signs 06/22/23 06/22/23 06/22/23 06/22/23 11:00 11:46 12:00 12:00 Temp 37.1 Pulse 72 82 B/P (MAP) 112/62 (72) 125/66 (86) Pulse Ox 94 93 O2 Delivery High Flow N/C High Flow N/C High Flow N/C O2 Flow Rate 9.00 9.00 6.00 06/22/23 06/22/23 06/22/23 06/22/23 13:00 13:00 14:00 14:29 Pulse 69 72 64 B/P (MAP) 110/64 (81) 99/64 (79) Pulse Ox 98 97 99 O2 Delivery High Flow N/C High Flow N/C High Flow N/C O2 Flow Rate 9.00 9.00 7.00 06/22/23 06/22/23 06/22/23 06/22/23 15:00 16:00 16:00 16:00 Temp 36.9 Pulse 68 76 Resp 11 B/P (MAP) 105/54 (77) 93/56 (72) Pulse Ox 95 98 O2 Delivery High Flow N/C High Flow N/C High Flow N/C O2 Flow Rate 9.00 9.00 6.00 06/22/23 06/22/23 06/22/23 06/22/23 17:00 18:00 19:00 19:00 Pulse 73 65 79 79 Resp 25 17 B/P (MAP) 101/89 (91) 94/56 (73) 111/78 (85) Pulse Ox 91 98 90 O2 Delivery High Flow N/C High Flow N/C High Flow N/C O2 Flow Rate 9.00 3.00 3.00 06/22/23 06/22/23 06/22/23 06/22/23 20:00 20:00 20:28 21:00 Temp 36.6 Pulse 74 73 Resp 28 23 B/P (MAP) 96/71 (81) 102/54 (76) Pulse Ox 96 93 98 O2 Delivery High Flow N/C High Flow N/C High Flow N/C O2 Flow Rate 3.00 6.00 3.00 06/22/23 06/22/23 06/22/23 22:00 22:20 22:25 Pulse 72 Resp 23 B/P (MAP) 103/55 (73) Pulse Ox 98 99 99 O2 Delivery High Flow N/C High Flow N/C High Flow N/C O2 Flow Rate 3.00 3.00 3.00 06/22/23 00:00 Intake Total 1250 ml Output Total 1075 ml Balance 175 ml Weight (Pounds): 110 Weight (Ounces): 0.0 Weight (Calculated Kilograms): 49.059588 Constitutional: AAO x 3, apparent distress Respiratory: accessory muscle use, respiratory distress, rhonchi Cardiovascular: regular rate-rhythm, tachycardia Neurologic/Psychiatric: no motor/sensory deficits, alert, normal mood/affect, oriented x 3 Results/Procedures: Labs Laboratory Tests 06/22/23 04:58: White Blood Count 16.3H, Red Blood Count 2.74L, Hemoglobin 8.3L, Hematocrit 27L, Mean Corpuscular Volume 98, Mean Corpuscular Hemoglobin 30, Mean Corpuscular Hemoglobin Concent 31L, Red Cell Distribution Width 14.5, Platelet Count 228, Mean Platelet Volume 11.0, Sodium Level 144, Potassium Level 4.4, Chloride Level 116H, Carbon Dioxide Level 19L, Anion Gap 9, Blood Urea Nitrogen 17, Creatinine 0.83, Estimat Glomerular Filtration Rate 73, BUN/Creatinine Ratio 20, Glucose Level 113H, Calcium Level 7.8L, Magnesium Level 1.9 Microbiology 06/20/23 MRSA Screen - Final, Complete MRSA not isolated 06/20/23 Urine Culture - Final, Complete See Comments 06/20/23 Blood Culture - Preliminary, Resulted A/P: Assessment/Dx: COPD exacerbation, Acute respiratory failure, Right pneumothorax, Atrial fibrillation with RVR Plan: Acute respiratory failure due to COPD exacerbation and right pneumothorax. S/p chest tube done by Dr. SERRANO. Improved lung expansion. However patient continues to be short of breath and hypoxic. worsening hypoxia. Atrial fibrillation with RVR, converted to sinus rhythm. Patient was on oral anticoagulation as an outpatient. Restart oral anticoagulation if okay with the surgery team. Cardizem for rate control. Focused Exam Lactate Level 06/20/23 14:08: Lactic Acid Level 3.02*H 06/21/23 03:46: Lactic Acid Level 1.10 Barbara MAST MD Jun 22, 2023 13:50
[2023-06-22] MEDS: aCETylcysteine 20% (RT/PO) 4 ML SOLN VIAL INH SCH ×2 (14:26→22:20)
[2023-06-22] MEDS: PIPERACILLIN/Tazobactam 4.5 GM in NS (IVPB) 100 ML 100 ML IV SCH ×2 (16:34→22:54)
[2023-06-23] MEDS: RT-Ipratropium/Albuterol NEB 3 ML VIAL IH SCH ×6 (03:54→22:18)
[2023-06-23] MEDS: POTASSIUM CL 10MEQ/50ML IVPB 50 ML IV SCH (04:02)
[2023-06-23] MEDS: POTASSIUM CHLORIDE 20 MEQ TABLET PO SCH (04:02)
[2023-06-23] MEDS: MAGNESIUM 1 GM/100 ML IVPB 100 ML IV SCH ×3 (04:03→06:01)
[2023-06-23] MEDS: NS IV 500 ML 500 ML IV SCH (04:22)
[2023-06-23 04:48] LABS: HEMATOCRIT 28 % (35-52); HEMOGLOBIN 8.4 g/dL (11.5-16.0); MEAN CORPUSCULAR HEMOGLOBIN 29 pg (25-34); MEAN CORPUSCULAR HGB CONC 30 g/dL (32-36); MEAN CORPUSCULAR VOLUME 98 fL (80-99); MEAN PLATELET VOLUME 11.3 fL (9.0-12.2); PLATELET COUNT 225 10^3/uL (130-400); WHITE BLOOD COUNT 12.3 10^3/uL (4.3-11.0)
[2023-06-23 05:07] LABS: CALCIUM 7.9 MG/DL (8.5-10.1); CREATININE SERUM 0.91 MG/DL (0.60-1.30); MAGNESIUM 2.5 MG/DL (1.6-2.4); POTASSIUM 5.5 MMOL/L (3.6-5.0)
[2023-06-23] MEDS: aCETylcysteine 20% (RT/PO) 4 ML SOLN VIAL INH SCH ×3 (07:38→22:18)
[2023-06-23] MEDS: predniSONE 20 MG TABLET PO SCH (08:29)
[2023-06-23] MEDS: dilTIAZem ER 120 MG CAPSULE PO SCH (08:29)
[2023-06-23] MEDS: NICOTINE 7 MG PATCH TD SCH (08:30)
[2023-06-23] MEDS: NICOTINE PATCH REMOVAL TP SCH (08:30)
[2023-06-23] MEDS: PIPERACILLIN/Tazobactam 4.5 GM in NS (IVPB) 100 ML 100 ML IV SCH ×2 (08:30→17:00)
--- NOTE | 2023-06-23 08:57 | Cardiology Progress Note ---
Subjective Date Seen by Provider: Jun 23, 2023 Time Seen by Provider: 08:54 Subjective/Events-last exam Patient was seen at bedside, sitting comfortably. No new complaint Review of Systems General: No Chills, No Night Sweats, No Fatigue, No Malaise, No Appetite, No Other HEENT: No Head Aches, No Visual Changes, No Eye Pain, No Ear Pain, No Dysphasia, No Sinus Congestion, No Post Nasal Drip, No Sore Throat, No Other Pulmonary: No Dyspnea, No Cough, No Pleuritic Chest Pain, No Other Cardiovascular: No: Chest Pain, Palpitations, Orthopnea, Paroxysmal Noc. Dyspnea, Edema, Lt Headedness, Other Focused Exam Lactate Level 06/20/23 14:08: Lactic Acid Level 3.02*H 06/21/23 03:46: Lactic Acid Level 1.10 Objective-Cardiology Exam Last Set of Vital Signs Vital Signs 06/20/23 06/23/23 06/23/23 16:56 04:00 08:00 Temp 36.4 Pulse 66 Resp 21 B/P (MAP) 113/58 (76) Pulse Ox 90 O2 Delivery High Flow N/C O2 Flow Rate 3.00 FiO2 36 I&O Intake and Output 06/23/23 00:00 Intake Total 1100 ml Output Total 1225 ml Balance -125 ml Intake Oral 1100 ml Output Urine Total 1225 ml General: Alert, Oriented X3, Cooperative HEENT: Atraumatic, PERRLA Neck: Supple, No JVD, No Thyromegaly Lungs: Clear to Auscultation, Normal Air Movement Heart: Regular Rate, Normal S1, Normal S2, No Murmurs Abdomen: Normal Bowel Sounds, Soft, No Tenderness, No Hepatosplenomegaly, No Masses Extremities: No Clubbing, No Cyanosis, No Edema, Normal Pulses, No Tenderness/Swelling Skin: No Rashes, No Breakdown, No Significant Lesion Neuro: Normal Gait, Normal Speech, Strength at 5/5 X4 Ext, Normal Tone, Sensation Intact Psych/Mental Status: Mental Status NL, Mood NL Results Lab Laboratory Tests 06/23/23 03:15 A/P-Cardiology Admission Diagnosis Shortness of breath Right pneumothorax Acute exacerbation of COPD Paroxysmal atrial fibrillation Assessment/Plan Status post spontaneous pneumothorax Still having chest tube at this time. Feeling better Acute exacerbation of COPD Improving. Paroxysmal atrial fibrillation with rapid ventricular response, converted to sinus rhythm History of atrial fibrillation diagnosed in April 2021 Maintained on oral anticoagulation currently on hold, chest tube is in place. Need to restart oral anticoagulation when deemed reasonable by the surgeon Hypertension, better Monitor blood pressure History of anemia requiring blood transfusion, Monitor H&H History of tobaccoism AKOSUA NEWELL MD Jun 23, 2023 08:57
--- NOTE | 2023-06-23 08:58 | Tele-ICU Progress Note ---
Subjective Date Seen by a Provider: Jun 23, 2023 Time Seen by a Provider: 08:58 Subjective/Events-last exam (Tele-ICU Physician , Progress Note ) Service provided via interactive audio and video telecommunications E-CARE system to a patient admitted to ICU bed in [facility]. Patient is seen today due to persistent need of ICU care Available chart/ vitals / labs / Images reviewed Video assessment done using teleICU camera, rest of exam as per RN Discussed with RN Events overnight : Afebrile hemodynamically stable Respiratory - I/O =+ Drips: ns 35 Pressors- no Hospital course: (06/20) 78y/o F admitted with AFib/RVR & Lg R pneumothorax. > t Thora-Vent chest tube.. Patient on Eliquis. 06/22- 9 L o2 , converted to sinus , RIGHT lung opacification , mostl likely mucous plug - mucomist added 06/23- cxr same , 3 lNC , no output in chest tube A/P Spontaneous secondary PTX on RIGHT - s/p 06/20-Placement of right Thora-Vent chest tube by Dr Cat - on WS since 06/21 -> cxr 06/22 with large opacification on right side - change chest tube to sucction - no output RIGHT lung opacification on cxr 06/22 - mostl likely mucous plug - mucomist added - acapella encouraged ( patient is reluctunt to do chest PT due to " 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 " - might need bronch ( patient is stable hemodynamically and Fio2 ) Possible aspiration - on Zosyn , speach eval UTI with PSA - on zosyn AECOPD - with concominat PTX, viral panel negative - on 4 L o2 - improving , ( 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 ) - cont nebs - cont steroids today PO A fib RVR , h/o PAF - converted to SINUS - cardizem po , xrds follow - AC [employer] SUPER[employer]OR with Eliquis - ON HOLD -ECHO 2020 - EF 50% , PA pressure 20 CKD - improved , will decrease IVF Hyperkalemia -Cr WNL , making urine , no K supplements , no arrhyrtmias - follow SOLOMON, -DX 2021 ( AHI 15 ) - during titration study went to CSA AHI 25 --> ASV EPAP min 4, MAx 20 , PS min ) , max 25 , rate auto - all SOLOMON /CSA resolved - hold while has PTX Lines : periph , (Central Line Necessity Reviewed) Sotomayor: + OG: Nutrition: Analgesia: Anxiety/ delirium VTE Prophylaxis: 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 Discussed with RN to reach out if any questions or concerns A total of 20 minutes of critical care time was devoted to this patient today, required to treat and/or prevent further deterioration of critical care condition ( as above ) . I am remotely monitoring this patient from another state. I am unable to do the bedside exam, and history/physical and pertinent information is taken from other notes in the computer and bedside staff. . Sepsis Event Evaluation Height, Weight, BMI Height: 5'3.00" Weight: 110lbs. 0.0oz. 49.619382ls; 16.99 BMI Method:Stated Focused Exam Lactate Level 06/20/23 14:08: Lactic Acid Level 3.02*H 06/21/23 03:46: Lactic Acid Level 1.10 Exam Exam Patient acknowledged, consented, and participated in this virtual visit which was conducted using real time audio/video Vital Signs Date Time Temp Pulse Resp B/P (MAP) Pulse Ox O2 Delivery O2 Flow Rate FiO2 06/23/23 08:00 66 21 113/58 (76) 90 High Flow N/C 3.00 06/23/23 07:40 95 High Flow N/C 3.00 06/23/23 07:40 High Flow N/C 3.00 06/23/23 07:30 58 06/23/23 07:00 55 19 100/59 (73) 96 High Flow N/C 3.00 06/23/23 06:00 57 15 112/64 (84) 97 High Flow N/C 3.00 06/23/23 05:00 60 24 105/58 (73) 96 High Flow N/C 3.00 06/23/23 04:23 97 High Flow N/C 6.00 06/23/23 04:00 60 18 99/51 (69) 96 High Flow N/C 3.00 06/23/23 04:00 36.4 06/23/23 03:00 64 16 100/62 (77) 96 High Flow N/C 3.00 06/23/23 02:00 66 100/55 (71) 97 High Flow N/C 3.00 06/23/23 01:00 71 06/23/23 01:00 71 20 106/61 (76) 93 High Flow N/C 3.00 06/23/23 00:00 93 High Flow N/C 6.00 06/23/23 00:00 67 17 98/55 (69) 96 High Flow N/C 3.00 06/23/23 00:00 36.3 06/22/23 23:00 73 16 107/56 (73) 97 High Flow N/C 3.00 06/22/23 22:25 99 High Flow N/C 3.00 06/22/23 22:20 99 High Flow N/C 3.00 06/22/23 22:00 72 23 103/55 (73) 98 High Flow N/C 3.00 06/22/23 21:00 73 23 102/54 (76) 98 High Flow N/C 3.00 06/22/23 20:28 93 High Flow N/C 6.00 06/22/23 20:00 74 28 96/71 (81) 96 High Flow N/C 3.00 06/22/23 20:00 36.6 06/22/23 19:00 79 06/22/23 19:00 79 17 111/78 (85) 90 High Flow N/C 3.00 06/22/23 18:00 65 25 94/56 (73) 98 High Flow N/C 3.00 06/22/23 17:00 73 101/89 (91) 91 High Flow N/C 9.00 06/22/23 16:00 36.9 06/22/23 16:00 High Flow N/C 6.00 06/22/23 16:00 76 11 93/56 (72) 98 High Flow N/C 9.00 06/22/23 15:00 68 105/54 (77) 95 High Flow N/C 9.00 06/22/23 14:29 99 High Flow N/C 7.00 06/22/23 14:00 64 99/64 (79) 97 High Flow N/C 9.00 06/22/23 13:00 72 110/64 (81) 98 High Flow N/C 9.00 06/22/23 13:00 69 9/10/23 12:00 High Flow N/C 6.00 06/22/23 12:00 82 125/66 (86) 93 High Flow N/C 9.00 06/22/23 11:46 37.1 06/22/23 11:00 72 112/62 (72) 94 High Flow N/C 9.00 06/22/23 10:00 75 108/94 (102) 99 High Flow N/C 9.00 06/22/23 09:14 High Flow N/C 9.00 06/22/23 09:00 77 22 117/60 (78) 99 High Flow N/C 15.00 I & O 06/23/23 06:59 Intake Total 1100 ml Output Total 1325 ml Balance -225 ml Height & Weight Height: 5'3.00" Weight: 110lbs. 0.0oz. 49.603734wl; 16.99 BMI Method:Stated General Appearance: No Apparent Distress Neck: Full Range of Motion Respiratory: Decreased Breath Sounds, Rhonci, Wheezing Cardiovascular: Regular Rate, Rhythm Gastrointestinal: normal bowel sounds, non tender, soft Extremity: Normal Capillary Refill Neurologic/Psychiatric: Alert, Oriented x3 Skin: Normal Color Lymphatic: No Adenopathy Results Lab Laboratory Tests 06/22/23 04:58 06/23/23 03:15 Assessment/Plan Assessment/Plan 1 ARLEEN GIL MD Jun 23, 2023 08:58
[2023-06-23] MEDS: NS IV 1000 ML 1,000 ML IV SCH (09:40)
--- NOTE | 2023-06-23 09:56 | Occupational Therapy Eval ---
OT Evaluation-General/PLF Medical Diagnosis Admission Date Jun 20, 2023 at 16:25 Medical Diagnosis: AVR, Onset Date: Jun 20, 2023 Therapy Diagnosis Therapy Diagnosis: weakness Height/Weight Height (Feet): 5 Height (Inches): 3.00 Weight (Pounds): 110 Weight (Ounces): 0.0 Precautions Precautions/Isolations: Fall Prevention, Standard Precautions Referral Referral Reason: Activity Tolerance, Self Care, Evaluation/Treatment Medical History Pertinent Medical History: Atrial Fib, COPD, HTN, Hypothroidism, Smoking Additional Medical History March 2023 hospital w/ COPD/pneumonia Current History 8yoCf with a [facility] COPD, a fib who presented to the ER due to shortness of breath. She states she has not been doing well for the last few months with her COPD and will be short of breath off and on. This morning she woke up and it was much worse prompting her to come to the ER today. When she got here her heart was racing but she was noted to be in sinus tach. Shortly after that her heart rate shot up to the 140s and EKG showed a fib with RVR. She was mildly hypotensive as well. CXR was obtained which showed a right sided pneumothorax. She denies any falls or injuries recently. She denies any chest pain, She denies any nausea or vomiting, fever, leg swelling, or fever Reviewed History: Yes Social History Home: Single Level Current Living Status: Alone (spouse recently) Entry Into Home: Ramp ADL-Prior Level of Function SCALE: Activities may be completed with or without assistive devices. 2-Jmxuatbboh-dpewepj completes the activity by him/herself with no assistance from a helper. 5-Set-up or Clean-up Assistance-helper sets up or cleans up; patient completes activity. [place] assists only prior to or following the activity. 4-Supervision or Touching Assistance-helper provides verbal cues and/or touching/steadying and/or contact guard assistance as patient completes activity. Assistance may be provided throughout the activity or intermittently. 3-Partial/Moderate Assistance-helper does LESS THAN HALF the effort. [place] lifts, holds or supports trunk or limbs, but provides less than half the effort. 2-Substantial/Maximal Assistance-helper does MORE THAN HALF the effort. [place] lifts or holds trunk or limbs and provides more than half the effort. 1-Efncmlpwg-panbll does ALL the effort. Patient does none of the effort to complete the activity. Or, the assistance of 2 or more helpers is required for the patient to complete the activity. If activity was not attempted, code reason: 7-Patient Refused. 9-Not Applicable-not attempted and the patient did not perform the activity before the current illness, exacerbation or injury. 10-Not Attempted due to Environmental Limitations-(lack of equipment, weather restraints, etc.). 88-Not Attempted due to Medical Conditions or Safety Concerns. ADL PLOF Comments Has a walker and other DME d/t spouse medical status. Does not use FWW. does not drive d/t KSDL Self Care: Independent Functional Cognition: Independent DME/Equipment: Grab Bars, Reachers, Shower Drive Self: No OT Current Status Subjective Agreeable to therapy, caution d/t lines and tubes. Pain Numeric Pain Scale: 0-No Pain Pain Description: Pressure (at CT site) Mental Status/Objective Patient Orientation: Person, Place, Time, Situation Attachments: Chest Tube, Drains, Sotomayor Catheter, IV, Oxygen, SCD's, Telemetry Current Glasses/Contacts: Yes Hearing Aids: No Upper Extremity ROM BUE ROM WFLS Upper Extremity Coordination INTACT Upper Extremity Sensation INTACT Upper Extremity Strength -4/5 grossly, habilitation assistant 4/5 ADL-Treatment Eating (QC): 6 Oral Hygiene (QC): 6 Shower/Bathe Self (QC): 7 (OT washed down back, Patient washed face and neck/hands wi sudsy wshclothe at bedside.) Upper Body Dressing (QC): 4 (Hospital gown change w/ assit d/t lines. Patient is able to perform ties and snaps) Lower Body Dressing (QC): 4 (CGA for transfer) On/Off Footwear (QC): 6 (supine in bed, socks handed to patient, Patient asked OT to complete. OT reports patient to do it) Toileting Hygiene (QC): 5 (set up in sitting) Education OT Patient Education: Correct positioning, Exercise program, Modified ADL techniques, Progress toward Goal/Update tx plan, Purpose of tx/functional activities, Reviewed precautions, Rehab process, Safety issues, Transfer techniques Teaching Recipient: Patient Teaching Methods: Demonstration Response to Teaching: Verbalize Understanding, Reinforcement Needed OT Mcc Goals Implementation Architect Goals Time Frame: Jun 27, 2023 Eating (QC): 6 Oral Hygiene (QC): 6 Toileting Hygiene (QC): 4 Shower/Bathe Self (QC): 4 Upper Body Dressing (QC): 5 Lower Body Dressing (QC): 5 On/Off Footwear (QC): 6 1=Demonstrate adherence to instructed precautions during ADL tasks. 2=Patient will verbalize/demonstrate understanding of assistive devices/modifications for ADL. 3=Patient will improve strength/tolerance for activity to enable patient to perform ADL's. OT Education/Plan Problem List/Assessment Assessment: Decreased Activ Tolerance, Impaired Self-Care Skills Discharge Recommendations Plan/Recommendations: Continue POC Therapy Discharge Recommendati: Post Acute OT Treatment Plan/Plan of Care Treatment,Training & Education: Yes Patient would benefit from OT for education, treatment and training to promote independence in ADL's, mobility, safety and/or upper extremity function for ADL's. Plan of Care: ADL Retraining, Concurrent Therapy, Functional Mobility, Group Exercise/Act as Ind, UE Funct Exercise/Act Treatment Duration: Jun 27, 2023 Frequency: 3 times per week (3-5 times per week) Estimated Hrs Per Day: .25 hour per day Agreement: Yes Rehab Potential: Guarded Time Start Time: 08:10 Stop Time: 08:25 DATE: Jun 23, 2023 Total Time Billed (hr/min): 15 Billed Treatment Time EVM 15 min MILANA BARON OT Jun 23, 2023 09:56
--- NOTE | 2023-06-23 10:07 | Physical Therapy Evaluation ---
PT Evaluation-General Medical Diagnosis Admission Date Jun 20, 2023 at 16:25 Medical Diagnosis: A-fib with RVR Onset Date: Jun 20, 2023 Therapy Diagnosis Therapy Diagnosis: debility/weakness Height/Weight Height (Feet): 5 Height (Inches): 3.00 Weight (Pounds): 110 Weight (Ounces): 0.0 Precautions Precautions/Isolations: Fall Prevention, Standard Precautions Weight Bear Status Right Lower Extremity: Right Full Weight Bearing Left Lower Extremity: Left Full Weight Bearing Referral Physician: Melanie Reason for Referral: Evaluation/Treatment Medical History Pertinent Medical History: Atrial Fib, COPD, HTN, Hypothroidism, Smoking Current History EMS from home secondary SOA Reviewed History: Yes Social History Home: Single Level Current Living Status: Alone Prior Prior Level of Function SCALE: Activities may be completed with or without assistive devices. 6-Rhzkcdblme-isyzrlr completes the activity by him/herself with no assistance from a helper. 5-Set-up or Clean-up Assistance-helper sets up or cleans up; patient completes activity. [place] assists only prior to or following the activity. 4-Supervision or Touching Assistance-helper provides verbal cues and/or touching/steadying and/or contact guard assistance as patient completes activity. Assistance may be provided throughout the activity or intermittently. 3-Partial/Moderate Assistance-helper does LESS THAN HALF the effort. [place] lifts, holds or supports trunk or limbs, but provides less than half the effort. 2-Substantial/Maximal Assistance-helper does MORE THAN HALF the effort. [place] lifts or holds trunk or limbs and provides more than half the effort. 4-Tvykdwncw-zwqwhl does ALL the effort. Patient does none of the effort to complete the activity. Or, the assistance of 2 or more helpers is required for the patient to complete the activity. If activity was not attempted, code reason: 7-Patient Refused. 9-Not Applicable-not attempted and the patient did not perform the activity before the current illness, exacerbation or injury. 10-Not Attempted due to Environmental Limitations-(lack of equipment, weather restraints, etc.). 88-Not Attempted due to Medical Conditions or Safety Concerns. Bed Mobility: 6 Transfers (B,C,W/C): 6 Gait: 6 Indoor Mobility (Ambulation): Independent Prior Devices Use: Walker PT Evaluation-Current Subjective Patient agrees to therapy. Objective Patient Orientation: Normal For Age Attachments: Oxygen, Sotomayor Catheter, IV ROM/Strength ROM Lower Extremities bilateral LE WFL Strength Lower Extremities 3+/5 grossly bilateral LE all planes Integumentary/Posture Bladder Incontinence: Sotomayor Cath Posture WFL Neuromuscular (Tone, Coordination, Reflexes) grossly intact with all Sensory Vision: Wears Glasses Transfers Lying to Sitting/Side of Bed(Q: 4 Sit to Stand (QC): 3 Chair/Qcf-wp-Dqwdm Xfer(QC): 3 Gait Mode of Locomotion: Walk Anticipated Mode of Locomotion: Walk Walk 10 feet (QC): 3 Walk 50 ft with 2 Turns(QC): 88 Walk 150 ft (QC): 88 Distance: 10' Gait Assistive Device: FWW Comments/Gait Description functional gait sequence Balance Sitting Static: Normal Sitting Dynamic: Normal Standing Static: Fair Standing Dynamic: Fair Assessment/Needs Patient will benefit from skilled PT to address functional strength and mobility to improve current LOF to safely return to home at maximum LOF. Noted SOA with decreased SAO2 with minimal activity. Rehab Potential: Guarded PT Correction Goals Correction Goals PT Automotive Software Engineer Goals Time Frame: Jul 12, 2023 Roll Left & Right (QC): 6 Sit to Lying (QC): 6 Lying-Sitting on Side/Bed(QC): 6 Sit to Stand (QC): 4 Chair/Ddv-ld-Qnsuo Xfer(QC): 4 Toilet Transfer (QC): 4 Walk 10 feet (QC): 4 Walk 50ft with 2 Turns (QC): 4 PT Plan Problem List Problem List: Activity Tolerance, Functional Strength, Safety, Balance, Gait, Transfer Treatment/Plan Treatment Plan: Continue Plan of Care Treatment Plan: Education, Functional Activity [place], Functional Strength, Gait, Safety, Therapeutic Exercise, Transfers Treatment Duration: Jul 12, 2023 Frequency: 6 times per week Estimated Hrs Per Day: .25 hour per day Patient and/or Family Agrees t: Yes Time Time In: 810 Time Out: 824 DATE: Jun 23, 2023 Total Billed Treatment Time: 14 Total Billed Treatment 1 visit EVMod 14 min JOHNSON FELIZ PT Jun 23, 2023 10:06
[2023-06-23] MEDS ORDERED: PROP40TA5 PO (11:06)
[2023-06-23] MEDS ORDERED: POTA-185 PO (11:06)
[2023-06-23] MEDS ORDERED: L.AC1CAP6 PO (11:06)
[2023-06-23] MEDS ORDERED: NYST1000 MT (11:06)
[2023-06-23] MEDS ORDERED: HYDR-3817 PO (11:06)
[2023-06-23] MEDS ORDERED: FAMO20TA5 PO (11:06)
[2023-06-23] MEDS ORDERED: BUDE10.7 INH (11:06)
[2023-06-23] MEDS ORDERED: FLUT16SP22 NSEACH (11:06)
[2023-06-23] MEDS ORDERED: BENZ200C51 PO (11:06)
[2023-06-23] MEDS ORDERED: CETI10TA17 PO (11:06)
[2023-06-23] MEDS ORDERED: FURO40TA4 PO (11:06)
[2023-06-23] MEDS ORDERED: ALPR0.5T7 PO (11:10)
[2023-06-23] MEDS: fentaNYL INJECTION 100 MCG/2 ML VIAL IVP PRN ×2 (12:27→23:53)
--- NOTE | 2023-06-23 13:48 | Progress Note - Hospitalist ---
AZALIA LYNN 06/23/23 1347: Subjective HPI/CC On Admission Date Seen by Provider: Jun 23, 2023 Pt is a 78yoCf with a [facility]H COPD, a fib who presented to the ER due to shortness of breath. She states she has not been doing well for the last few months with her COPD and will be short of breath off and on. This morning she woke up and it was much worse prompting her to come to the ER today. When she got here her heart was racing but she was noted to be in sinus tach. Shortly after that her heart rate shot up to the 140s and EKG showed a fib with RVR. She was mildly hypotensive as well. CXR was obtained which showed a right sided pneumothorax. She denies any falls or injuries recently. She denies any chest pain, She denies any nausea or vomiting, fever, leg swelling, or fever. Subjective/Events-last exam Patient reports she is feeling better today and is breathing better than she has been. She states she has been having a cough and coughing up yellow sputum since yesterday. She denies nausea, vomiting, fever, or leg swelling. Review of Systems Pulmonary: Cough (productive of yellow sputum) Gastrointestinal: No: Nausea, Vomiting, Abdominal Pain Focused Exam Lactate Level 06/21/23 03:46: Lactic Acid Level 1.10 Objective Exam Vital Signs Vital Signs Date Time Temp Pulse Resp B/P (MAP) Pulse Ox O2 Delivery O2 Flow Rate FiO2 06/23/23 14:00 78 29 105/53 (70) 92 High Flow N/C 3.00 06/23/23 08:00 36.3 06/20/23 16:56 36 Capillary Refill : General Appearance: No Apparent Distress, WD/WN Respiratory: No Accessory Muscle Use, No Respiratory Distress, Decreased Breath Sounds (on the right) Cardiovascular: Regular Rate, Rhythm Gastrointestinal: Normal Bowel Sounds, Non Tender, Soft Neurologic/Psychiatric: Alert, Oriented x3 Skin: Normal Color, Warm/Dry Results/Procedures Lab Laboratory Tests 06/23/23 03:15 Patient resulted labs reviewed. Imaging: Reviewed Imaging Report Assessment/Plan Assessment and Plan Assess & Plan/Chief Complaint Acute on Chronic Hypoxic Respiratory failure COPD Exacerbation Pneumothorax was on 9lpm yesterday- now at 3lpm Steroids Leukocytosis- resolving continue Zosyn (has tolerated in the past with cephalosporin allergy) Surgery consulted for management of pneumothorax- thoravent in place but now appears to have hydropneumothorax- CT chest ordered- management per Dr Cat TeleICU A fib with RVR Cardizem gtt- transition to oral cardizem Lovenox for stroke ppx Cardiology consulted, appreciate recs hypothyroidism TSH 0.3- T4 normal anxiety Continue home xanax prn DVT ppx: Lovenox MARGIE FARR MD 06/23/23 1821: Subjective HPI/CC On Admission Time Seen by Provider: 10:30 Assessment/Plan Assessment and Plan Assess & Plan/Chief Complaint Chest xray worsening, CT revealed right effusion, Thoravent unable to drain, may need additional chest tube. Dr. Cat, surgery, following and managing chest tube. Diagnosis/Problems Diagnosis/Problems (1) Acute and chronic respiratory failure with hypoxia Status: Acute (2) Pleural effusion Status: Acute (3) Pneumothorax on right (4) COPD exacerbation Status: Acute (5) Atrial fibrillation with RVR Status: Acute Supervisory-Addendum Brief Verification & Attestation Participated in pt care: history, MDM, physical Personally performed: exam, history, MDM, supervision of care Care discussed with: Medical Student Procedures: n/a Results interpretation: Verified all documentation A medical student performed and documented this service in my presence. I reviewed and verified all information documented by the medical student and made modifications to such information, when appropriate. I personally performed the physical exam and medical decision making. AZALIA LYNN Jun 23, 2023 13:47 MARGIE FARR MD Jun 23, 2023 18:21
--- NOTE | 2023-06-23 13:52 | Diagnostic Imaging Report ---
EXAMINATION: Chest 1 view HISTORY: Follow-up pneumothorax. COMPARISON: 06/22/2023. FINDINGS: Stable right-sided chest tube with stable near-complete opacification of the right hemithorax. There is also volume loss of the right chest. The left lung is clear. Stable cardiac silhouette. IMPRESSION: 1. Stable chest with stable right-sided chest tube and near-complete opacification of the right hemithorax. Dictated by: Dictated on workstation # [id number]
[2023-06-23 15:23] VITALS: BP 105/53
--- NOTE | 2023-06-23 15:57 | Diagnostic Imaging Report ---
EXAMINATION: CT chest without contrast. TECHNIQUE: Multiple contiguous axial images were obtained through the chest without the use of intravenous contrast. All CT scans use one or more of the following dose optimizing techniques: Automated exposure control, MA and/or KvP adjustment based on patient size and exam type or iterative reconstruction. HISTORY: Follow-up chest tube and right-sided hemopneumothorax. COMPARISON: 04/12/2021. Chest radiograph performed earlier the same date. FINDINGS: The heart size is within normal limits. No pericardial effusion is present. There is calcified aortic and coronary atherosclerotic plaque without aneurysm. There is no mediastinal, hilar, or axillary lymphadenopathy. A right-sided chest tube is in place with the tip near the right lung base. There is a mzwpw-si-tllbhrmp right-sided pleural effusion with small right-sided pneumothorax. The chest tube terminates prior to the pleural fluid. Patchy and consolidative opacities are seen in the right middle and lower lobes. There is a small left-sided pleural effusion with left basilar opacities. Age-indeterminate height loss is seen in the T11 vertebral body of approximately 50%. No retropulsion. Chronic height loss is seen in the T3, T5, and L1 vertebral bodies. Limited views of the upper abdominal structures demonstrate no acute abnormalities. Hypoattenuating lesions are seen in the liver. Both adrenal glands are unremarkable. IMPRESSION: 1. Agjox-bo-rtwtaftk right-sided pleural effusion with small right-sided pneumothorax. A right-sided chest tube is in place, although the tip terminates prior to contacting the pleural fluid. Consider additional chest tube in the more inferior right lung base. 2. Small left-sided pleural effusion. 3. Bibasilar opacities, right greater than left. Findings likely represent atelectasis. 4. Age-indeterminate height loss in the T11 vertebral body. Chronic height loss is seen at T3, T5, and L1. Dictated by: Dictated on workstation # [id number]
--- NOTE | 2023-06-23 17:10 | Progress Note ---
Subjective Date Seen by a Provider: Jun 23, 2023 Time Seen by a Provider: 17:00 Subjective/Events-last exam doing ok. no new cough/SOB. development small-moderate right pleural effusion. Focused Exam Lactate Level 06/21/23 03:46: Lactic Acid Level 1.10 Objective Exam Vital Signs Date Time Temp Pulse Resp B/P (MAP) Pulse Ox O2 Delivery O2 Flow Rate FiO2 06/23/23 16:00 78 38 97/62 (74) 96 High Flow N/C 3.00 06/23/23 15:59 36.2 06/23/23 15:23 36.3 78 93 06/23/23 15:00 71 20 97/52 (67) 90 High Flow N/C 3.00 06/23/23 14:42 High Flow N/C 3.00 06/23/23 14:41 93 High Flow N/C 3.00 06/23/23 14:00 78 29 105/53 (70) 92 High Flow N/C 3.00 06/23/23 13:00 67 29 109/62 (78) 93 High Flow N/C 3.00 06/23/23 12:25 72 06/23/23 11:00 67 23 103/63 (76) 100 High Flow N/C 3.00 06/23/23 10:56 94 High Flow N/C 3.00 06/23/23 10:00 81 13 104/68 (80) 92 High Flow N/C 3.00 06/23/23 09:00 72 19 98/53 (68) 90 High Flow N/C 3.00 06/23/23 08:00 66 21 113/58 (76) 90 High Flow N/C 3.00 06/23/23 08:00 36.3 06/23/23 07:40 95 High Flow N/C 3.00 06/23/23 07:40 High Flow N/C 3.00 06/23/23 07:30 58 06/23/23 07:00 55 19 100/59 (73) 96 High Flow N/C 3.00 06/23/23 06:00 57 15 112/64 (84) 97 High Flow N/C 3.00 06/23/23 05:00 60 24 105/58 (73) 96 High Flow N/C 3.00 06/23/23 04:23 97 High Flow N/C 6.00 06/23/23 04:00 60 18 99/51 (69) 96 High Flow N/C 3.00 06/23/23 04:00 36.4 06/23/23 03:00 64 16 100/62 (77) 96 High Flow N/C 3.00 06/23/23 02:00 66 100/55 (71) 97 High Flow N/C 3.00 06/23/23 01:00 71 06/23/23 01:00 71 20 106/61 (76) 93 High Flow N/C 3.00 06/23/23 00:00 93 High Flow N/C 6.00 06/23/23 00:00 67 17 98/55 (69) 96 High Flow N/C 3.00 06/23/23 00:00 36.3 06/22/23 23:00 73 16 107/56 (73) 97 High Flow N/C 3.00 06/22/23 22:25 99 High Flow N/C 3.00 06/22/23 22:20 99 High Flow N/C 3.00 06/22/23 22:00 72 23 103/55 (73) 98 High Flow N/C 3.00 06/22/23 21:00 73 23 102/54 (76) 98 High Flow N/C 3.00 06/22/23 20:28 93 High Flow N/C 6.00 06/22/23 20:00 74 28 96/71 (81) 96 High Flow N/C 3.00 06/22/23 20:00 36.6 06/22/23 19:00 79 06/22/23 19:00 79 17 111/78 (85) 90 High Flow N/C 3.00 06/22/23 18:00 65 25 94/56 (73) 98 High Flow N/C 3.00 I & O 06/23/23 07:00 Intake Total 1100 ml Output Total 1325 ml Balance -225 ml Capillary Refill : General Appearance: No Apparent Distress HEENT: PERRL/EOMI Neck: Full Range of Motion Respiratory: Decreased Breath Sounds, Rhonci, Wheezing Cardiovascular: Regular Rate, Rhythm Gastrointestinal: normal bowel sounds, non tender, soft Extremity: Normal Capillary Refill Neurologic/Psychiatric: Alert, Oriented x3 Skin: Normal Color Lymphatic: No Adenopathy Results Lab Laboratory Tests 06/23/23 03:15: White Blood Count 12.3H, Red Blood Count 2.86L, Hemoglobin 8.4L, Hematocrit 28L, Mean Corpuscular Volume 98, Mean Corpuscular Hemoglobin 29, Mean Corpuscular Hemoglobin Concent 30L, Red Cell Distribution Width 14.6H, Platelet Count 225, Mean Platelet Volume 11.3, Sodium Level 141, Potassium Level 5.5H, Chloride Level 113H, Carbon Dioxide Level 23, Anion Gap 5, Blood Urea Nitrogen 19H, Creatinine 0.91, Estimat Glomerular Filtration Rate 65, BUN/Creatinine Ratio 21, Glucose Level 116H, Calcium Level 7.9L, Magnesium Level 2.5H Microbiology 06/20/23 MRSA Screen - Final, Complete MRSA not isolated 06/20/23 Urine Culture - Final, Complete See Comments 06/20/23 Blood Culture - Preliminary, Resulted Assessment/Plan Assessment/Plan Assess & Plan/Chief Complaint spontaneous right ptx likely secondary to ruptured bleb s/p CT placement. worsened cxr this am from recurrent ptx vs. COPD exacerbation/mucous. will place CT to suction. development small-moderate right pleural effusion. will likely place large bore chest tube in am. BOB SERRANO MD Jun 23, 2023 17:10
[2023-06-23] MEDS: ALPRAZolam 0.25 MG TABLET PO PRN (17:44)
[2023-06-23] MEDS ORDERED: LIDOCAINE 1% INJ 20 ML VIAL ONE (18:27)
[2023-06-24] MEDS: PIPERACILLIN/Tazobactam 4.5 GM in NS (IVPB) 100 ML 100 ML IV SCH ×3 (00:15→17:22)
[2023-06-24] MEDS: RT-Ipratropium/Albuterol NEB 3 ML VIAL IH SCH ×6 (02:44→23:00)
[2023-06-24 04:17] LABS: HEMATOCRIT 27 % (35-52); HEMOGLOBIN 8.5 g/dL (11.5-16.0); MEAN CORPUSCULAR HEMOGLOBIN 29 pg (25-34); MEAN CORPUSCULAR HGB CONC 31 g/dL (32-36); MEAN CORPUSCULAR VOLUME 95 fL (80-99); MEAN PLATELET VOLUME 10.7 fL (9.0-12.2); PLATELET COUNT 245 10^3/uL (130-400); WHITE BLOOD COUNT 12.6 10^3/uL (4.3-11.0)
[2023-06-24 04:44] LABS: CALCIUM 7.8 MG/DL (8.5-10.1); CREATININE SERUM 0.97 MG/DL (0.60-1.30); MAGNESIUM 2.5 MG/DL (1.6-2.4); POTASSIUM 4.5 MMOL/L (3.6-5.0)
[2023-06-24] MEDS: POTASSIUM CHLORIDE 20 MEQ TABLET PO SCH (04:53)
[2023-06-24] MEDS: POTASSIUM CL 10MEQ/50ML IVPB 50 ML IV SCH (04:53)
[2023-06-24] MEDS: MAGNESIUM 1 GM/100 ML IVPB 100 ML IV SCH (04:53)
[2023-06-24] MEDS: aCETylcysteine 20% (RT/PO) 4 ML SOLN VIAL INH SCH ×3 (07:33→23:01)
--- NOTE | 2023-06-24 08:49 | Tele-ICU Progress Note ---
Subjective Date Seen by a Provider: Jun 24, 2023 Time Seen by a Provider: 08:44 Subjective/Events-last exam (Tele-ICU Physician , Progress Note ) Service provided via interactive audio and video telecommunications E-CARE system to a patient admitted to ICU bed in [facility]. Patient is seen today due to persistent need of ICU care Available chart/ vitals / labs / Images reviewed Video assessment done using teleICU camera, rest of exam as per RN Discussed with RN Events overnight : Afebrile hemodynamically stable Respiratory - I/O = Drips: ns 125 Pressors- no Hospital course: (06/20) 78y/o F admitted with AFib/RVR & Lg R pneumothorax. > t Thora-Vent chest tube.. , To get regular chest tube today.; Patient on Eliquis on hold for chest tube 06/22- converted to sinus Still has Thora vent, I reviewed CXR from today shows beter expansion of right lung and less fluid thought still has fluid in lower 1/3 of lung COPD, on 4 lpm O2, on prednisone 40 mg, albuterol A fib on po Cardizem, on Lovenox 40 SQ, had been on Eliquis, on hold for chest tube Sepsis Event Evaluation Height, Weight, BMI Height: 5'3.00" Weight: 110lbs. 0.0oz. 49.720784dr; 20.20 BMI Method:Stated Exam Exam Patient acknowledged, consented, and participated in this virtual visit which was conducted using real time audio/video Vital Signs Date Time Temp Pulse Resp B/P (MAP) Pulse Ox O2 Delivery O2 Flow Rate FiO2 06/24/23 07:35 Nasal Cannula 3.00 06/24/23 07:34 97 High Flow N/C 4.00 06/24/23 07:30 High Flow N/C 3.00 06/24/23 07:00 59 16 124/54 (77) 96 Nasal Cannula 4.00 06/24/23 07:00 58 06/24/23 06:00 64 15 113/64 (80) 99 Nasal Cannula 4.00 06/24/23 05:00 63 15 116/68 (84) 97 Nasal Cannula 4.00 06/24/23 04:00 68 18 110/65 (80) 97 Nasal Cannula 4.00 06/24/23 03:51 Nasal Cannula 4.00 06/24/23 03:00 65 17 106/62 (77) 96 Nasal Cannula 4.00 06/24/23 02:44 95 High Flow N/C 3.00 06/24/23 02:00 92 17 117/68 (84) 97 Nasal Cannula 4.00 06/24/23 01:00 90 17 99/62 (74) 98 Nasal Cannula 4.00 06/24/23 01:00 110 06/24/23 00:00 66 17 100/67 (78) 97 Nasal Cannula 4.00 06/23/23 23:36 Nasal Cannula 4.00 06/23/23 23:00 70 17 111/64 (80) 97 Nasal Cannula 4.00 06/23/23 22:20 94 High Flow N/C 3.00 06/23/23 22:00 63 17 118/67 (84) 97 Nasal Cannula 4.00 06/23/23 21:00 70 17 110/59 (76) 98 Nasal Cannula 4.00 06/23/23 20:00 73 18 106/62 (77) 98 Nasal Cannula 4.00 06/23/23 20:00 Nasal Cannula 4.00 06/23/23 19:36 79 91/74 (80) 93 Nasal Cannula 4.00 06/23/23 19:29 37.1 06/23/23 19:00 73 18 107/57 (74) 96 Nasal Cannula 4.00 06/23/23 19:00 75 06/23/23 18:00 73 17 102/57 (72) 96 High Flow N/C 3.00 06/23/23 17:00 81 17 100/57 (71) 96 High Flow N/C 3.00 06/23/23 16:00 78 38 97/62 (74) 96 High Flow N/C 3.00 06/23/23 16:00 97 High Flow N/C 4.00 06/23/23 15:59 36.2 06/23/23 15:23 36.3 78 93 06/23/23 15:00 71 20 97/52 (67) 90 High Flow N/C 3.00 06/23/23 14:42 High Flow N/C 3.00 06/23/23 14:41 93 High Flow N/C 3.00 06/23/23 14:00 78 29 105/53 (70) 92 High Flow N/C 3.00 06/23/23 13:00 67 29 109/62 (78) 93 High Flow N/C 3.00 06/23/23 12:25 72 06/23/23 12:00 97 High Flow N/C 4.00 06/23/23 11:00 67 23 103/63 (76) 100 High Flow N/C 3.00 06/23/23 10:56 94 High Flow N/C 3.00 06/23/23 10:00 81 13 104/68 (80) 92 High Flow N/C 3.00 06/23/23 09:00 72 19 98/53 (68) 90 High Flow N/C 3.00 I & O 06/24/23 07:00 Intake Total 1975 ml Output Total 1750 ml Balance 225 ml Height & Weight Height: 5'3.00" Weight: 110lbs. 0.0oz. 49.984946mc; 20.20 BMI Method:Stated General Appearance: No Apparent Distress HEENT: PERRL/EOMI Neck: Full Range of Motion Respiratory: Decreased Breath Sounds, Rhonci, Wheezing Cardiovascular: Regular Rate, Rhythm Capillary Refill: Less Than 3 Seconds Gastrointestinal: normal bowel sounds, non tender, soft Extremity: Normal Capillary Refill, No Pedal Edema Neurologic/Psychiatric: Alert, Oriented x3 Skin: Normal Color Lymphatic: No Adenopathy Results Lab Laboratory Tests 06/23/23 03:15 06/24/23 03:39 Assessment/Plan Assessment/Plan COPD/right PMNTX with Thora-vent, to get regular chest tube, Eliquis on hold will continue on suction, monitor CXR, continue prednisone, if looks better will start to taper in am A fib but has converted to NSR will continue on po Caredizem with PRN IV metoprolol Has SOLOMON, with AHI 15, CPAP on hold while has PMNTX Critical Care: Critically Ill Patient Time spent with patient (mins): 25 GIANLUCA DE LA CRUZ MD Jun 24, 2023 08:49
--- NOTE | 2023-06-24 09:38 | Occupational Ther Daily Note ---
OT Current Status-Daily Note Subjective Patient expecting CT removable and new placement on alternate side sometime today. Patient to sit upright in bed, assisted by OT, RN request no OOB until alter surgery. Mental Status/Objective Patient Orientation: Person, Place, Time, Situation Attachments: Chest Tube, Drains, Sotomayor Catheter, IV, Telemetry ADL-Treatment Patient is NOT NPO. Meal set up, grooming hygiene needs set up . Patient required assistance in bed to move upwards and bridge to move center of bed. Therapy Code Descriptions/Definitions Functional Cass Measure: 0=Not Assessed/NA 4=Minimal Assistance 1=Total Assistance 5=Supervision or Setup 2=Maximal Assistance 6=Modified Cass 3=Moderate Assistance 7=Complete IndependenceSCALE: Activities may be completed with or without assistive devices. 4-Fhklhdmjuv-aezbtxc completes the activity by him/herself with no assistance from a helper. 5-Set-up or Clean-up Assistance-helper sets up or cleans up; patient completes activity. Higdon assists only prior to or following the activity. 4-Supervision or Touching Assistance-helper provides verbal cues and/or touching/steadying and/or contact guard assistance as patient completes activity. Assistance may be provided throughout the activity or intermittently. 3-Partial/Moderate Assistance-helper does LESS THAN HALF the effort. Higdon lifts, holds or supports trunk or limbs, but provides less than half the effort. 2-Substantial/Maximal Assistance-helper does MORE THAN HALF the effort. Higdon lifts or holds trunk or limbs and provides more than half the effort. 1-Vngxacmgy-loryqs does ALL the effort. Patient does none of the effort to complete the activity. Or, the assistance of 2 or more helpers is required for the patient to complete the activity. If activity was not attempted, code reason: 7-Patient Refused. 9-Not Applicable-not attempted and the patient did not perform the activity before the current illness, exacerbation or injury. 10-Not Attempted due to Environmental Limitations-(lack of equipment, weather restraints, etc.). 88-Not Attempted due to Medical Conditions or Safety Concerns. Eating (QC): 5 Oral Hygiene (QC): 5 Education OT Patient Education: Correct positioning, Modified ADL techniques, Progress toward Goal/Update tx plan, Purpose of tx/functional activities, Reviewed precautions, Rehab process Teaching Recipient: Patient Teaching Methods: Demonstration, Discussion Response to Teaching: Verbalize Understanding, Reinforcement Needed OT Chcf Goals Chcf Goals Time Frame: Jun 27, 2023 Eating (QC): 6 Oral Hygiene (QC): 6 Toileting Hygiene (QC): 4 Shower/Bathe Self (QC): 4 Upper Body Dressing (QC): 5 Lower Body Dressing (QC): 5 On/Off Footwear (QC): 6 1=Demonstrate adherence to instructed precautions during ADL tasks. 2=Patient will verbalize/demonstrate understanding of assistive devices/modifications for ADL. 3=Patient will improve strength/tolerance for activity to enable patient to perform ADL's. OT Education/Plan Problem List/Assessment Assessment: Decreased Activ Tolerance, Decreased UE Strength, Impaired Bed Mobility, Impaired Self-Care Skills Discharge Recommendations Plan/Recommendations: Continue POC Treatment Plan/Plan of Care Treatment,Training & Education: Yes Patient would benefit from OT for education, treatment and training to promote independence in ADL's, mobility, safety and/or upper extremity function for ADL's. Plan of Care: ADL Retraining, Concurrent Therapy, Functional Mobility, Group Exercise/Act as Ind, UE Funct Exercise/Act Treatment Duration: Jun 27, 2023 Frequency: 3 times per week (3-5 times per week) Estimated Hrs Per Day: .25 hour per day Agreement: Yes Rehab Potential: Guarded Time Start Time: 07:55 Stop Time: 08:12 DATE: Jun 24, 2023 Total Time Billed (hr/min): 17 Billed Treatment Time ADL 17 min MILANA BARON OT Jun 24, 2023 09:38
--- NOTE | 2023-06-24 10:03 | Cardiology Progress Note ---
Subjective Date Seen by Provider: Jun 24, 2023 Time Seen by Provider: 10:03 Subjective/Events-last exam Patient was seen at bedside, sitting comfortably, scheduled to have another chest tube placed today. Objective-Cardiology Exam Last Set of Vital Signs Vital Signs 06/20/23 06/23/23 06/24/23 16:56 19:29 09:00 Temp 37.1 Pulse 74 Resp 20 B/P (MAP) 111/62 (78) Pulse Ox 93 O2 Delivery High Flow N/C O2 Flow Rate 3.00 FiO2 36 I&O Intake and Output 06/24/23 00:00 Intake Total 1565 ml Output Total 1500 ml Balance 65 ml Intake Oral 1165 ml IV Total 400 ml Output Urine Total 1500 ml General: Alert, Oriented X3, Cooperative HEENT: Atraumatic, PERRLA Neck: Supple, No JVD, No Thyromegaly Lungs: Clear to Auscultation, Normal Air Movement Heart: Regular Rate, Normal S1, Normal S2, No Murmurs Abdomen: Normal Bowel Sounds, Soft, No Tenderness, No Hepatosplenomegaly, No Masses Extremities: No Clubbing, No Cyanosis, No Edema, Normal Pulses, No Tenderness/Swelling Skin: No Rashes, No Breakdown, No Significant Lesion Neuro: Normal Gait, Normal Speech, Strength at 5/5 X4 Ext, Normal Tone, Sensation Intact Psych/Mental Status: Mental Status NL, Mood NL Results Lab Laboratory Tests 06/24/23 03:39 A/P-Cardiology Admission Diagnosis Shortness of breath Right pneumothorax Acute exacerbation of COPD Paroxysmal atrial fibrillation Assessment/Plan Status post spontaneous pneumothorax Still having persistent pneumothorax with small pleural effusion, scheduled to have another chest tube placed on June 24, 2023 Managed by medical team Acute exacerbation of COPD Improving. Paroxysmal atrial fibrillation with rapid ventricular response, converted to sinus rhythm History of atrial fibrillation diagnosed in April 2021 Maintained on oral anticoagulation currently on hold, chest tube is in place. Need to restart oral anticoagulation when deemed reasonable by the surgeon Hypertension, better Monitor blood pressure History of anemia requiring blood transfusion, Monitor H&H History of tobaccoism AKOSUA NEWELL MD Jun 24, 2023 10:03
[2023-06-24] MEDS: NS IV 500 ML 500 ML IV SCH ×2 (10:06→17:22)
[2023-06-24] MEDS: NS IV 1000 ML 1,000 ML IV SCH (10:07)
[2023-06-24] MEDS: NICOTINE 7 MG PATCH TD SCH (10:07)
[2023-06-24] MEDS: NICOTINE PATCH REMOVAL TP SCH (10:07)
[2023-06-24] MEDS: predniSONE 20 MG TABLET PO SCH (10:08)
[2023-06-24] MEDS: ALPRAZolam 0.25 MG TABLET PO PRN ×2 (10:08→21:07)
[2023-06-24] MEDS: dilTIAZem ER 120 MG CAPSULE PO SCH (10:08)
--- NOTE | 2023-06-24 10:11 | Diagnostic Imaging Report ---
INDICATION: Right pneumothorax and pleural effusion Frontal chest obtained at 0743 a.m. and compared to 06/23/2023. There is cardiomegaly. There is decreasing right pleural fluid with moderate residual. There is some residual infiltrate or atelectasis in right base. The left lung is clear. IMPRESSION: Cardiomegaly. Decreasing right pleural fluid and right basilar infiltrate versus atelectasis compared to the prior study. Small caliber right chest tube remains in place. Dictated by: Dictated on workstation # [id number]
[2023-06-24] MEDS: HYDROcodone/ACETAMINOPHEN 5 MG/325 MG TABLET PO PRN (10:24)
--- NOTE | 2023-06-24 11:45 | Physical Therapy Progress Note ---
Therapy Progress Note Patient declined PT stating she has been up and wants to stay in bed. PT attempted to educate and encourage patient to perform OOB activity, however, patient continued to decline. Will attempt tomorrow. JOHNSON FELIZ PT Jun 24, 2023 11:45
[2023-06-24] MEDS: meTOprolol INJECTION 5 MG/5 ML VIAL IV PRN (13:27)
--- NOTE | 2023-06-24 13:28 | Progress Note - Hospitalist ---
AZALIA LYNN 06/24/23 1328: Subjective HPI/CC On Admission Date Seen by Provider: Jun 24, 2023 Time Seen by Provider: 09:05 Pt is a 78yoCf with a PMH COPD, a fib who presented to the ER due to shortness of breath. She states she has not been doing well for the last few months with her COPD and will be short of breath off and on. This morning she woke up and it was much worse prompting her to come to the ER today. When she got here her heart was racing but she was noted to be in sinus tach. Shortly after that her heart rate shot up to the 140s and EKG showed a fib with RVR. She was mildly hypotensive as well. CXR was obtained which showed a right sided pneumothorax. She denies any falls or injuries recently. She denies any chest pain, She denies any nausea or vomiting, fever, leg swelling, or fever. Subjective/Events-last exam Patient reports she is doing similar to how she was yesterday, but then felt after having a BM. She still has a cough productive of yellow sputum and is breathing about the same as yesterday. She denies chest pain, fever, nausea, or vomiting. Objective Exam Vital Signs Vital Signs Date Time Temp Pulse Resp B/P (MAP) Pulse Ox O2 Delivery O2 Flow Rate FiO2 06/24/23 12:42 145 06/24/23 11:00 38 134/83 (100) 91 High Flow N/C 3.00 06/24/23 10:31 36.0 06/20/23 16:56 36 Capillary Refill : Less Than 3 Seconds General Appearance: No Apparent Distress, WD/WN Respiratory: Chest Non Tender, No Accessory Muscle Use, No Respiratory D istress, Decreased Breath Sounds (Right lung base) Cardiovascular: Regular Rate, Rhythm, No Edema Gastrointestinal: Normal Bowel Sounds, Non Tender, Soft Extremity: No Pedal Edema Neurologic/Psychiatric: Alert, Oriented x3 Skin: Normal Color, Warm/Dry Results/Procedures Lab Laboratory Tests 06/24/23 03:39 Patient resulted labs reviewed. Imaging: Reviewed Imaging Report Assessment/Plan Assessment and Plan Assess & Plan/Chief Complaint Acute on Chronic Hypoxic Respiratory failure COPD Exacerbation Pneumothorax O2 is stable on 3L Steroids Leukocytosis- resolving continue Zosyn (has tolerated in the past with cephalosporin allergy) Surgery consulted for management of pneumothorax- thoravent in place but now appears to have hydropneumothorax- chest tube management per Dr Stephania Encarnacion Pt had repeat CXR this morning that looks better than previous A fib with RVR Cardizem gtt- transition to oral cardizem Lovenox for stroke ppx Cardiology consulted, appreciate recs hypothyroidism TSH 0.3- T4 normal anxiety Continue home xanax prn DVT ppx: Lovenox MARGIE FARR MD 06/24/23 1556: Subjective HPI/CC On Admission Time Seen by Provider: 11:00 Assessment/Plan Assessment and Plan Assess & Plan/Chief Complaint Chest xray improved. Thoravent to suction. Surgery following, will consider secondary chest tube placement. Diagnosis/Problems Diagnosis/Problems (1) Acute and chronic respiratory failure with hypoxia Status: Acute (2) Pneumothorax on right (3) Pleural effusion Status: Acute (4) COPD exacerbation Status: Acute (5) Atrial fibrillation Status: Acute Supervisory-Addendum Brief Verification & Attestation Participated in pt care: history, MDM, physical Personally performed: exam, history, MDM, supervision of care Care discussed with: Medical Student Procedures: n/a A medical student performed and documented this service in my presence. I reviewed and verified all information documented by the medical student and made modifications to such information, when appropriate. I personally performed the physical exam and medical decision making. AZALIA LYNN Jun 24, 2023 13:28 MARGIE FARR MD Jun 24, 2023 15:56
--- NOTE | 2023-06-24 13:41 | Progress Note ---
Subjective Date Seen by a Provider: Jun 24, 2023 Time Seen by a Provider: 13:00 Subjective/Events-last exam doing better. trying to cough up mucous. states breathing slightly better. no fever/chills. no airleak. Objective Exam Vital Signs Date Time Temp Pulse Resp B/P (MAP) Pulse Ox O2 Delivery O2 Flow Rate FiO2 06/24/23 12:42 145 06/24/23 11:00 103 38 134/83 (100) 91 High Flow N/C 3.00 06/24/23 10:31 36.0 06/24/23 10:12 73 06/24/23 10:00 67 13 123/79 (94) 95 High Flow N/C 3.00 06/24/23 09:00 74 20 111/62 (78) 93 High Flow N/C 3.00 06/24/23 08:00 66 12 121/65 (83) 97 High Flow N/C 3.00 06/24/23 08:00 Nasal Cannula 4.00 06/24/23 07:35 Nasal Cannula 3.00 06/24/23 07:34 97 High Flow N/C 4.00 06/24/23 07:30 High Flow N/C 3.00 06/24/23 07:00 59 16 124/54 (77) 96 Nasal Cannula 4.00 06/24/23 07:00 58 06/24/23 06:00 64 15 113/64 (80) 99 Nasal Cannula 4.00 06/24/23 05:00 63 15 116/68 (84) 97 Nasal Cannula 4.00 06/24/23 04:00 68 18 110/65 (80) 97 Nasal Cannula 4.00 06/24/23 03:51 Nasal Cannula 4.00 06/24/23 03:00 65 17 106/62 (77) 96 Nasal Cannula 4.00 06/24/23 02:44 95 High Flow N/C 3.00 06/24/23 02:00 92 17 117/68 (84) 97 Nasal Cannula 4.00 06/24/23 01:00 90 17 99/62 (74) 98 Nasal Cannula 4.00 06/24/23 01:00 110 06/24/23 00:00 66 17 100/67 (78) 97 Nasal Cannula 4.00 06/23/23 23:36 Nasal Cannula 4.00 06/23/23 23:00 70 17 111/64 (80) 97 Nasal Cannula 4.00 06/23/23 22:20 94 High Flow N/C 3.00 06/23/23 22:00 63 17 118/67 (84) 97 Nasal Cannula 4.00 06/23/23 21:00 70 17 110/59 (76) 98 Nasal Cannula 4.00 06/23/23 20:00 73 18 106/62 (77) 98 Nasal Cannula 4.00 06/23/23 20:00 Nasal Cannula 4.00 06/23/23 19:36 79 91/74 (80) 93 Nasal Cannula 4.00 06/23/23 19:29 37.1 06/23/23 19:00 73 18 107/57 (74) 96 Nasal Cannula 4.00 06/23/23 19:00 75 06/23/23 18:00 73 17 102/57 (72) 96 High Flow N/C 3.00 06/23/23 17:00 81 17 100/57 (71) 96 High Flow N/C 3.00 06/23/23 16:00 78 38 97/62 (74) 96 High Flow N/C 3.00 06/23/23 16:00 97 High Flow N/C 4.00 06/23/23 15:59 36.2 06/23/23 15:23 36.3 78 93 06/23/23 15:00 71 20 97/52 (67) 90 High Flow N/C 3.00 06/23/23 14:42 High Flow N/C 3.00 06/23/23 14:41 93 High Flow N/C 3.00 06/23/23 14:00 78 29 105/53 (70) 92 High Flow N/C 3.00 I & O 06/24/23 07:00 Intake Total 1975 ml Output Total 1750 ml Balance 225 ml Capillary Refill : Less Than 3 Seconds General Appearance: No Apparent Distress HEENT: PERRL/EOMI Neck: Full Range of Motion Respiratory: Chest Non Tender, Decreased Breath Sounds, Rhonci, Wheezing Cardiovascular: Regular Rate, Rhythm Gastrointestinal: normal bowel sounds Extremity: Normal Capillary Refill Neurologic/Psychiatric: Alert, Oriented x3 Skin: Normal Color Lymphatic: No Adenopathy Results Lab Laboratory Tests 06/24/23 03:39: White Blood Count 12.6H, Red Blood Count 2.89L, Hemoglobin 8.5L, Hematocrit 27L, Mean Corpuscular Volume 95, Mean Corpuscular Hemoglobin 29, Mean Corpuscular Hemoglobin Concent 31L, Red Cell Distribution Width 14.7H, Platelet Count 245, Mean Platelet Volume 10.7, Sodium Level 141, Potassium Level 4.5, Chloride Level 112H, Carbon Dioxide Level 22, Anion Gap 7, Blood Urea Nitrogen 18, Creatinine 0.97, Estimat Glomerular Filtration Rate 61, BUN/Creatinine Ratio 19, Glucose Level 104, Calcium Level 7.8L, Magnesium Level 2.5H Microbiology 06/20/23 MRSA Screen - Final, Complete MRSA not isolated 06/20/23 Urine Culture - Final, Complete See Comments 06/20/23 Blood Culture - Preliminary, Resulted Assessment/Plan Assessment/Plan Assess & Plan/Chief Complaint spontaneous right ptx likely secondary to ruptured bleb s/p CT placement. CXR improved since yesterday. suction tubing changed to water seal/atrium and appears to be working better. will continue conservative for now and hold off and formal chest tube. will only place if develops significant airleak or effusion. BOB SERRANO MD Jun 24, 2023 13:41
[2023-06-24] MEDS: fentaNYL INJECTION 100 MCG/2 ML VIAL IVP PRN (21:08)
[2023-06-25] MEDS: PIPERACILLIN/Tazobactam 4.5 GM in NS (IVPB) 100 ML 100 ML IV SCH ×4 (00:29→23:37)
[2023-06-25] MEDS: RT-Ipratropium/Albuterol NEB 3 ML VIAL IH SCH ×4 (03:45→22:16)
[2023-06-25 04:36] LABS: HEMATOCRIT 27 % (35-52); HEMOGLOBIN 8.4 g/dL (11.5-16.0); MEAN CORPUSCULAR HEMOGLOBIN 31 pg (25-34); MEAN CORPUSCULAR HGB CONC 32 g/dL (32-36); MEAN CORPUSCULAR VOLUME 97 fL (80-99); MEAN PLATELET VOLUME 10.3 fL (9.0-12.2); PLATELET COUNT 272 10^3/uL (130-400); WHITE BLOOD COUNT 10.9 10^3/uL (4.3-11.0)
[2023-06-25 04:52] LABS: CALCIUM 8.1 MG/DL (8.5-10.1)
[2023-06-25 04:57] LABS: CREATININE SERUM 0.87 MG/DL (0.60-1.30)
[2023-06-25 04:59] LABS: MAGNESIUM 2.1 MG/DL (1.6-2.4)
[2023-06-25] MEDS: POTASSIUM CL 10MEQ/50ML IVPB 50 ML IV SCH (06:46)
[2023-06-25] MEDS: NS IV 500 ML 500 ML IV SCH (06:47)
[2023-06-25] MEDS: POTASSIUM CHLORIDE 20 MEQ TABLET PO SCH (06:47)
[2023-06-25] MEDS: MAGNESIUM 1 GM/100 ML IVPB 100 ML IV SCH (06:47)
[2023-06-25 07:41] VITALS: BP 105/53
[2023-06-25] MEDS: dilTIAZem ER 120 MG CAPSULE PO SCH (08:06)
[2023-06-25] MEDS: predniSONE 20 MG TABLET PO SCH (08:06)
[2023-06-25] MEDS: NICOTINE 7 MG PATCH TD SCH (08:06)
--- NOTE | 2023-06-25 08:42 | Diagnostic Imaging Report ---
INDICATION: Right pneumothorax, followup TECHNIQUE: Single view chest 6:21 AM CORRELATION STUDY: 06/24/2023 FINDINGS: Small-caliber right chest tube remains in place, perhaps slightly retracted from prior. Opacity of the right lung does persist along with a right pleural effusion. Very small right-sided pneumothorax. Does appear to be slightly reduced from prior. Left lung hyperinflated with trace left pleural effusion. Heart size and mediastinum are enlarged and prominent. Vasculature is less congested. IMPRESSION: 1. Small caliber right-sided thoracostomy tube. Slight improvement in aeration of the right lung with a moderate right pleural effusion and small pneumothorax persisting, small left pleural effusion Dictated by: Dictated on workstation # [id number]
[2023-06-25] MEDS: NICOTINE PATCH REMOVAL TP SCH (09:25)
[2023-06-25] MEDS: aCETylcysteine 20% (RT/PO) 4 ML SOLN VIAL INH SCH ×3 (10:17→22:16)
--- NOTE | 2023-06-25 10:37 | Tele-ICU Progress Note ---
Subjective Date Seen by a Provider: Jun 25, 2023 Time Seen by a Provider: 10:37 Subjective/Events-last exam (Tele-ICU Physician , Progress Note ) Service provided via interactive audio and video telecommunications E-CARE system to a patient admitted to ICU bed in [facility]. Patient is seen today due to persistent need of ICU care Available chart/ vitals / labs / Images reviewed Video assessment done using teleICU camera, rest of exam as per RN Discussed with RN Events overnight : Afebrile hemodynamically stable Respiratory - I/O =+ Drips: ns 35 - Off NOW Pressors- no Hospital course: (06/20) 78y/o F admitted with AFib/RVR & Lg R pneumothorax. > t Thora-Vent chest tube.. Patient on Eliquis. 06/22- 9 L o2 , converted to sinus , RIGHT lung opacification , mostl likely mucous plug - mucomist added 06/23- cxr same , 3 lNC , no output in chest tube , CT CHEST 06/25 - CHEST TUBE IN PLACE _ 20 cm SUCCTIONS , 20 ML output , CXR A/P Spontaneous secondary PTX on RIGHT - s/p 06/20-Placement of right Thora-Vent chest tube by Dr Cat - on WS since 06/21 -> cxr 06/22 with large opacification on right side - change chest tube to sucction - no output RIGHT lung opacification on cxr 06/22 - mostl likely mucous plug - mucomist added , - IMPROVING CT chest done - acapella encouraged ( patient is reluctunt to do chest PT due to " 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 " Possible aspiration - on Zosyn , speach eval UTI with PSA - on zosyn AECOPD - with concominat PTX, viral panel negative - on 4 L o2 - improving , ( 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 ) - cont nebs - cont steroids today PO A fib RVR , h/o PAF - converted to SINUS - cardizem po , xrds follow - 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 Discussed with RN to reach out if any questions or concerns A total of 20 minutes of critical care time was devoted to this patient today, required to treat and/or prevent further deterioration of critical care condition ( as above ) . I am remotely monitoring this patient from another state. I am unable to do the bedside exam, and history/physical and pertinent information is taken from other notes in the computer and bedside staff. . Sepsis Event Evaluation Height, Weight, BMI Height: 5'3.00" Weight: 110lbs. 0.0oz. 49.588568le; 20.81 BMI Method:Stated Exam Exam Patient acknowledged, consented, and participated in this virtual visit which was conducted using real time audio/video Vital Signs Date Time Temp Pulse Resp B/P (MAP) Pulse Ox O2 Delivery O2 Flow Rate FiO2 06/25/23 10:00 71 24 126/79 (95) 98 High Flow N/C 4.00 06/25/23 09:00 76 127/66 (86) 92 High Flow N/C 4.00 06/25/23 08:04 36.8 06/25/23 08:00 Nasal Cannula 4.00 06/25/23 08:00 64 118/62 (80) 100 High Flow N/C 3.00 06/25/23 07:41 36.3 78 93 06/25/23 07:11 63 06/25/23 07:00 63 122/68 (86) 99 High Flow N/C 3.00 06/25/23 06:00 63 126/66 (86) 100 High Flow N/C 3.00 06/25/23 05:00 70 8 115/61 (79) 98 High Flow N/C 3.00 06/25/23 04:16 Nasal Cannula 4.00 06/25/23 04:00 55 111/92 (98) 97 High Flow N/C 3.00 06/25/23 03:00 64 101/65 (77) 98 High Flow N/C 3.00 06/25/23 02:00 63 17 103/67 (79) 98 High Flow N/C 3.00 06/25/23 01:00 62 06/25/23 01:00 62 13 104/64 (77) 98 High Flow N/C 3.00 06/25/23 00:15 66 19 104/69 (81) 93 High Flow N/C 3.00 06/25/23 00:02 Nasal Cannula 4.00 06/25/23 00:00 36.6 06/25/23 00:00 65 14 94/55 (68) 98 High Flow N/C 3.00 06/24/23 23:00 62 13 104/56 (72) 99 High Flow N/C 3.00 06/24/23 22:00 63 11 106/60 (76) 98 High Flow N/C 3.00 06/24/23 21:00 78 106/63 (79) 99 High Flow N/C 3.00 06/24/23 20:00 75 108/58 (80) 99 High Flow N/C 3.00 06/24/23 20:00 Nasal Cannula 4.00 06/24/23 20:00 36.8 06/24/23 19:02 97 Nasal Cannula 2.00 06/24/23 19:00 70 06/24/23 19:00 70 14 113/59 (75) 99 High Flow N/C 3.00 06/24/23 18:00 66 17 94/61 (72) 98 High Flow N/C 3.00 06/24/23 17:00 72 13 112/60 (77) 96 High Flow N/C 3.00 06/24/23 16:00 62 17 92/53 (66) 96 High Flow N/C 3.00 06/24/23 16:00 Nasal Cannula 4.00 06/24/23 15:00 60 17 97/58 (71) 96 High Flow N/C 3.00 06/24/23 14:00 37.4 06/24/23 14:00 89 17 95/52 (66) 96 High Flow N/C 3.00 06/24/23 13:00 131 21 108/83 (91) 96 High Flow N/C 3.00 06/24/23 12:42 145 06/24/23 12:00 114 14 109/65 (80) 96 High Flow N/C 3.00 06/24/23 12:00 Nasal Cannula 4.00 06/24/23 11:00 103 38 134/83 (100) 91 High Flow N/C 3.00 I & O 06/25/23 07:00 Intake Total 1350 ml Output Total 1770 ml Balance -420 ml Height & Weight Height: 5'3.00" Weight: 110lbs. 0.0oz. 49.248843po; 20.81 BMI Method:Stated General Appearance: No Apparent Distress HEENT: PERRL/EOMI Neck: Full Range of Motion Respiratory: Chest Non Tender, Decreased Breath Sounds, Rhonci, Wheezing Cardiovascular: Regular Rate, Rhythm Capillary Refill: Less Than 3 Seconds Gastrointestinal: normal bowel sounds Extremity: Normal Capillary Refill Neurologic/Psychiatric: Alert, Oriented x3 Skin: Normal Color Lymphatic: No Adenopathy Results Lab Laboratory Tests 06/24/23 03:39 06/25/23 04:05 Assessment/Plan Assessment/Plan 1 ARLEEN GIL MD Jun 25, 2023 10:37
--- NOTE | 2023-06-25 11:26 | Physical Therapy Daily Note ---
PT Daily Note-Current Subjective Patient sitting in chair upon PT arrival, agreeable to treatment. Patient rates pain at 6/10 in knees and back and refuses gait training at this time. Pain Section J - Health Conditions 1. Rarely or not at all 2. Occasionally 3. Frequently 4. Almost constantly 8. Unable to answer Pain Effect on Sleep: 3 Pain Interference with Therapy: 3 Pain Interference w/Day-to-Day: 3 Mental Status Patient Orientation: Person, Place, Time, Situation Transfers SCALE: Activities may be completed with or without assistive devices. 3-Meupdjqray-mjrxrgg completes the activity by him/herself with no assistance from a helper. 5-Set-up or Clean-up Assistance-helper sets up or cleans up; patient completes activity. [place] assists only prior to or following the activity. 4-Supervision or Touching Assistance-helper provides verbal cues and/or touching/steadying and/or contact guard assistance as patient completes activity. Assistance may be provided throughout the activity or intermittently. 3-Partial/Moderate Assistance-helper does LESS THAN HALF the effort. [place] lifts, holds or supports trunk or limbs, but provides less than half the effort. 2-Substantial/Maximal Assistance-helper does MORE THAN HALF the effort. [place] lifts or holds trunk or limbs and provides more than half the effort. 7-Figeiihkm-hcoogz does ALL the effort. Patient does none of the effort to complete the activity. Or, the assistance of 2 or more helpers is required for the patient to complete the activity. If activity was not attempted, code reason: 7-Patient Refused. 9-Not Applicable-not attempted and the patient did not perform the activity before the current illness, exacerbation or injury. 10-Not Attempted due to Environmental Limitations-(lack of equipment, weather restraints, etc.). 88-Not Attempted due to Medical Conditions or Safety Concerns. Sit to Stand (QC): 4 Chair/Gsa-ov-Zhzza Xfer(QC): 4 Weight Bearing Right Lower Extremity: Right Full Weight Bearing Left Lower Extremity: Left Full Weight Bearing Gait Training Does the Patient Walk?: No and Walking Goal IS indicated Exercises Supine Ex: Ankle pumps, Quad Set, Glut sets Supine Reps: 20 Seated Therapy Exercises: Long arc quads, Hip flexion, Hamstring Curls, Hip abd/add Seated Reps: 20 Assessment Current Status: Fair Progress Patient performed LE therapeutic exercise as listed above. Initially refused OOB treatment due to pain, however wound nurse came into room and requested to examine patients sacrocoxygeal region and apply dressing. Patient requires min A for sit to stand and CGA for balance during stance. Nurse also placed a cushion in chair for patient. Patient in chair post treatment with all needs met, nursing notified, call light in reach. PT Retirement Goals Manager Game Goals PT Retirement Goals Time Frame: Jul 12, 2023 Roll Left & Right (QC): 6 Sit to Lying (QC): 6 Lying-Sitting on Side/Bed(QC): 6 Sit to Stand (QC): 4 Chair/Hii-tj-Heelq Xfer(QC): 4 Toilet Transfer (QC): 4 Walk 10 feet (QC): 4 Walk 50ft with 2 Turns (QC): 4 PT Plan Treatment/Plan Treatment Plan: Continue Plan of Care Treatment Plan: Bed Mobility, Education, Functional Activity [place], Functional Strength, Gait, Safety, Therapeutic Exercise, Transfers Treatment Duration: Jul 12, 2023 Frequency: 6 times per week Estimated Hrs Per Day: .25 hour per day Patient and/or Family Agrees t: Yes Safety Risks/Education Patient Education: Transfer Techniques Teaching Recipient: Patient Teaching Methods: Demonstration, Discussion Response to Teaching: Verbalize Understanding, Return Demonstration Time Time In: 1041 Time Out: 1055 DATE: Jun 25, 2023 Total Billed Treatment Time: 14 Total Billed Treatment Visit, EX MERVAT SAVAGE PT Jun 25, 2023 11:26
--- NOTE | 2023-06-25 12:41 | ST Dysphagia Evaluation ---
Speech Evaluation-General Medical Diagnosis AVR, Right Pneumothorax Onset Date: Jun 20, 2023 Therapy Diagnosis Therapy Diagnosis: Intact Oropharyngeal Swallow Function Precautions Precautions: Fall, Pressure Ulcer, Aspiration Precautions/Isolations: Aspiration, Fall Prevention, Standard Precautions, Pressure Ulcer Referral Referring Physician: Dr. Fuentes Reason for Referral: Evaluation/Treatment Medical History Pertinent Medical History: Atrial Fib, COPD, HTN, Hypothroidism, Smoking Reviewed History: Yes Social History Current Living Status: Alone (spouse recently) Speech PLF/Current-Dysphagia Prior Level of Function The patient stated she consumed a regular consistency diet with thin liquids prior to admission. The patient reported she does have dentures but does not consistently wear them to eat due to a poor fit. Without the dentures, the patient states she remains able to masticate dry, solid consistencies. The patient does not report oropharyngeal swallowing concerns or difficulties at this time. Subjective The patient was seated upright in bed, awake and alert, upon entrance to her room by the clinician. The patient greeted the clinician and was agreeable to participation in the clinical bedside swallowing evaluation. Per patient, "I had trouble with corn over the weekend and now I can't have anything regular." The patient's RN stated the patient choked on a piece of corn over the weekend and was downgraded to a soft and bite size diet consistency. The patient is frustrated because she is requesting biscuits and gravy and cannot have the desired item on the current diet consistency. Cognitive Status Patient Orientation: Person, Place, Situation Oral Motor Skills Dentition: Edentalous (The patient does not wish to place dentures at this time.) Current Food Consistancy: Regular, Thin Liquids Ability to Follow Directions: Good Oral Expression Ability: No Impairment Voice Voice Phonatory-Based Quality: Normal Voice Pitch: Normal Voice Loudness: Normal Face Facial Symmetry: Symmetrical Oral-Facial Assessment Oral-Facial Dentition: Normal Labial Seal Description: Normal Smile: Normal Lingual Protrusion: Normal Lingual ROM: Normal Volitional Dry Swallow: Yes Voluntary Cough: Yes Can Clear Throat Volitionally: Yes Productive Cough: Yes Productive Throat Clear: Yes Dysphagia Evaluation Consistencies Presented: Regular, Thin Liquid, Pureed Mildly prolonged mastication was present with dry solid consistencies. The leonidas ent independently utilized a thin liquid wash to aid in the dry bolus formation and posterior oral transfer. Laryngeal elevation was present to palpation. The patient was provided multiple straw drinks of thin liquid, teaspoons of puree, and solid consistencies. The patient does not display overt s/s of suspected aspiration with any consistency provided. The patient's vocal quality remained clear following each trial. Dietary Recommendations: Regular Liquid Recommendations: Thin Recommendations: - Regular consistency diet with thin liquids, as tolerated. - Fully upright and alert for P.O. intake. - Slow rate of P.O. intake. Cease P.O. intake during periods of respiratory fatigue. - Small bites and sips, only. - Additional sauces and gravies, as available. - Provided pills one at a time. - Monitor for s/s of suspected aspiration with P.O. intake. If demonstrated, please place the patient N.P.O. and contact speech pathology. Speech pathology discussed the recommendations with the patient, placed the updated diet consistency on the white board, and provided the RN with updated information. Additional education was provided to the patient regarding her baseline diagnosis of COPD and how COPD can increase her risk of aspiration. The patient verbalized comprehension of the discussed material. Speech Short Term Goals Short Term Goals Short Term Goals 1. The patient will demonstrate safe swallowing precautions with 90% accuracy, independently. Time Frame-STG: Two Days. Speech Custodial Goals Paintings Conservator Goals 1. The patient will tolerate the least restrictive diet consistency without s/s of suspected aspiration. Time Frame: Five Days. Speech-Plan Treatment Plan Speech Therapy Treatment Plan: Continue Plan of Care Treatment Duration: Jun 27, 2023 Frequency: 2 times per week Estimated Hrs Per Day: .25 hour per day Rehab Potential: Fair Pt/Family Agrees to Plan: Yes Safety Risks/Education Teaching Recipient: Patient Teaching Methods: Discussion Response to Teaching: Verbalize Understanding, Return Demonstration Education Topics Provided: Results, Recommendations, Plan of Care, Safe Swallowing Precautions Time Speech Therapy Time In: 09:45 Speech Therapy Time Out: 10:06 DATE: Jun 25, 2023 Total Billed Time: 21 Billed Treatment Time 1ITZ DYST LOY, ELIZABETH ST Jun 25, 2023 12:41
--- NOTE | 2023-06-25 12:53 | Progress Note - Hospitalist ---
AZALIA LYNN 06/25/23 1253: Subjective HPI/CC On Admission Date Seen by Provider: Jun 25, 2023 Time Seen by Provider: 09:10 Pt is a 78yoCf with a PMH COPD, a fib who presented to the ER due to shortness of breath. She states she has not been doing well for the last few months with her COPD and will be short of breath off and on. This morning she woke up and it was much worse prompting her to come to the ER today. When she got here her heart was racing but she was noted to be in sinus tach. Shortly after that her heart rate shot up to the 140s and EKG showed a fib with RVR. She was mildly hypotensive as well. CXR was obtained which showed a right sided pneumothorax. She denies any falls or injuries recently. She denies any chest pain, She denies any nausea or vomiting, fever, leg swelling, or fever. Subjective/Events-last exam Patient states her cough and breathing seem to be a little better today. She reports some tenderness and pain around her Thoravent but the extra cushion they added helps. She denies any chest pain, fever, nausea, vomiting, leg swelling. Review of Systems General: No Chills Pulmonary: Cough (productive of yellow sputum) Cardiovascular: No: Chest Pain, Edema Gastrointestinal: No: Nausea, Vomiting, Abdominal Pain Objective Exam Vital Signs Vital Signs Date Time Temp Pulse Resp B/P (MAP) Pulse Ox O2 Delivery O2 Flow Rate FiO2 06/25/23 13:06 70 24 117/54 (75) 97 High Flow N/C 2.00 06/25/23 08:04 36.8 06/20/23 16:56 36 Capillary Refill : Less Than 3 Seconds General Appearance: No Apparent Distress, WD/WN Respiratory: Chest Non Tender, No Accessory Muscle Use, No Respiratory Distress, Decreased Breath Sounds Cardiovascular: Regular Rate, Rhythm, No Edema, No Murmur Gastrointestinal: Normal Bowel Sounds, Non Tender, Soft Neurologic/Psychiatric: Alert, Oriented x3 Skin: Normal Color, Warm/Dry Results/Procedures Lab Laboratory Tests 06/25/23 04:05 Patient resulted labs reviewed. Imaging: Reviewed Imaging Report Assessment/Plan Assessment and Plan Assess & Plan/Chief Complaint Acute on Chronic Hypoxic Respiratory failure COPD Exacerbation Pneumothorax O2 is stable on 2L Continue steroids Leukocytosis- resolving continue Zosyn (has tolerated in the past with cephalosporin allergy) Surgery consulted for management of pneumothorax- thoravent in place but now appears to have hydropneumothorax or pleural effusion- chest tube management per Dr Stephania Encarnacion Repeat CXR this morning that looks similar/slightly better compared to yesterday Physical therapy consulted Encourage getting up and moving- removed catheter to help with this A fib with RVR Cardizem gtt- transition to oral cardizem Lovenox for stroke ppx Cardiology consulted, appreciate recs hypothyroidism TSH 0.3- T4 normal anxiety Continue home xanax prn DVT ppx: Lovenox MARGIE FARR MD 06/25/23 1855: Subjective HPI/CC On Admission Time Seen by Provider: 09:55 Assessment/Plan Assessment and Plan Assess & Plan/Chief Complaint Thoravent in place. Surgery considering second chest tube placement. Continue Zosyn, sputum culture with Pseudomonas. Diagnosis/Problems Diagnosis/Problems (1) Acute and chronic respiratory failure with hypoxia Status: Acute (2) Pneumothorax on right Status: Acute (3) Pleural effusion Status: Acute (4) COPD exacerbation Status: Acute (5) Atrial fibrillation with RVR Status: Acute Supervisory-Addendum Brief Verification & Attestation Participated in pt care: history, MDM, physical Personally performed: exam, history, MDM, supervision of care Care discussed with: Medical Student Procedures: n/a A medical student performed and documented this service in my presence. I reviewed and verified all information documented by the medical student and made modifications to such information, when appropriate. I personally performed the physical exam and medical decision making. AZALIA LYNN Jun 25, 2023 12:53 MARGIE FARR MD Jun 25, 2023 18:55
[2023-06-25] MEDS ORDERED: NON-FORMULARY MEDICATION 1 EA EA (Cetirizine HCl 10 MG) PO SCH (13:15)
[2023-06-25] MEDS: LORATADINE 10 MG TABLET PO SCH (13:40)
--- NOTE | 2023-06-25 14:45 | Occ Therapy Progress Note ---
Therapy Progress Note PATIENT DECLINED OCCUPATIONAL THERAPY SESSION THIS DATE MILANA BARON OT Jun 25, 2023 14:45
--- NOTE | 2023-06-25 17:08 | Cardiology Progress Note ---
Subjective Date Seen by Provider: Jun 25, 2023 Time Seen by Provider: 17:07 Subjective/Events-last exam Patient was seen at bedside, sitting comfortably, feeling better. No new complain Review of Systems General: No Chills, No Night Sweats, No Fatigue, No Malaise, No Appetite, No Other HEENT: No Head Aches, No Visual Changes, No Eye Pain, No Ear Pain, No Dysphasia, No Sinus Congestion, No Post Nasal Drip, No Sore Throat, No Other Pulmonary: No Dyspnea, No Cough, No Pleuritic Chest Pain, No Other Cardiovascular: No: Chest Pain, Palpitations, Orthopnea, Paroxysmal Noc. Dyspnea, Edema, Lt Headedness, Other Objective-Cardiology Exam Last Set of Vital Signs Vital Signs 06/20/23 06/25/23 06/25/23 16:56 15:00 15:36 Temp 36.6 B/P (MAP) 117/64 (81) FiO2 36 I&O Intake and Output 06/25/23 00:00 Intake Total 1810 ml Output Total 2070 ml Balance -260 ml Intake Oral 1710 ml IV Total 100 ml Output Urine Total 2050 ml Chest Tube Drainage Total 20 ml General: Alert, Oriented X3, Cooperative HEENT: Atraumatic, PERRLA Neck: Supple, No JVD, No Thyromegaly Lungs: Clear to Auscultation, Normal Air Movement Heart: Regular Rate, Normal S1, Normal S2, No Murmurs Abdomen: Normal Bowel Sounds, Soft, No Tenderness, No Hepatosplenomegaly, No Ma sses Extremities: No Clubbing, No Cyanosis, No Edema, Normal Pulses, No Tender ness/Swelling Skin: No Rashes, No Breakdown, No Significant Lesion Neuro: Normal Gait, Normal Speech, Strength at 5/5 X4 Ext, Normal Tone, Sensation Intact Psych/Mental Status: Mental Status NL, Mood NL Results Lab Laboratory Tests 06/25/23 04:05 A/P-Cardiology Admission Diagnosis Shortness of breath Right pneumothorax Acute exacerbation of COPD Paroxysmal atrial fibrillation Assessment/Plan Status post spontaneous pneumothorax Chest x-ray showing improvement. Still have the chest tube. Managed by medical team Acute exacerbation of COPD Improving. Paroxysmal atrial fibrillation with rapid ventricular response, converted to sinus rhythm History of atrial fibrillation diagnosed in April 2021 Maintained on oral anticoagulation currently on hold, chest tube is in place. Need to restart oral anticoagulation when deemed reasonable by the surgeon Hypertension, better Monitor blood pressure History of anemia requiring blood transfusion, Monitor H&H History of tobaccoism AKOSUA NEWELL MD Jun 25, 2023 17:08
--- NOTE | 2023-06-25 18:10 | Progress Note ---
Subjective Date Seen by a Provider: Jun 25, 2023 Time Seen by a Provider: 18:00 Subjective/Events-last exam doing ok. no new SOB. still has productive cough. no airleak identified on atrium water seal. Objective Exam Vital Signs Date Time Temp Pulse Resp B/P (MAP) Pulse Ox O2 Delivery O2 Flow Rate FiO2 06/25/23 16:00 72 32 98 High Flow N/C 2.00 06/25/23 16:00 Nasal Cannula 2.00 06/25/23 15:36 36.6 High Flow N/C 2.00 06/25/23 15:00 70 13 117/64 (81) 100 High Flow N/C 2.00 06/25/23 14:12 74 20 113/72 (86) 99 High Flow N/C 2.00 06/25/23 14:00 66 28 113/72 (86) 97 High Flow N/C 2.00 06/25/23 13:06 70 24 117/54 (75) 97 High Flow N/C 2.00 06/25/23 13:00 70 28 117/54 (75) 97 High Flow N/C 2.00 06/25/23 12:09 68 06/25/23 12:00 67 19 106/92 (97) 97 High Flow N/C 2.00 06/25/23 12:00 Nasal Cannula 2.00 06/25/23 11:04 72 15 122/69 (86) 97 High Flow N/C 2.00 06/25/23 11:00 69 23 122/69 (86) 96 High Flow N/C 4.00 06/25/23 10:17 97 Nasal Cannula 2.00 06/25/23 10:00 71 24 126/79 (95) 98 High Flow N/C 4.00 06/25/23 09:00 76 127/66 (86) 92 High Flow N/C 4.00 06/25/23 08:04 36.8 06/25/23 08:00 Nasal Cannula 4.00 06/25/23 08:00 64 118/62 (80) 100 High Flow N/C 3.00 06/25/23 07:41 36.3 78 93 06/25/23 07:11 63 06/25/23 07:00 63 122/68 (86) 99 High Flow N/C 3.00 06/25/23 06:00 63 126/66 (86) 100 High Flow N/C 3.00 06/25/23 05:00 70 8 115/61 (79) 98 High Flow N/C 3.00 06/25/23 04:16 Nasal Cannula 4.00 06/25/23 04:00 55 111/92 (98) 97 High Flow N/C 3.00 06/25/23 03:00 64 101/65 (77) 98 High Flow N/C 3.00 06/25/23 02:00 63 17 103/67 (79) 98 High Flow N/C 3.00 06/25/23 01:00 62 06/25/23 01:00 62 13 104/64 (77) 98 High Flow N/C 3.00 06/25/23 00:15 66 19 104/69 (81) 93 High Flow N/C 3.00 06/25/23 00:02 Nasal Cannula 4.00 06/25/23 00:00 36.6 06/25/23 00:00 65 14 94/55 (68) 98 High Flow N/C 3.00 06/24/23 23:00 62 13 104/56 (72) 99 High Flow N/C 3.00 06/24/23 22:00 63 11 106/60 (76) 98 High Flow N/C 3.00 06/24/23 21:00 78 106/63 (79) 99 High Flow N/C 3.00 06/24/23 20:00 75 108/58 (80) 99 High Flow N/C 3.00 06/24/23 20:00 Nasal Cannula 4.00 06/24/23 20:00 36.8 06/24/23 19:02 97 Nasal Cannula 2.00 06/24/23 19:00 70 06/24/23 19:00 70 14 113/59 (75) 99 High Flow N/C 3.00 I & O 06/25/23 07:00 Intake Total 1350 ml Output Total 1770 ml Balance -420 ml Capillary Refill : Less Than 3 Seconds General Appearance: No Apparent Distress HEENT: PERRL/EOMI Neck: Full Range of Motion Respiratory: Chest Non Tender, Decreased Breath Sounds, Rhonci, Wheezing Cardiovascular: Regular Rate, Rhythm Gastrointestinal: normal bowel sounds, non tender, soft Extremity: Normal Capillary Refill Neurologic/Psychiatric: Alert, Oriented x3 Skin: Normal Color, Warm/Dry Lymphatic: No Adenopathy Results Lab Laboratory Tests 06/25/23 04:05: White Blood Count 10.9, Red Blood Count 2.75L, Hemoglobin 8.4L, Hematocrit 27L, Mean Corpuscular Volume 97, Mean Corpuscular Hemoglobin 31, Mean Corpuscular Hemoglobin Concent 32, Red Cell Distribution Width 14.8H, Platelet Count 272, Mean Platelet Volume 10.3, Sodium Level 140, Potassium Level 5.0, Chloride Level 111H, Carbon Dioxide Level 22, Anion Gap 7, Blood Urea Nitrogen 17, Creatinine 0.87, Estimat Glomerular Filtration Rate 69, BUN/Creatinine Ratio 20, Glucose Level 98, Calcium Level 8.1L, Magnesium Level 2.1 Microbiology 06/20/23 MRSA Screen - Final, Complete MRSA not isolated 06/20/23 Urine Culture - Final, Complete See Comments 06/20/23 Blood Culture - Final, Complete Assessment/Plan Assessment/Plan Assess & Plan/Chief Complaint spontaneous right ptx likely secondary to ruptured bleb s/p CT placement. CXR improved since yesterday. suction tubing changed to water seal/atrium and appears to be working better. will continue conservative for now and hold off and formal chest tube. will only place if develops significant airleak or effusion. BOB SERRANO MD Jun 25, 2023 18:10
[2023-06-25] MEDS: APIXABAN 5 MG TABLET PO SCH (20:00)
[2023-06-25] MEDS: ALPRAZolam 0.25 MG TABLET PO PRN (20:05)
[2023-06-25] MEDS: guaiFENesin 600 MG TABLET PO SCH (22:13)
[2023-06-26 06:05] LABS: HEMATOCRIT 29 % (35-52); MEAN CORPUSCULAR HEMOGLOBIN 30 pg (25-34); MEAN CORPUSCULAR HGB CONC 31 g/dL (32-36); MEAN CORPUSCULAR VOLUME 97 fL (80-99); PLATELET COUNT 345 10^3/uL (130-400); WHITE BLOOD COUNT 11.4 10^3/uL (4.3-11.0)
[2023-06-26 06:16] LABS: CALCIUM 8.4 MG/DL (8.5-10.1); CREATININE SERUM 0.99 MG/DL (0.60-1.30); MAGNESIUM 1.9 MG/DL (1.6-2.4); POTASSIUM 4.1 MMOL/L (3.6-5.0)
[2023-06-26] MEDS: POTASSIUM CL 10MEQ/50ML IVPB 50 ML IV SCH (06:24)
[2023-06-26] MEDS: MAGNESIUM 1 GM/100 ML IVPB 100 ML IV SCH (06:25)
[2023-06-26] MEDS: POTASSIUM CHLORIDE 20 MEQ TABLET PO SCH (06:25)
[2023-06-26] MEDS: RT-Ipratropium/Albuterol NEB 3 ML VIAL IH SCH ×3 (07:09→22:43)
[2023-06-26] MEDS: aCETylcysteine 20% (RT/PO) 4 ML SOLN VIAL INH SCH ×3 (07:09→22:43)
--- NOTE | 2023-06-26 08:08 | Cardiology Progress Note ---
Subjective Date Seen by Provider: Jun 26, 2023 Time Seen by Provider: 08:07 Subjective/Events-last exam Patient was seen at bedside, laying down comfortably. Feeling better. No new complaint. Review of Systems General: No Chills, No Night Sweats, No Fatigue, No Malaise, No Appetite, No O ther HEENT: No Head Aches, No Visual Changes, No Eye Pain, No Ear Pain, No Dys phasia, No Sinus Congestion, No Post Nasal Drip, No Sore Throat, No Other Pulmonary: No Dyspnea, No Cough, No Pleuritic Chest Pain, No Other Cardiovascular: No: Chest Pain, Palpitations, Orthopnea, Paroxysmal Noc. Dyspnea, Edema, Lt Headedness, Other Objective-Cardiology Exam Last Set of Vital Signs Vital Signs 06/20/23 06/25/23 06/26/23 16:56 20:00 06:00 Temp 36.5 Pulse 74 Resp 18 B/P (MAP) 106/77 (87) FiO2 36 I&O Intake and Output 06/26/23 00:00 Intake Total 1100 ml Output Total 1450 ml Balance -350 ml Intake Oral 1100 ml Output Urine Total 1450 ml # Voids 4 # Bowel Movements 3 General: Alert, Oriented X3, Cooperative HEENT: Atraumatic, PERRLA Neck: Supple, No JVD, No Thyromegaly Lungs: Clear to Auscultation, Normal Air Movement Heart: Regular Rate, Normal S1, Normal S2, No Murmurs Abdomen: Normal Bowel Sounds, Soft, No Tenderness, No Hepatosplenomegaly, No Masses Extremities: No Clubbing, No Cyanosis, No Edema, Normal Pulses, No Tenderness/Swelling Skin: No Rashes, No Breakdown, No Significant Lesion Neuro: Normal Gait, Normal Speech, Strength at 5/5 X4 Ext, Normal Tone, Sen sation Intact Psych/Mental Status: Mental Status NL, Mood NL Results Lab Laboratory Tests 06/26/23 04:44 A/P-Cardiology Admission Diagnosis Shortness of breath Right pneumothorax Acute exacerbation of COPD Paroxysmal atrial fibrillation Assessment/Plan Status post spontaneous pneumothorax Chest x-ray showing improvement. Still have the chest tube. Managed by medical team Acute exacerbation of COPD Improving. Paroxysmal atrial fibrillation with rapid ventricular response, converted to sinus rhythm History of atrial fibrillation diagnosed in April 2021 Maintained on oral anticoagulation currently on hold, chest tube is in place. Need to restart oral anticoagulation when deemed reasonable by the surgeon Hypertension, better Monitor blood pressure History of anemia requiring blood transfusion, Monitor H&H History of tobaccoism AKOSUA NEWELL MD Jun 26, 2023 08:08
--- NOTE | 2023-06-26 09:38 | Diagnostic Imaging Report ---
Indication: History of pneumothorax. Comparison one-day prior. Small bore right chest catheter projects in stable alignment. Incidental right apical azygous fissure present. No detectable pneumothorax at follow-up. However a right pleural fluid volume likely at least slightly decreased. There is improvements in bibasilar atelectasis. Underlying emphysema chronic. Impression: Likely slight reduction in right pleural fluid. No visible pneumothorax. No adverse change. Dictated by: Dictated on workstation # [id number]
[2023-06-26] MEDS: PIPERACILLIN/Tazobactam 4.5 GM in NS (IVPB) 100 ML 100 ML IV SCH ×3 (10:26→23:35)
[2023-06-26] MEDS: APIXABAN 5 MG TABLET PO SCH ×2 (10:26→20:12)
[2023-06-26] MEDS: LORATADINE 10 MG TABLET PO SCH (10:26)
[2023-06-26] MEDS: dilTIAZem ER 120 MG CAPSULE PO SCH (10:26)
[2023-06-26] MEDS: guaiFENesin 600 MG TABLET PO SCH ×2 (10:26→20:12)
[2023-06-26] MEDS: NICOTINE 7 MG PATCH TD SCH (10:27)
[2023-06-26] MEDS: NICOTINE PATCH REMOVAL TP SCH (10:30)
--- NOTE | 2023-06-26 11:41 | Progress Note - Hospitalist ---
AZALIA LYNN 06/26/23 1141: Subjective HPI/CC On Admission Date Seen by Provider: Jun 26, 2023 Time Seen by Provider: 09:15 Pt is a 78yoCf with a PMH COPD, a fib who presented to the ER due to shortness of breath. She states she has not been doing well for the last few months with her COPD and will be short of breath off and on. This morning she woke up and it was much worse prompting her to come to the ER today. When she got here her heart was racing but she was noted to be in sinus tach. Shortly after that her heart rate shot up to the 140s and EKG showed a fib with RVR. She was mildly hypotensive as well. CXR was obtained which showed a right sided pneumothorax. She denies any falls or injuries recently. She denies any chest pain, She denies any nausea or vomiting, fever, leg swelling, or fever. Subjective/Events-last exam Patient says she feels she is breathing a little better today and has a good appetite. She says she was able to move around more yesterday. She states her cough has improved and she is coughing up significantly less sputum. She states she had an allergy attack last night and has had a runny nose and sinus drainage in her throat, they gave her Mucinex for last night which helped. She denies chest pain, fever, nausea or vomiting. Her thoravent was clamped last night and she restarted her Eliquis. Review of Systems HEENT: Post Nasal Drip Pulmonary: Cough Cardiovascular: No: Chest Pain Gastrointestinal: No: Nausea, Vomiting, Abdominal Pain Objective Exam Vital Signs Vital Signs Date Time Temp Pulse Resp B/P (MAP) Pulse Ox O2 Delivery O2 Flow Rate FiO2 06/26/23 10:00 79 105/58 (74) 98 High Flow N/C 2.00 06/25/23 20:00 36.5 18 06/20/23 16:56 36 Capillary Refill : Less Than 3 Seconds General Appearance: No Apparent Distress, WD/WN Respiratory: Chest Non Tender, No Accessory Muscle Use, No Respiratory Distress, Decreased Breath Sounds Cardiovascular: Regular Rate, Rhythm, No Edema, No Murmur, Normal Peripheral Pulses Gastrointestinal: Normal Bowel Sounds, Non Tender, Soft Extremity: No Pedal Edema Neurologic/Psychiatric: Alert, Oriented x3, Normal Mood/Affect Skin: Normal Color, Warm/Dry Results/Procedures Lab Laboratory Tests 06/26/23 04:44 Patient resulted labs reviewed. Imaging: Reviewed Imaging Report Assessment/Plan Assessment and Plan Assess & Plan/Chief Complaint Acute on Chronic Hypoxic Respiratory failure COPD Exacerbation Pneumothorax O2 is stable on 2L Continue steroids Leukocytosis- resolving continue Zosyn (has tolerated in the past with cephalosporin allergy) Surgery consulted for management of pneumothorax- thoravent in place and was clamped last night- chest tube management per Dr Stephania WallaceU Repeat CXR this morning shows improvement compared to yesterday Physical therapy consulted Encourage ambulating- removed catheter yesterday to help with this A fib with RVR Cardizem gtt- transition to oral cardizem Lovenox for stroke ppx Cardiology consulted, appreciate recs hypothyroidism TSH 0.3- T4 normal anxiety Continue home xanax prn Allergies Mucinex prn DVT ppx: Lovenox MARGIE FARR MD 06/26/23 1638: Subjective HPI/CC On Admission Time Seen by Provider: 10:00 Assessment/Plan Assessment and Plan Assess & Plan/Chief Complaint Chest tube clamped. Chest xray continues to improve. Symptoms improving, oxygen requirement below baseline. Surgery following, managing Thoravent. Diagnosis/Problems Diagnosis/Problems (1) Acute and chronic respiratory failure with hypoxia Status: Acute (2) Pneumothorax on right Status: Acute (3) Pleural effusion Status: Acute (4) COPD exacerbation Status: Acute (5) Atrial fibrillation with RVR Status: Acute Supervisory-Addendum Brief Verification & Attestation Participated in pt care: history, MDM, physical Personally performed: exam, history, MDM, supervision of care Care discussed with: Medical Student Procedures: n/a A medical student performed and documented this service in my presence. I reviewed and verified all information documented by the medical student and made modifications to such information, when appropriate. I personally performed the physical exam and medical decision making. AZALIA LYNN Jun 26, 2023 11:41 MARGIE FARR MD Jun 26, 2023 16:38
[2023-06-26] MEDS: ALPRAZolam 0.25 MG TABLET PO PRN ×2 (11:50→19:54)
--- NOTE | 2023-06-26 11:55 | Speech Therapy Daily Note ---
Speech Daily Progress Note Subjective Date Seen by Provider: Jun 26, 2023 Time Seen by Provider: 09:45 The patient was seated upright in the bed, awake and alert, upon entrance to the room by the clinician. The patient greeted the clinician appropriately and was agreeable to participation in the speech pathology treatment session. Objective Per patient, she has experienced excellent tolerance of the upgraded diet consis tency (regular) and has not displayed s/s of suspected aspiration. The patient politely deferred solid trials on this date, as she recently completed his breakfast. The patient was agreeable to trials of thin liquid via straw. No s/s of suspected aspiration were present with thin liquids. Safe swallowing precautions (specifically a reduced rate of intake and ceasing P.O. intake dur ing periods of respiratory fatigue) and s/s of suspected aspiration were reviewed. The patient reported comprehension of the material and denied additional questions for the clinician at this time. At this time, the patient has met goals placed by speech pathology and should continue the current plan of care in place (diet consistency and safe swallowing precautions). ST will discharge the patient from skilled services at this time. Please re-consult speech pathology with additional concerns. Assessment Assessment Current Status: Good Progress Treatment Plan Discontinue ST, Goals Met Speech Short Term Goals Short Term Goals Short Term Goals 1. The patient will demonstrate safe swallowing precautions with 90% accuracy, independently. Time Frame-STG: Two Days. Speech Patcher Goals Residential Goals 1. The patient will tolerate the least restrictive diet consistency without s/s of suspected aspiration. Time Frame: Five Days. Speech-Plan Treatment Plan Speech Therapy Treatment Plan: Discontinue ST, Goals Met Treatment Duration: Jun 27, 2023 Frequency: 2 times per week Estimated Hrs Per Day: .25 hour per day Rehab Potential: Fair Pt/Family Agrees to Plan: Yes Safety Risks/Education Teaching Recipient: Patient Teaching Methods: Discussion Response to Teaching: Verbalize Understanding Education Topics Provided: Results, Recommendations, Plan of Care, Safe Swallowing Precautions Time Speech Therapy Time In: 09:45 Speech Therapy Time Out: 10:00 DATE: Jun 26, 2023 Total Billed Time: 15 Billed Treatment Time 1SANJU[address] Jun 26, 2023 11:55
--- NOTE | 2023-06-26 14:33 | Physical Therapy Progress Note ---
Therapy Progress Note Patient on hold per RN due to respiratory issues. Will reassess tomorrow JOHNSON Chong PT Jun 26, 2023 14:33
--- NOTE | 2023-06-26 14:57 | Occ Therapy Progress Note ---
Therapy Progress Note Patient on hold per RN due to respiratory issues. Will reassess next available opportunity MILANA BARON OT Jun 26, 2023 14:57
[2023-06-26] MEDS: RT-ALBUTEROL SULF 2.5 MG/3 ML PRE-MIX VIAL INH PRN (16:34)
[2023-06-26] MEDS: HYDROcodone/ACETAMINOPHEN 5 MG/325 MG TABLET PO PRN ×2 (17:11→22:37)
[2023-06-26] MEDS: fentaNYL INJECTION 100 MCG/2 ML VIAL IVP PRN ×3 (19:54→23:35)
[2023-06-27] MEDS ORDERED: ALPRAZolam 0.25 MG TABLET PO ONE (01:15)
[2023-06-27] MEDS: fentaNYL INJECTION 100 MCG/2 ML VIAL IVP PRN ×4 (01:20→13:05)
[2023-06-27 04:11] LABS: HEMATOCRIT 34 % (35-52); HEMOGLOBIN 10.8 g/dL (11.5-16.0); MEAN CORPUSCULAR HEMOGLOBIN 30 pg (25-34); MEAN CORPUSCULAR HGB CONC 32 g/dL (32-36); MEAN CORPUSCULAR VOLUME 95 fL (80-99); MEAN PLATELET VOLUME 9.2 fL (9.0-12.2); PLATELET COUNT 352 10^3/uL (130-400); WHITE BLOOD COUNT 17.2 10^3/uL (4.3-11.0)
[2023-06-27 04:30] LABS: CALCIUM 8.3 MG/DL (8.5-10.1); CREATININE SERUM 0.88 MG/DL (0.60-1.30); MAGNESIUM 1.6 MG/DL (1.6-2.4)
[2023-06-27] MEDS: POTASSIUM CHLORIDE 20 MEQ TABLET PO SCH (05:14)
[2023-06-27] MEDS: MAGNESIUM 1 GM/100 ML IVPB 100 ML IV SCH (05:14)
[2023-06-27] MEDS: POTASSIUM CL 10MEQ/50ML IVPB 50 ML IV SCH (05:14)
[2023-06-27] MEDS: RT-Ipratropium/Albuterol NEB 3 ML VIAL IH SCH (07:22)
[2023-06-27] MEDS: aCETylcysteine 20% (RT/PO) 4 ML SOLN VIAL INH SCH (07:23)
[2023-06-27 08:09] LABS: ABG BASE EXCESS -0.3 MMOL/L (-2.5-2.5); ABG OXYGEN SATURATION 87 % (94-100); ABG PCO2 41 MMHG (35-45); ABG PH 7.39 (7.37-7.43); ABG PO2 49 MMHG (79-93); ABG TCO2 25.3 MMOL/L (21.0-31.0)
[2023-06-27] MEDS: PIPERACILLIN/Tazobactam 4.5 GM in NS (IVPB) 100 ML 100 ML IV SCH ×3 (08:09→23:33)
[2023-06-27 08:10] LABS: ALLENS TEST POSITIVE; INSPIRED O2 2 L; PATIENT TEMP 37.2; VENTILATOR NO
--- NOTE | 2023-06-27 08:36 | Physical Therapy Progress Note ---
Therapy Progress Note Patient on Hold per RN due to decline in medical status. Will reassess next week. JOHNSON FELIZ PT Jun 27, 2023 08:36
[2023-06-27] MEDS: meTOprolol INJECTION 5 MG/5 ML VIAL IV PRN (08:39)
--- NOTE | 2023-06-27 08:49 | Occ Therapy Progress Note ---
Therapy Progress Note Per RN patient on hold MILANA BARON OT Jun 27, 2023 08:49
--- NOTE | 2023-06-27 08:56 | Diagnostic Imaging Report ---
INDICATION: Pneumothorax, pleural effusion, chest tube TECHNIQUE: Single view chest 8:20 AM CORRELATION STUDY: 06/26/2023 FINDINGS: Small-caliber tube over the right lung apex remains. No appreciable pneumothorax. Azygos lobe present. [id number] right pleural effusion, generally stable. Left lung well-inflated and clear. Underlying changes suggesting COPD. Mediastinal structures appear generally stable. IMPRESSION: 1. Small caliber right-sided chest tube without appreciable pneumothorax. Generally stable appearance of a moderate right pleural effusion. Dictated by: Dictated on workstation # [id number]
[2023-06-27 09:03] LABS: ALANINE AMINOTRANSFERASE 33 U/L (0-55); ALBUMIN 3.2 GM/DL (3.2-4.5); ALKALINE PHOSPHATASE 37 U/L (40-136); BILIRUBIN,DIRECT 0.2 MG/DL (0.0-0.3); BILIRUBIN,INDIRECT 0.1 MG/DL; BILIRUBIN,TOTAL 0.3 MG/DL (0.1-1.0); LIPASE 47 U/L (8-78); TOTAL PROTEIN 5.8 GM/DL (6.4-8.2)
[2023-06-27] MEDS ORDERED: NS 100 ML (IVPB) BAG IV ONE (09:30)
[2023-06-27] MEDS ORDERED: IOHEXOL 350 MG/ML 100 ML (OMNIPAQUE 350) VIAL IV ONE (09:30)
[2023-06-27] MEDS ORDERED: HOLD METFORMIN - RECEIVED CONTRAST 20 ML VIAL IV SCH (09:30)
--- NOTE | 2023-06-27 09:48 | Diagnostic Imaging Report ---
PROCEDURE: CT chest, abdomen, and pelvis with contrast. TECHNIQUE: Multiple contiguous axial images were obtained through the chest, abdomen, and pelvis after the administration of intravenous contrast. Auto Exposure Controls were utilized during the CT exam to meet ALARA standards for radiation dose reduction. INDICATION: Pleural effusions and hypoxia as well as pneumothorax. Patient also has increasing white blood cell count. Correlation is made with CT chest from [address] CHEST: Right-sided chest tube remains in place. No significant pneumothorax is identified on today's study. There is a small left pleural effusion. Small right pleural effusion is noted. The pleural fluid on the right does appear to be decreased since 4 days earlier. There is a fairly significant consolidation and air bronchograms in the right lower lobe, similar to prior exam. Some mild atelectasis or infiltrate posterior left lower lobe as well, similar to prior. No pericardial fluid is detected. IMPRESSION: 1. Resolution of right-sided pneumothorax. Right chest tube remains in place. 2. Bilateral effusions, right greater. Pleural fluid on the right does appear to be slightly decreased when compared with study 4 days earlier. There continues to be significant consolidation with air bronchograms in the right lower lobe. CT abdomen and pelvis: The liver contains low-attenuation lesions consistent with cysts. The largest is in the inferior right lobe measuring 4.2 cm. There is moderate distention to the gallbladder. No biliary ductal dilatation is seen. The pancreas and spleen are unremarkable. No adrenal mass is detected. Kidneys are unremarkable. Aorta is heavily calcified but nonaneurysmal. Bowel loops appear to be nonobstructed. There is moderate stool throughout the colon. No free fluid or fluid collection is seen. There is bladder distention. There is some gas within the bladder, perhaps owing to recent instrumentation. Uterus is unremarkable. The bony structures demonstrate chronic superior endplate fracture of L4. T11 compression fracture is noted, similar to 4 days earlier. IMPRESSION: 1. Hepatic cysts. 2. There is moderate gallbladder distention. Gallbladder ultrasound may be useful for further evaluation. 3. Moderate stool in the colon. There is no bowel obstruction. No free fluid or fluid collection within the abdomen or pelvis is seen. 4. Moderate bladder distention. There is some gas in the bladder. Please correlate for recent instrumentation. 5. No other significant abnormality is detected. Dictated by: Dictated on workstation # [id number]
[2023-06-27 09:53] LABS: BAND NEUTROPHILS 1 %; EOSINOPHILS % (MANUAL) 4 %; LYMPHOCYTES % (MANUAL) 14 %; MONOCYTES % (MANUAL) 3 %; NEUTROPHILS % (MANUAL) 77 %; RBC MORPH NORMAL
[2023-06-27] MEDS ORDERED: dilTIAZem INJ 25 MG/5 ML VIAL IVP ONE (10:00)
[2023-06-27 10:09] LABS: BACTERIA,URINE NEGATIVE /HPF; BILIRUBIN,URINE NEGATIVE (NEGATIVE); CLARITY,URINE CLEAR; COLOR,URINE YELLOW; GLUCOSE, URINE (UA) NEGATIVE (NEGATIVE); KETONES,URINE NEGATIVE (NEGATIVE); LEUKOCYTE ESTERASE ,URINE NEGATIVE (NEGATIVE); NITRITE,URINE NEGATIVE (NEGATIVE); PH,URINE 6.5 (5-9); PROTEIN,URINE NEGATIVE (NEGATIVE)
[2023-06-27] MEDS: [UNRECOGNIZED DRUG - OTHER] IV SCH (10:35)
[2023-06-27] MEDS: NICOTINE 7 MG PATCH TD SCH (10:35)
[2023-06-27] MEDS: NICOTINE PATCH REMOVAL TP SCH (10:35)
--- NOTE | 2023-06-27 11:21 | Progress Note ---
Subjective Date Seen by a Provider: Jun 27, 2023 Time Seen by a Provider: 11:00 Subjective/Events-last exam doing ok. no change in resp status. complains of some abd pain. CT may indicate mild acalculous cholecystitis. no fever/chills. tolerating diet. Objective Exam Vital Signs Date Time Temp Pulse Resp B/P (MAP) Pulse Ox O2 Delivery O2 Flow Rate FiO2 06/27/23 11:00 98 101/70 (80) 94 High Flow N/C 2.00 06/27/23 10:35 124 110/78 06/27/23 10:34 113 110/78 06/27/23 10:00 125 20 112/67 (72) High Flow N/C 2.00 06/27/23 09:00 115 28 103/78 (85) 92 High Flow N/C 2.00 06/27/23 08:00 146 25 108/79 (91) 94 High Flow N/C 2.00 06/27/23 07:23 98 Nasal Cannula 2.00 06/27/23 07:00 121 06/27/23 07:00 176 21 136/86 (104) 100 High Flow N/C 2.00 06/27/23 06:00 141 18 101/87 (92) 96 High Flow N/C 2.00 06/27/23 05:00 122 122/72 (89) 92 High Flow N/C 2.00 06/27/23 04:19 36.6 06/27/23 04:08 36.6 06/27/23 04:00 104 133/80 (97) 98 High Flow N/C 2.00 06/27/23 03:00 131 117/84 (95) 100 High Flow N/C 2.00 06/27/23 02:00 114 139/79 (99) 97 High Flow N/C 2.00 06/27/23 01:00 126 121/85 (97) 96 High Flow N/C 2.00 06/27/23 01:00 129 06/27/23 00:00 112 134/92 (106) 97 High Flow N/C 2.00 06/26/23 23:39 37.2 06/26/23 23:00 81 132/70 (90) 95 High Flow N/C 2.00 06/26/23 22:43 98 Nasal Cannula 2.00 06/26/23 22:00 85 127/74 (91) 93 High Flow N/C 2.00 06/26/23 21:00 85 140/73 (95) 98 High Flow N/C 2.00 06/26/23 20:00 95 Nasal Cannula 2.00 06/26/23 20:00 99 122/66 (84) 94 High Flow N/C 2.00 06/26/23 19:47 36.7 High Flow N/C 2.00 06/26/23 19:00 91 06/26/23 19:00 93 118/68 (85) 95 High Flow N/C 2.00 06/26/23 18:00 90 119/75 (90) 95 High Flow N/C 2.00 06/26/23 17:00 89 129/63 (85) 95 High Flow N/C 2.00 06/26/23 16:35 96 Nasal Cannula 2.00 06/26/23 16:00 Nasal Cannula 2.00 06/26/23 16:00 68 122/64 (83) 95 High Flow N/C 2.00 06/26/23 15:43 36.5 06/26/23 14:37 100 Nasal Cannula 2.00 06/26/23 14:36 100 Nasal Cannula 2.00 06/26/23 13:00 83 06/26/23 12:00 35.6 06/26/23 12:00 80 125/63 (83) 98 High Flow N/C 2.00 06/26/23 12:00 Nasal Cannula 2.00 I & O 06/27/23 07:00 Intake Total 500 ml Balance 500 ml Capillary Refill : Less Than 3 Seconds General Appearance: No Apparent Distress HEENT: PERRL/EOMI Neck: Full Range of Motion Respiratory: Decreased Breath Sounds, Rhonci, Wheezing Cardiovascular: Regular Rate, Rhythm Gastrointestinal: normal bowel sounds, soft, tenderness Extremity: Normal Capillary Refill Neurologic/Psychiatric: Alert, Oriented x3 Skin: Normal Color Lymphatic: No Adenopathy Results Lab Laboratory Tests 06/27/23 03:48: White Blood Count 17.2H, Red Blood Count 3.61L, Hemoglobin 10.8L, Hematocrit 34L , Mean Corpuscular Volume 95, Mean Corpuscular Hemoglobin 30, Mean Corpuscular Hemoglobin Concent 32, Red Cell Distribution Width 14.9H, Platelet Count 352, Mean Platelet Volume 9.2, Neutrophils % (Manual) 77, Lymphocytes % (Manual) 14, Monocytes % (Manual) 3, Eosinophils % (Manual) 4, Band Neutrophils 1, Blood Morphology Comment NORMAL, Sodium Level 138, Potassium Level 4.0, Chloride Level 104, Carbon Dioxide Level 23, Anion Gap 11, Blood Urea Nitrogen 9, Creatinine 0.88, Estimat Glomerular Filtration Rate 68, BUN/Creatinine Ratio 10, Glucose Level 90, Calcium Level 8.3L, Magnesium Level 1.6 06/27/23 05:48: Total Bilirubin 0.3, Direct Bilirubin 0.2, Indirect Bilirubin 0.1, Aspartate Amino Transf (AST/SGOT) 16, Alanine Aminotransferase (ALT/SGPT) 33, Alkaline Phosphatase 37L, Troponin I < 0.028, Total Protein 5.8L, Albumin 3.2, Lipase 47 06/27/23 08:05: Blood Gas Puncture Site RIGHT RADIAL, Blood Gas Patient Temperature 37.2, Arterial Blood pH 7.39, Arterial Blood Partial Pressure CO2 41, Arterial Blood Partial Pressure O2 49L, Arterial Blood HCO3 24, Arterial Blood Total CO2 25.3, Arterial Blood Oxygen Saturation 87L, Arterial Blood Base Excess -0.3, [place] Test POSITIVE, Blood Gas Ventilator Setting NO, Blood Gas Inspired Oxygen 2 L 06/27/23 09:54: Urine Color YELLOW, Urine Clarity CLEAR, Urine pH 6.5, Urine Specific [place] 1.020, Urine Protein NEGATIVE, Urine Glucose (UA) NEGATIVE, Urine Ketones NEGATIVE, Urine Nitrite NEGATIVE, Urine Bilirubin NEGATIVE, Urine Urobilinogen 0.2, Urine Leukocyte Esterase NEGATIVE, Urine RBC (Auto) NEGATIVE, Urine RBC NONE, Urine WBC NONE, Urine Crystals NONE, Urine Bacteria NEGATIVE, Urine Casts NONE, Urine Mucus NEGATIVE, Urine Culture Indicated NO 06/27/23 10:46: Microbiology 06/20/23 MRSA Screen - Final, Complete MRSA not isolated 06/20/23 Urine Culture - Final, Complete See Comments 06/20/23 Blood Culture - Final, Complete Assessment/Plan Assessment/Plan Assess & Plan/Chief Complaint spontaneous right ptx likely secondary to ruptured bleb s/p CT placement. chest tube removed. has right pleural effusion however likely blood and clotted. recommend continued monitoring. had abd pain and likely has an early or mile acalculous vs. calculous cholecystitis. do not recommend surgery which would require intubation and ventilation. patient now found to be covid+ and has severe COPD. only recommend conservative measures with low fat diet and continuation of abx. BOB SERRANO MD Jun 27, 2023 11:21
--- NOTE | 2023-06-27 11:23 | Progress Note - Hospitalist ---
AZALIA LYNN 06/27/23 1123: Subjective HPI/CC On Admission Date Seen by Provider: Jun 27, 2023 Time Seen by Provider: 08:05 Pt is a 78yoCf with a PMH COPD, a fib who presented to the ER due to shortness of breath. She states she has not been doing well for the last few months with her COPD and will be short of breath off and on. This morning she woke up and it was much worse prompting her to come to the ER today. When she got here her heart was racing but she was noted to be in sinus tach. Shortly after that her heart rate shot up to the 140s and EKG showed a fib with RVR. She was mildly hypotensive as well. CXR was obtained which showed a right sided pneumothorax. She denies any falls or injuries recently. She denies any chest pain, She denies any nausea or vomiting, fever, leg swelling, or fever. Subjective/Events-last exam Patient is not feeling well today, on entering she looks in lots of pain. She says "please dont make me talk, it hurts". She states she is having abdominal pain and some headache that came on quickly yesterday evening. She says the abdominal pain is a 6/10 and spreads across her whole abdomen. She is moaning and was given fentanyl multiple times throughout the night for pain. She denies chest pain, nausea, or vomiting. Objective Exam Vital Signs Vital Signs Date Time Temp Pulse Resp B/P (MAP) Pulse Ox O2 Delivery O2 Flow Rate FiO2 06/27/23 12:00 98 101/66 (84) 91 High Flow N/C 2.00 06/27/23 10:00 20 06/27/23 04:19 36.6 Capillary Refill : Less Than 3 Seconds General Appearance: WD/WN Respiratory: Chest Non Tender, No Accessory Muscle Use, No Respiratory Distress, Decreased Breath Sounds Cardiovascular: No Edema, Irregularly Irregular, Tachycardia Gastrointestinal: Normal Bowel Sounds, Soft, Guarding, Tenderness (diffuse) Neurologic/Psychiatric: Alert, Oriented x3 Skin: Normal Color, Warm/Dry Results/Procedures Lab Laboratory Tests 06/27/23 03:48 Patient resulted labs reviewed. Imaging: Reviewed Imaging Report Assessment/Plan Assessment and Plan Assess & Plan/Chief Complaint Acute on Chronic Hypoxic Respiratory failure COPD Exacerbation Pneumothorax O2 is stable on 2L Continue steroids Leukocytosis- WBC increase to 17.2 today continue Zosyn (has tolerated in the past with cephalosporin allergy) Surgery consulted for management of pneumothorax- chest tube removed- management per Dr Stephania Encarnacion Repeat CXR this morning similar to yesterday Physical therapy consulted Encourage ambulating- catheter replaced today due to abdominal pain and distension in bladder Acute onset abdominal pain CT chest/abd/pelvis Influenza- negative COVID- positive Fentanyl for pain A fib with RVR Cardizem gtt- transition to oral cardizem Lovenox for stroke ppx Cardiology consulted, appreciate recs hypothyroidism TSH 0.3- T4 normal anxiety Continue home xanax prn Allergies Mucinex prn DVT ppx: Lovenox MARGIE FARR MD 06/27/23 1726: Subjective HPI/CC On Admission Time Seen by Provider: 08:30 Objective Exam General Appearance: Chronically ill, Moderate Distress Respiratory: No Respiratory Distress, Decreased Breath Sounds Cardiovascular: Irregularly Irregular, Tachycardia Gastrointestinal: Normal Bowel Sounds, Soft; No Distended, No Guarding; Tenderness (diffuse) Extremity: Normal Inspection, No Pedal Edema Neurologic/Psychiatric: Alert, Oriented x3 Skin: Normal Color, Warm/Dry Results/Procedures Imaging: Reviewed Imaging Films, Reviewed Imaging Report Assessment/Plan Assessment and Plan Assess & Plan/Chief Complaint Significant abdominal pain overnight and this morning. XR improved, no evidence of free air. CT chest/abdomen/pelvis without evidence of acute abnormalities other than known effusion. Tachycardic, in AFib with RVR. Given IV Metoprolol, starting IV Cardizem. COVID test positive, starting Paxlovid. Critical Care: Critically Ill Patient Diagnosis/Problems Diagnosis/Problems (1) COVID-19 Status: Acute (2) Abdominal pain Status: Acute Qualifiers: Qualified Codes: R10.84 - Generalized abdominal pain (3) Urinary retention Status: Acute (4) Acute and chronic respiratory failure with hypoxia Status: Acute (5) Pneumothorax on right Status: Acute (6) Pleural effusion Status: Acute (7) COPD exacerbation Status: Acute (8) Atrial fibrillation with RVR Status: Acute Supervisory-Addendum Brief Verification & Attestation Participated in pt care: history, MDM, physical Personally performed: exam, history, MDM, supervision of care Care discussed with: Medical Student Procedures: n/a A medical student performed and documented this service in my presence. I reviewed and verified all information documented by the medical student and made modifications to such information, when appropriate. I personally performed the physical exam and medical decision making. AZALIA LYNN Jun 27, 2023 11:23 MARGIE FARR MD Jun 27, 2023 17:26
[2023-06-27] MEDS: dilTIAZem ER 120 MG CAPSULE PO SCH (11:58)
[2023-06-27] MEDS ORDERED: RT-ALBUTEROL HFA 8.5 GM INHALER IH PRN (12:00)
--- NOTE | 2023-06-27 12:20 | Cardiology Progress Note ---
Cardiology Progess Note Progress Time Seen by Provider: 08:00 Overnight, patient went back into atrial fibrillation. Heart rates ranging from 110s to 140s. White blood cell count increased from 11.4-17.2. Patient complaining of severe abdominal pain today. Difficult to tolerating p.o.'s. Down for abdominal CT earlier this morning. Focused Exam Lactic Acid Level Gen: Moaning in bed today. Holding her abdomen. Neck: No bruits, no JVD Lungs: CTA B; no w-r-r CV: nl s1/s2; no g-r; irregularly, irregular, tachycardic. Abd: + BS, mildly distended. Diffusely tender/guarding Ext: 2+ radial and DP pulses; no c-c-e, wwp A/P-Cardiology Assessment/Plan Plan ## Status post spontaneous pneumothorax - Still have the chest tube. ## Acute exacerbation of COPD Improving. ## Paroxysmal atrial fibrillation with rapid ventricular response, converted to sinus rhythm, now back in A-fib with rapid ventricular response. - oral anticoagulation currently on hold, chest tube is in place. - will need to restart oral anticoagulation when deemed reasonable by the surgeon -Because of abdominal pain, will transition to IV. Transition to Dilt drip with 10 mg bolus -Keep K greater than 4, mag greater than 2. -Transition to Xopenex instead of DuoNebs which will help to minimize tachycardia as well. ## Hypertension, systolic 110s to 130s over 70s to 90s. -Continue to monitor ##History of anemia requiring blood transfusion, hematocrit 34 today. -Continue to monitor ## History of tobaccoism RADHA CHURCH MD Jun 27, 2023 12:20
--- NOTE | 2023-06-27 12:43 | Tele-ICU Progress Note ---
Subjective Date Seen by a Provider: Jun 27, 2023 Time Seen by a Provider: 12:43 Subjective/Events-last exam (Tele-ICU Physician , Progress Note ) Service provided via interactive audio and video telecommunications E-CARE system to a patient admitted to ICU bed in [facility]. Patient is seen today due to persistent need of ICU care Available chart/ vitals / labs / Images reviewed Video assessment done using teleICU camera, rest of exam as per RN Discussed with RN Events overnight : abd pain , received fentanyl Afebrile hemodynamically stable Respiratory - I/O =+ Drips: ns 35 - Off NOW Pressors- no Hospital course: (06/20) 78y/o F admitted with AFib/RVR & Lg R pneumothorax. > t Thora-Vent chest tube.. Patient on Eliquis. 06/22- 9 L o2 , converted to sinus , RIGHT lung opacification , mostl likely mucous plug - mucomist added 06/23- cxr same , 3 lNC , no output in chest tube , CT CHEST 06/25 - CHEST TUBE IN PLACE _ 20 cm SUCCTIONS , 20 ML output , CXR 06/27 - COVID + , abd pain , AFIB RVR_ cardizem gtt , chest tube removed A/P Spontaneous secondary PTX on RIGHT - s/p 06/20-Placement of right Thora-Vent chest tube by Dr Cat - on WS since 06/21 -> cxr 06/22 with large opacification on right side - change chest tube to sucction - no output - chest tube REMOVED 06/27 RIGHT lung opacification on cxr 06/22 - mostl likely mucous plug - mucomist added , - IMPROVING CT chest done - acapella encouraged ( patient is reluctunt to do chest PT due to " 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 calculous cholecystitis. do not recommend surgery" CKD - improved , will decrease IVF SOLOMON, -DX 2021 ( AHI 15 ) - during titration study went to CSA AHI 25 --> ASV EPAP min 4, MAx 20 , PS min ) , max 25 , rate auto - all SOLOMON /CSA resolved - hold while has PTX Lines : periph , (Central Line Necessity Reviewed) Sotomayor: removed 06/26 - PLACED BACK 06/27 with retention OG: Nutrition: po Analgesia: Anxiety/ delirium VTE Prophylaxis: STARS SPECIALIST eliquis - on hold , lovenocx on hold , SCD Stress Ulcer Prophylaxis: Plans in collaboration with bedside consultants and IM MDs. Discussed with RN to reach out if any questions or concerns A total of 20 minutes of critical care time was devoted to this patient today, required to treat and/or prevent further deterioration of critical care condition ( as above ) . I am remotely monitoring this patient from another state. I am unable to do the bedside exam, and history/physical and pertinent information is taken from other notes in the computer and bedside staff. . Sepsis Event Evaluation Height, Weight, BMI Height: 5'3.00" Weight: 110lbs. 0.0oz. 49.242602cs; 20.93 BMI Method:Stated Exam Exam Patient acknowledged, consented, and participated in this virtual visit which was conducted using real time audio/video Vital Signs Date Time Temp Pulse Resp B/P (MAP) Pulse Ox O2 Delivery O2 Flow Rate FiO2 06/27/23 12:00 98 101/66 (84) 91 High Flow N/C 2.00 06/27/23 11:00 98 101/70 (80) 94 High Flow N/C 2.00 06/27/23 10:35 124 110/78 06/27/23 10:34 113 110/78 06/27/23 10:00 125 20 112/67 (72) High Flow N/C 2.00 06/27/23 09:00 115 28 103/78 (85) 92 High Flow N/C 2.00 06/27/23 08:00 146 25 108/79 (91) 94 High Flow N/C 2.00 06/27/23 07:23 98 Nasal Cannula 2.00 06/27/23 07:00 121 06/27/23 07:00 176 21 136/86 (104) 100 High Flow N/C 2.00 06/27/23 06:00 141 18 101/87 (92) 96 High Flow N/C 2.00 06/27/23 05:00 122 122/72 (89) 92 High Flow N/C 2.00 06/27/23 04:19 36.6 06/27/23 04:08 36.6 06/27/23 04:00 104 133/80 (97) 98 High Flow N/C 2.00 06/27/23 03:00 131 117/84 (95) 100 High Flow N/C 2.00 06/27/23 02:00 114 139/79 (99) 97 High Flow N/C 2.00 06/27/23 01:00 126 121/85 (97) 96 High Flow N/C 2.00 06/27/23 01:00 129 06/27/23 00:00 112 134/92 (106) 97 High Flow N/C 2.00 06/26/23 23:39 37.2 06/26/23 23:00 81 132/70 (90) 95 High Flow N/C 2.00 06/26/23 22:43 98 Nasal Cannula 2.00 06/26/23 22:00 85 127/74 (91) 93 High Flow N/C 2.00 06/26/23 21:00 85 140/73 (95) 98 High Flow N/C 2.00 06/26/23 20:00 95 Nasal Cannula 2.00 06/26/23 20:00 99 122/66 (84) 94 High Flow N/C 2.00 06/26/23 19:47 36.7 High Flow N/C 2.00 06/26/23 19:00 91 06/26/23 19:00 93 118/68 (85) 95 High Flow N/C 2.00 06/26/23 18:00 90 119/75 (90) 95 High Flow N/C 2.00 06/26/23 17:00 89 129/63 (85) 95 High Flow N/C 2.00 06/26/23 16:35 96 Nasal Cannula 2.00 06/26/23 16:00 Nasal Cannula 2.00 06/26/23 16:00 68 122/64 (83) 95 High Flow N/C 2.00 06/26/23 15:43 36.5 06/26/23 14:37 100 Nasal Cannula 2.00 06/26/23 14:36 100 Nasal Cannula 2.00 06/26/23 13:00 83 I & O 06/27/23 07:00 Intake Total 500 ml Balance 500 ml Height & Weight Height: 5'3.00" Weight: 110lbs. 0.0oz. 49.104023mx; 20.93 BMI Method:Stated General Appearance: WD/WN HEENT: PERRL/EOMI Neck: Full Range of Motion Respiratory: Chest Non Tender, No Accessory Muscle Use, No Respiratory Distress, Decreased Breath Sounds Cardiovascular: No Edema, Tachycardia Capillary Refill: Less Than 3 Seconds Gastrointestinal: normal bowel sounds, soft, tenderness Extremity: Normal Capillary Refill Neurologic/Psychiatric: Alert, Oriented x3 Skin: Normal Color, Warm/Dry Lymphatic: No Adenopathy Results Lab Laboratory Tests 06/26/23 04:44 06/27/23 03:48 Assessment/Plan Assessment/Plan 1 ARLEEN GIL MD Jun 27, 2023 12:43
[2023-06-27] MEDS ORDERED: NIRMATRELVIR/RITONAVIR (PAXLOVID) TABLET PO SCH (12:45)
[2023-06-27] MEDS: guaiFENesin 600 MG TABLET PO SCH ×2 (13:01→20:25)
[2023-06-27] MEDS: LORATADINE 10 MG TABLET PO SCH (13:01)
[2023-06-27] MEDS: FUROSEMIDE 40 MG TABLET PO SCH (13:02)
[2023-06-27] MEDS: APIXABAN 5 MG TABLET PO SCH (13:02)
[2023-06-27] MEDS: HYDROcodone/ACETAMINOPHEN 5 MG/325 MG TABLET PO PRN ×2 (13:02→19:31)
[2023-06-27] MEDS: RT-ALBUTEROL HFA 8.5 GM INHALER IH SCH ×3 (14:54→21:28)
[2023-06-27] MEDS: APIXABAN 2.5 MG TABLET PO SCH (20:25)
[2023-06-28] MEDS: HYDROcodone/ACETAMINOPHEN 5 MG/325 MG TABLET PO PRN ×4 (01:57→20:16)
[2023-06-28] MEDS: RT-ALBUTEROL HFA 8.5 GM INHALER IH SCH ×6 (02:26→22:46)
[2023-06-28] MEDS: [UNRECOGNIZED DRUG - OTHER] IV SCH (04:03)
[2023-06-28 04:45] LABS: HEMATOCRIT 31 % (35-52); MEAN CORPUSCULAR HEMOGLOBIN 29 pg (25-34); MEAN CORPUSCULAR HGB CONC 32 g/dL (32-36); MEAN CORPUSCULAR VOLUME 91 fL (80-99); MEAN PLATELET VOLUME 9.4 fL (9.0-12.2); PLATELET COUNT 325 10^3/uL (130-400); WHITE BLOOD COUNT 13.6 10^3/uL (4.3-11.0)
[2023-06-28 05:13] LABS: CALCIUM 7.9 MG/DL (8.5-10.1); CREATININE SERUM 0.8 MG/DL (0.60-1.30); MAGNESIUM 1.5 MG/DL (1.6-2.4)
[2023-06-28] MEDS: POTASSIUM CL 10MEQ/50ML IVPB 50 ML IV SCH (05:44)
[2023-06-28] MEDS: POTASSIUM CHLORIDE 20 MEQ TABLET PO SCH (05:44)
[2023-06-28] MEDS: MAGNESIUM 1 GM/100 ML IVPB 100 ML IV SCH ×5 (05:44→08:58)
[2023-06-28] MEDS: THYROID (ARMOUR) 60 MG TABLET PO SCH (06:16)
[2023-06-28] MEDS ORDERED: THYROID (ARMOUR) 60 MG TABLET PO SCH (06:30)
[2023-06-28] MEDS: ALPRAZolam 0.25 MG TABLET PO PRN (07:14)
[2023-06-28] MEDS: PIPERACILLIN/Tazobactam 4.5 GM in NS (IVPB) 100 ML 100 ML IV SCH ×3 (07:14→23:39)
[2023-06-28] MEDS ORDERED: DEXTROSE 50% 50 ML (IMS) SYR ONE (07:41)
[2023-06-28] MEDS ORDERED: D5 NS 1,000 ML IV SOLN 1,000 ML IV SCH (08:45)
--- NOTE | 2023-06-28 08:49 | Tele-ICU Progress Note ---
Subjective Date Seen by a Provider: Jun 28, 2023 Subjective/Events-last exam This virtual visit was conducted using real time audio/video. Thank you for asking us to see this patient for respiratory insufficiency due to COPD. Admitted w Afib/RVR, spontaneous R PTX. Also Covid +. Recent events: Chest tube removed 06/27. PMH: COPD PE: VSS. HR 100-110 afib. O2 sat 94% on 5 LPM. HEENT: No obvious masses, adenopathy or JVD. Chest: clear to auscultation. Diminished CV: Irreg. S1 S2 No murmur or added sounds. Abd: Non-tender. Bowel sounds Y. : Unremarkable. Sotomayor Y. NIGHT ASSISTANT/psychiatric: Grossly intact. No obvious focal findings. Extremities: No edema. Capillary refill < 3 seconds. Skin: unremarkable. Results: Elevated WCC 13.6, decreasing. Decreased Hb 10.0, Na 131, Mag 1.5. CXR: hyperinflated. Available chart/ vitals / labs / images reviewed. Video assessment done using teleICU camera, rest of exam as per RN. A/P: Respiratory insufficiency: Continue present management with O2, albut., Paxlovid. Monitor for increasing oxygenation needs and/or need for intubation. Critical Care: critically ill patient. Cont. abx,cardiz., PPI, Metop., lasix, Apixaban. Replace Mag. Discussed with GURPREET Rodriguez. Asked RN to reach out to eICU if any questions or concerns later. Time spent with patient/coordination of care with other health professionals (mins): 20 Sepsis Event Evaluation Height, Weight, BMI Height: 5'3.00" Weight: 110lbs. 0.0oz. 49.905495kt; 17.60 BMI Method:Stated Exam Exam Patient acknowledged, consented, and participated in this virtual visit which was conducted using real time audio/video Vital Signs Date Time Temp Pulse Resp B/P (MAP) Pulse Ox O2 Delivery O2 Flow Rate FiO2 06/28/23 08:00 101 16 95/63 (75) 94 High Flow N/C 5.00 06/28/23 07:37 93 Nasal Cannula 5.00 06/28/23 07:20 36.5 06/28/23 07:00 108 06/28/23 07:00 94 15 104/73 (84) 93 High Flow N/C 5.00 06/28/23 06:56 91 Nasal Cannula 4.00 06/28/23 06:00 89 19 97/69 (78) 93 High Flow N/C 5.00 06/28/23 05:00 101 15 83/51 (62) 95 High Flow N/C 5.00 06/28/23 04:07 36.9 High Flow N/C 5.00 06/28/23 04:07 92 Nasal Cannula 5.00 06/28/23 04:03 93 94/62 06/28/23 04:00 99 16 95/69 (78) 94 High Flow N/C 5.00 06/28/23 03:00 93 16 94/62 (73) 92 High Flow N/C 5.00 06/28/23 02:27 94 Nasal Cannula 4.00 06/28/23 02:00 101 22 103/66 (78) 87 High Flow N/C 5.00 06/28/23 01:51 36.7 High Flow N/C 5.00 06/28/23 01:00 82 27 100/69 (79) 93 High Flow N/C 5.00 06/28/23 01:00 75 06/28/23 00:00 87 20 90/71 (77) 94 High Flow N/C 5.00 06/27/23 23:47 93 Nasal Cannula 5.00 06/27/23 23:34 36.4 High Flow N/C 5.00 06/27/23 23:00 89 17 96/63 (74) 93 High Flow N/C 4.00 06/27/23 22:00 85 12 101/59 (73) 92 High Flow N/C 4.00 06/27/23 21:28 93 Nasal Cannula 4.00 06/27/23 21:00 79 89/62 (71) 93 High Flow N/C 4.00 06/27/23 20:00 77 46 88/59 (69) 93 High Flow N/C 4.00 06/27/23 20:00 91 Nasal Cannula 4.00 06/27/23 19:32 36.6 High Flow N/C 4.00 06/27/23 19:00 80 06/27/23 19:00 84 18 109/68 (82) 90 High Flow N/C 2.00 06/27/23 18:21 91 Nasal Cannula 4.00 06/27/23 18:00 95 17 110/68 (83) 94 High Flow N/C 2.00 06/27/23 17:00 90 91/57 (71) 94 High Flow N/C 2.00 06/27/23 16:00 95 Nasal Cannula 4.00 06/27/23 16:00 97 20 100/61 (75) 93 High Flow N/C 2.00 06/27/23 15:00 112 16 85/64 (73) 93 High Flow N/C 2.00 06/27/23 14:55 95 Nasal Cannula 4.00 06/27/23 14:00 98 109/70 (86) 91 High Flow N/C 2.00 06/27/23 13:00 85 97/59 (80) 93 High Flow N/C 2.00 06/27/23 13:00 109 06/27/23 12:00 98 101/66 (84) 91 High Flow N/C 2.00 06/27/23 12:00 95 Nasal Cannula 4.00 06/27/23 11:00 98 101/70 (80) 94 High Flow N/C 2.00 06/27/23 10:35 124 110/78 06/27/23 10:34 113 110/78 06/27/23 10:00 125 20 112/67 (72) High Flow N/C 2.00 06/27/23 09:00 115 28 103/78 (85) 92 High Flow N/C 2.00 I & O 06/28/23 07:00 Intake Total 1470 ml Output Total 4775 ml Balance -3305 ml Height & Weight Height: 5'3.00" Weight: 110lbs. 0.0oz. 49.582703hg; 17.60 BMI Method:Stated General Appearance: Chronically ill, Moderate Distress HEENT: PERRL/EOMI Neck: Full Range of Motion Respiratory: No Respiratory Distress, Decreased Breath Sounds Cardiovascular: Irregularly Irregular, Tachycardia Capillary Refill: Less Than 3 Seconds Gastrointestinal: normal bowel sounds, soft, tenderness Extremity: Normal Inspection, No Pedal Edema Neurologic/Psychiatric: Alert, Oriented x3 Skin: Normal Color, Warm/Dry Lymphatic: No Adenopathy Results Lab Laboratory Tests 06/27/23 03:48 06/28/23 04:26 Assessment/Plan Assessment/Plan Se free text. Critical Care: Critically Ill Patient CHRISTEL OSBORN MD Jun 28, 2023 08:49
[2023-06-28] MEDS: NICOTINE PATCH REMOVAL TP SCH (08:53)
[2023-06-28] MEDS ORDERED: D5 NS 1,000 ML IV SOLN 1,000 ML IV ONE (08:56)
[2023-06-28] MEDS: NICOTINE 7 MG PATCH TD SCH (08:57)
[2023-06-28] MEDS: guaiFENesin 600 MG TABLET PO SCH ×2 (08:57→20:15)
[2023-06-28] MEDS: APIXABAN 2.5 MG TABLET PO SCH ×2 (08:57→20:15)
[2023-06-28] MEDS: LORATADINE 10 MG TABLET PO SCH (08:57)
[2023-06-28] MEDS ORDERED: MAGNESIUM 1 GM/100 ML IVPB 100 ML IV SCH (09:30)
[2023-06-28] MEDS: FUROSEMIDE 40 MG TABLET PO SCH (10:18)
--- NOTE | 2023-06-28 11:02 | Cardiology Progress Note ---
Subjective Date Seen by Provider: Jun 28, 2023 Time Seen by Provider: 09:30 Subjective/Events-last exam No acute issues overnight. Abdominal discomfort resolved. COVID-positive. Blood pressures in the 90s to 100s today. Intermittently in atrial fibrillation. Eliquis 2.5 mg restarted. Objective-Cardiology Exam Last Set of Vital Signs Vital Signs 06/28/23 06/28/23 07:20 10:00 Temp 36.5 Pulse 85 Resp 24 B/P (MAP) 97/60 (73) Pulse Ox 93 O2 Delivery High Flow N/C O2 Flow Rate 5.00 I&O Intake and Output 06/28/23 00:00 Intake Total 1320 ml Output Total 4175 ml Balance -2855 ml Intake Oral 1120 ml IV Total 200 ml Output Urine Total 4175 ml # Voids 3 General: Alert, Oriented X3, Cooperative HEENT: Atraumatic, PERRLA Neck: Supple, No JVD, No Thyromegaly Lungs: Clear to Auscultation, Normal Air Movement Heart: Regular Rate, Normal S1, Normal S2, No Murmurs Abdomen: Normal Bowel Sounds, Soft, No Tenderness, No Hepatosplenomegaly, No Masses Extremities: No Clubbing, No Cyanosis, No Edema, Normal Pulses, No Tenderness/Swelling Skin: No Rashes, No Breakdown, No Significant Lesion Neuro: Normal Gait, Normal Speech, Strength at 5/5 X4 Ext, Normal Tone, Sensation Intact Psych/Mental Status: Mental Status NL, Mood NL Other physical findings Gen: Moaning in bed today. Holding her abdomen. Neck: No bruits, no JVD Lungs: CTA B; no w-r-r CV: nl s1/s2; no g-r; irregularly, irregular, not tachycardic Abd: + BS, mildly distended. less abdominal tenderness today. Ext: 2+ radial and DP pulses; no c-c-e, wwp Results Lab Laboratory Tests 06/28/23 04:26 A/P-Cardiology Admission Diagnosis Shortness of breath Right pneumothorax Acute exacerbation of COPD Paroxysmal atrial fibrillation Assessment/Plan ## Status post spontaneous pneumothorax - Still with chest tube. - eliquis 2.5mg bid restarted ## COVID: - on paxlovid. . ## Paroxysmal atrial fibrillation with rapid ventricular response, converted to sinus rhythm, now back in A-fib with rapid ventricular response. - oral anticoagulation restarted (eliquis 2.5 bid), chest tube is in place. -cont diltiazem gtt. -Keep K greater than 4, mag greater than 2. - cponsider transition to Xopenex instead of DuoNebs which will help to minimize tachycardia as well. ## Hypertension, systolic 110s to 130s over 70s to 90s. -Continue to monitor ##History of anemia requiring blood transfusion, hematocrit 34 today. -Continue to monitor ## History of tobaccoism RADHA CHURCH MD Jun 28, 2023 11:02 am
--- NOTE | 2023-06-28 11:52 | Physical Therapy Daily Note ---
PT Daily Note-Current Subjective RN reports pt is stable enough to continue PT treatments. Pt found lying in bed upon entry. Agreed to PT. Reports that she just got laid back down in bed and is to cold to get up again. Does agreed to therapeutic exercises in bed. Pain Section J - Health Conditions 1. Rarely or not at all 2. Occasionally 3. Frequently 4. Almost constantly 8. Unable to answer Pain Effect on Sleep: 3 Pain Interference with Therapy: 3 Pain Interference w/Day-to-Day: 3 Mental Status Patient Orientation: Person Attachments: Oxygen, Sotomayor Catheter, IV Transfers SCALE: Activities may be completed with or without assistive devices. 9-Yrjawvwgax-dukhjpl completes the activity by him/herself with no assistance from a helper. 5-Set-up or Clean-up Assistance-helper sets up or cleans up; patient completes activity. Ferguson assists only prior to or following the activity. 4-Supervision or Touching Assistance-helper provides verbal cues and/or touching/steadying and/or contact guard assistance as patient completes activity. Assistance may be provided throughout the activity or intermittently. 3-Partial/Moderate Assistance-helper does LESS THAN HALF the effort. Ferguson lifts, holds or supports trunk or limbs, but provides less than half the effort. 2-Substantial/Maximal Assistance-helper does MORE THAN HALF the effort. Ferguson lifts or holds trunk or limbs and provides more than half the effort. 7-Jhevocxou-lxmwzu does ALL the effort. Patient does none of the effort to complete the activity. Or, the assistance of 2 or more helpers is required for the patient to complete the activity. If activity was not attempted, code reason: 7-Patient Refused. 9-Not Applicable-not attempted and the patient did not perform the activity before the current illness, exacerbation or injury. 10-Not Attempted due to Environmental Limitations-(lack of equipment, weather restraints, etc.). 88-Not Attempted due to Medical Conditions or Safety Concerns. Weight Bearing Right Lower Extremity: Right Full Weight Bearing Left Lower Extremity: Left Full Weight Bearing Treatments Supine Therpauetic Exercises (B) x 10 ea: - SLRs - Glute sets - Ankle pumps - Hip abd - Hip add Assessment Current Status: Fair Progress Pt displays decent muscle strength and endurance /c all therapeutic exercises. She occasionally dozes off during treatment and required verbal cues to finish sets. O2 saturations fluctuate throughout treatment between 78-92%. O2 sats improve /c verbal cues for deep breathing. Pt left in bed post-treatment. Call light not found. RN notified about missing call light and pt's performance post- treatment. Continue to progress pt per POC. PT Prison Goals Prison Goals PT Glove Brusher Goals Time Frame: Jul 12, 2023 Roll Left & Right (QC): 6 Sit to Lying (QC): 6 Lying-Sitting on Side/Bed(QC): 6 Sit to Stand (QC): 4 Chair/Ukj-gu-Kvndg Xfer(QC): 4 Toilet Transfer (QC): 4 Walk 10 feet (QC): 4 Walk 50ft with 2 Turns (QC): 4 PT Plan Treatment/Plan Treatment Plan: Continue Plan of Care Treatment Plan: Bed Mobility, Education, Functional Activity [place], Functional Strength, Gait, Safety, Therapeutic Exercise, Transfers Treatment Duration: Jul 12, 2023 Frequency: 6 times per week Estimated Hrs Per Day: .25 hour per day Patient and/or Family Agrees t: Yes Time Time In: 1128 Time Out: 1144 DATE: Jun 28, 2023 Total Billed Treatment Time: 16 Total Billed Treatment 1 visit EX x 1 DORIE OROPEZA MEDICAL EDUCATION SPECIALIST Jun 28, 2023 11:52
[2023-06-28] MEDS: NIRMATRELVIR/RITONAVIR (PAXLOVID) TABLET PO SCH ×2 (12:24→20:13)
[2023-06-28] MEDS: ONDANSETRON INJECTION 4 MG/2 ML (SDV) IV PRN (13:57)
--- NOTE | 2023-06-28 19:24 | Progress Note - Hospitalist ---
Subjective HPI/CC On Admission Date Seen by Provider: Jun 28, 2023 Time Seen by Provider: 10:40 Pt is a 78yoCf with a PMH COPD, a fib who presented to the ER due to shortness of breath. She states she has not been doing well for the last few months with her COPD and will be short of breath off and on. This morning she woke up and it was much worse prompting her to come to the ER today. When she got here her heart was racing but she was noted to be in sinus tach. Shortly after that her heart rate shot up to the 140s and EKG showed a fib with RVR. She was mildly hypotensive as well. CXR was obtained which showed a right sided pneumothorax. She denies any falls or injuries recently. She denies any chest pain, She denies any nausea or vomiting, fever, leg swelling, or fever. Subjective/Events-last exam She is feeling a bit better. She is still having some abdominal pain. She is short of breath. She has a cough. Objective Exam Vital Signs Vital Signs Date Time Temp Pulse Resp B/P (MAP) Pulse Ox O2 Delivery O2 Flow Rate FiO2 06/28/23 19:06 96 Nasal Cannula 3.00 06/28/23 18:00 81 111/54 (73) 06/28/23 16:00 37.7 06/28/23 16:00 19 Capillary Refill : Less Than 3 Seconds General Appearance: No Apparent Distress, Chronically ill Respiratory: No Respiratory Distress, Decreased Breath Sounds Cardiovascular: No Murmur, Irregularly Irregular Gastrointestinal: Normal Bowel Sounds, Soft, Tenderness Extremity: Normal Inspection, No Pedal Edema Neurologic/Psychiatric: Alert, Normal Mood/Affect Results/Procedures Lab Laboratory Tests 06/28/23 04:26 Patient resulted labs reviewed. Imaging: Reviewed Imaging Films, Reviewed Imaging Report Assessment/Plan Assessment and Plan Assess & Plan/Chief Complaint Acute on chronic respiratory failure with hypoxia Pneumothorax Pleural effusion COVID-19 PNA COPD Supplemental oxygen as needed Surgery following, Dr. Cat, managing Thorav[facility] TeleICU following Sputum culture with Pseudomonas Bettesyn Cynthiad A fib with RVR Cardizem gtt Eliquis Cardiology following Hypothyroidism Anxiety Allergies Continue home meds as able Critical Care Critically Ill Patient Diagnosis/Problems Diagnosis/Problems (1) COVID-19 Status: Acute (2) Abdominal pain Status: Acute Qualifiers: Abdominal location: generalized Qualified Codes: R10.84 - Generalized abdominal pain (3) Urinary retention Status: Acute (4) Acute and chronic respiratory failure with hypoxia Status: Acute (5) Pneumothorax on right Status: Acute (6) Pleural effusion Status: Acute (7) COPD exacerbation Status: Acute (8) Atrial fibrillation with RVR Status: Acute (9) Pneumonia Status: Acute MARGIE FARR MD Jun 28, 2023 19:24
[2023-06-29] MEDS: HYDROcodone/ACETAMINOPHEN 5 MG/325 MG TABLET PO PRN ×2 (01:02→06:05)
[2023-06-29] MEDS: [UNRECOGNIZED DRUG - OTHER] IV SCH ×2 (02:44→22:00)
[2023-06-29] MEDS: RT-ALBUTEROL HFA 8.5 GM INHALER IH SCH ×6 (02:54→22:04)
[2023-06-29 03:58] LABS: HEMATOCRIT 28 % (35-52); HEMOGLOBIN 8.9 g/dL (11.5-16.0); MEAN CORPUSCULAR HEMOGLOBIN 30 pg (25-34); MEAN CORPUSCULAR HGB CONC 32 g/dL (32-36); MEAN CORPUSCULAR VOLUME 92 fL (80-99); MEAN PLATELET VOLUME 9.1 fL (9.0-12.2); PLATELET COUNT 241 10^3/uL (130-400); WHITE BLOOD COUNT 9.4 10^3/uL (4.3-11.0)
[2023-06-29 04:14] LABS: CALCIUM 7.6 MG/DL (8.5-10.1); CREATININE SERUM 0.8 MG/DL (0.60-1.30); MAGNESIUM 2.1 MG/DL (1.6-2.4); POTASSIUM 3.2 MMOL/L (3.6-5.0)
[2023-06-29] MEDS: MAGNESIUM 1 GM/100 ML IVPB 100 ML IV SCH (05:59)
[2023-06-29] MEDS: POTASSIUM CHLORIDE 20 MEQ TABLET PO SCH ×3 (05:59→12:49)
[2023-06-29] MEDS: POTASSIUM CL 10MEQ/50ML IVPB 50 ML IV SCH ×4 (05:59→14:44)
[2023-06-29] MEDS: THYROID (ARMOUR) 60 MG TABLET PO SCH (06:05)
[2023-06-29] MEDS: LORATADINE 10 MG TABLET PO SCH (08:29)
[2023-06-29] MEDS: PIPERACILLIN/Tazobactam 4.5 GM in NS (IVPB) 100 ML 100 ML IV SCH ×2 (08:29→16:40)
[2023-06-29] MEDS: FUROSEMIDE 40 MG TABLET PO SCH (08:30)
[2023-06-29] MEDS: NIRMATRELVIR/RITONAVIR (PAXLOVID) TABLET PO SCH ×2 (08:30→21:04)
[2023-06-29] MEDS: APIXABAN 2.5 MG TABLET PO SCH ×2 (08:30→21:03)
[2023-06-29] MEDS: guaiFENesin 600 MG TABLET PO SCH ×2 (08:30→21:03)
[2023-06-29] MEDS: NICOTINE PATCH REMOVAL TP SCH (08:43)
[2023-06-29] MEDS: NICOTINE 7 MG PATCH TD SCH (08:44)
[2023-06-29] MEDS: ALPRAZolam 0.25 MG TABLET PO PRN (10:10)
--- NOTE | 2023-06-29 10:32 | Tele-ICU Progress Note ---
Subjective Date Seen by a Provider: Jun 29, 2023 Time Seen by a Provider: 10:27 Subjective/Events-last exam (Tele-ICU Physician , Progress Note ) Service provided via interactive audio and video telecommunications E-CARE system to a patient admitted to ICU bed in [facility]. Patient is seen today due to persistent need of ICU care Available chart/ vitals / labs / Images reviewed Video assessment done using teleICU camera, rest of exam as per RN Discussed with RN Events overnight : abd pain , received fentanyl Afebrile hemodynamically stable Respiratory - I/O =+ Drips: ns 35 - Off NOW Pressors- no Hospital course: (06/20) 78y/o F admitted with AFib/RVR & Lg R pneumothorax. > t Thora-Vent chest tube.. Patient on Eliquis. 06/22- 9 L o2 , converted to sinus , RIGHT lung opacification , mostl likely mucous plug - mucomist added 06/23- cxr same , 3 lNC , no output in chest tube , CT CHEST 06/25 - CHEST TUBE IN PLACE _ 20 cm SUCCTIONS , 20 ML output , CXR 06/27 - COVID + , abd pain , AFIB RVR_ cardizem gtt , chest tube removed 06/28- hypotensive , IVF fluid 1 L 06/29- back to afib RVR intermittent A/P COVID + ( was neg on admission , + 06/26 ) - br dilators - -monitor for needs for steroids Possible aspiration - on Zosyn , speach eval UTI with PSA - on zosyn AECOPD - with concominat PTX, viral panel negative - on 4 L o2 - improving , ( 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 calculous cholecystitis. 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 Discussed with RN to reach out if any questions or concerns A total of 20 minutes of critical care time was devoted to this patient today, required to treat and/or prevent further deterioration of critical care condition ( as above ) . I am remotely monitoring this patient from another state. I am unable to do the bedside exam, and history/physical and pertinent information is taken from other notes in the computer and bedside staff. . Sepsis Event Evaluation Height, Weight, BMI Height: 5'3.00" Weight: 110lbs. 0.0oz. [id number]; 19.91 BMI Method:Stated Exam Exam Patient acknowledged, consented, and participated in this virtual visit which was conducted using real time audio/video Vital Signs Date Time Temp Pulse Resp B/P (MAP) Pulse Ox O2 Delivery O2 Flow Rate FiO2 06/29/23 10:00 133 29 100/70 (83) 91 High Flow N/C 5.00 06/29/23 09:00 80 28 93/59 (68) 93 High Flow N/C 5.00 06/29/23 08:09 36.4 06/29/23 08:00 81 16 127/67 (97) 94 High Flow N/C 5.00 06/29/23 07:00 75 06/29/23 07:00 74 18 118/60 (79) 91 High Flow N/C 5.00 06/29/23 06:59 93 Nasal Cannula 5.00 06/29/23 06:00 73 113/54 (73) 92 High Flow N/C 4.00 06/29/23 05:00 75 116/57 (76) 93 High Flow N/C 4.00 06/29/23 04:07 92 Nasal Cannula 4.00 06/29/23 04:00 106 121/64 (83) 93 High Flow N/C 4.00 06/29/23 03:36 36.6 High Flow N/C 4.00 06/29/23 03:00 113 113/67 (82) 91 High Flow N/C 3.00 06/29/23 02:54 Nasal Cannula 4.00 06/29/23 02:00 75 106/56 (73) 95 High Flow N/C 3.00 06/29/23 01:00 72 110/62 (78) 92 High Flow N/C 3.00 06/29/23 00:39 76 06/29/23 00:00 75 96/54 (68) 92 High Flow N/C 3.00 06/28/23 23:57 92 Nasal Cannula 2.50 06/28/23 23:38 36.6 High Flow N/C 3.00 06/28/23 23:00 115 102/69 (80) 92 High Flow N/C 3.00 06/28/23 22:46 94 Nasal Cannula 3.00 06/28/23 22:00 76 108/62 (77) 99 High Flow N/C 3.00 06/28/23 21:00 89 56/72 (67) 99 High Flow N/C 3.00 06/28/23 20:00 84 100/58 (72) 100 High Flow N/C 3.00 06/28/23 19:53 96 Nasal Cannula 3.00 06/28/23 19:37 36.7 High Flow N/C 3.00 06/28/23 19:06 96 Nasal Cannula 3.00 06/28/23 19:00 84 111/64 (80) 98 High Flow N/C 3.00 06/28/23 19:00 84 06/28/23 18:00 81 111/54 (73) 95 High Flow N/C 3.00 06/28/23 17:23 99 High Flow N/C 3.00 06/28/23 17:00 82 105/64 (78) 100 High Flow N/C 5.00 06/28/23 16:00 37.7 06/28/23 16:00 89 19 105/57 (73) 90 High Flow N/C 5.00 06/28/23 16:00 95 Nasal Cannula 5.00 06/28/23 15:20 96 Nasal Cannula 4.00 06/28/23 15:00 86 9 108/60 (76) 100 High Flow N/C 5.00 06/28/23 14:00 92 33 119/94 (102) 92 High Flow N/C 5.00 06/28/23 13:00 102 18 106/73 (76) High Flow N/C 5.00 06/28/23 12:43 77 06/28/23 12:00 73 20 94/57 (66) 100 High Flow N/C 5.00 06/28/23 12:00 93 Nasal Cannula 5.00 06/28/23 11:41 36.7 06/28/23 11:05 91 Nasal Cannula 4.00 06/28/23 11:00 89 23 100/61 (74) 94 High Flow N/C 5.00 I & O 06/29/23 07:00 Intake Total 2350 ml Output Total 1575 ml Balance 775 ml Height & Weight Height: 5'3.00" Weight: 110lbs. 0.0oz. [id number]; 19.91 BMI Method:Stated General Appearance: No Apparent Distress, Chronically ill HEENT: PERRL/EOMI Neck: Full Range of Motion Respiratory: No Respiratory Distress, Decreased Breath Sounds Cardiovascular: No Murmur, Irregularly Irregular Capillary Refill: Less Than 3 Seconds Gastrointestinal: normal bowel sounds, soft, tenderness Extremity: Normal Inspection, No Pedal Edema Neurologic/Psychiatric: Alert, Normal Mood/Affect Skin: Normal Color, Warm/Dry Lymphatic: No Adenopathy Results Lab Laboratory Tests 06/28/23 04:26 06/29/23 03:37 Assessment/Plan Assessment/Plan 1 ARLEEN GIL MD Jun 29, 2023 10:32
[2023-06-29] MEDS ORDERED: DEXTROSE 50% 50 ML (IMS) SYR IV ONE ×2 (11:15→20:45)
[2023-06-29] MEDS: FUROSEMIDE INJECTION 40 MG/4 ML VIAL IVP SCH (11:52)
[2023-06-29 11:55] VITALS: BP 111/82
[2023-06-29 11:56] LABS: ABG BASE EXCESS 1.8 MMOL/L (-2.5-2.5); ABG OXYGEN SATURATION 84 % (94-100); ABG PCO2 70 MMHG (35-45); ABG PO2 53 MMHG (79-93); ABG TCO2 30.8 MMOL/L (21.0-31.0)
[2023-06-29 11:58] LABS: ABG PH 7.23 (7.37-7.43); ALLENS TEST YES-POS; INSPIRED O2 5L; PATIENT TEMP 37.1; VENTILATOR NO
--- NOTE | 2023-06-29 12:07 | Cardiology Progress Note ---
Subjective Date Seen by Provider: Jun 29, 2023 Time Seen by Provider: 11:15 Subjective/Events-last exam No acute events overnight. Does not appear less lucid today. Breathing is shallow. Objective-Cardiology Exam Last Set of Vital Signs Vital Signs 06/29/23 06/29/23 08:09 11:00 Temp 36.4 Pulse 77 Resp 20 B/P (MAP) 106/73 (85) Pulse Ox 92 O2 Delivery High Flow N/C O2 Flow Rate 5.00 I&O Intake and Output 06/29/23 00:00 Intake Total 2600 ml Output Total 1625 ml Balance 975 ml Intake Oral 650 ml IV Total 1950 ml Output Urine Total 1625 ml General: Alert, Oriented X3, Cooperative HEENT: Atraumatic, PERRLA Neck: Supple, No JVD, No Thyromegaly Lungs: Clear to Auscultation, Normal Air Movement Heart: Regular Rate, Normal S1, Normal S2, No Murmurs Abdomen: Normal Bowel Sounds, Soft, No Tenderness, No Hepatosplenomegaly, No Masses Extremities: No Clubbing, No Cyanosis, No Edema, Normal Pulses, No Te nderness/Swelling Skin: No Rashes, No Breakdown, No Significant Lesion Neuro: Normal Gait, Normal Speech, Strength at 5/5 X4 Ext, Normal Tone, Sensation Intact Psych/Mental Status: Mental Status NL, Mood NL Other physical findings General: Alert, Oriented X3, Cooperative but less lucid HEENT: Atraumatic, PERRLA Neck: Supple, No JVD, No Thyromegaly Lungs: Coarse breath sounds, decreased air movement, diffusely rhonchorous. No wheezing is appreciated. Faint basilar rales Heart: Normal S1-S2. No murmurs gallops or rubs Abdomen: Normal Bowel Sounds, Soft, No Tenderness, No Hepatosplenomegaly, No Masses Extremities: No Clubbing, No Cyanosis, No Edema, Normal Pulses, No Tenderness/Swelling Results Lab Laboratory Tests 06/29/23 03:37 A/P-Cardiology Admission Diagnosis Shortness of breath Right pneumothorax Acute exacerbation of COPD Paroxysmal atrial fibrillation Assessment/Plan ## Status post spontaneous pneumothorax - Still with chest tube. - eliquis 2.5mg bid restarted ##Respiratory distress: Chest CTA performed yesterday. Demonstrated resolution of right-sided pneumothorax. Right chest tube in place. Bilateral basilar bilateral effusions, right greater than left noted. -Recommend ABG ; Discontinue p.o. Lasix-Start Lasix 40 mg IV daily, first dose now -Continue treatment as you are doing. ## COVID: - on paxlovid. . ## Paroxysmal atrial fibrillation with rapid ventricular response, converted to sinus rhythm, now back in A-fib with controlled ventricular response. - oral anticoagulation restarted (eliquis 2.5 bid), chest tube is in place. -cont diltiazem gtt. -Keep K greater than 4, mag greater than 2. ## Hypertension, systolic 90s to the 120s over 60s to 70s -Continue to monitor ##History of anemia requiring blood transfusion, hematocrit 28 today. -Continue to monitor ## History of tobaccoism RADHA CHURCH MD Jun 29, 2023 12:07
[2023-06-29] MEDS ORDERED: DexMEDEtomidine 1,000mcg/250ml 250 ML IV SCH (12:45)
--- NOTE | 2023-06-29 13:33 | Diagnostic Imaging Report ---
INDICATION: Hypoxia. COMPARISON: 06/27/2023. TECHNIQUE: Single radiograph of the chest dated 06/29/2023. FINDINGS: The cardiac silhouette is enlarged. Interval removal of the previously noted right-sided chest tube. Azygos lobe fissure is incidentally noted on the right. Moderate sized right basilar pleural-parenchymal opacity, minimally worsened since the prior examination. The left lung appears stable. Linear densities are seen overlying the left lateral chest though parenchymal markings are seen extending distal to these locations. Trace left pleural effusion. Osseous structures appear stable. No right-sided pneumothorax. IMPRESSION: Interval removal of the previously noted right-sided chest tube without significant pneumothorax. Persistent moderate sized right basilar pleural-parenchymal opacity, related to a combination of pleural fluid with adjacent atelectasis and/or infiltrate. This has minimally worsened since the prior examination. Trace left pleural effusion. Cardiomegaly. Linear densities overlying the left lateral chest are felt to relate to skin folds. Dictated by: Dictated on workstation # [id number]
[2023-06-29] MEDS ORDERED: ALBUMIN 25% 25 GM/100 ML 100 ML IV ONE (15:00)
[2023-06-29] MEDS ORDERED: SODIUM BICARB 8.4% 50 MEQ/50 ML (ABBOTT) SYR IV ONE (15:00)
[2023-06-29 15:15] VITALS: BP 72/42
[2023-06-29 17:53] LABS: ABG BASE EXCESS 6.7 MMOL/L (-2.5-2.5); ABG OXYGEN SATURATION 97 % (94-100); ABG PCO2 62 MMHG (35-45); ABG PO2 80 MMHG (79-93); ABG TCO2 34.3 MMOL/L (21.0-31.0)
[2023-06-29 18:00] LABS: ABG PH 7.34 (7.37-7.43); ALLENS TEST YES-POS; INSPIRED O2 40; PATIENT TEMP 36.7; VENTILATOR NO
--- NOTE | 2023-06-29 18:43 | Progress Note - Hospitalist ---
Subjective HPI/CC On Admission Date Seen by Provider: Jun 29, 2023 Time Seen by Provider: 11:30 Pt is a 78yoCf with a PMH COPD, a fib who presented to the ER due to shortness of breath. She states she has not been doing well for the last few months with her COPD and will be short of breath off and on. This morning she woke up and it was much worse prompting her to come to the ER today. When she got here her heart was racing but she was noted to be in sinus tach. Shortly after that her heart rate shot up to the 140s and EKG showed a fib with RVR. She was mildly hypotensive as well. CXR was obtained which showed a right sided pneumothorax. She denies any falls or injuries recently. She denies any chest pain, She denies any nausea or vomiting, fever, leg swelling, or fever. Subjective/Events-last exam She is sleepy. She falls asleep while we are talking. She does not voice any specific complaints. Objective Exam Vital Signs Vital Signs Date Time Temp Pulse Resp B/P (MAP) Pulse Ox O2 Delivery O2 Flow Rate FiO2 06/29/23 18:00 71 20 106/55 (81) 98 High Flow N/C 5.00 06/29/23 16:30 36.5 06/29/23 16:00 40 Capillary Refill : Less Than 3 Seconds General Appearance: Chronically ill, Mild Distress Respiratory: No Respiratory Distress, Decreased Breath Sounds Cardiovascular: No Murmur, Irregularly Irregular, Tachycardia Gastrointestinal: Normal Bowel Sounds, Soft Extremity: Normal Inspection, No Pedal Edema Neurologic/Psychiatric: Motor Weakness, Other (lethargic) Results/Procedures Lab Laboratory Tests 06/29/23 03:37 Patient resulted labs reviewed. Imaging: Reviewed Imaging Films, Reviewed Imaging Report Assessment/Plan Assessment and Plan Assess & Plan/Chief Complaint Acute on chronic respiratory failure with hypoxia and hypercapnia Pneumothorax, resolved Pleural effusion COVID-19 PNA COPD Chest xray with persistent effusion, no pneumothorax Surgery following, Dr. Cat, chest tube removed TeleICU following Sputum culture with Pseudomonas Zosyn Paxlovid ABG with acute hypercapnia Started on BiPAP A fib with RVR Cardizem gtt Eliquis Cardiology following Hypothyroidism Anxiety Allergies Continue home meds as able Critical Care Critically Ill Patient Diagnosis/Problems Diagnosis/Problems (1) COVID-19 Status: Acute (2) Abdominal pain Status: Acute Qualifiers: Abdominal location: generalized Qualified Codes: R10.84 - Generalized abdominal pain (3) Urinary retention Status: Resolved Resolution Date/Time: 06/29/23 @ 18:42 (4) Acute and chronic respiratory failure with hypoxia Status: Acute (5) Pneumothorax on right Status: Resolved Resolution Date/Time: 06/29/23 @ 18:42 (6) Pleural effusion Status: Acute (7) COPD exacerbation Status: Acute (8) Atrial fibrillation with RVR Status: Acute (9) Pneumonia Status: Acute (10) Acute and chronic respiratory failure with hypercapnia Status: Acute MARGIE FARR MD Jun 29, 2023 18:42
[2023-06-29 18:57] VITALS: BP 87/53
[2023-06-29] MEDS ORDERED: ALBUMIN 5% IV ONE (20:30)
[2023-06-29] MEDS ORDERED: DEXTROSE 50% 50 ML (IMS) SYR ONE (20:39)
[2023-06-29] MEDS ORDERED: ALBUMIN 5% 12.5 GM/250 ML 500 ML IV ONE (20:45)
[2023-06-29 22:04] VITALS: BP 85/52
[2023-06-29] MEDS ORDERED: NOREPINEPHRINE INJECTION 16 MG in NS (IVPB) 250 ML 234 ML IV SCH (22:45)
[2023-06-29] MEDS: NOREPINEPHRINE 8 MG/250 ML 250 ML IV SCH (22:51)
[2023-06-30] MEDS: MEROPENEM 500 MG/NS 100 ML IVPB IV SCH ×6 (01:00→18:21)
[2023-06-30 02:38] VITALS: BP 113/63
[2023-06-30] MEDS: RT-ALBUTEROL HFA 8.5 GM INHALER IH SCH ×6 (02:38→22:29)
[2023-06-30 05:22] LABS: HEMATOCRIT 24 % (35-52); HEMOGLOBIN 7.9 g/dL (11.5-16.0); MEAN CORPUSCULAR HEMOGLOBIN 30 pg (25-34); MEAN CORPUSCULAR HGB CONC 33 g/dL (32-36); MEAN CORPUSCULAR VOLUME 91 fL (80-99); MEAN PLATELET VOLUME 9.1 fL (9.0-12.2); PLATELET COUNT 327 10^3/uL (130-400); WHITE BLOOD COUNT 11.2 10^3/uL (4.3-11.0)
[2023-06-30 05:49] LABS: CALCIUM 8.1 MG/DL (8.5-10.1); CREATININE SERUM 0.81 MG/DL (0.60-1.30); MAGNESIUM 1.7 MG/DL (1.6-2.4); POTASSIUM 3.1 MMOL/L (3.6-5.0)
[2023-06-30] MEDS: POTASSIUM CHLORIDE 20 MEQ TABLET PO SCH ×3 (05:57→13:26)
[2023-06-30] MEDS: MAGNESIUM 1 GM/100 ML IVPB 100 ML IV SCH ×6 (05:57→08:42)
[2023-06-30] MEDS: POTASSIUM CL 10MEQ/50ML IVPB 50 ML IV SCH (06:02)
[2023-06-30] MEDS ORDERED: MAGNESIUM 1 GM/100 ML IVPB 400 ML IV ONE (06:05)
[2023-06-30] MEDS: THYROID (ARMOUR) 60 MG TABLET PO SCH (06:19)
[2023-06-30 07:20] VITALS: BP 127/66
[2023-06-30] MEDS ORDERED: ERTAPENEM IV SCH (09:00)
[2023-06-30] MEDS ORDERED: NS IV SCH (09:00)
[2023-06-30 09:05] LABS: ABG BASE EXCESS 8.3 MMOL/L (-2.5-2.5); ABG OXYGEN SATURATION 100 % (94-100); ABG PCO2 39 MMHG (35-45); ABG PH 7.52 (7.37-7.43); ABG PO2 183 MMHG (79-93)
[2023-06-30 09:06] LABS: ALLENS TEST YES-POS
[2023-06-30 09:07] LABS: INSPIRED O2 40%; PATIENT TEMP 36.9; VENTILATOR NO
--- NOTE | 2023-06-30 09:17 | Progress Note - Hospitalist ---
Subjective HPI/CC On Admission Date Seen by Provider: Jun 30, 2023 Pt is a 78yoCf with a PMH COPD, a fib who presented to the ER due to shortness of breath. She states she has not been doing well for the last few months with her COPD and will be short of breath off and on. This morning she woke up and it was much worse prompting her to come to the ER today. When she got here her heart was racing but she was noted to be in sinus tach. Shortly after that her heart rate shot up to the 140s and EKG showed a fib with RVR. She was mildly hypotensive as well. CXR was obtained which showed a right sided pneumothorax. She denies any falls or injuries recently. She denies any chest pain, She denies any nausea or vomiting, fever, leg swelling, or fever. Subjective/Events-last exam Pt is quite sleepy on BiPAP. Does open eyes and answer some questions appropriately but quickly goes back to sleep. Focused Exam Lactate Level 06/29/23 00:00: Lactic Acid Level 0.83 Objective Exam Vital Signs Vital Signs Date Time Temp Pulse Resp B/P (MAP) Pulse Ox O2 Delivery O2 Flow Rate FiO2 06/30/23 13:15 105 113/93 06/30/23 13:15 10 100 High Flow N/C 5.00 06/30/23 12:00 40 06/30/23 04:00 36.4 Capillary Refill : Less Than 3 Seconds General Appearance: Chronically ill, Thin, Other (on BiPAP, appears ill) Respiratory: No Crackles; Decreased Breath Sounds; No Wheezing; Other (on bipap) Cardiovascular: Regular Rate, Rhythm, No Murmur Gastrointestinal: Normal Bowel Sounds, Soft Neurologic/Psychiatric: Alert, Oriented x3, Other (drowsy but does wake up and answer questions) Results/Procedures Lab Laboratory Tests 06/30/23 04:15 Patient resulted labs reviewed. Imaging: Reviewed Imaging Films, Reviewed Imaging Report Assessment/Plan Assessment and Plan Assess & Plan/Chief Complaint Acute on chronic respiratory failure with hypoxia and hypercapnia Pneumothorax, resolved Pleural effusion COVID-19 PNA COPD Chest xray with persistent effusion, no pneumothorax Surgery following, Dr. Cat, chest tube removed TeleICU following Sputum culture with Pseudomonas Completed Zosyn yesterday- Merrem started today by Mamta Martinez Steroids added Continue on BiPAP- repeat ABG A fib with RVR- resolved Off cardizem On levophed though overnight Eliquis Cardiology following Hypothyroidism Anxiety Allergies Continue home meds as able Critical Care Critically Ill Patient JAYCOB FRIEDMAN MD Jun 30, 2023 09:17
--- NOTE | 2023-06-30 09:24 | Physical Therapy Progress Note ---
Therapy Progress Note Patient on Hold per RN due to decline in status. Will continue to monitor patient status. JOHNSON FELIZ PT Jun 30, 2023 09:24
[2023-06-30 09:53] VITALS: BP 114/65
[2023-06-30] MEDS: APIXABAN 2.5 MG TABLET PO SCH ×2 (10:24→20:41)
[2023-06-30] MEDS: FUROSEMIDE INJECTION 40 MG/4 ML VIAL IVP SCH (10:24)
[2023-06-30] MEDS: dexAMETHasone INJ 10 MG/ML 1 ML VIAL IV SCH (10:25)
[2023-06-30] MEDS: NICOTINE 7 MG PATCH TD SCH (10:25)
[2023-06-30] MEDS: NICOTINE PATCH REMOVAL TP SCH (10:26)
--- NOTE | 2023-06-30 11:55 | Diagnostic Imaging Report ---
CHEST 1 VIEW, AP/PA ONLY Indication: PICC placement Comparison: 06/29/2023 Findings: Right PICC has tip terminating in the lower SVC. Stable small right pleural effusion. Increased consolidations in the right lung base. No pneumothorax. Heart is normal in size. Impression: 1. Well-positioned right PICC with tip in the lower SVC. 2. Small right pleural effusion. Dictated by: Dictated on workstation # [id number]
--- NOTE | 2023-06-30 12:54 | Tele-ICU Progress Note ---
Subjective Date Seen by a Provider: Jun 30, 2023 Time Seen by a Provider: 12:53 Subjective/Events-last exam (Tele-ICU Physician , Progress Note ) Service provided via interactive audio and video telecommunications E-CARE system to a patient admitted to ICU bed in [facility]. Patient is seen today due to persistent need of ICU care Available chart/ vitals / labs / Images reviewed Video assessment done using teleICU camera, rest of exam as per RN Discussed with RN Events overnight : abd pain , received fentanyl Afebrile hemodynamically stable Respiratory - I/O =+ Drips: ns 35 - Off NOW Pressors- no Hospital course: (06/20) 78y/o F admitted with AFib/RVR & Lg R pneumothorax. > t Thora-Vent chest tube.. Patient on Eliquis. 06/22- 9 L o2 , converted to sinus , RIGHT lung opacification , mostl likely mucous plug - mucomist added 06/23- cxr same , 3 lNC , no output in chest tube , CT CHEST 06/25 - CHEST TUBE IN PLACE _ 20 cm SUCCTIONS , 20 ML output , CXR 06/27 - COVID + , abd pain , AFIB RVR_ cardizem gtt , chest tube removed 06/28- hypotensive , IVF fluid 1 L 06/29- back to afib RVR intermittent, BIPAP 06/30 - LEVO , Bipap off , PICC right - MERREM A/P Shock 06/30 - ? 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 calculous cholecystitis. 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 Discussed with RN to reach out if any questions or concerns A total of 20 minutes of critical care time was devoted to this patient today, required to treat and/or prevent further deterioration of critical care condition ( as above ) . I am remotely monitoring this patient from another state. I am unable to do the bedside exam, and history/physical and pertinent information is taken from other notes in the computer and bedside staff. . Sepsis Event Evaluation Height, Weight, BMI Height: 5'3.00" Weight: 110lbs. 0.0oz. 49.511443hi; 19.91 BMI Method:Stated Focused Exam Lactate Level 06/29/23 00:00: Lactic Acid Level 0.83 Exam Exam Patient acknowledged, consented, and participated in this virtual visit which was conducted using real time audio/video Vital Signs Date Time Temp Pulse Resp B/P (MAP) Pulse Ox O2 Delivery O2 Flow Rate FiO2 06/30/23 12:08 126 06/30/23 12:00 117 11 113/67 (82) 100 NIV Bilevel 30.00 06/30/23 11:00 113 14 130/83 (99) 100 NIV Bilevel 30.00 06/30/23 10:22 90 117/65 06/30/23 10:00 106 16 106/65 (79) 94 NIV Bilevel 30.00 06/30/23 09:53 109 19 94 25.00 06/30/23 09:47 117 116/74 06/30/23 09:00 98 9 123/77 (92) 95 NIV Bilevel 30.00 06/30/23 08:50 NIV Bilevel 30.00 06/30/23 08:00 98 NIV Bilevel 40 06/30/23 08:00 81 9 124/65 (84) 94 NIV Bilevel 40.00 06/30/23 07:45 77 06/30/23 07:20 80 22 95 30.00 06/30/23 07:00 76 14 124/67 (86) 92 NIV Bilevel 40.00 06/30/23 06:45 108 14 116/82 (93) 91 NIV Bilevel 40.00 06/30/23 06:30 95 29 145/79 (101) 91 NIV Bilevel 40.00 06/30/23 06:15 93 17 121/72 (79) 95 NIV Bilevel 40.00 06/30/23 06:00 92 16 119/72 (81) 95 NIV Bilevel 40.00 06/30/23 05:45 93 19 119/69 (82) 96 NIV Bilevel 40.00 06/30/23 05:30 90 17 123/79 (99) 97 NIV Bilevel 40.00 06/30/23 05:15 89 19 117/75 (89) 97 NIV Bilevel 40.00 06/30/23 05:00 91 20 114/65 (79) 95 NIV Bilevel 40.00 06/30/23 04:45 92 25 109/74 (84) 96 NIV Bilevel 40.00 06/30/23 04:30 98 26 116/73 (87) 95 NIV Bilevel 40.00 06/30/23 04:22 97 NIV Bilevel 40 06/30/23 04:15 90 20 120/79 (87) 95 NIV Bilevel 40.00 06/30/23 04:00 36.4 105 18 115/55 (73) 96 NIV Bilevel 40.00 06/30/23 03:45 96 16 105/66 (73) 97 NIV Bilevel 40.00 06/30/23 03:30 107 20 104/60 (77) 96 NIV Bilevel 40.00 06/30/23 03:15 101 15 111/69 (83) 93 NIV Bilevel 40.00 06/30/23 03:00 88 18 124/80 (90) 93 NIV Bilevel 40.00 06/30/23 02:45 89 14 118/71 (90) 95 NIV Bilevel 40.00 06/30/23 02:38 86 21 100 40.00 06/30/23 02:30 68 20 113/63 (81) 100 NIV Bilevel 40.00 06/30/23 02:15 63 20 87/54 (62) 99 NIV Bilevel 40.00 06/30/23 02:00 65 27 62/41 (47) 98 NIV Bilevel 40.00 06/30/23 01:45 95 24 57/41 (48) 98 NIV Bilevel 40.00 06/30/23 01:30 93 17 86/60 (68) 99 NIV Bilevel 40.00 06/30/23 01:15 98/69 (74) 40.00 06/30/23 01:00 94 06/30/23 01:00 80 17 94/54 (76) 99 NIV Bilevel 40.00 06/30/23 00:45 82 17 87/52 (63) 99 NIV Bilevel 40.00 06/30/23 00:30 36.5 84 17 98/58 (73) 99 NIV Bilevel 40.00 06/30/23 00:30 80 19 98/58 (73) 99 NIV Bilevel 40.00 06/30/23 00:15 81 18 105/57 (72) 99 NIV Bilevel 40.00 06/30/23 00:15 77 20 105/57 (72) 99 NIV Bilevel 40.00 06/30/23 00:00 86 19 102/72 (76) 98 NIV Bilevel 40.00 06/30/23 00:00 85 18 102/72 (76) 98 NIV Bilevel 40.00 06/29/23 23:59 97 NIV Bilevel 40 06/29/23 23:45 91 16 112/81 (94) 96 NIV Bilevel 40.00 06/29/23 23:45 87 20 112/81 (94) 97 NIV Bilevel 40.00 06/29/23 23:30 79 18 101/59 (74) 100 NIV Bilevel 40.00 06/29/23 23:30 85 14 101/59 (74) 100 NIV Bilevel 40.00 06/29/23 23:15 60 19 96/57 (70) 100 NIV Bilevel 40.00 06/29/23 23:15 77 19 96/57 (70) 100 NIV Bilevel 40.00 06/29/23 23:10 60 18 94/51 (67) 100 NIV Bilevel 40.00 06/29/23 23:10 58 18 94/51 (67) 100 NIV Bilevel 40.00 06/29/23 23:00 56 15 80/48 (61) 100 NIV Bilevel 40.00 06/29/23 23:00 58 19 80/48 (61) 100 NIV Bilevel 40.00 06/29/23 22:51 62 69/43 06/29/23 22:45 75 22 61/33 (46) 99 NIV Bilevel 40.00 06/29/23 22:45 82 18 61/33 (46) 99 NIV Bilevel 40.00 06/29/23 22:32 93 17 61/35 (50) 100 NIV Bilevel 40.00 06/29/23 22:32 89 16 61/35 (50) 99 NIV Bilevel 40.00 06/29/23 22:30 87 23 67/39 (51) 99 NIV Bilevel 40.00 06/29/23 22:30 86 19 67/39 (51) 100 NIV Bilevel 40.00 06/29/23 22:15 84 21 69/43 (52) 99 NIV Bilevel 40.00 06/29/23 22:04 83 20 97 40.00 06/29/23 22:00 93 16 85/52 (63) 98 NIV Bilevel 40.00 06/29/23 21:45 93 20 82/38 (57) 99 NIV Bilevel 40.00 06/29/23 21:30 81 19 102/54 (70) 98 NIV Bilevel 40.00 06/29/23 21:15 89 17 117/58 (86) 97 NIV Bilevel 40.00 06/29/23 21:00 73 22 99/50 (75) 99 NIV Bilevel 40.00 06/29/23 20:54 59 17 58/27 (40) 98 NIV Bilevel 40.00 06/29/23 20:45 62 20 55/27 (39) 99 NIV Bilevel 40.00 06/29/23 20:30 67 21 61/31 (41) 99 NIV Bilevel 40.00 06/29/23 20:15 68 20 60/37 (44) 98 NIV Bilevel 40.00 06/29/23 20:01 69 20 63/31 (44) 99 NIV Bilevel 40.00 06/29/23 20:00 68 20 64/37 (45) 99 NIV Bilevel 40.00 06/29/23 20:00 98 NIV Bilevel 40 06/29/23 19:57 36.5 06/29/23 19:45 75 21 95/45 (65) 97 NIV Bilevel 40.00 06/29/23 19:30 75 19 119/78 (87) 99 NIV Bilevel 40.00 06/29/23 19:15 75 29 106/63 (75) 99 NIV Bilevel 40.00 06/29/23 19:00 74 19 117/66 (82) 98 NIV Bilevel 40.00 06/29/23 19:00 74 06/29/23 18:57 75 22 97 40.00 06/29/23 18:00 71 20 106/55 (81) 98 High Flow N/C 5.00 06/29/23 17:00 68 15 102/65 (77) 100 High Flow N/C 5.00 06/29/23 16:30 36.5 06/29/23 16:00 98 NIV Bilevel 40 06/29/23 16:00 80 20 84/63 (70) 100 High Flow N/C 5.00 06/29/23 15:15 63 23 100 40.00 06/29/23 15:00 53 18 82/50 (61) 99 High Flow N/C 5.00 06/29/23 14:45 68/50 06/29/23 14:30 77/46 06/29/23 14:00 67 15 88/55 (65) 98 High Flow N/C 5.00 06/29/23 13:04 105 106/73 06/29/23 13:00 120 14 106/73 (86) 97 High Flow N/C 5.00 I & O 06/30/23 07:00 Intake Total 1050 ml Output Total 3100 ml Balance -2050 ml Height & Weight Height: 5'3.00" Weight: 110lbs. 0.0oz. 49.859828ba; 19.91 BMI Method:Stated General Appearance: Chronically ill, Thin, Other (on BiPAP, appears ill) HEENT: PERRL/EOMI Neck: Full Range of Motion Respiratory: No Crackles; Decreased Breath Sounds; No Wheezing; Other (on bipap) Cardiovascular: Regular Rate, Rhythm, No Murmur Capillary Refill: Less Than 3 Seconds Gastrointestinal: normal bowel sounds, soft, tenderness Extremity: Normal Inspection, No Pedal Edema Neurologic/Psychiatric: Other (drowsy but does wake up and answer questions) Skin: Normal Color, Warm/Dry Lymphatic: No Adenopathy Results Lab Laboratory Tests 06/29/23 03:37 06/30/23 04:15 Assessment/Plan Assessment/Plan 1 ARLEEN GIL MD Jun 30, 2023 12:54
[2023-06-30] MEDS: guaiFENesin 600 MG TABLET PO SCH ×2 (12:59→20:40)
[2023-06-30] MEDS: NIRMATRELVIR/RITONAVIR (PAXLOVID) TABLET PO SCH ×2 (13:04→20:41)
[2023-06-30] MEDS: LORATADINE 10 MG TABLET PO SCH (13:04)
[2023-06-30] MEDS: [UNRECOGNIZED DRUG - OTHER] IV SCH ×2 (18:22→19:12)
[2023-06-30] MEDS: NOREPINEPHRINE 8 MG/250 ML 250 ML IV SCH (18:26)
[2023-06-30] MEDS: ALPRAZolam 0.25 MG TABLET PO PRN (20:42)
[2023-06-30 22:29] VITALS: BP 88/44
[2023-06-30] MEDS: HYDROcodone/ACETAMINOPHEN 5 MG/325 MG TABLET PO PRN (23:01)
[2023-07-01] MEDS: MEROPENEM 500 MG/NS 100 ML IVPB IV SCH ×6 (00:39→16:49)
[2023-07-01] MEDS ORDERED: PHENYLEPHRINE DRIP 250 ML IV SCH (02:15)
[2023-07-01] MEDS ORDERED: ALBUMIN 5% 12.5 GM/250 ML 250 ML IV ONE ×2 (02:15→02:17)
[2023-07-01] MEDS ORDERED: PHENYLEPHRINE DRIP 250 ML IV ONE (02:17)
[2023-07-01 02:30] VITALS: BP 98/49
[2023-07-01] MEDS: RT-ALBUTEROL HFA 8.5 GM INHALER IH SCH ×6 (02:30→21:36)
[2023-07-01 02:53] LABS: BASOPHILS % (AUTO) 0 % (0-10); EOSINOPHILS % (AUTO) 0 % (0-10); HEMATOCRIT 26 % (35-52); HEMOGLOBIN 8.5 g/dL (11.5-16.0); LYMPHOCYTES # (AUTO) 0.9 10^3/uL (1.0-4.0); LYMPHOCYTES % (AUTO) 9 % (12-44); MEAN CORPUSCULAR HEMOGLOBIN 30 pg (25-34); MEAN CORPUSCULAR HGB CONC 32 g/dL (32-36); MEAN CORPUSCULAR VOLUME 91 fL (80-99); MEAN PLATELET VOLUME 8.5 fL (9.0-12.2); MONOCYTES # (AUTO) 0.3 10^3/uL (0.0-1.0); MONOCYTES % (AUTO) 3 % (0-12); NEUTROPHILS # (AUTO) 8.7 10^3/uL (1.8-7.8); NEUTROPHILS % (AUTO) 87 % (42-75); PLATELET COUNT 352 10^3/uL (130-400)
[2023-07-01 02:59] LABS: POTASSIUM 2.7 MMOL/L (3.6-5.0)
[2023-07-01 03:00] LABS: CALCIUM 8.3 MG/DL (8.5-10.1)
[2023-07-01 03:05] LABS: CREATININE SERUM 0.84 MG/DL (0.60-1.30); PHOSPHORUS 2.5 MG/DL (2.3-4.7)
[2023-07-01 03:07] LABS: MAGNESIUM 2.4 MG/DL (1.6-2.4)
[2023-07-01 03:11] LABS: LYMPHOCYTES % (MANUAL) 7 %; MONOCYTES % (MANUAL) 1 %; NEUTROPHILS % (MANUAL) 92 %; RBC MORPH NORMAL
[2023-07-01] MEDS: POTASSIUM CHLORIDE 20 MEQ TABLET PO SCH (03:54)
[2023-07-01] MEDS: MAGNESIUM 1 GM/100 ML IVPB 100 ML IV SCH (03:54)
[2023-07-01] MEDS: POTASSIUM CL 10MEQ/50ML IVPB 50 ML IV SCH ×8 (03:54→12:32)
[2023-07-01] MEDS: fentaNYL INJECTION 100 MCG/2 ML VIAL IVP PRN (05:21)
[2023-07-01] MEDS: THYROID (ARMOUR) 60 MG TABLET PO SCH (05:59)
[2023-07-01 07:19] VITALS: BP 135/69
--- NOTE | 2023-07-01 07:47 | Cardiology Progress Note ---
Subjective Date Seen by Provider: Jul 01, 2023 Time Seen by Provider: 07:45 Subjective/Events-last exam Patient was seen at bedside maintained on BiPAP, lethargic Focused Exam Lactate Level 06/29/23 00:00: Lactic Acid Level 0.83 Objective-Cardiology Exam Last Set of Vital Signs Vital Signs 06/30/23 07/01/23 07/01/23 07/01/23 23:55 06:45 07:18 07:19 Temp 36.2 Pulse 81 Resp 19 B/P (MAP) 125/83 (91) Pulse Ox 96 O2 Delivery High Flow N/C O2 Flow Rate 45.00 FiO2 35 I&O Intake and Output 07/01/23 00:00 Intake Total 1550 ml Output Total 4525 ml Balance -2975 ml Intake Oral 450 ml IV Total 1100 ml Output Urine Total 4525 ml General: Alert, Oriented X3, Cooperative HEENT: Atraumatic, PERRLA Neck: Supple, No JVD, No Thyromegaly Lungs: Clear to Auscultation, Normal Air Movement Heart: Regular Rate, Normal S1, Normal S2, No Murmurs Abdomen: Normal Bowel Sounds, Soft, No Tenderness, No Hepatosplenomegaly, No Masses Extremities: No Clubbing, No Cyanosis, No Edema, Normal Pulses, No Tenderness/Swelling Skin: No Rashes, No Breakdown, No Significant Lesion Neuro: Normal Gait, Normal Speech, Strength at 5/5 X4 Ext, Normal Tone, Sensation Intact Psych/Mental Status: Mental Status NL, Mood NL Results Lab Laboratory Tests 07/01/23 02:35 A/P-Cardiology Admission Diagnosis Shortness of breath Right pneumothorax Acute exacerbation of COPD Paroxysmal atrial fibrillation Assessment/Plan Status post spontaneous pneumothorax - Still with chest tube. - eliquis 2.5mg bid restarted Acute respiratory failure, maintained on BiPAP Received 1 dose of Lasix, appeared to be hypovolemic COVID-19 infection, patient initially was tested negative, currently positive Started on Paxlovid Paroxysmal atrial fibrillation with rapid ventricular response, converted to sinus rhythm, now back in A-fib with controlled ventricular response. - oral anticoagulation restarted (eliquis 2.5 bid), chest tube is in place. Currently off Cardizem drip. Back in sinus rhythm Continue to monitor Hypotensive shock, maintained on Levophed and Noé-Synephrine Trying to wean her off pressors and monitor blood pressure Anemia, monitor H&H History of tobacco AKOSUA NEWELL MD Jul 01, 2023 07:47
[2023-07-01] MEDS: dexAMETHasone INJ 10 MG/ML 1 ML VIAL IV SCH (09:02)
[2023-07-01] MEDS: NICOTINE 7 MG PATCH TD SCH (09:02)
[2023-07-01] MEDS: NICOTINE PATCH REMOVAL TP SCH (09:02)
[2023-07-01] MEDS: guaiFENesin 600 MG TABLET PO SCH ×2 (09:03→21:05)
[2023-07-01] MEDS: HYDROcodone/ACETAMINOPHEN 5 MG/325 MG TABLET PO PRN (09:04)
[2023-07-01] MEDS: APIXABAN 2.5 MG TABLET PO SCH ×2 (09:05→21:05)
[2023-07-01] MEDS: ALPRAZolam 0.25 MG TABLET PO PRN (09:05)
[2023-07-01] MEDS: LORATADINE 10 MG TABLET PO SCH (09:05)
[2023-07-01] MEDS: NIRMATRELVIR/RITONAVIR (PAXLOVID) TABLET PO SCH ×2 (09:07→21:07)
--- NOTE | 2023-07-01 10:31 | Occ Therapy Progress Note ---
Therapy Progress Note Respiratory decline d/t new COVID status, RN request therapy hold, OT will monitor. MILANA BARON OT Jul 01, 2023 10:31
--- NOTE | 2023-07-01 10:51 | Progress Note - Hospitalist ---
Subjective HPI/CC On Admission Date Seen by Provider: Jul 01, 2023 Pt is a 78yoCf with a PMH COPD, a fib who presented to the ER due to shortness of breath. She states she has not been doing well for the last few months with her COPD and will be short of breath off and on. This morning she woke up and it was much worse prompting her to come to the ER today. When she got here her heart was racing but she was noted to be in sinus tach. Shortly after that her heart rate shot up to the 140s and EKG showed a fib with RVR. She was mildly hypotensive as well. CXR was obtained which showed a right sided pneumothorax. She denies any falls or injuries recently. She denies any chest pain, She denies any nausea or vomiting, fever, leg swelling, or fever. Subjective/Events-last exam Pt reports doing ok today. No complaints. Off BiPAP and on 6lpm. Focused Exam Lactate Level 06/29/23 00:00: Lactic Acid Level 0.83 Objective Exam Vital Signs Vital Signs Date Time Temp Pulse Resp B/P (MAP) Pulse Ox O2 Delivery O2 Flow Rate FiO2 07/01/23 10:00 73 16 94/51 (65) 90 High Flow N/C 8.00 07/01/23 09:12 36.8 06/30/23 23:55 35 Capillary Refill : Less Than 3 Seconds General Appearance: No Apparent Distress, Chronically ill, Thin Respiratory: Decreased Breath Sounds; No Wheezing; Other (on 6lpm ) Cardiovascular: Regular Rate, Rhythm, No Murmur Gastrointestinal: Normal Bowel Sounds, Soft Neurologic/Psychiatric: Alert, Oriented x3 Results/Procedures Lab Laboratory Tests 07/01/23 02:35 Patient resulted labs reviewed. Imaging: Reviewed Imaging Films, Reviewed Imaging Report Assessment/Plan Assessment and Plan Assess & Plan/Chief Complaint Acute on chronic respiratory failure with hypoxia and hypercapnia Pneumothorax, resolved Pleural effusion COVID-19 PNA COPD Chest xray with persistent effusion, no pneumothorax Surgery following, Dr. Cat, chest tube removed TeleICU following Sputum culture with Pseudomonas Continue Merrem Paxlovid Steroids Continue on BiPAP prn Consider LTACH if unable to wean off BiPAP A fib with RVR- resolved On levophed and phenylephrine overnight- levo off this AM and weaning phenylephrine hypotension likely due to overdiuresis- almost 5.5L negative in 2 day Lasix held Eliquis Cardiology following Hypothyroidism Anxiety Allergies Continue home meds as able Critical Care Critically Ill Patient JAYCOB FRIEDMAN MD Jul 01, 2023 10:51
[2023-07-01 11:16] VITALS: BP 98/51
[2023-07-01 11:34] LABS: ABG BASE EXCESS 8.3 MMOL/L (-2.5-2.5); ABG OXYGEN SATURATION 98 % (94-100); ABG PCO2 45 MMHG (35-45); ABG PH 7.46 (7.37-7.43); ABG PO2 78 MMHG (79-93); ABG TCO2 33.9 MMOL/L (21.0-31.0)
--- NOTE | 2023-07-01 11:38 | Physical Therapy Progress Note ---
Therapy Progress Note Patient currently on BiPap and declined therapy at this time. RN notified. JOHNSON FELIZ PT Jul 01, 2023 11:38
[2023-07-01 11:42] LABS: ALLENS TEST YES-POS; INSPIRED O2 55% BIPAP; PATIENT TEMP 36.4; VENTILATOR NO
--- NOTE | 2023-07-01 13:22 | Tele-ICU Progress Note ---
Subjective Date Seen by a Provider: Jul 01, 2023 Time Seen by a Provider: 13:20 Subjective/Events-last exam (Tele-ICU Physician , Progress Note ) Service provided via interactive audio and video telecommunications E-CARE s ystem to a patient admitted to ICU bed in [facility]. Patient is seen today due to persistent need of ICU care Available chart/ vitals / labs / Images reviewed Video assessment done using teleICU camera, rest of exam as per RN Discussed with RN Subjective: 07/01-Overnight noted to have afib with RVR for which she was previously on cardizem and required levophed for hypotension which have now been discontinued. Currently off all pressors. On 6L via MO Hospital course: 06/20 78y/o F admitted with AFib/RVR & Lg R pneumothorax. > t Thora-Vent chest tube 06/22- 9 L o2 , converted to sinus , RIGHT lung opacification , mostl likely mucous plug - mucomist added 06/23- cxr same , 3 lNC , no output in chest tube , CT CHEST 06/25 - CHEST TUBE IN PLACE _ 20 cm SUCCTIONS , 20 ML output , CXR 06/27 - COVID + , abd pain , AFIB RVR_ cardizem gtt , chest tube removed 06/28- hypotensive , IVF fluid 1 L 06/29- back to afib RVR intermittent, BIPAP 06/30 - LEVO , Bipap off , PICC right - MERREM, Afib on and off, Chest tube removed A/P Mixed septic/hypovolemic shock: MAPs improved. Off pressors -Cont meropenem for CAP (sputum + pseudomonas) COVID + 06/26 -Will obtain CXR -on Paxlovid - bronchodilators - Cont steroids IV 06/30 UTI with PSA -Cont Meropenem Acute COPD exacerbation: Currently on med nebs -Cont BiPAP as tolerated -Cont steroids for COIVD Pneumothorax: Resolved Chest tube removed 06/30. A fib RVR , h/o PAF: Now in sinus. -Cont to monitor. Cards following. 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 Discussed with RN to reach out if any questions or concerns A total of 5 minutes of critical care time was devoted to this patient today, required to treat and/or prevent further deterioration of critical care condition (as above) . I am remotely monitoring this patient from another state. I am unable to do the bedside exam, and history/physical and pertinent information is taken from other notes in the computer and bedside staff. . Sepsis Event Evaluation Height, Weight, BMI Height: 5'3.00" Weight: 110lbs. 0.0oz. 49.705455rr; 19.91 BMI Method:Stated Focused Exam Lactate Level 06/29/23 00:00: Lactic Acid Level 0.83 07/01/23 12:40: Lactic Acid Level 0.59 Lactic Acid Level Laboratory Tests Test 07/01/23 12:40 Lactic Acid Level 0.59 MMOL/L (0.50-2.00) Exam Exam Patient acknowledged, consented, and participated in this virtual visit which was conducted using real time audio/video Vital Signs Date Time Temp Pulse Resp B/P (MAP) Pulse Ox O2 Delivery O2 Flow Rate FiO2 07/01/23 12:16 76 07/01/23 12:03 92 High Flow N/C 9.00 07/01/23 11:37 36.1 07/01/23 11:16 75 18 97 55.00 07/01/23 11:00 75 16 106/59 (75) 90 High Flow N/C 8.00 07/01/23 10:00 73 16 94/51 (65) 90 High Flow N/C 8.00 07/01/23 09:12 36.8 74 11 97/73 (81) 91 High Flow N/C 8.00 07/01/23 09:12 High Flow N/C 8.00 07/01/23 09:00 74 97/73 07/01/23 09:00 68 13 97/73 (81) 90 High Flow N/C 9.00 07/01/23 08:45 79 96/53 07/01/23 08:30 102/63 07/01/23 08:15 93 103/64 07/01/23 08:10 87 99/71 07/01/23 08:05 89 100/57 07/01/23 08:00 92 High Flow N/C 9.00 07/01/23 08:00 68 35 99/71 (80) 97 High Flow N/C 9.00 07/01/23 08:00 102/60 07/01/23 07:50 83/70 07/01/23 07:45 127/70 07/01/23 07:45 127/70 07/01/23 07:19 81 19 96 45.00 07/01/23 07:18 36.2 07/01/23 07:09 75 07/01/23 07:00 98 31 120/83 (95) 93 High Flow N/C 9.00 07/01/23 06:45 61 23 125/83 (91) 92 High Flow N/C 9.00 07/01/23 06:30 85 11 127/78 (94) 91 High Flow N/C 9.00 07/01/23 06:15 78 8 128/63 (87) 92 High Flow N/C 9.00 07/01/23 06:00 86 9 98/71 (78) 90 High Flow N/C 9.00 07/01/23 05:45 77 39 118/77 (97) 92 High Flow N/C 9.00 07/01/23 05:30 75 30 121/61 (83) 92 High Flow N/C 9.00 07/01/23 05:14 98 36 114/70 (84) 90 High Flow N/C 9.00 07/01/23 05:00 83 11 105/66 (78) 93 High Flow N/C 9.00 07/01/23 04:45 64 12 109/58 (73) 92 High Flow N/C 9.00 07/01/23 04:30 94 9 117/74 (87) 93 High Flow N/C 9.00 07/01/23 04:15 90 17 105/58 (70) 89 NIV Bilevel 35.00 07/01/23 04:07 92 High Flow N/C 9.00 07/01/23 04:00 89 23 123/61 (83) 90 NIV Bilevel 35.00 07/01/23 03:45 126 22 120/75 (88) 90 NIV Bilevel 35.00 07/01/23 03:30 84 11 116/70 (86) 92 NIV Bilevel 35.00 07/01/23 03:15 79 12 114/72 (86) 92 NIV Bilevel 35.00 07/01/23 03:00 87 23 110/67 (76) 92 NIV Bilevel 35.00 07/01/23 02:45 108/72 (79) NIV Bilevel 35.00 07/01/23 02:30 80 18 98/49 (67) 97 NIV Bilevel 35.00 07/01/23 02:30 96 20 96 35.00 07/01/23 02:28 79 88/57 07/01/23 02:15 91 19 88/57 (68) 95 NIV Bilevel 35.00 07/01/23 02:00 80 12 75/46 (60) 95 NIV Bilevel 35.00 07/01/23 01:45 85 20 92/51 (56) 93 NIV Bilevel 35.00 07/01/23 01:30 82/47 (55) 07/01/23 01:15 84 17 89/55 (65) 91 NIV Bilevel 30.00 07/01/23 01:05 96 12 80/54 (63) 92 NIV Bilevel 30.00 07/01/23 01:00 72 15 70/44 (51) 94 NIV Bilevel 30.00 07/01/23 01:00 81 07/01/23 00:45 82 7 120/62 (87) 95 NIV Bilevel 30.00 07/01/23 00:30 77 16 81/52 (68) 94 NIV Bilevel 30.00 07/01/23 00:15 76 18 103/54 (63) 94 NIV Bilevel 30.00 07/01/23 00:00 80 14 80/59 (64) 93 NIV Bilevel 30.00 07/01/23 00:00 36.5 06/30/23 23:55 94 NIV Bilevel 35 06/30/23 23:45 89 14 84/55 (64) 94 NIV Bilevel 30.00 06/30/23 23:30 79 17 95/59 (67) 93 NIV Bilevel 30.00 06/30/23 23:15 77 19 94/67 (76) 89 NIV Bilevel 30.00 06/30/23 23:00 79 16 89/59 (70) 90 NIV Bilevel 30.00 06/30/23 22:45 84 12 95/57 (74) 91 NIV Bilevel 30.00 06/30/23 22:30 103 19 76/50 (57) 89 NIV Bilevel 30.00 06/30/23 22:29 96 18 91 30.00 06/30/23 22:15 80 17 88/44 (57) 89 High Flow N/C 12.00 06/30/23 22:00 95 17 84/55 (64) 91 High Flow N/C 12.00 06/30/23 21:45 71 16 91/53 (66) 90 High Flow N/C 12.00 06/30/23 21:30 80 26 89/58 (62) 91 High Flow N/C 12.00 06/30/23 21:15 76 58 96/62 (69) 91 High Flow N/C 12.00 06/30/23 21:00 109 11 91/68 (74) 91 High Flow N/C 12.00 06/30/23 20:45 98 25 95/65 (79) 92 High Flow N/C 12.00 06/30/23 20:30 71 15 93/58 (69) 91 High Flow N/C 12.00 06/30/23 20:15 82 58 94/54 (71) 92 High Flow N/C 12.00 06/30/23 20:05 91 High Flow N/C 12.00 06/30/23 20:00 84 17 99/54 (65) 90 High Flow N/C 12.00 06/30/23 19:45 92 13 84/52 (59) 90 High Flow N/C 12.00 06/30/23 19:41 35.5 06/30/23 19:30 96 19 86/59 (71) 90 High Flow N/C 8.00 06/30/23 19:15 81 45 91/60 (72) 91 High Flow N/C 5.00 06/30/23 19:12 80 87/44 06/30/23 19:00 90 06/30/23 19:00 84 28 97/42 (73) 91 High Flow N/C 5.00 06/30/23 18:48 94 Nasal Cannula 5.00 06/30/23 18:26 80 87/44 06/30/23 18:00 90 25 97/69 (78) 90 High Flow N/C 5.00 06/30/23 17:00 105 10 95/65 (75) 92 High Flow N/C 5.00 06/30/23 16:09 36.5 06/30/23 16:00 102 16 98/69 (79) 90 High Flow N/C 5.00 06/30/23 16:00 98 NIV Bilevel 40 06/30/23 15:24 96 Nasal Cannula 5.00 06/30/23 15:00 106 20 88/61 (70) 93 High Flow N/C 5.00 06/30/23 14:00 103 16 115/72 (86) 92 High Flow N/C 5.00 l I & O 07/01/23 06:59 Intake Total 1375 ml Output Total 3950 ml Balance -2575 ml Height & Weight Height: 5'3.00" Weight: 110lbs. 0.0oz. 49.265122bk; 19.91 BMI Method:Stated General Appearance: No Apparent Distress, Chronically ill, Thin HEENT: PERRL/EOMI Neck: Full Range of Motion Respiratory: Decreased Breath Sounds; No Wheezing; Other (on 6lpm ) Cardiovascular: Regular Rate, Rhythm, No Murmur Capillary Refill: Less Than 3 Seconds Gastrointestinal: normal bowel sounds, soft, tenderness Extremity: Normal Inspection, No Pedal Edema Neurologic/Psychiatric: Alert, Oriented x3 Skin: Normal Color, Warm/Dry Lymphatic: No Adenopathy Results Lab Laboratory Tests 06/30/23 04:15 07/01/23 02:35 Assessment/Plan Assessment/Plan . ALESSANDRO OTT MD Jul 01, 2023 13:22
--- NOTE | 2023-07-01 13:48 | Diagnostic Imaging Report ---
CHEST 1 VIEW, AP/PA ONLY INDICATION: Increasing oxygen requirements, hypoxia. COMPARISON: 06/30/2023. FINDINGS: Stable right PICC. Small right pleural effusion is unchanged. Basilar linear opacities are similar. Stable cardiomegaly. IMPRESSION: 1. Unchanged small right pleural effusion. 2. No adverse development. Dictated by: Dictated on workstation # [id number]
[2023-07-01 14:32] LABS: POTASSIUM 4.5 MMOL/L (3.6-5.0)
[2023-07-01 14:33] LABS: CALCIUM 8.6 MG/DL (8.5-10.1)
[2023-07-01 14:37] LABS: CREATININE SERUM 0.75 MG/DL (0.60-1.30)
[2023-07-01] MEDS: NOREPINEPHRINE 8 MG/250 ML 250 ML IV SCH (22:06)
[2023-07-02] MEDS: MEROPENEM 500 MG/NS 100 ML IVPB IV SCH ×4 (01:09→08:30)
[2023-07-02] MEDS: RT-ALBUTEROL HFA 8.5 GM INHALER IH SCH ×6 (01:21→23:13)
[2023-07-02 04:21] LABS: HEMATOCRIT 23 % (35-52); HEMOGLOBIN 7.3 g/dL (11.5-16.0); MEAN CORPUSCULAR HEMOGLOBIN 29 pg (25-34); MEAN CORPUSCULAR HGB CONC 32 g/dL (32-36); MEAN CORPUSCULAR VOLUME 92 fL (80-99); MEAN PLATELET VOLUME 8.9 fL (9.0-12.2); PLATELET COUNT 241 10^3/uL (130-400); WHITE BLOOD COUNT 8.4 10^3/uL (4.3-11.0)
[2023-07-02 04:39] LABS: CALCIUM 8.7 MG/DL (8.5-10.1); CREATININE SERUM 0.74 MG/DL (0.60-1.30); MAGNESIUM 2.2 MG/DL (1.6-2.4); POTASSIUM 3.9 MMOL/L (3.6-5.0)
[2023-07-02] MEDS: POTASSIUM CL 10MEQ/50ML IVPB 50 ML IV SCH (05:16)
[2023-07-02] MEDS: MAGNESIUM 1 GM/100 ML IVPB 100 ML IV SCH (05:16)
[2023-07-02] MEDS: POTASSIUM CHLORIDE 20 MEQ TABLET PO SCH (05:16)
[2023-07-02] MEDS: THYROID (ARMOUR) 60 MG TABLET PO SCH (05:58)
[2023-07-02] MEDS: fentaNYL INJECTION 100 MCG/2 ML VIAL IVP PRN (06:10)
[2023-07-02] MEDS ORDERED: POTASSIUM CHLORIDE 20 MEQ TABLET PO ONE (08:00)
[2023-07-02] MEDS: APIXABAN 2.5 MG TABLET PO SCH ×2 (08:29→19:51)
[2023-07-02] MEDS: NICOTINE 7 MG PATCH TD SCH (08:30)
[2023-07-02] MEDS: dexAMETHasone INJ 10 MG/ML 1 ML VIAL IV SCH (08:30)
[2023-07-02] MEDS: LORATADINE 10 MG TABLET PO SCH (08:30)
[2023-07-02] MEDS: FAMOTIDINE 20 MG TABLET PO SCH (08:30)
[2023-07-02] MEDS: guaiFENesin 600 MG TABLET PO SCH ×2 (08:30→19:51)
[2023-07-02] MEDS: NIRMATRELVIR/RITONAVIR (PAXLOVID) TABLET PO SCH ×2 (08:36→19:52)
[2023-07-02] MEDS: NICOTINE PATCH REMOVAL TP SCH (08:39)
[2023-07-02] MEDS: [UNRECOGNIZED DRUG - OTHER] IV SCH (10:14)
--- NOTE | 2023-07-02 10:19 | Tele-ICU Progress Note ---
Subjective Date Seen by a Provider: Jul 02, 2023 Time Seen by a Provider: 10:14 Subjective/Events-last exam Tele-ICU Physician , Progress Note ) Service provided via interactive audio and video telecommunications E-CARE system to a patient admitted to ICU bed in [facility]. Patient is seen today due to persistent need of ICU care Available chart/ vitals / labs / Images reviewed Video assessment done using teleICU camera, rest of exam as per RN Discussed with RN Events overnight : Afebrile hemodynamically stable Respiratory - I/O = Drips: Pressors- no 78 F admitted on 06/20 for SOB, a fib with RVR and large right PMNTX, Now off IV Cardizem, Had chest tube removed on 06/27, 06/28 became hypotensive but now improved Now has SOB with any activity, bilateral rhonchi/wheezing, Not willing to wear BiPAP, now on hi flow @ 9 lpm, severe COPD 06/27 serology + for Covid, on Decadron, Paxlovid CXR yesterday shows volume loss RLL, Sepsis Event Evaluation Height, Weight, BMI Height: 5'3.00" Weight: 110lbs. 0.0oz. 49.220276ts; 19.55 BMI Method:Stated Focused Exam Lactate Level 07/01/23 12:40: Lactic Acid Level 0.59 Exam Exam Patient acknowledged, consented, and participated in this virtual visit which was conducted using real time audio/video Vital Signs Date Time Temp Pulse Resp B/P (MAP) Pulse Ox O2 Delivery O2 Flow Rate FiO2 07/02/23 10:00 80 14 110/55 (73) 100 High Flow N/C 9.00 07/02/23 09:00 81 15 112/62 (79) 90 High Flow N/C 9.00 07/02/23 08:53 High Flow N/C 9.00 07/02/23 08:48 94 High Flow N/C 8.00 07/02/23 08:29 36.4 07/02/23 08:00 80 19 118/66 (83) 94 High Flow N/C 6.00 07/02/23 07:47 96 Nasal Cannula 9.00 07/02/23 07:34 76 07/02/23 07:00 76 13 116/67 (83) 93 High Flow N/C 6.00 07/02/23 06:55 86 13 89 High Flow N/C 6.00 07/02/23 06:00 103 13 115/61 (70) 91 NIV Bilevel 50.00 07/02/23 05:00 71 14 115/67 (85) 99 High Flow N/C 8.00 07/02/23 04:00 74 22 112/68 (86) 99 High Flow N/C 8.00 07/02/23 04:00 36.4 07/02/23 04:00 95 High Flow N/C 8.00 07/02/23 03:00 74 14 111/65 (84) 98 High Flow N/C 8.00 07/02/23 02:00 79 35 91/49 (72) 92 High Flow N/C 8.00 07/02/23 01:21 97 Nasal Cannula 11.00 07/02/23 01:00 85 07/02/23 01:00 82 15 109/75 (85) 98 High Flow N/C 8.00 07/02/23 00:00 76 19 108/62 (78) 100 High Flow N/C 8.00 07/02/23 00:00 36.7 07/01/23 23:44 96 High Flow N/C 9.00 07/01/23 23:00 79 13 102/64 (74) 100 High Flow N/C 8.00 07/01/23 22:00 80 105/61 (77) 100 High Flow N/C 8.00 07/01/23 21:36 93 Nasal Cannula 12.00 07/01/23 21:00 84 17 107/65 (82) High Flow N/C 8.00 07/01/23 20:00 94 High Flow N/C 9.00 07/01/23 20:00 87 10 107/60 (84) High Flow N/C 8.00 07/01/23 19:20 74 07/01/23 19:00 111 8 103/54 (76) High Flow N/C 8.00 07/01/23 19:00 116 07/01/23 18:00 80 17 109/58 (75) 100 High Flow N/C 8.00 07/01/23 17:00 73 12 116/68 (84) 100 High Flow N/C 8.00 07/01/23 16:45 93 High Flow N/C 9.00 07/01/23 16:00 75 8 112/61 (78) 100 High Flow N/C 8.00 07/01/23 15:33 94 Nasal Cannula 12.00 07/01/23 15:00 72 11 121/62 (81) 95 High Flow N/C 8.00 07/01/23 14:00 74 20 99/57 (71) 95 High Flow N/C 8.00 07/01/23 13:00 72 14 96/55 (69) 93 High Flow N/C 8.00 07/01/23 12:16 76 07/01/23 12:03 92 High Flow N/C 9.00 07/01/23 12:00 74 19 93/57 (69) 94 High Flow N/C 8.00 07/01/23 11:37 36.1 07/01/23 11:16 75 18 97 55.00 07/01/23 11:00 75 16 106/59 (75) 90 High Flow N/C 8.00 I & O 07/02/23 06:59 Intake Total 940 ml Output Total 1300 ml Balance -360 ml Height & Weight Height: 5'3.00" Weight: 110lbs. 0.0oz. 49.568439we; 19.55 BMI Method:Stated General Appearance: No Apparent Distress, Chronically ill, Mild Distress, Thin, Other (resp distress when coughing, ) HEENT: PERRL/EOMI Neck: Full Range of Motion Respiratory: Decreased Breath Sounds, Rhonci; No Wheezing; Other (on 6lpm ) Cardiovascular: Regular Rate, Rhythm, No Murmur Capillary Refill: Less Than 3 Seconds Gastrointestinal: normal bowel sounds, non tender, soft, tenderness Extremity: Normal Inspection, No Pedal Edema Neurologic/Psychiatric: Alert, Oriented x3 Skin: Normal Color, Warm/Dry Lymphatic: No Adenopathy Results Lab Laboratory Tests 07/01/23 02:35 07/01/23 14:05 07/02/23 04:13 Assessment/Plan Assessment/Plan COPD, still needs to be watched closely, continue on IV flow, steroids, Covid, continue Decadron, Paxolvid, almost done Social svc looking for LTAC Critical Care: Critically Ill Patient Time spent with patient (mins): 25 GIANLUCA DE LA CRUZ MD Jul 02, 2023 10:19
--- NOTE | 2023-07-02 10:32 | Progress Note - Hospitalist ---
Subjective HPI/CC On Admission Date Seen by Provider: Jul 02, 2023 Pt is a 78yoCf with a PMH COPD, a fib who presented to the ER due to shortness of breath. She states she has not been doing well for the last few months with her COPD and will be short of breath off and on. This morning she woke up and it was much worse prompting her to come to the ER today. When she got here her heart was racing but she was noted to be in sinus tach. Shortly after that her heart rate shot up to the 140s and EKG showed a fib with RVR. She was mildly hypotensive as well. CXR was obtained which showed a right sided pneumothorax. She denies any falls or injuries recently. She denies any chest pain, She denies any nausea or vomiting, fever, leg swelling, or fever. Subjective/Events-last exam Pt reports doing better today. Breathing easier. No complaints. Called and updated her son as well. Discussed potential for LTACH with both of them and t ronak plan to talk about that together. Focused Exam Lactate Level 07/01/23 12:40: Lactic Acid Level 0.59 Objective Exam Vital Signs Vital Signs Date Time Temp Pulse Resp B/P (MAP) Pulse Ox O2 Delivery O2 Flow Rate FiO2 07/02/23 10:00 80 14 110/55 (73) 100 High Flow N/C 9.00 07/02/23 08:29 36.4 06/30/23 23:55 35 Capillary Refill : Less Than 3 Seconds General Appearance: No Apparent Distress Respiratory: Decreased Breath Sounds; No Wheezing; Other (on 8lpm HFNC) Cardiovascular: Regular Rate, Rhythm Neurologic/Psychiatric: Alert, Oriented x3 Results/Procedures Lab Laboratory Tests 07/01/23 14:05 07/02/23 04:13 Patient resulted labs reviewed. Imaging: Reviewed Imaging Films, Reviewed Imaging Report Assessment/Plan Assessment and Plan Assess & Plan/Chief Complaint Acute on chronic respiratory failure with hypoxia and hypercapnia Pneumothorax, resolved Pleural effusion COVID-19 PNA COPD Surgery following, Dr. Cat, chest tube removed TeleICU following Sputum culture with Pseudomonas Continue Merrem Paxlovid to complete today Steroids Continue on BiPAP prn Consider LTACH if unable to wean off BiPAP A fib with RVR- resolved Off pressors Eliquis Cardiology following Hypothyroidism Anxiety Allergies Continue home meds as able Critical Care Critically Ill Patient ELDER,JAYCOB M MD Jul 02, 2023 10:32
[2023-07-02] MEDS: ALPRAZolam 0.25 MG TABLET PO PRN (10:34)
[2023-07-02 10:38] VITALS: BP 110/55
--- NOTE | 2023-07-02 11:19 | Occ Therapy Progress Note ---
Therapy Progress Note OT will continue to hold, patient w/ low tolerance to activity, BI PAP d/t decreased 02 saturation and poor respiration rate, considerations to LTAC MILANA BARON OT Jul 02, 2023 11:19
[2023-07-02] MEDS: HYDROcodone/ACETAMINOPHEN 5 MG/325 MG TABLET PO PRN (13:45)
--- NOTE | 2023-07-02 15:15 | Physical Therapy Daily Note ---
PT Daily Note-Current Subjective Patient lying supine in bed upon PT arrival, agreeable to treatment. Reports no pain at this time but refuses out of bed treatment. Pain Section J - Health Conditions 1. Rarely or not at all 2. Occasionally 3. Frequently 4. Almost constantly 8. Unable to answer Pain Effect on Sleep: 3 Pain Interference with Therapy: 3 Pain Interference w/Day-to-Day: 3 Transfers SCALE: Activities may be completed with or without assistive devices. 8-Fkvwwzekhf-eqsangx completes the activity by him/herself with no assistance from a helper. 5-Set-up or Clean-up Assistance-helper sets up or cleans up; patient completes activity. [place] assists only prior to or following the activity. 4-Supervision or Touching Assistance-helper provides verbal cues and/or touching/steadying and/or contact guard assistance as patient completes activity. Assistance may be provided throughout the activity or intermittently. 3-Partial/Moderate Assistance-helper does LESS THAN HALF the effort. [place] lifts, holds or supports trunk or limbs, but provides less than half the effort. 2-Substantial/Maximal Assistance-helper does MORE THAN HALF the effort. [place] lifts or holds trunk or limbs and provides more than half the effort. 7-Vzltwnymo-aqwxrx does ALL the effort. Patient does none of the effort to complete the activity. Or, the assistance of 2 or more helpers is required for the patient to complete the activity. If activity was not attempted, code reason: 7-Patient Refused. 9-Not Applicable-not attempted and the patient did not perform the activity before the current illness, exacerbation or injury. 10-Not Attempted due to Environmental Limitations-(lack of equipment, weather restraints, etc.). 88-Not Attempted due to Medical Conditions or Safety Concerns. Weight Bearing Right Lower Extremity: Right Full Weight Bearing Left Lower Extremity: Left Full Weight Bearing Exercises Supine Ex: Ankle pumps, Quad Set, Glut sets, Heel Slides, Short Arc Quads, Straight leg raise, Hip abd/add Supine Reps: 20 Assessment Current Status: Poor Progress Patient refused out of treatment but agreeable to ther ex. Patient performs the above listed ther ex. Patient in bed post treatment with all needs met, nursing notified, call light in reach. PT Joint Filler Goals Joint Filler Goals PT Joint Filler Goals Time Frame: Jul 12, 2023 Roll Left & Right (QC): 6 Sit to Lying (QC): 6 Lying-Sitting on Side/Bed(QC): 6 Sit to Stand (QC): 4 Chair/Nqe-zt-Repjw Xfer(QC): 4 Toilet Transfer (QC): 4 Walk 10 feet (QC): 4 Walk 50ft with 2 Turns (QC): 4 PT Plan Treatment/Plan Treatment Plan: Continue Plan of Care Treatment Plan: Bed Mobility, Education, Functional Activity [place], Functional Strength, Gait, Safety, Therapeutic Exercise, Transfers Treatment Duration: Jul 12, 2023 Frequency: 6 times per week Estimated Hrs Per Day: .25 hour per day Patient and/or Family Agrees t: Yes Time Time In: 1455 Time Out: 1510 DATE: Jul 02, 2023 Total Billed Treatment Time: 15 Total Billed Treatment Visit, EX MERVAT SAVAGE PT Jul 02, 2023 15:15
[2023-07-02] MEDS: NOREPINEPHRINE 8 MG/250 ML 250 ML IV SCH (23:00)
[2023-07-02 23:13] VITALS: BP 137/87
[2023-07-03] MEDS: RT-ALBUTEROL HFA 8.5 GM INHALER IH SCH ×6 (03:13→21:43)
[2023-07-03] MEDS: THYROID (ARMOUR) 60 MG TABLET PO SCH (05:27)
[2023-07-03] MEDS: HYDROcodone/ACETAMINOPHEN 5 MG/325 MG TABLET PO PRN (05:28)
[2023-07-03] MEDS: [UNRECOGNIZED DRUG - OTHER] IV SCH (06:00)
[2023-07-03] MEDS: POTASSIUM CL 10MEQ/50ML IVPB 50 ML IV SCH (06:00)
[2023-07-03] MEDS: MAGNESIUM 1 GM/100 ML IVPB 100 ML IV SCH (06:00)
[2023-07-03] MEDS: POTASSIUM CHLORIDE 20 MEQ TABLET PO SCH (06:00)
[2023-07-03 06:14] LABS: BASOPHILS % (AUTO) 0 % (0-10); EOSINOPHILS % (AUTO) 0 % (0-10); HEMATOCRIT 24 % (35-52); HEMOGLOBIN 7.6 g/dL (11.5-16.0); LYMPHOCYTES # (AUTO) 0.6 10^3/uL (1.0-4.0); LYMPHOCYTES % (AUTO) 7 % (12-44); MEAN CORPUSCULAR HEMOGLOBIN 30 pg (25-34); MEAN CORPUSCULAR HGB CONC 32 g/dL (32-36); MEAN CORPUSCULAR VOLUME 93 fL (80-99); MONOCYTES # (AUTO) 0.4 10^3/uL (0.0-1.0); MONOCYTES % (AUTO) 5 % (0-12); NEUTROPHILS # (AUTO) 7.4 10^3/uL (1.8-7.8); NEUTROPHILS % (AUTO) 87 % (42-75); PLATELET COUNT 286 10^3/uL (130-400); WHITE BLOOD COUNT 8.5 10^3/uL (4.3-11.0)
[2023-07-03 06:24] LABS: ALBUMIN 3.7 GM/DL (3.2-4.5); POTASSIUM 4.4 MMOL/L (3.6-5.0)
[2023-07-03 06:27] LABS: TOTAL PROTEIN 5.9 GM/DL (6.4-8.2)
[2023-07-03 06:29] LABS: BILIRUBIN,TOTAL 0.2 MG/DL (0.1-1.0)
[2023-07-03 06:30] LABS: CREATININE SERUM 0.74 MG/DL (0.60-1.30)
[2023-07-03 06:33] LABS: MAGNESIUM 2.1 MG/DL (1.6-2.4)
[2023-07-03] MEDS: NICOTINE 7 MG PATCH TD SCH (08:33)
[2023-07-03] MEDS: NICOTINE PATCH REMOVAL TP SCH (08:33)
[2023-07-03] MEDS: dexAMETHasone INJ 10 MG/ML 1 ML VIAL IV SCH (08:34)
[2023-07-03] MEDS: FAMOTIDINE 20 MG TABLET PO SCH (08:34)
[2023-07-03] MEDS: guaiFENesin 600 MG TABLET PO SCH ×2 (08:34→20:46)
[2023-07-03] MEDS: APIXABAN 2.5 MG TABLET PO SCH ×2 (08:34→20:46)
[2023-07-03] MEDS: LORATADINE 10 MG TABLET PO SCH (08:34)
--- NOTE | 2023-07-03 11:10 | Occ Therapy Progress Note ---
Therapy Progress Note OT continues to hold per RN. MILANA BARON OT Jul 03, 2023 11:09
--- NOTE | 2023-07-03 11:12 | Physical Therapy Progress Note ---
Therapy Progress Note Patient on Hold per RN due to increase in confusion and patient is refusing all interventions per RN report. Will attempt tomorrow. JOHNSON FELIZ PT Jul 03, 2023 11:12
[2023-07-03] MEDS: ALPRAZolam 0.25 MG TABLET PO PRN ×2 (11:23→20:46)
--- NOTE | 2023-07-03 11:51 | Tele-ICU Progress Note ---
Subjective Date Seen by a Provider: Jul 03, 2023 Time Seen by a Provider: 11:51 Subjective/Events-last exam (Tele-ICU Physician , Progress Note ) Service provided via interactive audio and video telecommunications E-CARE system to a patient admitted to ICU bed in [facility]. Patient is seen today due to persistent need of ICU care Available chart/ vitals / labs / Images reviewed Video assessment done using teleICU camera, rest of exam as per RN Discussed with RN Events overnight : abd pain , received fentanyl Afebrile hemodynamically stable Respiratory - I/O =+ Drips: ns 35 - Off NOW Pressors- no Hospital course: (06/20) 78y/o F admitted with AFib/RVR & Lg R pneumothorax. > t Thora-Vent chest tube.. Patient on Eliquis. 06/22- 9 L o2 , converted to sinus , RIGHT lung opacification , mostl likely mucous plug - mucomist added 06/23- cxr same , 3 lNC , no output in chest tube , CT CHEST 06/25 - CHEST TUBE IN PLACE _ 20 cm SUCCTIONS , 20 ML output , CXR 06/27 - COVID + , abd pain , AFIB RVR_ cardizem gtt , chest tube removed 06/28- hypotensive , IVF fluid 1 L 06/29- back to afib RVR intermittent, BIPAP 06/30 - LEVO , Bipap off , PICC right - MERREM , Afib on and off, Chest tube removed 07/03- Bipap night 50% , 8 L NC day , OFF levo A/P Acute resp failure - was on bipap last night on/off, on 8 L this am - had a panic attack - back on Bipap and given xanax Confusion- imtermittent as per RN - will check lactulose Shock 06/30 - Mixed septic/hypovolemic shock: MAPs improved. 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 calculous cholecystitis. do not recommend surgery" pain RESOLVED , but LFT elevated 07/03- ? 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 " CKD - improved , off IVF UTI with PSA - was tx 8 days of zosyn SOLOMON, -DX 2021 ( AHI 15 ) - during titration study went to CSA AHI 25 --> ASV EPAP min 4, MAx 20 , PS min ) , max 25 , rate auto - all SOLOMON /CSA resolved - hold while has PTX Nutritions - poor appetite , PO intake Lines : PICC RIGHT 06/30 , (Central Line Necessity Reviewed) Sotomayor: removed 06/26 - PLACED BACK 06/27 with retention OG: Nutrition: po Analgesia: Anxiety/ delirium VTE Prophylaxis: CHEMICAL ENGINEERING PROFESSOR eliquis - resumed Stress Ulcer Prophylaxis: Plans in collaboration with bedside consultants and IM MDs. Discussed with RN to reach out if any questions or concerns A total of 20 minutes of critical care time was devoted to this patient today, required to treat and/or prevent further deterioration of critical care condition ( as above ) . I am remotely monitoring this patient from another state. I am unable to do the bedside exam, and history/physical and pertinent information is taken from other notes in the computer and bedside staff. . Sepsis Event Evaluation Height, Weight, BMI Height: 5'3.00" Weight: 110lbs. 0.0oz. 49.303051ys; 19.02 BMI Method:Stated Focused Exam Lactate Level 07/01/23 12:40: Lactic Acid Level 0.59 Exam Exam Patient acknowledged, consented, and participated in this virtual visit which was conducted using real time audio/video Vital Signs Date Time Temp Pulse Resp B/P (MAP) Pulse Ox O2 Delivery O2 Flow Rate FiO2 07/03/23 10:00 78 14 131/66 (87) 90 High Flow N/C 8.00 07/03/23 09:00 81 11 127/67 (87) 100 High Flow N/C 8.00 07/03/23 08:00 73 11 130/77 (94) 100 High Flow N/C 8.00 07/03/23 08:00 99 High Flow N/C 8.00 07/03/23 07:05 97 Nasal Cannula 8.50 07/03/23 07:00 68 14 149/77 (101) 100 High Flow N/C 8.00 07/03/23 06:00 68 16 139/75 (96) 100 NIV Bilevel 50.00 07/03/23 05:00 98 25 99 NIV Bilevel 50.00 07/03/23 04:00 59 27 139/79 (99) 98 NIV Bilevel 50.00 07/03/23 04:00 96 High Flow N/C 8.00 07/03/23 03:00 65 19 130/74 (92) 92 NIV Bilevel 50.00 07/03/23 02:00 69 22 127/78 (94) 100 NIV Bilevel 50.00 07/03/23 01:00 75 22 129/73 (91) 96 NIV Bilevel 50.00 07/03/23 01:00 80 07/03/23 00:00 87 20 122/67 (85) 99 NIV Bilevel 50.00 07/02/23 23:26 99 NIV Bilevel 50 07/02/23 23:13 76 20 98 50.00 07/02/23 23:05 NIV Bilevel 50.00 07/02/23 23:00 77 20 137/87 (104) 97 High Flow N/C 9.00 07/02/23 22:00 78 12 134/75 (94) High Flow N/C 9.00 07/02/23 21:00 85 19 128/68 (88) 90 High Flow N/C 9.00 07/02/23 20:34 36.3 07/02/23 20:27 96 High Flow N/C 8.00 07/02/23 20:00 93 18 147/72 (97) 90 High Flow N/C 9.00 07/02/23 19:00 90 07/02/23 19:00 81 15 104/86 (92) 96 High Flow N/C 9.00 07/02/23 18:54 100 Nasal Cannula 8.50 07/02/23 18:00 89 21 High Flow N/C 9.00 07/02/23 17:00 86 14 97 High Flow N/C 9.00 07/02/23 16:55 96 High Flow N/C 8.00 07/02/23 16:13 36.2 07/02/23 16:00 86 8 118/64 (82) 97 High Flow N/C 9.00 07/02/23 15:00 85 14 107/60 (76) 98 High Flow N/C 9.00 07/02/23 14:45 100 Nasal Cannula 9.00 07/02/23 14:00 80 17 110/64 (79) 99 High Flow N/C 9.00 07/02/23 13:00 84 22 102/78 (86) 100 High Flow N/C 9.00 07/02/23 12:16 94 High Flow N/C 8.00 07/02/23 12:09 84 07/02/23 12:00 88 18 104/60 (75) 98 High Flow N/C 9.00 I & O 07/03/23 07:00 Intake Total 1590 ml Output Total 1950 ml Balance -360 ml Height & Weight Height: 5'3.00" Weight: 110lbs. 0.0oz. 49.174561ww; 19.02 BMI Method:Stated General Appearance: No Apparent Distress, Chronically ill, Mild Distress, Thin, Other (resp distress when coughing, ) HEENT: PERRL/EOMI Neck: Full Range of Motion Respiratory: Decreased Breath Sounds, Rhonci; No Wheezing; Other (on 6lpm ) Cardiovascular: Regular Rate, Rhythm, No Murmur Capillary Refill: Less Than 3 Seconds Gastrointestinal: normal bowel sounds, non tender, soft, tenderness Extremity: Normal Inspection, No Pedal Edema Neurologic/Psychiatric: Alert, Oriented x3 Skin: Normal Color, Warm/Dry Lymphatic: No Adenopathy Results Lab Laboratory Tests 07/01/23 14:05 07/02/23 04:13 07/03/23 05:57 Assessment/Plan Assessment/Plan 1 ARLEEN GIL MD Jul 03, 2023 11:51
--- NOTE | 2023-07-03 12:05 | Progress Note - Hospitalist ---
Subjective HPI/CC On Admission Date Seen by Provider: Jul 03, 2023 Pt is a 78yoCf with a PMH COPD, a fib who presented to the ER due to shortness of breath. She states she has not been doing well for the last few months with her COPD and will be short of breath off and on. This morning she woke up and it was much worse prompting her to come to the ER today. When she got here her heart was racing but she was noted to be in sinus tach. Shortly after that her heart rate shot up to the 140s and EKG showed a fib with RVR. She was mildly hypotensive as well. CXR was obtained which showed a right sided pneumothorax. She denies any falls or injuries recently. She denies any chest pain, She denies any nausea or vomiting, fever, leg swelling, or fever. Subjective/Events-last exam Pt reports doing ok but is cold. No complaints. On BiPAP again over night. Discussed possible transfer to LTACH and she just shrugged her shoulders and w ent back to sleep. Focused Exam Lactate Level 07/01/23 12:40: Lactic Acid Level 0.59 Objective Exam Vital Signs Vital Signs Date Time Temp Pulse Resp B/P (MAP) Pulse Ox O2 Delivery O2 Flow Rate FiO2 07/03/23 10:00 78 14 131/66 (87) 90 High Flow N/C 8.00 07/02/23 23:26 50 07/02/23 20:34 36.3 Capillary Refill : Less Than 3 Seconds General Appearance: No Apparent Distress, Chronically ill Respiratory: Lungs Clear, No Respiratory Distress Cardiovascular: Regular Rate, Rhythm, No Murmur Results/Procedures Lab Laboratory Tests 07/03/23 05:57 Patient resulted labs reviewed. Imaging: Reviewed Imaging Films, Reviewed Imaging Report Assessment/Plan Assessment and Plan Assess & Plan/Chief Complaint Acute on chronic respiratory failure with hypoxia and hypercapnia Pneumothorax, resolved Pleural effusion COVID-19 PNA COPD Surgery following, Dr. Cat, chest tube removed TeleICU following Sputum culture with Pseudomonas Continue Merrem Paxlovid course done Steroids Continue on BiPAP prn Consider LTACH if unable to wean off BiPAP A fib with RVR- resolved Off pressors Eliquis Cardiology following Hypothyroidism Anxiety Allergies Continue home meds as able Critical Care Critically Ill Patient JAYCOB FRIEDMAN MD Jul 03, 2023 12:05
[2023-07-03 15:26] LABS: ABG OXYGEN SATURATION 85 % (94-100); ABG PCO2 33 MMHG (35-45); ABG PH 7.54 (7.37-7.43); ABG PO2 44 MMHG (79-93)
[2023-07-03 15:27] LABS: INSPIRED O2 8; PATIENT TEMP 36.4; VENTILATOR NO
[2023-07-03] MEDS: fentaNYL INJECTION 100 MCG/2 ML VIAL IVP PRN ×2 (15:47→21:47)
[2023-07-03] MEDS: ONDANSETRON INJECTION 4 MG/2 ML (SDV) IV PRN (15:48)
[2023-07-04] MEDS: RT-ALBUTEROL HFA 8.5 GM INHALER IH SCH ×4 (03:03→15:18)
[2023-07-04] MEDS: [UNRECOGNIZED DRUG - OTHER] IV SCH (03:12)
[2023-07-04] MEDS ORDERED: morphine INJ 10 MG/ML 1ML (SYR OR VIAL) IVP STA (05:04)
[2023-07-04] MEDS ORDERED: morphine INJ 10 MG/ML 1ML (SYR OR VIAL) ONE (05:21)
[2023-07-04 05:49] LABS: BASOPHILS % (AUTO) 0 % (0-10); EOSINOPHILS % (AUTO) 0 % (0-10); HEMATOCRIT 23 % (35-52); HEMOGLOBIN 7.2 g/dL (11.5-16.0); LYMPHOCYTES # (AUTO) 1.1 10^3/uL (1.0-4.0); LYMPHOCYTES % (AUTO) 14 % (12-44); MEAN CORPUSCULAR HEMOGLOBIN 29 pg (25-34); MEAN CORPUSCULAR HGB CONC 32 g/dL (32-36); MEAN CORPUSCULAR VOLUME 91 fL (80-99); MEAN PLATELET VOLUME 9.1 fL (9.0-12.2); MONOCYTES # (AUTO) 0.6 10^3/uL (0.0-1.0); MONOCYTES % (AUTO) 8 % (0-12); NEUTROPHILS % (AUTO) 78 % (42-75); PLATELET COUNT 288 10^3/uL (130-400); WHITE BLOOD COUNT 7.7 10^3/uL (4.3-11.0)
[2023-07-04 06:02] LABS: ALBUMIN 3.5 GM/DL (3.2-4.5); POTASSIUM 4.3 MMOL/L (3.6-5.0)
[2023-07-04 06:04] LABS: CALCIUM 8.8 MG/DL (8.5-10.1)
[2023-07-04 06:05] LABS: TOTAL PROTEIN 5.7 GM/DL (6.4-8.2)
[2023-07-04 06:07] LABS: BILIRUBIN,TOTAL 0.2 MG/DL (0.1-1.0)
[2023-07-04 06:08] LABS: PHOSPHORUS 2.2 MG/DL (2.3-4.7)
--- NOTE | 2023-07-04 06:08 | Diagnostic Imaging Report ---
INDICATION: Hypoxemia, chest pain Portable chest 5:38 AM Right upper extremity PICC line tip projects over the SVC. There are small bilateral pleural effusions with minimal volume loss at the lung bases. There is no appreciable pneumothorax. IMPRESSION: Basilar atelectasis and effusions unchanged compared to 07/01/2023. Dictated by: Dictated on workstation # [id number]
[2023-07-04 06:09] LABS: CREATININE SERUM 0.8 MG/DL (0.60-1.30)
[2023-07-04 06:12] LABS: MAGNESIUM 2.1 MG/DL (1.6-2.4)
[2023-07-04] MEDS: POTASSIUM CHLORIDE 20 MEQ TABLET PO SCH (06:24)
[2023-07-04] MEDS: MAGNESIUM 1 GM/100 ML IVPB 100 ML IV SCH (06:24)
[2023-07-04] MEDS: POTASSIUM CL 10MEQ/50ML IVPB 50 ML IV SCH (06:24)
[2023-07-04] MEDS: THYROID (ARMOUR) 60 MG TABLET PO SCH (06:49)
[2023-07-04] MEDS: guaiFENesin 600 MG TABLET PO SCH (09:13)
[2023-07-04] MEDS: NICOTINE 7 MG PATCH TD SCH (09:13)
[2023-07-04] MEDS: FAMOTIDINE 20 MG TABLET PO SCH (09:13)
[2023-07-04] MEDS: APIXABAN 2.5 MG TABLET PO SCH (09:13)
[2023-07-04] MEDS: dexAMETHasone INJ 10 MG/ML 1 ML VIAL IV SCH (09:14)
[2023-07-04] MEDS: NICOTINE PATCH REMOVAL TP SCH (09:14)
[2023-07-04] MEDS: LORATADINE 10 MG TABLET PO SCH (09:14)
--- NOTE | 2023-07-04 10:11 | Diagnostic Imaging Report ---
PROCEDURE: CT chest without contrast. TECHNIQUE: Multiple contiguous axial images were obtained through the chest without the use of intravenous contrast. Auto Exposure Controls were utilized during the CT exam to meet ALARA standards for radiation dose reduction. INDICATION: Pleural effusions There are bilateral pleural effusions. This appears to be slightly larger on the right than on the left. On the right it layers out to a depth of 13 mm and on the left to a depth of 14 mm. There is atelectasis in the dependent portions of both lungs. There are some patchy alveolar infiltrates in the left upper lobe. There is a pleural-based nodular opacity at the lateral aspect of the major fissure in the left midlung. The pleural effusion does not appear to be loculated. IMPRESSION: Moderate-sized bilateral pleural effusions with associated dependent atelectasis in both lungs. There are some patchy alveolar infiltrates in the left upper lobe suspicious for pneumonia. Dictated by: Dictated on workstation # [id number]
--- NOTE | 2023-07-04 11:47 | Physical Therapy Progress Note ---
Therapy Progress Note Patient adamantly declined PT on this date due to difficulty breathing and very tearful. PT to decrease frequency to 5/wk due to patient's noncompliance with therapy. JOHNSON FELIZ PT Jul 04, 2023 11:46
--- NOTE | 2023-07-04 11:48 | Tele-ICU Progress Note ---
Subjective Date Seen by a Provider: Jul 04, 2023 Time Seen by a Provider: 11:48 Subjective/Events-last exam (Tele-ICU Physician , Progress Note ) Service provided via interactive audio and video telecommunications E-CARE system to a patient admitted to ICU bed in [facility]. Patient is seen today due to persistent need of ICU care Available chart/ vitals / labs / Images reviewed Video assessment done using teleICU camera, rest of exam as per RN Discussed with RN Events overnight : abd pain , received fentanyl Afebrile hemodynamically stable Respiratory - I/O =+ Drips: ns 35 - Off NOW Pressors- no Hospital course: (06/20) 78y/o F admitted with AFib/RVR & Lg R pneumothorax. > t Thora-Vent chest tube.. Patient on Eliquis. 06/22- 9 L o2 , converted to sinus , RIGHT lung opacification , mostl likely mucous plug - mucomist added 06/23- cxr same , 3 lNC , no output in chest tube , CT CHEST 06/25 - CHEST TUBE IN PLACE _ 20 cm SUCCTIONS , 20 ML output , CXR 06/27 - COVID + , abd pain , AFIB RVR_ cardizem gtt , chest tube removed 06/28- hypotensive , IVF fluid 1 L 06/29- back to afib RVR intermittent, BIPAP 06/30 - LEVO , Bipap off , PICC right - MERREM , Afib on and off, Chest tube removed 07/03- Bipap night 50% , 8 L NC day , OFF levo , CONFUSED 07/04- off bipap , 6 L NC , CT chest - effusions A/P Acute resp failure - was on bipap last night on/off, on 8 L this am - had a panic attack - back on Bipap and given xanax - CT chest done 07/04- effiusions, small PNA ( as expected ) Confusion- imtermittent as per RN - nl ammonia and CO2 - better today Shock 06/30 - Mixed septic/hypovolemic shock: MAPs improved. 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 calculous cholecystitis. do not recommend surgery" pain RESOLVED , but LFT elevated 07/03- ? 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 Discussed with RN to reach out if any questions or concerns A total of 20 minutes of critical care time was devoted to this patient today, required to treat and/or prevent further deterioration of critical care condition ( as above ) . I am remotely monitoring this patient from another state. I am unable to do the bedside exam, and history/physical and pertinent information is taken from other notes in the computer and bedside staff. . Sepsis Event Evaluation Height, Weight, BMI Height: 5'3.00" Weight: 110lbs. 0.0oz. 49.275674tn; 19.06 BMI Method:Stated Focused Exam Lactate Level 07/01/23 12:40: Lactic Acid Level 0.59 Exam Exam Patient acknowledged, consented, and participated in this virtual visit which wa s conducted using real time audio/video Vital Signs Date Time Temp Pulse Resp B/P (MAP) Pulse Ox O2 Delivery O2 Flow Rate FiO2 07/04/23 11:22 37.1 07/04/23 11:00 90 10 125/75 (86) 98 High Flow N/C 6.00 07/04/23 10:00 81 15 135/84 (103) 100 High Flow N/C 6.00 07/04/23 09:00 80 16 96 High Flow N/C 6.00 07/04/23 08:35 90 High Flow N/C 8.00 07/04/23 08:00 101 12 128/83 (93) 100 High Flow N/C 6.00 07/04/23 08:00 36.3 07/04/23 07:07 96 High Flow N/C 6.00 07/04/23 07:00 98 07/04/23 07:00 124 8 110/78 (89) 94 High Flow N/C 6.00 07/04/23 06:57 99 High Flow N/C 8.00 07/04/23 06:00 83 137/86 (103) 100 NIV Bilevel 50.00 07/04/23 05:00 84 125/70 (88) 91 NIV Bilevel 50.00 07/04/23 04:00 84 130/77 (94) 92 NIV Bilevel 50.00 07/04/23 04:00 90 High Flow N/C 8.00 07/04/23 03:07 NIV Bilevel 50.00 07/04/23 03:05 89 Nasal Cannula 8.50 07/04/23 03:03 101 24 99 07/04/23 03:00 80 142/84 (103) 100 High Flow N/C 8.00 07/04/23 02:00 77 110/73 (85) 93 High Flow N/C 8.00 07/04/23 01:00 73 131/78 (95) 100 High Flow N/C 8.00 07/04/23 01:00 80 07/04/23 00:00 36.0 07/04/23 00:00 75 124/70 (88) 100 High Flow N/C 8.00 07/03/23 23:17 100 High Flow N/C 8.00 07/03/23 23:00 87 118/67 (84) 91 High Flow N/C 8.00 07/03/23 22:00 83 129/77 (94) 100 High Flow N/C 8.00 07/03/23 21:44 97 Nasal Cannula 8.50 07/03/23 21:00 80 127/65 (85) 100 High Flow N/C 8.00 07/03/23 20:00 100 High Flow N/C 8.00 07/03/23 20:00 90 123/71 (88) 100 High Flow N/C 8.00 07/03/23 19:00 149 112/80 (91) 97 High Flow N/C 8.00 07/03/23 19:00 146 07/03/23 18:47 96 Nasal Cannula 8.50 07/03/23 18:00 89 150/89 (109) 96 07/03/23 17:00 71 43 79/70 (73) 93 07/03/23 16:00 137 124/87 (105) 96 07/03/23 16:00 36.4 07/03/23 15:26 94 High Flow N/C 8.00 07/03/23 15:00 85 131/62 (84) 92 07/03/23 14:44 92 Nasal Cannula 8.50 07/03/23 14:00 97 122/62 (84) 85 07/03/23 13:00 70 22 119/70 (93) 98 07/03/23 13:00 72 07/03/23 12:00 98 High Flow N/C 8.00 07/03/23 12:00 133/73 (92) High Flow N/C 8.00 I & O 07/04/23 07:00 Intake Total 600 ml Output Total 1925 ml Balance -1325 ml Height & Weight Height: 5'3.00" Weight: 110lbs. 0.0oz. 49.311269kk; 19.06 BMI Method:Stated General Appearance: No Apparent Distress, Chronically ill HEENT: PERRL/EOMI Neck: Full Range of Motion Respiratory: Lungs Clear, No Respiratory Distress Cardiovascular: Regular Rate, Rhythm, No Murmur Capillary Refill: Less Than 3 Seconds Gastrointestinal: normal bowel sounds, non tender, soft, tenderness Extremity: Normal Inspection, No Pedal Edema Neurologic/Psychiatric: Alert, Oriented x3 Skin: Normal Color, Warm/Dry Lymphatic: No Adenopathy Results Lab Laboratory Tests 07/03/23 05:57 07/04/23 05:30 Assessment/Plan Assessment/Plan 1 ARLEEN GIL MD Jul 04, 2023 11:48
[2023-07-04] MEDS: ALPRAZolam 0.25 MG TABLET PO PRN (12:17)
--- NOTE | 2023-07-04 13:28 | Progress Note - Hospitalist ---
Subjective HPI/CC On Admission Date Seen by Provider: Jul 04, 2023 Pt is a 78yoCf with a PMH COPD, a fib who presented to the ER due to shortness of breath. She states she has not been doing well for the last few months with her COPD and will be short of breath off and on. This morning she woke up and it was much worse prompting her to come to the ER today. When she got here her heart was racing but she was noted to be in sinus tach. Shortly after that her heart rate shot up to the 140s and EKG showed a fib with RVR. She was mildly hypotensive as well. CXR was obtained which showed a right sided pneumothorax. She denies any falls or injuries recently. She denies any chest pain, She denies any nausea or vomiting, fever, leg swelling, or fever. Subjective/Events-last exam Pt reports doing better today. Much more alert. Hungry and would like a cup of decaf cough. No other complaints. Planning to talk to LTACH today about tr carolyn. Objective Exam Vital Signs Vital Signs Date Time Temp Pulse Resp B/P (MAP) Pulse Ox O2 Delivery O2 Flow Rate FiO2 07/04/23 13:00 82 07/04/23 13:00 12 130/73 (87) 100 High Flow N/C 6.00 07/04/23 11:22 37.1 07/02/23 23:26 50 Capillary Refill : Less Than 3 Seconds General Appearance: No Apparent Distress, Chronically ill, Thin Respiratory: Decreased Breath Sounds, Other (on HFNC) Cardiovascular: Regular Rate, Rhythm Gastrointestinal: Normal Bowel Sounds, Soft Neurologic/Psychiatric: Alert, Oriented x3 Results/Procedures Lab Laboratory Tests 07/04/23 05:30 Patient resulted labs reviewed. Imaging: Reviewed Imaging Films, Reviewed Imaging Report Assessment/Plan Assessment and Plan Assess & Plan/Chief Complaint Acute on chronic respiratory failure with hypoxia and hypercapnia Pneumothorax, resolved Pleural effusion COVID-19 PNA COPD Surgery following, Dr. Cat, chest tube removed TeleICU following Sputum culture with Pseudomonas Continue Merrem Paxlovid course completed Steroids Continue on BiPAP prn Consider LTACH if patient amenable A fib with RVR- resolved Off pressors Eliquis Cardiology following Hypothyroidism Anxiety Allergies Continue home meds as able Critical Care Critically Ill Patient JAYCOB FRIEDMAN MD Jul 04, 2023 13:28
--- NOTE | 2023-07-04 16:22 | Discharge Summary ---
Diagnosis/Chief Complaint Date of Admission Jun 20, 2023 at 16:25 Date of Discharge Discharge Date: Jul 04, 2023 Admission Diagnosis Acute on Chronic Hypoxic Respiratory failure Primary Care Lyndsey He Discharge Diagnosis (1) COVID-19 Status: Acute (2) Abdominal pain Status: Acute (3) Urinary retention Status: Resolved (4) Acute and chronic respiratory failure with hypoxia Status: Acute (5) Pneumothorax on right Status: Resolved (6) Pleural effusion Status: Acute (7) COPD exacerbation Status: Acute (8) Atrial fibrillation with RVR Status: Acute (9) Pneumonia Status: Acute (10) Acute and chronic respiratory failure with hypercapnia Status: Acute Discharge Summary Discharge Physical Exam Allergies: Coded Allergies: nitrofurantoin (Verified Allergy, Severe, RASH, 12/10/15) ITCHING AND RASH sulfamethoxazole (Verified Allergy, Severe, RASH, 12/10/15) ITCHING AND RASH trimethoprim (Verified Allergy, Severe, RASH, 12/10/15) ITCHING AND RASH azithromycin (Verified Allergy, Unknown, 08/14/14) cefixime (Verified Allergy, Unknown, 08/14/14) Vitals & I&Os Vital Signs Date Time Temp Pulse Resp B/P (MAP) Pulse Ox O2 Delivery O2 Flow Rate FiO2 07/04/23 16:00 92 19 130/66 (85) 98 High Flow N/C 6.00 07/04/23 15:41 36.5 07/02/23 23:26 50 Hospital Course Labs (last 24 hrs) Laboratory Tests 07/03/23 21:45: Glucometer 124H 07/04/23 05:30: White Blood Count 7.7, Red Blood Count 2.50L, Hemoglobin 7.2L, Hematocrit 23L, Mean Corpuscular Volume 91, Mean Corpuscular Hemoglobin 29, Mean Corpuscular Hemoglobin Concent 32, Red Cell Distribution Width 15.4H, Platelet Count 288, Mean Platelet Volume 9.1, Immature Granulocyte % (Auto) 1, Neutrophils (%) (Auto) 78H, Lymphocytes (%) (Auto) 14, Monocytes (%) (Auto) 8, Eosinophils (%) (Auto) 0, Basophils (%) (Auto) 0, Neutrophils # (Auto) 6.0, Lymphocytes # (Auto) 1.1, Monocytes # (Auto) 0.6, Eosinophils # (Auto) 0.0, Basophils # (Auto) 0.0, Immature Granulocyte # (Auto) 0.1, Sodium Level 140, Potassium Level 4.3, Chloride Level 104, Carbon Dioxide Level 25, Anion Gap 11, Blood Urea Nitrogen 21H, Creatinine 0.80, Estimat Glomerular Filtration Rate 76, BUN/Creatinine Ratio 26, Glucose Level 96, Calcium Level 8.8, Corrected Calcium 9.2, Phosphorus Level 2.2L, Magnesium Level 2.1, Total Bilirubin 0.2, Aspartate Amino Transf (AST/SGOT) 148H, Alanine Aminotransferase (ALT/SGPT) 162H, Alkaline Phosphatase 39L, Total Protein 5.7L, Albumin 3.5 07/04/23 11:18: Glucometer 123H 07/04/23 15:24: Glucometer 189H Microbiology 06/30/23 Blood Culture - Preliminary, Resulted 06/29/23 Urine Culture - Final, Complete NO GROWTH 06/20/23 MRSA Screen - Final, Complete MRSA not isolated Patient resulted labs reviewed. Pending Labs Laboratory Tests 07/04/23 11:18: Glucometer 123 07/04/23 15:24: Glucometer 189 Imaging: Reviewed Imaging Films, Reviewed Imaging Report Discharge Home Medications: Active Scripts Active Reported Alprazolam 0.5 Mg Tablet 0.25 Mg PO DAILY PRN TAKES OF A 0.5MG TAB Cetirizine HCl 10 Mg Tablet 10 Mg PO DAILY Probiotic (L.acidoph & Paracasei,B.lactis) 10 Billion Cell Capsule 1 Each PO DAILY Nystatin 100,000 Unit/Ml Oral.susp 5 Ml MT QID PRN SWISH AND SPIT Propranolol HCl 40 Mg Tablet 40 Mg PO DAILY K-Tab ER (Potassium Chloride) 10 Meq Tablet.er 20 Meq PO DAILY TAKES 2 (10MEQ) TABS Furosemide 40 Mg Tablet 40 Mg PO DAILY Hydrocodone-Acetamin 7.5-325 (Hydrocodone/Acetaminophen) 7.5 Mg-325 Mg Tablet 1 Ea PO TID PRN Breztri Aerosphere Inhaler (Budesonide/Glycopyr/Formoterol) 160 Mcg-9 Mcg-4.8 Mcg/Actuation Hfa.aer.ad 2 Puff INH BID Fluticasone Propionate 50 Mcg/Actuation [place].susp 1 [place] NSEACH BID Famotidine 20 Mg Tablet 20 Mg PO BID Benzonatate 200 Mg Capsule 200 Mg PO BID Albuterol Sulfate 2.5 Mg/3 Ml (0.083 %) Vial.neb 2.5 Mg NEB QID PRN Alprazolam 0.5 Mg Tablet 0.25 Mg PO HS TAKES OF A 0.5MG Vitamin D2 (Ergocalciferol (Vitamin D2)) 1,250 Mcg (32905 Unit) Capsule 1,250 Mcg PO SUN Eliquis (Apixaban) 5 Mg Tablet 5 Mg PO BID Midodrine HCl 2.5 Mg Tablet 2.5 Mg PO BID [place] Thyroid (Thyroid,Pork) 60 Mg Tablet 60 Mg PO DAILY Citalopram HBr (Citalopram Hydrobromide) 20 Mg Tablet 20 Mg PO DAILY Ventolin Hfa (Albuterol Sulfate) 90 Mcg Hfa.aer.ad 2 Puff IH QID PRN Vitamin D3 (Cholecalciferol (Vitamin D3)) 50 Mcg Capsule 50 Mcg PO DAILY Calcium (Calcium Carbonate) 600 Mg Tablet 600 Mg PO DAILY Instructions to patient/family Please see electronic discharge instructions given to patient. Problem Qualifiers (1) Abdominal pain: Abdominal location: generalized Qualified Codes: R10.84 - Generalized abdominal pain JAYCOB FRIEDMAN MD Jul 04, 2023 16:22
[2023-07-06] MEDS ORDERED: APIXABAN 5 MG TABLET PO SCH (09:00)
== END 2023-07-04 16:40 | DRG 199 ==
LOC: EDUNIT# 13:50 → ER 13:51 → ICU 16:25
PROVIDERS: ADMIT Family Medicine; ATTEND Family Medicine
PROC: 0W9930Z Drainage of Right Pleural Cavity with Drainage Device, Percutaneous Approach (ICD-10-PCS; principal; 2023-06-21)
PROC: 5A0945A Assistance with Respiratory Ventilation, 24-96 Consecutive Hours, High Flow/Velocity Cannula (ICD-10-PCS; 2023-06-21)
PROC: 8E0ZXY6 Isolation (ICD-10-PCS; 2023-06-27)
PROC: 5A09357 Assistance with Respiratory Ventilation, Less than 24 Consecutive Hours, Continuous Positive Airway Pressure (ICD-10-PCS; 2023-06-29)
DX: J93.83 Other pneumothorax (principal); J12.82 Pneumonia due to coronavirus disease 2019; J96.21 Acute and chronic respiratory failure with hypoxia; U07.1 COVID-19; R57.8 Other shock; J96.22 Acute and chronic respiratory failure with hypercapnia; N39.0 Urinary tract infection, site not specified; J44.1 Chronic obstructive pulmonary disease with (acute) exacerbation; J44.0 Chronic obstructive pulmonary disease with (acute) lower respiratory infection; F41.9 Anxiety disorder, unspecified; G43.909 Migraine, unspecified, not intractable, without status migrainosus; M81.0 Age-related osteoporosis without current pathological fracture; G89.29 Other chronic pain; M54.9 Dorsalgia, unspecified; E89.0 Postprocedural hypothyroidism; F17.210 Nicotine dependence, cigarettes, uncomplicated; N18.9 Chronic kidney disease, unspecified; G47.33 Obstructive sleep apnea (adult) (pediatric); Z99.81 Dependence on supplemental oxygen; E87.5 Hyperkalemia; I12.9 Hypertensive chronic kidney disease with stage 1 through stage 4 chronic kidney disease, or unspecified chronic kidney disease; I48.0 Paroxysmal atrial fibrillation; D63.1 Anemia in chronic kidney disease; R33.9 Retention of urine, unspecified; B96.5 Pseudomonas (aeruginosa) (mallei) (pseudomallei) as the cause of diseases classified elsewhere
CPT/HCPCS: 36410; 36415; 36569; 36600; 71045; 71250; 71260; 74177; 76937; 80048; 80053; 80076; 81000; 82140; 82805; 82947; 83605; 83690; 83735; 83880; 84100; 84439; 84443; 84484; 85007; 85025; 85027; 85610; 85730; 86141; 86850; 86900; 86901; 87040; 87070; 87077; 87081; 87088; 87186; 87205; 87636; 93005; 93306; 94640; 94660; 96361; 96374; 96375